=== PATIENT | female | born 1940 | race Caucasian/White ===

== ENCOUNTER 2020-09-06 07:12 | Outpatient (REF) | payer MEDICARE, SELFPAY ==
--- NOTE | ~2020-09-06 | XR_ITS ---
EXAMINATION: XR PELVIS CLINICAL INFORMATION: Hip pain. COMPARISON: None TECHNIQUE: AP view of the pelvis. FINDINGS: No acute fracture or dislocation. Severe bilateral hip joint space narrowing with mild bony remodeling, subchondral sclerosis, subchondral cystic change, and marginal osteophytes. Phleboliths within the pelvis. XR/XR pelvis 1-2V IMPRESSION: Severe right and left hip osteoarthritis.
== END 2020-09-06 07:13 | disposition home or self-care (01) ==
LOC: HO.HOSX 07:12
PROVIDERS: Visit Provider Orthopaedic Surgery
DX: M16.0 Bilateral primary osteoarthritis of hip (principal)
CPT/HCPCS: 72170; 99202

== ENCOUNTER → 2020-10-12 09:59 | Outpatient (BNVA) | payer MEDICARE, SELFPAY | PROVIDERS: PCP Nurse Practitioner Family; Visit Provider Orthopaedic Surgery ==

== ENCOUNTER → 2021-01-07 11:28 | Outpatient (BNVA) | payer MEDICARE, SELFPAY | PROVIDERS: Visit Provider Physician Assistant | DX: M16.11 Unilateral primary osteoarthritis, right hip (principal) | CPT/HCPCS: 99212 ==

== ENCOUNTER 2021-01-11 06:19 | Inpatient (IN) | payer MEDICARE, SELFPAY ==
[2021-01-04 11:51] VITALS: BP 169/77; PULSE 61; RESP 16; O2SAT 93; BMI 36.7
--- NOTE | 2021-01-04 12:37 | HO.ANESPROP2 ---
Documented by User: Holly Orellana NP 01/10/21 09:51 HPI - Anesthesia Eval Consult details Narrative: 71yo F for Right Hip Total Replacement on 01/11/21 Eliquis for afib Pacer in situ (interrogation from 11/2020 on chart) Per pest controller assistant, no absolute contraindiction to surgery PMFSH Active Problems Active Problems: All Active Problems (Updated 01/04/21 @ 12:34 by Homa Perez RN) Bilateral hip joint arthritis (Acute) Past Medical History Medical History (Updated 01/07/21 @ 12:07 by Ariana Allen PA-C) Atrial fibrillation Degenerative joint disease Hearing loss Hx of cardiac pacemaker Obesity (BMI 30-39.9) Obstructive sleep apnea Peripheral venous insufficiency Retinal artery occlusion TIA (transient ischemic attack) Transient cerebral ischemia Wears dentures Wears hearing aid in both ears Family History Family history of problems with anesthesia: No Surgical History Surgical History (Updated 01/04/21 @ 12:26 by Homa Perez RN) History of cataract surgery (~2016) History of esophagogastroduodenoscopy (EGD) Hx laparoscopic cholecystectomy Hx of colonoscopy Hx of tubal ligation Status post ORIF of fracture of ankle (~1984) History of Problems with Anesthesia: No Social History Social History (Updated 09/06/20 @ 08:38 by JOHAN Solares) Are you a primary career development director to a significant other at home: No Do you presently have visiting nurse or other home services: No Alcohol intake: never Patient Tobacco Use Status: Former Tobacco user Quit Date: 1999 Tobacco use type: Cigarette Use of substances other than those prescribed or required for medical reasons: No Have you been hit, kicked, punched, or otherwise hurt by someone within the past year? If so, by whom?: No Spiritual Healthcare Practices: none Yarsani Healthcare Practices: none Cultural Healthcare Practices: none Are you DNR?: No Advance Directives: No (will bring in) Advance Directives Information Provided: No Advance Directives on File: No Recently lost weight without trying: No Patient : No Current occupational status: retired Current occupation: right handed Narrative Narrative: No recent illness No CP/SOB with minimal activity Meds Allergies Allergy/AdvReac Type Severity Reaction Status Date / Time Seasonal Allergies Allergy Mild itching Verified 01/04/21 12:22 and sneezing Home Medications Medication Instructions Recorded Confirmed Last Taken Type duloxetine 30 mg capsule,delayed 30 mg PO Q OTHER DAY 09/03/20 01/04/21 Unknown History release metoprolol succinate 50 mg 50 mg PO DAILY 09/06/20 01/04/21 01/11/21 History tablet,extended release 24 hr apixaban 5 mg tablet (Eliquis) 5 mg PO BID 10/12/20 01/04/21 01/07/21 History acetaminophen 325 mg tablet 650 mg PO Q6H PRN 01/04/21 01/04/21 Unknown History (Tylenol) amiodarone 100 mg tablet 100 mg PO DAILY 01/04/21 01/04/21 Unknown History furosemide 20 mg tablet 20 mg PO DAILY 01/04/21 01/04/21 Unknown History losartan 50 mg tablet 50 mg PO DAILY 01/04/21 01/04/21 Unknown History Exam Exam Date and Time: January 04, 2021 1237 Height,Weight and Vital Signs: Height 5 ft 4 in Weight 97.069 kg Last Vital Signs Pulse 61 01/04/21 11:51 Resp 16 01/04/21 11:51 BP 169/77 H 01/04/21 11:51 Pulse Ox 93 01/04/21 11:51 Pertinent Lab Results Pertinent Lab Results: Laboratory Tests 01/06/21 10:43 WBC 7.2 Hgb 14.5 Hct 43.0 Plt Count 265 Laboratory Tests 01/04/21 13:16 Blood Type A Positive Antibody Screen NEGATIVE CMP, TSH, A1C 12/2020 WNL at PCP Narrative Narrative: EKG 12/16/20 paced rhythm versus SR with 1st degree AV block nonspecific ST-T wave abn ECHO 04/2019 Normal biV function. No significant valvular or pericardial pathology notes. Normal PA pressures. Pacer Interr 11/2020 Mode: AAIR<=>DDDR (mode switch 171) Lower rate: 60 PAINT LINE PRODUCTION SUPERVISOR <0.1% AP 99.4% Battery remainin.2yrs Airway Mallampati Class: II TM Dist: >3cm Neck ROM: Full Denture: Upper and Lower (Implants, removes at night) Heart: irreg Lungs: CTAB Assessment and Plan Assessment Anesthesia Assessment: Anesthesia Plan Discussed and PAT Visit Final Anesthetic Review Family History of Problems with Anesthesia: No History of Problems with Anesthesia: No Documented by User: Gigi Sorensen MD 01/11/21 08:19 [facility] Past Medical History Medical History (Updated 01/07/21 @ 12:07 by Ariana Allen PA-C) Atrial fibrillation Degenerative joint disease Hearing loss Hx of cardiac pacemaker Obesity (BMI 30-39.9) Obstructive sleep apnea Peripheral venous insufficiency Retinal artery occlusion TIA (transient ischemic attack) Transient cerebral ischemia Wears dentures Wears hearing aid in both ears Surgical History Surgical History (Updated 01/04/21 @ 12:26 by Homa Perez RN) History of cataract surgery (~2016) History of esophagogastroduodenoscopy (EGD) Hx laparoscopic cholecystectomy Hx of colonoscopy Hx of tubal ligation Status post ORIF of fracture of ankle (~1984) Social History Social History (Updated 09/06/20 @ 08:38 by JOHAN Solares) Are you a primary career development director to a significant other at home: No Do you presently have visiting nurse or other home services: No Alcohol intake: never Patient Tobacco Use Status: Former Tobacco user Quit Date: 1999 Tobacco use type: Cigarette Use of substances other than those prescribed or required for medical reasons: No Have you been hit, kicked, punched, or otherwise hurt by someone within the past year? If so, by whom?: No Spiritual Healthcare Practices: none Yarsani Healthcare Practices: none Cultural Healthcare Practices: none Are you DNR?: No Advance Directives: No (will bring in) Advance Directives Information Provided: No Advance Directives on File: No Recently lost weight without trying: No Patient : No Current occupational status: retired Current occupation: right handed Meds Allergies Allergy/AdvReac Type Severity Reaction Status Date / Time Seasonal Allergies Allergy Mild itching Verified 01/04/21 12:22 and sneezing Home Medications Medication Instructions Recorded Confirmed Last Taken Type duloxetine 30 mg capsule,delayed 30 mg PO Q OTHER DAY 09/03/20 01/04/21 Unknown History release metoprolol succinate 50 mg 50 mg PO DAILY 09/06/20 01/04/21 01/11/21 History tablet,extended release 24 hr apixaban 5 mg tablet (Eliquis) 5 mg PO BID 10/12/20 01/04/21 01/07/21 History acetaminophen 325 mg tablet 650 mg PO Q6H PRN 01/04/21 01/04/21 Unknown History (Tylenol) amiodarone 100 mg tablet 100 mg PO DAILY 01/04/21 01/04/21 Unknown History furosemide 20 mg tablet 20 mg PO DAILY 01/04/21 01/04/21 Unknown History losartan 50 mg tablet 50 mg PO DAILY 01/04/21 01/04/21 Unknown History Assessment and Plan Final Anesthetic Review ASA Class: III Final Preanesthetic Review: No Changes in Pt Med Stat, Meds/Allgs Chart Reviewed, Consent Obtained/Reviewed and Anes Risks/Benef Reviewed Patient Risk: High Procedure Risk: Intermediate Anesthetic Plan Anesthetic Plan: GA Disposition: Standard PACU
[2021-01-04 15:09] LABS: MRSA Nasal PCR NEGATIVE (Negative); SA Nasal PCR NEGATIVE (Negative)
[2021-01-06 10:44] LABS: MANUAL DIFF FLAG NO
[2021-01-06 11:03] LABS: Basophils Percent Auto 0.4 % (0-2); Eosinophils Absolute Auto 0.1 X10*3/uL (0.0-0.4); Hemoglobin 14.5 g/dl (12.0-16.0); Imm Gran Abs Auto 0.03 X10*3/uL (0.00-0.03); Imm Gran Pct Auto 0.4 % (0.0-0.4); Lymphocytes Absolute Auto 1.4 X10*3/uL (1.2-4.9); Lymphocytes Percent Auto 19.1 % (20-40); Mean Corpuscular HGB Conc 33.7 g/dl (31.0-35.0); Mean Corpuscular Hemoglobin 33.2 pg (27.0-33.0); Mean Corpuscular Volume 98.4 fL (80-98); Mean Platelet Volume 9.7 fL (9.4-12.3); Monocytes Absolute Auto 0.7 X10*3/uL (0.1-1.2); Monocytes Percent Auto 10.1 % (2-11); Neutrophils Absolute Auto 4.9 X10*3/uL (2.0-8.3); Platelet Count 265 X10*3/uL (160-400); Red Blood Count 4.37 X10*6/uL (4.20-5.50); Red Cell Distribution Width 12.9 % (11.0-16.0); White Blood Count 7.2 X10*3/uL (4.8-10.8)
[2021-01-11] VITALS (20 sets, daily range): BP systolic 127–214; BP diastolic 58–99; PULSE 60–71; RESP 14–22; TEMP 36.3–36.6; O2SAT 92–100
--- NOTE | ~2021-01-11 | XR_ITS ---
EXAMINATION: XR PELVIS CLINICAL INFORMATION: Right total hip replacement. COMPARISON: Pelvic radiograph dated from 09/06/2020. TECHNIQUE: AP view of the pelvis. FINDINGS: Status post total right-sided hip arthroplasty with expected postoperative edema and air. No evidence of periprosthetic fractures. The hardware is intact. Redemonstration of severe degenerative changes in the left hip with joint space narrowing, subchondral sclerosis, subchondral cystic changes, and marginal osteophytes. Mild to moderate degenerative changes in the pubic symphysis. Pelvic phleboliths. XR/XR pelvis 1-2V IMPRESSION: Postoperative changes following total right-sided hip arthroplasty without evidence of complications.
[2021-01-11 06:37] LABS: COVID-19 Test Negative (Negative)
[2021-01-11] MEDS: Lactated Ringers 1,000 ML 100 ML IVCONT (07:02)
--- NOTE | 2021-01-11 07:37 | MHC.SHP ---
Pre-Procedural Eval Section A Date of Service: 01/11/21 The patient is an INPATIENT: No Changes since office visit: Yes Patient answered all questions; No Cold of Flu in the past 2 weeks, No New Medical Problems and No Changes in Medication The History & Physical has been completed within 30 days and I have reviewed it.: Yes Section B Chief Complaint: osteoarthritis Allergies: Allergies Allergy/AdvReac Type Severity Reaction Status Date / Time Seasonal Allergies Allergy Mild itching Verified 01/04/21 12:22 and sneezing Plan I have reviewed the history and physical and performed a pertinent physical examination on my patient. No changes have occurred unless specified.
--- NOTE | 2021-01-11 07:38 | P.BOP_ITS ---
Brief Operative Note Date of Service: 01/11/21 Pre-op diagnosis: right hip OA Post-op diagnosis: same Procedure: Right THERON Implants: Juan Miguel accolade2 #4 127 deg/ Surgeon: Casa Lee MD Anesthesia: GETA and local Was an Human Services Program Specialist used for this Procedure?: No Human Services Program Specialist: Ariana Allen Estimated blood loss (mL): 200 IV fluids (mL): 1,000 Pathology: other Condition: stable Disposition: PACU
--- NOTE | 2021-01-11 07:38 | W.PM.OPN ---
Operative Note Operative Note Date of Service: 01/11/21 Narrative: Pre-op diagnosis: right hip OA Post-op diagnosis: same Procedure: Right THERON Implants: Juan Miguel accolade2 #4 127 deg/ Surgeon: Casa Lee MD Anesthesia: GETA and local Was an Trigonometry Tutor used for this Procedure?: No Trigonometry Tutor: Ariana Allen Estimated blood loss (mL): 200 IV fluids (mL): 1,000 Pathology: other Condition: stable Disposition: PACU Procedure in detail: Patient was brought into the operating room and placed in the left lateral decubitus position. All bony prominences were well padded and the limb was prepped and draped in standard sterile fashion. Time-out was called to identify proper site procedure proper surgeon IV antibiotics and 1 g of transaxemic acid were administered. I began by making a curvilinear incision over the posterolateral aspect of the greater trochanter. Dissection was taken down to the tensor fascia which was incised in line with the incision and a Charnley retractor was placed. Cautery was used to maintain hemostasis. A werewolf device was also used. The hip was internally rotated and the external rotators were identified. The vessels were cauterized and a full-thickness capsular/external rotator layer was developed starting just proximal to the piriformis. This layer was tagged and a dull Hohmann retractor was placed underneath the neck in the hip was dislocated. The head was deformed and eburnated. A neck cut was made 1 cm proximal to the lesser trochanter and the head and neck were removed and measured as a 45mm on the back table. I then placed my anterior-posterior acetabular retractors and performed a labrectomy. The cup was arthritic. I then started with a 42mm and sequentially reamed up to a size 50mm and impacted a 50 mm cep at approximately 45 degrees of inclination and 25 degrees of version. I then placed a neutral liner and turned my attention to the femur. I identified the piriformis insertion and used this as a starting point for my flores cutter. The medius tendon was protected with a Hibs retractor. I then used a Charnley awl to identify the canal and a curved curette to remove the lateral bone. I irrigated copiously. I then sequentially broached in the patient's natural version to a size 4 and placed my trial implants. Using a trail head I took the hip through range of motion. I was very satisfied with the stability and length. Therefore I removed all instrumentation and copiously irrigated. I placed my final femoral implants and again took the hip through range of motion and was satisfied with the stability and length. I then irrigated for 3 minutes with iodine and placed 1 g of local tranaxemic acid. I then performed a capsular closure with 2.0 fiberwire, Lurdes's fascia with 0 Vicryl, subcuticular with 2-0 Vicryl and the skin with charlie. Patient was placed into a sterile dressing. Local anesthetic was administered at the start and completion of the case. Radiographs were obtained at the completion of the case and I was satisfied with the component position. Patient was extubated brought to the recovery room in stable condition.
[2021-01-11] MEDS: ceFAZolin Sodium/Dextrose,Iso 2 GM/50 ML PIGGYBACK IV ×2 (08:00→14:17)
[2021-01-11] MEDS: oxyCODONE HCl Immed Release 5 MG TABLET PO ×3 (10:03→23:50)
[2021-01-11] MEDS: HYDROmorphone HCl 0.5 MG/0.5 ML SYRINGE 0.25 MG IVPUSH ×5 (10:04→20:59)
[2021-01-11] MEDS: Dextrose 5 % and 0.45 % NaCl 1,000 ML 80 ML IVCONT ×2 (11:42→23:56)
--- NOTE | 2021-01-11 14:52 | PM.IMCN ---
History of Present Illness Data of Consult Service Date: 01/11/21 Requesting physician: Casa Lee Primary Care Provider: Mert Yin MD [facility] Reason for consult: Medical management 80-year-old woman admitted by Orthopedic surgery and is status post right total hip arthroplasty. Vital signs are stable although blood pressure is elevated. She has good pain control at this time. She is currently on a bed in the chair. She has no acute medical complaints. Review of Systems Review of Systems: Denies any recent fever chills or decrease in appetite respiratory denies any shortness of breath coverage production cardiovascular denies chest pain gastrointestinal denies any dysphagia abdominal pain nausea vomiting or diarrhea genitourinary denies any dysuria frequency or hematuria musculoskeletal some pain to hip neuropsych denies any weakness or seizures all other systems reviewed are negative [facility] Medical History (Updated 01/11/21 @ 15:29 by Aydee Nicolas NP) Atrial fibrillation Degenerative joint disease Hearing loss Hx of cardiac pacemaker Obesity (BMI 30-39.9) Obstructive sleep apnea Peripheral venous insufficiency Retinal artery occlusion TIA (transient ischemic attack) Transient cerebral ischemia Wears dentures Wears hearing aid in both ears Pertinent family history: . Surgical History History of cataract surgery (~2016) History of esophagogastroduodenoscopy (EGD) Hx laparoscopic cholecystectomy Hx of colonoscopy Hx of tubal ligation Status post ORIF of fracture of ankle (~1984) Social History (Updated 09/06/20 @ 08:38 by JOHAN Solares) Are you a primary childcare teacher to a significant other at home: No Do you presently have visiting nurse or other home services: No Alcohol intake: never Patient Tobacco Use Status: Former Tobacco user Quit Date: 1999 Tobacco use type: Cigarette Use of substances other than those prescribed or required for medical reasons: No Currently Displaying Signs/Symptoms of Drug Intoxication Withdrawal: No Have you been hit, kicked, punched, or otherwise hurt by someone within the past year? If so, by whom?: No Spiritual Healthcare Practices: none Yazidism Healthcare Practices: none Cultural Healthcare Practices: none Are you DNR?: No Advance Directives: No (will bring in) Advance Directives Information Provided: No Advance Directives on File: No Do you have thoughts of harming others: None Do you have a plan to hurt others: No Plan Recently lost weight without trying: No Patient : No Current occupational status: retired Current occupation: right handed Meds Allergies Allergy/AdvReac Type Severity Reaction Status Date / Time Seasonal Allergies Allergy Mild itching Verified 01/04/21 12:22 and sneezing Active Medications: Current Medications Acetaminophen (Acetaminophen 325 Mg Tablet) 650 mg PO Q6H PRN PRN Reason: Pain, Mild (Pain Scale 1-3) Celecoxib (Celecoxib 200 Mg Capsule) 200 mg PO BID [facility] Docusate Sodium (Docusate Sodium 100 Mg Capsule) 100 mg PO BID [facility] Enoxaparin Sodium (Enoxaparin Sodium 40 Mg/0.4 Ml Syringe) 40 mg SUBCUT Q24H [place] Hydromorphone HCl (Hydromorphone Hcl 0.5 Mg/0.5 Ml Syringe) 0.25 mg IVPUSH Q4H PRN; Protocol PRN Reason: Pain, Severe (Pain Scale 7-10) Promethazine HCl 12.5 mg/ (Sodium Chloride) 50.5 mls @ 202 mls/hr IV ONCE PRN PRN Reason: Nausea and Vomiting Last Infusion: 01/11/21 10:23 Dose: Infused Documented by: Dextrose/Sodium Chloride (D51/2ns) 1,000 mls @ 80 mls/hr IVCONT .[id number] [facility] Last Admin: 01/11/21 11:42 Dose: 80 mls/hr Documented by: Cefazolin Sodium/Dextrose (Ancef) 2 gm in 50 mls @ 100 mls/hr IV POSTOP@1400 [facility] Last Admin: 01/11/21 14:17 Dose: 100 mls/hr Documented by: Ondansetron HCl (Ondansetron Hcl 4 Mg/2 Ml Vial) 4 mg IVPUSH ONCE PRN PRN Reason: Nausea and Vomiting Ondansetron HCl (Ondansetron Hcl 4 Mg/2 Ml Vial) 4 mg IVPUSH Q8H PRN PRN Reason: Nausea and Vomiting Oxycodone HCl (Oxycodone Hcl Immed Release 5 Mg Tablet) 5 mg PO Q4H PRN PRN Reason: Pain, Moderate (Pain Scale 4-6 Last Admin: 01/11/21 14:24 Dose: 5 mg Documented by: Sodium Chloride (0.9 % Sodium Chloride Flush 3 Ml Syringe) 3 ml IVFLUSH QSAKFT [facility] Home Medications Medication Instructions Recorded Confirmed Last Taken Type duloxetine 30 mg capsule,delayed 30 mg PO Q OTHER DAY 09/03/20 01/04/21 Unknown History release metoprolol succinate 50 mg 50 mg PO DAILY 09/06/20 01/04/21 01/11/21 History tablet,extended release 24 hr apixaban 5 mg tablet (Eliquis) 5 mg PO BID 10/12/20 01/04/21 01/07/21 History acetaminophen 325 mg tablet 650 mg PO Q6H PRN 01/04/21 01/04/21 Unknown History (Tylenol) amiodarone 100 mg tablet 100 mg PO DAILY 01/04/21 01/04/21 Unknown History furosemide 20 mg tablet 20 mg PO DAILY 01/04/21 01/04/21 Unknown History losartan 50 mg tablet 50 mg PO DAILY 01/04/21 01/04/21 Unknown History Physical Exam Vital Signs and Narrative: Vital Signs: Last Vital Signs Temp 97.6 F 01/11/21 12:38 Pulse 63 01/11/21 14:01 Resp 18 01/11/21 12:38 BP 188/89 H 01/11/21 12:38 Pulse Ox 98 01/11/21 14:01 Body Mass Index 36.7 Appearing in no acute distress head is normocephalic atraumatic eyes pupils are PERRLA sclera is anicteric mouth throat mucous membranes are intact and moist neck is supple no lymphadenopathy, no JVD noted lung sounds are clear to auscultation heart regular rate rhythm, clear S1, S2 positive bowel sounds, abdomen is soft, nontender neuro patient is alert x3, no focal deficits MSK surgical dressing intact, unable to visualize surgical incision as inital dressing is in place Results Labs CBC and Chem 7: 01/06/21 10:43 Labs: Laboratory Results - last 24 hr 01/11/21 06:10 COVID-19 (MICHELE) Negative COVID-19 Clin Com See Note Imaging Radiologist's Impressions: Impressions Pelvis X-Ray 01/11/21 08:29 IMPRESSION: Postoperative changes following total right-sided hip arthroplasty without evidence of complications. Assessment and Plan (1) Afib: Status: Acute (2) Hypertension: Status: Acute 80-year-old woman admitted by Orthopedic surgery and is status post right total hip arthroplasty Right total hip arthroplasty Management as per surgical team Pain management History of atrial fibrillation. Heart rate Continue amiodarone and metoprolol Apixaban on hold postoperatively Hypertension. Elevated blood pressure Continue losartan and Lasix DVT prophylaxis with mechanical compression boots Attending Dr. Go full code
[2021-01-11] MEDS: Celecoxib 200 MG CAPSULE PO (19:46)
[2021-01-11] MEDS: Docusate Sodium 100 MG CAPSULE PO (19:46)
[2021-01-11] MEDS: Acetaminophen 325 MG TABLET 650 MG PO (19:47)
[2021-01-12] VITALS (7 sets, daily range): BP systolic 116–164; BP diastolic 53–74; PULSE 62–72; RESP 16–18; TEMP 36.1–37; O2SAT 95–99
[2021-01-12] MEDS: HYDROmorphone HCl 0.5 MG/0.5 ML SYRINGE 0.25 MG IVPUSH ×3 (01:31→10:55)
[2021-01-12 05:09] LABS: MANUAL DIFF FLAG NO
[2021-01-12 05:12] LABS: Basophils Percent Auto 0.1 % (0-2); Hematocrit 32.2 % (37.0-47.0); Hemoglobin 10.2 g/dl (12.0-16.0); Imm Gran Abs Auto 0.05 X10*3/uL (0.00-0.03); Imm Gran Pct Auto 0.5 % (0.0-0.4); Lymphocytes Absolute Auto 0.7 X10*3/uL (1.2-4.9); Lymphocytes Percent Auto 6.6 % (20-40); Mean Corpuscular HGB Conc 31.7 g/dl (31.0-35.0); Mean Corpuscular Hemoglobin 33.4 pg (27.0-33.0); Mean Corpuscular Volume 105.6 fL (80.0-98.0); Monocytes Absolute Auto 0.9 X10*3/uL (0.1-1.2); Monocytes Percent Auto 8.1 % (2-11); Neutrophils Absolute Auto 8.88 x10*3/uL (2.0-8.3); Neutrophils Percent Auto 84.7 % (45-73); Platelet Count 195 X10*3/uL (160-400); Red Blood Count 3.05 X10*6/uL (4.20-5.50); White Blood Count 10.5 X10*3/uL (4.8-10.8)
[2021-01-12 07:33] LABS: Anion Gap 12 (12-20); Blood Urea Nitrogen 19 mg/dL (9-16); Carbon Dioxide 24 mmol/L (22-29); Chloride 103 mmol/L (96-108); Creatinine Clr Calc Pharmacy 74.7; Estimated Glomerular Filt Rate > 60; Glucose Fasting 151 mg/dL (60-99); Potassium 4.4 mmol/L (3.3-5.1); Sodium 135 mmol/L (135-145)
--- NOTE | 2021-01-12 08:06 | PM.PNORT ---
Subjective Subjective Date of Service: 01/12/21 Interval history: POD1 s/p RTHA with Dr. Lee. Patient is resting in bed in no acute distress. No overnight events. Physical Exam Vital Signs: Vital Signs: Last Vital Signs Temp 97.8 F 01/12/21 07:11 Pulse 63 01/12/21 07:11 Resp 17 01/12/21 07:11 BP 135/53 L 01/12/21 07:11 Pulse Ox 95 01/12/21 07:11 Body Mass Index 36.7 Const: General: cooperative, healthy appearing and no acute distress Resp: Effort & Inspection: normal respiratory effort and able to speak in complete sentences Cardio: Rate: regular rate Peripheral pulses: Peripheral pulses 2+ throughout GI: Palpation (GI): Soft to palpation Skin: Lesions: no lesions Rashes: no rashes Extrem: Other: Rt hip aquacel is clean. dry, and intact. NVI Procedures Date of Service Date of Service: 01/12/21 Progress Note: A&P Assessment and plan (1) S/P total hip arthroplasty: Status: Acute Assessment and Plan: Continue pain mgmnt Begin Lovenox for dvt ppx to resume Eliquis POD2 begin PT for RTHA Dispo planning-Pending PT eval, pain mgmnt Fall Risk Details Current Medications: Current Medications Acetaminophen (Acetaminophen 325 Mg Tablet) 650 mg PO Q6H PRN PRN Reason: Pain, Mild (Pain Scale 1-3) Last Admin: 01/11/21 19:47 Dose: 650 mg Documented by: Amiodarone HCl (Amiodarone Hcl 200 Mg Tablet) 100 mg PO DAILY [facility] Celecoxib (Celecoxib 200 Mg Capsule) 200 mg PO BID [facility] Last Admin: 01/11/21 19:46 Dose: 200 mg Documented by: Docusate Sodium (Docusate Sodium 100 Mg Capsule) 100 mg PO BID [facility] Last Admin: 01/11/21 19:46 Dose: 100 mg Documented by: Duloxetine HCl (Duloxetine Hcl 30 Mg Capsule.) 30 mg PO DAILY [facility] Enoxaparin Sodium (Enoxaparin Sodium 40 Mg/0.4 Ml Syringe) 40 mg SUBCUT Q24H [facility] Furosemide (Furosemide 20 Mg Tablet) 20 mg PO DAILY [facility]; Protocol Hydromorphone HCl (Hydromorphone Hcl 0.5 Mg/0.5 Ml Syringe) 0.25 mg IVPUSH Q4H PRN; Protocol PRN Reason: Pain, Severe (Pain Scale 7-10) Last Admin: 01/12/21 05:28 Dose: 0.25 mg Documented by: Promethazine HCl 12.5 mg/ (Sodium Chloride) 50.5 mls @ 202 mls/hr IV ONCE PRN PRN Reason: Nausea and Vomiting Last Infusion: 01/11/21 10:23 Dose: Infused Documented by: Dextrose/Sodium Chloride (D51/2ns) 1,000 mls @ 80 mls/hr IVCONT .[id number] [facility] Last Admin: 01/11/21 23:56 Dose: 80 mls/hr Documented by: Cefazolin Sodium/Dextrose (Ancef) 2 gm in 50 mls @ 100 mls/hr IV POSTOP@1400 [facility] Last Infusion: 01/11/21 14:53 Dose: Infused Documented by: Losartan Potassium (Losartan Potassium 50 Mg Tablet) 50 mg PO DAILY [facility]; Protocol Metoprolol Succinate (Metoprolol Succinate Er 50 Mg Tab.Er.24h) 50 mg PO DAILY [facility]; Protocol Ondansetron HCl (Ondansetron Hcl 4 Mg/2 Ml Vial) 4 mg IVPUSH ONCE PRN PRN Reason: Nausea and Vomiting Ondansetron HCl (Ondansetron Hcl 4 Mg/2 Ml Vial) 4 mg IVPUSH Q8H PRN PRN Reason: Nausea and Vomiting Oxycodone HCl (Oxycodone Hcl Immed Release 5 Mg Tablet) 5 mg PO Q4H PRN PRN Reason: Pain, Moderate (Pain Scale 4-6 Last Admin: 01/11/21 23:50 Dose: 5 mg Documented by: Sodium Chloride (0.9 % Sodium Chloride Flush 3 Ml Syringe) [facility] Last Admin: 01/12/21 01:15 Dose: Not Given Documented by: Time Spent With Patient Time: Total time spent is greater than 50% in coordination of care (as documented) at patient's floor/unit and/or counseling patient: Time with patient: less than 15 minutes Quality Stroke Does the patient have a stroke diagnosis?: No VTE Prior VTE?: No VTE Risk Level:: Medical - moderate - high VTE Device Contraindication: N/A - Device Ordered VTE Drug Contraindication: N/A - Med Ordered
[2021-01-12] MEDS: Metoprolol Succinate ER 50 MG TAB.ER.24H PO (08:41)
[2021-01-12] MEDS: Losartan Potassium 50 MG TABLET PO (08:41)
[2021-01-12] MEDS: oxyCODONE HCl Immed Release 5 MG TABLET PO ×3 (08:41→17:26)
[2021-01-12] MEDS: Enoxaparin Sodium 40 MG/0.4 ML SYRINGE SUBCUT (08:41)
[2021-01-12] MEDS: Amiodarone HCL 200 MG TABLET 100 MG PO (08:41)
[2021-01-12] MEDS: Furosemide 20 MG TABLET PO (08:41)
[2021-01-12] MEDS: Docusate Sodium 100 MG CAPSULE PO ×2 (08:41→20:50)
[2021-01-12] MEDS: Celecoxib 200 MG CAPSULE PO ×2 (08:41→20:50)
[2021-01-12] MEDS: DULoxetine HCl 30 MG CAPSULE.DR PO (08:41)
--- NOTE | 2021-01-12 09:36 | MHC.CM.PN ---
IMM 01/12/21, EMR REVIEWED, PT ADMITTED W/RIGHT THERON, PT REPORTS SHE LIVES W/, HAS A ROLLATER WALKER ON LOAN FROM [facility] AND HYDRAULIC LIFT FOR TUB HOWEVER HAS TO USES STEPS TO GET TO IT. PT HAS NO HOME SERVICES AND IS INSISTENT SHE WANTS TO GOT TO STR, PT'S PREFERENCE IS [facility] HOWEVER WILL GO [facility] IF MM IS UNABLE TO SECURE BED, PT VERIFIES PCP AND HCP, NO HCP ON FILE HOWEVER PT REPORTS SHE GAVE HER HCP TO ORTHO PA AND CM WILL CONTACT ORTHO FOR COPY, PT DOES REPORT HER HCP IS HER MARLEEN TAVARES [phone]. D/C PLAN: STR W/ACTION FOR BLS TRANSPORT
--- NOTE | 2021-01-12 10:04 | HO.PM.IMPN ---
Subjective Subjective Date of Service: 01/12/21 Interval History: f/u on hip post hip arthroplasty, doing well , afib is controlled, BP contoleed Review of Systems no chest pain no sob no fever so ache in the operated hip Physical Exam Vital Signs: Vital Signs: Last Vital Signs Temp 97.8 F 01/12/21 07:11 Pulse 63 01/12/21 09:25 Resp 17 01/12/21 07:11 BP 135/53 L 01/12/21 09:25 Pulse Ox 95 01/12/21 09:25 Body Mass Index 36.7 General: AO X 3, no acute distress Resp: CTA bilateral CVS: S1,S2,RRR GI: +BS, NT, no distention Skin: No rash, hip area dressing intact Neuro: motor grossly intact Psych: appropriate affect Objective Data Active Medications Acetaminophen (Acetaminophen 325 Mg Tablet) 650 mg PO Q6H PRN PRN Reason: Pain, Mild (Pain Scale 1-3) Last Admin: 01/11/21 19:47 Dose: 650 mg Documented by: RANDALL Amiodarone HCl (Amiodarone Hcl 200 Mg Tablet) 100 mg PO DAILY [facility] Last Admin: 01/12/21 08:41 Dose: 100 mg Documented by: MALDONADO Celecoxib (Celecoxib 200 Mg Capsule) 200 mg PO BID [facility] Last Admin: 01/12/21 08:41 Dose: 200 mg Documented by: MALDONADO Docusate Sodium (Docusate Sodium 100 Mg Capsule) 100 mg PO BID [facility] Last Admin: 01/12/21 08:41 Dose: 100 mg Documented by: MALDONADO Duloxetine HCl (Duloxetine Hcl 30 Mg Capsule.) 30 mg PO DAILY [facility] Last Admin: 01/12/21 08:41 Dose: 30 mg Documented by: MALDONADO Enoxaparin Sodium (Enoxaparin Sodium 40 Mg/0.4 Ml Syringe) 40 mg SUBCUT Q24H [facility] Last Admin: 01/12/21 08:41 Dose: 40 mg Documented by: MALDONADO Furosemide (Furosemide 20 Mg Tablet) 20 mg PO DAILY [facility]; Protocol Last Admin: 01/12/21 08:41 Dose: 20 mg Documented by: MALDONADO Hydromorphone HCl (Hydromorphone Hcl 0.5 Mg/0.5 Ml Syringe) 0.25 mg IVPUSH Q4H PRN; Protocol PRN Reason: Pain, Severe (Pain Scale 7-10) Last Admin: 01/12/21 05:28 Dose: 0.25 mg Documented by: DONTAE Promethazine HCl 12.5 mg/ (Sodium Chloride) 50.5 mls @ 202 mls/hr IV ONCE PRN PRN Reason: Nausea and Vomiting Last Infusion: 01/11/21 10:23 Dose: 0 mls/hr Documented by: ANDERSON Dextrose/Sodium Chloride (D51/2ns) 1,000 mls @ 80 mls/hr IVCONT .[id number] [facility] Last Admin: 01/11/21 23:56 Dose: 80 mls/hr Documented by: DONTAE Cefazolin Sodium/Dextrose (Ancef) 2 gm in 50 mls @ 100 mls/hr IV POSTOP@1400 [facility] Last Infusion: 01/11/21 14:53 Dose: 0 mls/hr Documented by: COTEMA Losartan Potassium (Losartan Potassium 50 Mg Tablet) 50 mg PO DAILY [facility]; Protocol Last Admin: 01/12/21 08:41 Dose: 50 mg Documented by: MALDONADO Metoprolol Succinate (Metoprolol Succinate Er 50 Mg Tab.Er.24h) 50 mg PO DAILY [facility]; Protocol Last Admin: 01/12/21 08:41 Dose: 50 mg Documented by: MALDONADO Ondansetron HCl (Ondansetron Hcl 4 Mg/2 Ml Vial) 4 mg IVPUSH ONCE PRN PRN Reason: Nausea and Vomiting Ondansetron HCl (Ondansetron Hcl 4 Mg/2 Ml Vial) 4 mg IVPUSH Q8H PRN PRN Reason: Nausea and Vomiting Oxycodone HCl (Oxycodone Hcl Immed Release 5 Mg Tablet) 5 mg PO Q4H PRN PRN Reason: Pain, Moderate (Pain Scale 4-6 Last Admin: 01/12/21 08:41 Dose: 5 mg Documented by: MALDONADO Sodium Chloride (0.9 % Sodium Chloride Flush 3 Ml Syringe) [facility] Last Admin: 01/12/21 08:44 Dose: Not Given Documented by: MALDONADO Non-Admin Reason: IV Running Labs CBC & Chem 7: 01/12/21 04:55 01/12/21 06:41 Labs: Laboratory Results - last 24 hr 01/12/21 01/12/21 04:55 06:41 MCV 105.6 H MCH 33.4 H MCHC 31.7 RDW 13.0 Plt Count 195 MPV 10.0 Immature Gran % (Auto) 0.5 H Neut % (Auto) 84.7 H Lymph % (Auto) 6.6 L Moore % (Auto) 8.1 Eos % (Auto) 0.0 Baso % (Auto) 0.1 Lymph # (Auto) 0.7 L Moore # (Auto) 0.9 Eos # (Auto) 0.0 Baso # (Auto) 0.0 Abs Immat Gran (auto) 0.05 H Absolute Neuts (auto) 8.88 H Absolute Nucleated RBC 0.000 Nucleated RBC % (auto) 0.0 Anion Gap 12 Estim Creat Clear Calc 74.7 Estimated GFR > 60 Fasting Glucose 151 H Calcium 8.0 L Assessment and Plan (1) Afib: Status: Acute (2) Hypertension: Status: Acute Assessment and Plan: 80/F with AFIB, HTN, s/p elective R TKT, doing well POD1 s/p Right total hip arthroplasty Management by Ortho Chronic atrial fibrillation.? rate and rythm controlled. Continue amiodarone and metoprolol Apixaban to be resume when deemed apropirated by ortho Hypertension.?Controlled, continue Losartand and Lasix. DVT prophylaxis with mechanical compression boots, and apixiban to re be restarted later Quality Stroke Does the patient have a stroke diagnosis?: No VTE Prior VTE?: No VTE Risk Level:: Medical - moderate - high VTE Device Contraindication: N/A - Device Ordered VTE Drug Contraindication: N/A - Med Ordered
--- NOTE | 2021-01-12 12:55 | HO.POSTANES ---
Post Anesthesia Evaluation Post Anesthesia Evaluation Vital Signs: Vital Signs Temp Pulse Resp BP Pulse Ox 01/12/21 12:00 97.6 F 67 18 140/56 H 95 01/12/21 09:25 63 135/53 L 95 01/12/21 07:11 97.8 F 63 17 135/53 L 95 01/12/21 03:44 97 F 62 16 164/74 H 99 Anesthesia: General Mental Status: Awake Pain Control: Satisfactory Nausea/Vomiting: None Hydration: Adequate Anesthesia-Related Issues: No Anes. Related Issues
[2021-01-12] MEDS: Acetaminophen 325 MG TABLET 650 MG PO (13:12)
[2021-01-12] MEDS: 0.9 % Sodium Chloride Flush 3 ML SYRINGE IVFLUSH ×2 (15:17→20:52)
[2021-01-13] VITALS: BP 147/80; RESP 16; TEMP 36.1; O2SAT 99
[2021-01-13] MEDS: oxyCODONE HCl Immed Release 5 MG TABLET PO ×3 (00:33→10:10)
[2021-01-13 04:00] VITALS: RESP 16
[2021-01-13 05:32] LABS: MANUAL DIFF FLAG NO
[2021-01-13 05:43] LABS: Basophils Percent Auto 0.1 % (0-2); Eosinophils Percent Auto 0.3 % (0-4); Hematocrit 33.4 % (37.0-47.0); Hemoglobin 11.2 g/dl (12.0-16.0); Imm Gran Abs Auto 0.06 X10*3/uL (0.00-0.03); Imm Gran Pct Auto 0.7 % (0.0-0.4); Lymphocytes Absolute Auto 1.6 X10*3/uL (1.2-4.9); Lymphocytes Percent Auto 18.8 % (20-40); Mean Corpuscular HGB Conc 33.5 g/dl (31.0-35.0); Mean Corpuscular Hemoglobin 33.3 pg (27.0-33.0); Mean Corpuscular Volume 99.4 fL (80.0-98.0); Mean Platelet Volume 10.1 fL (9.4-12.3); Monocytes Absolute Auto 1.1 X10*3/uL (0.1-1.2); Monocytes Percent Auto 13.1 % (2-11); Neutrophils Absolute Auto 5.81 x10*3/uL (2.0-8.3); Platelet Count 199 X10*3/uL (160-400); Red Blood Count 3.36 X10*6/uL (4.20-5.50); Red Cell Distribution Width 13.2 % (11.0-16.0); White Blood Count 8.7 X10*3/uL (4.8-10.8)
[2021-01-13 05:59] LABS: Anion Gap 8 (12-20); Blood Urea Nitrogen 24 mg/dL (9-16); Calcium 8.2 mg/dL (8.4-10.2); Carbon Dioxide 29 mmol/L (22-29); Chloride 106 mmol/L (96-108); Estimated Glomerular Filt Rate > 60; Glucose Fasting 116 mg/dL (60-99); Potassium 5.2 mmol/L (3.3-5.1); Sodium 138 mmol/L (135-145)
[2021-01-13 07:42] VITALS: BP 147/80; O2SAT 99
[2021-01-13 07:50] VITALS: BP 138/64; PULSE 86; RESP 18; TEMP 36.2; O2SAT 95
--- NOTE | 2021-01-13 09:26 | P.DS_ITS ---
DS: Providers Provider Date of Service: 01/13/21 Date of admission: 01/11/21 06:19 Primary care physician: Mert Yin MD Consults: 01/11/21 12:15 Consult to Hospitalist Routine Consulting Provider: Hospitalist Reason For Exam: medical managment DS: Diagnosis Discharge Diagnosis (1) S/P total hip arthroplasty: Status: Acute DS: Summary Hospital Course Hospital Course: The patient underwent a successful right total hip arthroplasty, was transferred to PACU and then to the floor to recover. During their stay, their vitals were stable, afebrile at 97.1. Labs were unremarkable, H/H 11.2/33.4. POD 1 she was started on lovenox for DVT ppx, they also received PT/OT services twice a day. Prior to discharge, their dressing was change, incision clean dry and intact, new Aquacel dressing applied and the plan was to be discharged to [facility]. She should resume her home dose of Eliquis 01/14/21 Time Spent with Patient Time attestation: Total time spent providing and/or coordinating discharge services: Discharge coordination time: Less than 30 minutes Quality: Stroke Does the patient have a stroke diagnosis?: No Physical Exam Vital Signs: Vital Signs: Last Vital Signs Temp 97.1 F 01/13/21 07:50 Pulse 86 01/13/21 07:50 Resp 18 01/13/21 07:50 BP 138/64 01/13/21 07:50 Pulse Ox 95 01/13/21 07:50 Body Mass Index 36.7 Extrem: Other: incision clean dry and intact. [place] intact. No erythema or effusion. Calf supple nontender. Neurovascularly intact. DS: Data Data Completed and Pending Pending studies at discharge: Pending at discharge 01/11/21 08:30 Surgical [PTH] Routine Labs on day of discharge: Laboratory Results - last 24 hr 01/13/21 01/13/21 05:15 05:15 WBC 8.7 RBC 3.36 L Hgb 11.2 L Hct 33.4 L MCV 99.4 H D MCH 33.3 H MCHC 33.5 RDW 13.2 Plt Count 199 MPV 10.1 Immature Gran % (Auto) 0.7 H Neut % (Auto) 67.0 Lymph % (Auto) 18.8 L [place] % (Auto) 13.1 H Eos % (Auto) 0.3 Baso % (Auto) 0.1 Lymph # (Auto) 1.6 [place] # (Auto) 1.1 Eos # (Auto) 0.0 Baso # (Auto) 0.0 Abs Immat Gran (auto) 0.06 H Absolute Neuts (auto) 5.81 Absolute Nucleated RBC 0.000 Nucleated RBC % (auto) 0.0 Sodium 138 Potassium 5.2 H Chloride 106 Carbon Dioxide 29 Anion Gap 8 L BUN 24 H Creatinine 0.77 Estim Creat Clear Calc 67.0 Estimated GFR > 60 Fasting Glucose 116 H Calcium 8.2 L Discharge Plan Discharge Patient Disposition: er [facility] Discharge Diagnosis: s/p RT THERON Referrals: Ariana Allen PA-C [Physician Forestry And Wildlife Manager] - 2 Weeks (01/27/21 11:30 [facility] Orthopedic Surgeons Ariana Allen PA-C) Discharge Medications: New docusate sodium 100 mg Capsule 100 mg PO BID 30 Days Qty: 60 RF: 0 oxycodone 5 mg Tablet 5 mg PO Q4H PRN (Reason: Pain, Moderate (Pain Scale 4-6) 7 Days Qty: 42 RF: 0 Continued losartan 50 mg Tablet 50 mg PO DAILY RF: 0 furosemide 20 mg Tablet 20 mg PO BID RF: 0 amiodarone 100 mg Tablet 100 mg PO DAILY RF: 0 acetaminophen [Tylenol] 325 mg Tablet 650 mg PO Q6H PRN (Reason: Pain) RF: 0 duloxetine 30 mg capsule,delayed release(DR/EC) 30 mg PO DAILY RF: 0 metoprolol succinate 50 mg tablet extended release 24 hr 50 mg PO DAILY RF: 0 Eliquis 5 mg tablet 5 mg PO BID RF: 0 Discharge Orders: Discharge Order (Routine); Ordered 01/13/21 Ordered By: Ariana Allen Diet: regular diet Activity on Discharge: Use cane or walker Stand Alone Forms: Patient Portal Discharge page Care Plan Goals: Restore function of joint Health Concerns: none Plan of Treatment: Physical Therapy Pain management DVT prophylaxis Assessment: * Physical Therapy for Total hip arthroplasty: posterior precautions, gait training, ROM, strength * Limit stair climbing * No showering, no tub bath-keep dressing clean, dry and intact * No driving x6 weeks * Resume Home dose Eliquis 01/14/21 * Follow up with [facility] Orthopedics in 2 weeks
[2021-01-13] MEDS: Losartan Potassium 50 MG TABLET PO (09:59)
[2021-01-13] MEDS: Celecoxib 200 MG CAPSULE PO (09:59)
[2021-01-13] MEDS: Furosemide 20 MG TABLET PO (09:59)
[2021-01-13] MEDS: 0.9 % Sodium Chloride Flush 3 ML SYRINGE IVFLUSH (09:59)
[2021-01-13] MEDS: Amiodarone HCL 200 MG TABLET 100 MG PO (09:59)
[2021-01-13] MEDS: DULoxetine HCl 30 MG CAPSULE.DR PO (09:59)
[2021-01-13] MEDS: Docusate Sodium 100 MG CAPSULE PO (09:59)
[2021-01-13] MEDS: Metoprolol Succinate ER 50 MG TAB.ER.24H PO (10:00)
[2021-01-13] MEDS: Enoxaparin Sodium 40 MG/0.4 ML SYRINGE SUBCUT (10:00)
--- NOTE | 2021-01-13 10:09 | HO.PM.IMPN ---
Subjective Subjective Date of Service: 01/13/21 Interval History: f/u on hip post hip arthroplasty, doing well , no new issues, ready to go to rehab Review of Systems no chest pain no sob no fever so ache in the operated hip Constitutional General: AO X 3, no acute distress Resp: CTA bilateral CVS: S1,S2,RRR GI: +BS, NT, no distention Skin: No rash, wound d/c/i Neuro: motor grossly intact Psych: appropriate affect Physical Exam Vital Signs: Vital Signs: Last Vital Signs Temp 97.1 F 01/13/21 07:50 Pulse 86 01/13/21 07:50 Resp 18 01/13/21 07:50 BP 138/64 01/13/21 07:50 Pulse Ox 95 01/13/21 07:50 Body Mass Index 36.7 Objective Data Active Medications Acetaminophen (Acetaminophen 325 Mg Tablet) 650 mg PO Q6H PRN PRN Reason: Pain, Mild (Pain Scale 1-3) Last Admin: 01/12/21 13:12 Dose: 650 mg Documented by: MALDONADO Amiodarone HCl (Amiodarone Hcl 200 Mg Tablet) 100 mg PO DAILY [facility] Last Admin: 01/13/21 09:59 Dose: 100 mg Documented by: LISA Celecoxib (Celecoxib 200 Mg Capsule) 200 mg PO BID [facility] Last Admin: 01/13/21 09:59 Dose: 200 mg Documented by: LISA Docusate Sodium (Docusate Sodium 100 Mg Capsule) 100 mg PO BID [facility] Last Admin: 01/13/21 09:59 Dose: 100 mg Documented by: LISA Duloxetine HCl (Duloxetine Hcl 30 Mg Capsule.Dr) 30 mg PO DAILY [facility] Last Admin: 01/13/21 09:59 Dose: 30 mg Documented by: LISA Enoxaparin Sodium (Enoxaparin Sodium 40 Mg/0.4 Ml Syringe) 40 mg SUBCUT Q24H [facility] Last Admin: 01/13/21 10:00 Dose: 40 mg Documented by: LISA Furosemide (Furosemide 20 Mg Tablet) 20 mg PO DAILY [facility]; Protocol Last Admin: 01/13/21 09:59 Dose: 20 mg Documented by: LISA Hydromorphone HCl (Hydromorphone Hcl 0.5 Mg/0.5 Ml Syringe) 0.25 mg IVPUSH Q4H PRN; Protocol PRN Reason: Pain, Severe (Pain Scale 7-10) Last Admin: 01/12/21 10:55 Dose: 0.25 mg Documented by: BAILEE Promethazine HCl 12.5 mg/ (Sodium Chloride) 50.5 mls @ 202 mls/hr IV ONCE PRN PRN Reason: Nausea and Vomiting Last Infusion: 01/11/21 10:23 Dose: 0 mls/hr Documented by: ANDERSON Cefazolin Sodium/Dextrose (Ancef) 2 gm in 50 mls @ 100 mls/hr IV POSTOP@1400 [facility] Last Admin: 01/12/21 13:52 Dose: Not Given Documented by: BAILEE Non-Admin Reason: given postop x1 yesterday Losartan Potassium (Losartan Potassium 50 Mg Tablet) 50 mg PO DAILY [facility]; Protocol Last Admin: 01/13/21 09:59 Dose: 50 mg Documented by: LISA Metoprolol Succinate (Metoprolol Succinate Er 50 Mg Tab.Er.24h) 50 mg PO DAILY [facility]; Protocol Last Admin: 01/13/21 10:00 Dose: 50 mg Documented by: LISA Ondansetron HCl (Ondansetron Hcl 4 Mg/2 Ml Vial) 4 mg IVPUSH ONCE PRN PRN Reason: Nausea and Vomiting Ondansetron HCl (Ondansetron Hcl 4 Mg/2 Ml Vial) 4 mg IVPUSH Q8H PRN PRN Reason: Nausea and Vomiting Oxycodone HCl (Oxycodone Hcl Immed Release 5 Mg Tablet) 5 mg PO Q4H PRN PRN Reason: Pain, Moderate (Pain Scale 4-6 Last Admin: 01/13/21 05:40 Dose: 5 mg Documented by: MURALI Sodium Chloride (0.9 % Sodium Chloride Flush 3 Ml Syringe) [facility] Last Admin: 01/13/21 09:59 Dose: 3 ml Documented by: LISA Labs CBC & Chem 7: 01/13/21 05:15 01/13/21 05:15 Labs: Laboratory Results - last 24 hr 01/13/21 01/13/21 05:15 05:15 MCV 99.4 H D MCH 33.3 H MCHC 33.5 RDW 13.2 Plt Count 199 MPV 10.1 Immature Gran % (Auto) 0.7 H Neut % (Auto) 67.0 Lymph % (Auto) 18.8 L [place] % (Auto) 13.1 H Eos % (Auto) 0.3 Baso % (Auto) 0.1 Lymph # (Auto) 1.6 [place] # (Auto) 1.1 Eos # (Auto) 0.0 Baso # (Auto) 0.0 Abs Immat Gran (auto) 0.06 H Absolute Neuts (auto) 5.81 Absolute Nucleated RBC 0.000 Nucleated RBC % (auto) 0.0 Anion Gap 8 L Estim Creat Clear Calc 67.0 Estimated GFR > 60 Fasting Glucose 116 H Calcium 8.2 L Assessment and Plan (1) S/P total hip arthroplasty: Status: Acute Assessment and Plan: 80/F with AFIB, HTN, s/p elective R TKT, doing well POD1 s/p Right total hip arthroplasty Management by Ortho Mild increase increase in K 5.2 , no specific treatment, Chronic atrial fibrillation.? rate and rythm controlled. Continue amiodarone and metoprolol Apixaban should be restarted Hypertension.?Controlled, continue Losartand and Lasix. medically ok, to discharge.. No change in home meds. signing off Quality Stroke Does the patient have a stroke diagnosis?: No VTE Prior VTE?: No VTE Risk Level:: Medical - moderate - high VTE Device Contraindication: N/A - Device Ordered VTE Drug Contraindication: N/A - Med Ordered
--- NOTE | 2021-01-13 10:14 | MHC.CM.PN ---
nurse care fozia cummings electronic medical record reviewed along with case discussed via tiger text with orthopedic surgical pc patient to be d/c today and she is aware of this . discharge plan str at [facility] transportation for 1 pm via action [facility] imm completed 01/11/21
== END 2021-01-13 13:19 | disposition skilled nursing facility (03) | DRG 470 ==
LOC: HO.SSSA 06:20 → HO.S3 10:38
PROVIDERS: Physician Assistant; Admitting Provider Orthopaedic Surgery; PCP Family Medicine; Visit Provider Orthopaedic Surgery
PROC: 0SR90JA Replacement of Right Hip Joint with Synthetic Substitute, Uncemented, Open Approach (ICD-10-PCS; CPT 27130; principal; 2021-01-11 07:30)
DX: M16.11 Unilateral primary osteoarthritis, right hip (principal); I48.20 Chronic atrial fibrillation, unspecified; Z20.822 Contact with and (suspected) exposure to COVID-19; H53.8 Other visual disturbances; I69.898 Other sequelae of other cerebrovascular disease; Z87.891 Personal history of nicotine dependence; Z79.01 Long term (current) use of anticoagulants; Z79.899 Other long term (current) drug therapy
CPT/HCPCS: 36415; 72170; 80048; 85025; 86850; 86900; 86901; 87635; 87640; 87641; 88304; 88311; 97110; 97116; 97162; 97166; 97535; C1713; C1776; J0131; J0690; J1100; J1170; J1650; J2250; J2370; J2405; J2550; J2765; J3010

== ENCOUNTER → 2021-01-27 11:31 | Outpatient (BNVA) | payer MEDICARE, SELFPAY | PROVIDERS: Visit Provider Physician Assistant | DX: Z47.1 Aftercare following joint replacement surgery (principal); Z96.649 Presence of unspecified artificial hip joint | CPT/HCPCS: 99212 ==

== ENCOUNTER → 2021-02-25 11:23 | Outpatient (BNVA) | payer MEDICARE, SELFPAY | PROVIDERS: Visit Provider Physician Assistant | DX: Z47.1 Aftercare following joint replacement surgery (principal); Z96.641 Presence of right artificial hip joint | CPT/HCPCS: 99212 ==

== ENCOUNTER 2021-04-11 08:39 | Outpatient (REF) | payer MEDICARE, SELFPAY ==
--- NOTE | ~2021-04-11 | XR_ITS ---
EXAMINATION: XR PELVIS CLINICAL INFORMATION: Pain in unspecified hip. COMPARISON: Radiographs of the pelvis done on 01/11/2021. TECHNIQUE: AP view of the pelvis. FINDINGS: Postsurgical changes are noted at right hip. The visualized part of the right hip prosthesis appears intact. The distalmost part of the prosthesis is not included within the [id number]. Mild diffuse osteopenia is noted. Mild osteoarthrosis is seen at the left hip. Coarse trabecular pattern is noted at the left proximal femur including the, shows interval progression. XR/XR pelvis 1-2V IMPRESSION: No radiographic evidence of any displaced pelvic fracture. If left hip fracture is clinically suspected, follow-up dedicated 2 views should be obtained for further clarification.
== END 2021-04-11 08:40 | disposition home or self-care (01) ==
LOC: HO.HOSX 08:39
PROVIDERS: Visit Provider Orthopaedic Surgery
DX: Z47.1 Aftercare following joint replacement surgery (principal); Z96.641 Presence of right artificial hip joint
CPT/HCPCS: 72170; 99212

== ENCOUNTER 2021-08-19 13:24 | Outpatient (REF) | payer MEDICARE, SELFPAY ==
--- NOTE | ~2021-08-19 | XR_ITS ---
EXAMINATION: XR LUMBOSACRAL SPINE CLINICAL INFORMATION: Low back pain COMPARISON: None TECHNIQUE: Three views of the lumbosacral spine. FINDINGS: There is curvature of the lumbar spine to the right. Bone alignment is otherwise normal. No fracture or dislocation is seen. There is degenerative disc disease and spondylosis at L2-L3. There is degenerative disc disease at L1-L2, L3-L4 and L5-S1. There is lower lumbar spine facet arthritis. There is evidence of atherosclerotic disease. There is a hip replacement. XR/XR lumbar spine 2-3V IMPRESSION: Scoliosis and degenerative changes.
== END 2021-08-19 13:25 | disposition home or self-care (01) ==
LOC: HO.XRAY 13:24
PROVIDERS: PCP Family Medicine; Referring Provider Family Medicine; Visit Provider Physician Assistant
DX: M54.50 Low back pain, unspecified (principal); G89.29 Other chronic pain
CPT/HCPCS: 72100

== ENCOUNTER → 2021-11-10 09:23 | Outpatient (BNVA) | payer MEDICARE, SELFPAY | PROVIDERS: PCP Family Medicine; Visit Provider Orthopaedic Surgery | DX: M75.41 Impingement syndrome of right shoulder (principal) | CPT/HCPCS: 20610; 99212; J1100 ==

== ENCOUNTER 2022-01-05 16:17 | Outpatient (REF) | payer MEDICARE, SELFPAY | END 2022-01-05 16:18 | disposition home or self-care (01) | LOC: HO.HOSX 16:17 | PROVIDERS: Visit Provider Orthopaedic Surgery | DX: Z13.89 Encounter for screening for other disorder (principal) ==

== ENCOUNTER 2022-01-06 | Outpatient (REF) | payer MEDICARE, SELFPAY ==
--- NOTE | ~2022-01-06 | XR_ITS ---
EXAMINATION: XR PELVIS CLINICAL INFORMATION: Hip pain COMPARISON: Pelvic radiographs 04/11/2021, 01/11/2021 TECHNIQUE: AP x2 views of the pelvis. FINDINGS: There is bipolar right hip replacement. Hardware intact. No destructive process or osteolysis. Prominent osteoarthritic changes are again seen left hip with axial narrowing, subchondral sclerosis, and osteophytes at base femoral head and acetabular rim. No erosive change or visible chondrocalcinosis. Mild benign buttressing medial femoral neck again noted. The bony pelvis is stable. The SI joints and pubis are similar to prior studies. There is mild osteitis pubis. Numerous calcified phleboliths again seen in the pelvis. Visualized bowel gas unremarkable. XR/XR pelvis 1-2V IMPRESSION: 1. Right hip replacement. Hardware intact. No destructive process or osteolysis. 2. Prominent osteoarthritis left hip. 3. Mild osteitis pubis.
== END 2022-01-06 00:01 | disposition home or self-care (01) ==
LOC: HO.HOSX
PROVIDERS: Visit Provider Orthopaedic Surgery
DX: M75.51 Bursitis of right shoulder (principal); Z96.641 Presence of right artificial hip joint
CPT/HCPCS: 72170; 99212

== ENCOUNTER 2022-01-17 11:00 | Outpatient (RCR) | payer MEDICARE, SELFPAY ==
[2021-12-09 10:11] VITALS: BP 146/68; PULSE 79; O2SAT 91
--- NOTE | 2021-12-09 11:51 | MHC.PT.EP ---
[facility] [place] Office [place] Office [place] Office [address] Jimi Morrow [address] [phone] F: [phone] F: [phone] F: [phone] F: [phone] Physical Therapy Plan of Care Date of Evaluation: Date of Surgery: Diagnosis: IMPINGEMENT SYNDROME Rt SHOULDER Assessment: 81 YO FEMALE REF TO PT W Rt SH IMPINGEMENT SYNDROME. Pt HAS (+) PACEMAKER AND (+) ATRIAL FIB- SHE TAKES ELIQUIS. SHE IS Rt HAND DOMINANT. OBJECTIVELY, Pt HAS DECR POSTURAL AWARENESS INFLUENCING GH MECHANICS, TIGHT ANT SH , WEAKNESS IN POST RC/ SCAP MM, (+) NEER'S Rt, AND PAIN W ACTIVE MVMT Rt SH. FUNCTIONAL LIMITATIONS INCLUDE INABILITY TO REACH OVERHEAD OR POSTERIORLY W Rt UE, SLEEPING, LIFTING/ CARRYING, AND EXERCISING W/O Rt SH PAIN. Pt WOULD BENEFIT FROM PT TO ADDRESS HER Rt SH IMPINGEMENT, PAIN MANAGEMENT, AND DEV A PROGRESSIVE HEP/ SELF-SX MGMT PROGRAM. 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 Manual therapy to restore motion and function. Therapeutic exercise to improve strength and flexibility. Neuromuscular re-education for posture and balance. Therapeutic activities to return to functional activities of daily living. Electronically signed by: Ambreen Gonzalez,PT Please sign and return to therapist. Thank you for your referral.
--- NOTE | 2022-01-17 12:54 | MHC.PT.DC ---
[facility] [place] Office [place] Office [place] Office [address] Jimi Morrow [address] [phone] F: [phone] F: [phone] F: [phone] F: [phone] Physical Therapy Discharge Report Diagnosis: IMPINGEMENT SYNDROME Rt SHOULDER Date of Surgery: Date of Evaluation: 12/09/21 Date of Discharge: 01/17/22 Treatments to Date: 7 Cancellations to Date: 1 No Shows to Date: Discharge Status: Achieved Goals Improved Function Independent with HEP Discharge Summary: Pt HAS MADE SIGNIF PROGRESS IN PT FOR HER RIGHT SHOULDER- SHE DEMON WFL AROM, IMPROVED STRENGTH, RESUMED REGULAR ADLs- HER SPADI SCORE IMPROVED FROM 122/130 AT EVAL ON 12/09/21 TO A SCORE OF 0/130 AT D/C, 01/17/22. Pt IS MOTIVATED AND COMPLIANT W HER HEP, JOSE M APPROP SELF-CORRECT OF POSTURE, AND IS D/C THIS DATE. Electronically signed by: ADAM FRANCISCO,PT Please sign and return to therapist. Thank you for your referral.
== END 2022-01-17 12:54 | disposition home or self-care (01) ==
LOC: HO.PT 11:00
PROVIDERS: Visit Provider Orthopaedic Surgery
DX: M75.41 Impingement syndrome of right shoulder (principal)
CPT/HCPCS: 97110; 97140; 97161; 97530

== ENCOUNTER → 2022-03-03 08:44 | Outpatient (BNVA) | payer MEDICARE, SELFPAY | PROVIDERS: PCP Family Medicine; Referring Provider Family Medicine; Visit Provider Internal Medicine Cardiovascular Disease | DX: Z45.018 Encounter for adjustment and management of other part of cardiac pacemaker (principal); I48.0 Paroxysmal atrial fibrillation; I50.30 Unspecified diastolic (congestive) heart failure | CPT/HCPCS: 93005; 93280; 99202 ==

== ENCOUNTER → 2022-03-22 09:48 | Outpatient (REF) | payer MEDICARE, SELFPAY ==
--- NOTE | ~2022-03-22 | NM_ITS ---
TC- PYP Cardiac Study INDICATION: Evaluation for Cardiac Amyloidosis CLINICAL HISTORY: 81 years old Female with diastolic heart failure and atrial fibrillation TECHNIQUE: 25 mCi of Tc-99m pyrophosphate was injected intravenously. Planar images of the chest were obtained in the anterior and left lateral views at 3 hours.. SPECT-CT images of the chest were also obtained. Total DLP 83 mGy-cm COMPARISON: None FINDINGS: 1. Image Quality: Adequate 2. Semi-quantitative visual scoring of the cardiac uptake is performed as follows: 0 = absent cardiac uptake and intense bone uptake 3. H-CL Ratio if Applicable: Not applicable 4. Ancillary Finds: Mild coronary calcification noted on CT images NM/NM TC PYP cardiac amyloidosis IMPRESSION: 1. No evidence of ATTR type of cardiac amyloidosis based on this study 2. Please note that the Tc 99m PYP is more sensitive in detecting transthyretin-related cardiac amyloidosis than that of light-chain cardiac amyloidosis.
== END ==
LOC: HO.NUCMED 09:48
PROVIDERS: Visit Provider Internal Medicine Cardiovascular Disease
DX: I50.30 Unspecified diastolic (congestive) heart failure (principal)
CPT/HCPCS: 78803; A9538

== ENCOUNTER 2022-06-05 11:08 | Outpatient (REF) | payer MEDICARE, SELFPAY ==
[2022-06-05 13:06] LABS: B Type Natriuretic Peptide 214 pg/mL (<100)
[2022-06-05 13:09] LABS: Anion Gap 13 (12-20); Blood Urea Nitrogen 18 mg/dL (9-16); Calcium 9.2 mg/dL (8.4-10.2); Carbon Dioxide 30 mmol/L (22-29); Chloride 100 mmol/L (96-108); Estimated Glomerular Filt Rate 55; Glucose Random 108 mg/dL (60-115); Potassium 5.3 mmol/L (3.3-5.1); Sodium 138 mmol/L (135-145)
[2022-06-05 13:27] LABS: TSH reflex Free T4 4.13 uIU/mL (0.32-4.0)
[2022-06-05 14:41] LABS: Free T4 (Free Thyroxine) 1.17 ng/dL (0.71-1.85)
== END 2022-06-05 11:09 | disposition home or self-care (01) ==
LOC: HO.LAB 11:08
PROVIDERS: PCP Family Medicine; Visit Provider Internal Medicine Cardiovascular Disease
DX: I48.19 Other persistent atrial fibrillation (principal); I50.30 Unspecified diastolic (congestive) heart failure; Z45.018 Encounter for adjustment and management of other part of cardiac pacemaker; Z79.899 Other long term (current) drug therapy
CPT/HCPCS: 36415; 80048; 83880; 84439; 84443; 93005; 93280; 99212

== ENCOUNTER → 2022-06-21 11:55 | Day surgery (SDC) | payer MEDICARE, SELFPAY ==
[2022-06-16 11:39] VITALS: BMI 38.0
[2022-06-16 12:20] VITALS: BMI 38.0
--- NOTE | 2022-06-20 08:12 | HO.ANESPROP2 ---
HPI - Anesthesia Eval Consult details Narrative: Cx DOS for recent fall 81yo F for Cardioversion Eliquis for afib Pacer in situ for SSS PMFSH Active Problems Active Problems: All Active Problems (Updated 06/05/22 @ 11:30 by Franco Chopra MD) Persistent atrial fibrillation (Acute) Cardiac pacemaker in situ (Acute) (HFpEF) heart failure with preserved ejection fraction (Acute) Paroxysmal atrial fibrillation (Acute) Bursitis of right shoulder (Acute) Impingement syndrome of right shoulder (Acute) S/P total hip arthroplasty (Acute) Osteoarthritis of right hip (Acute) Bilateral hip joint arthritis (Acute) Past Medical History Medical History (HFpEF) heart failure with preserved ejection fraction Afib Cardiac pacemaker in situ Degenerative joint disease Hearing loss Hx of cardiac pacemaker Hypertension Obesity (BMI 30-39.9) Obstructive sleep apnea Peripheral venous insufficiency Retinal artery occlusion Sick sinus syndrome TIA (transient ischemic attack) Transient cerebral ischemia Wears dentures Wears hearing aid in both ears Family History Family history of problems with anesthesia: No Surgical History Surgical History History of cataract surgery (~2016) History of esophagogastroduodenoscopy (EGD) History of right hip replacement Hx laparoscopic cholecystectomy Hx of colonoscopy Hx of tubal ligation Status post ORIF of fracture of ankle (~1984) History of Problems with Anesthesia: No Social History Social History Are you a primary rental boats caretaker to a significant other at home: No Do you presently have visiting nurse or other home services: No Alcohol intake: never Patient Tobacco Use Status: Former Tobacco user Quit Date: 1999 Tobacco use type: Cigarette Smoked in Last 30 Days: No Use of substances other than those prescribed or required for medical reasons: No Advance Directives: Yes Advance Directives on File: Yes Advance Directives Date on File: 09/15/14 service: No Current occupational status: retired Current occupation: right handed Meds Allergies Allergy/AdvReac Type Severity Reaction Status Date / Time Seasonal Allergies Allergy Mild itching Verified 06/05/22 11:13 and sneezing Home Medications Medication Instructions Recorded Confirmed Last Taken Type duloxetine 30 mg capsule,delayed 30 mg PO DAILY 09/03/20 06/21/22 06/21/22 History release metoprolol succinate 50 mg 50 mg PO BEDTIME 09/06/20 06/16/22 01/11/21 History tablet,extended release 24 hr apixaban 5 mg tablet (Eliquis) 5 mg PO BID 10/12/20 06/21/22 06/21/22 History acetaminophen 325 mg tablet 650 mg PO Q6H PRN Pain 01/04/21 06/16/22 Unknown History (Tylenol) losartan 100 mg tablet 100 mg PO DAILY 03/03/22 06/21/22 06/21/22 History torsemide 10 mg tablet 10 mg PO DAILY 03/03/22 06/16/22 Unknown History Exam Exam Date and Time: June 20, 2022 0812 Height,Weight and Vital Signs: Height 5 ft 4 in Weight 100.698 kg Pertinent Lab Results Pertinent Lab Results: Laboratory Tests 06/05/22 12:21 Sodium 138 Potassium 5.3 H Chloride 100 Carbon Dioxide 30 H BUN 18 H Creatinine 0.98 Narrative Narrative: Cardiac Device Check 05/2022 Details: Dual-chamber Med[employer] pacemaker in place programmed in MVP mode with rate response.? Noted persistent atrial fibrillation since 05/27/2022.? Ventricular pacing thresholds are adequate and reprogrammed to enhance battery life.? Pacing lead impedance is stable. EKG 05/2022 atrial fibrillation with occasional paced ventricular complex Assessment and Plan Assessment Anesthesia Assessment: Chart Reviewed Final Anesthetic Review Family History of Problems with Anesthesia: No History of Problems with Anesthesia: No
--- NOTE | 2022-06-21 11:57 | MHC.SHP ---
Pre-Procedural Eval Section A Date of Service: 06/21/22 The patient is an INPATIENT: No Changes since office visit: Yes Patient answered all questions; No Cold of Flu in the past 2 weeks, No New Medical Problems and No Changes in Medication The History & Physical has been completed within 30 days and I have reviewed it.: Yes Section B Chief Complaint: afib Allergies: Allergies Allergy/AdvReac Type Severity Reaction Status Date / Time Seasonal Allergies Allergy Mild itching Verified 06/05/22 11:13 and sneezing Plan I have reviewed the history and physical and performed a pertinent physical examination on my patient. No changes have occurred unless specified. Time Spent With Patient Time: Total time managing care of this patient today ____ minutes.
--- NOTE | 2022-06-21 12:29 | PC.NURSE ---
BROUGHT PATIENT INTO ROOM 3 PREOP AND STATED SHE HAD FALLEN ON SUNDAY. TRIPPED AND FELL FORWARD ON HER FACE. NO LOC BUT AND EMT CAME BUT SHE REFUSED TO BE TRANSFERRED AND EVALUATED AT [facility]. LEFT LOWER LEG IS SWOLLEN TWICE THE SIZE THAN HER RIGHT LEG PURPLE IN COLOR. LARGE GASH ON KNEE WITH DRY BLOOD. BILATERAL LLOWER LIDS ARE BRUISED AND BRIDGE OF NOSE ARE BRUISED AND HER CHIN IS BRUISED. BASELINE MENTATION ALERT AND ORIENTED. LEFT SIDED PACEMAKER. KEEP NPO. LUNGS CLEAR
--- NOTE | 2022-06-21 12:34 | PC.NURSE ---
MD MEJIA EVALUATED PATIENT AND DID A MD TO MD REPORT PATIENT TO BE TRANSFERRED TO THE ED.
[2022-06-21 12:46] VITALS: BP 152/87; PULSE 74; RESP 16; TEMP 35.9; O2SAT 96
--- NOTE | 2022-06-21 12:58 | PC.NURSE ---
OFF UNIT TO ED.
== END ==
PROVIDERS: PCP Family Medicine; Visit Provider Internal Medicine Cardiovascular Disease
DX: I48.91 Unspecified atrial fibrillation (principal); Z53.09 Procedure and treatment not carried out because of other contraindication; Z95.0 Presence of cardiac pacemaker

== ENCOUNTER 2022-06-21 13:12 | Emergency (ER) | payer MEDICARE, SELFPAY ==
--- NOTE | ~2022-06-21 | XR_ITS ---
EXAMINATION: Left knee and lower leg x-ray CLINICAL INFORMATION: Trauma COMPARISON: None. TECHNIQUE: 2 views of left knee and 2 views of the left lower leg FINDINGS: Left knee: Bone alignment is normal. No acute fracture or dislocation. Old healed fracture of the proximal fibular shaft. Normal joint spaces. No joint effusion. Soft tissue swelling over the anterior lower knee and upper cedillo. Left lower leg: Bone alignment is normal. No acute fracture or dislocation. Old healed fracture of the proximal tibial shaft. Increased bone formation at the distal interosseous membrane probably related to old trauma as well. Normal ankle mortise. XR/XR tibia fibula LT 2V IMPRESSION: No acute fracture or dislocation. Soft tissue swelling over the lower anterior knee and upper cedillo.
--- NOTE | ~2022-06-21 | CT_ITS ---
EXAMINATION: CT FACIAL BONES WITHOUT CONTRAST CLINICAL INFORMATION: Pain status post trauma COMPARISON: None available. TECHNIQUE: CT facial bones with coronal and sagittal reconstructions. This CT examination was performed using dose optimization techniques as appropriate, variously including the following: *Automated exposure control *Adjustment of mA and/or kV according to patient size (this includes techniques or standardized protocols for targeted exams where dose is matched to indication/reason for exam; i.e. extremities or head) *Use of iterative reconstruction technique DLP: 330 mGy-cm FINDINGS: No acute facial bone fractures identified. The visualized paranasal sinuses are well aerated without air-fluid levels. Pterygoid plates intact. Temporomandibular joints unremarkable. No intraconal abnormality in the orbits is seen. Ostiomeatal complexes are patent. There is mild deviation of a partially calcified nasal septum to the left. There is multilevel degenerative change within the visualized cervical spine. CT/CT facial bones wo IV con IMPRESSION: No acute facial bone fracture.
--- NOTE | ~2022-06-21 | XR_ITS ---
EXAMINATION: Left knee and lower leg x-ray CLINICAL INFORMATION: Trauma COMPARISON: None. TECHNIQUE: 2 views of left knee and 2 views of the left lower leg FINDINGS: Left knee: Bone alignment is normal. No acute fracture or dislocation. Old healed fracture of the proximal fibular shaft. Normal joint spaces. No joint effusion. Soft tissue swelling over the anterior lower knee and upper cedillo. Left lower leg: Bone alignment is normal. No acute fracture or dislocation. Old healed fracture of the proximal tibial shaft. Increased bone formation at the distal interosseous membrane probably related to old trauma as well. Normal ankle mortise. XR/XR knee LT 2V IMPRESSION: No acute fracture or dislocation. Soft tissue swelling over the lower anterior knee and upper cedillo.
--- NOTE | ~2022-06-21 | CT_ITS ---
EXAMINATION: CT HEAD WITHOUT CONTRAST CLINICAL INFORMATION: Pain status post trauma COMPARISON: May 09, 2019 TECHNIQUE: Contiguous axial imaging was performed from the skull base to vertex without intravenous administration of contrast. This CT examination was performed using dose optimization techniques as appropriate, variously including the following: *Automated exposure control *Adjustment of mA and/or kV according to patient size (this includes techniques or standardized protocols for targeted exams where dose is matched to indication/reason for exam; i.e. extremities or head) *Use of iterative reconstruction technique DLP: 521 mGy-cm FINDINGS: No intracranial hemorrhage is identified. No significant mass effect or midline structure shift is seen. No abnormal extra-axial fluid collection is seen. There is prominence of the ventricles, sulci, and cisterns which is stable compared to previous study of May 09, 2019. There is periventricular white matter low density again seen consistent with microangiopathy. The swanson-white matter interface is maintained. The calvarium appears intact. Visualized paranasal sinuses and mastoid air cells unremarkable. No significant temporomandibular joint abnormality is seen. CT/CT head/brain wo IV con IMPRESSION: No acute intracranial pathology. Changes consistent with microangiopathy.
[2022-06-21 13:14] VITALS: BP 159/80; PULSE 84; RESP 16; TEMP 36.6; O2SAT 97; BMI 40.1
--- NOTE | 2022-06-21 13:26 | ED.FALL ---
HPI - Fall General Chief Complaint: Fall Stated Complaint: From short stay Time Seen by Provider: 06/21/22 13:14 Source: patient Limitations: no limitations History of Present Illness HPI Narrative: Patient states she had a trip and fall on Sunday, 5 days ago. She was out side walking and tripped on a [place] even the sidewalk. Any pre fall symptoms. She in left knee and her face. No loss of consciousness. Today she went to the cardiology office for a follow-up for atrial fibrillation and a center to the emergency department for workup because she has a history of atrial fibrillation and is on Eliquis for this. Patient denies headaches or weakness. She does describe left knee and leg pain with significant amount of ecchymosis. Small chip left upper incisor tooth. No other dental injuries. She is able to eat and drink without difficulty. Some nasal swelling and ecchymosis and tenderness to palpation but no deformity. Related Data Home Medications Medication Instructions Recorded Confirmed duloxetine 30 mg capsule,delayed 30 mg PO DAILY 09/03/20 06/21/22 release metoprolol succinate 50 mg 50 mg PO BEDTIME 09/06/20 06/16/22 tablet,extended release 24 hr apixaban 5 mg tablet (Eliquis) 5 mg PO BID 10/12/20 06/21/22 acetaminophen 325 mg tablet 650 mg PO Q6H PRN Pain 01/04/21 06/16/22 (Tylenol) losartan 100 mg tablet 100 mg PO DAILY 03/03/22 06/21/22 torsemide 10 mg tablet 10 mg PO DAILY 03/03/22 06/16/22 Previous Rx's Medication Instructions Recorded amiodarone 400 mg tablet 400 mg PO BID #180 tabs 06/19/22 Allergies Allergy/AdvReac Type Severity Reaction Status Date / Time Seasonal Allergies Allergy Mild itching Verified 06/05/22 11:13 and sneezing Review of Systems Constitutional: Comments: No recent illness Eyes: Comments: No vision changes ENT: Comments: Nose and facial pain secondary to injury. Cardiovascular: Comments: No chest pain or palpitations. History of atrial fibrillation which is chronic. Patient denies being able to tell when she is in atrial fibrillation. Respiratory: Comments: No dyspnea or cough Gastrointestinal: Comments: No abdominal pain Musculoskeletal: Comments: Left knee and cedillo pain. No other musculoskeletal complaints Integumentary/Breasts: Comments: Ecchymosis to face into left leg Neurologic: Comments: No focal weakness [facility] Past Medical History Medical History (HFpEF) heart failure with preserved ejection fraction Afib Cardiac pacemaker in situ Degenerative joint disease Hearing loss Hx of cardiac pacemaker Hypertension Obesity (BMI 30-39.9) Obstructive sleep apnea Peripheral venous insufficiency Retinal artery occlusion Sick sinus syndrome TIA (transient ischemic attack) Transient cerebral ischemia Wears dentures Wears hearing aid in both ears Surgical History History of cataract surgery (~2016) History of esophagogastroduodenoscopy (EGD) History of right hip replacement Hx laparoscopic cholecystectomy Hx of colonoscopy Hx of tubal ligation Status post ORIF of fracture of ankle (~1984) Social History Social History Are you a primary physician locums urgent care to a significant other at home: No Do you presently have visiting nurse or other home services: No Alcohol intake: never Patient Tobacco Use Status: Former Tobacco user Quit Date: 1999 Tobacco use type: Cigarette Smoked in Last 30 Days: No Use of substances other than those prescribed or required for medical reasons: No Advance Directives: Yes Advance Directives on File: Yes Advance Directives Date on File: 09/15/14 service: No Current occupational status: retired Current occupation: right handed Physical Exam Vital Signs: Vital Signs: Last Vital Signs Temp 97.8 F 06/21/22 13:14 Pulse 84 06/21/22 13:14 Resp 16 06/21/22 13:14 BP 159/80 H 06/21/22 13:14 Pulse Ox 97 06/21/22 13:14 O2 Del Method Room Air 06/21/22 13:14 BMI result Body Mass Index 40.1 Const: Other: Awake and alert in no acute distress HEENT: Other: Patient with ecchymosis to the nose, upper lip, chin. No obvious bony deformities noted. No septal hematoma. Left upper incisor with small 1-2 mm chip. No pulp exposure. Other dentition is intact. Chest: Other: Not tender Resp: Other: Clear and equal bilaterally without respiratory distress Cardio: Other: Irregularly irregular with a rate in the 70s. No murmurs rubs or gallop GI: Other: Soft, nontender, nondistended Back/Spine/Pelvis: Other: Nontender CT L and S spine Skin: Other: Warm pink and dry. Ecchymosis as noted above on HEENT exam. There is also significant in diffuse ecchymosis to the left knee and left cedillo, circumferentially. No significantly increased warmth or erythema or evidence for dissection however. Neuro: Other: Nonfocal neuro exam Extrem: Other: Upper extremities are normal. Right lower extremity normal Left lower extremity with significant ecchymosis circumferentially from knee down to ankle. Distal circulation sensation motor is intact however. Foot without ecchymosis. Capillary refill normal. Patient is able to bear weight without difficulty despite these findings Medical Decision Making Medical Decision Making MDM Narrative: Facial contusions Small dental avulsion without pulp exposure Rule out intracranial hemorrhage with risk factor of anticoagulation on Eliquis. No evidence of spinal injury Left leg with significant ecchymosis. Rule out fracture although ecchymosis could certainly be accounted for by soft tissue injury on Eliquis. Await x-rays and CT scans 16:00 Scan of brain and face negative. X-rays of knee and tib-fib negative Lab work all reassuring. Results conveyed to patient. 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 I discussed possibility for rehab, but patient states she has been ambulating without difficulty and her states she has gone shopping without difficulty. Therefore she is stable for discharge home to continue current plan. The cardiology office will call her to reschedule her procedure Lab Data 06/21/22 14:24 06/21/22 14:24 Labs: Lab Results 06/21/22 06/21/22 Range/Units 14:24 14:24 WBC 6.2 (4.8-10.8) X10*3/uL RBC 4.09 L D (4.20-5.50) X10*6/uL Hgb 13.0 (12.0-16.0) g/dl Hct 38.7 (37.0-47.0) % MCV 94.6 (80.0-98.0) fL MCH 31.8 (27.0-33.0) pg MCHC 33.6 (31.0-35.0) g/dl RDW 13.5 (11.0-16.0) % Plt Count 221 (160-400) X10*3/uL MPV 9.7 (9.4-12.3) fL Immature Gran % (Auto) 0.5 H (0.0-0.4) % Neut % (Auto) 64.5 (45-73) % Lymph % (Auto) 22.0 (20-40) % [place] % (Auto) 10.6 (2-11) % Eos % (Auto) 1.9 (0-4) % Baso % (Auto) 0.5 (0-2) % Lymph # (Auto) 1.4 (1.2-4.9) X10*3/uL [place] # (Auto) 0.7 (0.1-1.2) X10*3/uL Eos # (Auto) 0.1 (0.0-0.4) X10*3/uL Baso # (Auto) 0.0 (0.0-0.2) X10*3/uL Abs Immat Gran (auto) 0.03 (0.00-0.03) X10*3/uL Absolute Neuts (auto) 4.0 (2.0-8.3) x10*3/uL Absolute Nucleated RBC 0.000 (0.0-0.012) X10*3/uL Nucleated RBC % (auto) 0.0 (0.0-0.2) /100WBC Sodium 139 (135-145) mmol/L Potassium 4.8 (3.3-5.1) mmol/L Chloride 104 (96-108) mmol/L Carbon Dioxide 25 (22-29) mmol/L Anion Gap 15 (12-20) BUN 13 (9-16) mg/dL Creatinine 0.81 (0.5-1.4) mg/dL Estim Creat Clear Calc 65.8 Estimated GFR > 60 Random Glucose 116 H (60-115) mg/dL Calcium 8.8 (8.4-10.2) mg/dL Total Bilirubin 1.2 H (0.0-1.0) mg/dL AST 23 (5-31) U/L ALT 17 (0-31) U/L Alkaline Phosphatase 112 (39-117) U/L Total Protein 5.9 L (6.5-8.0) g/dL Albumin 3.5 (3.5-5.0) g/dL Discharge Plan Discharge Clinical Impression: Contusion of face, Contusion of knee Patient Disposition: Home, Self-Care Instructions: Facial Contusion (ED), Contusion in Adults (ED) Additional Instructions: The cardiology office will call you to reschedule the procedure. In the meantime continue taking current medications including Eliquis. Return if worse in any way. Acetaminophen, Tylenol for pain as directed Prescriptions: No Action amiodarone 400 mg tablet 400 mg PO BID Qty: 180 2RF acetaminophen [Tylenol] 325 mg Tablet 650 mg PO Q6H PRN (Reason: Pain) duloxetine 30 mg capsule,delayed release(DR/EC) 30 mg PO DAILY metoprolol succinate 50 mg tablet extended release 24 hr 50 mg PO BEDTIME Eliquis 5 mg tablet 5 mg PO BID losartan 100 mg tablet 100 mg PO DAILY torsemide 10 mg tablet 10 mg PO DAILY
--- NOTE | 2022-06-21 13:33 | PC.NURSE ---
Patient brought down by OR staff for evaluation post fall. Patient tripped and fell on Sunday and refused to be seen at an ED at that time. Bruising noted to chin and nose with the nose being tender to touch; Bruising and swelling noted to left leg with a healing abrasion noted to left knee.
[2022-06-21 14:29] LABS: MANUAL DIFF FLAG NO
[2022-06-21 14:30] LABS: Basophils Percent Auto 0.5 % (0-2); Eosinophils Absolute Auto 0.1 X10*3/uL (0.0-0.4); Eosinophils Percent Auto 1.9 % (0-4); Hematocrit 38.7 % (37.0-47.0); Imm Gran Abs Auto 0.03 X10*3/uL (0.00-0.03); Imm Gran Pct Auto 0.5 % (0.0-0.4); Lymphocytes Absolute Auto 1.4 X10*3/uL (1.2-4.9); Mean Corpuscular HGB Conc 33.6 g/dl (31.0-35.0); Mean Corpuscular Hemoglobin 31.8 pg (27.0-33.0); Mean Corpuscular Volume 94.6 fL (80.0-98.0); Mean Platelet Volume 9.7 fL (9.4-12.3); Monocytes Absolute Auto 0.7 X10*3/uL (0.1-1.2); Monocytes Percent Auto 10.6 % (2-11); Neutrophils Percent Auto 64.5 % (45-73); Platelet Count 221 X10*3/uL (160-400); Red Blood Count 4.09 X10*6/uL (4.20-5.50); Red Cell Distribution Width 13.5 % (11.0-16.0); White Blood Count 6.2 X10*3/uL (4.8-10.8)
[2022-06-21 15:12] LABS: Anion Gap 15 (12-20)
[2022-06-21 15:19] LABS: Alanine Aminotransferase 17 U/L (0-31); Albumin Level 3.5 g/dL (3.5-5.0); Alkaline Phosphatase 112 U/L (39-117); Aspartate Amino Transferase 23 U/L (5-31); Bilirubin Total 1.2 mg/dL (0.0-1.0); Blood Urea Nitrogen 13 mg/dL (9-16); Calcium 8.8 mg/dL (8.4-10.2); Carbon Dioxide 25 mmol/L (22-29); Chloride 104 mmol/L (96-108); Creatinine Clr Calc Pharmacy 65.8; Estimated Glomerular Filt Rate > 60; Glucose Random 116 mg/dL (60-115); Potassium 4.8 mmol/L (3.3-5.1); Sodium 139 mmol/L (135-145); Total Protein 5.9 g/dL (6.5-8.0)
[2022-06-21 16:00] VITALS: BP 170/86; PULSE 90; RESP 16; TEMP 36.6; O2SAT 98
--- NOTE | 2022-06-21 16:04 | MHC.EDTECH ---
this pct assumed care of pt at 1500 ,pt vitals sign taken ,pt walk to bathroom and back to bed with her at her side .
[2022-06-21] MEDS: Acetaminophen 325 MG TABLET 650 MG PO (16:16)
== END 2022-06-21 16:21 | disposition home or self-care (01) ==
PROVIDERS: Emergency Provider Emergency Medicine
DX: S80.02XA Contusion of left knee, initial encounter (principal); S00.532A Contusion of oral cavity, initial encounter; W18.39XA Other fall on same level, initial encounter; Y93.01 Activity, walking, marching and hiking; Y92.9 Unspecified place or not applicable; Y99.9 Unspecified external cause status; I48.91 Unspecified atrial fibrillation; Z79.01 Long term (current) use of anticoagulants
CPT/HCPCS: 36415; 70450; 70486; 73560; 73590; 80053; 85025; 99284

== ENCOUNTER 2022-07-05 13:56 | Outpatient (REF) | payer MEDICARE, SELFPAY | END 2022-07-05 13:57 | disposition home or self-care (01) | LOC: HO.LNP 13:56 | PROVIDERS: PCP Family Medicine; Visit Provider Internal Medicine Cardiovascular Disease | DX: I48.19 Other persistent atrial fibrillation (principal); I50.30 Unspecified diastolic (congestive) heart failure; L02.91 Cutaneous abscess, unspecified; S81.802A Unspecified open wound, left lower leg, initial encounter; Z95.0 Presence of cardiac pacemaker; Z79.899 Other long term (current) drug therapy | CPT/HCPCS: 87070; 87077; 87186; 87205; 93005; 93280; 99212 ==

== ENCOUNTER → 2022-07-18 10:18 | Outpatient (BNVA) | payer MEDICARE, SELFPAY | PROVIDERS: PCP Family Medicine; Referring Provider Family Medicine; Visit Provider Physician Assistant Surgical | DX: S81.002D Unspecified open wound, left knee, subsequent encounter (principal) | CPT/HCPCS: 99202 ==

== ENCOUNTER → 2022-07-19 12:25 | Day surgery (SDC) | payer MEDICARE, SELFPAY ==
[2022-07-17 09:32] VITALS: BMI 39.0
--- NOTE | 2022-07-18 08:22 | HO.ANESPROP2 ---
HPI - Anesthesia Eval Consult details Narrative: 81yo F for Cardioversion Eliquis for afib Pacer in situ PMFSH Active Problems Active Problems: All Active Problems (Updated 07/05/22 @ 15:10 by Gonzalez Pate RN) Abscess (Acute) Persistent atrial fibrillation (Acute) Cardiac pacemaker in situ (Acute) (HFpEF) heart failure with preserved ejection fraction (Acute) Paroxysmal atrial fibrillation (Acute) Bursitis of right shoulder (Acute) Impingement syndrome of right shoulder (Acute) S/P total hip arthroplasty (Acute) Osteoarthritis of right hip (Acute) Bilateral hip joint arthritis (Acute) Past Medical History Medical History (HFpEF) heart failure with preserved ejection fraction Afib Cardiac pacemaker in situ Degenerative joint disease Hearing loss Hx of cardiac pacemaker Hypertension Obesity (BMI 30-39.9) Obstructive sleep apnea Peripheral venous insufficiency Retinal artery occlusion Sick sinus syndrome TIA (transient ischemic attack) Transient cerebral ischemia Wears dentures Wears hearing aid in both ears Family History Family history of problems with anesthesia: No Surgical History Surgical History History of cataract surgery (~2016) History of esophagogastroduodenoscopy (EGD) History of right hip replacement Hx laparoscopic cholecystectomy Hx of colonoscopy Hx of tubal ligation Status post ORIF of fracture of ankle (~1984) History of Problems with Anesthesia: No Social History Social History Are you a primary resident care spec to a significant other at home: No Do you presently have visiting nurse or other home services: No Alcohol intake: never Patient Tobacco Use Status: Former Tobacco user Quit Date: 1999 Tobacco use type: Cigarette Advance Directives Date on File: 09/15/14 service: No Current occupational status: retired Current occupation: right handed Meds Allergies Allergy/AdvReac Type Severity Reaction Status Date / Time Seasonal Allergies Allergy Mild itching Verified 07/05/22 14:26 and sneezing Home Medications Medication Instructions Recorded Confirmed Last Taken Type duloxetine 30 mg capsule,delayed 30 mg PO DAILY 09/03/20 07/17/22 06/21/22 History release metoprolol succinate 50 mg 50 mg PO BEDTIME 09/06/20 07/17/22 01/11/21 History tablet,extended release 24 hr apixaban 5 mg tablet (Eliquis) 5 mg PO BID 10/12/20 07/17/22 06/21/22 History acetaminophen 325 mg tablet 650 mg PO Q6H PRN Pain 01/04/21 07/17/22 Unknown History (Tylenol) losartan 100 mg tablet 100 mg PO DAILY 03/03/22 07/17/22 06/21/22 History torsemide 10 mg tablet 10 mg PO DAILY 03/03/22 07/17/22 Unknown History Exam Exam Date and Time: July 18, 202222 Height,Weight and Vital Signs: Height 5 ft 4 in Weight 102.965 kg Narrative Narrative: Cardiac Device Check 06/2022 Details: Dual-chamber Medtronic pacemaker in place.? Patient in persistent atrial flutter fibrillation.? Battery life is excellent.? Pacing lead impedance is stable.? Mortise still in MVP mode with rate response. EKG 06/2022 Details: EKG shows atrial flutter with intermittent ventricular pacing with variable conduction Assessment and Plan Assessment Anesthesia Assessment: Chart Reviewed Final Anesthetic Review Family History of Problems with Anesthesia: No History of Problems with Anesthesia: No
--- NOTE | 2022-07-19 11:17 | MHC.SHP ---
Pre-Procedural Eval Section A Date of Service: 07/19/22 The patient is an INPATIENT: No Changes since office visit: Yes Changes in Medication and Yes Patient answered all questions; No Cold of Flu in the past 2 weeks and No New Medical Problems The History & Physical has been completed within 30 days and I have reviewed it.: Yes Section B Chief Complaint: Other persistent atrial fibrillation Allergies: Allergies Allergy/AdvReac Type Severity Reaction Status Date / Time Seasonal Allergies Allergy Mild itching Verified 07/18/22 11:00 and sneezing Plan I have reviewed the history and physical and performed a pertinent physical examination on my patient. No changes have occurred unless specified. Time Spent With Patient Time: Total time managing care of this patient today ____ minutes.
[2022-07-19 13:16] VITALS: BP 146/73; PULSE 79; RESP 18; TEMP 36.1; O2SAT 95
--- NOTE | 2022-07-19 13:20 | HO.ANESPROP2 ---
HPI - Anesthesia Eval Consult details Narrative: for cardioversion PMFSH Active Problems Active Problems: All Active Problems (Updated 07/19/22 @ 12:52 by Angelica Mosquera, RN) Bilateral hip joint arthritis (Acute) Osteoarthritis of right hip (Acute) S/P total hip arthroplasty (Acute) Impingement syndrome of right shoulder (Acute) Bursitis of right shoulder (Acute) Paroxysmal atrial fibrillation (Acute) Persistent atrial fibrillation (Acute) Abscess (Acute) Wound of left leg (Acute) Cardiac pacemaker in situ (Acute) (HFpEF) heart failure with preserved ejection fraction (Acute) Past Medical History Medical History (HFpEF) heart failure with preserved ejection fraction Afib Arthritis Cardiac pacemaker in situ Degenerative joint disease Hearing loss Hx of cardiac pacemaker Hypertension Obesity (BMI 30-39.9) Obstructive sleep apnea Peripheral venous insufficiency Retinal artery occlusion Sick sinus syndrome TIA (transient ischemic attack) Transient cerebral ischemia Wears dentures Wears hearing aid in both ears Family History Family history of problems with anesthesia: No Surgical History Surgical History History of cataract surgery (~2016) History of esophagogastroduodenoscopy (EGD) History of right hip replacement Hx laparoscopic cholecystectomy Hx of colonoscopy Hx of tubal ligation Status post ORIF of fracture of ankle (~1984) History of Problems with Anesthesia: No Social History Social History Are you a primary care program resident to a significant other at home: No Do you presently have visiting nurse or other home services: No Alcohol intake: never Patient Tobacco Use Status: Former Tobacco user Quit Date: 25 yrs ago Tobacco use type: Cigarette Use of substances other than those prescribed or required for medical reasons: No Are you DNR?: No Advance Directives: Yes Advance Directives on File: Yes Advance Directives Date on File: 09/15/14 service: No Current occupational status: retired Current occupation: right handed Meds Allergies Allergy/AdvReac Type Severity Reaction Status Date / Time Seasonal Allergies Allergy Mild itching Verified 07/18/22 11:00 and sneezing Active Medications: Current Medications Lactated Ringer's (Lr) 1,000 mls @ 50 mls/hr IVCONT .Q20H [place] Sodium Chloride (0.9 % Sodium Chloride Flush 3 Ml Syringe) 3 ml IVFLUSH QSHIFT [facility] Home Medications Medication Instructions Recorded Confirmed Last Taken Type duloxetine 30 mg capsule,delayed 30 mg PO DAILY 09/03/20 07/19/22 07/19/22 07:00 History release metoprolol succinate 50 mg 50 mg PO BEDTIME 09/06/20 07/19/22 07/19/22 07:00 History tablet,extended release 24 hr apixaban 5 mg tablet (Eliquis) 5 mg PO BID 10/12/20 07/19/22 07/19/22 07:00 History acetaminophen 325 mg tablet 650 mg PO Q6H PRN Pain 01/04/21 07/19/22 Unknown History (Tylenol) losartan 100 mg tablet 100 mg PO DAILY 03/03/22 07/19/22 07/19/22 07:00 History torsemide 10 mg tablet 10 mg PO DAILY 03/03/22 07/19/22 07/19/22 07:00 History Exam Exam Date and Time: July 19, 2022 1320 Height,Weight and Vital Signs: Height 5 ft 4 in Weight 102.965 kg Airway Mallampati Class: II TM Dist: <=3cm Neck ROM: Full Denture: Lower Heart: ok. Afib. Lungs: ok Assessment and Plan Assessment Anesthesia Assessment: Anesthesia Plan Discussed and Chart Reviewed Final Anesthetic Review Family History of Problems with Anesthesia: No History of Problems with Anesthesia: No NPO: Yes ASA Class: IV Final Preanesthetic Review: No Changes in Pt Med Stat, Meds/Allgs Chart Reviewed, Consent Obtained/Reviewed and Anes Risks/Benef Reviewed Patient Risk: Intermediate Procedure Risk: Intermediate Anesthetic Plan Anesthetic Plan: MAC: and Agree w/ Assess. and Plan Disposition: Standard PACU
[2022-07-19] MEDS: Lactated Ringers 1,000 ML 50 ML IVCONT (13:46)
--- NOTE | 2022-07-19 14:42 | ECG_ITS ---
Test Reason : preop Blood Pressure : / mmHG Vent. Rate : 061 BPM Atrial Rate : 061 BPM P-R Int : 198 ms QRS Dur : 098 ms QT Int : 496 ms P-R-T Axes : 000 -19 038 degrees QTc Int : 499 ms Normal sinus rhythm Prolonged QT Abnormal ECG When compared with ECG of 09-MAY-2019 20:27, Sinus rhythm has replaced Electronic atrial pacemaker Referred By: Jose Neff Electronically Signed By:BRI HOFF
== END ==
PROVIDERS: PCP Family Medicine; Visit Provider Internal Medicine Cardiovascular Disease
DX: I48.19 Other persistent atrial fibrillation (principal); Z79.01 Long term (current) use of anticoagulants; Z53.8 Procedure and treatment not carried out for other reasons
CPT/HCPCS: 93005

== ENCOUNTER → 2022-07-24 09:13 | Outpatient (BNVA) | payer MEDICARE, SELFPAY | PROVIDERS: PCP Family Medicine; Referring Provider Family Medicine; Visit Provider Surgery | DX: Z48.00 Encounter for change or removal of nonsurgical wound dressing (principal) | CPT/HCPCS: 99211 ==

== ENCOUNTER 2022-07-26 08:56 | Outpatient (RCR) | payer MEDICARE, SELFPAY | END 2022-11-03 10:37 | disposition home or self-care (01) | LOC: HO.WCC 08:56 | PROVIDERS: PCP Family Medicine; Visit Provider Surgery | DX: S81.012A Laceration without foreign body, left knee, initial encounter (principal); I87.322 Chronic venous hypertension (idiopathic) with inflammation of left lower extremity; Z79.01 Long term (current) use of anticoagulants; Z79.84 Long term (current) use of oral hypoglycemic drugs; Z79.899 Other long term (current) drug therapy | CPT/HCPCS: 11042; 11043; 15271; 15275; 99212; Q4187 ==

== ENCOUNTER → 2022-08-03 09:40 | Outpatient (BNVA) | payer MEDICARE, SELFPAY | PROVIDERS: PCP Family Medicine; Referring Provider Family Medicine; Visit Provider Internal Medicine Cardiovascular Disease | DX: I48.91 Unspecified atrial fibrillation (principal) | CPT/HCPCS: 93005 ==

== ENCOUNTER 2022-08-16 10:59 | Outpatient (REF) | payer MEDICARE, SELFPAY ==
[2022-08-16 14:02] LABS: Anion Gap 13 (12-20); Blood Urea Nitrogen 16 mg/dL (9-16); Calcium 9.3 mg/dL (8.4-10.2); Carbon Dioxide 29 mmol/L (22-29); Chloride 104 mmol/L (96-108); Estimated Glomerular Filt Rate > 60; Glucose Random 91 mg/dL (60-115); Sodium 141 mmol/L (135-145)
[2022-08-16 14:04] LABS: B Type Natriuretic Peptide 441 pg/mL (<100)
== END 2022-08-16 11:00 | disposition home or self-care (01) ==
LOC: HO.LAB 10:59
PROVIDERS: PCP Family Medicine; Visit Provider Internal Medicine Cardiovascular Disease
DX: I50.30 Unspecified diastolic (congestive) heart failure (principal)
CPT/HCPCS: 36415; 80048; 83880; 93005; 93280; 99212

== ENCOUNTER → 2022-08-18 09:08 | Outpatient (BNVA) | payer MEDICARE, SELFPAY | PROVIDERS: PCP Family Medicine; Visit Provider Surgery | DX: S81.802D Unspecified open wound, left lower leg, subsequent encounter (principal) | CPT/HCPCS: 99212 ==

== ENCOUNTER → 2022-10-07 23:59 | Outpatient (BNV) | payer MEDICARE, SELFPAY ==
--- NOTE | 2022-10-11 14:46 | MHC.OFFVIS ---
Intake Intake Visit Reasons: Remote Device Check- Medtronic Allergies Seasonal Allergies Allergy (Mild, Verified 08/18/22 09:25) itching and sneezing PFS Medical History (Updated 09/05/22 @ 09:17 by Angelica Mosquera RN) (HFpEF) heart failure with preserved ejection fraction Arthritis Cardiac pacemaker in situ Degenerative joint disease Hearing loss History of cardioversion Hx of cardiac pacemaker Hypertension Obesity (BMI 30-39.9) Obstructive sleep apnea Peripheral venous insufficiency Persistent atrial fibrillation Retinal artery occlusion Sick sinus syndrome TIA (transient ischemic attack) Transient cerebral ischemia Wears dentures Wears hearing aid in both ears Surgical History History of cataract surgery (~2016) History of esophagogastroduodenoscopy (EGD) History of right hip replacement Hx laparoscopic cholecystectomy Hx of colonoscopy Hx of tubal ligation Status post ORIF of fracture of ankle (~1984) Social History Are you a primary live in caregiver to a significant other at home: No Do you presently have visiting nurse or other home services: No Alcohol intake: never Patient Tobacco Use Status: Former Tobacco user Quit Date: 25 yrs ago Tobacco use type: Cigarette Advance Directives Date on File: 09/15/14 service: No Current occupational status: retired Current occupation: right handed Office Procedures Cardiac Device Check Cardiac Device Check Details: Remote pacemaker report generated 10/07/2022. Pacemaker function is adequate. Overall burden of atrial fibrillation 54% [id number] Cardiac Device Interrogation, pacemaker Procedure code (CPT) selection complete Coding Level of Care Code Procedure Only Diagnoses CPT Codes Cardiac Device Check - Cardiac Device 12: [id number] Cardiac Device Interrogation, pacemaker ([id number])
== END ==
PROVIDERS: PCP Family Medicine; Visit Provider Internal Medicine Cardiovascular Disease
DX: I48.0 Paroxysmal atrial fibrillation (principal); Z95.0 Presence of cardiac pacemaker
CPT/HCPCS: 93294

== ENCOUNTER 2022-11-20 09:23 | Outpatient (AMB) | payer MEDICARE, SELFPAY ==
[2022-11-20 09:30] VITALS: BP 124/72; PULSE 77; BMI 37.5
--- NOTE | 2022-11-20 09:30 | MHC.OFFVIS ---
Intake Vital Signs 11/20/22 09:30 Height 5 ft 4 in Weight 218 lb 4.122 oz BMI 37.5 BP 124/72 Blood Pressure Location Lt radial Position Sitting Pulse 77 Intake Visit Reasons: 3 mth f/up Intake Note: 3 month follow-up with ekg and Medtroinc feeling good Resistance Brazer Required: No Allergies Seasonal Allergies Allergy (Mild, Verified 08/18/22 09:25) itching and sneezing Medication List - Last Reconciled 11/20/22 by Franco Chopra MD acetaminophen (Tylenol) 650 mg PO Q6H PRN amiodarone 200 mg PO DAILY apixaban (Eliquis) 5 mg PO BID duloxetine 30 mg PO DAILY empagliflozin (Jardiance) 10 mg PO DAILY losartan 100 mg PO DAILY metoprolol succinate ER 50 mg PO BEDTIME torsemide 10 mg PO DAILY HPI HPI Comments History of Present Illness Details Yina comes for follow-up. She has not noticed any significant change in her symptoms. Continues to have exertional shortness of breath NYHA class 2. Denies any orthopnea, PND, leg swelling. She complains of increased diaphoresis and sweatiness. Denies any palpitation irregular heartbeat. No lightheadedness, syncope. Takes all her medications. [facility]LY [facility] Medical History History of cardioversion Arthritis Persistent atrial fibrillation Sick sinus syndrome Cardiac pacemaker in situ (HFpEF) heart failure with preserved ejection fraction Hypertension TIA (transient ischemic attack) Wears dentures Wears hearing aid in both ears Hx of cardiac pacemaker Degenerative joint disease Peripheral venous insufficiency Transient cerebral ischemia Hearing loss Retinal artery occlusion Obstructive sleep apnea Obesity (BMI 30-39.9) Surgical History History of right hip replacement Hx of tubal ligation Hx laparoscopic cholecystectomy History of esophagogastroduodenoscopy (EGD) Hx of colonoscopy Status post ORIF of fracture of ankle (~1984) History of cataract surgery (~2016) Social History Are you a primary inpatient care manager rn to a significant other at home: No Do you presently have visiting nurse or other home services: No Alcohol intake: never Patient Tobacco Use Status: Former Tobacco user Quit Date: 25 yrs ago Tobacco use type: Cigarette Advance Directives Date on File: 09/15/14 service: No Current occupational status: retired Current occupation: right handed Review of Systems Const Denies chills, Denies fatigue, Denies fever(s), Denies frequent falls, Denies weakness, Denies weight gain and Denies weight loss ENT Denies dizziness Card Denies chest pain, Denies leg edema, Denies lightheadedness, Denies palpitations, Denies dyspnea, Denies dyspnea on exertion, Denies orthopnea and Denies other (loss of consciousness) Resp Denies cough, Denies dyspnea and Denies dyspnea on exertion GI Denies hematochezia and Denies change in stool character Musc Denies abnormal gait, Denies muscle weakness, Denies numbness, Denies radiating pain into limb and Denies tingling Neuro Denies Abnormal speech present, Denies abnormal gait, Denies dizziness, Denies frequent falls, Denies numbness, Denies tingling and Denies weakness Endo Denies fatigue and Denies palpitations Physical Exam Vital Signs: Last Vital Signs Pulse 77 11/20/22 09:30 BP 124/72 11/20/22 09:30 BMI result Body Mass Index 37.5 Const General: cooperative, comfortable, no acute distress, alert, awake, Physically active and well groomed Nutritional Appearance: obese Orientation/consciousness: patient oriented x3 Limitations: no limitations HEENT Head: Yes normocephalic and Yes atraumatic Neck Neck: Yes trachea midline, Yes supple and Yes no JVD Resp Effort & Inspection: normal respiratory effort Auscultation: clear to auscultation bilaterally Cardio Jugular venous distension: no JVD Palpation: normal PMI Rhythm: abnormal rhythm irregularly irregular Heart sounds: S1 normal heart sound present, S2 normal heart sound present, no click, no gallops, no murmurs and no rubs GI Auscultation: normal bowel sounds Skin General skin exam: no rashes or lesions noted Neuro General: patient oriented x3 and no focal motor deficits Speech: No Abnormal speech present Extrem Other: There is a large open wound on the anterior aspect of the upper part of the left leg with fall smelling discharge with pus oozing out with blood-tinged secretion with necrotic skin flap General: No clubbing, No cyanosis and Yes edema (Left lower extremity swelling below knee) Psych Appearance: grossly normal Office Procedures Cardiac Device Check Cardiac Device Check Details: Dual-chamber Medtronic pacemaker in place. About 53% time patient is in atrial fibrillation. Intermittently. Rest of the time patient is paced in the atrium at 43% of time. Minimal ventricular pacing noted. Battery life is adequate at 80 years. Atrial and ventricular pacing thresholds adequate. Pacing lead impedance is stable. [id number] Cardiac Device Check, pacemaker dual lead Procedure code (CPT) selection complete EKG Details: EKG shows atrially paced rhythm with ventricle sensed with incomplete right bundle-branch block and left axis deviation 54649-[id number], Complete Assessment & Plan Assessment & Plan (1) Paroxysmal atrial fibrillation: Code(s): I48.0 - Paroxysmal atrial fibrillation Plan: Paroxysmal atrial fibrillation although increasing burden of overall atrial fibrillation with total burden of 53%. There is no reduction total burden. At this point time she remains asymptomatic and no progressive heart failure syndrome with higher burden of atrial fibrillation. Therefore in 3 months if she continues to have similar burden of atrial fibrillation would probably discontinue amiodarone therapy and proceed with rate control approach to reduce long-term amiodarone toxicity. Will check TSH today given her systemic symptoms of increased sweatiness. Continue full oral anticoagulation, currently on Eliquis 5 mg b.i.d.. Will check renal function test today. (2) (HFpEF) heart failure with preserved ejection fraction: Code(s): I50.30 - Unspecified diastolic (congestive) heart failure Plan: Heart failure preserved ejection fraction, clinically euvolemic and well compensated current torsemide and Jardiance therapy. Continue aggressive blood pressure control. Importance of regular physical activity and weight loss program was discussed. Discussed about daily weight monitoring avoidance of salt loading and taking additional diuretics as need be. (3) Cardiac pacemaker in situ: Comment: Medtronic dual-chamber pacemaker Code(s): Z95.0 - Presence of cardiac pacemaker Plan: Cardiac pacemaker in-situ with patient when not in atrial fibrillation dependent atrial for pacing. Otherwise pacemaker is working well. Will follow-up in 3 months time. Follow up in the clinic in 3 months time, sooner p.r.n.. Thank you for allowing me to partake in his care Coding Level of Care Code Est Pt Level 4 (37743) Diagnoses Paroxysmal atrial fibrillation I48.0 (HFpEF) heart failure with preserved ejection fraction I50.30 Cardiac pacemaker in situ Z95.0 CPT Codes Cardiac Device Check - Cardiac Device 2: [id number] Cardiac Device Check, pacemaker dual lead ([id number]) EKG - CPT: 83273-[id number], Complete ([id number])
== END 2022-11-20 09:56 | disposition home or self-care (01) ==
PROVIDERS: PCP Family Medicine; Referring Provider Family Medicine; Visit Provider Internal Medicine Cardiovascular Disease
DX: I48.0 Paroxysmal atrial fibrillation (principal); I50.30 Unspecified diastolic (congestive) heart failure; Z95.0 Presence of cardiac pacemaker
CPT/HCPCS: 93280; 99214

== ENCOUNTER → 2022-11-20 09:23 | Outpatient (BNVA) | payer MEDICARE, SELFPAY | PROVIDERS: PCP Family Medicine; Referring Provider Family Medicine; Visit Provider Internal Medicine Cardiovascular Disease | DX: I48.0 Paroxysmal atrial fibrillation (principal); I50.30 Unspecified diastolic (congestive) heart failure; Z79.01 Long term (current) use of anticoagulants; Z45.018 Encounter for adjustment and management of other part of cardiac pacemaker | CPT/HCPCS: 93005; 93280; 99212 ==

== ENCOUNTER → 2023-01-06 23:59 | Outpatient (BNV) | payer MEDICARE, SELFPAY ==
--- NOTE | 2023-01-08 13:40 | A.OFFVIS_ITS ---
Intake Intake Visit Reasons: Remote Device Check- Medtronic Allergies Seasonal Allergies Allergy (Mild, Verified 08/18/22 09:25) itching and sneezing PFS Medical History History of cardioversion Arthritis Persistent atrial fibrillation Sick sinus syndrome Cardiac pacemaker in situ (HFpEF) heart failure with preserved ejection fraction Hypertension TIA (transient ischemic attack) Wears dentures Wears hearing aid in both ears Hx of cardiac pacemaker Degenerative joint disease Peripheral venous insufficiency Transient cerebral ischemia Hearing loss Retinal artery occlusion Obstructive sleep apnea Obesity (BMI 30-39.9) Surgical History History of right hip replacement Hx of tubal ligation Hx laparoscopic cholecystectomy History of esophagogastroduodenoscopy (EGD) Hx of colonoscopy Status post ORIF of fracture of ankle (~1984) History of cataract surgery (~2016) Social History Are you a primary career guidance technician to a significant other at home: No Do you presently have visiting nurse or other home services: No Alcohol intake: never Patient Tobacco Use Status: Former Tobacco user Quit Date: 25 yrs ago Tobacco use type: Cigarette Advance Directives Date on File: 09/15/14 service: No Current occupational status: retired Current occupation: right handed Office Procedures Cardiac Device Check Cardiac Device Check Details: remote pacemaker report generated 01/08/2023. Pacemaker function is adequate. Increased burden of atrial fibrillation with total burden of 52%. [id number] Cardiac Device Interrogation, pacemaker Procedure code (CPT) selection complete Coding Level of Care Code Procedure Only CPT Codes Cardiac Device Check - Cardiac Device 12: [id number] Cardiac Device Interrogation, pacemaker ([id number])
== END ==
PROVIDERS: PCP Family Medicine; Visit Provider Internal Medicine Cardiovascular Disease
DX: I48.19 Other persistent atrial fibrillation (principal); Z95.0 Presence of cardiac pacemaker
CPT/HCPCS: 93294

== ENCOUNTER 2023-02-22 09:51 | Outpatient (AMB) | payer MEDICARE, SELFPAY ==
[2023-02-22 09:54] VITALS: BP 125/70; PULSE 64; BMI 38.2
--- NOTE | 2023-02-22 09:54 | MHC.OFFVIS ---
Intake Vital Signs 02/22/23 09:54 Height 5 ft 4 in Weight 222 lb 10.67 oz BMI 38.2 BP 125/70 Pulse 64 Intake Visit Reasons: 3 mth fu w/ ekg/Medtronic Intake Note: 3 mnt f/up w/ ekg/ metronic/ PT its feeling fine some times with shortness of breath. Medical Health Researcher Required: No Accompanied by: Self / Same As Patient Allergies Seasonal Allergies Allergy (Mild, Verified 08/18/22 09:25) itching and sneezing Medication List - Last Reconciled 02/22/23 by Franco Chopra MD acetaminophen (Tylenol) 650 mg PO Q6H PRN apixaban (Eliquis) 5 mg PO BID duloxetine 30 mg PO DAILY empagliflozin (Jardiance) 10 mg PO DAILY losartan 100 mg PO DAILY metoprolol succinate ER 50 mg PO BEDTIME torsemide 10 mg PO DAILY HPI HPI Comments History of Present Illness Details Yina comes for follow-up. She denies any orthopnea, PND, has more unilateral swelling in the left lower extremity after the injury. Does have increasing symptoms of exertional shortness of breath although does not participate in regular physical activity. Denies any lightheadedness, syncope. No bleeding issues or neurologic events. No exertional chest pain. Comes for pacemaker evaluation. [facility] Medical History History of cardioversion Arthritis Persistent atrial fibrillation Sick sinus syndrome Cardiac pacemaker in situ (HFpEF) heart failure with preserved ejection fraction Hypertension TIA (transient ischemic attack) Wears dentures Wears hearing aid in both ears Hx of cardiac pacemaker Degenerative joint disease Peripheral venous insufficiency Transient cerebral ischemia Hearing loss Retinal artery occlusion Obstructive sleep apnea Obesity (BMI 30-39.9) Surgical History History of right hip replacement Hx of tubal ligation Hx laparoscopic cholecystectomy History of esophagogastroduodenoscopy (EGD) Hx of colonoscopy Status post ORIF of fracture of ankle (~1984) History of cataract surgery (~2016) Social History Are you a primary eye care professional to a significant other at home: No Do you presently have visiting nurse or other home services: No Alcohol intake: never Patient Tobacco Use Status: Former Tobacco user Quit Date: 25 yrs ago Tobacco use type: Cigarette Advance Directives Date on File: 09/15/14 service: No Current occupational status: retired Current occupation: right handed Review of Systems Const Reports chills, Reports fatigue, Reports fever(s), Reports frequent falls, Reports weakness, Reports weight gain and Reports weight loss ENT Reports dizziness Card Reports chest pain, Reports leg edema, Reports lightheadedness, Reports palpitations, Reports dyspnea and Reports dyspnea on exertion Resp Reports cough, Reports dyspnea and Reports dyspnea on exertion GI Reports hematochezia Musc Reports abnormal gait, Reports muscle weakness, Reports numbness, Reports radiating pain into limb and Reports tingling Neuro Denies Abnormal speech present, Reports abnormal gait, Reports dizziness, Reports frequent falls, Reports numbness, Reports tingling and Reports weakness Endo Reports fatigue and Reports palpitations Physical Exam Vital Signs: Last Vital Signs Pulse 64 02/22/23 09:54 BP 125/70 02/22/23 09:54 BMI result Body Mass Index 38.2 Const General: cooperative, comfortable, no acute distress, alert, awake, Physically active and well groomed Nutritional Appearance: obese Orientation/consciousness: patient oriented x3 Limitations: no limitations HEENT Head: Yes normocephalic and Yes atraumatic Neck Neck: Yes trachea midline, Yes supple and Yes no JVD Resp Effort & Inspection: normal respiratory effort Auscultation: clear to auscultation bilaterally Cardio Jugular venous distension: no JVD Palpation: normal PMI Rhythm: abnormal rhythm irregularly irregular Heart sounds: S1 normal heart sound present, S2 normal heart sound present, no click, no gallops, no murmurs and no rubs GI Auscultation: normal bowel sounds Skin General skin exam: no rashes or lesions noted Neuro General: patient oriented x3 and no focal motor deficits Speech: No Abnormal speech present Extrem Other: There is a large open wound on the anterior aspect of the upper part of the left leg with fall smelling discharge with pus oozing out with blood-tinged secretion with necrotic skin flap General: No clubbing, No cyanosis, Yes edema (Left lower extremity swelling below knee) and Yes venous stasis dermatitis Psych Appearance: grossly normal Office Procedures Cardiac Device Check Cardiac Device Check Details: Dual-chamber Medtronic pacemaker in place. Programmed in DDDR at 60 beats per minute. Long episodes of atrial fibrillation noted with total burden of atrial fibrillation about 59% with atrial pacing remainder of the time. Patient says she does not feel any symptoms of palpitation any altered symptoms. Atrial pacing thresholds adequate and reprogrammed to enhance battery life. Ventricular pacing thresholds adequate. Atrial ventricular sensing is adequate. Pacing lead impedance is stable. Battery life is excellent [id number] Cardiac Device Check, pacemaker dual lead Procedure code (CPT) selection complete EKG Details: EKG shows atrially paced, ventricularly sensed rhythm with left axis deviation with nonspecific ST changes [id number], Complete Assessment & Plan Assessment & Plan (1) (HFpEF) heart failure with preserved ejection fraction: Code(s): I50.30 - Unspecified diastolic (congestive) heart failure Plan: Heart failure preserved ejection fraction, with increasing symptoms exertional shortness of breath. This could be related to deconditioning and weight as well as advanced diastolic dysfunction. Will obtain echocardiogram to evaluate for LV systolic and diastolic function to evaluate for pulmonary hypertension. Patient is at high risk for heart failure progression as well as hospitalization. Continue current diuretic regimen. Importance of daily weight monitoring avoidance of salt loading was discussed. Continue current Jardiance therapy for heart failure as well. Additional diuretics as need be. Continue aggressive blood pressure control. (2) Paroxysmal atrial fibrillation: Code(s): I48.0 - Paroxysmal atrial fibrillation Plan: Paroxysmal atrial fibrillation, having increasing burden of atrial fibrillation. Although unclear if patient having symptoms during these times although she denies any typical symptoms of atrial fibrillation. High risk for progressing to persistent atrial fibrillation. In persistent atrial fibrillation if she has no significant symptoms will then pursue rate control approach. Continue full oral anticoagulation, currently on Eliquis 5 mg b.i.d.. Quarterly renal function test should be pursued. Will obtain lab work from your office. (3) Cardiac pacemaker in situ: Comment: Medtronic dual-chamber pacemaker Code(s): Z95.0 - Presence of cardiac pacemaker Plan: Cardiac pacemaker in-situ for sick sinus syndrome. When not in atrial fibrillation patient is pacer dependent in the atrium. Will continue monitor remotely every 3 months and follow up in the clinic in 6 months time. Will follow up in the clinic in 6 months time, sooner p.r.n.. Thank you for allowing me to partake in her care Orders: Orders CA echo transthoracic complete Today I50.30 - Unspecified diastolic (congestive) heart failure Coding Level of Care Code Est Pt Level 4 (76200) Diagnoses (HFpEF) heart failure with preserved ejection fraction I50.30 Paroxysmal atrial fibrillation I48.0 Cardiac pacemaker in situ Z95.0 CPT Codes Cardiac Device Check - Cardiac Device 2: [id number] Cardiac Device Check, pacemaker dual lead ([id number]) EKG - CPT: 37061-[id number], Complete ([id number])
== END 2023-02-22 10:24 | disposition home or self-care (01) ==
PROVIDERS: PCP Family Medicine; Visit Provider Internal Medicine Cardiovascular Disease
DX: I50.30 Unspecified diastolic (congestive) heart failure (principal); I48.0 Paroxysmal atrial fibrillation; Z95.0 Presence of cardiac pacemaker
CPT/HCPCS: 93280; 99214

== ENCOUNTER → 2023-02-22 09:51 | Outpatient (BNVA) | payer MEDICARE, SELFPAY | PROVIDERS: PCP Family Medicine; Visit Provider Internal Medicine Cardiovascular Disease | DX: Z45.018 Encounter for adjustment and management of other part of cardiac pacemaker (principal); I50.30 Unspecified diastolic (congestive) heart failure; I48.0 Paroxysmal atrial fibrillation | CPT/HCPCS: 93005; 93280; 99212 ==

== ENCOUNTER → 2023-03-16 10:42 | Outpatient (REF) | payer MEDICARE, SELFPAY | LOC: HO.CARD 10:42 | PROVIDERS: PCP Family Medicine; Visit Provider Internal Medicine Cardiovascular Disease | DX: I50.30 Unspecified diastolic (congestive) heart failure (principal) | CPT/HCPCS: 93306 ==

== ENCOUNTER → 2023-03-16 10:50 | Outpatient (BNV) | payer MEDICARE, SELFPAY | PROVIDERS: PCP Family Medicine; Visit Provider Internal Medicine Cardiovascular Disease | DX: I50.30 Unspecified diastolic (congestive) heart failure (principal) | CPT/HCPCS: 93306 ==

== ENCOUNTER → 2023-04-07 23:59 | Outpatient (BNV) | payer MEDICARE, SELFPAY ==
--- NOTE | 2023-04-09 17:49 | MHC.OFFVIS ---
Intake Intake Visit Reasons: Remote Device Check- Medtronic Allergies Seasonal Allergies Allergy (Mild, Verified 08/18/22 09:25) itching and sneezing PFSH Medical History History of cardioversion Arthritis Persistent atrial fibrillation Sick sinus syndrome Cardiac pacemaker in situ (HFpEF) heart failure with preserved ejection fraction Hypertension TIA (transient ischemic attack) Wears dentures Wears hearing aid in both ears Hx of cardiac pacemaker Degenerative joint disease Peripheral venous insufficiency Transient cerebral ischemia Hearing loss Retinal artery occlusion Obstructive sleep apnea Obesity (BMI 30-39.9) Surgical History History of right hip replacement Hx of tubal ligation Hx laparoscopic cholecystectomy History of esophagogastroduodenoscopy (EGD) Hx of colonoscopy Status post ORIF of fracture of ankle (~1984) History of cataract surgery (~2016) Social History Are you a primary career based intervention coordinator to a significant other at home: No Do you presently have visiting nurse or other home services: No Alcohol intake: never Patient Tobacco Use Status: Former Tobacco user Quit Date: 25 yrs ago Tobacco use type: Cigarette Advance Directives Date on File: 09/15/14 service: No Current occupational status: retired Current occupation: right handed Office Procedures Cardiac Device Check Cardiac Device Check Details: Remote pacemaker report generated 04/07/2023. Pacemaker function is adequate. [place] of atrial fibrillation about 65% [id number] Cardiac Device Interrogation, pacemaker Procedure code (CPT) selection complete Assessment & Plan Assessment & Plan (1) Cardiac pacemaker in situ: Comment: Medtronic dual-chamber pacemaker Code(s): Z95.0 - Presence of cardiac pacemaker Plan: See above Coding Level of Care Code Procedure Only Diagnoses Cardiac pacemaker in situ Z95.0 CPT Codes Cardiac Device Check - Cardiac Device 12: [id number] Cardiac Device Interrogation, pacemaker ([id number])
== END ==
PROVIDERS: PCP Family Medicine; Visit Provider Internal Medicine Cardiovascular Disease
DX: I48.19 Other persistent atrial fibrillation (principal); Z95.0 Presence of cardiac pacemaker
CPT/HCPCS: 93294

== ENCOUNTER → 2023-07-07 23:59 | Outpatient (BNV) | payer MEDICARE, SELFPAY ==
--- NOTE | 2023-07-11 13:08 | MHC.OFFVIS ---
Intake Visit Reasons: Remote device check- Medtronic Allergies Seasonal Allergies Allergy (Mild, Verified 08/18/22 09:25) itching and sneezing PFSH Medical History History of cardioversion Arthritis Persistent atrial fibrillation Sick sinus syndrome Cardiac pacemaker in situ (HFpEF) heart failure with preserved ejection fraction Hypertension TIA (transient ischemic attack) Wears dentures Wears hearing aid in both ears Hx of cardiac pacemaker Degenerative joint disease Peripheral venous insufficiency Transient cerebral ischemia Hearing loss Retinal artery occlusion Obstructive sleep apnea Obesity (BMI 30-39.9) Surgical History History of right hip replacement Hx of tubal ligation Hx laparoscopic cholecystectomy History of esophagogastroduodenoscopy (EGD) Hx of colonoscopy Status post ORIF of fracture of ankle (~1984) History of cataract surgery (~2016) Social History Are you a primary personal care service provider to a significant other at home: No Do you presently have visiting nurse or other home services: No Alcohol intake: never Patient Tobacco Use Status: Former Tobacco user Quit Date: 25 yrs ago Tobacco use type: Cigarette Advance Directives Date on File: 09/15/14 service: No Current occupational status: retired Current occupation: right handed Office Procedures Cardiac Device Check Cardiac Device Check Details: Remote pacemaker report generated 07/07/2023. Pacemaker function is adequate. Frequent episodes of atrial fibrillation noted [id number] Cardiac Device Interrogation, pacemaker Procedure code (CPT) selection complete Assessment & Plan Assessment & Plan (1) Cardiac pacemaker in situ: Comment: Medtronic dual-chamber pacemaker Code(s): Z95.0 - Presence of cardiac pacemaker Category: Medical Plan: See above Coding Level of Care Code Procedure Only Diagnoses Cardiac pacemaker in situ Z95.0 CPT Codes Cardiac Device Check - Cardiac Device 12: [id number] Cardiac Device Interrogation, pacemaker ([id number])
== END ==
PROVIDERS: PCP Family Medicine; Visit Provider Internal Medicine Cardiovascular Disease
DX: I48.91 Unspecified atrial fibrillation (principal); Z95.0 Presence of cardiac pacemaker
CPT/HCPCS: 93294

== ENCOUNTER 2023-08-29 09:01 | Outpatient (AMB) | payer MEDICARE, SELFPAY ==
[2023-08-29 09:42] VITALS: BP 120/76; PULSE 70; BMI 39.0
--- NOTE | 2023-08-29 09:42 | MHC.OFFVIS ---
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 She has no symptoms associated currently says her shortness of breath has gradually improved. Pacer shows increasing burden of atrial fibrillation to about 65%. The longest episode yesterday and she said she felt no different yesterday when she is today. She is in atrially paced rhythm today. She denies any palpitations, worsening shortness of breath, orthopnea, PND, leg edema. This has remained stable on current diuretic dose. Denies any clear orthopnea, PND. No lightheadedness, syncope. No bleeding issues or neurologic events PFSH Medical History History of cardioversion Arthritis Persistent atrial fibrillation Sick sinus syndrome Cardiac pacemaker in situ (HFpEF) heart failure with preserved ejection fraction Hypertension TIA (transient ischemic attack) Wears dentures Wears hearing aid in both ears Hx of cardiac pacemaker Degenerative joint disease Peripheral venous insufficiency Transient cerebral ischemia Hearing loss Retinal artery occlusion Obstructive sleep apnea Obesity (BMI 30-39.9) Surgical History History of right hip replacement Hx of tubal ligation Hx laparoscopic cholecystectomy History of esophagogastroduodenoscopy (EGD) Hx of colonoscopy Status post ORIF of fracture of ankle (~1984) History of cataract surgery (~2016) Social History Are you a primary patient care technician instructor to a significant other at home: No Do you presently have visiting nurse or other home services: No Alcohol intake: never Patient Tobacco Use Status: Former Tobacco user Tobacco use type: Cigarette Advance Directives Date on File: 09/15/14 service: No Current occupational status: retired Current occupation: right handed Review of Systems Const Denies chills, Denies fatigue, Denies fever(s), Denies frequent falls, Denies weakness, Denies weight gain and Denies weight loss ENT Denies dizziness Card Denies chest pain, Denies leg edema, Denies lightheadedness, Denies palpitations, Denies dyspnea, Denies dyspnea on exertion, Denies orthopnea and Denies other (loss of consciousness) Resp Denies cough, Denies dyspnea and Denies dyspnea on exertion GI Denies hematochezia and Denies change in stool character Musc Denies abnormal gait, Denies muscle weakness, Denies numbness, Denies radiating pain into limb and Denies tingling Neuro Denies Abnormal speech present, Denies abnormal gait, Denies dizziness, Denies frequent falls, Denies numbness, Denies tingling and Denies weakness Endo Denies fatigue and Denies palpitations Physical Exam Vital Signs: Last Vital Signs Pulse 70 08/29/23 09:42 BP 120/76 08/29/23 09:42 BMI result Body Mass Index 39.0 Const General: cooperative, comfortable, no acute distress, alert, awake, Physically active and well groomed Nutritional Appearance: obese Orientation/consciousness: patient oriented x3 Limitations: no limitations HEENT Head: Yes normocephalic and Yes atraumatic Neck Neck: Yes trachea midline, Yes supple and Yes no JVD Resp Effort & Inspection: normal respiratory effort Auscultation: clear to auscultation bilaterally Cardio Jugular venous distension: no JVD Palpation: normal PMI Rhythm: abnormal rhythm irregularly irregular Heart sounds: S1 normal heart sound present, S2 normal heart sound present, no click, no gallops, no murmurs and no rubs GI Auscultation: normal bowel sounds Skin General skin exam: no rashes or lesions noted Neuro General: patient oriented x3 and no focal motor deficits Speech: No Abnormal speech present Extrem Other: There is a large open wound on the anterior aspect of the upper part of the left leg with fall smelling discharge with pus oozing out with blood-tinged secretion with necrotic skin flap General: No clubbing, No cyanosis, Yes edema (Left lower extremity swelling below knee) and Yes venous stasis dermatitis Psych Appearance: grossly normal Office Procedures Cardiac Device Check Cardiac Device Check Details: Dual-chamber Medtronic pacemaker in place. Programmed in MVP mode with rate response. Atrial fibrillation burden at 65%, remainder of the time she is atrially paced. Atrial and ventricular sensing is okay today. Atrial ventricular pacing thresholds adequate and reprogrammed to provide adequate safety and enhance battery life. Pacing lead impedance is stable. Battery life is at about 8 years [id number] Cardiac Device Check, pacemaker dual lead Procedure code (CPT) selection complete Assessment & Plan Assessment & Plan (1) (HFpEF) heart failure with preserved ejection fraction: Code(s): I50.30 - Unspecified diastolic (congestive) heart failure Category: Medical Plan: Heart failure preserved ejection fraction, clinically euvolemic and well compensated current torsemide as well as Jardiance dose. Continue the same. Management of heart failure was discussed. Daily weight monitoring avoidance of salt loading was discussed. Additional diuretics as need be. Advised to call me if there sudden worsening in his symptoms. Continue participate in physical activity and weight loss program. Continue aggressive blood pressure control which is currently well optimized. (2) Paroxysmal atrial fibrillation: Code(s): I48.0 - Paroxysmal atrial fibrillation Category: Medical Plan: Patient still having intermittent episodes of atrial fibrillation with increasing burden at 65% now and has no symptoms associated with it. This point time we discussed about management of atrial fibrillation and if she continues to have no symptoms with persistent atrial fibrillation will pursue rate control approach. This was discussed with her. She would worsening heart failure syndrome will pursue rhythm control approach and may require amiodarone therapy. Continue full oral anticoagulation, currently on Eliquis 5 mg b.i.d.. Semi annual renal function test and annual CBC test should be pursued. (3) Cardiac pacemaker in situ: Comment: Medtronic dual-chamber pacemaker Code(s): Z95.0 - Presence of cardiac pacemaker Category: Medical Plan: Cardiac pacemaker in-situ, working well. Reprogrammed for adequate function. Will follow remotely and follow up in the clinic in 6 months time. Follow up in the clinic in 6 months time, sooner p.r.n.. Thank you for allowing me to partake in the care Coding Level of Care Code Est Pt Level 4 (13830) Diagnoses (HFpEF) heart failure with preserved ejection fraction I50.30 Paroxysmal atrial fibrillation I48.0 Cardiac pacemaker in situ Z95.0 CPT Codes Cardiac Device Check - Cardiac Device 2: [id number] Cardiac Device Check, pacemaker dual lead ([id number])
== END 2023-08-29 10:15 | disposition home or self-care (01) ==
PROVIDERS: PCP Family Medicine; Visit Provider Internal Medicine Cardiovascular Disease
DX: I50.30 Unspecified diastolic (congestive) heart failure (principal); I48.0 Paroxysmal atrial fibrillation; Z95.0 Presence of cardiac pacemaker
CPT/HCPCS: 93280; 99214

== ENCOUNTER → 2023-08-29 09:01 | Outpatient (BNVA) | payer MEDICARE, SELFPAY | PROVIDERS: PCP Family Medicine; Visit Provider Internal Medicine Cardiovascular Disease | DX: Z45.018 Encounter for adjustment and management of other part of cardiac pacemaker (principal); I50.30 Unspecified diastolic (congestive) heart failure; I48.0 Paroxysmal atrial fibrillation | CPT/HCPCS: 93280; 99212 ==

== ENCOUNTER → 2023-10-06 23:59 | Outpatient (BNV) | payer MEDICARE, SELFPAY ==
--- NOTE | 2023-10-10 09:57 | MHC.OFFVIS ---
Intake Visit Reasons: Remote device check- medtronic Allergies Seasonal Allergies Allergy (Mild, Verified 08/18/22 09:25) itching and sneezing PFSH Medical History History of cardioversion Arthritis Persistent atrial fibrillation Sick sinus syndrome Cardiac pacemaker in situ (HFpEF) heart failure with preserved ejection fraction Hypertension TIA (transient ischemic attack) Wears dentures Wears hearing aid in both ears Hx of cardiac pacemaker Degenerative joint disease Peripheral venous insufficiency Transient cerebral ischemia Hearing loss Retinal artery occlusion Obstructive sleep apnea Obesity (BMI 30-39.9) Surgical History History of right hip replacement Hx of tubal ligation Hx laparoscopic cholecystectomy History of esophagogastroduodenoscopy (EGD) Hx of colonoscopy Status post ORIF of fracture of ankle (~1984) History of cataract surgery (~2016) Social History Are you a primary healthcare receptionist to a significant other at home: No Do you presently have visiting nurse or other home services: No Alcohol intake: never Patient Tobacco Use Status: Former Tobacco user Tobacco use type: Cigarette Advance Directives Date on File: 09/15/14 service: No Current occupational status: retired Current occupation: right handed Office Procedures Cardiac Device Check Cardiac Device Check Details: Remote pacemaker report generated 10/06/2023. Pacemaker function is adequate. Increasing burden of atrial fibrillation noted [id number] Cardiac Device Interrogation, pacemaker Procedure code (CPT) selection complete Assessment & Plan Assessment & Plan (1) Cardiac pacemaker in situ: Comment: Medtronic dual-chamber pacemaker Code(s): Z95.0 - Presence of cardiac pacemaker Category: Medical Plan: See above Coding Level of Care Code Procedure Only Diagnoses Cardiac pacemaker in situ Z95.0 CPT Codes Cardiac Device Check - Cardiac Device 12: [id number] Cardiac Device Interrogation, pacemaker ([id number])
== END ==
PROVIDERS: PCP Family Medicine; Visit Provider Internal Medicine Cardiovascular Disease
DX: I48.91 Unspecified atrial fibrillation (principal); Z95.0 Presence of cardiac pacemaker
CPT/HCPCS: 93294

== ENCOUNTER → 2024-01-05 23:59 | Outpatient (BNV) | payer MEDICARE, SELFPAY ==
--- NOTE | 2024-01-14 16:57 | MHC.OFFVIS ---
Intake Visit Reasons: Remote device check- medtronic Allergies Seasonal Allergies Allergy (Mild, Verified 08/18/22 09:25) itching and sneezing PFSH Medical History History of cardioversion Arthritis Persistent atrial fibrillation Sick sinus syndrome Cardiac pacemaker in situ (HFpEF) heart failure with preserved ejection fraction Hypertension TIA (transient ischemic attack) Wears dentures Wears hearing aid in both ears Hx of cardiac pacemaker Degenerative joint disease Peripheral venous insufficiency Transient cerebral ischemia Hearing loss Retinal artery occlusion Obstructive sleep apnea Obesity (BMI 30-39.9) Surgical History History of right hip replacement Hx of tubal ligation Hx laparoscopic cholecystectomy History of esophagogastroduodenoscopy (EGD) Hx of colonoscopy Status post ORIF of fracture of ankle (~1984) History of cataract surgery (~2016) Social History Are you a primary youth care specialist to a significant other at home: No Do you presently have visiting nurse or other home services: No Alcohol intake: never Patient Tobacco Use Status: Former Tobacco user Tobacco use type: Cigarette Advance Directives Date on File: 09/15/14 service: No Current occupational status: retired Current occupation: right handed Office Procedures Cardiac Device Check Cardiac Device Check Details: Remote pacemaker report generated 01/07/2024. Pacemaker function is adequate. Persistent atrial fibrillation noted [id number] Cardiac Device Interrogation, pacemaker Procedure code (CPT) selection complete Assessment & Plan Assessment & Plan (1) Cardiac pacemaker in situ: Comment: Medtronic dual-chamber pacemaker Code(s): Z95.0 - Presence of cardiac pacemaker Category: Medical Plan: See above Coding Level of Care Code Procedure Only Diagnoses Cardiac pacemaker in situ Z95.0 CPT Codes Cardiac Device Check - Cardiac Device 12: [id number] Cardiac Device Interrogation, pacemaker ([id number])
== END ==
PROVIDERS: PCP Family Medicine; Visit Provider Internal Medicine Cardiovascular Disease
DX: Z45.018 Encounter for adjustment and management of other part of cardiac pacemaker (principal)
CPT/HCPCS: 93294

== ENCOUNTER 2024-04-10 12:35 | Outpatient (AMB) | payer MEDICARE, SELFPAY ==
[2024-04-10 12:36] VITALS: BP 120/82; PULSE 78; O2SAT 98; BMI 40.5
--- NOTE | 2024-04-10 12:36 | A.OFFVIS_ITS ---
Vital Signs 04/10/24 12:36 Height 5 ft 4 in Weight 235 lb 14.314 oz BMI 40.5 BP 120/82 Blood Pressure Location Lt brachial Position Sitting Pulse 78 Pulse Oximetry (%) 98 Intake Visit Reasons: r/s 02/27 6 mos f/u w/med pacer ck/ekg Intake Note: Follow-up with Medtronic check and ekg c/o sob with little excretion Formulation Technician Required: No Allergies Seasonal Allergies Allergy (Mild, Verified 08/18/22 09:25) itching and sneezing Medication List - Last Reconciled 04/10/24 by Franco Chopra MD acetaminophen (Tylenol) 650 mg PO Q6H PRN apixaban (Eliquis) 5 mg PO BID empagliflozin (Jardiance) 10 mg PO DAILY 90 days losartan 100 mg PO DAILY metoprolol succinate ER 50 mg PO BEDTIME 90 days torsemide 5 mg PO DAILY HPI Comments Details: Yina comes for office visit today and says over the last 2 months she has been getting progressively increasing shortness of breath. She was short of breath with minimal exertion including short of breath at nighttime. She was also gained weight and has had increased leg swelling. She says she also gets intermittent symptoms of atrial fibrillation with palpitations. She did not increase her torsemide as has been discussed in the past despite weight gain and worsening shortness of breath. Comes for a follow-up visit more of an urgent follow-up visit. She has been taking oral anticoagulation regularly. She has been taking torsemide which is at 5 mg and Jardiance 10 mg regularly. She denies any lightheadedness, syncope. [facility] Medical History (Updated 04/10/24 @ 13:04 by Franco Chopra MD) Persistent atrial fibrillation History of cardioversion Arthritis Sick sinus syndrome Cardiac pacemaker in situ (HFpEF) heart failure with preserved ejection fraction Hypertension TIA (transient ischemic attack) Wears dentures Wears hearing aid in both ears Hx of cardiac pacemaker Degenerative joint disease Peripheral venous insufficiency Transient cerebral ischemia Hearing loss Retinal artery occlusion Obstructive sleep apnea Obesity (BMI 30-39.9) Surgical History History of right hip replacement Hx of tubal ligation Hx laparoscopic cholecystectomy History of esophagogastroduodenoscopy (EGD) Hx of colonoscopy Status post ORIF of fracture of ankle (~1984) History of cataract surgery (~2016) Social History Are you a primary laboratory animal caretaker to a significant other at home: No Do you presently have visiting nurse or other home services: No Alcohol intake: never Patient Tobacco Use Status: Former Tobacco user Tobacco use type: Cigarette Advance Directives Date on File: 09/15/14 service: No Current occupational status: retired Current occupation: right handed Review of Systems Const Denies chills, Denies fatigue, Denies fever(s), Denies frequent falls, Denies weakness, Denies weight gain and Denies weight loss ENT Denies dizziness Card Denies chest pain, Reports leg edema, Denies lightheadedness, Denies palpitations, Reports dyspnea, Denies dyspnea on exertion, Denies orthopnea and Denies other (loss of consciousness) Resp Denies cough, Reports dyspnea and Denies dyspnea on exertion GI Denies hematochezia and Denies change in stool character Musc Denies abnormal gait, Denies muscle weakness, Denies numbness, Denies radiating pain into limb and Denies tingling Neuro Denies Abnormal speech present, Denies abnormal gait, Denies dizziness, Denies frequent falls, Denies numbness, Denies tingling and Denies weakness Endo Denies fatigue and Denies palpitations Physical Exam Vital Signs: Last Vital Signs Pulse 78 04/10/24 12:36 BP 120/82 04/10/24 12:36 Pulse Ox 98 04/10/24 12:36 BMI result Body Mass Index 40.5 Const General: cooperative, comfortable, alert, awake, Physically active, in distress mild and respiratory and well groomed Nutritional Appearance: obese Orientation/consciousness: patient oriented x3 Limitations: no limitations HEENT Head: Yes normocephalic and Yes atraumatic Neck Neck: Yes trachea midline, Yes supple and Yes JVD Resp Effort & Inspection: normal respiratory effort Auscultation: clear to auscultation bilaterally Cardio Jugular venous distension: JVD Palpation: normal PMI Rhythm: abnormal rhythm irregularly irregular Heart sounds: S1 normal heart sound present, S2 normal heart sound present, no click, no gallops, no murmurs and no rubs GI Auscultation: normal bowel sounds Skin General skin exam: no rashes or lesions noted Neuro General: patient oriented x3 and no focal motor deficits Speech: No Abnormal speech present Extrem Other: There is a large open wound on the anterior aspect of the upper part of the left leg with fall smelling discharge with pus oozing out with blood-tinged secretion with necrotic skin flap General: No clubbing, No cyanosis, Yes edema (Left lower extremity swelling below knee) and Yes venous stasis dermatitis Psych Appearance: grossly normal Office Procedures Cardiac Device Check Cardiac Device Check Details: Dual-chamber Medtronic pacemaker in place. Programmed in MVP mode with rate response. Noted persistent atrial fibrillation for the last 6 months. V entricular pacing thresholds are excellent and reprogrammed to enhance battery life. Ventricular sensing is excellent. Pacing lead impedance is stable. Battery life is adequate [id number] Cardiac Device Check, pacemaker dual lead Procedure code (CPT) selection complete EKG Details: EKG shows atrial fibrillation with intermittent ventricular paced rhythm with poor R-wave progression most likely lead placement with nonspecific ST T wave changes [id number], Complete Assessment & Plan Assessment & Plan (1) Decompensated heart failure: Code(s): I50.9 - Heart failure, unspecified Category: Medical Plan: Patient presents with signs and symptoms suggestive of decompensated congestive heart failure with evidence of fluid overload. No significant symptoms will refer to emergency room for further management with IV diuresis. Will need blood work including BNP and BNP as well as other blood work and make sure she was not significantly anemic. She will require IV diuresis and would start her on Lasix drip at 5 mg an hour. Strict intake and output chart needs to be pursued. Continue Jardiance as well as metoprolol and losartan therapy. Most likely reason for decompensation in his persistent atrial fibrillation and inadequate diuresis. Importance of heart failure management was discussed in de tails. Will need an echocardiogram to assess LV systolic and diastolic function as well as RV function biatrial chamber size to determine if she will benefit from rhythm control approach or can be pursued for rhythm control approach. Case was discussed with Dr. Gauthier who accepted the patient to be seen in the emergency room (2) Persistent atrial fibrillation: Code(s): I48.19 - Other persistent atrial fibrillation Category: Medical Plan: Persistent atrial fibrillation most likely cause for her decompensation. At this point time will follow up with echocardiogram to see biatrial chamber size. I think she would benefit from rhythm control approach and may require amiodarone loading with cardioversion. She has been taking her oral anticoagulation therapy religiously. Pacemaker was reprogrammed. Will follow up in the clinic after discharge from the hospitalization in 2-4 weeks. Coding Level of Care Code Est Pt Level 4 (88307) Complex EM visit Add On G2211 Diagnoses Decompensated heart failure I50.9 Persistent atrial fibrillation I48.19 CPT Codes Cardiac Device Check - Cardiac Device 2: [id number] Cardiac Device Check, pacemaker dual lead ([id number]) EKG - CPT: 62555-[id number], Complete ([id number])
--- OUTSIDE RECORDS SUMMARY | 2024-04-10 16:26 | XMS_ITS ---
Author Organization [facility] Address Unknown Allergies, Adverse Reactions, Alerts Substance Reaction Status Noted Date Resolved Date Valacyclovir active 07/13/2017 Microzide active 07/13/2017 Lisinopril active 07/13/2017 Amoxicillin active 07/13/2017 Amlodipine active 07/13/2017 Problems Problem Status Start Date End Date PERICARDIAL EFFUSION (NONINF LAMMATORY) (Primary) (I31.3 - ICD-10-CM) ACTIVE 07/13/2017 UNSPECIFIED ABNORMALITIES OF GAIT AND MOBILITY (R26.9 - ICD-10-CM) ACTIVE 07/13/2017 WEAKNESS (R53.1 - ICD-10-CM) ACTIVE 07/13/2017 UNSPECIFIED ATRIAL FIBRILLATION (I48.91 - ICD-10-CM) A CTIVE 07/13/2017 ACUTE AND SUBACUTE HEPATIC F AILURE WITHOUT COMA (K72.00 - ICD-10-CM) ACTIVE 07/13/2017 ACUTE KIDNEY FAILURE WITH TU BULAR NECROSIS (N17.0 - ICD-10-CM) ACTIVE 07/13/2017 HYPERKALEMIA (E87.5 - ICD-10-CM) ACTIVE 07/14/19 18 SOLITARY PULMONARY NODULE (R91.1 - ICD-10-CM) ACTIVE 07/13/2017 ESSENTIAL (PRIMARY) HYPERTENSION (I10 - ICD-10-CM) ACT ANGELES 07/13/2017 CONTUSION OF LEFT UPPER ARM, SUBSEQUENT ENCOUNTER (S40.022D - ICD-10-CM) ACTIVE 07/13/2017 NUTRITIONAL ANEMIA, UNSPECIFIED (D53.9 - ICD-10-CM) AC TIVE 07/13/2017 Encounters Encounter Performer Performer Role Encounter Diagnoses Location Date Discharge - Home - [facility] [place] 07/13/2017 05:30 pm EDT - 07/16/2017 12:35 pm EDT Immunizations Vaccine Date Influenza 12/11/2016 12:00 pm EDT Pneumovax Dose 1 12/11/2016 12:00 am EDT Social History
== END 2024-04-10 14:50 | disposition home or self-care (01) ==
PROVIDERS: PCP Family Medicine; Visit Provider Internal Medicine Cardiovascular Disease
DX: I50.9 Heart failure, unspecified (principal); I48.19 Other persistent atrial fibrillation
CPT/HCPCS: 93010; 93280; 99214; G2211

== ENCOUNTER → 2024-04-10 12:35 | Outpatient (BNVA) | payer MEDICARE, SELFPAY | PROVIDERS: PCP Family Medicine; Visit Provider Internal Medicine Cardiovascular Disease ==

== ENCOUNTER 2024-04-10 13:01 | Inpatient (IN) | payer MEDICARE, SELFPAY ==
[2024-04-10] VITALS (10 sets, daily range): BP systolic 157–187; BP diastolic 79–103; PULSE 79–106; RESP 15–20; TEMP 36.4–36.7; O2SAT 94–98; BMI 39.1
--- NOTE | ~2024-04-10 | XR_ITS ---
EXAMINATION: XR CHEST CLINICAL INFORMATION: shortness of breath COMPARISON: None available. TECHNIQUE: 2 views of the chest were obtained. FINDINGS: Dual lead pacer device in place with leads extending to the right atrium and right ventricle. Mild cardiac enlargement. Mildly prominent vasculature in the hilar regions. The style contours appear normal. Lungs are diffusely hyperaerated with flattened hemidiaphragms and mildly increased interstitial markings. Findings suggest COPD. Biapical pleural thickening. Subtle Richard lines in the lung bases could suggest a mild interstitial edema. There is no pneumothorax or pleural effusion. There is no focal osseous or soft tissue abnormality. XR/XR chest 2V IMPRESSION: 1. Dual-lead pacer with cardiac enlargement. 2. COPD without focal pneumonia seen. 3. Mild prominence of the interstitial markings with subtle Richard lines could suggest mild CHF. Electronically signed by: Sandro Alas MD 04/10/2024 02:13 PM [facility]
--- NOTE | 2024-04-10 13:03 | ECG_ITS ---
Test Reason : a fib Blood Pressure : */* mmHG Vent. Rate : 100 BPM Atrial Rate : * BPM P-R Int : * ms QRS Dur : 90 ms QT Int : 346 ms P-R-T Axes : * -31 -15 degrees QTcB Int : 446 ms Atrial fibrillation Left axis deviation Possible Anterior infarct , age undetermined Abnormal ECG When compared with ECG of 19-Jul-2022 14:41, rhythm change Referred By: Generic ED Physician Electronically Signed By: BRI HOFF
--- NOTE | 2024-04-10 13:21 | ED_ITS ---
HPI - General Adult General Chief complaint: Dyspnea Stated complaint: Afib?? Time Seen by Provider: 04/10/24 16:52 Source: patient Mode of arrival: wheelchair Limitations: no limitations History of Present Illness ED Provider: Dr. Angela Valencia HPI narrative: Patient comes to the emergency room from Cardiology office. Earlier today, patient was evaluated by her director child Dr. Chopra. Patient has been complaining of shortness of breath for couple of months but it is gradually getting worse. Patient also states that now she has lower extremity edema. Patient has noted that her tolerance to walking has significantly decreased. Patient states that she gets very short of breath with minimal exertion. Also, patient complaining of orthopnea. Patient denies any coughing or URI symptoms. Patient states that she is compliant with her medications, Eliquis. Denies chest pain. Related Data Home Medications ?Medication ?Instructions ?Recorded ?Confirmed apixaban 5 mg tablet (Eliquis) 5 mg PO BID 10/12/20 04/10/24 acetaminophen 325 mg tablet 650 mg PO Q6H PRN Pain 01/04/21 04/10/24 (Tylenol) losartan 100 mg tablet 100 mg PO DAILY 03/03/22 04/10/24 torsemide 10 mg tablet 5 mg PO DAILY 08/29/23 04/10/24 Previous Rx's ?Medication ?Instructions ?Recorded empagliflozin 10 mg tablet 10 mg PO DAILY 90 days #90 tabs 09/07/23 (Jardiance) metoprolol succinate 50 mg 50 mg PO BEDTIME 90 days #90 tabs 10/26/23 tablet,extended release 24 hr Allergies Allergy/AdvReac Type Severity Reaction Status Date / Time Seasonal Allergies Allergy Mild itching Verified 04/10/24 13:25 and sneezing Review of Systems 2 Review of Systems: Constitutional : No Weight loss, No Fever, No Chills, No Night Sweats, No Fatigue, No Malaise ENT/Mouth : No Hearing loss, No Ear Pain, No Nasal Congestion, No Sinus Pain, No Hoarseness, No sore throat, No Rhinorrhea, No Swallowing Difficulty Eyes: No Eye Pain, No Swelling, No Redness, No Foreign Body, No Discharge, No Vision Changes Cardiovascular : No Chest Pain, complaining of significant shortness of breath on exertion, complaining of orthopnea and worsening lower extremity edema Respiratory : No Cough, No Sputum, No Wheezing, No Smoke Exposure, No Dyspnea Gastrointestinal : No Nausea, No Vomiting, No Diarrhea, No Constipation, No abdominal Pain, No Hematochezia, No Melena Genitourinary : no irregular bleeding, No Dysuria, No Urinary Frequency, No Hematuria, No Urinary Incontinence, No Urgency, No Flank Pain, No Urinary Flow Changes, No Hesitancy Musculoskeletal : No joint pain, No Myalgias, No Joint Swelling Skin : No Skin Lesions, No rash Neuro : No Weakness, No Numbness, No Paresthesias, No Loss of Consciousness, No Dizziness, No Headache Psych : No Anxiety/Panic, No Depression, No SI/HI/AH/VH, No Social Issues, Heme/Lymph: No Bruising, No Bleeding,No Lymphadenopathy Endocrine : No Polyuria, No Polydipsia, No Temperature Intolerance [facility] Past Medical History Medical History Persistent atrial fibrillation History of cardioversion Arthritis Sick sinus syndrome Cardiac pacemaker in situ (HFpEF) heart failure with preserved ejection fraction Hypertension TIA (transient ischemic attack) Wears dentures Wears hearing aid in both ears Hx of cardiac pacemaker Degenerative joint disease Peripheral venous insufficiency Transient cerebral ischemia Hearing loss Retinal artery occlusion Obstructive sleep apnea Obesity (BMI 30-39.9) Surgical History History of right hip replacement Hx of tubal ligation Hx laparoscopic cholecystectomy History of esophagogastroduodenoscopy (EGD) Hx of colonoscopy Status post ORIF of fracture of ankle (~1984) History of cataract surgery (~2016) Social History Social History Are you a primary customer care associate to a significant other at home: No Do you presently have visiting nurse or other home services: No Alcohol intake: never Patient Tobacco Use Status: Former Tobacco user Tobacco use type: Cigarette Smoked in Last 30 Days: No Use of substances other than those prescribed or required for medical reasons: No Advance Directives: Yes Advance Directives on File: Yes Advance Directives Date on File: 01/14/21 service: No Current occupational status: retired Current occupation: right handed Physical Exam ED Vital Signs: Vital Signs - 24 hr 04/10/24 13:24 04/10/24 15:34 04/10/24 15:41 Temperature 97.6 F 98.0 F Pulse Rate 96 79 Respiratory Rate 20 15 Blood Pressure 157/98 H 166/81 H Pulse Oximetry 94 98 Oxygen Delivery Method Room Air Room Air Room Air Oxygen Flow Rate 04/10/24 17:53 04/10/24 17:55 Temperature Pulse Rate 85 Respiratory Rate 18 Blood Pressure 185/103 H Pulse Oximetry 98 Oxygen Delivery Method Nasal Cannula Oxygen Flow Rate 2 BMI result Body Mass Index 39.1 Const Other: Appearance: Alert. Oriented X3. No acute distress. Eyes: Pupils equal, round and reactive to light. ENT: Pharynx normal. Neck: Normal inspection. Neck supple. No lymph nodes noted. No crepitus CVS: Irregularly irregular, heart rate in the 80s to 90s, controlled, Pulses normal. Normal S1 and S2, positive JVD Respiratory: Bilateral crackles, no rales, no wheezing Abdomen: Soft and nontender. No rigidity. No distention. Skin: Skin warm and dry. Normal skin color. Normal skin turgor. Extremities: +2 pitting edema bilaterally, no signs of cellulitis. No Lacerations. No Rash Neuro: Oriented X 3. No motor deficit. No sensory deficit. Moving all extremities. No slurred speech. CN 2 through 12 grossly intact Psych: calm, cooperative, normal affect Course Course Course Narrative: RME, this is a rapid medical exam performed by Durga Moise please refer to primary provider for complete H&P- 83-year-old female presents for evaluation of shortness of breath. She was seen at Dr. Chopra office earlier today and was sent into the ED to be admitted for CHF exacerbation. Plan for labs, chest x- ray Medications Administered Discontinued Medications Generic Name Dose Route Start Last Admin Trade Name Freq PRN Reason Stop Dose Admin Furosemide 60 mg 04/10/24 17:08 04/10/24 17:55 Furosemide 100 Mg/10 Ml Vial IVPUSH 04/10/24 17:09 60 mg ONCE ONE Administration Protocol Medical Decision Making Medical Decision Making [facility] Narrative: My interpretation of EKG: Atrial fibrillation, heart rate 100, no ST segment depression or elevation, nonspecific T-wave inversion, QTC 446. My interpretation of labs: No significant abnormality in patient's hematology and chemistry, troponin negative, BNP 337, TSH and free T4 pending Chest x-ray shows mild pulmonary edema. Patient got up to go to the bathroom, within walking 15 steps, patient became significantly short of breath. Patient needs assistance to returned to her bed. Per patient's nurse, oxygen dropped to 85% on room air. Patient is not O2 dependent. Patient was put on 2 L nasal cannula to help her recuperate Patient was given IV Lasix I reviewed Dr. Chopra's notes, patient to be started on IV Lasix and continue metoprolol. I discussed the patient with Dr. Galvin from the Medicine team, patient being admitted Patient agrees with plan Differential Diagnosis Differential Diagnoses: The differential diagnosis associated with the presentation includes (CHF, pneumonia, URI) Admission/Observation Consideration of admission/observation: Escalation of care including admission/observation considered Consult Healthcare Provider Management of the patient was discussed with: Hospitalist Lab Data MDM Lab Attestation statement: I reviewed the patient's lab results. 04/10/24 14:15 04/10/24 14:15 Labs: Lab Results 04/10/24 Range/Units 14:15 WBC 5.9 (4.8-10.8) X10*3/uL RBC 4.93 D (4.20-5.50) X10*6/uL Hgb 16.0 D (12.0-16.0) g/dl Hct 47.4 H D (37.0-47.0) % MCV 96.1 (80.0-98.0) fL MCH 32.5 (27.0-33.0) pg MCHC 33.8 (31.0-35.0) g/dl RDW 13.2 (11.0-16.0) % Plt Count 197 (160-400) X10*3/uL MPV 10.0 (9.4-12.3) fL Immature Gran % (Auto) 0.3 (0.0-0.4) % Neut % (Auto) 59.2 (45-73) % Lymph % (Auto) 28.4 (20-40) % [place] % (Auto) 8.8 (2-11) % Eos % (Auto) 2.5 (0-4) % Baso % (Auto) 0.8 (0-2) % Lymph # (Auto) 1.7 (1.2-4.9) X10*3/uL [place] # (Auto) 0.5 (0.1-1.2) X10*3/uL Eos # (Auto) 0.2 (0.0-0.4) X10*3/uL Baso # (Auto) 0.1 (0.0-0.2) X10*3/uL Abs Immat Gran (auto) 0.02 (0.00-0.03) X10*3/uL Absolute Neuts (auto) 3.5 (2.0-8.3) x10*3/uL Absolute Nucleated RBC 0.000 (0.0-0.012) X10*3/uL Nucleated RBC % (auto) 0.0 (0.0-0.2) /100WBC PT 17.6 H (10.9-12.4) SEC INR 1.5 H (0.9-1.1) Sodium 139 (135-145) mmol/L Potassium 3.9 (3.3-5.1) mmol/L Chloride 109 H (96-108) mmol/L Carbon Dioxide 23 (22-29) mmol/L Anion Gap 11 L (12-20) BUN 12 (9-16) mg/dL Creatinine 0.93 (0.5-1.4) mg/dL Estim Creat Clear Calc 54.6 Estimated GFR 58 Random Glucose 94 (60-115) mg/dL Calcium 8.5 D (8.4-10.2) mg/dL Total Bilirubin 0.7 (0.0-1.0) mg/dL AST 27 (5-31) U/L ALT 19 (0-31) U/L Alkaline Phosphatase 97 (39-117) U/L Troponin I High Sens < 2.7 (<3.5-17.0) ng/L B-Natriuretic Peptide 337 H (<100) pg/mL Total Protein 7.2 (6.5-8.0) g/dL Albumin 3.7 (3.5-5.0) g/dL Lipase 24 (8-78) U/L Influenza Type A (PCR) NEGATIVE (Negative) Influenza Type B (PCR) NEGATIVE (Negative) RSV RNA Qual (PCR) NEGATIVE (Negative) SARS-CoV-2 RNA (RT-PCR) NEGATIVE (Negative) Independent Interpretation I performed an independent interpretation of an: Plain X-Ray Radiology Impression Discussion of test interpretation with radiology: I have reviewed the radiologist's reading. Radiologist Impression: 1. Dual-lead pacer with cardiac enlargement. 2. COPD without focal pneumonia seen. 3. Mild prominence of the interstitial markings with subtle Richard lines could suggest mild CHF. Critical Care Time Critical Care Time Critical Care Time: Yes Total Critical Care Time: 60 Attestation: I have personally provided critical care time. Time includes review of lab data, radiology results, discussion with consultants, and monitoring for potential decompensation. Intervention performed as documented. Discharge Plan Discharge Clinical Impression: Acute exacerbation of chronic heart failure Patient Disposition: Admitted As Inpatient Prescriptions: No Action Jardiance 10 mg tablet 10 mg PO DAILY 90 Days Qty: 90 3RF metoprolol succinate 50 mg tablet extended release 24 hr 50 mg PO BEDTIME 90 Days Qty: 90 3RF acetaminophen [Tylenol] 325 mg Tablet 650 mg PO Q6H PRN (Reason: Pain) Eliquis 5 mg tablet 5 mg PO BID losartan 100 mg tablet 100 mg PO DAILY torsemide 10 mg tablet 5 mg PO DAILY Print Language: Kazakh
[2024-04-10 14:24] LABS: MANUAL DIFF FLAG NO
[2024-04-10 14:27] LABS: Basophils Absolute Auto 0.1 X10*3/uL (0.0-0.2); Basophils Percent Auto 0.8 % (0-2); Eosinophils Absolute Auto 0.2 X10*3/uL (0.0-0.4); Eosinophils Percent Auto 2.5 % (0-4); Hematocrit 47.4 % (37.0-47.0); Imm Gran Abs Auto 0.02 X10*3/uL (0.00-0.03); Imm Gran Pct Auto 0.3 % (0.0-0.4); Lymphocytes Absolute Auto 1.7 X10*3/uL (1.2-4.9); Lymphocytes Percent Auto 28.4 % (20-40); Mean Corpuscular HGB Conc 33.8 g/dl (31.0-35.0); Mean Corpuscular Hemoglobin 32.5 pg (27.0-33.0); Mean Corpuscular Volume 96.1 fL (80.0-98.0); Monocytes Absolute Auto 0.5 X10*3/uL (0.1-1.2); Monocytes Percent Auto 8.8 % (2-11); Neutrophils Absolute Auto 3.5 x10*3/uL (2.0-8.3); Neutrophils Percent Auto 59.2 % (45-73); Platelet Count 197 X10*3/uL (160-400); Red Blood Count 4.93 X10*6/uL (4.20-5.50); Red Cell Distribution Width 13.2 % (11.0-16.0); White Blood Count 5.9 X10*3/uL (4.8-10.8)
[2024-04-10 14:35] LABS: INTERNATIONAL NORM RATIO 1.5 (0.9-1.1); Prothrombin Time 17.6 SEC (10.9-12.4)
[2024-04-10 14:41] LABS: Alanine Aminotransferase 19 U/L (0-31); Albumin Level 3.7 g/dL (3.5-5.0); Alkaline Phosphatase 97 U/L (39-117); Anion Gap 11 (12-20); Aspartate Amino Transferase 27 U/L (5-31); Bilirubin Total 0.7 mg/dL (0.0-1.0); Blood Urea Nitrogen 12 mg/dL (9-16); Calcium 8.5 mg/dL (8.4-10.2); Carbon Dioxide 23 mmol/L (22-29); Chloride 109 mmol/L (96-108); Creatinine Clr Calc Pharmacy 54.6; Estimated Glomerular Filt Rate 58; Glucose Random 94 mg/dL (60-115); Lipase 24 U/L (8-78); Potassium 3.9 mmol/L (3.3-5.1); Sodium 139 mmol/L (135-145); Total Protein 7.2 g/dL (6.5-8.0)
[2024-04-10 14:45] LABS: B Type Natriuretic Peptide 337 pg/mL (<100)
[2024-04-10 14:50] LABS: Troponin-I High Sensitivity < 2.7 ng/L (<3.5-17.0)
[2024-04-10 15:21] LABS: Influenza A PCR NEGATIVE (Negative); Influenza B PCR NEGATIVE (Negative); Resp Syncy Virus RNA Qual PCR NEGATIVE (Negative); SARS COV2 PCR INHOUSE NEGATIVE (Negative)
--- NOTE | 2024-04-10 17:51 | PC.NURSE ---
at approx 1600, pt ambulated steady to bathroom and spo2 was in the mid 80's with increased work of breathing, placed on o2 and quickly came back up to 97 with 2lmp nc
[2024-04-10] MEDS: Furosemide 100 MG/10 ML VIAL 60 MG IVPUSH (17:55)
[2024-04-10] MEDS: Furosemide 200 MG in 0.9 % Sodium Chloride 80 ML IVCONT (18:07)
[2024-04-10 18:18] LABS: Free T4 (Free Thyroxine) 1.17 ng/dL (0.71-1.85); Thyroid Stimulating Hormone 1.76 uIU/mL (0.32-4.0)
--- NOTE | 2024-04-10 18:24 | P.HPHOSP_ITS ---
History of Present Illness Date of Service: 04/10/24 Attending physician on admission: Kurt Galvin Chief Complaint: SOB, WEAVER Pt is an 83-year-old female with a PMH significant for?persistent AFib on Eliquis, sick sinus syndrome s/p pacemaker in place, HFpEF, and HTN who presents to the ED from Cardiology office for evaluation of SOB concerning for decompensated CHF exacerbation. Pt reports she has been getting progressively short of breath for the past 2 months and now has WEAVER with minimal activity. ?Also endorses weight gain, increased lower leg edema, occasional palpitations, and orthopnea where she now sleeps in a recliner. Per cardiology pt did not increase her home torsemide when noticed symptoms starting. Denies chest pain/pressure is. No cough. Denies fever, chills, nausea, vomiting, abdominal pain. In the ED pt with elevated BP of 96 and hypertensive to 185/103. Pt was ambulated to the bathroom and noted to be desatting into the 80s. Labs were significant for BNP 337, otherwise grossly unremarkable and around baseline for pt. No leukocytosis. Stable H&H. No significant electrolyte abnormalities. Renal and hepatic function WNL. Troponin negative. TSH and free T4 WNL. Tested negative for flu, COVID, RSV. CXR showed mild prominence of interstitial markings and subtle Richard B lines suggestion of mild CHF. EKG demonstrated AFib without evidence of significant ST elevations or depressions. Pt was treated in the ED with Lasix 60 mg IV and placed on a Lasix drip at 5 mg/hr. Pt will be admitted to the hospital for treatment and further evaluation of acute hypoxic respiratory failure in the setting of acute decompensated HFpEF exacerbation. Review of Systems 2 Review of Systems: Negative except for that which is stated in the HPI [facility] Medical History Persistent atrial fibrillation History of cardioversion Arthritis Sick sinus syndrome Cardiac pacemaker in situ (HFpEF) heart failure with preserved ejection fraction Hypertension TIA (transient ischemic attack) Wears dentures Wears hearing aid in both ears Hx of cardiac pacemaker Degenerative joint disease Peripheral venous insufficiency Transient cerebral ischemia Hearing loss Retinal artery occlusion Obstructive sleep apnea Obesity (BMI 30-39.9) Surgical History History of right hip replacement Hx of tubal ligation Hx laparoscopic cholecystectomy History of esophagogastroduodenoscopy (EGD) Hx of colonoscopy Status post ORIF of fracture of ankle (~1984) History of cataract surgery (~2016) Social History Are you a primary health care manager to a significant other at home: No Do you presently have visiting nurse or other home services: No Alcohol intake: never Patient Tobacco Use Status: Former Tobacco user Tobacco use type: Cigarette Smoked in Last 30 Days: No Use of substances other than those prescribed or required for medical reasons: No Advance Directives: Yes Advance Directives on File: Yes Advance Directives Date on File: 01/14/21 service: No Current occupational status: retired Current occupation: right handed Meds Allergies Allergy/AdvReac Type Severity Reaction Status Date / Time Seasonal Allergies Allergy Mild itching Verified 04/10/24 13:25 and sneezing Active Medications: Current Medications Furosemide 200 mg/ Sodium (Chloride) 100 mls @ 2.5 mls/hr IVCONT .Q24H TATIANA Last Admin: 04/10/24 18:07 Dose: 5 mg/hr, 2.5 mls/hr Home Medications ?Medication ?Instructions ?Recorded ?Confirmed ?Last Taken ?Type apixaban 5 mg tablet (Eliquis) 5 mg PO BID 10/12/20 04/10/24 04/10/24 History acetaminophen 325 mg tablet 650 mg PO Q6H PRN Pain 01/04/21 04/10/24 Unknown History (Tylenol) losartan 100 mg tablet 100 mg PO DAILY 03/03/22 04/10/24 04/10/24 History cholecalciferol (vitamin D3) 125 125 mcg PO DAILY 04/10/24 04/10/24 04/10/24 History mcg (5,000 unit) tablet (Vitamin D3) torsemide 5 mg tablet 2.5 mg PO DAILY 04/10/24 04/10/24 04/10/24 History vit C 250 mg-vit E 90 mg-zinc 40 1 tab PO BID 04/10/24 04/10/24 04/10/24 History mg-copper 1 [id number] capsule (PreserVision AREDS-2) Physical Exam 2 Vital Signs and Narrative: Vital Signs: Last Vital Signs Temp 98.0 F 04/10/24 15:41 Pulse 85 04/10/24 17:53 Resp 18 04/10/24 17:53 BP 185/103 H 04/10/24 18:07 Pulse Ox 98 04/10/24 17:53 O2 Del Method Nasal Cannula 04/10/24 17:53 O2 Flow Rate 2 04/10/24 17:53 BMI result Body Mass Index 39.1 General: AOx3, no acute distress Resp: CTA bilaterally CVS: Irregular irregular rhythm without murmurs, rubs, or gallops. GI: +BS, NT, no distention Skin: Warm, dry Neuro: Cranial nerves II-XII grossly intact bilaterally. Motor grossly intact bilaterally Extremities: 2+ bilateral pitting edema. Left leg with chronic venous stasis dermatitis. Psych: Appropriate affect Results Labs 04/10/24 14:15 04/10/24 14:15 Labs: Laboratory Results - last 24 hr 04/10/24 14:15 MCV 96.1 MCH 32.5 MCHC 33.8 RDW 13.2 Plt Count 197 MPV 10.0 Immature Gran % (Auto) 0.3 Neut % (Auto) 59.2 Lymph % (Auto) 28.4 [place] % (Auto) 8.8 Eos % (Auto) 2.5 Baso % (Auto) 0.8 Lymph # (Auto) 1.7 [place] # (Auto) 0.5 Eos # (Auto) 0.2 Baso # (Auto) 0.1 Abs Immat Gran (auto) 0.02 Absolute Neuts (auto) 3.5 Absolute Nucleated RBC 0.000 Nucleated RBC % (auto) 0.0 PT 17.6 H INR 1.5 H Anion Gap 11 L Estim Creat Clear Calc 54.6 Estimated GFR 58 Random Glucose 94 Calcium 8.5 D Total Bilirubin 0.7 AST 27 ALT 19 Alkaline Phosphatase 97 Troponin I High Sens < 2.7 B-Natriuretic Peptide 337 H Total Protein 7.2 Albumin 3.7 Lipase 24 TSH 1.76 Free T4 1.17 Influenza Type A (PCR) NEGATIVE Influenza Type B (PCR) NEGATIVE RSV RNA Qual (PCR) NEGATIVE SARS-CoV-2 RNA (RT-PCR) NEGATIVE Imaging Radiologist's Impressions: Impressions Chest X-Ray 04/10/24 13:24 IMPRESSION: 1. Dual-lead pacer with cardiac enlargement. 2. COPD without focal pneumonia seen. 3. Mild prominence of the interstitial markings with subtle Richard lines could suggest mild CHF. Electronically signed by: Sandro Alas MD 04/10/2024 02:13 [place] [facility] [place] (1) Acute exacerbation of chronic heart failure: Status: Acute (2) Hypoxia: Status: Acute Plan Pt is an 83-year-old female with a PMH significant for?persistent AFib on Eliquis, sick sinus syndrome s/p pacemaker in place, HFpEF, and HTN who presents to the ED from Cardiology office for evaluation of SOB concerning for decompensated CHF exacerbation. Pt will be admitted to the hospital for treatment and further evaluation of acute hypoxic respiratory failure in the setting of acute decompensated HFpEF exacerbation. Acute hypoxic respiratory failure in setting of acute decompensated HFpEF exacerbation Pt with increased SOB, WEAVER, LLE, elevated BNP, CXR showing pulmonary edema, desatting into the 80s with ambulation Likely secondary to persistent AFib and inadequate diuresis Continue Lasix drip at 5 mg/hr Echocardiogram Monitor I/O, daily weights, lytes/BNP Continue Jardiance Low-salt diet Cardiology consult Titrate supplemental O2 >92, wean as tolerated Monitor on telemetry Persistent AFib Continue metoprolol, Eliquis HTN Continue losartan Sick sinus syndrome Pacemaker in situ Full Code Attending:? DVT Prophylaxis: Lovenox Pt will require a hospitalization of at least two nights for treatment of?acute hypoxic respiratory failure in setting of acute decompensated HFpEF exacerbation requiring placement on a Lasix drip, as well as administration supplemental oxygen, additional workup with echocardiogram, and specialist consultation with Cardiology. . Quality Stroke Does the patient have a stroke diagnosis?: No VTE Prior VTE?: No VTE Risk Level:: Medical - moderate - high VTE Device Contraindication: Treatment Not Indicated VTE Drug Contraindication: N/A - Med Ordered
--- NOTE | 2024-04-10 18:43 | PHA.MEDREC ---
Addendum entered by Leonila Biggs RPh 04/10/24 18:56: reviewed by [facility] Original Note: Pharmacy Consult ? Medication Reconciliation Pharmacy has completed the medication reconciliation. Spoke to patient to confirm med list. Patient was able to tell me what medications she take. Patient states she is taking Torsemide 2.5 mg daily, however there are no claims. Patient last took her medications today in the morning.
--- OUTSIDE RECORDS SUMMARY | 2024-04-10 19:25 | XMS_ITS | Data Portability ---
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 Name Role Phone MERT MARTINEZ Primary Care Provide r [facility] [employer] Manufacturing Technician LUMA ROBLEDO Lead Cook [facility] Industrial Hygienist EVELYNE MIRELES Senior Linux Unix Engineer SLEEP MEDICINE SERVICES Sleep Medicine JOSE ARCEO Neurologist PRICILLA DURANT Factory Expert ELIZA CARLISLE Lead Cook JOSE GUZMAN General Surgeon [facility] Lead Cook Assessment Encounter Date Assessment Date Assessment LastModified by Organization Details LastModified Time 02/13/2023 02/13/2023 We completed your Medicare Wellness exam today. This was an opportunity to assess your overall well being including your ability to care for yourself, your mobility, memory, mental health, as well as your safety. With advancing age, it is important to assign someone in your life as your Health Care Proxy (HCP). This person should know what is important to you and what your wishes are for medical procedures if you cannot communicate your wishes yourself (severe illness, unconsciousness) . We discussed having a completed Health Care Proxy form today. In addition, today we started a conversation about your End of Life wishes. These conversations will continue over the years. Please consider reading the book, Being Mortal by Cliff Rodriguez to help frame future conversations. We discussed the purpose of a MOLST form (Medical Orders for Life Sustaining Treatment) and completed this form if appropriate per your wishes. Vision and Hearing are senses that are critically important as we age. When impaired, they can contribute to memory loss, falls, and make it harder to drive, talk to family and friends, and engage in the world. Please get your vision checked yearly and your hearing checked when you start to notice hearing loss. We discussed approaches to lowering your risk of heart disease and stroke . Your blood pressure . Your cholesterol . We discussed cancer screening you may need as well as vaccines to prevent infections. Colon Cancer : Your risk of colon cancer is . Due for colorectal screening:. If you are not planning to have a colonoscopy please screen with stool cards yearly. Breast Cancer : Breast Cancer Screening (mammography). Next mammogram due: . Cervical Cancer Screening (pap test). Next pap due: . Influenza Vaccine : Flu shot yearly. Tetanus Vaccine : Every 10 years. Due: . The following vaccines are available from your pharmacy: Pneumonia Vaccine : PCV20: once after age 65. Shingles Vaccine : 2 shots after age 50. Covid Vaccine : Make sure you have received the most up to date covid vaccine. Your personal health goal for the year is: [email or web address] Not available 02/13/2023 07:46:27 Plan of Treatment Reminders Order Date Submit Date Provider Last Modified By Organization Details Last Modified Time Details Appointments NO[facility] Phone Call 2024 10:00A M Ehcnoac Not available Not available Not available LAB Follow-Up 2024 10:00A M C Lab Not available Not available Not available Medical Managemen t 15 2024 09:15A M Mert Yin MD Not available Not available Not available Lab HbA1c (hemoglob in A1c), blood 2022 024 [facility], [address] [place] [address], [id number], 08/09/2023 16:15:20 HbA1c (hemoglob in A1c), blood 2022 024 [facility], [address] [place] [address], [id number], 03/19/2023 11:30:16 TSH, serum or plasma 2022 024 [facility], [address] [place] [address], [id number], 03/19/2023 15:59:46 TSH, serum or plasma 2023 024 [facility], [address] [place] [address], [id number], 02/12/2024 11:54:47 T4, free, serum 2023 024 [facility], [address] [place] [address], [id number], 02/11/2024 16:17:45 CBC 2023 024 [facility], [address] [place] [address], [id number], 11/16/2023 12:16:31 urinalysi s, dipstick [address] [facility], [address] [place] [address], [id number], 01/16/2024 16:44:36 HbA1c (hemoglob in A1c), blood 2023 024 [facility], [address] [place] [address], [id number], 02/15/2024 14:07:16 Referral dermatolo gist referral - lesion on left side of cheek, started out crusty and not healing now x 1 week, photo enclosed pls call pt for appt TY 2022 023 [email or web address] Pricilla Durant MD, [address], [place], [address], 02/15/2023 10:40:41 Procedures None recorded. Surgeries None recorded. Imaging None recorded. Medication Orders levothyro xine 25 mcg tablet 2022 023 [id number], [address], [place], [id number], 08/16/2023 09:35:53 Bactrim DS 800 mg-160 mg tablet 2023 024 [facility], [address] [place], [id number], 02/15/2024 09:40:52 Patient TargetsNo targets recorded. Patient Instructions Encounter Date Encounter Id Patient Instructions Last Modified By Organization Details Last Modified Time 01/26/2023 [id number] After a discussi on of treatment and medication options, which included consideration of the best practices in medicine, a medical plan was provided. The patient's opinions and concerns were included in this treatment plan and goal. New medication was discussed with patient including risks, benefits ,possible and expected side effects. Patient understands and is willing to begin medication as prescribed. 1. will send this note to Dr Carlisle 2. started on levothyroxine, TSH not in range, was checked yearly while on amiodarone. Will start with lowest dose levothyroxine, 25 mcg daily and recheck in 2 months. HTN - at goal of less than 130/80 per the AHA guidelines. Continue meds and f/u in 6 mos. Discussed labs, electrolytes normal. Fasting sugar slightly elevated, kidney function decreased but stable. CKD 3 - will recheck in 6 months, prediabetes - A1c in Mar at 6.0% A fib - tolerating Eliquis. Continue low salt diet of less than 1500 mg of sodium per day. The [place] [employer] (AHA) recommends 30 minutes of moderate physical activity 5 days a week. A Mediterranean type of diet and a plant based diet is recommended, review the website: [employer]org. For any changes in your medication regimen, please call in the interim if with any intolerance to the medication. [email or web address] Not available 01/28/2023 19:48:09 02/13/2023 [id number] advance directiv es: care instructions [email or web address] Not available 02/13/2023 09:21:11 preventing falls : care instructions [email or web address] Not available 02/13/2023 09:21:11 hearing loss: ca re instructions [email or web address] Not available 02/13/2023 09:21:11 well visit, over 65: care instructions hui Not available 02/13/2023 09:21:11 After a discussi on of treatment and medication options, which included consideration of the best practices in medicine, a medical plan was provided. The patient's opinions and concerns were included in this treatment plan and goal. * Maintain 1200 mg of calcium from food sources daily, * Take vitamin D 0262-1059 units daily to help absorption of calcium into your bones * Use sunblock consistently * Review the website: [employer] to get more information on the Mediterranean diet - a heart healthy eating plan * Immunizations up to date; COVID vaccine booster recommended. Please get your Shingrix at the pharmacy. * The current guidelines from the [place] [employer] is moderate aerobic physical activity about 30 minutes for 5 days of the week. Walking at a moderately fast pace, as tolerated. Try to build muscle mass. This will help maintain bone strength and support your joints. * Pap smear not indicated due to age. * Mammogram guidelines discussed, not indicated due to age. * Your bone density is osteopenia in 2020. Continue dance class every Sunday at [employer]. * Colonoscopy is not indicated due to age. * Health care proxy discussed and no changes. * MOLST form discussed. No changes. * Wellness Visit in 1 year * See your dentist at least twice a year. * Get your vision checked at least once every 2 years. 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 Tolerating levothyroxine well. HTN - at goal of less than 130/80 per the AHA guidelines. Continue meds and f/u in 6 mos. Discussed labs, electrolytes normal. prediabetes - A1c in Mar 2022 at 6% - will recheck in Mar with TSH. Advised to limit simple carbohydrates. Continue low salt diet of less than 1500 mg of sodium per day. The [place] [employer] (AHA) recommends 30 minutes of moderate physical activity 5 days a week. A Mediterranean type of diet and a plant based diet is recommended, review the website: [employer] Post. follows Dr Carlisle; placed pt on Jardiance for cardioprotection Atrial fib - tolerating DOAC osteoarthritis - on duloxetine for chronic pain pt declined PHQ-9 and alcohol screening [email or web address] Not available 02/14/2023 10:06:33 08/16/2023 [id number] [facility] serves as the focal point for all health care services the patient needs. [email or web address] Not available 08/16/2023 10:14:13 02/15/2024 [id number] Per Uptodate: frequent washing and vaginal douching are not helpful and can be harmful. Excessive soaping of the genital area can cause a chemical v? ? ?lviti? ? and douching (rinsing of the vagina with vinegar or an antiseptic with the aid of a douche bag) can increase the risk of vaginal and pelvic infection. TSH consistently normal; off amiodarone, no need to recheck yearly, unless with symptoms hui Not available 02/16/2024 09:54:25 Reason for Referral Factory Expert Referral for L esion of skin of face lesion on left side of cheek, started out crusty and not healing now x 1 week, photo enclosed pls call pt for appt TY Referring Physician: Mert Yin, Family Medicine, Encounter Date: 02/13/2023 Results Created Date Observation Date Name Description Value Unit Range Abnormal Flag Note LastModifiedBy Organization Detail LastModifiedTime 01/23/2001/22/2023 BASIC METAB OLIC PANEL glucose 118 mg/dL 70-100 high Not Available [address], [address], 01/22/2023 16:38:59 01/23/20 23 01/22/2023 BASIC METAB OLIC PANEL BUN 21 mg/dL 7-18 high Not Available [address], [address], 01/22/2023 16:38:59 01/23/20 23 01/22/2023 BASIC METAB OLIC PANEL creatinine 1.0 mg/dL 0.8-1. 3 Not Available [address], [address], 01/22/2023 16:38:59 01/23/20 23 01/22/2023 BASIC METAB OLIC PANEL B/C 21.0 ratio Not Available [address], [address], 01/22/2023 16:38:59 01/23/20 23 01/22/2023 BASIC METAB OLIC PANEL GFR 56.6 mL/mi n abnormal >=60m L/min - Crystal l or midly reduc ed <60mL /min- Decre ased kidne y funct ion <15mL /min - Kidne y failu re [facility] calcu lates estim ated Glome rular Filtr ation Rate (eGFR ) using the Chron ic Kidne y Disea se Epide miolo gy Colla borat ion (CKD- EPI) Equat ion (Dagoberto molina et. al 2020) as recom berkley d by the Natio nal Kidne y Found ation . eGFR is based on age, serum creat inine , and sex. CKD-E PI does not calcu late eGFR by race, does not apply to child nupur (age <18 years ), and shoul d not be used in pregn jan. Not Available [address], [address], 01/22/2023 16:38:59 01/23/20 23 01/22/2023 BASIC METAB OLIC PANEL sodium 142 mmol/ L 136-14 5 Not Available [address], [address], 01/22/2023 16:38:59 01/23/20 23 01/22/2023 BASIC METAB OLIC PANEL potassium 4.9 mmol/ L 3.5-5. 1 Not Available [address], [address], 01/22/2023 16:38:59 01/23/20 23 01/22/2023 BASIC METAB OLIC PANEL chloride 103 mmol/ L 96-107 Not Available [address], [address], 01/22/2023 16:38:59 01/23/20 23 01/22/2023 BASIC METAB OLIC PANEL anion gap 9.6 5.0-15 .0 Not Available [address], [address], 01/22/2023 16:38:59 01/23/20 23 01/22/2023 BASIC METAB OLIC PANEL CO2 29 mmol/ L 21-32 Not Available [address], [address], 01/22/2023 16:38:59 01/23/20 23 01/22/2023 BASIC METAB OLIC PANEL calcium 8.9 mg/dL 8.5-10 .3 Not Available [address], [address], 01/22/2023 16:38:59 01/23/20 23 01/26/2023 TSH TSH 7.92 uIU/m L 0.50-6 .00 high The Ameri can Colle ge of Endoc rinol ogy and Ameri can Thyro id Assoc iatio n recom mend goal TSH value s betwe en 0.4-4 .0 mIU/m L. Not Available [address], [address], 01/26/2023 08:42:04 03/19/19 24 03/19/2023 HGB A1C hemoglobin A1C 6.2 % 4.8-6. 0 high Goal: <7% in Patie nts with Diabe sunil An A1c betwe en 5.7-6 .4% is ident ified as pre-d iabet es and sugge sts risk for progr essio n to diabe sunil Two a1c value s of 6.5% or highe r is consi stent with a diagn osis of diabe sunil but may need furth er confi rmati on Not Available [address], [address], 03/19/2023 11:30:16 03/19/19 24 03/19/2023 HGB A1C estimated average glucose 131.2 mg/dL Not Available [address], [address], 03/19/2023 11:30:16 03/19/19 24 03/19/2023 COMP. METAB OLIC PANEL glucose 100 mg/dL 70-100 Not Available [address], [address], 03/19/2023 14:08:31 03/19/19 24 03/19/2023 COMP. METAB OLIC PANEL BUN 22 mg/dL 7-18 high Not Available [address], [address], 03/19/2023 14:08:31 03/19/19 24 03/19/2023 COMP. METAB OLIC PANEL creatinine 1.0 mg/dL 0.8-1. 3 Not Available [address], [address], 03/19/2023 14:08:31 03/19/19 24 03/19/2023 COMP. METAB OLIC PANEL B/C 22.0 ratio Not Available [address], [address], 03/19/2023 14:08:31 03/19/19 24 03/19/2023 COMP. METAB OLIC PANEL GFR 56.6 mL/mi n abnormal >=60m L/min - Crystal l or midly reduc ed <60mL /min- Decre ased kidne y funct ion <15mL /min - Kidne y failu re Rodriguez y [facility] al Group calcu lates estim ated Glome rular Filtr ation Rate (eGFR ) using the Chron ic Kidne y Disea se Epide miolo gy Colla borat ion (CKD- EPI) Equat ion (Dagoberto r et. al 2020) as recom berkley d by the Natio nal Kidne y Found ation . eGFR is based on age, serum creat inine , and sex. CKD-E PI does not calcu late eGFR by race, does not apply to child nupur (age <18 years ), and shoul d not be used in pregn jan. Not Available [address], [address], 03/19/2023 14:08:31 03/19/19 24 03/19/2023 COMP. METAB OLIC PANEL sodium 139 mmol/ L 136-14 5 Not Available [address], [address], 03/19/2023 14:08:31 03/19/19 24 03/19/2023 COMP. METAB OLIC PANEL potassium 4.8 mmol/ L 3.5-5. 1 Not Available [address], [address], 03/19/2023 14:08:31 03/19/19 24 03/19/2023 COMP. METAB OLIC PANEL chloride 101 mmol/ L 96-107 Not Available [address], [address], 03/19/2023 14:08:31 03/19/19 24 03/19/2023 COMP. METAB OLIC PANEL anion gap 10.7 5.0-15 .0 Not Available [address], [address], 03/19/2023 14:08:31 03/19/19 24 03/19/2023 COMP. METAB OLIC PANEL CO2 27 mmol/ L 21-32 Not Available [address], [address], 03/19/2023 14:08:31 03/19/19 24 03/19/2023 COMP. METAB OLIC PANEL calcium 8.5 mg/dL 8.5-10 .3 Not Available [address], [address], 03/19/2023 14:08:31 03/19/19 24 03/19/2023 COMP. METAB OLIC PANEL total protein 6.6 g/dL 6.4-8. 2 Not Available [address], [address], 03/19/2023 14:08:31 03/19/19 24 03/19/2023 COMP. METAB OLIC PANEL albumin 3.2 g/dL 3.4-5. 0 low Not Available [address], [address], 03/19/2023 14:08:31 03/19/19 24 03/19/2023 COMP. METAB OLIC PANEL globulin 3.4 g/dL Not Available [address], [address], 03/19/2023 14:08:31 03/19/19 24 03/19/2023 COMP. METAB OLIC PANEL A/G 0.9 ratio 0.8-2. 0 Not Available [address], [address], 03/19/2023 14:08:31 03/19/19 24 03/19/2023 COMP. METAB OLIC PANEL total bilirubin 0.50 mg/dL 0.00-1 .00 Not Available [address], [address], 03/19/2023 14:08:31 03/19/19 24 03/19/2023 COMP. METAB OLIC PANEL AST 25 U/L 0-37 Not Available [address], [address], 03/19/2023 14:08:31 03/19/19 24 03/19/2023 COMP. METAB OLIC PANEL ALT 29 U/L 6-63 Not Available [address], [address], 03/19/2023 14:08:31 03/19/19 24 03/19/2023 COMP. METAB OLIC PANEL alk. phos. 137 U/L 50-136 high Not Available [address], [address], 03/19/2023 14:08:31 03/19/19 24 03/19/2023 TSH TSH 6.67 uIU/m L 0.50-6 .00 high The Ameri can Colle ge of Endoc rinol ogy and Ameri can Thyro id Assoc iatio n recom mend goal TSH value s betwe en 0.4-4 .0 mIU/m L. Not Available [address], [address], 03/19/2023 15:59:46 08/09/19 24 08/09/2023 CBC WBC 5.41 K/? ? ?L 3.98-1 0.04 Not Available [address], [address], 08/09/2023 12:33:49 08/09/19 24 08/09/2023 CBC RBC 5.36 M/? ? ?L 3.93-5 .22 high Not Available [address], [address], 08/09/2023 12:33:49 08/09/19 24 08/09/2023 CBC HGB 17.0 g/dL 11.2-1 5.7 high Not Available [address], [address], 08/09/2023 12:33:49 08/09/19 24 08/09/2023 CBC HCT 51.6 % 34.1-4 4.9 high Not Available [address], [address], 08/09/2023 12:33:49 08/09/19 24 08/09/2023 CBC MCV 96.3 fL 79.4-9 4.8 high Not Available [address], [address], 08/09/2023 12:33:49 08/09/19 24 08/09/2023 CBC MCH 31.7 pg 25.6-3 2.2 Not Available [address], [address], 08/09/2023 12:33:49 08/09/19 24 08/09/2023 CBC MCHC 32.9 g/dL 32.2-3 5.5 Not Available [address], [address], 08/09/2023 12:33:49 08/09/19 24 08/09/2023 CBC plt 232 K/? ? ?L 182-36 9 Not Available [address], [address], 08/09/2023 12:33:49 08/09/19 24 08/09/2023 CBC MPV 10.6 fL 9.4-12 .3 Not Available [address], [address], 08/09/2023 12:33:49 08/09/19 24 08/09/2023 CBC neut% 61.0 % 34.0-7 1.1 Not Available [address], [address], 08/09/2023 12:33:49 08/09/19 24 08/09/2023 CBC neut# 3.30 1.56-6 .13 Not Available [address], [address], 08/09/2023 12:33:49 08/09/19 24 08/09/2023 CBC lymph % 27.2 % 19.3-5 1.7 Not Available [address], [address], 08/09/2023 12:33:49 08/09/19 24 08/09/2023 CBC lymph # 1.47 K/? ? ?L 1.18-3 .74 Not Available [address], [address], 08/09/2023 12:33:49 08/09/19 24 08/09/2023 CBC mono% 8.5 % 4.7-12 .5 Not Available [address], [address], 08/09/2023 12:33:49 08/09/19 24 08/09/2023 CBC mono# 0.46 0.24-0 .56 Not Available [address], [address], 08/09/2023 12:33:49 08/09/19 24 08/09/2023 CBC eo% 2.0 % 0.7-5. 8 Not Available [address], [address], 08/09/2023 12:33:49 08/09/19 24 08/09/2023 CBC eo# 0.11 0.04-0 .36 Not Available [address], [address], 08/09/2023 12:33:49 08/09/19 24 08/09/2023 CBC baso% 0.9 % 0.1-1. 2 Not Available [address], [address], 08/09/2023 12:33:49 08/09/19 24 08/09/2023 CBC baso# 0.05 0.00-0 .08 Not Available [address], [address], 08/09/2023 12:33:49 08/09/19 24 08/09/2023 CBC RDW-CV 13.6 % 11.7-1 4.4 Not Available [address], [address], 08/09/2023 12:33:49 08/09/19 24 08/09/2023 CBC Ig% 0.400 % 0.000- 1.500 Ig % >0.5 Indic ates possi ble Left Shift Not Available [address], [address], 08/09/2023 12:33:49 08/09/19 24 08/09/2023 CBC Ig# 0.020 0.000- 0.093 Not Available [address], [address], 08/09/2023 12:33:49 08/09/19 24 08/09/2023 CBC NRBC% 0.0 % 0.0-0. 2 Not Available [address], [address], 08/09/2023 12:33:49 08/09/19 24 08/09/2023 CBC NRBC# 0.000 0.000- 0.012 Not Available [address], [address], 08/09/2023 12:33:49 08/09/19 24 08/09/2023 COMP. METAB OLIC PANEL glucose 106 mg/dL 70-100 high Not Available [address], [address], 08/09/2023 14:47:55 08/09/19 24 08/09/2023 COMP. METAB OLIC PANEL BUN 20 mg/dL 7-18 high Not Available [address], [address], 08/09/2023 14:47:55 08/09/19 24 08/09/2023 COMP. METAB OLIC PANEL creatinine 0.9 mg/dL 0.8-1. 3 Not Available [address], [address], 08/09/2023 14:47:55 08/09/19 24 08/09/2023 COMP. METAB OLIC PANEL B/C 22.2 ratio Not Available [address], [address], 08/09/2023 14:47:55 08/09/19 24 08/09/2023 COMP. METAB OLIC PANEL GFR >=60ML /MIN mL/mi n normal >=60m L/min - Crystal l or midly reduc ed <60mL /min- Decre ased kidne y funct ion <15mL /min - Kidne y failu re [facility] al [facility] calcu lates estim ated Glome rular Filtr ation Rate (eGFR ) using the Chron ic Kidne y Disea se Epide miolo gy Colla borat ion (CKD- EPI) Equat ion (Dagoberto molina et. al 2020) as recom berkley d by the Natio nal Kidne y Found ation . eGFR is based on age, serum creat inine , and sex. CKD-E PI does not calcu late eGFR by race, does not apply to child nupur (age <18 years ), and shoul d not be used in pregn jan. Not Available [address], [address], 08/09/2023 14:47:55 08/09/19 24 08/09/2023 COMP. METAB OLIC PANEL sodium 141 mmol/ L 136-14 5 Not Available [address], [address], 08/09/2023 14:47:55 08/09/19 24 08/09/2023 COMP. METAB OLIC PANEL potassium 4.7 mmol/ L 3.5-5. 1 Not Available [address], [address], 08/09/2023 14:47:55 08/09/19 24 08/09/2023 COMP. METAB OLIC PANEL chloride 101 mmol/ L 96-107 Not Available [address], [address], 08/09/2023 14:47:55 08/09/19 24 08/09/2023 COMP. METAB OLIC PANEL anion gap 11.4 5.0-15 .0 Not Available [address], [address], 08/09/2023 14:47:55 08/09/19 24 08/09/2023 COMP. METAB OLIC PANEL CO2 29 mmol/ L 21-32 Not Available [address], [address], 08/09/2023 14:47:55 08/09/19 24 08/09/2023 COMP. METAB OLIC PANEL calcium 8.9 mg/dL 8.5-10 .3 Not Available [address], [address], 08/09/2023 14:47:55 08/09/19 24 08/09/2023 COMP. METAB OLIC PANEL total protein 6.7 g/dL 6.4-8. 2 Not Available [address], [address], 08/09/2023 14:47:55 08/09/19 24 08/09/2023 COMP. METAB OLIC PANEL albumin 3.2 g/dL 3.4-5. 0 low Not Available [address], [address], 08/09/2023 14:47:55 08/09/19 24 08/09/2023 COMP. METAB OLIC PANEL globulin 3.5 g/dL Not Available [address], [address], 08/09/2023 14:47:55 08/09/19 24 08/09/2023 COMP. METAB OLIC PANEL A/G 0.9 ratio 0.8-2. 0 Not Available [address], [address], 08/09/2023 14:47:55 08/09/19 24 08/09/2023 COMP. METAB OLIC PANEL total bilirubin 0.70 mg/dL 0.00-1 .00 Not Available [address], [address], 08/09/2023 14:47:55 08/09/19 24 08/09/2023 COMP. METAB OLIC PANEL AST 28 U/L 0-37 Not Available [address], [address], 08/09/2023 14:47:55 08/09/19 24 08/09/2023 COMP. METAB OLIC PANEL ALT 35 U/L 6-63 Not Available [address], [address], 08/09/2023 14:47:55 08/09/19 24 08/09/2023 COMP. METAB OLIC PANEL alk. phos. 107 U/L 50-136 Not Available [address], [address], 08/09/2023 14:47:55 08/09/19 24 08/09/2023 LIPID PANEL cholesterol 201 mg/dL <200 mg/dl Aries able 200-2 39 mg/dl Borde rline High >240 mg/dl High Not Available [address], [address], 08/09/2023 14:47:56 08/09/19 24 08/09/2023 LIPID PANEL triglyceride s 93 mg/dL <150 mg/dL Crystal l 150-1 99 mg/dL Borde rline High 200-4 99 mg/dL High >500 mg/dL Very High Not Available [address], [address], 08/09/2023 14:47:56 08/09/19 24 08/09/2023 LIPID PANEL direct HDL 59 mg/dL <40 mg/dl - Major Risk for CHD >60 mg/dl - Negat kavya Risk for CHD Not Available [address], [address], 08/09/2023 14:47:56 08/09/19 24 08/09/2023 DIREC T LDL direct LDL 119 mg/dL RISK CATEG ORY LDL GOAL _ CHD or CHD Risk Equiv alent s <100 mg/dl (10-y ear risk >20%) 2+ Risk Facto rs <130 mg/dl (10-y ear risk <= 20%) 0-1 Risk Facto r? <160 mg/dl ? Almos t all peopl e with 0-1 risk facto r have a 10 year risk <10%, thus 10 year risk asses ment in peopl e with 0-1 risk facto r is not baltazar grimaldo. Not Available [address], [address], 08/09/2023 14:47:57 08/09/19 24 08/09/2023 TSH TSH 3.91 uIU/m L 0.50-6 .00 The Ameri can Colle ge of Endoc rinol ogy and Ameri can Thyro id Assoc iatio n recom mend goal TSH value s betwe en 0.4-4 .0 mIU/m L. Not Available [address], [address], 08/09/2023 15:34:17 08/09/19 24 08/09/2023 HGB A1C hemoglobin A1C 6.1 % 4.8-6. 0 high Goal: <7% in Patie nts with Diabe sunil An A1c betwe en 5.7-6 .4% is ident ified as pre-d iabet es and sugge sts risk for progr essio n to diabe sunil Two a1c value s of 6.5% or highe r is consi stent with a diagn osis of diabe sunil but may need furth er confi rmati on Not Available [address], [address], 08/09/2023 16:15:20 08/09/19 24 08/09/2023 HGB A1C estimated average glucose 128.4 mg/dL Not Available [address], [address], 08/09/2023 16:15:20 11/16/19 24 11/16/2023 CBC WBC 6.01 K/? ? ?L 3.98-1 0.04 Not Available [address], [address], 11/16/2023 12:16:31 11/16/19 24 11/16/2023 CBC RBC 5.06 M/? ? ?L 3.93-5 .22 Not Available [address], [address], 11/16/2023 12:16:31 11/16/19 24 11/16/2023 CBC HGB 16.5 g/dL 11.2-1 5.7 high Not Available [address], [address], 11/16/2023 12:16:31 11/16/1911/16/2023 CBC HCT 49.2 % 34.1-4 4.9 high Not Available [address], [address], 11/16/2023 12:16:31 11/16/1911/16/2023 CBC MCV 97.2 fL 79.4-9 4.8 high Not Available [address], [address], 11/16/2023 12:16:31 11/16/19 24 11/16/2023 CBC MCH 32.6 pg 25.6-3 2.2 high Not Available [address], [address], 11/16/2023 12:16:31 11/16/19 24 11/16/2023 CBC MCHC 33.5 g/dL 32.2-3 5.5 Not Available [address], [address], 11/16/2023 12:16:31 11/16/1911/16/2023 CBC plt 210 K/? ? ?L 182-36 9 Not Available [address], [address], 11/16/2023 12:16:31 11/16/19 24 11/16/2023 CBC MPV 10.4 fL 9.4-12 .3 Not Available [address], [address], 11/16/2023 12:16:31 11/16/19 24 11/16/2023 CBC neut% 57.0 % 34.0-7 1.1 Not Available [address], [address], 11/16/2023 12:16:31 11/16/19 24 11/16/2023 CBC neut# 3.42 1.56-6 .13 Not Available [address], [address], 11/16/2023 12:16:31 11/16/19 24 11/16/2023 CBC lymph % 30.3 % 19.3-5 1.7 Not Available [address], [address], 11/16/2023 12:16:31 11/16/19 24 11/16/2023 CBC lymph # 1.82 K/? ? ?L 1.18-3 .74 Not Available [address], [address], 11/16/2023 12:16:31 11/16/19 24 11/16/2023 CBC mono% 9.8 % 4.7-12 .5 Not Available [address], [address], 11/16/2023 12:16:31 11/16/19 24 11/16/2023 CBC mono# 0.59 0.24-0 .56 high Not Available [address], [address], 11/16/2023 12:16:31 11/16/19 24 11/16/2023 CBC eo% 1.8 % 0.7-5. 8 Not Available [address], [address], 11/16/2023 12:16:31 11/16/19 24 11/16/2023 CBC eo# 0.11 0.04-0 .36 Not Available [address] [place], [address], 11/16/2023 12:16:31 11/16/19 24 11/16/2023 CBC baso% 0.8 % 0.1-1. 2 Not Available [address], [address], 11/16/2023 12:16:31 11/16/19 24 11/16/2023 CBC baso# 0.05 0.00-0 .08 Not Available [address], [address], 11/16/2023 12:16:11/16/1911/16/2023 CBC RDW-CV 13.5 % 11.7-1 4.4 Not Available [address], [address], 11/16/2023 12:16:11/16/1911/16/2023 CBC Ig% 0.300 % 0.000- 1.500 Ig % >0.5 Indic ates possi ble Left Shift Not Available [address], [address], 11/16/2023 12:16:31 11/16/1911/16/2023 CBC Ig# 0.020 0.000- 0.093 Not Available [address], [address], 11/16/2023 12:16:31 11/16/1911/16/2023 CBC NRBC% 0.0 % 0.0-0. 2 Not Available [address], [address], 11/16/2023 12:16:31 11/16/1911/16/2023 CBC NRBC# 0.000 0.000- 0.012 Not Available [address], [address], 11/16/2023 12:16:31 11/16/1911/19/2023 TSH TSH 2.54 uIU/m L 0.50-6 .00 The Ameri can Colle ge of Endoc rinol ogy and Concha can Thyro id Assoc iatio n recom mend goal TSH value s betwe en 0.4-4 .0 mIU/m L. Not Available [address], [address], 11/19/2023 10:41:45 01/16/20 24 01/16/2024 POC UA glu UA 2+ abnormal Not Available [facility] [address] [place] [address], [address], 01/16/2024 15:50:12 01/16/20 24 01/16/2024 POC UA clarity UA SLIGHT LY CLOUDY Not Available [facility] [address] [place] [address], [address], 01/16/2024 15:50:12 01/16/20 24 01/16/2024 POC UA uro UA 0.2000 Not Available [facility] [address] [place] [address], [address], 01/16/2024 15:50:12 01/16/20 24 01/16/2024 POC UA ket UA NEGATI VE Not Available [facility] [address] [place] [address], [address], 01/16/2024 15:50:12 01/16/20 24 01/16/2024 POC UA pro UA NEGATI VE Not Available [facility] [address] [place] [address], [address], 01/16/2024 15:50:12 01/16/20 24 01/16/2024 POC UA nit UA NEGATI VE Not Available [facility] [address] [place] [address], [address], 01/16/2024 15:50:12 01/16/20 24 01/16/2024 POC UA walter UA 1+ abnormal Not Available [facility] [address] [place] [address], [address], 01/16/2024 15:50:12 01/16/20 24 01/16/2024 POC UA pH UA 6.0000 Not Available [facility] [address] [place] [address], [address], 01/16/2024 15:50:12 01/16/20 24 01/16/2024 POC UA SG UA 1.0250 Not Available [facility] [address] [place] [address], [address], 01/16/2024 15:50:12 01/16/20 24 01/16/2024 POC UA color UA YELLOW Not Available [facility] [address] [place] [address], [address], 01/16/2024 15:50:12 01/16/20 24 01/16/2024 POC UA blo UA NEGATI VE Not Available [facility] [address] [place] [address], [address], 01/16/2024 15:50:12 01/16/20 24 01/16/2024 POC UA cassi UA NEGATI VE Not Available [facility] [address] [place] [address], [address], 01/16/2024 15:50:12 02/11/20 24 02/11/2024 FREE T4 free T4 1.32 NG/dL 0.75-1 .54 Not Available [address], [address], 02/11/2024 16:17:45 02/11/20 24 02/12/2024 TSH TSH 2.66 uIU/m L 0.50-6 .00 The Ameri can Colle ge of Endoc rinol ogy and Ameri can Thyro id Assoc iatio n recom mend goal TSH value s betwe en 0.4-4 .0 mIU/m L. Not Available [address], [address], 02/12/2024 11:54:47 02/11/20 24 02/12/2024 BASIC METAB OLIC PANEL glucose 149 mg/dL 70-100 high Not Available [address], [address], 02/12/2024 15:54:18 02/11/20 24 02/12/2024 BASIC METAB OLIC PANEL BUN 17 mg/dL 7-18 Not Available [address], [address], 02/12/2024 15:54:18 02/11/20 24 02/12/2024 BASIC METAB OLIC PANEL creatinine 1.0 mg/dL 0.8-1. 3 Not Available [address], [address], 02/12/2024 15:54:18 02/11/20 24 02/12/2024 BASIC METAB OLIC PANEL B/C 17.0 ratio Not Available [address], [address], 02/12/2024 15:54:18 02/11/20 24 02/12/2024 BASIC METAB OLIC PANEL GFR 56.2 mL/mi n abnormal >=60m L/min - Crystal l or midly reduc ed <60mL /min- Decre ased kidne y funct ion <15mL /min - Kidne y failu re [facility] calcu lates estim ated Glome rular Filtr ation Rate (eGFR ) using the Chron ic Kidne y Disea se Epide miolo gy Colla borat ion (CKD- EPI) Equat ion (Dagoberto r et. al 2020) as recom berkley d by the Natio nal Kidne y Found ation . eGFR is based on age, serum creat inine , and sex. CKD-E PI does not calcu late eGFR by race, does not apply to child nupur (age <18 years ), and shoul d not be used in pregn jan. Not Available [address], [address], 02/12/2024 15:54:18 02/11/20 24 02/12/2024 BASIC METAB OLIC PANEL sodium 141 mmol/ L 136-14 5 Not Available [address], [address], 02/12/2024 15:54:18 02/11/20 24 02/12/2024 BASIC METAB OLIC PANEL potassium 5.0 mmol/ L 3.5-5. 1 Not Available [address], [address], 02/12/2024 15:54:18 02/11/20 24 02/12/2024 BASIC METAB OLIC PANEL chloride 105 mmol/ L 96-107 Not Available [address], [address], 02/12/2024 15:54:18 02/11/20 24 02/12/2024 BASIC METAB OLIC PANEL anion gap 8.4 5.0-15 .0 Not Available [address], [address], 02/12/2024 15:54:18 02/11/20 24 02/12/2024 BASIC METAB OLIC PANEL CO2 28 mmol/ L 21-32 Not Available [address], [address], 02/12/2024 15:54:18 02/11/20 24 02/12/2024 BASIC METAB OLIC PANEL calcium 8.8 mg/dL 8.5-10 .3 Not Available [address], [address], 02/12/2024 15:54:18 02/11/20 24 02/12/2024 LIPID PANEL cholesterol 188 mg/dL <200 mg/dl Aries able 200-2 39 mg/dl Borde rline High >240 mg/dl High Not Available [address], [address], 02/12/2024 15:54:19 02/11/20 24 02/12/2024 LIPID PANEL triglyceride s 146 mg/dL <150 mg/dL Crystal l 150-1 99 mg/dL Borde rline High 200-4 99 mg/dL High >500 mg/dL Very High Not Available [address], [address], 02/12/2024 15:54:19 02/11/20 24 02/12/2024 LIPID PANEL direct HDL 52 mg/dL <40 mg/dl - Major Risk for CHD >60 mg/dl - Negat kavya Risk for CHD Not Available [address], [address], 02/12/2024 15:54:19 02/11/20 24 02/12/2024 DIREC T LDL direct LDL 107 mg/dL RISK CATEG ORY LDL GOAL _ CHD or CHD Risk Equiv alent s <100 mg/dl (10-y ear risk >20%) 2+ Risk Facto rs <130 mg/dl (10-y ear risk <= 20%) 0-1 Risk Facto r? <160 mg/dl ? Almos t all peopl e with 0-1 risk facto r have a 10 year risk <10%, thus 10 year risk asses ment in peopl e with 0-1 risk facto r is not neces dillan. Not Available [address], [address], 02/12/2024 15:54:20 02/15/20 24 02/15/2024 HGB A1C hemoglobin A1C 6.1 % 4.8-6. 0 high Goal: <7% in Patie nts with Diabe sunil An A1c betwe en 5.7-6 .4% is ident ified as pre-d iabet es and sugge sts risk for progr essio n to diabe sunil Two a1c value s of 6.5% or highe r is consi stent with a diagn osis of diabe sunil but may need fur er confi rmati on Not Available [address], [address], 02/15/2024 14:07:16 02/15/20 24 02/15/2024 HGB A1C estimated average glucose 128.4 mg/dL Not Available [address], [address], 02/15/2024 14:07:16 04/10/19 25 04/10/2024 XR, chest No observ ation record ed. [address], [address], 04/10/2024 14:22:30 Result Notes None recorded. Problems Name Problem SNOMED Code Status Onset Date Resolution Date Notes Provider Name and Address Organization Details Recorded Time Herpes labialis 1252917 Completed 03/14/2016 Removal Reason: in error, tx with antibiot ic ointment by Dr Durant and resolved in 1 week. Mert Yin MD [address] [place] [address], [phone] [facility] 7 11:41:35 Impaired fasting glycemia 779530432 Active 2015 Not Available [facility] 2 11:50:31 Peripher al venous insuffic iency 50302903 Active 2015 Not Available [facility] 2 11:50:31 Obesity 740303072 Completed 201512/08/2021 Removal Reason: Morbid obesity added to the problem list RENETTA Ray, [facility] 2 13:38:39 Retinal artery occlusio n 281810106 Active 2016 Not Available [facility] 2 11:50:31 Atrial fibrilla tion 05684678 Active 2017 Not Available [facility] 2 11:50:31 Sick sinus syndrome 55262846 Active 2017 due to amiodaro ne use q 6 mos TSH per [facility] Not Available [facility] 2 11:50:31 Obstruct kavya sleep apnea syndrome 15952205 Active 2017 Not Available [facility] 2 11:50:31 Morbid obesity 283839547 Completed 201804/21/2021 BMI > or = 35 with diagnosi s of hyperten ruddy Removal Reason: BMI 36.8 08/27/20. no other qualifyi ng comorbid ities. RENETTA Ray, [facility] 2 13:38:27 Chronic obstruct kavya pulmonar y disease 69276462 Completed 201812/27/2020 coded 10/07/18 CT chest Removal Reason: not a dx Mert Yin MD [address] [place] [address], [phone] , [facility] 1 08:33:53 Transien t cerebral ischemia 604888291 Active 2019 Not Available [facility] 2 11:50:31 Essentia l hyperten ruddy 14669151 Active 2021 Not Available [facility] 2 11:50:31 Morbid obesity 927348254 Active 2018 BMI > or = 35 with diagnosi s of hyperten ruddy Rupali Rod LPN null, [facility] 2 13:38:27 Chronic kidney disease stage 3 361044055 Active 2022 GFR = 57, CMP 04/18/22 RENETTA Campbell, [facility] 3 12:41:32 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 Mert Yin MD [address] [place] [address], [address] , [facility] 3 09:48:39 Hypercoa gulabili state 50522179 Active 2022 Mert Yin MD [address] [place] [address], [address] , [facility] 3 09:56:58 Heart failure with normal ejection fraction 439849227 Active 2023 Mert Yin MD [address] [place] [address], [address] , [facility] 4 13:15:07 Dermatop hytosis of the body Completed 200009/22/2011 Benny Fairchild MD [address] [place] [address], [address] , [facility] 6 08:54:16 Abnormal findings on diagnost ic imaging of breast 705964349 Completed 01/25/2016 Celine Álvarez PA-C [address] [place] [address], , [facility] 6 09:09:47 Gastroes ophageal reflux disease 233359972 Completed 200601/25/2016 Celine Álvarez PA-C [address] [place] [address], , [facility] 09:26:19 Precordi al pain 73678820 Completed 200609/22/2011 Benny Fairchild MD [address] [place] [address], , [facility] 6 08:54:16 Feces contents abnormal 077353354 Completed 09/22/2011 Benny Fairchild MD [address] [place] [address], , [facility] 6 08:54:16 Multiple joint pain 80941983 Completed 200409/22/2011 Benny Fairchild MD [address] [place] [address], , [facility] 6 08:54:16 Benign essentia l hyperten ruddy 4227485 Completed 11/25/2019 Removal Reason: revised Mert Yin MD [address] [place] [address], [address] , [facility] 0 09:21:38 Influenz a 3550964 Completed 09/22/2011 Benny Fairchild MD [address] [place] [address], , [facility] 6 08:54:16 Anxiety state 853271575 Completed 200609/22/2011 Benny Fairchild MD [address] [place] [address], [address] , [facility] 6 08:54:16 Glucose level outside referenc e range 098584280 Completed 200509/22/2011 Benny Fairchild MD [address] [place] [address], [address] , [facility] 6 08:54:16 Dizzines s 323980179 Completed 09/22/2011 Benny Fairchild MD [address] [place] [address], [address] , [facility] 6 08:54:16 Atopic dermatit is 88359432 Completed 200701/25/2016 Celine Álvarez PA-C [address] [place] [address], [address] , [facility] 09:09:51 Acute stress disorder 00382769 Completed 200509/22/2011 Benny Fairchild MD [address] [place] [address], [address] , [facility] 08:54:16 Joint pain 54831758 Completed 200409/22/2011 Benny Fairchild MD [address] [place] [address], [address] , [facility] 08:54:16 Anemia 589952516 Completed 200309/22/2011 Benny Fairchild MD [address] [place] [address], [address] , [facility] 6 08:54:16 Acute maxillar y sinusiti s 09178542 Completed 200109/22/2011 Benny Fairchild MD [address] [place] [address], [address] , [facility] 6 08:54:16 Elevated blood-pr essure reading without diagnosi s of hyperten ruddy 554545411 Completed 200109/22/2011 Benny Fairchild MD [address] [place] [address], [address] , [facility] 08:54:16 Degenera tive joint disease involvin g multiple joints 326467676 Active 2005 Not Available [facility] 2 11:50:31 Hyperlip idemia 26125370 Completed 200109/22/2011 Benny Fairchild MD [address] [place] [address], [address] , [facility] 08:54:16 Pain in wrist 80604055 Completed 200409/22/2011 Benny Fairchild MD [address] [place] [address], [address] , [facility] 08:54:16 Acute bronchit is 19378340 Completed 200109/22/2011 Benny Fairchild MD [address] [place] [address], [address] , [facility] 08:54:16 Malaise and fatigue 515341217 Completed 200509/22/2011 Benny Fairchild MD [address] [place] [address], [address] , [facility] 08:54:16 Headache 02726974 Completed 200609/22/2011 Benny Fairchild MD [address] [place] [address], [address] , [facility] 6 08:54:16 Rheumato id arthriti s 42118130 Completed 200401/25/2016 Celine Álvarez PA-C [address] [place] [address], [address] , [facility] 09:09:04 Shoulder pain 44630861 Completed 200709/22/2011 Benny Fairchild MD [address] [place] [address], [address] , [facility] 6 08:54:16 Impacted cerumen 16318617 Completed 200709/22/2011 Benny Fairchild MD [address] [place] [address], [address] , [facility] 6 08:54:16 Plantar fasciiti s 280586038 Completed 200701/25/2016 Celine Álvarez PA-C [address] [place] [address], [address] , [facility] 09:26:13 Insomnia 927169803 Active 2005 Not Available [facility] 2 11:50:31 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 778786343 Completed 200409/22/2011 Benny Fairchild MD [address] [place] [address], [address] , [facility] 6 08:54:16 Urticari a 778990767 Completed 200409/22/2011 Benny Fairchild MD [address] [place] [address], [address] , [facility] 6 08:54:16 Abdomina l pain 33136933 Completed 09/22/2011 Benny Fairchild MD [address] [place] [address], [address] , [facility] 6 08:54:16 Nonvenom ous insect bite of multiple sites 893913949 Completed 200109/22/2011 Benny Fairchild MD [address] [place] [address], [address] , [facility] 6 08:54:16 Common cold 30896941 Completed 200309/22/2011 Benny Fairchild MD [address] [place] [address], [address] , [facility] 6 08:54:16 Hand joint pain 205827602 Completed 200409/22/2011 Benny Fairchild MD [address] [place] [address], [address] , [facility] 6 08:54:16 On examinat ion - a rash Completed 200109/22/2011 Benny Fairchild MD [address] [place] [address], [address] , [facility] 6 08:54:16 Menopaus al symptom 49232669 Completed 200309/22/2011 Benny Fairchild MD [address] [place] [address], [address] , [facility] 6 08:54:16 Hearing loss 08481373 Active Not Available [facility] 11:50:31 Problem Notes None recorded. Procedures Surgical History Date Name Laterality Status Provider Name and Address Organization Details Recorded Time 08/16/19 24 G2211 completed Mert Yin MD [address] [place] [address], [phone], [facility] 08/16/2023 10:14:14 02/14/20 23 Medicare Wellness Visit completed Serenity Dawson MA [facility] 02/13/2023 07:46:28 03/16/19 23 Medicare Wellness Visit completed Serenity Dawson [facility] 03/14/2022 15:49:23 03/16/19 23 Alcohol use screening completed Serenity Dawson [facility] 03/14/2022 15:49:23 03/16/19 23 Cardiovascular disease risk reduction counseling completed Serenity Dawson [facility] 03/14/2022 15:49:23 06/24/19 22 Medicare Wellness Visit completed Serenity Dawson [facility] 06/23/2021 09:27:16 06/24/19 22 Alcohol use screening completed Serenity Dawson [facility] 06/23/2021 09:27:16 06/24/19 22 Cardiovascular disease risk reduction counseling completed Serenity Dawson [facility] 06/23/2021 09:27:16 06/24/19 22 Medicare Risk for Falls Screen completed Serenity Dawson [facility] 06/23/2021 09:35:53 01/12/20 21 Total hip arthroplasty completed Mert Yin MD [address] [place] [address], [address], [facility] 01/16/2021 11:17:18 06/22/19 21 Medicare Wellness Visit completed Lluvia Chowdhury [facility] 06/21/2020 08:50:08 06/22/19 21 prevention-cardiov ascular risk reduction counseling completed Lluvia Chowdhury [facility] 06/21/2020 08:50:08 06/22/19 21 prevention-annual alcohol misuse screening completed Lluvia Chowdhury [facility] 06/21/2020 08:50:08 05/02/19 20 Wound Care completed Nicole Brewer RN, BSN [facility] 05/02/2019 12:25:01 05/02/19 20 Medicare Risk for Falls Screen completed Brayden Gutierrez [facility] 05/02/2019 11:29:14 04/17/19 20 Wound Care completed Cyndi Mejía RN [facility] 04/17/2019 08:40:23 04/17/19 20 Suture/staple Removal completed Mert Yin MD [address] [place] [address], [address], [facility] 04/17/2019 08:56:57 04/10/19 20 Post hospital/SNF follow-up/Transiti onal Care completed Tanika Nettles [facility] 04/10/2019 11:49:25 04/10/19 20 Wound Care completed Mert Yin MD [address] [place] [address], [address], [facility] 04/11/2019 09:14:47 12/18/19 19 Medicare Wellness Visit completed Desmond Fields [facility] 12/17/2018 11:08:37 01/31/20 18 POC Coag Testing completed Mariana Og LPN [facility] 01/30/2018 10:40:11 11/06/19 18 POC Coag Testing completed Kavitha Mayers RN BSN [facility] 11/05/2017 14:08:54 10/31/19 18 POC Coag Testing completed Mariana Og LPN [facility] 10/30/2017 10:36:33 09/21/19 18 Medicare Wellness Visit completed Inez Garcia [facility] 09/20/2017 09:43:08 09/21/19 18 Advanced Care Planning completed Inez Garcia [facility] 09/20/2017 09:42:58 08/09/19 18 POC Coag Testing completed [facility] 08/08/2017 11:45:09 08/02/19 18 POC Coag Testing completed [facility] 08/01/2017 10:40:29 08/01/19 18 POC Coag Testing completed JEWEL Bray [facility] 08/01/2017 07:58:45 07/31/19 18 POC Coag Testing completed [facility] 07/30/2017 09:11:06 07/29/19 18 POC Coag Testing completed Nicole Brewer RN, [facility] [place] [place] 07/28/2017 12:06:09 07/28/19 18 POC Coag Testing completed [facility] 07/27/2017 13:32:24 07/26/19 18 POC Coag Testing completed [facility] 07/25/2017 11:41:39 07/25/19 18 POC Coag Testing completed [facility] 07/24/2017 11:20:44 07/24/19 18 POC Coag Testing completed Kavitha Mayers RN BSN [facility] 07/23/2017 11:18:23 07/20/19 18 POC Coag Testing completed Kavitha Mayers RN BSN [facility] 07/19/2017 11:15:29 07/18/19 18 Post hospital/SNF follow-up/Transiti onal Care completed Lacey Espinal, HEATHER [address] [place] [address], [address], [facility] 07/18/2017 10:37:02 09/20/19 17 Medicare Wellness Visit completed Inez Garcia [facility] 09/19/2016 09:57:06 09/20/19 17 Cerumen Removal - Irrigation/Lavage completed Ambreen Yi [facility] 09/19/2016 11:03:38 10/19/19 16 Medicare Risk for Falls Screen completed [facility] 10/19/2015 12:06:45 03/31/19 16 Medicare Wellness Visit completed Cindy Krueger RN [facility] 03/31/2015 08:35:10 03/30/19 15 Medicare Wellness Visit completed Benny Fairchild MD [address] [place], [address], [facility] 03/30/2014 09:10:32 02/29/20 13 Medicare Wellness Visit completed Rebecca West LPN [facility] 02/28/2013 09:59:20 03/25/19 13 Treatment and Advice completed Amanda Winn Ms, PT [address] [place], [address], [facility] 03/25/2012 17:59:02 03/18/19 13 Treatment and Advice completed Amanda Canadae Ms, PT [address] [place], [address], [facility] 03/18/2012 15:15:35 02/28/20 12 Treatment and Advice completed Amanda Winn Ms, PT [address] [place], [address], [facility] 02/28/2012 16:29:43 02/26/20 12 Treatment and Advice completed Amanda Winn Ms, PT [address] [place], [address], [facility] 02/26/2012 15:15:27 02/21/20 12 Treatment and Advice completed Amanda Winn Ms, PT [address] [place], [address], [facility] 02/21/2012 20:49:33 02/20/20 12 Treatment and Advice completed Amanda Winn Ms, PT [address] [place], [address], [facility] 02/20/2012 13:08:56 02/14/20 12 Treatment and Advice completed Amanda Winn Ms, PT [address] [place], [address], [facility] 02/14/2012 16:25:17 02/09/20 12 Medicare Wellness Visit completed Tien Scott LPN [facility] 02/09/2012 10:10:30 08/03/19 12 Cholecystectomy completed Benny Fairchild MD [address] [place], [address], [facility] 05/09/2012 12:22:14 02/02/20 11 Medicare Wellness Visit completed Benny Fairchild MD [address] [place] [address], [address], [facility] 02/01/2011 12:44:11 Cataract Surgery completed Mert Yin MD [address] [place] [address], [address], [facility] 09/19/2016 10:35:52 Imaging Results Imaging Date Name Status LastModified by Organizatio n Details LastModified Time 04/10/2024 XR, chest active [email or web address] [address], [address], 04/10/2024 14:22:30 Procedure Notes None recorded. Medical Equipment None Reported. Allergies Allergen ID Allergen Name Allergen Category Reaction Reaction Severity Criticality Documentation Date Start Date Code Code System Note Provider Name and Address Organization Details Recorded Time 150749 amlodipin e medicatio n other mild Not available 05/09/2012 96427 RxNorm edema Benny Fairchild [place] [facility], [phone], [facility] 12:25:30 [id number] hydrochlo rothiazid e medicatio n Not available Not available Not available 05/09/2012 [id number] RxNorm elect rolyt e abnor malit ies Inez Garcia, [facility] null, [facility] 8 09:36:02 [id number] valacyclo vir medicatio n other Not available Not available 03/27/2014 [id number] RxNorm mild ARF Benny Fairchild MD [address] [place] [address] [place], [address], [facility] 5 09:39:42 [id number] amoxicill in medicatio n Not available Not available Not available 06/15/2008 723 RxNorm Benny Fairchild MD [address] [place], [place] [address], [phone], [facility] 12:24:41 [id number] losartan medicatio n Not available Not available Not available 08/01/2011 [id number] RxNolenny Fairchild MD [address] [facility], [place], [address], [facility] 12:25:01 [id number] lisinopri l medicatio n cough Not available Not available 09/22/2011 [id number] RxNorm Benny Fairchild MD [address] [facility], [place], [address], [facility] 10:38:02 Medications Name Sig Start Date Stop Date Status Note LastModified by Organization Details LastModified Time losartan 50 mg tablet TAKE 1 TABLET BY MOUTH EVERY DAY 01/27 completed Not Available Not Available Not Available Dramamine 50 mg tablet Take 1 tablet as needed by oral route at bedtime for 7 days. 07/17 completed per cardiolo gy x 7 days for nausea, prn. OTC Not Available Not Available Not Available furosemid e 40 mg tablet Take 1 tablet twice a day by oral route for 30 days. 09/05 completed not taking 09/05/21 as Not Available Not Available Not Available Miralax 17 gram/dose oral powder Take 1 g as needed by oral route. 2020 active per 01/[address] [facility] med dc list.dis olve in 4-8oz of fluid--h old for loose stools Not Available Not Available Not Available Colace 100 mg capsule Take 1 capsule twice a day by oral route. 06/23 completed per 01/[address] [facility] med dc list Not Available Not Available Not Available doxycycli ne hyclate 100 mg capsule TAKE 1 CAPSULE BY MOUTH 2 TIMES A DAY FOR 10 DAYS 06/11 completed Not Available Not Available Not Available torsemide 20 mg tablet Take 1 tablet every day by oral route for 30 days. active Not Available Not Available No t Available Acetamino phen Extra Strength 500 mg tablet Take 2 tablets every 8 hours by oral route. 2020 active Do not exceed 3000mg per day. taken at 8/2/8p. per 01/[address] [facility] med dc list Not Available Not Available Not Available clindamyc in HCl 300 mg capsule 06/18 completed Not Available Not Available Not Available doxazosin 1 mg tablet Take 1 tablet every day by oral route. active Not Available Not Available No t Available diltiazem CD 180 mg capsule,e xtended release 24 hr Take 1 capsule every day by oral route. active Not Available Not Available No t Available amiodaron e 200 mg tablet TAKE 1 TABLET BY MOUTH DAILY 01/[address] Carlisle stopped Not Available Not Available Not Available hydrocort isone valerate 0.2 % topical cream Apply to the affected area(s) by topical route 2 times per day 2010 active Not Available Not Available Not Avai lable metoprolo l succinate ER 50 mg tablet,ex tended release 24 hr TAKE 1 TABLET BY MOUTH AT BEDTIME active Not Available Not Available No t Available valacyclo vir 1 gram tablet Take 2 tablets every 12 hours by oral route for 1 day. 2013 active Not Available Not Available Not Avai lable hydrocodo ne 5 mg-acetam inophen 325 mg tablet TAKE 1 TABLET BY MOUTH EVERY 6 HOURS FOR 7 DAYS NEEDED 12/27 completed Not Available Not Available Not Available senna 8.6 mg tablet Take 1 tablet every day by oral route. 02/08 completed per 01/[address] [facility] med dc list- OTC Not Available Not Available Not Available ondansetr on HCl 4 mg tablet take 1 tablet by mouth every 8 hours if needed 12/17 completed doesnt take 12/17/18 sj Not Available Not Available Not Available torsemide 10 mg tablet TAKE 1 TABLET BY MOUTH EVERY DAY active Pt states only taking 1/2 tab 08/16/23 Not Available Not Available Not Available Flonase 50 mcg/actua tion nasal spray,tyrone pension [place] 2 sprays every day by intranas al route. 2009 active Not Available Not Available Not Avai lable acetamino phen 300 mg-codein e 30 mg tablet TAKE 1 TABLET BY MOUTH THREE TIMES DAILY FOR 7 DAYS NEEDED 12/20 completed Not Available Not Available Not Available amlodipin e 5 mg tablet Take 2 tablets every day by oral route. active Not Available Not Available No t Available acyclovir 400 mg tablet Take 2 tablet(s ) po 2x/d x5d, then 1 tab 2x/d 2014 active Not Available Not Available Not Avai lable valacyclo vir 500 mg tablet Take 1 tablet every day by oral route. 2013 active Not Available Not Available Not Avai lable sulfameth oxazole 800 mg-trimet hoprim 160 mg tablet TAKE 1 TABLET BY MOUTH EVERY 12 HOURS FOR 3 DAYS 02/14 completed Not Available Not Available Not Available tramadol 50 mg tablet Take 1 tablet every 6 hours by oral route as needed for 7 days. 06/18 completed not taking 06/19/2019 jeffrey Not Available Not Available Not Available levothyro xine 25 mcg tablet TAKE 1 TABLET BY MOUTH EVERY DAY 08/15 completed Not taking 08/16/23 Not Available Not Available Not Available fluticaso ne propionat e 0.005 % topical ointment Apply by topical route to affected area 2x/d 2011 active Not Available Not Available Not Avai lable oxycodone -acetamin ophen 5 mg-325 mg tablet TK 1 T PO Q 8 H FOR 7 DAYS PRN 08/27 completed Pt not using 08/27/20 NMT Not Available Not Available Not Available lorazepam 0.5 mg tablet take 1 tablet by mouth BEFORE MRI PROCEDUR E 12/17 completed doesnt take 12/17/18 sj Not Available Not Available Not Available desonide 0.05 % topical ointment 06/01 completed Not Available Not Available Not Available amiodaron e 400 mg tablet TAKE 1 TABLET BY MOUTH TWICE DAILY 08/10 completed Not Available Not Available Not Available hydrocort isone valerate 0.2 % topical ointment APPLY TO THE AFFECTED AREA(S) BY TOPICAL ROUTE 2 TIMES PER DAY 2013 active Not Available Not Available Not Avai lable Soha 180 mg tablet Take 1 tablet every day by oral route. 2009 active Not Available Not Available Not Avai lable benzonata te 100 mg capsule TAKE 1 CAPSULE BY MOUTH 3 TIMES A DAY FOR 10 DAYS 06/11 completed Not Available Not Available Not Available torsemide 5 mg tablet TAKE 1 TABLET BY MOUTH EVERY DAY FOR 10 DAYS 09/05 completed Not Available Not Available Not Available erythromy sade 5 mg/gram (0.5 %) eye ointment 12/20 completed Not Available Not Available Not Available acyclovir 5 % topical ointment APPLY TO THE AFFECTED AREA(S) BY TOPICAL ROUTE 6 TIMES PER DAY x7 2014 active Not Available Not Available Not Avai lable oseltamiv ir 75 mg capsule Take 1 capsule twice a day by oral route for 5 days. 03/11 completed Not Available Not Available Not Available triamcino lone acetonide 0.1 % topical ointment APPLY A THIN LAYER TO THE AFFECTED AREA(S) BY TOPICAL ROUTE 2 TIMES PER DAY prn itch 2013 active Not Available Not Available Not Avai lable verapamil ER (PM) 200 mg capsule 24[address] pellet CT,ext.re lease Take 1 capsule every day by oral route. 06/24 completed Not Available Not Available Not Available clotrimaz ole-betam ethasone 1 %-0.05 % topical cream Apply by topical route to affected area 2x/d until rash improved active PRN Not Available Not Available No t Available lisinopri l 10 mg tablet Take 1 tablet every day by oral route at bedtime. active Not Available Not Available No t Available lidocaine 5 % topical patch apply 1 patch once daily MAY WEAR UP TO 12 HOURS 06/14 completed not covered by insuranc e Not Available Not Available Not Available warfarin 5 mg tablet take 1 tablet by mouth once daily 06/23 completed not taking anymore 06/19/2019 jeffrey Not Available Not Available Not Available metronida zole 0.75 % topical cream 09/19 completed Not Available Not Available Not Available losartan 25 mg tablet take 1 tablet by mouth once daily 06/11 completed Not Available Not Available Not Available diltiazem ER (XR/XT) 120 mg capsule,e xtended release 24 hr, controlle d Take 1 capsule every day by oral route. 2013 active Not Available Not Available Not Avai lable verapamil ER (PM) 300 mg capsule 24hr pellet CT,ext.re lease TAKE 1 CAPSULE BY MOUTH DAILY 09/28 completed Not Available Not Available Not Available codeine 10 mg-guaife nesin 100 mg/5 mL Syrup Take 10 mL every 4 hours by oral route as needed. 2008 active Not Available Not Available Not Avai lable triamcino lone acetonide 0.025 % topical ointment Apply by topical route up to 4x/d prn rash 2013 active Not Available Not Available Not Avai lable gabapenti n 300 mg capsule TAKE 1 CAPSULE BY MOUTH 3 TIMES DAILY 05/02 completed 02/04/20 19 not taking tv, Not taking 03/07/19 LZ Not Available Not Available Not Available diltiazem CD 120 mg capsule,e xtended release 24 hr Take 1 capsule every day by oral route. 02/14 completed Not Available Not Available Not Available verapamil ER (PM) 100 mg capsule 24hr pellet CT,ext.re lease Take 1 capsule every day by oral route at bedtime. 2013 active Not Available Not Available Not Avai lable bumetanid e 1 mg tablet Take 1 tablet every day by oral route for 30 days. 07/11 completed Pt not taking 07/11/21 as Not Available Not Available Not Available hydrocort isone 2.5 % topical cream APPLY THIN LAYER TOPICALL Y TO THE AFFECTED AREA TWICE DAILY 08/10 completed Not Available Not Available Not Available hydroxyzi ne HCl 25 mg tablet Take 1 tablet every 6 hours by oral route as needed. 2010 active Not Available Not Available Not Avai lable codeine 10 mg-guaife nesin 100 mg/5 mL oral liquid TAKE 10MLS BY MOUTH EVERY 6 HOURS NEEDED 06/11 completed Not Available Not Available Not Available lisinopri l 5 mg tablet 1 tab qd 12/17 completed doesnt take 12/17/18 sj Not Available Not Available Not Available hydrochlo rothiazid e 25 mg tablet Take 1 tablet every day by oral route. 02/05 completed 02/04/20 19 not taking tv Not Available Not Available Not Available mupirocin 2 % topical ointment 06/01 completed Not Available Not Available Not Available furosemid e 20 mg tablet take 1 tablet by mouth every morning FOR FIVE DAYS 08/15 completed Not Available Not Available Not Available metoprolo l succinate ER 25 mg tablet,ex tended release 24 hr take 1 tablet by mouth once daily 07/03 completed Not Available Not Available Not Available warfarin 1 mg tablet TAKE 2 TO 3 TABLETS BY MOUTH ONCE DAILY 06/23 completed not taking anymore 06/19/2019 jeffrey Not Available Not Available Not Available albuterol sulfate HFA 90 mcg/actua tion aerosol inhaler INHALE 2 PUFFS BY MOUTH EVERY 4 TO 6 HOURS NEEDED 12/20 completed Not Available Not Available Not Available fluocinon yariel 0.05 % topical cream APPLY TOPICALL Y TO THE AFFECTED AREA TWICE DAILY FOR 2 WEEKS 08/15 completed Not Available Not Available Not Available lidocaine HCl 5 % topical ointment 06/28 completed as needed Not Available Not Available Not Available losartan 100 mg tablet TAKE 1 TABLET BY MOUTH EVERY DAY 2024 active Not Available Not Available Not Avai lable amoxicill in 500 mg-potass ium clavulana te 125 mg tablet TAKE 1 TABLET BY MOUTH EVERY 12 HOURS FOR 14 DAYS 08/10 completed Not Available Not Available Not Available oxycodone 5 mg tablet TAKE 1 TABLET BY MOUTH EVERY 8 HOURS FOR 7 DAYS NEEDED FOR MODERATE PAIN 06/23 completed Not Available Not Available Not Available neomycin 3.5 mg/g-poly myxin B 10,000 unit/g-de xameth 0.1 % eye oint apply A THIN 1/4 INCH RIBBON into both eyes twice a day 12/20 completed PRN Not Available Not Available Not Available amiodaron e 100 mg tablet 05/02 completed Not Available Not Available Not Available duloxetin e 20 mg capsule,d elayed release TAKE 2 CAPSULES BY MOUTH DAILY 12/20 completed Pt using 30mg 08/27/20 NTM Not Available Not Available Not Available duloxetin e 30 mg capsule,d elayed release TAKE 1 CAPSULE BY MOUTH TWICE DAILY 08/15 completed Not Available Not Available Not Available oxycodone 5mg q6 hours prn 02/08 completed per 01/25 SNF med dc list. PRN for severe pain Not Available Not Available Not Available metoprolo l tartrate 50mg 2x day 07/31 completed per 07/16 SNF med dc list Not Available Not Available Not Available lidocaine 5% ointment . applicat ion topicall y prn 06/11 completed per 06/30 hosp med dc list. Stopped 02/28/18 DO Not Available Not Available Not Available metoprolo l succinate 50mg bid 02/08 completed per cardiolo gy. goal SBP <130 Not Available Not Available Not Available oxycodone 10 mg tablet TAKE 1 TABLET BY MOUTH EVERY 8 HOURS FOR 7 DAYS NEEDED 01/24 completed Not Available Not Available Not Available Pradaxa 150 mg capsule TAKE 1 CAPSULE BY MOUTH TWICE A DAY 07/31 completed per 06/30 med dc list. ordered by cardiolo gy, not currentl y taking 07/17/17 Not Available Not Available Not Available lidocaine 5 % topical ointment apply to leg wound daily as needed 08/27 completed No longer using 08/27/20 NMT Not Available Not Available Not Available Eliquis 5 mg tablet TAKE 1 TABLET BY MOUTH TWICE A DAY active Not Available Not Available No t Available Jardiance 10 mg tablet TAKE 1 TABLET BY MOUTH EVERY DAY active Not Available Not Available No t Available duloxetin e 40 mg capsule,d elayed release 06/23 completed not taking anymore 06/19/2019 jeffrey Not Available Not Available Not Available Shingrix (PF) 50 mcg/0.5 mL intramusc ular suspensio n, kit 05/02 completed not taking 08/15/18 sj Not Available Not Available Not Available metoprolo l succinate ER 50 mg capsule sprinkle, ext. release 24 hr Take 1 capsule every day by oral route. 07/12 completed per 07/02 [facility] med dc list - dose increase d by cardiolo gy Not Available Not Available Not Available Tylenol 325 mg capsule 1-2 tabs prn for mild pain or fever q 4 hrs prn for general discomfo rt 02/08 completed PRN Not Available Not Available Not Available Fluad 65yr up(PF)45 mcg(15 mcgx3)/0. 5 mL intramusc ular syringe inject 0.5 millilit er intramus cularly 12/20 completed Not Available Not Available Not Available Fluad 65yr up(PF)45 mcg(15 mcgx3)/0. 5 mL intramusc ular syringe inject 0.5 millilit ers intramus cularly 02/03 completed Not Available Not Available Not Available Fluzone High-Dose Quad (PF) 240 mcg/0.7 mL IM syringe ADM 0.7ML IM UTD 08/27 completed Not Available Not Available Not Available Vitals Date Recorded Body height Provider Name an d Address Organization Details Last Updated DateTime 01/26/2023 161.29 cm Serenity Dawson MA [facility] 01/26/2023 11:52:34 Date Recorded Body mass index (BMI) Body weight Provider Name and Address Organization Details Last Updated DateTime 01/26/2023 37.8 kg/m2 01129.54 g Serenity Dawson MA [facility] 01/26/2023 11:52:46 Date Recorded Heart rate Provider Name an d Address Organization Details Last Updated DateTime 01/26/2023 100 /min Serenity Dawson MA [facility] 01/26/2023 11:54:47 Date Recorded Body height Provider Name an d Address Organization Details Last Updated DateTime 02/13/2023 161.29 cm Serenity Dawson MA [facility] 02/13/2023 08:52:39 Date Recorded Body mass index (BMI) Body weight Provider Name and Address Organization Details Last Updated DateTime 02/13/2023 38.7 kg/m2 035474.21 g Serenity Dawson MA [facility] 02/13/2023 08:54:02 Date Recorded Heart rate Provider Name an d Address Organization Details Last Updated DateTime 02/13/2023 84 /min Serenity Dawson MA [facility] 02/13/2023 08:54:39 Date Recorded Body height Provider Name an d Address Organization Details Last Updated DateTime 08/16/2023 161.29 cm Serenity Dawson MA [facility] 08/16/2023 09:36:40 Date Recorded Body mass index (BMI) Body weight Provider Name and Address Organization Details Last Updated DateTime 08/16/2023 39.9 kg/m2 550102.65 g Serenity Dawson MA [facility] 08/16/2023 09:36:50 Date Recorded Heart rate Provider Name an d Address Organization Details Last Updated DateTime 08/16/2023 72 /min Serenity Dawson MA [facility] 08/16/2023 09:38:43 Date Recorded Body height Provider Name an d Address Organization Details Last Updated DateTime 01/16/2024 161.29 cm Taylor Walker MA [facility] 01/16/2024 15:18:02 Date Recorded Body mass index (BMI) Body weight Provider Name and Address Organization Details Last Updated DateTime 01/16/2024 39.9 kg/m2 728792.65 g Taylor Walker SAYDA [facility] 01/16/2024 15:33:55 Date Recorded Oxygen saturation Oxygen saturation in Arterial blood by Pulse oximetry Provider Name and Address Organization Details Last Updated DateTime 01/16/2024 96 % 96 % Taylor Walker MA [facility] 01/16/2024 15:34:43 Date Recorded Heart rate Provider Name an d Address Organization Details Last Updated DateTime 01/16/2024 95 /min Taylor Walker MA [facility] 01/16/2024 15:34:46 Date Recorded Body temperature Provider Name a nd Address Organization Details Last Updated DateTime 01/16/2024 97.7 [degF] Taylor Walker SAYDA [facility] 01/16/2024 15:35:21 Date Recorded Body height Provider Name an d Address Organization Details Last Updated DateTime 02/15/2024 161.29 cm Serenity Dawson MA [facility] 02/15/2024 09:42:58 Date Recorded Body mass index (BMI) Body weight Provider Name and Address Organization Details Last Updated DateTime 02/15/2024 39.8 kg/m2 358358.06 g Serenity Dawson MA [facility] 02/15/2024 09:43:49 Date Recorded Heart rate Provider Name an d Address Organization Details Last Updated DateTime 02/15/2024 80 /min Serenity Dawson MA [facility] 02/15/2024 09:44:58 Date Recorded Systolic blood pressure Diastolic blood pressure Provider Name and Address Organization Details Last Updated DateTime 01/26/2023 116 mm[Hg] 76 mm[Hg] Serenity Dawson MA [facility] 01/26/2023 11:54:18 Date Recorded Systolic blood pressure Diastolic blood pressure Provider Name and Address Organization Details Last Updated DateTime 02/13/2023 126 mm[Hg] 86 mm[Hg] Serenity Dawson MA [facility] 02/13/2023 08:54:09 Date Recorded Systolic blood pressure Diastolic blood pressure Provider Name and Address Organization Details Last Updated DateTime 02/13/2023 120 mm[Hg] 68 mm[Hg] Mert Yin MD [address] [place] [address], [phone], [facility] 02/13/2023 09:24:12 Date Recorded Systolic blood pressure Diastolic blood pressure Provider Name and Address Organization Details Last Updated DateTime 02/22/2023 125 mm[Hg] 70 mm[Hg] Kavitha Mayers RN BSN [facility] 02/22/2023 11:36:45 Date Recorded Systolic blood pressure Diastolic blood pressure Provider Name and Address Organization Details Last Updated DateTime 08/16/2023 132 mm[Hg] 82 mm[Hg] Serenity Dawson MA [facility] 08/16/2023 09:38:11 Date Recorded Systolic blood pressure Diastolic blood pressure Provider Name and Address Organization Details Last Updated DateTime 08/16/2023 126 mm[Hg] 78 mm[Hg] Mert Yin MD [address] [place] [address], [phone], [facility] 08/16/2023 10:20:14 Date Recorded Systolic blood pressure Diastolic blood pressure Provider Name and Address Organization Details Last Updated DateTime 01/16/2024 114 mm[Hg] 74 mm[Hg] Taylor Walker [facility] 01/16/2024 15:36:38 Date Recorded Systolic blood pressure Diastolic blood pressure Provider Name and Address Organization Details Last Updated DateTime 02/15/2024 128 mm[Hg] 70 mm[Hg] Serenity Dawson MA [facility] 02/15/2024 09:44:21 Social History Question Answer Notes LastModified by Organization Details LastModified Time Tobacco Smoking Status Former Smoker quit 2000 Not Available [facility] 08/04/2010 02:08:17 What Is Your Level Of Alcohol Consumption? Occasional Rare Information not available 02/28/2013 Do You Wear A Helmet When Biking? No Doesn't Ride Bike Information not available 06/24/2014 What Type Of Diet Are You Following? REGULAR Information not available 02/01/2011 Which Illicit Or Recreational Drugs Have You Used? None Information not available 01/26/2011 Do You Or Have You Ever Used E-cigarettes Or Vape? Never Used Electronic Cigarettes Information not available 03/07/2019 What Is Your Occupation? [employer] Information not available 01/26/2011 When Did You Quit Smoking? 16+yearssincel astcian Information not available 01/16/2024 How Many Days In The Past Year Have You Had A Heavy Drinking Consumption (4+ Female, 5+ Male)? 0 Information not available 03/31/2015 Are There Any Guns Present In Your Home? No Information not available 06/24/2014 Live Alone Or With Others? With Others [email or web address] Information not available 03/16/2022 Does The Patient Have Difficulty Speaking [place]? No Information not available 06/24/2014 Does The Patient Have Difficulty Reading [place] Island[place]? No Information not available 06/24/2014 Patient Has Health Care Proxy Signed And In Chart Yes Tae 39 Yrs M. 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 Unstable PT/INR. Med Changes 07/20 By Lead Cook. BLE Edema New Since 07/20- Started On HCTZ Goal: SBP <130 Information not available 07/17/2017 Case Management Plans/Interven tions #1 Health Teaching Pt Will Verbalize When To Seek Medical Advice, Reporting Sob, Weakness,dizzin ess, Or Fainting, Change In Pain Type. Cough With Dark-colored Phlegm; Fever, Edema. Call 911 With Wheezing, Trouble Breathing.; Moniter Wt For Edema (SNF Dc Wt. 193lb - BMI 33) Report 2-3lb Gain In 24/48 Hrs. Safety. - Encourage Q Day Weight - Dietary Consistence With Green Leafy Veg For Stabilization Of INR Value Information not available 07/17/2017 Care Plan Status Of Goals Initiated Information not available 07/17/2017 Care Plan Disposition Patient Connected With Healthcare Professional For Continued Care Information not available 07/17/2017 Case Management Needs Identified #2 Linkage To Community Resources: -admitted To Rehab 07/13-07/16. She Requeste D/c Home 07/16. Declined VNA Support. Safety Awareness Information not available 07/17/2017 Case Management Plans/interven tions #2 Coordination Of Services -agreeable To Outpatient Physical Therapy @ [facility]. -spouse/family Will Be Assisting Her -Ultra Sound Of Lt Arm 07/15( + DVT) -acceptance Of CD-[facility] 07/31 [facility] Information not available 07/17/2017 MOLST Form Signed And In Chart 09/25/2017 [email or web address] Information not available 11/21/2017 CCM Consent Discussion 06/23/2021 [email or web address] Information not available 06/24/2021 Marital Status Fritz Rutledge, 36 Yrs.m. ricki Information not available 03/16/2022 Mosquito Repellent Used Routinely Yes Information not available 03/16/2022 What Was The Date Of Your Most Recent Tobacco Screening? 02/15/2024 [email or web address] Information not available 02/15/2024 How Many Children Do You Have? 3 . 1 Son In MVA 2005. 6 Grandchildren, 2 Great-grandchil dren. ( 1 Grand-daughter Is A Nurse) Information not available 12/14/2009 What Is Your Current Pack Years? 30ormorepackye ars Started Age 17 To Year 1999. [email or web address] Information not available 01/16/2024 Seat Belts Used Routinely Yes Information not available 03/16/2022 Are You Sexually Active? No Information not available 01/26/2011 Smoke Alarm In Home Yes [email or web address] Information not available 03/16/2022 At What Age Did You Start Smoking Tobacco? 17 Information not available 01/16/2024 Do You Or Have You Ever Used Smokeless Tobacco? Never Used Smokeless Tobacco Information not available 03/07/2019 How Much Tobacco Do You Smoke? No Information not available 04/10/2019 Do You Use Sunscreen Routinely? Yes Information not available 06/24/2014 How Many Years Have You Smoked Tobacco? 42 Information not available 01/16/2024 Do You Or Have You Ever Used Any Other Forms Of Tobacco Or Nicotine? No Information not available 03/16/2022 Sex: Unknown Functional Status None recorded. Mental Status None recorded. Family History Relationship Description Onset Age of this Age Resolved Age Notes LastModified by Organization Details LastModified Time Brother Heart disease yperry Not available 2015 08:56:13 Brother Malignant tumor of pharynx 75 [email or web address] Not available 2022 08:52:50 Father Cerebrovascu lar accident 59 yperry Not available 08:56:14 Mother Congestive heart failure 79 [email or web address] Not available 2022 08:52:50 Medical History Condition Response Obesity Y Allergic Rhinitis Y INFECTIOUS DISEASE Y Hypertension Y METABOLIC Y Gynecological History Statement/Question Response History of Abnormal Pap N LMP Obstetrics History GPAL:G 0 P 0 0 0 0 Immunizations Vaccine Type Date Status Note Provider Nam e and Address Organization Details Recorded Time influenza, unspecified formulation 5 completed Not Available [facility] 01/25/2011 05:21:07 Td(adult) unspecified formulation 8 completed Not Available [facility] 01/25/2011 05:21:55 pneumococcal polysaccharide PPV23 8 completed Kiersten Trevizo [facility] 03/16/2022 08:52:54 Influenza, split virus, trivalent, preservative 2 completed Not Available [facility] 03/29/2019 02:25:37 Influenza, split virus, quadrivalent, PF 3 completed Not Available [facility] 03/29/2019 02:31:15 Influenza, split virus, quadrivalent, PF 4 completed Not Available [facility] 03/29/2019 02:20:14 zoster live 0 completed Not Available [facility] 03/29/2019 02:25:36 Influenza, high-dose, trivalent, PF 5 completed Not Available [facility] 03/29/2019 02:33:06 Pneumococcal conjugate PCV 13 6 completed Not Available [facility] 03/29/2019 02:37:10 Influenza, high-dose, trivalent, PF 6 completed Not Available [facility] 03/29/2019 02:35:34 Influenza, high-dose, trivalent, PF 7 completed Not Available [facility] 03/29/2019 02:34:53 zoster recombinant 8 [facility] 09:41:50 Influenza, high-dose, quadrivalent, PF 0 completed Kiersten Trevizo [facility] 03/16/2022 08:52:53 Influenza, split virus, trivalent, preservative 0 completed Not Available [facility] 03/29/2019 02:17:47 Tdap 0 completed Not Available [facility] 03/29/2019 02:15:22 COVID-19 vaccine, vector-nr, [id number], PF, 0.5 mL 1 completed Kiersten Trevizo [facility] 03/16/2022 08:52:54 Influenza, high-dose, quadrivalent, PF 3 [facility] 12[facility]15/2022 15:31:08 COVID-19, mRNA, LNP-S, PF, 30 mcg/0.3 mL dose 1 [facility]/15/2024 09:41:50 COVID-19, mRNA, LNP-S, PF, 30 mcg/0.3 mL dose 2 [facility] 12/20/2021 09:03:22 Influenza, adjuvanted, trivalent, PF 9 completed [facility] 02/15/2024 09:41:50 Influenza, adjuvanted, trivalent, PF 8 completed [facility] 02/15/2024 09:41:50 zoster recombinant 8 [facility] 02/15/2024 09:41:50 Influenza, high-dose, quadrivalent, PF 2 completed [facility] 02/15/2024 09:41:50 Influenza, adjuvanted, quadrivalent, PF 1 completed [facility] 02/15/2024 09:41:50 COVID-19, mRNA, LNP-S, PF, 30 mcg/0.3 mL dose, kareem-sucrose 2 completed [facility] 02/15/2024 09:41:50 COVID-19, mRNA, LNP-S, bivalent, PF, 30 mcg/0.3 mL dose 2 completed [facility] 02/15/2024 09:41:50 COVID-19, mRNA, LNP-S, PF, 50 mcg/0.5 mL 3 completed [facility]renity L[facility]SAYDA [facility] 02/15/2024 09:41:50 Tdap 3 completed Serenity Dawson S[facility] 02/15/2024 09:41:50 Influenza, high-dose, trivalent, PF 4 completed [facility] 02/15/2024 09:41:50 Td (adult), 2 Lf tetanus toxoid, preservative free, adsorbed 1 completed [facility]SA[facility] 02/15/2024 09:41:50 RSV, recombinant, protein subunit RSVpreF, adjuvant reconstituted, 0.5 mL, PF 4 completed Cindy Krueger RN [facility] 02/19/2024 14:46:58 Past Encounters Encounter ID Performer Location Encounter Start Date Encounter Closed Date Diagnosis/Indication Diagnosis SNOMED-CT Code Diagnosis ICD10 Code Diagnosis Note [id number] [facility], OFFICE [address] [facility] [place] [address] 07/05/2000 11:00:00 04/01/2008 02:02:29 [id number] [facility], OFFICE [address] [facility] [place] [address] 6 09/16/2001 15:01:04 04/01/2008 02:02:29 [id number] [facility], OFFICE [address] [facility] [place] [address] 6 09/26/2001 15:45:07 04/01/2008 02:02:29 [id number] [facility], OFFICE [address] [facility] [place] [address] 6 11/07/2001 08:58:15 04/01/2008 02:02:29 [id number] [facility] - [facility] [address] [place] [address] 6 11/15/2001 08:34:23 04/01/2008 02:02:29 [id number] LAB - [facility] [address] [facility] [place] [address] 11/25/2001 11:57:48 04/01/2008 02:02:29 [id number] [facility], OFFICE [address] [facility] [address] 02/21/2002 14:18:04 04/01/2008 02:02:29 [id number] [facility], OFFICE [address] [facility] [place] [place] [address] 03/10/2002 12:48:11 04/01/2008 02:02:29 [id number] [facility], OFFICE [address] [facility] [address] 03/16/2003 13:21:04 03/17/2003 08:55:05 [id number] LAB - [address] [place] [address] 03/20/2003 15:32:28 03/23/2003 09:39:13 [id number] LAB - [facility] [place] [address] 03/26/2003 08:05:58 03/26/2003 08:19:26 [id number] [facility] , [facility] [address] 03/30/2003 10:22:51 03/30/2003 16:42:49 [id number] Radiology , [facility] [address] [place] [address] 03/30/2003 00:00:00 04/01/2008 02:02:29 [id number] Radiology , [facility] [address] [place] [address] 6 03/30/2003 10:23:36 03/30/2003 16:39:52 [id number] Radiology , [facility] [address] [place] [address] 6 03/30/2003 00:00:00 04/01/2008 02:02:29 [id number] [facility], OFFICE [address] [place] [address] 6 02/25/2004 12:17:42 02/25/2004 15:53:43 [id number] [facility], OFFICE [address] [facility] [place] [address] 6 03/24/2004 14:25:02 03/25/2004 09:08:38 [id number] LAB - C [address] [place] [address] 04/04/2004 13:50:46 04/04/2004 13:51:03 [id number] [facility], OFFICE [address] [place] [address] 6 04/17/2004 10:32:00 04/18/2004 09:44:08 [id number] [facility], OFFICE [address] [place] [address] 6 07/07/2004 14:36:58 07/07/2004 17:50:05 [id number] LAB - [place] [address] 07/07/2004 14:54:58 07/07/2004 14:55:30 [id number] LAB - [facility] [address] [place] [address] 6 07/07/2004 00:00:00 04/01/2008 02:02:29 [id number] CHELY [facility], OFFICE [address] [place] [address] 6 07/12/2004 10:37:04 07/12/2004 15:08:21 [id number] [facility], OFFICE [address] [place] [address] 08/17/2004 08:23:07 08/18/2004 08:27:48 [id number] FP [facility], OFFICE [address] [facility] [place] [address] 6 09/05/2004 08:34:15 09/06/2004 10:33:08 [id number] FP, [facility], OFFICE [address] [facility] [place] [address] 6 10/18/2004 10:33:49 04/01/2008 02:02:29 [id number] FP, [facility], OFFICE [address] [facility] [place] [address] 6 12/13/2004 15:26:29 04/01/2008 02:02:29 [id number] , [facility], OFFICE [address] [facility] [place] [address] 6 04/19/2005 10:31:11 04/19/2005 15:20:58 [id number] LAB - C [address] [place] [address] 04/26/2005 12:32:05 04/26/2005 12:32:34 [id number] Radiology , [facility] [address] [place] [address] 06/19/2005 11:58:59 06/20/2005 08:58:35 [id number] Radiology , [facility] [address] [place] [address] 6 06/19/2005 00:00:00 04/01/2008 02:02:29 [id number] , [facility], OFFICE [address] [facility] [place] [address] 6 08/17/2005 11:02:59 04/01/2008 02:02:29 [id number] LAB - [facility] 70 [place] [address] 6 08/22/2005 07:21:10 08/22/2005 07:21:30 [id number] , [facility], OFFICE [address] [facility] [place] [place] [address] 6 01/05/2006 12:46:32 01/05/2006 16:26:22 [id number] , [facility], OFFICE [address] [facility] [place] [place] [address] 6 05/09/2006 10:46:23 05/09/2006 15:48:49 [id number] Radiology , [facility] [address] [place] [address] 05/09/2006 11:44:51 05/10/2006 09:14:36 [id number] Radiology , [facility] [address] [place] [address] 6 05/09/2006 00:00:00 04/01/2008 02:02:29 [id number] LAB - [facility] 70 [facility] [place] [address] 05/09/2006 11:43:42 05/09/2006 11:43:57 [id number] [facility], OFFICE [address] [facility] [place] [address] 6 08/01/2006 08:17:32 08/01/2006 13:52:07 [id number] [facility], OFFICE [address] [facility] [place] [place] [address] 6 08/08/2006 08:35:26 08/08/2006 16:10:09 [id number] Radiology , [facility] 70 [place] [address] 03/26/2007 14:36:03 03/27/2007 09:44:46 [id number] [facility], OFFICE 70 [facility] [place] [address] 03/26/2007 12:55:37 04/01/2008 02:02:29 [id number] Radiology , [facility] 70 [place] [address] 06/26/2007 14:37:15 06/27/2007 09:18:12 [id number] Radiology , [facility] [address] [place] [address] 6 06/26/2007 00:00:00 04/01/2008 02:02:29 [id number] [facility], OFFICE 70 [place] [address] 6 06/26/2007 15:17:10 04/01/2008 02:02:29 [id number] LAB - [facility] 70 [place] [address] 6 06/26/2007 15:57:41 06/26/2007 15:57:51 [id number] LAB - [address] [address] 07/08/2007 14:29:01 07/08/2007 14:29:14 [id number] [facility], OFFICE 70 [place] [address] 01/16/2008 11:10:50 04/01/2008 02:02:29 [id number] CHELY [facility], OFFICE [address] [place] [address] 6 02/20/2008 11:11:00 04/01/2008 02:02:29 [id number] [facility], OFFICE [address] [place] [address] 6 06/15/2008 09:24:07 06/17/2008 12:05:07 [id number] [facility], OFFICE [address] [place] [facility] [place] [address] 06/17/2008 09:22:53 06/19/2008 10:16:52 [id number] , [facility], OFFICE [address] [place] [facility] [place] [address] 6 11/26/2008 12:46:57 11/26/2008 14:18:45 [id number] , [facility], OFFICE [address] [facility] [place] [address] 6 12/08/2008 09:20:47 12/11/2008 13:45:28 [id number] LAB - C [address] [facility] [place] [address] 12/08/2008 10:21:01 12/08/2008 10:25:37 [id number] LAB - C [address] [place] [address] 12/10/2008 14:10:00 12/10/2008 14:10:33 [id number] LAB - C [address] [place] [address] 12/14/2008 14:58:34 12/14/2008 14:59:16 [id number] [facility], OFFICE [address] [place] [address] 03/06/2009 15:26:04 03/09/2009 15:09:22 [id number] [facility], OFFICE [address] [place] [address] 6 04/12/2009 09:32:30 04/15/2009 14:50:28 [id number] [facility], OFFICE [address] [facility] [place] [address] 6 06/02/2009 14:43:32 06/04/2009 14:56:08 [id number] [facility] , C [address] [place] [address] 6 06/02/2009 15:37:19 06/03/2009 11:53:32 [id number] Radiology , [facility] [address] [place] [address] 07/15/2009 10:14:09 07/16/2009 11:55:28 [id number] , [facility], OFFICE [address] [place] [address] 12/14/2009 09:51:42 12/17/2009 11:23:45 [id number] Radiology , [facility] [address] [place] [address] 01/13/2010 10:46:50 01/18/2010 11:38:29 [id number] FP, [facility], OFFICE [address] [place] [address] 07/23/2010 10:21:37 07/26/2010 10:47:42 [id number] FP, [facility], OFFICE [address] [facility] [place] [address] 02/01/2011 11:46:11 02/01/2011 13:04:58 [id number] , [facility], OFFICE [address] [place] [address] 6 06/16/2011 09:48:32 06/16/2011 11:45:31 [id number] FP, [facility], OFFICE [address] [place] [address] 06/22/2011 14:21:11 06/22/2011 15:17:05 [id number] Radiology , [facility] [address] [facility] [place] [address] 06/23/2011 12:24:57 06/26/2011 13:40:17 [id number] FP, [facility], OFFICE [address] [place] [address] 6 06/27/2011 10:40:00 06/28/2011 18:08:33 [id number] FP, [facility], OFFICE [address] [place] [address] 6 06/27/2011 11:22:45 06/27/2011 12:05:49 [id number] Radiology , [facility] [address] [place] [address] 6 07/24/2011 09:48:02 07/25/2011 10:20:44 [id number] FP, [facility], OFFICE [address] [facility] [place] [address] 07/25/2011 09:50:38 07/25/2011 10:25:29 [id number] Radiology , [facility] [address] [facility] [place] [address] 6 08/17/2011 09:46:52 08/18/2011 09:18:33 [id number] Radiology , [facility] [address] [facility] [place] [address] 6 08/17/2011 09:47:09 08/18/2011 09:18:50 [id number] , [facility], OFFICE [address] [facility] [place] [address] 08/25/2011 09:38:21 08/25/2011 10:20:23 [id number] , [facility], OFFICE [address] [facility] [place] [address] 09/22/2011 09:10:25 09/22/2011 09:58:09 [id number] , [facility], OFFICE [address] [facility] [place] [address] 10/06/2011 09:25:34 10/06/2011 10:19:07 [id number] , [facility], OFFICE [address] [facility] [place] [address] 11/22/2011 07:07:09 11/23/2011 09:14:33 [id number] Rebecca West LPN , [facility], OFFICE [address] [facility] [place] [address] 02/09/2012 09:47:49 02/09/2012 11:12:06 [id number] Amanda Tatum Ms, PT Physical Therapy, [facility] [address] [facility] [place] [address] 02/14/2012 15:30:52 02/15/2012 07:51:45 [id number] Amanda Winn Ms, PT Physical Therapy, [facility] [address] [facility] [place] [address] 02/20/2012 07:57:36 02/20/2012 13:30:53 [id number] Amanda Winn Ms, PT Physical Therapy, [facility] [address] [facility] [place] [address] 02/21/2012 17:20:10 02/22/2012 08:01:14 [id number] Luma Cardona MD Radiology , [facility] [address] [facility] [place] [address] 02/22/2012 11:24:00 02/23/2012 14:36:06 [id number] Amanda Winn Ms, PT Physical Therapy, [facility] [address] [facility] [place] [address] 02/26/2012 14:54:04 02/26/2012 16:31:02 [id number] Amanda Winn Ms, PT Physical Therapy, [facility] [address] [facility] [place] [address] 02/28/2012 14:30:45 02/28/2012 16:36:22 [id number] Benny Fairchild MD , [facility], OFFICE [address] [facility] [place] [address] 03/08/2012 09:19:00 03/08/2012 10:21:45 [id number] Amanda Winn Ms, PT Physical Therapy, [facility] [address] [facility] [place] [address] 03/18/2012 13:37:09 03/18/2012 15:30:16 [id number] Amanda Winn Ms, PT Physical Therapy, [facility] [address] [facility] [place] [address] 03/25/2012 15:03:34 03/26/2012 08:42:01 [id number] Rebecca West LPN , [facility], OFFICE [address] [facility] [place] [address] 05/09/2012 11:46:54 05/09/2012 12:35:00 [id number] Konrad Luciano , [facility], OFFICE [address] [facility] [place] [address] 6 05/31/2012 08:55:01 05/31/2012 09:26:52 [id number] , [facility], OFFICE [address] [facility] [place] [address] 10/18/2012 07:57:56 10/18/2012 08:24:03 [id number] Gonzalez Patino , [facility], OFFICE [address] [place] [address] 6 12/06/2012 07:31:50 12/06/2012 14:20:45 Influenza vaccine needed [id number] , [facility], OFFICE [address] [place] [address] 6 02/28/2013 09:54:15 02/28/2013 10:33:25 Adult health examination [id number] see Risk Assessment and Lifestyle Change Counseling section above Counseling [id number] Obesity 619891610 discus sed diet and exercise Glucose le ravi outside reference range 129412317 avoid simple sugars. Benign ess ential hypertension 4634096 Blood pressure at goal [id number] Sarita Garcia MA , [facility], OFFICE [address] [place] [address] 6 06/03/2013 10:53:00 06/03/2013 11:54:30 Benign essential hypertension 3180042 Blood pressure NOT at goal. increase med, f/u 1mo Atopic dermatitis 29078341 Screening for malignant neoplasm of breast 965501988 Gastroesop hageal reflux disease 669766590 classic sx last night, better after tums, EKG WNL, reassured [id number] Cassie Pino CMA(AANE) , [facility], OFFICE [address] [place] [address] 6 07/03/2013 10:11:50 07/03/2013 10:46:08 Benign essential hypertension 4111982 Blood pressure NOT at goal. add med, f/u 1mo had some edema w/ amlodipine , will try diltia, f/u 1mo, sooner prn side effects. [id number] Sherie Renner , [facility], OFFICE [address] [place] [address] 6 08/05/2013 09:22:45 08/05/2013 10:03:06 Benign essential hypertension 8899612 Blood pressure at goal. cont meds, f/u 3mo but pt agrees to call if side effects worsen or not improving over time [id number] Benny Fairchild MD , [facility], OFFICE [address] [place] [address] 6 11/14/2013 08:54:04 11/14/2013 09:28:15 Dermatitis 972621512 Benign ess ential hypertension 7857892 Blood pressure at goal Influenza vaccine needed [id number] 106 Progressiv e pigmentary dermatosis of [facility] [id number] reassured benign. advised to call if sx develop [id number] Cindy Krueger RN , [facility], OFFICE [address] [place] [address] 6 11/27/2013 11:22:52 11/27/2013 12:00:32 Benign essential hypertension 8365009 Blood pressure NOT at goal. inc dose, f/u 2mo, call sooner if BP not going to goal [id number] Cindy Krueger RN , [facility], OFFICE [address] [place] [address] 6 01/26/2014 14:16:50 01/26/2014 14:53:57 Herpes labialis 6069200 [id number] Cindy Krueger RN , [facility], OFFICE [address] [place] [address] 6 03/03/2014 10:39:51 03/03/2014 13:27:58 Herpes labialis 1890903 advised to take the acute rx treatment today, then start suppressiv e therapy. see below for more advice. call if not improving or if worsening [id number] Cindy Krueger RN , [facility], OFFICE [address] [place] [address] 6 03/25/2014 10:36:54 03/25/2014 16:08:04 Epigastric pain 89008088 LFTs and CBC WNL Herpes labialis 1771392 due to lowered GFR will have her hold on antiviral po meds and use topical instead for sx control Acute kidney injury 88123405 likely due to Valtrex, so advised to cont to hold med, cont good hydration, avoid NSAIDs. pt drinking and urinating well so recheck lab in AM f/u in office 2days but call immediatel y if malaise, n-v, dec'd urination or any other new or worsening sx [id number] , [facility], OFFICE [address] [place] [address] 6 03/27/2014 09:07:47 03/27/2014 09:45:26 Acute kidney injury 14979143 creatinine normalized yday after being off Valtrex for 3d. cont hydration. rehceck BMP 1week Benign ess ential hypertension 0218025 Blood pressure NOT at goal. but has been in pain, home BPs improving as pain improves, f/u 3d to ensure cont'd improvemen t Herpes labialis 2403183 rash now fully crusted so stop topical acyclovir. Start daily suppressiv e dosing, check BMP 1week, but call if fatigue, malaise, n-v [id number] Cindy Krueger RN FP, [facility], OFFICE [address] [place] [address] 6 03/30/2014 08:29:41 03/30/2014 09:05:47 Adult health examination 265535719 see Risk Assessment and Lifestyle Change Counseling section above Counseling [id number] MD CHELY Gary, [facility], OFFICE [address] [place] [address] 6 06/24/2014 08:55:42 06/24/2014 09:49:21 Benign essential hypertension 5189001 Blood pressure at goal but running borderline to high at home, so will inc med dose, f/u 3mo, sooner if side effects or BP not improving [id number] Cindy Krueger RN FP, [facility], OFFICE [address] [place] [address] 6 08/19/2014 13:09:29 08/19/2014 13:44:34 Benign essential hypertension 1705670 Blood pressure at goal. advised due for BMP next month Obesity 633683061 discus sed diet and exercise. note sent to wt loss SMA leader to contact pt [id number] HEATHER Estrada, C, OFFICE [address] [place] [address] 6 10/27/2014 15:30:19 10/29/2014 12:19:26 Obesity 655573141 [id number] CHELY [facility], OFFICE [address] [place] [phone] 6 11/03/2014 15:38:28 11/05/2014 08:57:42 Obesity 280747132 [id number] HEATHER Estrada, C, OFFICE [address] [place] [address] 6 11/10/2014 15:32:40 11/10/2014 16:52:29 Obesity 297584200 Influenza vaccine needed [id number] [id number] Rebecca Sanchez NP , [facility], OFFICE [address] [place] [address] 6 11/24/2014 15:36:17 11/24/2014 16:05:41 Obesity 868046370 [id number] Benny Fairchild MD , [facility], OFFICE [address] [place] [address] 6 03/31/2015 08:32:30 03/31/2015 09:25:38 Adult health examination 243341452 Z00.00 see Risk Assessment and Lifestyle Change Counseling section above Counseling 289983144 Z71 .9 Active or passive immunization 288594227 Z23 Low back pain 840215872 M54.5 no red flags, chronic off and on. Offered PT, she declines for now as she feels she manages well w/ her own exercises and stretches. Advised to call if worsening or not improving [id number] Nabeel Martin MD , [facility], OFFICE [address] [place] [phone] 6 09/06/2015 16:47:10 09/06/2015 17:46:21 Edema of lower extremity [id number] R60.0 [id number] Benny Fairchild MD , [facility], OFFICE [address] [place] [address] [phone] 09/29/2015 09:40:27 09/29/2015 11:06:53 Benign essential hypertension [id number] I10 see plan below Edema [id number] R60.9 resolved. see below Hyperkalemia [id number] E8 7.5 will cut back on K. will recheck K today at different lab to r/o lab error [id number] Lacey Espinal NP , [facility], OFFICE [address] [place] [address] 28130-236 6 10/19/2015 12:02:49 10/19/2015 12:50:54 Benign essential hypertension 8259092 I10 Blood pressure at goal on no meds. continue to monitor Edema of l ower extremity 791653836 R60.0 [id number] Lacey Espinal NP , [facility], OFFICE [address] [place] [address] 23001-436 6 11/02/2015 11:24:32 11/02/2015 11:55:04 Benign essential hypertension 8420221 I10 Blood pressure at goal Edema of l ower extremity 160007215 R60.0 Will try using the lasix daily. FU 3-4 weeks. [id number] Celine Ávlarez PA-C , [facility], OFFICE [address] [place] [address] 33001-175 6 01/25/2016 08:54:59 01/25/2016 09:26:31 Benign essential hypertension 2990606 I10 - Blood pressure at goal without medication s- Continue to monitor at home daily- If BP is higher than 140 or higher than 90, please call the office- Follow up in 3 months Active or passive immunization 146821282 Z23 Peripheral venous insufficiency 54914365 I87.2 - Wear compressio n stocking daily, especially in the morning and when being active- Elevate legs when at rest- Follow a low salt diet Obesity 460865248 E66.9 - Continue with exercise and weight loss Impaired f asting glycemia 268208224 R73.01 - Repeat labs before next appointmen t- Recommend exercise and weight loss [id number] Pricilla Rojas , [facility], OFFICE [address] [place] [address] 96997-811 6 03/14/2016 10:37:15 03/14/2016 11:49:50 Benign essential hypertension 0136956 I10 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 [id number] Mert Yin MD , [facility], OFFICE [address] [place] [address] 02190-535 6 06/01/2016 11:30:07 06/05/2016 08:25:43 Bilateral cataracts 46655780 H26.9 Pre-surger y evaluation 303031229 Z01.967 [id number] Mert Yin MD , [facility], OFFICE [address] [place] [address] 42075-132 6 09/19/2016 09:44:34 09/19/2016 11:20:11 Adult health examination 832788058 Z00.00 see Risk Assessment and Lifestyle Change Counseling section above Counseling 992491170 Z71 .9 Blood gluc ose outside reference range 190164581 R73.09 Impacted cerumen 4431212 6 H61.22 [id number] Deana Kirby LPN , [facility], OFFICE [address] [place] [address] 44359-596 6 12/11/2016 07:24:39 12/11/2016 10:47:22 Active or passive immunization 501848284 Z23 [id number] Mert Yin MD FP, [facility], OFFICE [address] [place] [address] 54262-809 6 04/26/2017 09:12:09 04/26/2017 10:15:57 Vertigo 441973909 R42 Cough 53747457 R05 Acute uppe r respiratory infection 30926373 J06.9 [id number] Mert Yin MD , [facility], OFFICE [address] [place] [address] 48606-191 6 05/04/2017 09:29:57 05/04/2017 10:38:04 Vertigo 674092419 R42 Ankle pain 627479339 M25 .444 [id number] Nicki Rios , [facility], OFFICE [address] [place] [address] 81017-803 6 06/14/2017 11:52:07 06/20/2017 08:38:34 Vertigo 976793045 R42 [id number] Crow Carty PA-C , [facility], OFFICE [address] [place] [address] 34213-012 6 06/28/2017 08:12:44 06/28/2017 12:13:52 Atrial fibrillation 05915232 I48.91 New-onset, currently tachycardi c, causing significan t dyspnea.I instructed Yina to go immediatel y to the ED for further management . She expresses understand ing and agreement and her will drive her directly there.Expe ct called to ED staff at [facility]. [id number] Lacey Espinal NP FP, [facility], OFFICE [address] [place] [address] 59947-898 6 07/17/2017 09:48:42 07/17/2017 11:40:23 Physical deconditioning 1580446382 9102 R68.89 Edema of t he upper extremity 626406188 R60.0 Acute deep venous thrombosis of axillary vein 5713639646 54999 I82.A19 Left - assoc with recent pacemaker and possible injury from blood pressure cuff while at hospital. Atrial fibrillation 4943 6004 I48.91 Pericardial effusion 373 789526 I31.3 bleed treated at [facility]. [id number] JEWEL Bray , [facility], OFFICE [address] [place] [address] 05955-423 6 07/19/2017 11:10:05 07/19/2017 14:17:40 Atrial fibrillation 71868933 I48.91 [id number] CHELY [facility], OFFICE [address] [place] [address] 88390-189 6 07/23/2017 11:15:03 07/23/2017 11:30:06 Atrial fibrillation 25445154 I48.91 [id number] Humera MO [facility], OFFICE [address] [place] [address] 43003-712 6 07/24/2017 11:19:45 07/24/2017 13:50:43 Atrial fibrillation 53712036 I48.91 [id number] Humera MO [facility], OFFICE [address] [place] [address] 18870-390 6 07/25/2017 11:34:20 07/25/2017 12:52:43 Atrial fibrillation 63063536 I48.91 [id number] Humera MO [facility], OFFICE [address] [place] [address] 48457-550 6 07/27/2017 13:31:30 07/27/2017 14:54:41 Atrial fibrillation 23314185 I48.91 [id number] Nicole Brewer RN, KALEB , [facility], OFFICE [address] [place] [address] 57326-232 6 07/28/2017 11:30:04 07/28/2017 12:24:11 Atrial fibrillation 03065947 I48.91 [id number] Humera MO [facility], OFFICE [address] [place] [address] 77693-755 6 07/30/2017 09:08:16 07/30/2017 14:02:50 Atrial fibrillation 12311942 I48.91 [id number] Kavitha Mayers RN BSN , [facility], OFFICE [address] [place] [address] 94219-141 6 07/31/2017 10:09:19 07/31/2017 10:57:06 Gagging 444136828 R19.8 Dyspnea on exertion 6084 5006 R06.09 Edema of l ower extremity 730055962 R60.0 Bilateral pleural effusion 762797189 J90 Atrial fibrillation 4943 6004 I48.91 [id number] Humera Lott , [facility], OFFICE [address] [place] [address] 65565-379 6 08/01/2017 10:39:31 08/01/2017 12:46:33 Atrial fibrillation 77667975 I48.91 [id number] Humera Lott [facility], OFFICE [address] [place] [address] 35635-356 6 08/08/2017 11:30:43 08/08/2017 14:37:00 Atrial fibrillation 31644454 I48.91 [id number] Mert Yin MD , [facility], OFFICE [address] [place] [address] 89648-464 6 08/13/2017 09:08:24 08/13/2017 11:03:03 Atrial fibrillation 98265665 I48.91 Sick sinus syndrome 3608 3008 I49.5 [id number] Mert Yin MD , [facility], OFFICE [address] [place] [address] 86951-936 6 09/20/2017 09:38:55 09/20/2017 10:58:04 Adult health examination 807167206 Z00.00 see Risk Assessment and Lifestyle Change Counseling section above Counseling 059761521 Z71 .9 Depression screening 171 148378 Z13.89 depression screening tool administer ed, entered into emr, scored and discussed, time greater than 7.5 minutes Active or passive immunization 605236937 Z23 Benign ess ential hypertension 6340468 I10 Degenerati ve joint disease involving multiple joints 980344599 M15.9 Peripheral venous insufficiency 78026353 I87.2 Sick sinus syndrome 3608 3008 I49.5 Atrial fibrillation 4943 6004 I48.91 [id number] Mariana Og LPN , [facility], OFFICE [address] [place] [address] 82080-821 6 10/30/2017 10:33:24 10/30/2017 11:59:18 Atrial fibrillation 91864274 I48.91 [id number] JEWEL Bray , [facility], OFFICE [address] [place] [address] 91436-570 6 11/05/2017 13:49:33 11/05/2017 15:17:03 Atrial fibrillation 83693500 I48.91 [id number] Mert Yin MD , [facility], OFFICE [address] [place] [address] 73272-326 6 12/20/2017 08:57:03 12/20/2017 09:43:58 Atrial fibrillation 95722175 I48.91 Obstructiv e sleep apnea syndrome 99864249 G47.33 Sick sinus syndrome 3608 3008 I49.5 Benign ess ential hypertension 0572830 I10 Eruption 012401795 R21 [id number] Mariana Og LPN , [facility], OFFICE [address] [place] [address] 07357-395 6 01/30/2018 10:38:59 01/30/2018 11:55:31 Atrial fibrillation 02624228 I48.91 [id number] MD CHELY Pinto, [facility], OFFICE [address] [place] [address] 24883-716 6 02/28/2018 11:37:50 02/28/2018 14:47:58 Acute maxillary sinusitis 17971739 J01.00 Acute uppe r respiratory infection 42951649 J06.9 [id number] Mert Yin MD , [facility], OFFICE [address] [place] [address] 58800-659 6 06/11/2018 10:10:05 06/11/2018 11:09:56 Obstructive sleep apnea syndrome 94311769 G47.33 Degenerati ve joint disease involving multiple joints 860967192 M15.9 Atrial fibrillation 4943 6004 I48.91 Impaired f asting glycemia 199857332 R73.01 Sick sinus syndrome 3608 3008 I49.5 [id number] Mert Yin MD , [facility], OFFICE [address] [place] [address] 34284-048 6 08/08/2018 15:22:26 08/08/2018 15:54:39 Sick sinus syndrome 11642857 I49.5 Peripheral venous insufficiency 34184042 I87.2 [id number] , [facility], OFFICE [address] [place] [address] 42627-707 6 08/15/2018 12:04:22 08/15/2018 14:24:44 Peripheral venous insufficiency 16394258 I87.2 [id number] Mert Yin MD , [facility], OFFICE [address] [place] [address] 07216-207 6 12/17/2018 10:55:12 12/18/2018 13:49:12 Adult health examination 448108794 Z00.00 see Risk Assessment and Lifestyle Change Counseling section above Counseling 828247645 Z71 .9 Depression screening 171 747120 Z13.89 depression screening tool administer ed, entered into emr, scored and discussed, time greater than 7.5 minutes Obstructiv e sleep apnea syndrome 91348729 G47.33 Benign ess ential hypertension 1536837 I10 Degenerati ve joint disease involving multiple joints 086404503 M15.9 Obesity 902840292 E66.9 Atrial fibrillation 4943 6004 I48.91 Peripheral venous insufficiency 65310460 I87.2 Sick sinus syndrome 3608 3008 I49.5 Mixed hyperlipidemia 267 969360 E78.2 [id number] Mert Yin MD , [facility], OFFICE [address] [place] [address] 52204-563 6 02/03/2019 12:00:04 02/03/2019 14:38:24 Morbid obesity 939594500 E66.01 Acquired p tosis of eyelid 780780011 H02.409 Pre-surger y evaluation 834894133 Z01.818 Benign ess ential hypertension 0605720 I10 Atrial fibrillation 4943 6004 I48.91 Obstructiv e sleep apnea syndrome 08435217 G47.33 Peripheral venous insufficiency 78410312 I87.2 Sick sinus syndrome 3608 3008 I49.5 [id number] Mert Yin MD , [facility], OFFICE [address] [place] [address] 65406-224 6 02/10/2019 09:06:59 02/11/2019 15:37:01 Atrial fibrillation 24006138 I48.91 Peripheral venous insufficiency 26144282 I87.2 Pre-surger y evaluation 747309952 Z01.170 [id number] Mert Yin MD , [facility], OFFICE [address] [place] [address] 91086-011 6 03/07/2019 14:23:39 03/07/2019 15:55:01 History of repair of eyelid 2518646317 9107 Z98.890 Diarrhea 20913816 R19.7 [id number] Mert Yin MD , [facility], OFFICE [address] [place] [address] 80926-915 6 04/10/2019 11:44:06 04/10/2019 13:15:16 Atrial fibrillation 19718959 I48.91 Laceration of lower leg 742135766 S81.812A [id number] Mert Yin MD , [facility], OFFICE [address] [place] [address] 87662-420 6 04/17/2019 07:30:05 04/17/2019 10:02:49 Removal of suture 10112839 Z48.02 Laceration of lower leg 233950357 S81.812D [id number] Rebecca Moore , [facility], OFFICE [address] [place] [address] 47190-837 6 05/02/2019 11:21:23 05/02/2019 13:58:20 Open wound of lower leg 358968199 S81.802D [id number] Mert Yin MD , [facility], OFFICE [address] [place] [address] 62516-845 6 05/15/2019 13:17:26 05/15/2019 15:39:34 Transient cerebral ischemia 559933052 G45.19 May 2019 Open wound of lower leg 142291536 S81.802D Atrial fibrillation 4943 6004 I48.91 Peripheral venous insufficiency 85258125 I87.2 [id number] Mert Yin MD , [facility], OFFICE [address] [place] [address] 89638-287 6 06/19/2019 08:26:45 06/20/2019 13:48:15 Atrial fibrillation 96710923 I48.91 Benign ess ential hypertension 7243055 I10 Peripheral venous insufficiency 39284484 I87.2 Abrasion o f skin of lower limb 502298894 S80.812D [id number] Mert Yin MD , [facility], OFFICE [address] [place] [address] 55426-723 6 08/11/2019 15:19:35 08/12/2019 14:23:26 Open wound of lower leg 359233036 S81.802D Edema of l ower extremity 800963361 R60.0 [id number] Mert Yin MD , [facility], OFFICE [address] [place] [address] 55715-617 6 08/14/2019 07:56:46 08/14/2019 09:27:28 Edema of lower extremity 929967551 R60.0 Open wound of lower leg 758596598 S81.802D [id number] Mert Yin MD , [facility], OFFICE [address] [place] [address] 80331-703 6 08/18/2019 15:23:21 08/18/2019 15:40:02 Edema of lower extremity 982003657 R60.0 [id number] Mert Yin MD , [facility], OFFICE [address] [place] [address] 36220-127 6 11/25/2019 08:57:16 11/27/2019 11:31:44 Atrial fibrillation 03029688 I48.91 Essential hypertension 37765540 I10 Peripheral venous insufficiency 18146102 I87.2 [id number] Mert Yin MD , [facility], OFFICE [address] [place] [address] 53940-633 6 06/21/2020 14:59:15 06/23/2020 17:26:13 Adult health examination 854271435 Z00.00 see Risk Assessment and Lifestyle Change Counseling section above Counseling 390108296 Z71 .9 including cardivascu lar risk reduction counseling Depression screening 171 755828 Z13.31 depression screening tool administer ed, entered into emr, scored and discussed, time greater than 7.5 minutes Screening for alcohol abuse 669902784 Z13.39 Atrial fibrillation 4943 6004 I48.91 Degenerati ve joint disease involving multiple joints 246230170 M15.9 Insomnia 764574626 G47.0 0 Obstructiv e sleep apnea syndrome 55739680 G47.33 Postmenopausal state 764 24141 Z78.0 Active or passive immunization 808042761 Z23 Closed fra cture of shaft of fibula 69551173 S82.402D [id number] Hope Fleming NP , [facility], OFFICE [address] [place] [address] 64255-790 6 08/27/2020 10:46:50 08/31/2020 10:48:01 Low back pain 510237860 M54.5 managed by [facility] Osteoarthritis of hip 23 3522651 M16.9 Right. saw [facility] for hip replacemen t consult. she would like a second opinion. referral sent. contact info given. tylenol #3 as needed. this can make you drowsy. not to take before driving. take extra care when walking. tylenol max 3000mg/day [id number] Mert Yin MD , [facility], OFFICE [address] [place] [address] 63987-741 6 12/20/2020 10:34:05 12/20/2020 11:41:59 Essential hypertension 51211208 I10 Peripheral venous insufficiency 58877014 I87.2 Atrial fibrillation 4943 6004 I48.91 Osteoarthritis of hip 23 4188366 M16.11 Obstructiv e sleep apnea syndrome 62063355 G47.33 Prediabetes 597173003 R7 3.03 [id number] Mert Yin MD , [facility], OFFICE [address] [place] [address] 01711-497 6 12/24/2020 10:25:18 12/28/2020 10:30:20 Morbid obesity 080594302 E66.01 Osteoarthr itis of right hip joint 5256366304 82970 M16.11 Atrial fibrillation 4943 6004 I48.91 Degenerati ve joint disease involving multiple joints 502878373 M15.9 Impaired f asting glycemia 526369780 R73.01 Obstructiv e sleep apnea syndrome 27989039 G47.33 Peripheral venous insufficiency 58792311 I87.2 Pre-surger y evaluation 439563234 Z01.628 [id number] MD CHELY Pinto, [facility], OFFICE [address] [place] [address] 67947-518 6 02/08/2021 10:46:30 02/17/2021 14:03:47 Essential hypertension 50751311 I10 History of total replacement of right hip joint 7807588509 97022 Z96.604 [id number] MD CHELY Pinto, [facility], OFFICE [address] [place] [address] 44001-951 6 06/23/2021 09:24:06 06/23/2021 10:30:50 Atrial fibrillation 29467057 I48.91 Adult heal th examination 611094315 Z00.00 see Risk Assessment and Lifestyle Change Counseling section above Counseling 021072683 Z71 .9 including cardiovasc ular risk reduction counseling Depression screening 171 914134 Z13.31 depression screening tool administer ed, entered into emr, scored and discussed, time greater than 7.5 minutes Screening for alcohol abuse 682867020 Z13.39 Essential hypertension 41046413 I10 dx: 2012 Obstructiv e sleep apnea syndrome 83091196 G47.33 Peripheral venous insufficiency 79591834 I87.2 Sick sinus syndrome 3608 3008 I49.5 Prediabetes 469724725 R7 3.03 Morbid obesity 939416760 E66.01 [id number] Mert Yin MD , [facility], OFFICE [address] [place] [address] 58772-774 6 07/11/2021 08:35:21 07/29/2021 10:09:51 Peripheral venous insufficiency 66679963 I87.2 Skin lesion 93791880 L98 .9 Chronic ki dney disease stage 3 309635191 N18.30 [id number] MD CHELY Pinto, [facility], OFFICE [address] [place] [address] 66870-984 6 08/09/2021 11:37:53 08/15/2021 09:29:04 Active or passive immunization 604919945 Z23 Advised on the Shingles vacc 08/09/21 as Impaired f asting glycemia 669816791 R73.01 Peripheral venous insufficiency 87060159 I87.2 Acute urticaria 12014201 9 L50.9 Obesity 371756331 E66.9 Initial integrated nutrition visit (after CCM phone call w/ pt 07/27). She's frustrated by inability to lose wt, w/ BMI at 37 and A1C at 6.2% , FBS 113 and IFG. Sent pt previously resources by mail on nutrition strategies for prediabete s and weight mgmt (states didn't receive). Today spoke with her more about limiting sodium intake to under 2000 mg in light of edema and BP/cardiac concerns. Receptive to coaching on regulating appetite and blood sugars with adjustment of food choices. See integrated case for more detail. Please schedule future PCP visits late AM on w/ Dr. Stewart for further f/u. Obesity code used. Prediabetes 695925041 R7 3.03 [id number] Mert Yin MD , [facility], OFFICE [address] [place] [address] 70010-846 6 09/05/2021 11:33:25 09/05/2021 12:09:13 Peripheral venous insufficiency 45644543 I87.2 Pain in lower limb 98566 006 M79.606 Chronic back pain 474717 002 G89.29 [id number] Mert Yin MD , [facility], OFFICE [address] [place] [address] 79033-808 6 12/20/2021 08:49:08 12/20/2021 09:34:32 Atrial fibrillation 64861188 I48.91 Essential hypertension 36290747 I10 dx: 2013 Active or passive immunization 537090781 Z23 Advised on the Shingles vacc 08/09/21 as Pt got Flu at [facility] 12/20/21 aS Peripheral venous insufficiency 44727513 I87.2 [id number] Kavitha Mayers RN BSN , [facility], OFFICE [address] [place] [address] 40330-910 6 12/26/2021 09:36:24 02/06/2022 14:31:16 [id number] Mert Yin MD FP, [facility], OFFICE [address] [place] [address] 54668-230 6 12/26/2021 15:09:46 12/27/2021 11:41:13 Pain of right shoulder joint 7908475589 0780510 M25.511 Chronic pain 28743819 G8 9.29 Essential hypertension 21008715 I10 dx: 2012 [id number] Mert Yin MD , [facility], OFFICE [address] [place] [address] 71273-003 6 03/16/2022 08:52:18 03/16/2022 09:39:30 Atrial fibrillation 89372076 I48.91 Essential hypertension 40442221 I10 dx: 2012 Morbid obesity 557670480 E66.01 HTN with BMI of 38 Peripheral venous insufficiency 46572266 I87.2 Prediabetes 607072142 R7 3.03 [id number] MD CHELY Pinto, [facility], OFFICE [address] [place] [address] 38766-418 6 08/10/2022 08:57:36 08/10/2022 13:56:08 Atrial fibrillation 51594504 I48.91 Essential hypertension 48168264 I10 dx: 2012 Peripheral venous insufficiency 01688377 I87.2 Degenerati ve joint disease involving multiple joints 183649234 M15.9 Open wound of lower leg 165412453 S81.802D [id number] SAYDA Najera, [facility], OFFICE [address] [place] [address] 65191-969 6 12/15/2022 15:29:14 12/15/2022 19:50:07 Active or passive immunization 815776909 Z23 [id number] Susan Barber RN FP, [facility], OFFICE [address] [place] [address] 74561-195 6 12/29/2022 10:37:29 01/01/2023 13:02:01 Essential hypertension 12236415 I10 dx: 2012 [id number] MD CHELY Pinto, [facility], OFFICE [address] [place] [address] 31205-340 6 01/26/2023 11:34:42 01/29/2023 07:49:14 Atrial fibrillation 88704612 I48.91 Essential hypertension 60091580 I10 dx: 2012 Peripheral venous insufficiency 79063713 I87.2 Hypothyroidism 46731366 E03.9 DX Jan 2023 Chronic ki dney disease stage 3 185670400 N18.30 Prediabetes 737546506 R7 3.03 [id number] Renetta Fernandes , [facility], OFFICE [address] [place] [address] 6 02/13/2023 08:22:57 02/13/2023 09:29:57 Adult health examination 764834595 Z00.00 see Risk Assessment and Lifestyle Change Counseling section above Depression screening 171 983437 Z13.31 depression screening tool administer ed Screening for alcohol abuse 152166296 Z13.39 Alcohol use screening tool administer ed Atrial fibrillation 4943 6004 I48.91 Chronic ki dney disease stage 3 303335019 N18.30 Hypothyroidism 90439827 E03.9 DX Jan 2023 -amiodaron e use Insomnia 148591784 G47.0 0 Lesion of skin of face 6762622433 06 L98.9 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 Prediabetes 790030414 R7 3.03 dx: Dec 2020 Degenerati ve joint disease involving multiple joints 305102387 M15.9 Essential hypertension 75999129 I10 dx: 2012 Morbid obesity 882836462 E66.01 HTN with BMI of 38 Obstructiv e sleep apnea syndrome 06252778 G47.33 Peripheral venous insufficiency 74868536 I87.2 Sick sinus syndrome 3608 3008 I49.5 Hypercoagu lability state 31912262 D68.69 atrial fib [id number] Mert Yin MD , [facility], OFF[facility] [address] [place] [address] 08/16/2023 09:17:06 08/16/2023 10:32:27 Atrial fibrillation 30883922 I48.91 tolerating Eliquis, no concerns Hypothyroidism 86164491 E03.9 DX Jan 2023 -amiodaron e useunable to tolerate levothyrox ine and stopped it a while back, normal TSHwill recheck in 6 mos. Prediabetes 447157707 R7 3.03 dx: Dectable , reminded of decreasing simple carbohydra sunil, continue exercise and repeat in 6 mos Essential hypertension 64458891 I10 dx: 2012HTN - at goal of less than 130/80 per the AHA guidelines . Continue meds and f/u in 6 mos. Discussed labs. Continue low salt diet of less than 1500 mg of sodium per day. The [employer] (AHA) recommends 30 minutes of moderate physical activity 5 days a week. A Mediterran wilber type of diet and a plant based diet is recommende d, review the website: [employer]. [employer]. The DASH diet is also recommende d. * Review this website: https://[employer]/al l-about-go od-and-jasbir ap for healthy inexpensiv e meals. Senile purpura 55924831 D69.2 stable Morbid obesity 530386228 E66.01 HTN with BMI of 38 Laboratory test result abnormal 637772499 R89.9 elevated Hgb and Hct, will recheck in 3 months Heart fail ure with normal ejection fraction 788543854 I50.[address] Carlisle, cardiology , followed regularlyo n Jardiance and diuretics and tolerating well [id number] JOSÉ MIGUEL CORMIER , [facility], OFFICE [address] [place] [address] 01/16/2024 14:47:12 01/16/2024 17:35:10 Dysuria 74357955 R30.0 Patient with urinary symptoms.H istory and exam and urinalysis consistent with UTI.No symptoms of pyelonephr itis.Discu ssed supportive and preventive measures.P atient instructed to follow up if not better or with new symptoms. Urinary tr act infectious disease 03208801 N39.0 Start Bactrim as aboveNorma l GFRRTO PRN symptoms persist or worsenCont inue hydrating, hygeine measures like wiping front to back [id number] Mert Yin MD , [facility], OFF[facility] [address] [place] [address] 02/15/2024 09:23:21 02/15/2024 10:30:08 Atrial fibrillation 96325997 I48.91 tolerating Eliquis, no concerns Prediabetes 467163007 R7 3.03 dx: Dectable , reminded of decreasing simple carbohydra sunil, continue exercisere check today Active or passive immunization 395160764 Z23 Shingles: Advised on the 08/09/21 as Advised 02/15/24 as Flu: [facility] 12/20/21 as Completed 02/15/24 a Dry eyes 441267725 H04.1 23 Reports of persistent tearing in one eye. Currently using artificial tear gel once daily.-Con tinue artificial tear gel once daily. Chronic ki dney disease stage 3 998761715 N18.30 consistent GFR at 55-59 - no change Essential hypertension 27140160 I10 dx: 2012HTN - at goal of less than 130/80 per the AHA guidelines . Continue meds and f/u in 6 mos. Discussed labs. Continue low salt diet of less than 1500 mg of sodium per day. The [employer] n (AHA) recommends 30 minutes of moderate physical activity 5 days a week. A Mediterran wilber type of diet and a plant based diet is recommende d, review the website: [employer]. [employer]. The DASH diet is also recommende d. * Review this website: https://[employer]/al l-about-go od-and-jasbir ap for healthy inexpensiv e meals. Hypercoagu lability state 97275938 D68.69 atrial fib Heart fail ure with normal ejection fraction 541889793 I50.[address] Carlisle, cardiology , followed regularlyE liquis, Jardiance, Losartan, Metoprolol , and Torsemide. Noted previous UTI with Jardiance use.-Tita nue current medication s. Monitor for recurrent UTIs. Health Concerns Section Related Observation LastModified by Organization Detai ls LastModified Time None Recorded Concern Status LastModified by Organization Details LastModified Time None Recorded Advance Directives Directive None Recorded Payers Encounter Date Sequence Insurance Name Policy Number Policy Hoang Covered Member ID Hoang Member ID Guarantor Name 01/26/2023 1 [place] [employer] Yina Rutledge [id number] Yina Rutledge 01/26/2023 2 [place] [id number] Yina Rutledge [id number] Yina M Pluta 02/13/2023 1 [place] [employer] Yina M Pluta [id number] Yina M Pluta 02/13/2023 2 [place] [id number] Yina M Pluta [id number] Yina M Pluta 08/16/2023 1 [place] [employer] Yina M Pluta [id number] Yina M Pluta 08/16/2023 2 [place] [id number] Yina M Pluta [id number] Yina M Pluta 01/16/2024 1 [place] [employer] Yina M Pluta [id number] Yina M Pluta 01/16/2024 2 [place] [id number] Yina M Pluta [id number] Yina M Pluta 02/15/2024 1 [place] [employer] Yina M Pluta [id number] Yina M Pluta 02/15/2024 2 [place] [id number] Yina M Pluta [id number] Yina M Pluta Notes Date Note Type Note Provider Name and Address Organization Details Recorded Time 3 text/html [facility] Atrial FibrillationReported bypatient.Durationchronic (July 2017) Control:usually well controlled; improved since last visit; Rate control with beta malik; Rhythm control with amiodorone; Anticoagulation for Stroke prevention Coumadin; taking medications as directed Associated Symptoms:no dizziness; No chest pain; No rapid heart rate; No shortness of breath; no lower extremity swelling Context:no congestive heart failure (28975); no hypertension; no strokeVMG HypertensionReported bypatient.Duration:Age / year diagnosed (chronic); ASCVD 10-year risk Context:No ischemic heart disease; No kidney disease; No history of CVA; No congestive heart failure; No history of transient ischemic attacks; No peripheral vascular disease; No history of diabetes Control:BP Goal less than (130/80); Treated with diet and exercise; Treated with medications; Patient understands medications are to lower blood pressure Compliance:Compliant with medications; Compliant with diet; Compliant with exercise; Compliant with follow-up visits Barriers to CareNo identified barriers to care Self Care:not doing home bp monitoring Associated Symptoms:No chest pain; No shortness of breath; No edema; No fatigue; No palpitations; No decline in exercise capacity; No snoring Ability to Manage Self CareOn how confident the patient feels in ability to self manage condition the patient selects 9 with 10 being very confident and [address] Carlisle took off amlodipine due to low BPJardiance started by Dr Ledesma BP 160/90 just 2 days in a row, normal todayused to be on amiodarone, and TSH checked yearly due to side effect Mert Yin MD [address] [place] [address], [phone], [facility] [place]/28/2023 19:48:19 3 text/html Physical Exam/FemaleReported bypatient.PHAPatient is here for a Wellness Visit. She describes her health status as good. Patient's health is the same as last year.Risk Assessment and Lifestyle Change Counseling 65+ (Medicare)Reported bypatient.Coronary Artery Disease Risk Assessment:Family History of Coronary Artery Disease; No personal history of diabetes; No history of peripheral vascular disease, AAA, or carotid disease; No personal history of coronary artery disease;Patient has higher than average risk of coronary artery disease Breast Cancer Risk Assessment:No family history of breast cancer; No history of breast cancer or dcis Colon Cancer Risk Assessment:No family history of pre cancerous colon polyps or cancer; Patient has low risk for colon cancer Lung Cancer Risk Assessment:Has used cigarettes(quit 1999);Former smoker quit more than 15 years ago; No symptoms of Lung Cancer Fracture Risk Assessment:No unexplained fracture; No use of corticosteroids; No anti-seizure medication;Abnormal bone density osteopenia; Has adequate calcium intake; Taking Vitamin D supplement; No chronic use of proton pump inhibitors; Patient has higher than average risk for osteoporotic bone fractures Cognitive/Behavioral Risk Assessment:No personal history of mental illness; Do you or anyone else have concerns about your memory? no; Alcohol use counseled less than 7.5 minutes; Reviewed depression screening less than 7.5 minutes Safety Risk Assessment:Has grab bars in bathroom; Has rails on steps;History of falls 1-3 in past 12 months; Do you feel safe in your current relationship?YES; Have you ever been a victim of physical/emotional/sexual abuse?NO Functional Status:Patient does not need help with preparing meals, transportation, shopping, taking medicine, managing finances, or other activities of daily living.; Patient does not have visual loss that interferes with daily activities; Does not live alone; Patient was not unsteady and did not take longer than 30 seconds during the timed get up and go test.;Patient reports 2 falls in the past 6 months.; Pt has hearing aids Diet:Counseled about appropriate portion size; Counseled about eating a diet low in trans and saturated fats and high in fiber, fruits and vegetables; Counseled about appropriate calcium intake and good dietary sources of calcium.; Counseled about the importance of maintaining a positive calcium balance and taking 1000 iu Vitamin D daily. Exercise counseling:Discussed the importance of daily physical activity; Discussed the importance of weight bearing exercise Safety:Counseled about avoiding excessive and unsafe alcohol intake; Counseled about fall risk from throw rugs and the need for hand rails on steps and in bathVMG HypertensionReported bypatient.Duration:Age / year diagnosed (chronic); ASCVD 10-year risk Context:No ischemic heart disease; No kidney disease; No history of CVA; No congestive heart failure; No history of transient ischemic attacks; No peripheral vascular disease; No history of diabetes Control:BP Goal less than (130/80); Treated with diet and exercise; Treated with medications; Patient understands medications are to lower blood pressure Compliance:Compliant with medications; Compliant with diet; Compliant with exercise; Compliant with follow-up visits Barriers to CareNo identified barriers to care Self Care:not doing home bp monitoring Associated Symptoms:No chest pain; No shortness of breath; No edema; No fatigue; No palpitations; No decline in exercise capacity; No snoring Ability to Manage Self CareOn how confident the patient feels in ability to self manage condition the patient selects 9 with 10 being very confident and 1 being very low confidence [facility] MD [address] [place] [address], [phone], [facility] 02/14/2023 10:06:38 4 text/html Patient presents for follow-up of their hypertension. Updates from last visit:stopped taking levothyroxine - unable to toleratehas not used it in a whilelevels may have returned to normal since stopping amiodaronestopped duloxetine also due to side effectshas not had any body aches Home blood pressures: no Taking medications daily as prescribed. Side Effects: None Low salt diet: {{yes* no}} Exercise: yes Caffeine intake: Alcohol consumption: Doesn't Smoke Daily stress level: minimal Denies any new shortness of breath, cough, dizziness, chest pain, nausea, vomiting, leg swelling or weakness. An independent historian contributed to the patient's information for this visit: {{yes no*}}. Patient is {{able* not able}} to manage his medications Mert Yin MD [address] [place] [address], [phone], [facility] 08/19/2023 13:23:49 4 text/html Urinary FrequencyReported bypatient.SymptomsSymptom s began 7 days ago;Urinary frequency;Burning;Urgency ; No fever; No chills; No back pain; No nausea; No vomiting; No frequent previous UTI No HX UTIs.No HX kidney stones, pyelonephritis.Recent diarrhea has since resolved. JOSÉ MIGUEL CORMIER [address] [place] [address], [phone], [facility] 01/16/2024 16:47:37 4 text/html Patient informed and consents to use of AI assisted recording to improve documentation of visit.Word substitution may have occurred and may have gone unnoticed and uncorrected. Patient presents for follow-up of their hypertension.Updates from last visit: The patient, with a history of heart disease and a pacemaker, presents for a routine follow-up. She expresses frustration with her pharmacy's medication management, but overall, she reports feeling well. She has been adhering to her prescribed medications, including Eliquis, Jardiance, losartan, metoprolol, and torsemide.The patient recently experienced a urinary tract infection (UTI), which she attributes to her use of Jardiance. She expresses concern about the risk of UTIs associated with this medication, but she understands its cardiovascular benefits. She reports maintaining good personal hygiene and is surprised by the UTI occurrence.The patient also reports a persistent issue with one eye being watery. She has been using a gel eye drop once daily, which seems to provide some relief. She expresses uncertainty about the cause of this symptom but is willing to continue with the current treatment.The patient is also under the care of a court security officer due to her heart condition and pacemaker. She reports a recent remote device check and has a follow-up appointment scheduled for April. She requests that her current medical information be sent to her court security officer.UTI last month, resolved. Home blood pressures: noTaking medications daily as prescribed.Side Effects: NoneLow salt diet: {{yes* no}}Exercise: yesCaffeine intake:Alcohol consumption:Doesn't SmokeDaily stress level: minimal Denies any new shortness of breath, cough, dizziness, chest pain, nausea, vomiting, leg swelling or weakness. An independent historian contributed to the patient's information for this visit: {{yes no*}}.Patient is {{able* not able}} to manage his medications Mert Yin MD [address] [place] [address], [phone], [facility] 02/16/2024 09:55:05 OBGyn Episode No OBEpisode recorded.
[2024-04-10] MEDS: Metoprolol Succinate ER 50 MG TAB.ER.24H PO (21:09)
[2024-04-10] MEDS: Apixaban 5 MG TABLET PO (21:09)
--- NOTE | 2024-04-10 21:24 | PC.NURSE ---
Addendum entered by Shaheen Henriquez 04/10/24 22:28: bedside transported with this rn bedside handover to rn to confirm lasix dosage Original Note: MD Palm made aware of BP, inagreement to give 2100 metoprolol dose. no further interventions at this time. [place] [facility] [place] [facility] [place], awaiting transport.
[2024-04-11 03:09] VITALS: BP 119/87; PULSE 100; RESP 20; TEMP 37.3; O2SAT 97
--- NOTE | 2024-04-11 07:00 | CA_ITS ---
Transthoracic Echocardiogram Patient (Last, First, Middle): Yina Rutledge, Gender: Female Date of : 1940 Age: 83 Procedure Date: 04/11/2024 Procedure Type: Transthoracic Echocardiogram [place] [facility] [place]: 162.56 cm Weight: 103.42 kg BSA: 2.07 m2 Heart Rate: bpm BP: 119 / 87 mmHg Wellness Specialist: CHERYLE Referring MD: Alvino VALDEZ Symptoms: CHF exacerbation Study Quality: Adequate w/Contrast ECG Rhythm: Atrial Fibrillation Conclusions: - The left ventricular systolic function is normal. The calculated ejection fraction is 55% by biplane method. - No obvious valvular pathology seen on this study. Findings Procedure Information Contrast agent, definity, is being given per protocol without apparent complications. Left Ventricle Normal left ventricular cavity size. There is normal left ventricular wall thickness. The left ventricular systolic function is normal. The calculated ejection fraction is 55% by biplane method. There is no evidence of regional wall motion abnormalities. Diastolic function is indeterminate on the basis of available data. Right Ventricle Normal right ventricular cavity size. There is mildly decreased right ventricular systolic function. Atria Both atria are normal in size. Aortic Valve There is a normal trileaflet aortic valve. There is no aortic valve stenosis. There is no aortic valve regurgitation. Mitral Valve The mitral valve appears normal. There is no mitral valve regurgitation. There is no mitral valve stenosis. Pulmonic Valve The pulmonic valve is likely normal. Tricuspid Valve There is trace tricuspid valve regurgitation. There is no evidence of pulmonary hypertension. Great Vessels The asc aorta is normal in size. Venous The inferior vena cava is normal in size and collapses greater than 50% with inspiration. Pericardium/Pleural There is no evidence of pericardial effusion. Prior Study Comparison No significant change compared to prior study dated: 03/16/2023. Recommendations, Care & Conclusions No obvious valvular pathology seen on this study. Measurements 2D Linear Measurements IVSd: 0.97 0.6-0.9/0.6-1.0 cm LVIDd: 3.78 3.9-5.3/4.2-5.9 cm LVIDd Index: 1.83 2.4-3.2/2.2-3.1 cm/m2 LVIDs: 2.54 2.0-3.6 cm LVPWd: 0.96 0.7-1.1 cm LA Diam: 3.60 2.7-3.8/3.0-4.0 cm LAIDs Index: 1.74 1.5-2.3 cm/m2 LV Mass: 137.34 67-162/88-224 g LV Mass Index: 66.35 43-95/49-115 g/m2 LVOT Diam: 2.00 3.0+(-)1.3 cm 2D Systolic Function EF 4C: 49.40 >55% EF 2C: 59.80 >55% EF BiP: 54.70 >55% Mitral Valve MV Pk E: 0.80 MV Decel Time: 199.00 E'Lateral: 9.75 E'Medial: 6.82 E/E' Med: 11.70 E/E' Lat: 8.20 PHT: 58.00 MVA PHT: 3.79 Decel [place]: 4.00 Aortic Valve AoV Pk Lamont: 0.95 AoV Mn Lamont: 0.70 AoV VTI: 0.18 AoV Pk Grad: 4.00 Aov Mn Grad: 2.00 IVET Cont.VTI: 2.06 LVOT LVOT Pk Lamont: 0.63 LVOT Mn Lamont: 0.45 LVOT VTI: 0.12 LVOT Pk Grad: 2.00 LVOT Mn Grad: 1.00 LVOT Diam: 2.00 LVOT Area: 3.14 Diastolic Function MV Pk E: 0.80 E'Medial: 6.82 E/E' Med: 11.70 E' Laterial: 9.75 E/E' Lat: 8.20 Right Ventricle TAPSE (mm): 12.00 TVS' Lamont: 7.03 Tricuspid Valve TR Pk Lamont: 1.56 TR Pk Grad: 10.00 RA Press: 3.00 RVSP: 13.00 Great Vessels Aorta Sinus of Valsalva: 3.20 2.0-3.5 cm Ao Asc: 2.90 2.1-3.4 cm Pulmonary Valve PV Pk Lamont: 0.56 Peak PV Grad: 1.00 Updated in Other Vendor System with Status of Final Per Rob MD electronically signed on 04/11/2024 12:06:42 PM with status of Final
[2024-04-11 07:15] LABS: B Type Natriuretic Peptide 236 pg/mL (<100)
[2024-04-11 07:19] LABS: Anion Gap 17 (12-20); Blood Urea Nitrogen 15 mg/dL (9-16); Calcium 9.3 mg/dL (8.4-10.2); Carbon Dioxide 27 mmol/L (22-29); Chloride 101 mmol/L (96-108); Creatinine Clr Calc Pharmacy 62.6; Estimated Glomerular Filt Rate > 60; Glucose Random 101 mg/dL (60-115); Magnesium 2.2 mg/dL (1.6-2.6); Potassium 3.9 mmol/L (3.3-5.1); Sodium 141 mmol/L (135-145)
[2024-04-11 08:00] VITALS: BP 135/77; PULSE 98; RESP 20; TEMP 36.8; O2SAT 96
[2024-04-11] MEDS: Cholecalciferol (Vitamin D3) 25 MCG TABLET 125 MCG PO (09:36)
[2024-04-11] MEDS: Empagliflozin 10 MG TABLET PO (09:36)
[2024-04-11] MEDS: Losartan Potassium 50 MG TABLET 100 MG PO (09:36)
[2024-04-11] MEDS: Apixaban 5 MG TABLET PO ×2 (09:36→20:18)
--- NOTE | 2024-04-11 10:08 | P.CONCA_ITS ---
History of Present Illness History of Present Illness Date of Service: 04/11/24 Chief complaint: CHF exacerbation Narrative: This is a cardiology consultation regarding shortness of breath. She has generally seen by Dr. Chopra. Last seen yesterday. According to his note as well as on discussing with the patient, it seems that she has been getting short of breath. She is short of breath even with mild exertion and that led to ER visit/hospitalization. Also, it seems that she has been detected to have atrial fibrillation for the last several weeks and it could have been a precipitating factor for the congestive heart failure. She has been given IV diuretics and she is currently on a drip. She states that she is feeling better. Review of Systems 2 Review of Systems: Yes all other systems are reviewed and are negative Constitutional: Constitutional: Reports as per HPI and Reports no additional constitutional complaints Eyes: Eyes: Reports as per HPI and Denies no additional eye complaints ENT: Denies system reviewed and no additional complaints, except as documented and Reports as per HPI Cardiovascular: Cardiovascular: Reports as per HPI, Reports no additional cardiovascular complaints, Denies acrocyanosis, Denies cool extremities, Denies chest pain, Reports leg edema, Denies lightheadedness, Denies palpitations and Reports dyspnea Respiratory: Respiratory: Reports as per HPI, Denies no additional respiratory complaints and Reports dyspnea Gastrointestinal: Gastrointestinal: Reports as per HPI and Denies no additional gastrointestinal complaints Genitourinary: Genitourinary: Reports as per HPI Musculoskeletal: Musculoskeletal: Reports no additional musculoskeletal complaints and Reports as per HPI Integumentary/Breasts: Skin/Breast: Reports system reviewed and no additional complaints, except as docu Neurologic: Reports system reviewed and no additional complaints, except as documented and Reports as per HPI Psychiatric: Psychiatric: Reports no additional psychiatric complaints and Reports as per HPI Endocrine: Endocrine: Reports no additional endocrine complaints, Reports as per HPI and Denies palpitations Hematologic/Lymphatic: Hematologic/Lymphatic: Reports no additional hematologic/lymphatic complaints and Reports as per HPI Allergic/Immunologic: Allergic/Immunologic: Reports no additional allergic/immunologic complaints and Reports as per HPI [facility] Past Medical History Medical History Persistent atrial fibrillation History of cardioversion Arthritis Sick sinus syndrome Cardiac pacemaker in situ (HFpEF) heart failure with preserved ejection fraction Hypertension TIA (transient ischemic attack) Wears dentures Wears hearing aid in both ears Hx of cardiac pacemaker Degenerative joint disease Peripheral venous insufficiency Transient cerebral ischemia Hearing loss Retinal artery occlusion Obstructive sleep apnea Obesity (BMI 30-39.9) Surgical History Surgical History History of right hip replacement Hx of tubal ligation Hx laparoscopic cholecystectomy History of esophagogastroduodenoscopy (EGD) Hx of colonoscopy Status post ORIF of fracture of ankle (~1984) History of cataract surgery (~2017) Social History Social History Household Members: Spouse Housing: House Are you a primary intensive care medicine specialist to a significant other at home: No Do you presently have visiting nurse or other home services: No Alcohol intake: never Patient Tobacco Use Status: Former Tobacco user Tobacco use type: Cigarette Smoked in Last 30 Days: No Use of substances other than those prescribed or required for medical reasons: No Currently Displaying Signs/Symptoms of Drug Intoxication Withdrawal: No Have you been hit, kicked, punched, or otherwise hurt by someone within the past year? If so, by whom?: No Do you feel safe in your current relationship?: Yes Is there a partner from a previous relationship who is making you feel unsafe now?: No Are you made to feel afraid or neglected: No Advance Directives: Yes Advance Directives on File: Yes Advance Directives Date on File: 01/14/21 Do you have a plan to hurt others: No Plan Recently lost weight without trying: Yes How much weight loss: 2-13 pounds Eating poorly because of decreased appetite: No Nutrition screen score: 3 Nutrition Risks: No Nutritional Risk Patient : No : No Poor oral hygiene: No service: No Current occupational status: retired Current occupation: right handed Meds Allergies Allergy/AdvReac Type Severity Reaction Status Date / Time Seasonal Allergies Allergy Mild itching Verified 04/10/24 13:25 and sneezing Active Medications: Current Medications Acetaminophen (Acetaminophen 325 Mg Tablet) 650 mg PO Q6H PRN PRN Reason: Pain, Mild 1-3,fever,headache Apixaban (Apixaban 5 Mg Tablet) 5 mg PO BID [facility] Last Admin: 04/11/24 09:36 Dose: 5 mg Calcium Carbonate (Calcium Carbonate 750 Mg Tab.Chew) 750 mg PO Q4H PRN PRN Reason: Heartburn Empagliflozin (Empagliflozin 10 Mg Tablet) 10 mg PO DAILY [facility] Last Admin: 04/11/24 09:36 Dose: 10 mg Furosemide 200 mg/ Sodium (Chloride) 100 mls @ 2.5 mls/hr IVCONT .Q24H [facility] Last Admin: 04/10/24 18:07 Dose: 5 mg/hr, 2.5 mls/hr Losartan Potassium (Losartan Potassium 50 Mg Tablet) 100 mg PO DAILY [facility]; Protocol Last Admin: 04/11/24 09:36 Dose: 100 mg Magnesium Hydroxide (Milk Of Magnesia 30 Ml Oral.Susp) 30 ml PO DAILY PRN PRN Reason: Constipation Melatonin (Melatonin 3 Mg Tablet) 6 mg PO BEDTIME PRN PRN Reason: Insomnia Metoprolol Succinate (Metoprolol Succinate Er 50 Mg Tab.Er.24h) 50 mg PO BEDTIME [facility]; Protocol Last Admin: 04/10/24 21:09 Dose: 50 mg Ondansetron HCl (Ondansetron Hcl 4 Mg/2 Ml Vial) 4 mg IVPUSH Q8H PRN PRN Reason: Nausea and Vomiting Sodium Chloride (0.9 % Sodium Chloride Flush 3 Ml Syringe) 3 ml IVFLUSH QSHIFT [facility] Last Admin: 04/11/24 08:00 Dose: Not Given Vitamin D (Cholecalciferol (Vitamin D3) 25 Mcg Tablet) 125 mcg PO DAILY [facility] Last Admin: 04/11/24 09:36 Dose: 125 mcg Home Medications ?Medication ?Instructions ?Recorded ?Confirmed ?Last Taken ?Type apixaban 5 mg tablet (Eliquis) 5 mg PO BID 10/12/20 04/10/24 04/10/24 History acetaminophen 325 mg tablet 650 mg PO Q6H PRN Pain 01/04/21 04/10/24 Unknown History (Tylenol) losartan 100 mg tablet 100 mg PO DAILY 03/03/22 04/10/24 04/10/24 History cholecalciferol (vitamin D3) 125 125 mcg PO DAILY 04/10/24 04/10/24 04/10/24 History mcg (5,000 unit) tablet (Vitamin D3) torsemide 5 mg tablet 2.5 mg PO DAILY 04/10/24 04/10/24 04/10/24 History vit C 250 mg-vit E 90 mg-zinc 40 1 tab PO BID 04/10/24 04/10/24 04/10/24 History mg-copper 1 [id number] capsule (PreserVision AREDS-2) Physical Exam 2 Vital Signs: Vital Signs: Last Vital Signs Temp 98.3 F 04/11/24 08:00 Pulse 98 04/11/24 08:00 Resp 20 04/11/24 08:00 BP 135/77 04/11/24 08:00 Pulse Ox 96 04/11/24 08:00 O2 Del Method Nasal Cannula 04/11/24 08:00 O2 Flow Rate 1 04/11/24 08:00 BMI result Body Mass Index 39.1 Const: General: comfortable and no acute distress O rientation/consciousness: patient oriented x3 HEENT: Other: Unremarkable Head: Yes normal to inspection Neck: Neck: Yes normal visual inspection Chest: Chest palpation & inspection: normal inspection of the chest Resp: Auscultation: clear to auscultation bilaterally Cardio: Palpation: normal PMI Heart sounds: S1 normal heart sound present, S2 normal heart sound present, no gallops, no murmurs and no rubs GI: Palpation (GI): Soft to palpation Back/Spine/Pelvis: Other: unremarkable Skin: General skin exam: no rashes or lesions noted Neuro: General: patient oriented x3 Extrem: Other: 1+ edema General: Yes normal to inspection Psych: Mental Status: mental status grossly normal Objective Labs and Meds 04/10/24 14:15 04/11/24 06:07 Lab results: Laboratory Results - last 24 hr 04/10/24 04/11/24 14:15 06:07 WBC 5.9 RBC 4.93 D Hgb 16.0 D Hct 47.4 H D MCV 96.1 MCH 32.5 MCHC 33.8 RDW 13.2 Plt Count 197 MPV 10.0 Immature Gran % (Auto) 0.3 Neut % (Auto) 59.2 Lymph % (Auto) 28.4 Ada % (Auto) 8.8 Eos % (Auto) 2.5 Baso % (Auto) 0.8 Lymph # (Auto) 1.7 Ada # (Auto) 0.5 Eos # (Auto) 0.2 Baso # (Auto) 0.1 Abs Immat Gran (auto) 0.02 Absolute Neuts (auto) 3.5 Absolute Nucleated RBC 0.000 Nucleated RBC % (auto) 0.0 PT 17.6 H INR 1.5 H Sodium 139 141 Potassium 3.9 3.9 Chloride 109 H 101 Carbon Dioxide 23 27 Anion Gap 11 L 17 BUN 12 15 Creatinine 0.93 0.81 Estim Creat Clear Calc 54.6 62.6 Estimated GFR 58 > 60 Random Glucose 94 101 Calcium 8.5 D 9.3 D Magnesium 2.2 Total Bilirubin 0.7 AST 27 ALT 19 Alkaline Phosphatase 97 Troponin I High Sens < 2.7 B-Natriuretic Peptide 337 H 236 H Total Protein 7.2 Albumin 3.7 Lipase 24 TSH 1.76 Free T4 1.17 Influenza Type A (PCR) NEGATIVE Influenza Type B (PCR) NEGATIVE RSV RNA Qual (PCR) NEGATIVE SARS-CoV-2 RNA (RT-PCR) NEGATIVE ECG Interpretation: EKGs suggestive of atrial flutter versus fibrillation-more so flutter appearing; rate of 100/Min. Imaging Radiologist's impression: Impressions Chest X-Ray 04/10/24 13:24 IMPRESSION: 1. Dual-lead pacer with cardiac enlargement. 2. COPD without focal pneumonia seen. 3. Mild prominence of the interstitial markings with subtle Richard lines could suggest mild CHF. Electronically signed by: Sandro Alas MD 04/10/2024 02:13 PM [facility] Assessment and Plan (1) Acute on chronic diastolic (congestive) heart failure: Status: Acute (2) Cardiac pacemaker in situ: Status: Acute (3) Persistent atrial fibrillation: Status: Acute Plan Per pacemaker interrogation yesterday, atrial fibrillation over the last 6 months or so. That might be the etiology for congestive heart failure. She is on Lasix drip but only at 5 mg an hour which will make it 120 mg for 24 hours. We can change that to Lasix 80 mg IV b.i.d. for another day. Already on Jardiance at home. Diuretic is torsemide 2.5 mg for home dose, but probably needs some changes before discharge. With regard to atrial fibrillation, we can start amiodarone loading. Cardioversion in 2-3 weeks after adequate load. Discussed with patient. Discussed with . Procedures Date of Service Date of Service: 04/11/24
--- NOTE | 2024-04-11 11:20 | MHC.CM.PN ---
IMM 04/11. Pt self-care, lives at home with her and sister, and uses a cane. Pts will transport her home at discharge. HCP on file and verified. PCP: Dr. Mert Miller
[2024-04-11 12:00] VITALS: BP 119/69; PULSE 83; RESP 20; TEMP 36.7; O2SAT 94
[2024-04-11] MEDS: Furosemide 100 MG/10 ML VIAL 80 MG IVPUSH ×2 (12:05→18:15)
[2024-04-11] MEDS: Amiodarone HCL 200 MG TABLET 400 MG PO ×2 (12:06→20:18)
--- NOTE | 2024-04-11 14:16 | P.PNIM_ITS ---
Subjective Subjective Date of Service: 04/11/24 Interval History: Feels better denies chest pain or shortness of breath, no palpitations complaining of bilateral leg pain left greater than right, history of trauma to left leg in the past, diuresed greater than 1.5 overnight currently on IV Lasix drip. Tele monitor showed atrial fibrillation heart rate less than 100. Review of Systems All other system reviewed and are negative Physical Exam 2 Vital Signs: Vital Signs: Last Vital Signs Temp 98.0 F 04/11/24 12:00 Pulse 83 04/11/24 12:00 Resp 20 04/11/24 12:00 BP 119/69 04/11/24 12:00 Pulse Ox 94 04/11/24 12:00 O2 Del Method Room Air 04/11/24 12:00 O2 Flow Rate 1 04/11/24 08:00 BMI result Body Mass Index 39.1 Const: Other: General awake alert x3, resting comfortably in no acute distress. Neck no JVD. CVS irregular rate rhythm, Respiratory lungs clear to auscultation, no respiratory distress, no wheeze, no rhonchi. Gastrointestinal abdomen soft, non tender, bowel sounds audible Extremities bilateral pitting edema/erythema and warmth dorsum of left lower leg Neuro non focal Skin erythema left lower leg Psych appropriate affect Objective Data Active Medications Acetaminophen (Acetaminophen 325 Mg Tablet) 650 mg PO Q6H PRN PRN Reason: Pain, Mild 1-3,fever,headache Amiodarone HCl (Amiodarone Hcl 200 Mg Tablet) 400 mg PO BID [facility] Last Admin: 04/11/24 12:06 Dose: 400 mg Documented By: JAS Apixaban (Apixaban 5 Mg Tablet) 5 mg PO BID [facility] Last Admin: 04/11/24 09:36 Dose: 5 mg Documented By: JAS Calcium Carbonate (Calcium Carbonate 750 Mg Tab.Chew) 750 mg PO Q4H PRN PRN Reason: Heartburn Empagliflozin (Empagliflozin 10 Mg Tablet) 10 mg PO DAILY [facility] Last Admin: 04/11/24 09:36 Dose: 10 mg Documented By: JAS Furosemide (Furosemide 100 Mg/10 Ml Vial) 80 mg IVPUSH BID@0900,1800 [facility]; Protocol Losartan Potassium (Losartan Potassium 50 Mg Tablet) 100 mg PO DAILY [facility]; Protocol Last Admin: 04/11/24 09:36 Dose: 100 mg Documented By: JAS Magnesium Hydroxide (Milk Of Magnesia 30 Ml Oral.Susp) 30 ml PO DAILY PRN PRN Reason: Constipation Melatonin (Melatonin 3 Mg Tablet) 6 mg PO BEDTIME PRN PRN Reason: Insomnia Metoprolol Succinate (Metoprolol Succinate Er 50 Mg Tab.Er.24h) 50 mg PO BEDTIME [facility]; Protocol Last Admin: 04/10/24 21:09 Dose: 50 mg Documented By: OMER Ondansetron HCl (Ondansetron Hcl 4 Mg/2 Ml Vial) 4 mg IVPUSH Q8H PRN PRN Reason: Nausea and Vomiting Sodium Chloride (0.9 % Sodium Chloride Flush 3 Ml Syringe) 3 ml IVFLUSH QSHIFT [facility] Last Admin: 04/11/24 08:00 Dose: Not Given Documented By: JAS Non-Admin Reason: IV Running Vitamin D (Cholecalciferol (Vitamin D3) 25 Mcg Tablet) 125 mcg PO DAILY [facility] Last Admin: 04/11/24 09:36 Dose: 125 mcg Documented By: JAS Labs 04/10/24 14:15 04/11/24 06:07 Labs: Laboratory Results - last 24 hr 04/10/24 04/11/24 14:15 06:07 MCV 96.1 MCH 32.5 MCHC 33.8 RDW 13.2 Plt Count 197 MPV 10.0 Immature Gran % (Auto) 0.3 Neut % (Auto) 59.2 Lymph % (Auto) 28.4 Holt % (Auto) 8.8 Eos % (Auto) 2.5 Baso % (Auto) 0.8 Lymph # (Auto) 1.7 Holt # (Auto) 0.5 Eos # (Auto) 0.2 Baso # (Auto) 0.1 Abs Immat Gran (auto) 0.02 Absolute Neuts (auto) 3.5 Absolute Nucleated RBC 0.000 Nucleated RBC % (auto) 0.0 PT 17.6 H INR 1.5 H Anion Gap 11 L 17 Estim Creat Clear Calc 54.6 62.6 Estimated GFR 58 > 60 Random Glucose 94 101 Calcium 8.5 D 9.3 D Magnesium 2.2 Total Bilirubin 0.7 AST 27 ALT 19 Alkaline Phosphatase 97 Troponin I High Sens < 2.7 B-Natriuretic Peptide 337 H 236 H Total Protein 7.2 Albumin 3.7 Lipase 24 TSH 1.76 Free T4 1.17 Influenza Type A (PCR) NEGATIVE Influenza Type B (PCR) NEGATIVE RSV RNA Qual (PCR) NEGATIVE SARS-CoV-2 RNA (RT-PCR) NEGATIVE Assessment and Plan (1) Acute on chronic diastolic (congestive) heart failure: Status: Acute (2) Acute exacerbation of chronic heart failure: Status: Acute (3) Persistent atrial fibrillation: Status: Acute (4) Cellulitis: Status: Acute Plan 83-year-old female with a PMH significant for?persistent AFib on Eliquis, sick sinus syndrome s/p pacemaker in place, HFpEF, and HTN who presents to the ED from Cardiology office for evaluation of SOB concerning for decompensated CHF exacerbation. Pt will be admitted to the hospital for treatment and further evaluation of acute hypoxic respiratory failure in the setting of acute decompensated HFpEF exacerbation. Acute hypoxic respiratory failure in setting of acute decompensated HFpEF exacerbation Feels better with less shortness of breath and decrease lower extremity edema On IV Lasix 5 milligram/hours BNP trending down, >2 liter neg Echo showed EF 55%, indeterminate diastolic function,no WMA Likely secondary to persistent AFib and inadequate diuresis Case discussed with Dr. Rob he recommend to change IV Lasix drip to IV Lasix 80 mg twice daily times 24 hours and reassess Continue Jardiance Low-salt diet, Titrate supplemental O2 >92, wean as tolerated, follow BMP,1/os Will adjust dose of diuretics upon discharge currently on torsemide 2.5 mg daily Left lower leg cellulitis No fevers, no chills, no leukocytosis noted to have erythema warmth and tenderness to palpation Keflex 500 q.8 hours follow clinical course Persistent AFib Stable ventricular rate, Continue metoprolol, Eliquis, persistent AFib likely causing CHF therefore as per Cardiology place on amiodarone loading dose 400 mg twice daily for 2 weeks followed by 200 mg daily and possible cardioversion in 2-3 weeks HTN Continue losartan Sick sinus syndrome Pacemaker in situ PT eval at am Full Code DVT Prophylaxis: Eliquis Pt will require continued inpatient hospitalization for treatment of acute decompensated heart failure likely due to persistent atrial fibrillation currently on IV diuretics treatment can not be provided in less acute setting. Quality Stroke Does the patient have a stroke diagnosis?: No VTE Prior VTE?: No VTE Risk Level:: Medical - moderate - high VTE Device Contraindication: Treatment Not Indicated VTE Drug Contraindication: N/A - Med Ordered
[2024-04-11] MEDS: 0.9 % Sodium Chloride Flush 3 ML SYRINGE IVFLUSH ×2 (15:12→20:19)
[2024-04-11 15:49] VITALS: BP 119/75; PULSE 106; RESP 17; TEMP 36.4; O2SAT 96
[2024-04-11] MEDS: cephALEXin 500 MG CAPSULE PO ×2 (16:19→23:34)
[2024-04-11 19:35] VITALS: BP 131/81; PULSE 85; RESP 20; TEMP 36; O2SAT 92
[2024-04-11] MEDS: Metoprolol Succinate ER 50 MG TAB.ER.24H PO (20:18)
[2024-04-11] MEDS: Acetaminophen 325 MG TABLET 650 MG PO (20:19)
[2024-04-11] MEDS: Melatonin 3 MG TABLET 6 MG PO (20:19)
[2024-04-11 23:45] VITALS: BP 110/59; PULSE 85; RESP 17; TEMP 36; O2SAT 96
[2024-04-12] VITALS (8 sets, daily range): BP systolic 89–117; BP diastolic 54–69; PULSE 70–99; RESP 14–18; TEMP 35.8–36.2; O2SAT 94–97
[2024-04-12 07:25] LABS: Anion Gap 16 (12-20); Blood Urea Nitrogen 28 mg/dL (9-16); Calcium 8.8 mg/dL (8.4-10.2); Carbon Dioxide 28 mmol/L (22-29); Chloride 95 mmol/L (96-108); Creatinine Clr Calc Pharmacy 40.9; Estimated Glomerular Filt Rate 41; Glucose Random 116 mg/dL (60-115); Magnesium 2.2 mg/dL (1.6-2.6); Potassium 3.5 mmol/L (3.3-5.1); Sodium 135 mmol/L (135-145)
[2024-04-12] MEDS: cephALEXin 500 MG CAPSULE PO ×2 (08:25→16:24)
[2024-04-12] MEDS: 0.9 % Sodium Chloride Flush 3 ML SYRINGE IVFLUSH ×3 (08:26→20:32)
[2024-04-12] MEDS: Apixaban 5 MG TABLET PO ×2 (08:26→20:34)
[2024-04-12] MEDS: Cholecalciferol (Vitamin D3) 25 MCG TABLET 125 MCG PO (08:26)
--- NOTE | 2024-04-12 09:44 | PM.PNCARD ---
Subjective Subjective Date of Service: 04/12/24 Interval history: She states she feels fine. No clear-cut cardiac complaints. Somewhat improved after hospitalization. Blood pressure is lowish today. No presyncope but possibly slight dizziness but patient is not very clearly stating that. Review of Systems Review of Systems Yes all other systems are reviewed and are negative Constitutional: Reports as per HPI and Reports no additional constitutional complaints Eyes: Reports as per HPI and Denies no additional eye complaints Denies system reviewed and no additional complaints, except as documented and Reports as per HPI Cardiovascular: Reports as per HPI, Reports no additional cardiovascular complaints, Denies acrocyanosis, Denies cool extremities, Denies chest pain, Denies leg edema, Denies lightheadedness, Denies palpitations and Denies dyspnea Respiratory: Reports as per HPI, Denies no additional respiratory complaints and Denies dyspnea Gastrointestinal: Reports as per HPI and Denies no additional gastrointestinal complaints Genitourinary: Reports as per HPI Musculoskeletal: Reports no additional musculoskeletal complaints and Reports as per HPI Skin/Breast: Reports system reviewed and no additional complaints, except as docu Reports system reviewed and no additional complaints, except as documented and Reports as per HPI Psychiatric: Reports no additional psychiatric complaints and Reports as per HPI Endocrine: Reports no additional endocrine complaints, Reports as per HPI and Denies palpitations Hematologic/Lymphatic: Reports no additional hematologic/lymphatic complaints and Reports as per HPI Allergic/Immunologic: Reports no additional allergic/immunologic complaints and Reports as per HPI Physical Exam Vital Signs: Last Vital Signs Temp 96.6 F L 04/12/24 07:52 Pulse 99 04/12/24 08:30 Resp 18 04/12/24 08:30 BP 89/54 L 04/12/24 08:30 Pulse Ox 96 04/12/24 07:52 O2 Del Method Nasal Cannula 04/12/24 07:52 O2 Flow Rate 2 04/12/24 07:52 BMI result Body Mass Index 39.1 Const General: comfortable and no acute distress Orientation/consciousness: patient oriented x3 HEENT Other: Unremarkable Head: Yes normal to inspection Neck Neck: Yes normal visual inspection Chest Chest palpation & inspection: normal inspection of the chest Resp Auscultation: clear to auscultation bilaterally Cardio Palpation: normal PMI Heart sounds: S1 normal heart sound present, S2 normal heart sound present, no gallops, no murmurs and no rubs GI Palpation (GI): Soft to palpation Back/Spine/Pelvis Other: unremarkable Skin General skin exam: no rashes or lesions noted Neuro General: patient oriented x3 Extrem Other: 1+ edema General: Yes normal to inspection Psych Mental Status: mental status grossly normal Objective Labs and Meds 04/10/24 14:15 04/12/24 06:52 Lab results: Laboratory Results - last 24 hr 04/12/24 06:52 Hold Purple Top SEE NOTE Sodium 135 Potassium 3.5 Chloride 95 L Carbon Dioxide 28 Anion Gap 16 BUN 28 H Creatinine 1.24 Estim Creat Clear Calc 40.9 Estimated GFR 41 Random Glucose 116 H Calcium 8.8 Magnesium 2.2 Progress Note: A&P Assessment and plan (1) Acute on chronic diastolic (congestive) heart failure: Status: Acute (2) Persistent atrial fibrillation: Status: Acute (3) Arterial hypotension: Status: Acute (4) Cardiac pacemaker in situ: Status: Acute Plan Per pacemaker interrogation, atrial fibrillation over the last 6 months or so. That might be the etiology for congestive heart failure. She has been adequately diuresed with Lasix.-4 L. total urine output about 5.2 L as listed. As the blood pressure is also quite low, can hold her diuretics and other meds for today. Hopefully, should, by itself. With regard to the atrial fibrillation, amiodarone loading followed by outpatient cardioversion in a few weeks. Continue with anticoagulation otherwise. Discussed with Aydee Nicolas. Time Spent With Patient Time: Total time managing care of this patient today ____ minutes. Progress Note: Quality Stroke Does the patient have a stroke diagnosis?: No Procedures Date of Service Date of Service: 04/12/24
--- NOTE | 2024-04-12 10:19 | P.PNIM_ITS ---
Subjective Subjective Date of Service: 04/12/24 Interval History: Follow up CHF Feeling better, no cp, sob hold meds due to low BP Review of Systems All other system reviewed and are negative Physical Exam 2 Vital Signs: Vital Signs: Last Vital Signs Temp 96.6 F L 04/12/24 07:52 Pulse 99 04/12/24 08:30 Resp 18 04/12/24 08:30 BP 89/54 L 04/12/24 08:30 Pulse Ox 96 04/12/24 07:52 O2 Del Method Nasal Cannula 04/12/24 07:52 O2 Flow Rate 2 04/12/24 07:52 BMI result Body Mass Index 39.1 Appearing in no acute distress lung sounds are clear to auscultation heart regular rate rhythm, clear S1, S2 positive bowel sounds, abdomen is soft, nontender neuro patient is alert x3, no focal deficits Objective Data Active Medications Acetaminophen (Acetaminophen 325 Mg Tablet) 650 mg PO Q6H PRN PRN Reason: Pain, Mild 1-3,fever,headache Last Admin: 04/11/24 20:19 Dose: 650 mg Documented By: REHANA Amiodarone HCl (Amiodarone Hcl 200 Mg Tablet) 400 mg PO BID [facility] Last Admin: 04/12/24 09:12 Dose: Not Given Documented By: JERRICA Non-Admin Reason: Physician Held Med Apixaban (Apixaban 5 Mg Tablet) 5 mg PO BID [facility] Last Admin: 04/12/24 08:26 Dose: 5 mg Documented By: JERRICA Calcium Carbonate (Calcium Carbonate 750 Mg Tab.Chew) 750 mg PO Q4H PRN PRN Reason: Heartburn Cephalexin HCl (Cephalexin 500 Mg Capsule) 500 mg PO Q8H [facility] Last Admin: 04/12/24 08:25 Dose: 500 mg Documented By: JERRICA Empagliflozin (Empagliflozin 10 Mg Tablet) 10 mg PO DAILY [facility] Last Admin: 04/12/24 09:12 Dose: Not Given Documented By: JERRICA Non-Admin Reason: Physician Held Med Furosemide (Furosemide 100 Mg/10 Ml Vial) 80 mg IVPUSH BID@0900,1800 [facility]; Protocol Last Admin: 04/12/24 09:12 Dose: Not Given Documented By: JERRICA Non-Admin Reason: Physician Held Med Losartan Potassium (Losartan Potassium 50 Mg Tablet) 100 mg PO DAILY [facility]; Protocol Last Admin: 04/12/24 09:12 Dose: Not Given Documented By: JERRICA Non-Admin Reason: Physician Held Med Magnesium Hydroxide (Milk Of Magnesia 30 Ml Oral.Susp) 30 ml PO DAILY PRN PRN Reason: Constipation Melatonin (Melatonin 3 Mg Tablet) 6 mg PO BEDTIME PRN PRN Reason: Insomnia Last Admin: 04/11/24 20:19 Dose: 6 mg Documented By: REHANA Metoprolol Succinate (Metoprolol Succinate Er 50 Mg Tab.Er.24h) 50 mg PO BEDTIME [facility]; Protocol Last Admin: 04/11/24 20:18 Dose: 50 mg Documented By: REHANA Ondansetron HCl (Ondansetron Hcl 4 Mg/2 Ml Vial) 4 mg IVPUSH Q8H PRN PRN Reason: Nausea and Vomiting Sodium Chloride (0.9 % Sodium Chloride Flush 3 Ml Syringe) 3 ml IVFLUSH QSHIFT [facility] Last Admin: 04/12/24 08:26 Dose: 3 ml Documented By: JERRICA Vitamin D (Cholecalciferol (Vitamin D3) 25 Mcg Tablet) 125 mcg PO DAILY [facility] Last Admin: 04/12/24 08:26 Dose: 125 mcg Documented By: JERRICA Labs 04/10/24 14:15 04/12/24 06:52 Labs: Laboratory Results - last 24 hr 04/12/24 06:52 Hold Purple Top SEE NOTE Anion Gap 16 Estim Creat Clear Calc 40.9 Estimated GFR 41 Random Glucose 116 H Calcium 8.8 Magnesium 2.2 Assessment and Plan (1) Acute on chronic diastolic (congestive) heart failure: Status: Acute (2) Acute exacerbation of chronic heart failure: Status: Acute (3) Persistent atrial fibrillation: Status: Acute (4) Cellulitis: Status: Acute Plan 83-year-old female with a PMH significant for?persistent AFib on Eliquis, sick sinus syndrome s/p pacemaker in place, HFpEF, and HTN who presents to the ED from Cardiology office for evaluation of SOB concerning for decompensated CHF exacerbation. Pt will be admitted to the hospital for treatment and further evaluation of acute hypoxic respiratory failure in the setting of acute decompensated HFpEF exacerbation. Hypotension hold all antihypertensive meds for now cardiology following Acute hypoxic respiratory failure in setting of acute decompensated HFpEF exacerbation Feels better with less shortness of breath and decrease lower extremity edema s/p IV lasix, no on IV lasix 80mg BID (hold for now) Echo showed EF 55%, indeterminate diastolic function,no WMA Likely secondary to persistent AFib and inadequate diuresis Continue Jardiance Low-salt diet, Titrate supplemental O2 >92, wean as tolerated, follow BMP,1/os Left lower leg cellulitis No fevers, no chills, no leukocytosis noted to have erythema warmth and tenderness to palpation Keflex 500 q.8 hours follow clinical course Persistent AFib Stable ventricular rate Continue metoprolol, Eliquis persistent AFib likely causing CHF therefore as per Cardiology place on amiodarone loading dose 400 mg twice daily for 2 weeks followed by 200 mg daily and possible cardioversion in 2-3 weeks (hold meds) HTN hold all meds due to hypotension Sick sinus syndrome Pacemaker in situ Full Code DVT Prophylaxis: Tiffaniequis Pt will require continued inpatient hospitalization for treatment of acute decompensated heart failure likely due to persistent atrial fibrillation currently on IV diuretics treatment can not be provided in less acute setting. Quality Stroke Does the patient have a stroke diagnosis?: No VTE Prior VTE?: No VTE Risk Level:: Medical - moderate - high VTE Device Contraindication: Treatment Not Indicated VTE Drug Contraindication: N/A - Med Ordered
[2024-04-12] MEDS: Acetaminophen 325 MG TABLET 650 MG PO (20:29)
[2024-04-12] MEDS: Melatonin 3 MG TABLET 6 MG PO (20:33)
[2024-04-13] VITALS (7 sets, daily range): BP systolic 96–132; BP diastolic 50–86; PULSE 67–97; RESP 12–20; TEMP 35.7–36; O2SAT 96–97; BMI 38.6
[2024-04-13] MEDS: cephALEXin 500 MG CAPSULE PO ×3 (01:09→16:07)
[2024-04-13 06:57] LABS: Anion Gap 14 (12-20); Blood Urea Nitrogen 25 mg/dL (9-16); Calcium 9.4 mg/dL (8.4-10.2); Carbon Dioxide 28 mmol/L (22-29); Chloride 93 mmol/L (96-108); Creatinine Clr Calc Pharmacy 61.2; Estimated Glomerular Filt Rate > 60; Glucose Random 116 mg/dL (60-115); Magnesium 2.2 mg/dL (1.6-2.6); Potassium 3.5 mmol/L (3.3-5.1); Sodium 131 mmol/L (135-145)
[2024-04-13] MEDS: Apixaban 5 MG TABLET PO ×2 (07:56→21:49)
[2024-04-13] MEDS: 0.9 % Sodium Chloride Flush 3 ML SYRINGE IVFLUSH ×3 (07:56→21:49)
[2024-04-13] MEDS: Empagliflozin 10 MG TABLET PO (07:56)
[2024-04-13] MEDS: Amiodarone HCL 200 MG TABLET 400 MG PO ×2 (07:56→21:49)
[2024-04-13] MEDS: Losartan Potassium 50 MG TABLET 100 MG PO (07:56)
[2024-04-13] MEDS: Cholecalciferol (Vitamin D3) 25 MCG TABLET 125 MCG PO (07:57)
--- NOTE | 2024-04-13 09:05 | P.PNIM_ITS ---
Subjective Subjective Date of Service: 04/13/24 Interval History: Follow up CHF Feeling better, no cp, sob blood pressure stabilized Review of Systems All other system reviewed and are negative Physical Exam 2 Vital Signs: Vital Signs: Last Vital Signs Temp 96.2 F L 04/13/24 07:36 Pulse 68 04/13/24 07:36 Resp 12 04/13/24 07:36 BP 132/73 04/13/24 07:36 Pulse Ox 96 04/13/24 07:36 O2 Del Method Nasal Cannula 04/13/24 07:36 O2 Flow Rate 2 04/13/24 07:36 BMI result Body Mass Index 39.1 Appearing in no acute distress lung sounds are clear to auscultation heart regular rate rhythm, clear S1, S2 positive bowel sounds, abdomen is soft, nontender neuro patient is alert x3, no focal deficits Objective Data Active Medications Acetaminophen (Acetaminophen 325 Mg Tablet) 650 mg PO Q6H PRN PRN Reason: Pain, Mild 1-3,fever,headache Last Admin: 04/12/24 20:29 Dose: 650 mg Documented By: REHANA Amiodarone HCl (Amiodarone Hcl 200 Mg Tablet) 400 mg PO BID [facility] Last Admin: 04/13/24 07:56 Dose: 400 mg Documented By: JERRICA Apixaban (Apixaban 5 Mg Tablet) 5 mg PO BID [facility] Last Admin: 04/13/24 07:56 Dose: 5 mg Documented By: JERRICA Calcium Carbonate (Calcium Carbonate 750 Mg Tab.Chew) 750 mg PO Q4H PRN PRN Reason: Heartburn Cephalexin HCl (Cephalexin 500 Mg Capsule) 500 mg PO Q8H [facility] Last Admin: 04/13/24 07:56 Dose: 500 mg Documented By: JERRICA Empagliflozin (Empagliflozin 10 Mg Tablet) 10 mg PO DAILY [facility] Last Admin: 04/13/24 07:56 Dose: 10 mg Documented By: JERRICA Furosemide (Furosemide 100 Mg/10 Ml Vial) 80 mg IVPUSH BID@0900,1800 [facility]; Protocol Last Admin: 04/12/24 09:12 Dose: Not Given Documented By: JERRICA Non-Admin Reason: Physician Held Med Losartan Potassium (Losartan Potassium 50 Mg Tablet) 100 mg PO DAILY [facility]; Protocol Last Admin: 04/13/24 07:56 Dose: 100 mg Documented By: JERRICA Magnesium Hydroxide (Milk Of Magnesia 30 Ml Oral.Susp) 30 ml PO DAILY PRN PRN Reason: Constipation Melatonin (Melatonin 3 Mg Tablet) 6 mg PO BEDTIME PRN PRN Reason: Insomnia Last Admin: 04/12/24 20:33 Dose: 6 mg Documented By: REHANA Metoprolol Succinate (Metoprolol Succinate Er 50 Mg Tab.Er.24h) 50 mg PO BEDTIME [facility]; Protocol Last Admin: 04/11/24 20:18 Dose: 50 mg Documented By: REHANA Ondansetron HCl (Ondansetron Hcl 4 Mg/2 Ml Vial) 4 mg IVPUSH Q8H PRN PRN Reason: Nausea and Vomiting Sodium Chloride (0.9 % Sodium Chloride Flush 3 Ml Syringe) 3 ml IVFLUSH QSHIFT [facility] Last Admin: 04/13/24 07:56 Dose: 3 ml Documented By: JERRICA Vitamin D (Cholecalciferol (Vitamin D3) 25 Mcg Tablet) 125 mcg PO DAILY [facility] Last Admin: 04/13/24 07:57 Dose: 125 mcg Documented By: JERRICA Labs 04/10/24 14:15 04/13/24 06:03 Labs: Laboratory Results - last 24 hr 04/13/24 06:03 Anion Gap 14 Estim Creat Clear Calc 61.2 Estimated GFR > 60 Random Glucose 116 H Calcium 9.4 D Magnesium 2.2 Assessment and Plan (1) Acute on chronic diastolic (congestive) heart failure: Status: Acute (2) Acute exacerbation of chronic heart failure: Status: Acute (3) Persistent atrial fibrillation: Status: Acute (4) Cellulitis: Status: Acute Plan 83-year-old female with a PMH significant for?persistent AFib on Eliquis, sick sinus syndrome s/p pacemaker in place, HFpEF, and HTN who presents to the ED from Cardiology office for evaluation of SOB concerning for decompensated CHF exacerbation. Pt will be admitted to the hospital for treatment and further evaluation of acute hypoxic respiratory failure in the setting of acute decompensated HFpEF exacerbation. Hypotension. Resolved antihypertensive med[facility]ld cardiology following losartan stopped, all other home medications continued Acute hypoxic respiratory failure in setting of acute decompensated HFpEF exacerbation Feels better with less shortness of breath and decrease lower extremity edema s/p IV lasix, no on IV lasix 80mg BID (hold for now) Echo showed EF 55%, indeterminate diastolic function,no WMA Likely secondary to persistent AFib and inadequate diuresis Continue Jardiance Low-salt diet, Titrate supplemental O2 >92, wean as tolerated, follow BMP,1/os Left lower leg cellulitis No fevers, no chills, no leukocytosis noted to have erythema warmth and tenderness to palpation Keflex 500 q.8 hours follow clinical course Persistent AFib Stable ventricular rate Continue metoprolol, Tiffaniequis persistent AFib likely causing CHF Cardiology rec amiodarone loading dose 400 mg twice daily for 2 weeks followed by 200 mg daily and possible cardioversion in 2-3 weeks HTN hold all meds due to hypotension Sick sinus syndrome Pacemaker in situ Full Code DVT Prophylaxis: Dirk attending Dr. Hernández DISPO PT consult, oob to chair Pt will require continued inpatient hospitalization for treatment of acute decompensated heart failure likely due to persistent atrial fibrillation currently on IV diuretics treatment can not be provided in less acute setting. Quality Stroke Does the patient have a stroke diagnosis?: No VTE Prior VTE?: No VTE Risk Level:: Medical - moderate - high VTE Device Contraindication: Treatment Not Indicated VTE Drug Contraindication: N/A - Med Ordered
--- NOTE | 2024-04-13 10:09 | PM.PNCARD ---
Subjective Subjective Date of Service: 04/13/24 Interval history: Patient states she feels fine. Yesterday, blood pressure was low but today it seems much better. Review of Systems Review of Systems Yes all other systems are reviewed and are negative Constitutional: Reports as per HPI and Reports no additional constitutional complaints Eyes: Reports as per HPI and Denies no additional eye complaints Denies system reviewed and no additional complaints, except as documented and Reports as per HPI Cardiovascular: Reports as per HPI, Reports no additional cardiovascular complaints, Denies acrocyanosis, Denies cool extremities, Denies chest pain, Denies leg edema, Denies lightheadedness, Denies palpitations and Denies dyspnea Respiratory: Reports as per HPI, Denies no additional respiratory complaints and Denies dyspnea Gastrointestinal: Reports as per HPI and Denies no additional gastrointestinal complaints Genitourinary: Reports as per HPI Musculoskeletal: Reports no additional musculoskeletal complaints and Reports as per HPI Skin/Breast: Reports system reviewed and no additional complaints, except as docu Reports system reviewed and no additional complaints, except as documented and Reports as per HPI Psychiatric: Reports no additional psychiatric complaints and Reports as per HPI Endocrine: Reports no additional endocrine complaints, Reports as per HPI and Denies palpitations Hematologic/Lymphatic: Reports no additional hematologic/lymphatic complaints and Reports as per HPI Allergic/Immunologic: Reports no additional allergic/immunologic complaints and Reports as per HPI Physical Exam Vital Signs: Last Vital Signs Temp 96.2 F L 04/13/24 07:36 Pulse 68 04/13/24 07:36 Resp 12 04/13/24 07:36 BP 132/73 04/13/24 07:36 Pulse Ox 96 04/13/24 07:36 O2 Del Method Nasal Cannula 04/13/24 07:36 O2 Flow Rate 2 04/13/24 07:36 BMI result Body Mass Index 39.1 Const General: comfortable and no acute distress Orientation/consciousness: patient oriented x3 HEENT Other: Unremarkable Head: Yes normal to inspection Neck Neck: Yes normal visual inspection Chest Chest palpation & inspection: normal inspection of the chest Resp Auscultation: clear to auscultation bilaterally Cardio Palpation: normal PMI Heart sounds: S1 normal heart sound present, S2 normal heart sound present, no gallops, no murmurs and no rubs GI Palpation (GI): Soft to palpation Back/Spine/Pelvis Other: unremarkable Skin General skin exam: no rashes or lesions noted Neuro General: patient oriented x3 Extrem Other: 1+ edema General: Yes normal to inspection Psych Mental Status: mental status grossly normal Objective Labs and Meds 04/10/24 14:15 04/13/24 06:03 Lab results: Laboratory Results - last 24 hr 04/13/24 06:03 Sodium 131 L Potassium 3.5 Chloride 93 L Carbon Dioxide 28 Anion Gap 14 BUN 25 H Creatinine 0.83 Estim Creat Clear Calc 61.2 Estimated GFR > 60 Random Glucose 116 H Calcium 9.4 D Magnesium 2.2 Progress Note: A&P Assessment and plan (1) Acute on chronic diastolic (congestive) heart failure: Status: Acute (2) Persistent atrial fibrillation: Status: Acute (3) Arterial hypotension: Status: Acute (4) Cardiac pacemaker in situ: Status: Acute Plan Per pacemaker interrogation, atrial fibrillation over the last 6 months or so. That might be the etiology for congestive heart failure. She has been adequately diuresed with Lasix -3.7 L. total urine output about 6.2 L as listed. Blood pressure was lowish yesterday but normalized today. We can switch her to oral diuretics with a slightly higher than usual dose. Slowly reintroduced other medications as well. Continue amiodarone. Likely outpatient cardioversion after few weeks. Continue anticoagulation. Discussed with Aydee Nicolas. Time Spent With Patient Time: Total time managing care of this patient today ____ minutes. Progress Note: Quality Stroke Does the patient have a stroke diagnosis?: No Procedures Date of Service Date of Service: 04/13/24
[2024-04-13] MEDS: Furosemide 20 MG TABLET 5 MG PO (12:23)
[2024-04-13] MEDS: Metoprolol Succinate ER 50 MG TAB.ER.24H PO (21:48)
[2024-04-13] MEDS: Melatonin 3 MG TABLET 6 MG PO (21:51)
[2024-04-14] VITALS: BP 100/54; PULSE 66; RESP 18; TEMP 36; O2SAT 97
[2024-04-14] MEDS: cephALEXin 500 MG CAPSULE PO ×2 (00:12→08:49)
[2024-04-14 03:29] VITALS: BP 110/71; PULSE 86; RESP 18; TEMP 36.5; O2SAT 96
[2024-04-14] MEDS: Acetaminophen 325 MG TABLET 650 MG PO (04:49)
[2024-04-14 07:40] VITALS: BP 106/55; PULSE 72; RESP 20; TEMP 36.3; O2SAT 97
[2024-04-14] MEDS: 0.9 % Sodium Chloride Flush 3 ML SYRINGE IVFLUSH (08:48)
[2024-04-14] MEDS: Torsemide 20 MG TABLET 10 MG PO (08:49)
[2024-04-14] MEDS: Amiodarone HCL 200 MG TABLET 400 MG PO (08:49)
[2024-04-14] MEDS: Cholecalciferol (Vitamin D3) 25 MCG TABLET 125 MCG PO (08:49)
[2024-04-14] MEDS: Empagliflozin 10 MG TABLET PO (08:49)
[2024-04-14] MEDS: Apixaban 5 MG TABLET PO (08:49)
[2024-04-14 10:01] LABS: Anion Gap 15 (12-20); Blood Urea Nitrogen 27 mg/dL (9-16); Calcium 9.3 mg/dL (8.4-10.2); Carbon Dioxide 28 mmol/L (22-29); Chloride 92 mmol/L (96-108); Creatinine Clr Calc Pharmacy 55.9; Estimated Glomerular Filt Rate 60; Glucose Random 180 mg/dL (60-115); Potassium 4.2 mmol/L (3.3-5.1); Sodium 131 mmol/L (135-145)
[2024-04-14 11:10] VITALS: BP 101/55; PULSE 70; RESP 20; TEMP 36.2; O2SAT 96
--- NOTE | 2024-04-14 11:45 | MHC.CM.PN ---
Second IMM given 2/3. Pt is medically cleared for discharge home with new [facility] services, pts will transport her home today.
--- NOTE | 2024-04-14 11:48 | P.F2F_ITS ---
Service Date Service Date: 04/14/24 Encounter Date of encounter: 04/14/24 Reasons for Services Signs and symptoms assessed: Acute hypoxic respiratory failure Acute decompensated heart failure with preserved ejection fraction Hypotension Left lower leg cellulitis Reason for penitentiary: CV/CP assess and/or care and other (Blood pressure and heart rate monitoring) Reason for physical therapy: home safety and mobility Homebound: Leaving the home is medically contraindicated at this time without the asist of a device and/or another person due th the listed conditions above and below. Reason homebound: weakness related to hospital stay Certification: Based on the above findings, I certify that this patient is confined to the home and needs intermittent penitentiary care, physical therapy and/or speech therapy, or continues to need occupational therapy. The patient is under my care, and I have initiated the establishment of the plan of care. The patient will be followed by a physician who will periodically review the plan of care. Time Spent With Patient Time: Total time managing care of this patient today ____ minutes.
--- NOTE | 2024-04-14 11:49 | P.DS_ITS ---
DS: Providers Provider Date of Service: 04/14/24 Date of admission: 04/10/24 19:14 Date of discharge: 04/14/24 Primary care physician: Mert Yin MD Consults: 04/10/24 19:14 Consult to Cardiology Routine Consulting Provider: [facility] Reason for consultation: CHF exacerbation, sent in from Dr. Chopra's office 04/12/24 12:14 Consult to Wound Care Routine Reason for consultation: LLE [place] area cellulitis Has provider been notified: Yes DS: Diagnosis Discharge Diagnosis (1) Acute on chronic diastolic (congestive) heart failure: Status: Acute (2) Persistent atrial fibrillation: Status: Acute (3) Arterial hypotension: Status: Acute (4) Cardiac pacemaker in situ: Status: Acute DS: Summary Hospital Course Hospital Course: History and physical as per admitting provider. Pt is an 83-year-old female with a PMH significant for?persistent AFib on Eliquis, sick sinus syndrome s/p pacemaker in place, HFpEF, and HTN who presents to the ED from Cardiology office for evaluation of SOB concerning for decompensated CHF exacerbation. Pt reports she has been getting progressively short of breath for the past 2 months and now has WEAVER with minimal activity. ?Also endorses weight gain, increased lower leg edema, occasional palpitations, and orthopnea where she now sleeps in a recliner. Per cardiology pt did not increase her home torsemide when noticed symptoms starting. Denies chest pain/pressure is. No cough. Denies fever, chills, nausea, vomiting, abdominal pain. In the ED pt with elevated BP of 96 and hypertensive to 185/103. Pt was ambulated to the bathroom and noted to be desatting into the 80s. Labs were significant for BNP 337, otherwise grossly unremarkable and around baseline for pt. No leukocytosis. Stable H&H. No significant electrolyte abnormalities. Renal and hepatic function WNL. Troponin negative. TSH and free T4 WNL. Tested negative for flu, COVID, RSV. CXR showed mild prominence of interstitial markings and subtle Richard B lines suggestion of mild CHF. EKG demonstrated AFib without evidence of significant ST elevations or depressions. Pt was treated in the ED with Lasix 60 mg IV and placed on a Lasix drip at 5 mg/hr. Pt will be admitted to the hospital for breana tment and further evaluation of acute hypoxic respiratory failure in the setting of acute decompensated HFpEF exacerbation Hypotension. all antihypertensive meds held for 1 day and BP rebounded. losartan stopped and BP still stable. Acute hypoxic respiratory failure in setting of acute decompensated HFpEF exacerbation, s/p IV lasix, then lasix 80mg BID but stopped due to hypotension Echo showed EF 55%, indeterminate diastolic function,no WMA, Likely secondary to persistent AFib and inadequate diuresis, Continue Jardiance Low-salt diet, titrated of oxygen. home with torsemide 10 mg daily Left lower leg cellulitis. No fevers, no chills, no leukocytosis noted to have erythema warmth and tenderness to palpation. Keflex 500 q.8 hours completed 5 days of abx. bilateral LE pain to touch and feet. ? peripheral neuropathy, unspecified. Gabapentin 100 daily for now, Follow up with PCP to titrate medications Persistent AFib. Stable ventricular rate Continue metoprolol, Eliquis. persistent AFib likely causing CHF, Cardiology rec amiodarone loading dose 400 mg twice daily for 2 weeks followed by 200 mg daily and possible cardioversion in 2-3 weeks Sick sinus syndrome. Pacemaker in situ Time Attestation Discharge Coordination Time (in mins): 40 Quality: Safe Use of Opioids Does Pt have an Active Cancer Diagnosis on the Problem List?: No Quality: Stroke Does the patient have a stroke diagnosis?: No Physical Exam Vital Signs: Vital Signs: Last Vital Signs Temp 97.2 F 04/14/24 11:10 Pulse 70 04/14/24 11:10 Resp 20 04/14/24 11:10 BP 101/55 L 04/14/24 11:10 Pulse Ox 96 04/14/24 11:10 O2 Del Method Nasal Cannula 04/14/24 11:10 O2 Flow Rate 2 04/14/24 11:10 BMI result Body Mass Index 38.6 Appearing in no acute distress head is normocephalic atraumatic eyes pupils are PERRLA sclera is anicteric mouth throat mucous membranes are intact and moist neck is supple no lymphadenopathy, no JVD noted lung sounds are clear to auscultation heart regular rate rhythm, clear S1, S2 positive bowel sounds, abdomen is soft, nontender neuro patient is alert x3, no focal deficits DS: Data Data Completed and Pending Completed studies during hospitalization [Text1]: Procedures Replacement of Right Hip Joint with Synthetic Substitute, Uncemented, Open Approach (01/11/21) Labs on day of discharge: Laboratory Results - last 24 hr 04/14/24 09:23 Sodium 131 L Potassium 4.2 Chloride 92 L Carbon Dioxide 28 Anion Gap 15 BUN 27 H Creatinine 0.90 Estim Creat Clear Calc 55.9 Estimated GFR 60 Random Glucose 180 H Calcium 9.3 Discharge Plan Discharge Anticipated Discharge Date/Time: 04/14/24 11:35 Patient Disposition: Home Health Service Discharge Diagnosis: Acute hypoxic respiratory failure Acute decompensated heart failure with preserved ejection fraction Left lower leg cellulitis Hypotension Referrals: Raisa YIN [Outside] - 1 Week Mert Fernández MD [Primary Care Provider] - 1 Week Per Rob MD [Physician] - 2 Weeks (Follow up for outpatient cardioversion) Discharge Medications: New torsemide 20 mg Tablet 10 mg PO DAILY Qty: 30 0RF Protocol: Hold for SBP< HOLD for SBP < : 90 amiodarone 200 mg Tablet 400 mg PO BID Qty: 64 0RF gabapentin 100 mg Capsule 100 mg PO DAILY Qty: 30 0RF Continued Jardiance 10 mg tablet 10 mg PO DAILY 90 Days Qty: 90 3RF metoprolol succinate 50 mg tablet extended release 24 hr 50 mg PO BEDTIME 90 Days Qty: 90 3RF acetaminophen [Tylenol] 325 mg Tablet 650 mg PO Q6H PRN (Reason: Pain) cholecalciferol (vitamin D3) [Vitamin D3] 125 mcg (5,000 unit) Tablet 125 mcg PO DAILY PreserVision AREDS-2 250-90-40-1 mg Capsule 1 tab PO BID Eliquis 5 mg tablet 5 mg PO BID Discontinued torsemide 5 mg Tablet 2.5 mg PO DAILY losartan 100 mg tablet 100 mg PO DAILY Discharge Orders: Discharge Order (Routine); Ordered 04/14/24 Ordered By: Aydee Nicolas Diet: Advance to usual diet Activity on Discharge: As tolerated Stand Alone Forms: Patient Portal Discharge page Print Language: Samoan Care Plan Goals: Your torsemide was changed to 10 mg daily Your losartan was stopped Continue amiodarone 400 mg twice daily for total of 14 days then 200 mg daily Gabapentin was started for peripheral neuropathy Health Concerns: Acute hypoxic respiratory failure Acute decompensated heart failure with preserved ejection fraction Left lower leg cellulitis Hypotension Plan of Treatment: Follow-up with primary care provider as needed Take all medications as prescribed Assessment: See discharge summary Discharge Date/Time: 04/14/24 14:27
--- NOTE | 2024-04-14 12:05 | HO.WOUND ---
Wound Consult: Initial 83yr old? female admitted to [facility] on 04/10/24 - See progress notes and H&P for detailed history.? Wound consult placed for LLE cellulitis.? Patient agreeable to assessment and photo documentation.? Patient reports she has had open wounds to the left leg previously and at the time followed with the outpt wound clinic. She reports she does not wear compression at this time but periodically will elevate her lower legs. She reports she applies lotion daily to her lower legs such as Aquaphor. There are no open wounds noted to her lower legs. No topical interventions needed at this time. The patient was encouraged to continue home regimen for her lower legs. Right Lower Leg Left Lower Leg Left Lower Leg - old injury resurfaced site.
[2024-04-14] MEDS: Gabapentin 100 MG CAPSULE PO (12:17)
--- NOTE | 2024-04-14 16:44 | P.CDIM_ITS ---
PROVIDER RESPONSE TEXT: To clarify, the appropriate diagnosis supported by the clinical indicators: Hyponatremia QUERY TEXT: PHYSICIAN'S DOCUMENTATION REQUEST Date of Query: 04/14/2024 10:21 AM EST Patient Name: Yina Rutledge Admit Date: 04/11/2024 Dear Aydee Nicolas [employer]LE[employer]ER, A review of the medical record indicates additional documentation may be needed. Please review below and update the documentation accordingly. Clinical Indicators: LABS: sodium 131 L Fluids Based on the above, is there a diagnosis that correlates with these lab findings: Hyponatremia Labs indicate a diagnosis of (please specify) Other (explain) Clinically unable to determine (explain) Thank you, Charlotte Costa, CCS, CDIS Use of terms such as suspected, likely, concern for, or probable (associated with a specific diagnosi s that is being evaluated, monitored, or treated as if it exists) are acceptable and can be coded in the inpatient se tting, when documented at the time of discharge. Please use your independent medical judgment in providing your response. THIS QUERY IS PART OF THE PERMANENT MEDICAL RECORD
== END 2024-04-14 14:27 | disposition home health service (06) | DRG 291 ==
LOC: HO.ED 18:15 → HO.EDOVER 19:31 → HO.IMC 20:28
PROVIDERS: Physician Assistant; Admitting Provider Student in an Organized Health Care Education/Training Program; Emergency Provider Emergency Medicine; PCP Family Medicine; Visit Provider Nurse Practitioner Acute Care
DX: I11.0 Hypertensive heart disease with heart failure (principal); I50.33 Acute on chronic diastolic (congestive) heart failure; J96.01 Acute respiratory failure with hypoxia; E87.1 Hypo-osmolality and hyponatremia; I48.19 Other persistent atrial fibrillation; L03.116 Cellulitis of left lower limb; I49.5 Sick sinus syndrome; Z20.822 Contact with and (suspected) exposure to COVID-19; Z45.018 Encounter for adjustment and management of other part of cardiac pacemaker; Z79.01 Long term (current) use of anticoagulants; Z79.899 Other long term (current) drug therapy
CPT/HCPCS: 0241U; 36415; 71046; 80048; 80053; 83690; 83735; 83880; 84439; 84443; 84484; 85025; 85610; 93005; 93280; 93306; 97161; 99212; 99285; J1940; Q9957

== ENCOUNTER → 2024-04-10 13:24 | Outpatient (BNV) | payer MEDICARE, SELFPAY | PROVIDERS: PCP Family Medicine; Visit Provider Radiology Diagnostic Radiology | DX: I51.7 Cardiomegaly (principal); Z95.0 Presence of cardiac pacemaker; J44.9 Chronic obstructive pulmonary disease, unspecified | CPT/HCPCS: 71046 ==

== ENCOUNTER 2024-04-10 19:14 | Outpatient (BNV) | payer MEDICARE, SELFPAY | END 2024-04-11 07:00 | PROVIDERS: Admitting Provider Student in an Organized Health Care Education/Training Program; Emergency Provider Emergency Medicine; PCP Family Medicine; Visit Provider Internal Medicine | DX: I48.91 Unspecified atrial fibrillation (principal) | CPT/HCPCS: 93306 ==

== ENCOUNTER → 2024-04-10 19:14 | Outpatient (BNV) | payer MEDICARE, SELFPAY | PROVIDERS: Admitting Provider Student in an Organized Health Care Education/Training Program; Emergency Provider Emergency Medicine; PCP Family Medicine; Visit Provider Student in an Organized Health Care Education/Training Program | DX: I50.33 Acute on chronic diastolic (congestive) heart failure (principal); I48.19 Other persistent atrial fibrillation; I95.9 Hypotension, unspecified; Z95.0 Presence of cardiac pacemaker | CPT/HCPCS: G0180 ==

== ENCOUNTER → 2024-04-10 19:14 | Outpatient (BNV) | payer MEDICARE, SELFPAY | PROVIDERS: Admitting Provider Student in an Organized Health Care Education/Training Program; Emergency Provider Emergency Medicine; PCP Family Medicine; Visit Provider Internal Medicine | DX: I50.33 Acute on chronic diastolic (congestive) heart failure (principal); Z95.0 Presence of cardiac pacemaker; I48.19 Other persistent atrial fibrillation | CPT/HCPCS: 99223 ==

== ENCOUNTER 2024-05-08 13:30 | Outpatient (AMB) | payer MEDICARE, SELFPAY ==
--- NOTE | 2024-05-08 13:41 | A.OFFVIS_ITS ---
Vital Signs 05/08/24 13:42 Height 5 ft 4 in Weight 224 lb BMI 38.4 BP 120/60 Blood Pressure Location Lt radial Position Sitting Pulse 88 Pulse Source Monitor Intake Visit Reasons[place] [facility] [place] Allergies Seasonal Allergies Allergy (Mild, Verified 04/10/24 13:25) itching and sneezing Medication List - Last Reconciled 05/08/24 by Murali Alonzo NP amiodarone 200 mg PO DAILY apixaban (Eliquis) 5 mg PO BID cholecalciferol (vitamin D3) (Vitamin D3) 125 mcg PO DAILY empagliflozin (Jardiance) 10 mg PO DAILY 90 days gabapentin 200 mg PO DAILY metoprolol succinate ER 50 mg PO BEDTIME 90 days torsemide 10 mg See Protocol PO DAILY vit C,D-Qp-whdpp-lutein-zeaxan 250-90-40-1 mg (PreserVision AREDS-2) 1 tab PO BID HPI Comments Details: This is an 83-year-old female presenting for a hospital discharge follow-up. Patient has a medical history of persistent AFib on Eliquis, sick sinus syndrome status post pacemaker placement, heart failure with preserved ejection fraction, and hypertension. The patient was recently seen in the office and subsequently was sent to the emergency room for evaluation of worsening shortness of breath, increased lower leg edema, and weight gain raising concerns for possible decompensated CHF exacerbation. Upon admission, the patient was found to be hypertensive and was treated with Lasix drip which was transitioned to IV Lasix. During that hospitalization she was also diagnosed with left lower leg cellulitis for which she was treated with antibiotics. She was discharged on amiodarone loading dose with plans for possible cardioversion in 2-3 weeks. Today, the patient reports feeling generally well. She denies any exertional chest pain, shortness of breath, palpitations, dizziness, fatigue, orthopnea, PND, lower leg edema, presyncope, or syncope. The patient states that she has been compliant with her medications as prescribed. Patient's primary complaint today is urinary frequency and urgency, for which she has been attempting to reach her primary care provider to discuss antibiotics but has been unsuccessful in doing so. And she is expressing frustration due to this. [facility] Medical History (Updated 05/12/24 @ 14:33 by Murali Alonzo NP) Cardiac pacemaker in situ Acute on chronic diastolic (congestive) heart failure Persistent atrial fibrillation History of cardioversion Arthritis Sick sinus syndrome (HFpEF) heart failure with preserved ejection fraction Hypertension TIA (transient ischemic attack) Wears dentures Wears hearing aid in both ears Hx of cardiac pacemaker Degenerative joint disease Peripheral venous insufficiency Transient cerebral ischemia Hearing loss Retinal artery occlusion Obstructive sleep apnea Obesity (BMI 30-39.9) Surgical History History of right hip replacement Hx of tubal ligation Hx laparoscopic cholecystectomy History of esophagogastroduodenoscopy (EGD) Hx of colonoscopy Status post ORIF of fracture of ankle (~1984) History of cataract surgery (~2017) Social History Household Members: Spouse Housing: House Are you a primary team primary care physician to a significant other at home: No Do you presently have visiting nurse or other home services: No Alcohol intake: never Patient Tobacco Use Status: Former Tobacco user Tobacco use type: Cigarette Advance Directives Date on File: 01/14/21 service: No Current occupational status: retired Current occupation: right handed Review of Systems Const Denies weakness ENT Denies dizziness Card Denies chest pain, Denies chest pain with activity, Denies syncope, Denies rapid heart rate, Denies pedal edema, Denies edema, Denies leg edema, Denies li ghtheadedness, Denies palpitations, Denies dyspnea, Denies dyspnea on exertion and Denies orthopnea Resp Denies cough, Denies dyspnea and Denies dyspnea on exertion GI Denies hematochezia and Denies change in stool character Musc Denies abnormal gait, Denies muscle cramps, Denies muscle weakness, Denies numbness, Denies radiating pain into limb and Denies tingling Neuro Denies abnormal gait, Denies dizziness, Denies syncope, Denies numbness, Denies tingling and Denies weakness Endo Denies palpitations Physical Exam Vital Signs: Last Vital Signs Pulse 88 05/08/24 13:42 BP 120/60 05/08/24 13:42 BMI result Body Mass Index 38.4 Const General: cooperative, healthy appearing, comfortable and no acute distress Orientation/consciousness: patient oriented x3 HEENT Head: Yes normal to inspection Neck Neck: Yes normal visual inspection, Yes trachea midline and Yes supple Chest Chest palpation & inspection: normal inspection of the chest Resp Effort & Inspection: normal respiratory effort Auscultation: clear to auscultation bilaterally, no crackles, no rales, no rhonchi and no wheezes Cardio Jugular venous distension: no JVD Palpation: normal PMI Rate: regular rate Rhythm: regular rhythm Heart sounds: S1 normal heart sound present, S2 normal heart sound present, no click, no gallops, no murmurs and no rubs Peripheral pulses: Peripheral pulses 2+ throughout GI Inspection: Yes normal to inspection Palpation (GI): Soft to palpation Auscultation: normal bowel sounds Skin General skin exam: no rashes or lesions noted Neuro General: patient oriented x3 Extrem General: Yes normal to inspection, No no pedal edema and No calf tenderness Psych Appearance: grossly normal Mental Status: mental status grossly normal Speech and movement: Normal speech and movement present Office Procedures EKG Details: EKG today showed ventricular paced rhythm, rate 88 beats per minute, nonspecific ST T [place], [place]. [id number], Complete Assessment & Plan Assessment & Plan (1) Paroxysmal atrial fibrillation: Code(s): I48.0 - Paroxysmal atrial fibrillation Category: Medical Plan: Continue with Eliquis twice daily for full anticoagulation therapy. Patient is on amiodarone and metoprolol therapy for rhythm and rate control approach. Patient's EKG today showed V paced rhythm. Patient denies any signs of bleeding. Tolerating the amiodarone well. We will check labs periodically. (2) (HFpEF) heart failure with preserved ejection fraction: Code(s): I50.30 - Unspecified diastolic (congestive) heart failure Category: Medical Plan: 04/11/2024-echo study showed LVEF at 55% with no wall motion or valvular abnormalities. Continue Jardiance, metoprolol, and torsemide. Clinically euvolemic today. Advised the patient to take an extra torsemide tablet in case of increasing lower leg edema. Management of heart failure discussed thoroughly. Advised daily weight monitoring, low-salt diet, heart healthy diet, regular exercise, and weight loss. (3) Hypertension: Code(s): I10 - Essential (primary) hypertension Category: Medical Plan: Blood pressure today is well-controlled. Continue current regimen. Ideally blood pressure less than 130/84. (4) Cardiac pacemaker in situ: Comment: [employer] Operation and Maintenance dual-chamber pacemaker Code(s): Z95.0 - Presence of cardiac pacemaker Category: Medical Plan: We will continue to monitor this remotely. (5) Hospital discharge follow-up: Code(s): Z09 - Encounter for follow-up examination after completed treatment for conditions other than malignant neoplasm Plan: As above. Patient will follow-up in 3 months in office with device check to see Dr. Chopra. In the interim, patient will call us with any concerns or change in symptoms. This note was generated using voice recognition software. While every effort has been made to ensure accuracy and proper admissions assistant, there may be occasional errors that could affect the content or meaning of the described symptoms. Orders: Orders AMB EKG-In Office 05/08/24 Murali Alonzo NP I48.0 - Paroxysmal atrial fibrillation Medications: New nitrofurantoin macrocrystal must administer with a meal/food 100 mg PO BID 10 caps 0RF Murali Alonzo NP Changed From gabapentin 100 mg PO DAILY 30 caps 0RF To gabapentin 200 mg PO DAILY Aydee Nicolas NP From torsemide 10 mg See Protocol PO DAILY 30 tabs 0RF To torsemide 10 mg See Protocol PO DAILY Aydee Nicolas NP Coding Level of Care Code Est Pt Level 4 (55841) Diagnoses Paroxysmal atrial fibrillation I48.0 (HFpEF) heart failure with preserved ejection fraction I50.30 Hypertension I10 Cardiac pacemaker in situ Z95.0 Hospital discharge follow-up Z09 CPT Codes EKG - CPT: 30050-[id number], Complete ([id number]) Time Spent (min) 35 Comment Time spent in reviewing the chart, test results, assessment, counseling and documentation.
[2024-05-08 13:42] VITALS: BP 120/60; PULSE 88; BMI 38.4
--- OUTSIDE RECORDS SUMMARY | 2024-05-08 16:10 | XMS_ITS | Data Portability ---
Author Organization [facility], [facility] Address [address] [place] [address] Care Team Providers Care Alterations Sewer Name Role Phone MERT MARTINEZ Primary Care Provide r [facility] Drafter Geological LUMA ROBLEDO Wind Tunnel Technician [phone] [facility] Process Engineering Technician EVELYNE MIRELES Dry Plasterer [facility]EP [facility]IC[facility] Sleep Medicine JOSE ARCEO Neurologist PRICILLA DURANT Raisin Separator Operator ELIZA CARLISLE Wind Tunnel Technician JOSE GUZMAN General Surgeon [facility] OTHER [facility] Wind Tunnel Technician Assessment Encounter Date Assessment Date Assessment LastModified [...] Organization Details Last Modified Time Details Appointments Follow Up, 15 2024 09:00A M Mert Yin MD Not available Not available Not available NOAC Phone Call 2024 10:00A M Ehcnoac Not available Not available Not available LAB Follow -Up 2024 10:00A M [facility] Lab Not available Not available Not available Medica l Manage ment 2024 09:15A M Mert Yin MD Not available Not available Not available Lab BMP, serum or plasma 2024 025 [facility], [address] [place] [address], [place], [id number], 04/25/2024 12:53:40 HbA1c (hemog lobin A1c), blood 2023 024 [facility], [address] [place] [address], [id number], 02/15/2024 14:07:16 urinal ysis, dipsti ck [email or web address] [facility], [address] [place] [address], [id number], 01/16/2024 16:44:36 TSH, serum or plasma 2023 024 [facility], [address] [place] [address], [id number], 02/12/2024 11:54:47 T4, free, serum 2023 024 [facility], [address] [place] [address], [id number], 02/11/2024 16:17:45 CBC 2023 024 [facility], [address] [place] [address], [id number], 11/16/2023 12:16:31 HbA1c (hemog lobin A1c), blood 2022 024 [facility], [address] [place] [address], [id number], 03/19/2023 11:30:16 TSH, serum or plasma 2022 024 [facility], [address] [place] [address], [id number], 03/19/2023 15:59:46 Referral dermat ologis t referr al - lesion on left side of cheek, starte d out crusty and not healin g now x 1 week, photo enclos ed pls call pt for appt TY 2022 023 [email or web address] Pricilla Durant MD, [address], [place], [address], 02/15/2023 10:40:41 Procedures None record ed. Surgeries None record ed. Imaging None record ed. Medication Orders amioda jose 200 mg tablet 2024 025 [facility] [address] [place], [address], 04/25/2024 08:27:33 torsem yariel 20 mg tablet 2024 025 [facility] [address] [place], [address], 04/25/2024 08:29:50 gabape ntin 300 mg capsul e 2024 025 [facility] [address], [address] [facility], [place], [place], [id number], 04/25/2024 08:23:21 Bactri m DS 800 mg-[address] [facility] [address] [place], [address], 02/15/2024 09:40:52 Patient TargetsNo targets recorded. Patient Instructions Encounter Date Encounter Id Patient Instructions Last Modified By Organization Details Last Modified Time 02/13/2023 [id number] advance directiv es: care instructions [email or web address] Not available 02/13/2023 09:21:11 preventing falls : care instructions [email or web address] Not available 02/13/2023 09:21:11 hearing loss: ca re instructions [email or web address] Not available 02/13/2023 09:21:11 well visit, over 65: care instructions [email or web address] Not available 02/13/2023 09:21:11 After a discussi on of treatment and medication options, which included consideration of the best practices in medicine, a medical plan was provided. The patient's opinions and concerns were included in this treatment plan and goal. * Maintain 1200 mg of calcium from food sources daily, * Take vitamin D 1100-9575 units daily to help absorption of calcium into your bones * Use sunblock consistently * Review the website: OldCortexpt.org to get more information on the Mediterranean diet - a heart healthy eating plan * Immunizations up to date; COVID vaccine booster recommended. Please get your Shingrix at the pharmacy. * The current guidelines from the [place] [employer] is moderate aerobic physical activity [...] 2020. Continue dance class every Sunday at [facility]. * Colonoscopy is not indicated due to [...] 1500 mg of sodium per day. The [place] [employer] (AHA) recommends 30 minutes of moderate physical activity 5 days a week. A Mediterranean type of diet and a plant based diet is recommended, review the website: Foody. follows Dr Carlisle; placed pt on Jardiance for cardioprotection Atrial fib - tolerating DOAC osteoarthritis - on duloxetine for chronic pain pt declined PHQ-9 and alcohol screening hui Not available 02/14/2023 10:06:33 08/16/2023 [id number] [facility] serves as the focal point for all health care services the patient needs. hui Not available 08/16/2023 10:14:13 02/15/2024 [id number] Per Uptodate: frequent washing and vaginal douching are not helpful and can be harmful. Excessive soaping of the genital area can cause a chemical v??lviti? and douching (rinsing of the vagina with vinegar or an antiseptic with the aid of a douche bag) can increase the risk of vaginal and pelvic infection. TSH consistently normal; off amiodarone, no need to recheck yearly, unless with symptoms hui Not available 02/16/2024 09:54:25 04/25/2024 [id number] Confusion regard ing dosages of amiodarone, torsemide, and losartan. Cost concerns noted. - Ensure understanding of current medication regimen, including cutting torsemide tablets. - discharge summary reviewed and clarified medications with pt. hui Not available 04/26/2024 09:48:21 I am aware of [facility] discharge medications, the medication list above has been reconciled with those medications and reflects my understanding of an up to date medication list for this patient. hui Not available 04/26/2024 09:48:25 Reason for Referral Raisin Separator Operator Referral for L esion of skin of [...] glucose 118 mg/dL 70-100 high Not Available [address], [address], 01/22/2023 16:38:59 01/23/20 23 01/22/2023 BASIC METAB OLIC PANEL BUN 21 mg/dL 7-18 high Not Available [address], [address], 01/22/2023 16:38:59 01/23/20 23 01/22/2023 BASIC METAB OLIC PANEL creatinine 1.0 mg/dL 0.8-1. 3 Not Available [address], [address], 01/22/2023 16:38:59 01/23/20 23 01/22/2023 BASIC METAB OLIC PANEL B/C 21.0 ratio Not Available [address], [address], 01/22/2023 16:38:59 01/23/20 23 01/22/2023 BASIC METAB [...] be used in pregn jan. Not Available [address], [address], 01/22/2023 16:38:59 01/23/20 23 01/22/2023 BASIC METAB OLIC PANEL sodium 142 mmol/ L 136-14 5 Not Available [address], [address], 01/22/2023 16:38:59 01/23/20 23 01/22/2023 BASIC METAB OLIC PANEL potassium 4.9 mmol/ L 3.5-5. 1 Not Available [address], [address], 01/22/2023 16:38:59 01/23/20 23 01/22/2023 BASIC METAB OLIC PANEL chloride 103 mmol/ L 96-107 Not Available [address], [address], 01/22/2023 16:38:59 01/23/20 23 01/22/2023 BASIC METAB OLIC PANEL anion gap 9.6 5.0-15 .0 Not Available [address], [address], 01/22/2023 16:38:59 01/23/20 23 01/22/2023 BASIC METAB OLIC PANEL CO2 29 mmol/ L 21-32 Not Available [address], [address], 01/22/2023 16:38:59 01/23/20 23 01/22/2023 BASIC METAB OLIC PANEL calcium 8.9 mg/dL 8.5-10 .3 Not Available [address], [address], 01/22/2023 16:38:59 01/23/20 23 01/26/2023 TSH TSH 7.92 uIU/m L 0.50-6 .00 high The Ameri can Colle ge of Endoc rinol ogy and Ameri can Thyro id Assoc iatio n recom mend goal TSH value s betwe en 0.4-4 .0 mIU/m L. Not Available [address], [address], 01/26/2023 08:42:04 03/19/19 24 03/19/2023 HGB A1C [...] furth er confi rmati on Not Available [address], [address], 03/19/2023 11:30:16 03/19/19 24 03/19/2023 HGB A1C estimated average glucose 131.2 mg/dL Not Available [address], [address], 03/19/2023 11:30:16 03/19/19 24 03/19/2023 COMP. METAB OLIC PANEL glucose 100 mg/dL 70-100 Not Available [address], [address], 03/19/2023 14:08:31 03/19/19 24 03/19/2023 COMP. METAB OLIC PANEL BUN 22 mg/dL 7-18 high Not Available [address], [address], 03/19/2023 14:08:31 03/19/19 24 03/19/2023 COMP. METAB OLIC PANEL creatinine 1.0 mg/dL 0.8-1. 3 Not Available [address], [address], 03/19/2023 14:08:31 03/19/19 24 03/19/2023 COMP. METAB OLIC PANEL B/C 22.0 ratio Not Available [address], [address], 03/19/2023 14:08:31 03/19/19 24 03/19/2023 COMP. METAB [...] be used in pregn jan. Not Available [address], [address], 03/19/2023 14:08:31 03/19/19 24 03/19/2023 COMP. METAB OLIC PANEL sodium 139 mmol/ L 136-14 5 Not Available [address], [address], 03/19/2023 14:08:31 03/19/19 24 03/19/2023 COMP. METAB OLIC PANEL potassium 4.8 mmol/ L 3.5-5. 1 Not Available [address], [address], 03/19/2023 14:08:31 03/19/19 24 03/19/2023 COMP. METAB OLIC PANEL chloride 101 mmol/ L 96-107 Not Available [address], [address], 03/19/2023 14:08:31 03/19/19 24 03/19/2023 COMP. METAB OLIC PANEL anion gap 10.7 5.0-15 .0 Not Available [address], [address], 03/19/2023 14:08:31 03/19/19 24 03/19/2023 COMP. METAB OLIC PANEL CO2 27 mmol/ L 21-32 Not Available [address], [address], 03/19/2023 14:08:31 03/19/19 24 03/19/2023 COMP. METAB OLIC PANEL calcium 8.5 mg/dL 8.5-10 .3 Not Available [address], [address], 03/19/2023 14:08:31 03/19/19 24 03/19/2023 COMP. METAB OLIC PANEL total protein 6.6 g/dL 6.4-8. 2 Not Available [address], [address], 03/19/2023 14:08:31 03/19/19 24 03/19/2023 COMP. METAB OLIC PANEL albumin 3.2 g/dL 3.4-5. 0 low Not Available [address], [address], 03/19/2023 14:08:31 03/19/19 24 03/19/2023 COMP. METAB OLIC PANEL globulin 3.4 g/dL Not Available [address], [address], 03/19/2023 14:08:31 03/19/19 24 03/19/2023 COMP. METAB OLIC PANEL A/G 0.9 ratio 0.8-2. 0 Not Available [address], [address], 03/19/2023 14:08:31 03/19/19 24 03/19/2023 COMP. METAB OLIC PANEL total bilirubin 0.50 mg/dL 0.00-1 .00 Not Available [address], [address], 03/19/2023 14:08:31 03/19/19 24 03/19/2023 COMP. METAB OLIC PANEL AST 25 U/L 0-37 Not Available [address], [address], 03/19/2023 14:08:31 03/19/19 24 03/19/2023 COMP. METAB OLIC PANEL ALT 29 U/L 6-63 Not Available [address], [address], 03/19/2023 14:08:31 03/19/19 24 03/19/2023 COMP. METAB OLIC PANEL alk. phos. 137 U/L 50-136 high Not Available [address], [address], 03/19/2023 14:08:31 03/19/19 24 03/19/2023 TSH TSH 6.67 uIU/m L 0.50-6 .00 high The Ameri can Colle ge of Endoc rinol ogy and Concha can Thyro id Assoc iatio n recom mend goal TSH value s betwe en 0.4-4 .0 mIU/m L. Not Available [address], [address], 03/19/2023 15:59:46 08/09/19 24 08/09/2023 CBC WBC 5.41 K/??L 3.98-1 0.04 Not Available [address], [address], 08/09/2023 12:33:49 08/09/19 24 08/09/2023 CBC RBC 5.36 M/??L 3.93-5 .22 high Not Available [address], [address], 08/09/2023 12:33:49 08/09/19 24 08/09/2023 CBC HGB 17.0 g/dL 11.2-1 5.7 high Not Available [address], [address], 08/09/2023 12:33:49 08/09/19 24 08/09/2023 CBC HCT 51.6 % 34.1-4 4.9 high Not Available [address], [address], 08/09/2023 12:33:49 08/09/19 24 08/09/2023 CBC MCV 96.3 fL 79.4-9 4.8 high Not Available [address], [address], 08/09/2023 12:33:49 08/09/19 24 08/09/2023 CBC MCH 31.7 pg 25.6-3 2.2 Not Available [address], [address], 08/09/2023 12:33:49 08/09/19 24 08/09/2023 CBC MCHC 32.9 g/dL 32.2-3 5.5 Not Available [address], [address], 08/09/2023 12:33:49 08/09/19 24 08/09/2023 CBC plt 232 K/??L 182-36 9 Not Available [address], [address], 08/09/2023 12:33:49 08/09/19 24 08/09/2023 CBC MPV 10.6 fL 9.4-12 .3 Not Available [address], [address], 08/09/2023 12:33:49 08/09/19 24 08/09/2023 CBC neut% 61.0 % 34.0-7 1.1 Not Available [address], [address], 08/09/2023 12:33:49 08/09/19 24 08/09/2023 CBC neut# 3.30 1.56-6 .13 Not Available [address], [address], 08/09/2023 12:33:49 08/09/19 24 08/09/2023 CBC lymph % 27.2 % 19.3-5 1.7 Not Available [address], [address], 08/09/2023 12:33:49 08/09/19 24 08/09/2023 CBC lymph # 1.47 K/??L 1.18-3 .74 Not Available [address], [address], 08/09/2023 12:33:49 08/09/19 24 08/09/2023 CBC mono% 8.5 % 4.7-12 .5 Not Available [address], [address], 08/09/2023 12:33:49 08/09/19 24 08/09/2023 CBC mono# 0.46 0.24-0 .56 Not Available [address], [address], 08/09/2023 12:33:49 08/09/19 24 08/09/2023 CBC eo% 2.0 % 0.7-5. 8 Not Available [address], [address], 08/09/2023 12:33:49 08/09/19 24 08/09/2023 CBC eo# 0.11 0.04-0 .36 Not Available [address], [address], 08/09/2023 12:33:49 08/09/19 24 08/09/2023 CBC baso% 0.9 % 0.1-1. 2 Not Available [address], [address], 08/09/2023 12:33:49 08/09/19 24 08/09/2023 CBC baso# 0.05 0.00-0 .08 Not Available [address], [address], 08/09/2023 12:33:49 08/09/19 24 08/09/2023 CBC RDW-CV 13.6 % 11.7-1 4.4 Not Available [address], [address], 08/09/2023 12:33:49 08/09/19 24 08/09/2023 CBC Ig% 0.400 % 0.000- 1.500 Ig % >0.5 Indic ates possi ble Left Shift Not Available [address], [address], 08/09/2023 12:33:49 08/09/19 24 08/09/2023 CBC Ig# 0.020 0.000- 0.093 Not Available [address], [address], 08/09/2023 12:33:49 08/09/19 24 08/09/2023 CBC NRBC% 0.0 % 0.0-0. 2 Not Available [address], [address], 08/09/2023 12:33:49 08/09/19 24 08/09/2023 CBC NRBC# 0.000 0.000- 0.012 Not Available [address], [address], 08/09/2023 12:33:49 08/09/19 24 08/09/2023 COMP. METAB OLIC PANEL glucose 106 mg/dL 70-100 high Not Available [address], [address], 08/09/2023 14:47:55 08/09/19 24 08/09/2023 COMP. METAB OLIC PANEL BUN 20 mg/dL 7-18 high Not Available [address], [address], 08/09/2023 14:47:55 08/09/19 24 08/09/2023 COMP. METAB OLIC PANEL creatinine 0.9 mg/dL 0.8-1. 3 Not Available [address], [address], 08/09/2023 14:47:55 08/09/19 24 08/09/2023 COMP. METAB OLIC PANEL B/C 22.2 ratio Not Available [address], [address], 08/09/2023 14:47:55 08/09/19 24 08/09/2023 COMP. METAB [...] be used in pregn jan. Not Available [address], [address], 08/09/2023 14:47:55 08/09/19 24 08/09/2023 COMP. METAB OLIC PANEL sodium 141 mmol/ L 136-14 5 Not Available [address], [address], 08/09/2023 14:47:55 08/09/19 24 08/09/2023 COMP. METAB OLIC PANEL potassium 4.7 mmol/ L 3.5-5. 1 Not Available [address], [address], 08/09/2023 14:47:55 08/09/19 24 08/09/2023 COMP. METAB OLIC PANEL chloride 101 mmol/ L 96-107 Not Available [address], [address], 08/09/2023 14:47:55 08/09/19 24 08/09/2023 COMP. METAB OLIC PANEL anion gap 11.4 5.0-15 .0 Not Available [address], [address], 08/09/2023 14:47:55 08/09/19 24 08/09/2023 COMP. METAB OLIC PANEL CO2 29 mmol/ L 21-32 Not Available [address], [address], 08/09/2023 14:47:55 08/09/19 24 08/09/2023 COMP. METAB OLIC PANEL calcium 8.9 mg/dL 8.5-10 .3 Not Available [address], [address], 08/09/2023 14:47:55 08/09/19 24 08/09/2023 COMP. METAB OLIC PANEL total protein 6.7 g/dL 6.4-8. 2 Not Available [address], [address], 08/09/2023 14:47:55 08/09/19 24 08/09/2023 COMP. METAB OLIC PANEL albumin 3.2 g/dL 3.4-5. 0 low Not Available [address], [address], 08/09/2023 14:47:55 08/09/19 24 08/09/2023 COMP. METAB OLIC PANEL globulin 3.5 g/dL Not Available [address], [address], 08/09/2023 14:47:55 08/09/19 24 08/09/2023 COMP. METAB OLIC PANEL A/G 0.9 ratio 0.8-2. 0 Not Available [address], [address], 08/09/2023 14:47:55 08/09/19 24 08/09/2023 COMP. METAB OLIC PANEL total bilirubin 0.70 mg/dL 0.00-1 .00 Not Available [address], [address], 08/09/2023 14:47:55 08/09/19 24 08/09/2023 COMP. METAB OLIC PANEL AST 28 U/L 0-37 Not Available [address], [address], 08/09/2023 14:47:55 08/09/19 24 08/09/2023 COMP. METAB OLIC PANEL ALT 35 U/L 6-63 Not Available [address], [address], 08/09/2023 14:47:55 08/09/19 24 08/09/2023 COMP. METAB OLIC PANEL alk. phos. 107 U/L 50-136 Not Available [address], [address], 08/09/2023 14:47:55 08/09/19 24 08/09/2023 LIPID PANEL cholesterol 201 mg/dL <200 mg/dl Aries able 200-2 39 mg/dl Borde rline High >240 mg/dl High Not Available [address], [address], 08/09/2023 14:47:56 08/09/19 24 08/09/2023 LIPID PANEL triglyceride s 93 mg/dL <150 mg/dL Crystal l 150-1 99 mg/dL Borde rline High 200-4 99 mg/dL High >500 mg/dL Very High Not Available [address], [address], 08/09/2023 14:47:56 08/09/19 24 08/09/2023 LIPID PANEL direct HDL 59 mg/dL <40 mg/dl - Major Risk for CHD >60 mg/dl - Negat kavya Risk for CHD Not Available [address], [address], 08/09/2023 14:47:56 08/09/19 24 08/09/2023 DIREC T LDL direct LDL 119 mg/dL RISK CATEG ORY LDL GOAL _ CHD or CHD Risk Equiv alent s <100 mg/dl (10-y ear risk >20%) 2+ Risk Facto rs <130 mg/dl (10-y ear risk <= 20%) 0-1 Risk Facto r??? <160 mg/dl ??? Almos t all peopl e with 0-1 risk facto r have a 10 year risk <10%, thus 10 year risk asses ment in peopl e with 0-1 risk facto r is not baltazar grimaldo. Not Available [address], [address], 08/09/2023 14:47:57 08/09/19 24 08/09/2023 TSH TSH 3.91 uIU/m L 0.50-6 .00 The Ameri can Colle ge of Endoc rinol ogy and Ameri can Thyro id Assoc iatio n recom mend goal TSH value s betwe en 0.4-4 .0 mIU/m L. Not Available [address], [address], 08/09/2023 15:34:17 08/09/19 24 08/09/2023 HGB A1C [...] furth er confi rmati on Not Available [address], [address], 08/09/2023 16:15:20 08/09/19 24 08/09/2023 HGB A1C estimated average glucose 128.4 mg/dL Not Available [address], [address], 08/09/2023 16:15:20 11/16/19 24 11/16/2023 CBC WBC 6.01 K/??L 3.98-1 0.04 Not Available [address], [address], 11/16/2023 12:16:31 11/16/19 24 11/16/2023 CBC RBC 5.06 M/??L 3.93-5 .22 Not Available [address], [address], 11/16/2023 12:16:31 11/16/19 24 11/16/2023 CBC HGB 16.5 g/dL 11.2-1 5.7 high Not Available [address], [address], 11/16/2023 12:16:31 11/16/19 24 11/16/2023 CBC HCT 49.2 % 34.1-4 4.9 high Not Available [address], [address], 11/16/2023 12:16:31 11/16/1911/16/2023 CBC MCV 97.2 fL 79.4-9 4.8 high Not Available [address], [address], 11/16/2023 12:16:31 11/16/19 24 11/16/2023 CBC MCH 32.6 pg 25.6-3 2.2 high Not Available [address], [address], 11/16/2023 12:16:31 11/16/19 24 11/16/2023 CBC MCHC 33.5 g/dL 32.2-3 5.5 Not Available [address], [address], 11/16/2023 12:16:31 11/16/1911/16/2023 CBC plt 210 K/??L 182-36 9 Not Available [address], [address], 11/16/2023 12:16:31 11/16/1911/16/2023 CBC MPV 10.4 fL 9.4-12 .3 Not Available [address], [address], 11/16/2023 12:16:31 11/16/19 24 11/16/2023 CBC neut% 57.0 % 34.0-7 1.1 Not Available [address], [address], 11/16/2023 12:16:31 11/16/19 24 11/16/2023 CBC neut# 3.42 1.56-6 .13 Not Available [address], [address], 11/16/2023 12:16:31 11/16/19 24 11/16/2023 CBC lymph % 30.3 % 19.3-5 1.7 Not Available [address], [address], 11/16/2023 12:16:31 11/16/1911/16/2023 CBC lymph # 1.82 K/??L 1.18-3 .74 Not Available [address], [address], 11/16/2023 12:16:31 11/16/19 24 11/16/2023 CBC mono% 9.8 % 4.7-12 .5 Not Available [address], [address], 11/16/2023 12:16:31 11/16/19 24 11/16/2023 CBC mono# 0.59 0.24-0 .56 high Not Available [address], [address], 11/16/2023 12:16:31 11/16/19 24 11/16/2023 CBC eo% 1.8 % 0.7-5. 8 Not Available [address], [address], 11/16/2023 12:16:31 11/16/19 24 11/16/2023 CBC eo# 0.11 0.04-0 .36 Not Available [address], [address], 11/16/2023 12:16:31 11/16/19 24 11/16/2023 CBC baso% 0.8 % 0.1-1. 2 Not Available [address], [address], 11/16/2023 12:16:31 11/16/19 24 11/16/2023 CBC baso# 0.05 0.00-0 .08 Not Available [address], [address], 11/16/2023 12:16:31 11/16/19 24 11/16/2023 CBC RDW-CV 13.5 % 11.7-1 4.4 Not Available [address], [address], 11/16/2023 12:16:11/16/19 24 11/16/2023 CBC Ig% 0.300 % 0.000- 1.500 Ig % >0.5 Indic ates possi ble Left Shift Not Available [address], [address], 11/16/2023 12:16:31 11/16/1911/16/2023 CBC Ig# 0.020 0.000- 0.093 Not Available [address], [address], 11/16/2023 12:16:31 11/16/19 24 11/16/2023 CBC NRBC% 0.0 % 0.0-0. 2 Not Available [address], [address], 11/16/2023 12:16:31 11/16/19 24 11/16/2023 CBC NRBC# 0.000 0.000- 0.012 Not Available [address], [address], 11/16/2023 12:16:31 11/16/19 24 11/19/2023 TSH TSH 2.54 uIU/m L 0.50-6 .00 The Ameri can Colle ge of Endoc rinol ogy and Ameri can Thyro id Assoc iatio n recom mend goal TSH value s betwe en 0.4-4 .0 mIU/m L. Not Available [address], [address], 11/19/2023 10:41:45 01/16/20 24 01/16/2024 POC UA glu UA 2+ abnormal Not Available [facility] [address] [place] [address], [address], 01/16/2024 15:50:12 01/16/20 24 01/16/2024 POC UA clarity UA SLIGHT LY CLOUDY Not Available [facility] [address] [place] [address], [address], 01/16/2024 15:50:12 01/16/20 24 01/16/2024 POC UA uro UA 0.2000 Not Available [facility] [address] [place] [address], [address], 01/16/2024 15:50:12 01/16/20 24 01/16/2024 POC UA ket UA NEGATI VE Not Available [facility] [address] [place] [address], [address], 01/16/2024 15:50:12 01/16/20 24 01/16/2024 POC UA pro UA NEGATI VE Not Available [facility] [address] [place] [address], [address], 01/16/2024 15:50:12 01/16/20 24 01/16/2024 POC UA nit UA NEGATI VE Not Available [facility] [address] [place] [address], [address], 01/16/2024 15:50:12 01/16/20 24 01/16/2024 POC UA walter UA 1+ abnormal Not Available [facility] [address] [place] [address], [address], 01/16/2024 15:50:12 01/16/20 24 01/16/2024 POC UA pH UA 6.0000 Not Available [facility] [address] [place] [address], [address], 01/16/2024 15:50:12 01/16/20 24 01/16/2024 POC UA SG UA 1.0250 Not Available [facility] [address] [place] [address], [address], 01/16/2024 15:50:12 01/16/20 24 01/16/2024 POC UA color UA YELLOW Not Available [facility] [address] [place] [address], [address], 01/16/2024 15:50:12 01/16/20 24 01/16/2024 POC UA blo UA NEGATI VE Not Available [facility] [address] [place] [address], [address], 01/16/2024 15:50:12 01/16/20 24 01/16/2024 POC UA cassi UA NEGATI VE Not Available [facility] [address] [place] [address], [address], 01/16/2024 15:50:12 02/11/20 24 02/11/2024 FREE T4 free T4 1.32 NG/dL 0.75-1 .54 Not Available [address], [address], 02/11/2024 16:17:45 02/11/20 24 02/12/2024 TSH TSH 2.66 uIU/m L 0.50-6 .00 [facility] [employer] [facility] n recom mend goal TSH value s betwe en 0.4-4 .0 mIU/m L. Not Available [address], [address], 02/12/2024 11:54:47 02/11/20 24 02/12/2024 BASIC METAB OLIC PANEL glucose 149 mg/dL 70-100 high Not Available [address], [address], 02/12/2024 15:54:18 02/11/20 24 02/12/2024 BASIC METAB OLIC PANEL BUN 17 mg/dL 7-18 Not Available [address], [address], 02/12/2024 15:54:18 02/11/20 24 02/12/2024 BASIC METAB OLIC PANEL creatinine 1.0 mg/dL 0.8-1. 3 Not Available [address], [address], 02/12/2024 15:54:18 02/11/20 24 02/12/2024 BASIC METAB OLIC PANEL B/C 17.0 ratio Not Available [address], [address], 02/12/2024 15:54:18 02/11/20 24 02/12/2024 BASIC METAB [...] be used in pregn jan. Not Available [address], [address], 02/12/2024 15:54:18 02/11/20 24 02/12/2024 BASIC METAB OLIC PANEL sodium 141 mmol/ L 136-14 5 Not Available [address] [place], [address], 02/12/2024 15:54:18 02/11/20 24 02/12/2024 BASIC METAB OLIC PANEL potassium 5.0 mmol/ L 3.5-5. 1 Not Available [address], [address], 02/12/2024 15:54:18 02/11/20 24 02/12/2024 BASIC METAB OLIC PANEL chloride 105 mmol/ L 96-107 Not Available [address], [address], 02/12/2024 15:54:18 02/11/20 24 02/12/2024 BASIC METAB OLIC PANEL anion gap 8.4 5.0-15 .0 Not Available [address], [address], 02/12/2024 15:54:18 02/11/20 24 02/12/2024 BASIC METAB OLIC PANEL CO2 28 mmol/ L 21-32 Not Available [address], [address], 02/12/2024 15:54:18 02/11/20 24 02/12/2024 BASIC METAB OLIC PANEL calcium 8.8 mg/dL 8.5-10 .3 Not Available [address], [address], 02/12/2024 15:54:18 02/11/20 24 02/12/2024 LIPID PANEL cholesterol 188 mg/dL <200 mg/dl Aries able 200-2 39 mg/dl Borde rline High >240 mg/dl High Not Available [address], [address], 02/12/2024 15:54:19 02/11/20 24 02/12/2024 LIPID PANEL triglyceride s 146 mg/dL <150 mg/dL Crystal l 150-1 99 mg/dL Borde rline High 200-4 99 mg/dL High >500 mg/dL Very High Not Available [address], [address], 02/12/2024 15:54:19 02/11/20 24 02/12/2024 LIPID PANEL direct HDL 52 mg/dL <40 mg/dl - Major Risk for CHD >60 mg/dl - Negat kavya Risk for CHD Not Available [address], [address], 02/12/2024 15:54:19 02/11/20 24 02/12/2024 DIREC T LDL direct LDL 107 mg/dL RISK CATEG ORY LDL GOAL _ CHD or CHD Risk Equiv alent s <100 mg/dl (10-y ear risk >20%) 2+ Risk Facto rs <130 mg/dl (10-y ear risk <= 20%) 0-1 Risk Facto r??? <160 mg/dl ??? Almos t all peopl e with 0-1 risk facto r have a 10 year risk <10%, thus 10 year risk asses ment in peopl e with 0-1 risk facto r is not neces dillan. Not Available [address], [address], 02/12/2024 15:54:20 02/15/20 24 02/15/2024 HGB A1C [...] furth er confi rmati on Not Available [address], [address], 02/15/2024 14:07:16 02/15/20 24 02/15/2024 HGB A1C estimated average glucose 128.4 mg/dL Not Available [address], [address], 02/15/2024 14:07:16 04/25/19 25 04/25/2024 BASIC METAB OLIC PANEL glucose 91 mg/dL 70-100 Not Available [address], [address], 04/25/2024 12:53:40 04/25/19 25 04/25/2024 BASIC METAB OLIC PANEL BUN 25 mg/dL 7-18 high Not Available [address], [address], 04/25/2024 12:53:40 04/25/19 25 04/25/2024 BASIC METAB OLIC PANEL creatinine 1.1 mg/dL 0.8-1. 3 Not Available [address], [address], 04/25/2024 12:53:40 04/25/19 25 04/25/2024 BASIC METAB OLIC PANEL B/C 22.7 ratio Not Available [address], [address], 04/25/2024 12:53:40 04/25/1904/25/2024 BASIC METAB OLIC PANEL GFR 50.2 mL/mi n abnormal >=60m L/min - Crystal [...] be used in pregn jan. Not Available [address], [address], 04/25/2024 12:53:40 04/25/19 25 04/25/2024 BASIC METAB OLIC PANEL sodium 140 mmol/ L 136-14 5 Not Available [address], [address], 04/25/2024 12:53:40 04/25/19 25 04/25/2024 BASIC METAB OLIC PANEL potassium 4.3 mmol/ L 3.5-5. 1 Not Available [address], [address], 04/25/2024 12:53:40 04/25/19 25 04/25/2024 BASIC METAB OLIC PANEL chloride 102 mmol/ L 96-107 Not Available [address], [address], 04/25/2024 12:53:40 04/25/19 25 04/25/2024 BASIC METAB OLIC PANEL anion gap 7.2 5.0-15 .0 Not Available [address], [address], 04/25/2024 12:53:40 04/25/19 25 04/25/2024 BASIC METAB OLIC PANEL CO2 31 mmol/ L 21-32 Not Available [address], [address], 04/25/2024 12:53:40 04/25/19 25 04/25/2024 BASIC METAB OLIC PANEL calcium 8.9 mg/dL 8.5-10 .3 Not Available [address], [address], 04/25/2024 12:53:40 04/10/19 25 04/10/2024 XR, chest No observ ation record ed. yo [facility] [address] [place], [address], 04/11/2024 07:32:46 Result Notes None recorded. Problems Name Problem SNOMED Code Status Onset Date Resolution Date Notes Provider Name and Address Organization Details Recorded Time Herpes labialis 0022372 Completed 03/14/2016 Removal Reason: in error, tx with antibiot ic ointment by Dr Durant and resolved in 1 week. Mert Yin MD [address] [place] [address], [address] , [facility] 7 11:41:35 Impaired fasting glycemia 771634127 Active 2015 Not Available [facility] 2 11:50:31 Peripher al venous insuffic iency 21635351 Active 2015 Not Available [facility] 2 11:50:31 Obesity 827613804 Completed 201512/08/2021 Removal Reason: Morbid obesity added to the problem list RENETTA Ray, [facility] 2 13:38:39 Retinal artery occlusio n 221275782 Active 2016 Not Available [facility] 2 11:50:31 Atrial fibrilla tion 44359907 Active 2017 Not Available [facility] 2 11:50:31 Sick sinus syndrome 09830040 Active 2017 due to amiodaro ne use q 6 mos TSH per [facility] Not Available [facility] 2 11:50:31 Obstruct kavya sleep apnea syndrome 06188555 Active 2017 Not Available [facility] 2 11:50:31 Morbid obesity 480151900 Completed 201804/21/2021 BMI > or = 35 with diagnosi s of hyperten ruddy Removal Reason: BMI 36.8 08/27/20. no other qualifyi ng comorbid ities. RENETTA Ray [facility] 2 13:38:27 Chronic obstruct kavya pulmonar y disease 70142757 Completed 201812/27/2020 coded 10/07/18 CT chest Removal Reason: not a dx Mert Yin MD [address] [place] [address], [address] , [facility] 1 08:33:53 Transien t cerebral ischemia 016995931 Active 2019 Not Available [facility] 2 11:50:31 Nico l hyperten ruddy 35561266 Active 2021 Not Available [facility] 2 11:50:31 Morbid obesity 132287403 Active 2018 BMI > or = 35 with diagnosi s of hyperten ruddy Rupali Rod LPN null, [facility] 2 13:38:27 Chronic kidney disease stage 3 558517792 Active 2022 GFR = 57, CMP 04/18/22 Norma Hunt LPN null, [facility] 3 12:41:32 Prediabe sunil 483367086 Active 2022 Mert Yin MD [address] [place] [address], [address] , [facility] 3 09:48:39 Hypercoa gulabili ty state 82890017 Active 2022 Mert Yin MD [address] [place] [address], [address] , [facility] 3 09:56:58 Heart failure with normal ejection fraction 311061180 Active 2023 exacerba tion 04/10/24 Komal Scott RN null, [facility] 5 13:34:18 Stasis dermatit is 92359554 Active 2024 Mert Yin MD [address] [place] [address], [address] , [facility] 5 09:45:26 Dermatop hytosis of the body Completed 200009/22/2011 Benny Fairchild MD [address] [place] [address], [address] , [facility] 6 08:54:16 Abnormal findings on diagnost ic imaging of breast 275111932 Completed 01/25/2016 Celine Álvarez PA-C [address] [place] [address], [address] , [facility] 6 09:09:47 Gastroes ophageal reflux disease 458758936 Completed 200601/25/2016 Celine Álvarez PA-C [address] [place] [address], , [facility] 6 09:26:19 Precordi al pain 05516611 Completed 200609/22/2011 Benny Fairchild MD [address] [place] [address], , [facility] 6 08:54:16 Feces contents abnormal 010114771 Completed 09/22/2011 Benny Fairchild MD [address] [place] [address], , [facility] 6 08:54:16 Multiple joint pain 19462077 Completed 200409/22/2011 Benny Fairchild MD [address] [place] [address], , [facility] 6 08:54:16 Benign essentia l hyperten ruddy 7495703 Completed 11/25/2019 Removal Reason: revised Mert Yin MD [address] [place] [address], , [facility] 0 09:21:38 Influenz a 1754534 Completed 09/22/2011 Benny Fairchild MD [address] [place] [address], , [facility] 6 08:54:16 Anxiety state 175333712 Completed 200609/22/2011 Benny Fairchild MD [address] [place] [address], , [facility] 6 08:54:16 Glucose level outside referenc e range 759270382 Completed 200509/22/2011 Benny Fairchild MD [address] [place] [address], , [facility] 6 08:54:16 Dizzines s 953576043 Completed 09/22/2011 Benny Fairchild MD [address] [place] [address], [address] , [facility] 6 08:54:16 Atopic dermatit is 31001207 Completed 200701/25/2016 Celine Álvarez PA-C [address] [place] [address], [address] , [facility] 6 09:09:51 Acute stress disorder 58393003 Completed 200509/22/2011 Benny Fairchild MD [address] [place] [address], [address] , [facility] 6 08:54:16 Joint pain 81405625 Completed 200409/22/2011 Benny Fairchild MD [address] [place] [address], [address] , [facility] 6 08:54:16 Anemia 434345387 Completed 200309/22/2011 Benny Fairchild MD [address] [place] [address], [address] , [facility] 6 08:54:16 Acute maxillar y sinusiti s 49137983 Completed 200109/22/2011 Benny Fairchild MD [address] [place] [address], [address] , [facility] 6 08:54:16 Elevated blood-pr essure reading without diagnosi s of hyperten ruddy 135936538 Completed 200109/22/2011 Benny Fairchild MD [address] [place] [address], [address] , [facility] 6 08:54:16 Degenera tive joint disease involvin g multiple joints 113356090 Active 2005 Not Available [facility] 2 11:50:31 Hyperlip idemia 78198245 Completed 200109/22/2011 Benny Fairchild MD [address] [place] [address], [address] , [facility] 6 08:54:16 Pain in wrist 57182064 Completed 200409/22/2011 Benny Fairchild MD [address] [place] [address], [address] , [facility] 6 08:54:16 Acute bronchit is 41300063 Completed 200109/22/2011 Benny Fairchild MD [address] [place] [address], [address] , [facility] 6 08:54:16 Malaise and fatigue 810594109 Completed 200509/22/2011 Benny Fairchild MD [address] [place] [address], [address] , [facility] 6 08:54:16 Headache 15646580 Completed 200609/22/2011 Benny Fairchild MD [address] [place] [address], [address] , [facility] 6 08:54:16 Rheumato id arthriti s 41295391 Completed 200401/25/2016 Celine Álvarez PA-C [address] [place] [address], [address] , [facility] 6 09:09:04 Shoulder pain 16986451 Completed 200709/22/2011 Benny Fairchild MD [address] [place] [address], [address] , [facility] 6 08:54:16 Impacted cerumen 82172785 Completed 200709/22/2011 Benny Fairchild MD [address] [place] [address], [address] , [facility] 6 08:54:16 Plantar fasciiti s 677754434 Completed 200701/25/2016 Celine Álvarez PA-C [address] [place] [address], [address] , [facility] 6 09:26:13 Insomnia 662578682 Active 2005 Not Available [facility] 2 11:50:31 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 293875637 Completed 200409/22/2011 Benny Fairchild MD [address] [place] [address], [address] , [facility] 6 08:54:16 Urticari a 518615729 Completed 200409/22/2011 Benny Fiarchild MD [address] [place] [address], [address] , [facility] 6 08:54:16 Abdomina l pain 23758923 Completed 09/22/2011 Benny Fairchild MD [address] [place] [address], [address] , [facility] 6 08:54:16 Nonvenom ous insect bite of multiple sites 154039962 Completed 200109/22/2011 Benny Fairchild MD [address] [place] [address], [address] , [facility] 6 08:54:16 Common cold 34453756 Completed 200309/22/2011 Benny Fairchild MD [address] [place] [address], [address] , [facility] 6 08:54:16 Hand joint pain 473242212 Completed 200409/22/2011 Benny Fairchild MD [address] [place] [address], [address] , [facility] 6 08:54:16 On examinat ion - a rash Completed 200109/22/2011 Benny Fairchild MD [address] [place] [address], [address] , [facility] 6 08:54:16 Menopaus al symptom 18473144 Completed 200309/22/2011 Benny Fairchild MD [address] [place] [address], [address] , [facility] 6 08:54:16 Hearing loss 78412455 Active Not Available [facility] 2 11:50:31 Problem Notes None recorded. Procedures Surgical History Date Name Laterality Status Provider Name and Address Organization Details Recorded Time 04/25/19 25 Post hospital/SNF follow-up/Transiti onal Care completed Samantha Rose [facility] 04/25/2024 07:50:44 08/16/19 24 G2211 completed Mert Yin MD [address] [place] [address], [address], [facility] 08/16/2023 10:14:14 02/14/20 23 Medicare Wellness Visit completed Serenity Dawson MA [facility] 02/13/2023 07:46:28 03/16/19 23 Medicare Wellness Visit completed Serenity Dawson [facility] 03/14/2022 15:49:23 03/16/19 23 Alcohol use screening completed Serenity Dawson [facility] 03/14/2022 15:49:23 03/16/19 23 Cardiovascular disease risk reduction counseling completed Serenity Dawson [facility] 03/14/2022 15:49:23 06/24/19 22 Medicare Wellness Visit completed Serenity Dawson [facility] 06/23/2021 09:27:16 06/24/19 22 Alcohol use screening completed Serenity Dawson [facility] 06/23/2021 09:27:16 06/24/19 22 Cardiovascular disease risk reduction counseling completed Serenity Dawson [facility] 06/23/2021 09:27:16 06/24/19 22 Medicare Risk for Falls Screen completed Serenity Dawson [facility] 06/23/2021 09:35:53 01/12/20 21 Total hip arthroplasty completed Mert Yin MD [address] [place] [address], [address], [facility] 01/16/2021 11:17:18 06/22/19 21 Medicare Wellness Visit completed Lluvia Chowdhury [facility] 06/21/2020 08:50:08 06/22/19 21 prevention-cardiov ascular risk reduction counseling completed Lluvia Chowdhury [facility] 06/21/2020 08:50:08 06/22/19 21 prevention-annual alcohol misuse screening completed Lluvia Chowdhury [facility] 06/21/2020 08:50:08 05/02/19 20 Wound Care completed Nicole Brewer RN, BSN [facility] 05/02/2019 12:25:01 05/02/19 20 Medicare Risk for Falls Screen completed Jimgabriel Gutierrez [facility] 05/02/2019 11:29:14 04/17/19 20 Wound Care completed JEWEL Gonzalez [facility] 04/17/2019 08:40:23 04/17/19 20 Suture/staple Removal completed Mert Yin MD [address] [place] [address], [address], [facility] 04/17/2019 08:56:57 04/10/19 20 Post hospital/SNF follow-up/Transiti onal Care completed Tanika Nettles [facility] 04/10/2019 11:49:25 04/10/19 20 Wound Care completed Mert Yin MD [address] [place] [address], [address], [facility] 04/11/2019 09:14:47 12/18/19 19 Medicare Wellness Visit completed Desmond Fielsd [facility] 12/17/2018 11:08:37 01/31/20 18 POC Coag Testing completed Mariana Og [employer] [facility] 01/30/2018 10:40:11 11/06/19 18 POC Coag Testing completed JEWEL Bray [facility] 11/05/2017 14:08:54 10/31/19 18 POC Coag Testing completed Mariana Og LPN [facility] 10/30/2017 10:36:33 09/21/19 18 Medicare Wellness Visit completed Inez Garcia [facility] 09/20/2017 09:43:08 09/21/19 18 Advanced Care Planning completed Inez Garcia [facility] 09/20/2017 09:42:58 08/09/19 18 POC Coag Testing completed Humera Lott [facility] 08/08/2017 11:45:09 08/02/19 18 POC Coag Testing completed Hum[facility] 08/01/2017 10:40:29 08/01/19 18 POC Coag Testing completed JEWEL Bray [facility] 08/01/2017 07:58:45 07/31/19 18 POC Coag Testing completed Humera [facility] 07/30/2017 09:11:06 07/29/19 18 POC Coag Testing completed Nicole Brewer RN, BSN [facility] 07/28/2017 12:06:09 07/28/19 18 POC Coag Testing completed [facility] 07/27/2017 13:32:24 07/26/19 18 POC Coag Testing completed [facility] 07/25/2017 11:41:39 07/25/19 18 POC Coag Testing completed [facility] 07/24/2017 11:20:44 07/24/19 18 POC Coag Testing completed Kavitha Mayers RN [facility] 07/23/2017 11:18:23 07/20/19 18 POC Coag Testing completed Kavitha Mayers RN [facility] 07/19/2017 11:15:29 07/18/19 18 Post hospital/SNF follow-up/Transiti onal Care completed Lacey Espinal NP [address] [place] [address], [address], [facility] 07/18/2017 10:37:02 09/20/19 17 Medicare Wellness Visit completed Inez Garcia [facility] 09/19/2016 09:57:06 09/20/19 17 Cerumen Removal - Irrigation/Lavage completed Ambreen Yi [facility] 09/19/2016 11:03:38 10/19/19 16 Medicare Risk for Falls Screen completed Mercy Savage [facility] 10/19/2015 12:06:45 03/31/19 16 Medicare Wellness Visit completed Cindy Krueger RN [facility] 03/31/2015 08:35:10 03/30/19 15 Medicare Wellness Visit completed Benny Fairchild MD [address] [place], [address], [facility] 03/30/2014 09:10:32 02/29/20 13 Medicare Wellness Visit completed Rebecca West LPN [facility] 02/28/2013 09:59:20 03/25/19 13 Treatment and Advice completed Amanda Winn Ms, PT [address] [place], [address], [facility] 03/25/2012 17:59:02 03/18/19 13 Treatment and Advice completed Amanda Winn Ms, PT [address] [place], [address], [facility] 03/18/2012 15:15:35 02/28/20 12 Treatment and Advice completed Amanda Winn Ms, PT [address] [place], [address], [facility] 02/28/2012 16:29:43 02/26/20 12 Treatment and Advice completed Amanda Winn Ms, PT [address] [place], [address], [facility] 02/26/2012 15:15:27 02/21/20 12 Treatment and Advice completed Amanda Winn Ms, PT [address] [place], [address], [facility] 02/21/2012 20:49:33 02/20/20 12 Treatment and Advice completed Amanda Winn Ms, PT [address] [place], [address], [facility] 02/20/2012 13:08:56 02/14/20 12 Treatment and Advice completed Amanda Winn Ms, PT [address] [place], [address], [facility] 02/14/2012 16:25:17 02/09/20 12 Medicare Wellness Visit completed Tien Scott LPN [facility] 02/09/2012 10:10:30 08/03/19 12 Cholecystectomy completed Benny Fairchild MD [address] [place], [address], [facility] 05/09/2012 12:22:14 02/02/20 11 Medicare Wellness Visit completed Benny Fairchild MD [address] [place] [address], [address], [facility] 02/01/2011 12:44:11 Cataract Surgery completed Mert Yin MD [address] [place] [address], [address], [facility] 09/19/2016 10:35:52 Imaging Results Imaging Date Name Status LastModified by Organiz ation Details LastModified Time 04/10/2024 XR, chest completed [address], [place], [address], 04/11/2024 07:32:46 Procedure Notes None recorded. Medical Equipment None Reported. Allergies Allergen ID Allergen Name Allergen Category Reaction Reaction Severity Criticality Documentation Date Start Date Code Code System Note Provider Name and Address Organization Details Recorded Time 375145 amlodipin e medicatio n other mild Not available 05/09/2012 99640 RxNorm edema Benny Fairchild MD [address] [place] [address] [place], [address], [facility] 3 12:25:30 953525 hydrochlo rothiazid e medicatio n Not available Not available Not available 05/09/2012 5487 RxNorm elect rolyt e abnor malit ies Inez Garcia [facility] null, [facility] 8 09:36:02 883186 valacyclo vir medicatio n other Not available Not available 03/27/2014 05149 RxNorm mild ARF Benny Fairchild MD [address] [place] [address] [place], [address], [facility] 5 09:39:42 7815 amoxicill in medicatio n Not available Not available Not available 06/15/2008 723 RxNorm Benny Fairchild MD [address] [place], [place] [address]C[place], [address], [facility] 3 12:24:41 [address]54[address] losartan medicatio n Not available Not available Not available 08/01/2011 68294 RxNorm Benny Fairchild MD [address] [place] [address] [place], [address], [facility] 3 12:25:01 [address]3666 lisinopri l medicatio n cough Not available Not available 09/22/2011 35791 RxNorm Benny Fairchild MD [address] [place] [address], [place], [address], [facility] 2 10:38:02 Medications Name Sig Start Date [...] by oral route. 2020 active per 01/24 [facility] med dc list.dis olve in 4-8oz of fluid--h old for loose stools Not Available Not Available Not Available Colace 100 mg capsule Take 1 capsule twice a day by oral route. 06/23 completed per 01/24 [facility] med dc list Not Available Not Available Not Available acetamino phen 325 mg tablet Take 2 tablets every 6 hours by oral route as needed. active per 04/14/24 [facility] [place] . Not Available Not Available Not Available doxycycli ne hyclate 100 mg capsule TAKE 1 CAPSULE BY MOUTH 2 TIMES A DAY FOR 10 DAYS 06/11 completed Not Available Not Available Not Available torsemide 20 mg tablet Take 0.5 tablets every day by oral route for 30 days, for CHF. 2024 active Not Available Not Available Not Avai lable Acetamino phen Extra Strength 500 mg tablet Take 2 tablets every 8 hours by oral route. 04/14 completed Do not exceed 3000mg per day. taken at 8/2/8p. per 01/24 [facility] med dc list Not Available Not Available [...] t Available amiodaron e 200 mg tablet Take 2 tablets twice a day by oral route for 30 days, for CHF. active Not Available Not Available No t Available hydrocort isone valerate 0.2 % topical [...] by oral route. 02/08 completed per 01/24 [facility] med dc list- OTC Not Available Not Available Not Available ondansetr on HCl 4 mg tablet take 1 tablet by mouth every 8 hours if needed 12/17 completed doesnt take 12/17/18 sj Not Available Not Available Not Available torsemide 10 mg tablet TAKE 1 TABLET BY MOUTH EVERY DAY 04/14 completed Not Available Not Available Not Available Flonase 50 mcg/actua tion nasal spray,tyrone pension [place] 2 sprays every day by intranas al [...] Avai lable gabapenti n 300 mg capsule Take 1 capsule twice a day by oral route for 30 days, for neuropat hy. active Not Available Not Available No t Available diltiazem CD 120 mg capsule,e xtended [...] completed Not Available Not Available Not Available gabapenti n 100 mg capsule Take 1 capsule every day by oral route. 04/25 completed new per 04/14/24 [facility] [place] med dc list Not Available Not Available Not Available metoprolo [...] TAKE 1 TABLET BY MOUTH EVERY DAY 04/14 completed Not Available Not Available Not Available amoxicill in 500 mg-potass ium clavulana te [...] completed Not Available Not Available Not Available cholecalc iferol (vitamin D3) 125 mcg (5,000 unit) tablet Take 1 tablet every day by oral route. active Per [place] [facility] list 04/16/24 cc Not Available Not Available Not Available Pradaxa [...] by oral route. 07/12 completed per 07/02 [facility] med dc list - dose increase d [...] Not Available Not Available Not Available Fluad 2018- 65yr up(PF)45 mcg(15 mcgx3)/0. 5 mL intramusc ular syringe inject 0.5 millilit ers intramus cularly 02/03 completed Not Available Not Available Not Available Fluzone High-Dose Quad (PF) 240 mcg/0.7 mL IM syringe ADM 0.7ML IM UTD 08/27 completed Not Available Not Available Not Available PreserVis ion AREDS-2 250 mg-90 mg-40 mg-1 mg chewable tablet Take 1 tablet twice a day by oral route. active Per [facility] list 04/16/24 cc Not Available Not Available Not Available Vitals Date Recorded Body height Body mass index (BMI) Body weight Heart rate Systolic blood pressure Diastolic blood pressure Provider Name and Address Organization Details Last Updated DateTime 3 161.29 cm 38.7 kg/m2 378200. 21 g 84 /min 126 mm[Hg] 86 mm[Hg] Serenity Dawson MA [facility] 3 08:54:09 Date Recorded Systolic blood pressure Diastolic blood pressure Provider Name and Address Organization Details Last Updated DateTime 02/13/2023 120 mm[Hg] 68 mm[Hg] Mert Yin MD [address] [place] [address], [id number] 02/13/2023 09:24:12 Date Recorded Body height Body mass index (BMI) Body weight Heart rate Systolic blood pressure Diastolic blood pressure Provider Name and Address Organization Details Last Updated DateTime 4 161.29 cm 39.9 kg/m2 331908. 65 g 72 /min 132 mm[Hg] 82 mm[Hg] Serenity Dawson MA [facility] 4 09:38:11 Date Recorded Systolic blood pressure Diastolic blood pressure Provider Name and Address Organization Details Last Updated DateTime 08/16/2023 126 mm[Hg] 78 mm[Hg] Mert Yin MD [address] [place] [address], [id number], [facility] 08/16/2023 10:20:14 Date Recorded Body height Body mass index (BMI) Body weight Oxygen saturation Oxygen saturation in Arterial blood by Pulse oximetry Heart rate Body temperature Systolic blood pressure Diastolic blood pressure Provider Name and Address Organization Details Last Updated DateTime 4 161.29 cm 39.9 kg/m2 273376. 65 g 96 % 96 % 95 /min 97.7 [degF] 114 mm[Hg] 74 mm[Hg] Taylor Walker [facility] 4 15:36:38 Date Recorded Body height Body mass index (BMI) Body weight Heart rate Systolic blood pressure Diastolic blood pressure Provider Name and Address Organization Details Last Updated DateTime 4 161.29 cm 39.8 kg/m2 549531. 06 g 80 /min 128 mm[Hg] 70 mm[Hg] Serenity Dawson [facility] 4 09:44:21 Date Recorded Body height Body mass index (BMI) Body weight Heart rate Systolic blood pressure Diastolic blood pressure Provider Name and Address Organization Details Last Updated DateTime 5 161.29 cm 39.6 kg/m2 336518. 57 g 76 /min 118 mm[Hg] 70 mm[Hg] [facility] 07:59[facility]27 Date Recorded Systolic blood pressure Diastolic blood pressure Provider Name and Address Organization Details Last Updated DateTime 02/22/2023 125 mm[Hg] 70 mm[Hg] Kavitha Mayers RN BSN [facility] 02/22/2023 11:36:45 Social History Question Answer Notes LastModified by Organization Details LastModified Time Tobacco Smoking Status Former Smoker quit 2000 Not Available [facility] 08/04/2010 02:08:17 What Is Your Level Of [...] not available 03/07/2019 What Is Your Occupation? [employer] Information not available 01/26/2011 When Did You Quit Smoking? 16+yearssincel xenia Information not available 01/16/2024 How Many Days In The Past Year Have You Had A Heavy Drinking Consumption (4+ Female, 5+ Male)? 0 Information not available 03/31/2015 Are There Any Guns Present In Your Home? No Information not available 06/24/2014 Live Alone Or With Others? With Others Information not available 03/16/2022 Patient Has Health Care Proxy Signed And In Chart Yes Tae 39 Yrs M. Information not available 02/28/2013 Case Referred By Healthcare Provider Mert Stewart Information not available 07/17/2017 Reason For Case [...] U/S). Unstable PT/INR. Med Changes 07/20 By Wind Tunnel Technician. BLE Edema New Since 07/20- Started On [...] Services -agreeable To Outpatient Physical Therapy @ [facility]. -spouse/family Will Be Assisting Her -Ultra Sound Of Lt Arm /6( + DVT) -acceptance Of CD-[facility]NA Mcc 07/31 Referral -HVES HMK In Place Information not available 07/17/2017 MOLST Form Signed And In Chart 09/25/2017 [email or web address] Information not available 11/21/2017 CCM Consent Discussion 06/23/2021 [email or web address] Information not available 06/24/2021 Marital Status Fritz Rutledge, 36 Yrs.m. Information not available 03/16/2022 Mosquito Repellent Used [...] ars Started Age 17 To Year 1999. Information not available 01/16/2024 Seat Belts Used Routinely Yes Information not available 03/16/2022 Are You Sexually Active? No Information not available 01/26/2011 Smoke Alarm In Home Yes Information not available 03/16/2022 At What Age [...] available 2022 08:52:50 Medical History Condition Response INFECTIOUS DISEASE Y Obesity Y Allergic Rhinitis Y METABOLIC Y Hypertension Y Gynecological History Statement/Question Response History of Abnormal Pap N LMP Obstetrics History GPAL:G 0 P 0 0 0 0 Immunizations Vaccine Type Date Status Note Provider Nam e and Address Organization Details Recorded Time influenza, unspecified formulation 5 completed Not Available [facility] 01/25/2011 05:21:07 Td(adult) unspecified formulation 8 completed Not Available [facility] 01/25/2011 05:21:55 pneumococcal polysaccharide PPV23 8 completed Kiersten Trevizo [facility] 03/16/2022 08:52:54 Influenza, split virus, trivalent, preservative 2 completed Not Available [facility] 03/29/2019 02:25:37 Influenza, split virus, quadrivalent, PF 3 completed Not Available [facility] 03/29/2019 02:31:15 Influenza, split virus, quadrivalent, PF 4 completed Not Available [facility] 03/29/2019 02:20:14 zoster live 0 completed Not Available [facility] 03/29/2019 02:25:36 Influenza, high-dose, trivalent, PF 5 completed Not Available [facility] 03/29/2019 02:33:06 Pneumococcal conjugate PCV 13 6 completed Not Available [facility] 03/29/2019 02:37:10 Influenza, high-dose, trivalent, PF 6 completed Not Available [facility] 03/29/2019 02:35:34 Influenza, high-dose, trivalent, PF 7 completed Not Available [facility] 03/29/2019 02:34:53 zoster recombinant 8 completed [facility] 02/15/2024 09:41:50 Influenza, high-dose, quadrivalent, PF 0 completed Kiersten dk [facility] 03/16/2022 08:52:53 Influenza, split virus, trivalent, preservative 0 completed Not Available [facility] 03/29/2019 02:17:47 Tdap 0 completed Not Available [facility] 03/29/2019 02:15:22 COVID-19 vaccine, vector-nr, [id number], PF, 0.5 mL 1 completed Kiersten Trevizo [facility] 03/16/2022 08:52:54 Influenza, high-dose, quadrivalent, PF 3 completed Natalie Beasley MA [facility] 12/15/2022 15:31:08 COVID-19, mRNA, LNP-S, PF, 30 mcg/0.3 mL dose 1 completed Serenity Dawson SAYDA [facility] 02/15/2024 09:41:50 COVID-19, mRNA, LNP-S, PF, 30 mcg/0.3 mL dose 2 completed [facility] 12/20/2021 09:03:22 Influenza, adjuvanted, trivalent, PF 9 completed [facility]ity Dawson [facility] 02/15/2024 09:41:50 Influenza, adjuvanted, trivalent, PF 8 completed [facility] 02/15/2024 09:41:50 zoster recombinant 8 completed [facility] 02/15/2024 09:41:50 Influenza, high-dose, quadrivalent, PF 2 completed [facility] 02/15/2024 09:41:50 Influenza, adjuvanted, quadrivalent, PF 1 completed Serenity OcasioyakelinSAYDA [facility] 02/15/2024 09:41:50 COVID-19, mRNA, LNP-S, PF, 30 mcg/0.3 mL dose, kareem-sucrose 2 completed [facility] Dawson [facility] 02/15/2024 09:41:50 COVID-19, mRNA, LNP-S, bivalent, PF, 30 mcg/0.3 mL dose 2 completed [facility] 02/15/2024 09:41:50 COVID-19, mRNA, LNP-S, PF, 50 mcg/0.5 mL 3 completed [facility] Dawson [facility] 02/15/2024 09:41:50 Tdap 3 completed [facility] 02/15/2024 09:41:50 Influenza, high-dose, trivalent, PF 4 completed [facility] 02/15/2024 09:41:50 Td (adult), 2 Lf tetanus toxoid, preservative free, adsorbed 1 completed Serenity Dawson SAYDA [facility] 02/15/2024 09:41:50 RSV, recombinant, protein subunit RSVpreF, adjuvant reconstituted, 0.5 mL, PF 4 completed Cindy Krueger RN [facility] 02/19/2024 14:46:58 Past Encounters Encounter ID Performer Location Encounter Start Date Encounter Closed Date Diagnosis/Indication Diagnosis SNOMED-CT Code Diagnosis ICD10 Code Diagnosis Note [id number] [facility], OFFICE [address] [place] [address] 07/05/2000 11:00:00 04/01/2008 02:02:29 [id number] [facility], OFFICE [address] [place] [address] 09/16/2001 15:01:04 04/01/2008 02:02:29 [id number] [facility], OFFICE [address] [place] [address] 09/26/2001 15:45:07 04/01/2008 02:02:29 [id number] [facility], OFFICE [address] [place] [address] 11/07/2001 08:58:15 04/01/2008 02:02:29 [id number] LAB - [facility] [address] [place] [address] 11/15/2001 08:34:23 04/01/2008 02:02:29 [id number] LAB - [facility] [address] [place] [address] 11/25/2001 11:57:48 04/01/2008 02:02:29 [id number] [facility], OFFICE [address] [place] [address] 02/21/2002 14:18:04 04/01/2008 02:02:29 [id number] [facility], OFFICE [address] [place] [address] 03/10/2002 12:48:11 04/01/2008 02:02:29 [id number] [facility], OFFICE [address] [place] [address] 03/16/2003 13:21:04 03/17/2003 08:55:05 [id number] LAB - [facility] [address] [place] [address] 03/20/2003 15:32:28 03/23/2003 09:39:13 [id number] LAB - [facility] [address] [place] [address] 03/26/2003 08:05:58 03/26/2003 08:19:26 [id number] Radiology , [facility] [address] [place] [address] 03/30/2003 10:22:51 03/30/2003 16:42:49 [id number] Radiology , [facility] [place] [address] 03/30/2003 00:00:00 04/01/2008 02:02:29 [id number] Radiology , [facility] [address] [place] [address] 03/30/2003 10:23:36 03/30/2003 16:39:52 [id number] Radiology , [facility] [address] [place] [address] 03/30/2003 00:00:00 04/01/2008 02:02:29 [id number] [facility], OFFICE [address] [place] [address] 02/25/2004 12:17:42 02/25/2004 15:53:43 [id number] [facility], OFFICE [address] [place] [address] 03/24/2004 14:25:02 03/25/2004 09:08:38 [id number] LAB - C [address] [place] [address] [place] [address] 04/04/2004 13:50:46 04/04/2004 13:51:03 [id number] [facility], OFFICE [address] [place] [address] 04/17/2004 10:32:00 04/18/2004 09:44:08 [id number] [facility], OFFICE [address] [place] [address] 07/07/2004 14:36:58 07/07/2004 17:50:05 [id number] LAB - [facility] [address] [place] [address] 07/07/2004 14:54:58 07/07/2004 14:55:30 [id number] LAB - [facility] [address] [place] [address] 07/07/2004 00:00:00 04/01/2008 02:02:29 [id number] [facility], OFFICE [address] [place] [address] 07/12/2004 10:37:04 07/12/2004 15:08:21 [id number] [facility], OFFICE [address] [place] [address] 08/17/2004 08:23:07 08/18/2004 08:27:48 [id number] [facility], OFFICE [address] [place] [address] 09/05/2004 08:34:15 09/06/2004 10:33:08 [id number] [facility], OFFICE [address] [place] [address] 10/18/2004 10:33:49 04/01/2008 02:02:29 [id number] [facility], OFFICE [address] [place] [address] 12/13/2004 15:26:29 04/01/2008 02:02:29 [id number] FP, [facility], OFFICE [address] [facility] [place] [address] 04/19/2005 10:31:11 04/19/2005 15:20:58 [id number] LAB - [facility] [address] [facility] [place] [address] 04/26/2005 12:32:05 04/26/2005 12:32:34 [id number] Radiology , [facility] 70 [facility] [place] [address] 06/19/2005 11:58:59 06/20/2005 08:58:35 [id number] Radiology , [facility] [address] [facility] [place] [address] 06/19/2005 00:00:00 04/01/2008 02:02:29 [id number] , [facility], OFFICE [address] [facility] [place] [address] 08/17/2005 11:02:59 04/01/2008 02:02:29 [id number] LAB - [facility] 70 [facility] [place] [address] 08/22/2005 07:21:10 08/22/2005 07:21:30 [id number] , [facility], OFFICE [address] [facility] [place] [address] 01/05/2006 12:46:32 01/05/2006 16:26:22 [id number] , [facility], OFFICE [address] [facility] [place] [address] 05/09/2006 10:46:23 05/09/2006 15:48:49 [id number] Radiology , [facility] 70 [facility] [place] [address] 05/09/2006 11:44:51 05/10/2006 09:14:36 [id number] Radiology , [facility] [place] [address] 05/09/2006 00:00:00 04/01/2008 02:02:29 [id number] LAB - [facility] 70 [facility] [place] [address] 05/09/2006 11:43:42 05/09/2006 11:43:57 [id number] FP, [facility], OFFICE [address] [facility] [place] [address] 08/01/2006 08:17:32 08/01/2006 13:52:07 [id number] FP, [facility], OFFICE [address] [place] [address] 08/08/2006 08:35:26 08/08/2006 16:10:09 [id number] Radiology , [facility] [address] [place] [address] 03/26/2007 14:36:03 03/27/2007 09:44:46 [id number] [facility], OFFICE [address] [place] [address] 03/26/2007 12:55:37 04/01/2008 02:02:29 [id number] Radiology , [facility] [address] [place] [address] 06/26/2007 14:37:15 06/27/2007 09:18:12 [id number] Radiology , [facility] [address] [place] [address] 06/26/2007 00:00:00 04/01/2008 02:02:29 [id number] [facility], OFFICE [address] [place] [address] 06/26/2007 15:17:10 04/01/2008 02:02:29 [id number] LAB - [facility] [address] [place] [address] 6 06/26/2007 15:57:41 06/26/2007 15:57:51 [id number] LAB - [address] [address] 07/08/2007 14:29:01 07/08/2007 14:29:14 [id number] [facility], OFFICE [address] [place] [address] 01/16/2008 11:10:50 04/01/2008 02:02:29 [id number] , [facility], OFFICE [address] [place] [address] 02/20/2008 11:11:00 04/01/2008 02:02:29 [id number] [facility], OFFICE [address] [place] [address] 06/15/2008 09:24:07 06/17/2008 12:05:07 [id number] [facility], OFFICE [address] [place] [address] 06/17/2008 09:22:53 06/19/2008 10:16:52 [id number] [facility], OFFICE [address] [facility] [place] [address] 11/26/2008 12:46:57 11/26/2008 14:18:45 [id number] [facility], OFFICE [address] [facility] [place] [address] 12/08/2008 09:20:47 12/11/2008 13:45:28 [id number] LAB - C [address] [address] 12/08/2008 10:21:01 12/08/2008 10:25:37 [id number] LAB - C [address] [place] [address] 12/10/2008 14:10:00 12/10/2008 14:10:33 [id number] LAB - [facility] [address] [place] [address] 12/14/2008 14:58:34 12/14/2008 14:59:16 [id number] [facility], OFFICE [address] [place] [address] 03/06/2009 15:26:04 03/09/2009 15:09:22 [id number] [facility], OFFICE [address] [facility] [place] [address] 04/12/2009 09:32:30 04/15/2009 14:50:28 [id number] [facility], OFFICE [address] [facility] [place] [address] 06/02/2009 14:43:32 06/04/2009 14:56:08 [id number] Radiology [facility] [address] [facility] [address] 06/02/2009 15:37:19 06/03/2009 11:53:32 [id number] Radiology , [facility] [address] [place] [address] 07/15/2009 10:14:09 07/16/2009 11:55:28 [id number] [facility], OFFICE [address] [facility] [address] 12/14/2009 09:51:42 12/17/2009 11:23:45 [id number] Radiology , [address] [address] 01/13/2010 10:46:50 01/18/2010 11:38:29 [id number] , [facility], OFFICE [address] [place] [address] 07/23/2010 10:21:37 07/26/2010 10:47:42 [id number] , [facility], OFFICE [address] [facility] [address] 02/01/2011 11:46:11 02/01/2011 13:04:58 [id number] , [facility], OFFICE [address] [facility] [address] 06/16/2011 09:48:32 06/16/2011 11:45:31 [id number] , [facility], OFFICE [address] [facility] [address] [facility] [address] 06/22/2011 14:21:11 06/22/2011 15:17:05 [id number] Radiology , [facility] [address] [facility] [address] [facility] [address] 06/23/2011 12:24:57 06/26/2011 13:40:17 [id number] , [facility], OFFICE [address] [facility] [address] 06/27/2011 10:40:00 06/28/2011 18:08:33 [id number] , [facility], OFFICE [address] [facility] [address] 06/27/2011 11:22:45 06/27/2011 12:05:49 [id number] Radiology , [facility] [address] [facility] [address] [facility] [address] 07/24/2011 09:48:02 07/25/2011 10:20:44 [id number] , [facility], OFFICE [address] [facility] [address] 07/25/2011 09:50:38 07/25/2011 10:25:29 [id number] Radiology , [facility] [address] [facility] [address] 08/17/2011 09:46:52 08/18/2011 09:18:33 [id number] Radiology , [facility] [address] [facility] [place] [address] 08/17/2011 09:47:09 08/18/2011 09:18:50 [id number] , [facility], OFFICE [address] [facility] [address] 08/25/2011 09:38:21 08/25/2011 10:20:23 [id number] , [facility], OFFICE [address] [facility] [place] [place] [address] 09/22/2011 09:10:25 09/22/2011 09:58:09 [id number] , [facility], OFFICE [address] [facility] [place] [address] 10/06/2011 09:25:34 10/06/2011 10:19:07 [id number] , [facility], OFFICE [address] [facility] [address] [facility] [address] 11/22/2011 07:07:09 11/23/2011 09:14:33 [id number] Rebecca West LPN , [facility], OFFICE [address] [facility] [address] 02/09/2012 09:47:49 02/09/2012 11:12:06 [id number] Amanda Winn Ms, PT Physical Therapy, [facility] [address] [facility] [address] 02/14/2012 15:30:52 02/15/2012 07:51:45 [id number] Amanda Winn Ms, PT Physical Therapy, [facility] [address] [facility] [address] [facility] [address] 02/20/2012 07:57:36 02/20/2012 13:30:53 [id number] Amanda Winn Ms, PT Physical Therapy, [facility] [address] [facility] [address] 02/21/2012 17:20:10 02/22/2012 08:01:14 [id number] Luma Cardona MD Radiology , [facility] [address] [facility] [address] 02/22/2012 11:24:00 02/23/2012 14:36:06 [id number] Amanda Winn Ms, PT Physical Therapy, [facility] [address] [facility] [address] 02/26/2012 14:54:04 02/26/2012 16:31:02 [id number] Amanda Winn Ms, PT Physical Therapy, [facility] [address] [facility] [address] 02/28/2012 14:30:45 02/28/2012 16:36:22 [id number] Benny Fairchild MD , [facility], OFFICE [address] [place] [address] on [facility] [place] [address] 03/08/2012 09:19:00 03/08/2012 10:21:45 [id number] Amanda Winn Ms, PT Physical Therapy, [address] [place] [facility] [address] 03/18/2012 13:37:09 03/18/2012 15:30:16 [id number] Amanda Winn Ms, PT Physical Therapy, [address] [place] [facility] [address] 03/25/2012 15:03:34 03/26/2012 08:42:01 [id number] Rebecca West LPN , [facility], OFFICE [address] [place] [address] [place] [facility] [address] 05/09/2012 11:46:54 05/09/2012 12:35:00 [id number] Konrad Luciano , [facility], OFFICE [address] [place] [address] [place] [facility] [address] 05/31/2012 08:55:01 05/31/2012 09:26:52 [id number] [facility], OFFICE [address] [place] [address] on [facility] [address] 10/18/2012 07:57:56 10/18/2012 08:24:03 [id number] Gonzalez Patino , [facility], OFFICE [address] [place] [address] on [facility] [place] [address] 12/06/2012 07:31:50 12/06/2012 14:20:45 Influenza vaccine needed [id number] , [facility], OFFICE [address] [place] [address] on [facility] [place] [address] 02/28/2013 09:54:15 02/28/2013 10:33:25 Adult health examination [id number] see Risk Assessment and Lifestyle Change Counseling section above Counseling [id number] Obesity [id number] discus sed diet and exercise Glucose le ravi outside reference range [id number] avoid simple sugars. Benign ess ential hypertension 6269870 Blood pressure at goal [id number] Sarita Garcia MA , [facility], OFFICE [address] [place] [address] 06/03/2013 10:53:00 06/03/2013 11:54:30 Benign essential hypertension 7844890 Blood pressure NOT at goal. increase med, f/u 1mo Atopic dermatitis [id number] Screening for malignant neoplasm of breast [id number] Gastroesop hageal reflux disease 156449196 classic sx last night, better after tums, EKG WNL, reassured [id number] Cassie Pino CMA(AAWY) , [facility], OFFICE [address] [place] [address] 07/03/2013 10:11:50 07/03/2013 10:46:08 Benign essential hypertension 4345438 Blood pressure NOT at goal. add med, f/u 1mo had some edema w/ amlodipine , will try diltia, f/u 1mo, sooner prn side effects. [id number] Sherie Renner , [facility], OFFICE [address] [place] [address] 08/05/2013 09:22:45 08/05/2013 10:03:06 Benign essential hypertension 7824163 Blood pressure at goal. cont meds, f/u 3mo but pt agrees to call if side effects worsen or not improving over time [id number] Benny Fairchild MD , [facility], OFFICE [address] [place] [address] 11/14/2013 08:54:04 11/14/2013 09:28:15 Dermatitis [id number] Benign ess ential hypertension 0771321 Blood pressure at goal Influenza vaccine needed [id number] 106 [facility] [id number] reassured benign. advised to call if sx develop [id number] Cindy Krueger RN , [facility], OFFICE [address] [place] [address] 11/27/2013 11:22:52 11/27/2013 12:00:32 Benign essential hypertension 4823364 Blood pressure NOT at goal. inc dose, f/u 2mo, call sooner if BP not going to goal [id number] Cindy Krueger RN , [facility], OFFICE [address] [place] [address] 01/26/2014 14:16:50 01/26/2014 14:53:57 Herpes labialis [id number] Cindy Krueger RN , [facility], OFFICE [address] [place] [id number] 03/03/2014 10:39:51 03/03/2014 13:27:58 Herpes labialis 5000826 advised to take the acute rx treatment today, then start suppressiv e therapy. see below for more advice. call if not improving or if worsening [id number] Cindy Krueger RN , [facility], OFFICE [address] [place] [address] 03/25/2014 10:36:54 03/25/2014 16:08:04 Epigastric pain 61353338 LFTs and CBC WNL Herpes labialis 3651842 due to lowered GFR will have her hold on antiviral po meds and use topical instead for sx control Acute kidney injury 44875304 likely due to Valtrex, so advised to cont to hold med, cont good hydration, avoid NSAIDs. pt drinking and urinating well so recheck lab in AM f/u in office 2days but call immediatel y if malaise, n-v, dec'd urination or any other new or worsening sx [id number] , [facility], OFFICE [address] [place] [address] [phone] 6 03/27/2014 09:07:47 03/27/2014 09:45:26 Acute kidney injury 66530084 creatinine normalized yday after being off Valtrex for 3d. cont hydration. rehceck BMP 1week Benign ess ential hypertension 9916078 Blood pressure NOT at goal. but has been in pain, home BPs improving as pain improves, f/u 3d to ensure cont'd improvemen t Herpes labialis 1795140 rash now fully crusted so stop topical acyclovir. Start daily suppressiv e dosing, check BMP 1week, but call if fatigue, malaise, n-v [id number] Cindy Krueger RN FP, [facility], OFFICE [address] [place] [address] [phone] 6 03/30/2014 08:29:41 03/30/2014 09:05:47 Adult health examination 538294464 see Risk Assessment and Lifestyle Change Counseling section above Counseling [id number] Benny Fairchild MD FP, [facility], OFFICE [address] [place] [address] [phone] 6 06/24/2014 08:55:42 06/24/2014 09:49:21 Benign essential hypertension 1725151 Blood pressure at goal but running borderline to high at home, so will inc med dose, f/u 3mo, sooner if side effects or BP not improving [id number] Cindy Krueger RN FP, [facility], OFFICE [address] [place] [address] [phone] 6 08/19/2014 13:09:29 08/19/2014 13:44:34 Benign essential hypertension 0322443 Blood pressure at goal. advised due for BMP next month Obesity 464169443 discus sed diet and exercise. note sent to wt loss SMA leader to contact pt [id number] HEATHER Estrada, [facility], OFFICE [address] [place] [address] [phone] 6 10/27/2014 15:30:19 10/29/2014 12:19:26 Obesity 557338076 [id number] CHELY [facility], OFFICE [address] [place] [address] 80618-790 6 11/03/2014 15:38:28 11/05/2014 08:57:42 Obesity 053738141 [id number] HEATHER Estrada, [facility], OFFICE [address] [place] [address] 02484-238 6 11/10/2014 15:32:40 11/10/2014 16:52:29 Obesity 364619216 Influenza vaccine needed 4442988979 [id number] HEATHER Estrada, [facility], OFFICE [address] [place] [address] 64605-811 6 11/24/2014 15:36:17 11/24/2014 16:05:41 Obesity 429622682 [id number] MD CHELY Gary, [facility], OFFICE [address] [place] [address] 02688-989 6 03/31/2015 08:32:30 03/31/2015 09:25:38 Adult health examination 145184826 Z00.00 see Risk Assessment and Lifestyle Change Counseling section above Counseling 608249183 Z71 .9 Active or passive immunization 673919370 Z23 Low back pain 030238834 M54.5 no red flags, chronic off and on. Offered PT, she declines for now as she feels she manages well w/ her own exercises and stretches. Advised to call if worsening or not improving [id number] Nabeel Martin MD FP, [facility], OFFICE [address] [place] [address] [phone] 6 09/06/2015 16:47:10 09/06/2015 17:46:21 Edema of lower extremity 998184276 R60.0 [id number] MD CHELY Gary, [facility], OFFICE [address] [place] [address] 84325-728 6 09/29/2015 09:40:27 09/29/2015 11:06:53 Benign essential hypertension 5646096 I10 see plan below Edema 075945386 R60.9 resolved. see below Hyperkalemia 87019202 E8 7.5 will cut back on K. will recheck K today at different lab to r/o lab error [id number] Lacey Espnial NP FP, [facility], OFFICE [address] [place] [address] [phone] 6 10/19/2015 12:02:49 10/19/2015 12:50:54 Benign essential hypertension 5564800 I10 Blood pressure at goal on no meds. continue to monitor Edema of l ower extremity 509391342 R60.0 [id number] HEATHER Hidalgo, [facility], OFFICE [address] [place] [address] [phone] 6 11/02/2015 11:24:32 11/02/2015 11:55:04 Benign essential hypertension 9003584 I10 Blood pressure at goal Edema of l ower extremity 784200051 R60.0 Will try using the lasix daily. FU 3-4 weeks. 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 - Wear compressio n stocking daily, especially in the morning and when being active- Elevate legs when at rest- Follow a low salt diet Obesity 719378345 E66.9 - Continue with exercise and weight loss Impaired f asting glycemia 065810607 R73.01 - Repeat labs before next appointmen t- Recommend exercise and weight loss [id number] Pricilla Rojas , [facility], OFFICE [address] [place] [address] [phone] 6 03/14/2016 10:37:15 03/14/2016 11:49:50 Benign essential hypertension 6529325 I10 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 [id number] Mert Yin MD , [facility], OFFICE [address] [place] [address] [phone] 6 06/01/2016 11:30:07 06/05/2016 08:25:43 Bilateral cataracts 53685207 H26.9 Pre-surger y evaluation 943567247 Z01.920 [id number] Mert Yin MD , [facility], OFFICE [address] [place] [address] [phone] 6 09/19/2016 09:44:34 09/19/2016 11:20:11 Adult health examination 709782832 Z00.00 see Risk Assessment and Lifestyle Change Counseling section above Counseling 543635765 Z71 .9 Blood gluc ose outside reference range 886799753 R73.09 Impacted cerumen 5819274 6 H61.22 [id number] Deana Kirby LPN , [facility], OFFICE [address] [place] [address] 94011-042 6 12/11/2016 07:24:39 12/11/2016 10:47:22 Active or passive immunization 295887937 Z23 [id number] Mert Yin MD , [facility], OFFICE [address] [place] [address] [phone] 6 04/26/2017 09:12:09 04/26/2017 10:15:57 Vertigo 062769853 R42 Cough 10322712 R05 Acute uppe r respiratory infection 64621654 J06.9 [id number] Mert Yin MD , [facility], OFFICE [address] [place] [address] 72161-434 6 05/04/2017 09:29:57 05/04/2017 10:38:04 Vertigo 941378175 R42 Ankle pain 630458271 M25 .576 [id number] Nicki Rios , [facility], OFFICE [address] [place] [address] 24837-019 6 06/14/2017 11:52:07 06/20/2017 08:38:34 Vertigo 677830206 R42 [id number] Crow Carty PA-C , [facility], OFFICE [address] [place] [address] 54501-776 6 06/28/2017 08:12:44 06/28/2017 12:13:52 Atrial fibrillation 96952829 I48.91 New-onset, currently tachycardi c, causing significan t dyspnea.I instructed Yina to go immediatel y to the ED for further management . She expresses understand ing and agreement and her will drive her directly there.Expe ct called to ED staff at [facility]. [id number] Lacey Espinal NP , [facility], OFFICE [address] [place] [address] 04430-080 6 07/17/2017 09:48:42 07/17/2017 11:40:23 Physical deconditioning 1840490110 9102 R68.89 Edema of t he upper extremity 913844347 R60.0 Acute deep venous thrombosis of axillary vein 7003448139 84319 I82.A19 Left - assoc with recent pacemaker and possible injury from blood pressure cuff while at hospital. Atrial fibrillation 4943 6004 I48.91 Pericardial effusion 373 969660 I31.3 bleed treated at [facility]. [id number] Kavitha Mayers RN BSN [facility], OFFICE [address] [place] [address] 71027-432 6 07/19/2017 11:10:05 07/19/2017 14:17:40 Atrial fibrillation 47246865 I48.91 [id number] [facility] [address] [place] [address] 44703-770 6 07/23/2017 11:15:03 07/23/2017 11:30:06 Atrial fibrillation 51927921 I48.91 [id number] Humera Lott [facility], OFFICE [address] [place] [address] 16409-555 6 07/24/2017 11:19:45 07/24/2017 13:50:43 Atrial fibrillation 22521282 I48.91 [id number] Humera MO [facility], OFFICE [address] [place] [address] [phone] 6 07/25/2017 11:34:20 07/25/2017 12:52:43 Atrial fibrillation 51382072 I48.91 [id number] Humera Lott [facility], OFFICE [address] [place] [address] 73671-460 6 07/27/2017 13:31:30 07/27/2017 14:54:41 Atrial fibrillation 42286880 I48.91 [id number] Nicole Brewer RN, BSN , [facility], OFFICE [address] [place] [address] 12478-220 6 07/28/2017 11:30:04 07/28/2017 12:24:11 Atrial fibrillation 40195853 I48.91 [id number] Humera Lott [facility], OFFICE [address] [place] [address] 52401-791 6 07/30/2017 09:08:16 07/30/2017 14:02:50 Atrial fibrillation 02189959 I48.91 [id number] JEWEL Bray , [facility], OFFICE [address] [place] [address] 56068-732 6 07/31/2017 10:09:19 07/31/2017 10:57:06 Gagging 134994064 R19.8 Dyspnea on exertion 6084 5006 R06.09 Edema of l ower extremity 648000990 R60.0 Bilateral pleural effusion 127658512 J90 Atrial fibrillation 4943 6004 I48.91 [id number] Humera MO, [facility], OFFICE [address] [place] [address] 85838-568 6 08/01/2017 10:39:31 08/01/2017 12:46:33 Atrial fibrillation 63152958 I48.91 [id number] Humera MO [facility], OFFICE [address] [place] [address] 73889-284 6 08/08/2017 11:30:43 08/08/2017 14:37:00 Atrial fibrillation 78358871 I48.91 [id number] MD CHELY Pinto, [facility], OFFICE [address] [place] [address] 46018-198 6 08/13/2017 09:08:24 08/13/2017 11:03:03 Atrial fibrillation 90391678 I48.91 Sick sinus syndrome 3608 3008 I49.5 [id number] MD CHELY Pinto, [facility], OFFICE [address] [place] [address] 64660-586 6 09/20/2017 09:38:55 09/20/2017 10:58:04 Adult health examination 526782537 Z00.00 see Risk Assessment and Lifestyle Change Counseling section above Counseling 406512340 Z71 .9 Depression screening 171 300868 Z13.89 depression screening tool administer ed, entered into emr, scored and discussed, time greater than 7.5 minutes Active or passive immunization 171848514 Z23 Benign ess ential hypertension 5124964 I10 Degenerati ve joint disease involving multiple joints 217352357 M15.9 Peripheral venous insufficiency 05649289 I87.2 Sick sinus syndrome 3608 3008 I49.5 Atrial fibrillation 4943 6004 I48.91 [id number] RENETTA Callaway, [facility], OFFICE [address] [place] [address] 34543-882 6 10/30/2017 10:33:24 10/30/2017 11:59:18 Atrial fibrillation 54960554 I48.91 [id number] JEWEL Bray , [facility], OFFICE [address] [place] [address] 25776-727 6 11/05/2017 13:49:33 11/05/2017 15:17:03 Atrial fibrillation 63314557 I48.91 [id number] Mert Yin MD , [facility], OFFICE [address] [place] [address] 94633-332 6 12/20/2017 08:57:03 12/20/2017 09:43:58 Atrial fibrillation 99601807 I48.91 Obstructiv e sleep apnea syndrome 82375868 G47.33 Sick sinus syndrome 3608 3008 I49.5 Benign ess ential hypertension 0493867 I10 Eruption 274986272 R21 [id number] Mariana Og LPN , [facility], OFFICE [address] [place] [address] [id number] 6 01/30/2018 10:38:59 01/30/2018 11:55:31 Atrial fibrillation 28718819 I48.91 [id number] Mert Yin MD , [facility], OFFICE [address] [place] [address] 45978-997 6 02/28/2018 11:37:50 02/28/2018 14:47:58 Acute maxillary sinusitis 15031971 J01.00 Acute uppe r respiratory infection 09758088 J06.9 [id number] Mert Yin MD , [facility], OFFICE [address] [place] [address] 17646-322 6 06/11/2018 10:10:05 06/11/2018 11:09:56 Obstructive sleep apnea syndrome 85044398 G47.33 Degenerati ve joint disease involving multiple joints 028719706 M15.9 Atrial fibrillation 4943 6004 I48.91 Impaired f asting glycemia 893654579 R73.01 Sick sinus syndrome 3608 3008 I49.5 [id number] MD CHELY Pinto, [facility], OFFICE [address] [place] [address] 77102-783 6 08/08/2018 15:22:26 08/08/2018 15:54:39 Sick sinus syndrome 26854047 I49.5 Peripheral venous insufficiency 03395254 I87.2 [id number] , [facility], OFFICE [address] [place] [address] 53224-873 6 08/15/2018 12:04:22 08/15/2018 14:24:44 Peripheral venous insufficiency 30053855 I87.2 [id number] Mert Yin MD , [facility], OFFICE [address] [place] [address] 65819-339 6 12/17/2018 10:55:12 12/18/2018 13:49:12 Adult health examination 016560892 Z00.00 see Risk Assessment and Lifestyle Change Counseling section above Counseling 462191627 Z71 .9 Depression screening 171 068360 Z13.89 depression screening tool administer ed, entered into emr, scored and discussed, time greater than 7.5 minutes Obstructiv e sleep apnea syndrome 51539030 G47.33 Benign ess ential hypertension 6120498 I10 Degenerati ve joint disease involving multiple joints 863068249 M15.9 Obesity 285306288 E66.9 Atrial fibrillation 4943 6004 I48.91 Peripheral venous insufficiency 47193415 I87.2 Sick sinus syndrome 3608 3008 I49.5 Mixed hyperlipidemia 267 339314 E78.2 [id number] Mert Yin MD , [facility], OFFICE [address] [place] [address] 35735-355 6 02/03/2019 12:00:04 02/03/2019 14:38:24 Morbid obesity 575135814 E66.01 Acquired p tosis of eyelid 957568326 H02.409 Pre-surger y evaluation 355779890 Z01.818 Benign ess ential hypertension 4059704 I10 Atrial fibrillation 4943 6004 I48.91 Obstructiv e sleep apnea syndrome 46350581 G47.33 Peripheral venous insufficiency 09126607 I87.2 Sick sinus syndrome 3608 3008 I49.5 [id number] Mert Yin MD , [facility], OFFICE [address] [place] [address] 45861-269 6 02/10/2019 09:06:59 02/11/2019 15:37:01 Atrial fibrillation 82674462 I48.91 Peripheral venous insufficiency 08398192 I87.2 Pre-surger y evaluation 709399070 Z01.359 [id number] Mert Yin MD , [facility], OFFICE [address] [place] [address] 31191-069 6 03/07/2019 14:23:39 03/07/2019 15:55:01 History of repair of eyelid 6789900965 9107 Z98.890 Diarrhea 20068092 R19.7 [id number] Mert Yin MD , [facility], OFFICE [address] [place] [address] 71720-746 6 04/10/2019 11:44:06 04/10/2019 13:15:16 Atrial fibrillation 92402938 I48.91 Laceration of lower leg 564836220 S81.812A [id number] Mert Yin MD , [facility], OFFICE [address] [place] [address] 71418-455 6 04/17/2019 07:30:05 04/17/2019 10:02:49 Removal of suture 89731892 Z48.02 Laceration of lower leg 365736308 S81.812D [id number] Rebecca Moore , [facility], OFFICE [address] [place] [address] 66475-111 6 05/02/2019 11:21:23 05/02/2019 13:58:20 Open wound of lower leg 225194275 S81.802D [id number] Mert Yin MD , [facility], OFFICE [address] [place] [address] 18176-446 6 05/15/2019 13:17:26 05/15/2019 15:39:34 Transient cerebral ischemia 340039379 G45.19 May 2019 Open wound of lower leg 191916044 S81.802D Atrial fibrillation 4943 6004 I48.91 Peripheral venous insufficiency 22725297 I87.2 [id number] Mert Yin MD , [facility], OFFICE [address] [place] [address] 36546-741 6 06/19/2019 08:26:45 06/20/2019 13:48:15 Atrial fibrillation 27738080 I48.91 Benign ess ential hypertension 7969771 I10 Peripheral venous insufficiency 25367553 I87.2 Abrasion o f skin of lower limb 380844274 S80.812D [id number] Mert Yin MD , [facility], OFFICE [address] [place] [address] 24012-897 6 08/11/2019 15:19:35 08/12/2019 14:23:26 Open wound of lower leg 117444909 S81.802D Edema of l ower extremity 771928717 R60.0 [id number] Mert Yin MD , [facility], OFFICE [address] [place] [address] 03618-663 6 08/14/2019 07:56:46 08/14/2019 09:27:28 Edema of lower extremity 825530289 R60.0 Open wound of lower leg 589021253 S81.802D [id number] Mert Yin MD , [facility], OFFICE [address] [place] [address] 54002-501 6 08/18/2019 15:23:21 08/18/2019 15:40:02 Edema of lower extremity 663551199 R60.0 [id number] Mert Yin MD , [facility], OFFICE [address] [place] [address] 67583-178 6 11/25/2019 08:57:16 11/27/2019 11:31:44 Atrial fibrillation 22100798 I48.91 Essential hypertension 76086953 I10 Peripheral venous insufficiency 19120409 I87.2 [id number] Mert Yin MD , [facility], OFFICE [address] [place] [address] 63161-409 6 06/21/2020 14:59:15 06/23/2020 17:26:13 Adult health examination 143063678 Z00.00 see Risk Assessment and Lifestyle Change Counseling section above Counseling 784875418 Z71 .9 including cardivascu lar risk reduction counseling Depression screening 171 256779 Z13.31 depression screening tool administer ed, entered into emr, scored and discussed, time greater than 7.5 minutes Screening for alcohol abuse 067863694 Z13.39 Atrial fibrillation 4943 6004 I48.91 Degenerati ve joint disease involving multiple joints 509701926 M15.9 Insomnia 742454087 G47.0 0 Obstructiv e sleep apnea syndrome 77356281 G47.33 Postmenopausal state 764 30886 Z78.0 Active or passive immunization 901203997 Z23 Closed fra cture of shaft of fibula 64744359 S82.402D [id number] Hope Fleming NP , [facility], OFFICE [address] [place] [address] 49091-897 6 08/27/2020 10:46:50 08/31/2020 10:48:01 Low back pain 477283107 M54.5 managed by [facility] Osteoarthritis of hip 23 2856776 M16.9 Right. [facility] for hip replacemen t consult. she would like a second opinion. referral sent. contact info given. tylenol #3 as needed. this can make you drowsy. not to take before driving. take extra care when walking. tylenol max 3000mg/day [id number] Mert Yin MD , [facility], OFFICE [address] [place] [address] 25019-321 6 12/20/2020 10:34:05 12/20/2020 11:41:59 Essential hypertension 17072367 I10 Peripheral venous insufficiency 99153022 I87.2 Atrial fibrillation 4943 6004 I48.91 Osteoarthritis of hip 23 9062375 M16.11 Obstructiv e sleep apnea syndrome 76957010 G47.33 Prediabetes 362059814 R7 3.03 [id number] Mert Yin MD , [facility], OFFICE [address] [place] [address] 99072-191 6 12/24/2020 10:25:18 12/28/2020 10:30:20 Morbid obesity 420997858 E66.01 Osteoarthr itis of right hip joint 0990697272 35012 M16.11 Atrial fibrillation 4943 6004 I48.91 Degenerati ve joint disease involving multiple joints 764375323 M15.9 Impaired f asting glycemia 080439489 R73.01 Obstructiv e sleep apnea syndrome 41083565 G47.33 Peripheral venous insufficiency 85166431 I87.2 Pre-surger y evaluation 146461254 Z01.197 [id number] Mert Yin MD , [facility], OFFICE [address] [place] [address] 38245-193 6 02/08/2021 10:46:30 02/17/2021 14:03:47 Essential hypertension 78845990 I10 History of total replacement of right hip joint 8327472893 46760 Z96.653 [id number] Mert Yin MD , [facility], OFFICE [address] [place] [address] 65205-636 6 06/23/2021 09:24:06 06/23/2021 10:30:50 Atrial fibrillation 74794654 I48.91 Adult heal th examination 651984537 Z00.00 see Risk Assessment and Lifestyle Change Counseling section above Counseling 994452384 Z71 .9 including cardiovasc ular risk reduction counseling Depression screening 171 202038 Z13.31 depression screening tool administer ed, entered into emr, scored and discussed, time greater than 7.5 minutes Screening for alcohol abuse 651804760 Z13.39 Essential hypertension 07748236 I10 dx: 2013 Obstructiv e sleep apnea syndrome 15978481 G47.33 Peripheral venous insufficiency 44160376 I87.2 Sick sinus syndrome 3608 3008 I49.5 Prediabetes 009290888 R7 3.03 Morbid obesity 575906322 E66.01 [id number] Mert Yin MD , [facility], OFFICE [address] [place] [address] 31528-249 6 07/11/2021 08:35:21 07/29/2021 10:09:51 Peripheral venous insufficiency 25540235 I87.2 Skin lesion 71319608 L98 .9 Chronic ki dney disease stage 3 159771789 N18.30 [id number] Mert Yin MD , [facility], OFFICE [address] [place] [address] 48865-660 6 08/09/2021 11:37:53 08/15/2021 09:29:04 Active or passive immunization 927072627 Z23 Advised on the Shingles vacc 08/09/21 as Impaired f asting glycemia 860247285 R73.01 Peripheral venous insufficiency 91274298 I87.2 Acute urticaria 76141670 9 L50.9 Obesity 498939273 E66.9 Initial integrated nutrition visit (after [facility] phone call w/ pt 07/27). She's frustrated [...] for further f/u. Obesity code used. Prediabetes 912307552 R7 3.03 [id number] Mert Yin MD FP, [facility], OFFICE [address] [place] [address] 68696-468 6 09/05/2021 11:33:25 09/05/2021 12:09:13 Peripheral venous insufficiency 95182559 I87.2 Pain in lower limb 22244 006 M79.606 Chronic back pain 429149 002 G89.29 [id number] MD CHELY Pinto, [facility], OFFICE [address] [place] [address] 01866-436 6 12/20/2021 08:49:08 12/20/2021 09:34:32 Atrial fibrillation 66234306 I48.91 Essential hypertension 15769609 I10 dx: 2012 Active or passive immunization 969548704 Z23 Advised on the Shingles vacc 08/09/21 as Pt got Flu at [facility] 12/20/21 aS Peripheral venous insufficiency 30040733 I87.2 [id number] Kavitha Mayers RN BSN , [facility], OFFICE [address] [place] [address] 67611-921 6 12/26/2021 09:36:24 02/06/2022 14:31:16 [id number] MD CHELY Pinto, [facility], OFFICE [address] [place] [address] 48712-758 6 12/26/2021 15:09:46 12/27/2021 11:41:13 Pain of right shoulder joint 2247624584 3163162 M25.511 Chronic pain 43305565 G8 9.29 Essential hypertension 38433522 I10 dx: 2012 [id number] Mert Yin MD FP, [facility], OFFICE [address] [place] [address] [place] [address]-428 6 03/16/2022 08:52:18 03/16/2022 09:39:30 Atrial fibrillation 57878128 I48.91 Essential hypertension 39343711 I10 dx: 2012 Morbid obesity 497344645 E66.01 HTN with BMI of 38 Peripheral venous insufficiency 60658915 I87.2 Prediabetes 937386234 R7 3.03 [id number] Mert Yin MD FP, [facility], OFFICE [address] [place] [address] 22189-983 6 08/10/2022 08:57:36 08/10/2022 13:56:08 Atrial fibrillation 89193989 I48.91 Essential hypertension 17733503 I10 dx: 2012 Peripheral venous insufficiency 23351237 I87.2 Degenerati ve joint disease involving multiple joints 931010956 M15.9 Open wound of lower leg 308814253 S81.802D [id number] SAYDA Najera, [facility], OFFICE [address] [place] [address] 46774-061 6 12/15/2022 15:29:14 12/15/2022 19:50:07 Active or passive immunization 663695045 Z23 [id number] Susan Barber RN FP, [facility], OFFICE [address] [place] [address] 94909-358 6 12/29/2022 10:37:29 01/01/2023 13:02:01 Essential hypertension 74358952 I10 dx: 2012 [id number] Mert Yin MD FP, [facility], OFFICE [address] [place] [address] 61313-541 6 01/26/2023 11:34:42 01/29/2023 07:49:14 Atrial fibrillation 17329555 I48.91 Essential hypertension 07420646 I10 dx: 2012 Peripheral venous insufficiency 91527303 I87.2 Hypothyroidism 73607949 E03.9 DX Jan 2023 Chronic ki dney disease stage 3 878592821 N18.30 Prediabetes 191594824 R7 3.03 [id number] Renetta MO, [facility], OFFICE [address] [place] [address] 57670-625 6 02/13/2023 08:22:57 02/13/2023 09:29:57 Adult health examination 716166196 Z00.00 see Risk Assessment and Lifestyle Change Counseling section above Depression screening 171 084928 Z13.31 depression screening tool administer ed Screening for alcohol abuse 279701710 Z13.39 Alcohol use screening tool administer ed Atrial fibrillation 4943 6004 I48.91 Chronic ki dney disease stage 3 731882208 N18.30 Hypothyroidism 77133427 E03.9 DX Jan 2023 -amiodaron e use Insomnia 853229565 G47.0 0 Lesion of skin of face 7101291869 06 L98.9 Senile purpura 59305711 D69.2 Prediabetes 828245212 R7 3.03 dx: Dec 2020 Degenerati ve joint disease involving multiple joints 682161142 M15.9 Essential hypertension 43416401 I10 dx: 2012 Morbid obesity 258748605 E66.01 HTN with BMI of 38 Obstructiv e sleep apnea syndrome 03797506 G47.33 Peripheral venous insufficiency 69171236 I87.2 Sick sinus syndrome 3608 3008 I49.5 Hypercoagu lability state 67582918 D68.69 atrial fib [id number] Mert Yin MD , [facility], OFFICE [address] [place] [address] 6 08/16/2023 09:17:06 08/16/2023 10:32:27 Atrial fibrillation 74959732 I48.91 tolerating Eliquis, no concerns Hypothyroidism 46253968 E03.9 DX Jan 2023 -amiodaron e useunable to tolerate levothyrox ine and stopped it a while back, normal TSHwill recheck in 6 mos. Prediabetes 791036706 R7 3.03 dx: Dectable , reminded of decreasing simple carbohydra sunil, continue exercise and repeat in 6 mos Essential hypertension [id number] I10 dx: 2012HTN - at goal of less than 130/80 per the AHA guidelines . Continue meds and f/u in 6 mos. Discussed labs. Continue low salt diet of less than 1500 mg of sodium per day. The [place] [employer] n (AHA) recommends 30 minutes of moderate physical activity 5 days a week. A Mediterran wibler type of diet and a plant based diet is recommende d, review the website: Oldways[employer]. org. The DASH diet is also recommende d. * Review this website: [email or web address]/al l-about-go od-and-jasbir ap for healthy inexpensiv e meals. Senile purpura [id number] D69.2 stable Morbid obesity 204336596 E66.01 HTN with BMI of 38 Laboratory test result abnormal [id number] R89.9 elevated Hgb and Hct, will recheck in 3 months Heart fail ure with normal ejection fraction [id number] I50.[address] Carlisle, cardiology , followed regularlyo n Jardiance and diuretics and tolerating well [id number] JOSÉ MIGUEL CORMIER , [facility], OFFICE [address] [place] [phone] 01/16/2024 14:47:12 01/16/2024 17:35:10 Dysuria 98401008 R30.0 Patient with urinary symptoms.H istory and exam and urinalysis consistent with UTI.No symptoms of pyelonephr itis.Discu ssed supportive and preventive measures.P atient instructed to follow up if not better or with new symptoms. Urinary tr act infectious disease [id number] N39.0 Start Bactrim as aboveNorma l GFRRTO PRN symptoms persist or worsenCont inue hydrating, hygeine measures like wiping front to back [id number] eMrt Yin MD , [facility], OFFICE [address] [place] [address] 02/15/2024 09:23:21 02/15/2024 10:30:08 Atrial fibrillation 03989943 I48.91 tolerating Eliquis, no concerns Prediabetes 641029340 R7 3.03 dx: Dectable , reminded of decreasing simple carbohydra sunil, continue exercisere check today Active or passive immunization [id number] Z23 Shingles: Advised on the 08/09/21 as Advised 02/15/24 as Flu: [facility] 12/20/21 as Completed 02/15/24 a Dry eyes [id number] H04.1 23 Reports of persistent tearing in one eye. Currently using artificial tear gel once daily.-Con tinue artificial tear gel once daily. Chronic ki dney disease stage 3 501512003 N18.30 consistent GFR at 55-59 - no change Essential hypertension 96538246 I10 dx: 2013HTN - at goal of less than 130/80 per the AHA guidelines . Continue meds and f/u in 6 mos. Discussed labs. Continue low salt diet of less than 1500 mg of sodium per day. The [place] [employer] n (AHA) recommends 30 minutes of moderate physical activity 5 days a week. A Mediterran wilber type of diet and a plant based diet is recommende d, review the website: [employer]. The DASH diet is also recommende d. * Review this website: [email or web address]/al l-about-go od-and-jasbir ap for healthy inexpensiv e meals. Hypercoagu lability state 14042696 D68.69 atrial fib Heart fail ure with normal ejection fraction 953840710 I50.[address] Carlisle, cardiology , followed regularlyE liquis, Jardiance, Losartan, Metoprolol , and Torsemide. Noted previous UTI with Jardiance use.-Tita nue current medication s. Monitor for recurrent UTIs. [id number] Mert Yin MD , [facility], OFFICE [address] [place] [phone] 04/25/2024 07:41:06 04/25/2024 08:46:58 Lymphedema of lower extremity 655531968 I89.0 Chronic fluid retention in legs with upper body involvemen t. Compressio n stockings insufficie nt.- Contact visiting nurse or Sagar from [place] visiting [facility] to confirm pneumatic sequential lymphedema pump type. (message sent to nurse triage to confirm)- Consider ordering pump from [employer], ensure proper measuremen t for fit. Heart fail ure with normal ejection fraction [id number] I50.30 - Ensure attendance at follow-up appointmen t with Dr. Carlisle on May 08.reche ck BMP today because of torsemide use. Atrial fibrillation 2023 6004 I48.91 tolerating Eliquis, no concerns Neuropathy 169859501 G62 .9 Chronic nerve pain, gabapentin 100 mg once daily ineffectiv e.- Increase gabapentin to 300 mg at night for two nights, then 300 mg twice daily if effective, follow up in 1 month.call or send a message on the portal if with any medication concerns. Peripheral venous insufficiency 44831402 I87.2 Stasis dermatitis 617172 05 I87.2 cellulitis resolved, skin changes due to chronic venous insufficie ncy Goals Section Goal Description Progress Status Start Date LastModified by Organization Details LastModified Time Fluid Balance Management Exhibits no signs or symptoms related to fluid imbalance None active 2024 Komal Scott RN Information not available 04/15/2024 22:03:42 Medication Regimen Follows medication regimen as per care team recommendati on(s) None active 2024 Komal Scott RN Information not available 04/15/2024 22:03:42 Chronic Condition Action Plan Follows action plan for any worsening of chronic condition(s) as per care team recommendati on(s) None active 2024 Komal Scott RN Information not available 04/15/2024 22:03:42 Blood Pressure Maintains blood pressure goal as defined by care team None active 2024 Komal Scott RN Information not available 04/15/2024 22:03:43 Diet Adherence Follows prescribed or recommended diet None active 2024 Komal Scott RN Information not available 04/15/2024 22:03:43 Health Concerns Section Related Observation LastModified by Organization Detai ls LastModified Time None Recorded Concern Status LastModified by Organization Details LastModified Time acute heart failure Active Komal Scott RN Not Av ailable 04/15/2024 21:54:21 Atrial fibrillation Active Komal Scott RN Not Av ailable 04/15/2024 21:55:15 Advance Directives Directive None Recorded Payers Encounter Date Sequence Insurance Name Policy Number Policy Hoang Covered Member ID Hoang Member ID Guarantor Name 02/13/2023 1 [place] [employer] Yina M Pluta [id number] Yina M Pluta 02/13/2023 2 [place] [id number] Yina M Pluta [id number] Yina M Pluta 08/16/2023 1 [place] Yina M Pluta [id number] Yina M Pluta 08/16/2023 2 [place] [id number] Yina M Pluta [id number] Yina M Pluta 01/16/2024 1 [place] Yina M Pluta [id number] Yina M Pluta 01/16/2024 2 [place] [id number] Yina M Pluta [id number] Yina M Pluta 02/15/2024 1 [place] Yina M Pluta [id number] Yina M Pluta 02/15/2024 2 [place] [id number] Yina M Pluta [id number] Yina M Pluta 04/25/2024 1 [place] Yina M Pluta [id number] 4 Yina M Pluta 04/25/2024 2 [place] [id number] Yina M Pluta [id number] Yina M Pluta Notes Date Note Type Note Provider Name and Address Organization Details Recorded Time 3 text/html Physical Exam/FemaleReported bypatient.PHAPatient is here [...] confident and 1 being very low confidence [facility] Yin MD [address] [place] [address], [phone], [facility] 02/14/2023 10:06:38 4 text/html Patient presents for [...] to manage his medications Mert Yin MD [address] [place] [address], [phone], [facility] 08/19/2023 13:23:49 4 text/html Urinary FrequencyReported bypatient.SymptomsSymptom s began 7 days ago;Urinary frequency;Burning;Urgency ; No fever; No chills; No back pain; No nausea; No vomiting; No frequent previous UTI No HX UTIs.No HX kidney stones, pyelonephritis.Recent diarrhea has since resolved. JOSÉ MIGUEL CORMIER [address] [place] [address], [phone], [facility] 01/16/2024 16:47:37 4 text/html Patient informed and [...] is also under the care of a hot plate plywood press operator due to her heart condition and pacemaker. She reports a recent remote device check and has a follow-up appointment scheduled for April. She requests that her current medical information be sent to her hot plate plywood press operator.UTI last month, resolved. Home blood pressures: noTaking [...] to manage his medications Mert Yin MD [address] [place] [address], [phone], [facility] 02/16/2024 09:55:05 5 text/html Patient informed and consents to use of AI assisted recording to improve documentation of visit.Word substitution may have occurred and may have gone unnoticed and uncorrected. CM f/u tc after [facility] [place] hosp stay 04/10-04/14/24 Sent to ER from Dr. Carlisle's office (hot plate plywood press operator). dx: CHF PMHX: persistent AFib on Eliquis, SSS s/p pacemaker in place. ECHO 55%.. home on torsemide 10mg qd . Issue with persistent Afib- started Amiodarone . Cardiology to see on 05/08 for discussion on possible cardioversion. Also Left leg cellulitis completed 5 day course of Keflex. c/o bilt LE pain to touch & feet. ? peripheral neuropathy- started on Gabapentin 100 mg qd. PCP to titrate. S/w pt feels weak . s/w with JEWEL Keith from [facility] admitting pt today. Pt in no acute distress. Med reconciliation done. VNA assisting with wt, bp monitoring & med management. Has PCP f/u 04/25. Pt agreeable to [facility]. POC established for CHF. copy mail to patient. pt here for post discharge/hospital follow up. DX with CHF exacerbation and persistent Atrial fib, as well as left leg cellulitis, completed antibiotic treatment.She experiences significant fluid retention, particularly in her legs, which feel heavy and painful. She uses compression stockings to manage the fluid retention but finds them painful to put on due to swelling. She mentions a need for a lymphatic pump to aid in fluid management, as suggested by her visiting nurse, but is unsure of the specific type needed and seeks assistance in obtaining it.She has a history of cellulitis in her left leg, which she describes as severe. Pt states it is still red but not warm or swollen anymore.She was recently hospitalized due to fluid overload and difficulty breathing. Her appointments with her hot plate plywood press operator were repeatedly canceled, delaying her care. She was admitted after contacting her hot plate plywood press operator directly due to her inability to breathe.She is currently taking gabapentin 100 mg once daily for nerve pain, which she reports as ineffective. She also takes amiodarone, torsemide, Tylenol, vitamin D, Eliquis, Jardiance, and metoprolol. She notes confusion regarding her torsemide dosage, as she is instructed to take 10 mg despite having 20 mg tablets.- Visiting nurse visits twice a week Mert Yin MD [address] [place] [address], [phone], [facility] 04/26/2024 09:49:06 OBGyn Episode No OBEpisode recorded.
== END 2024-05-08 14:29 | disposition home or self-care (01) ==
PROVIDERS: PCP Family Medicine
DX: I48.0 Paroxysmal atrial fibrillation (principal); I50.30 Unspecified diastolic (congestive) heart failure; I10 Essential (primary) hypertension; Z95.0 Presence of cardiac pacemaker; Z09 Encounter for follow-up examination after completed treatment for conditions other than malignant neoplasm
CPT/HCPCS: 99214

== ENCOUNTER → 2024-05-08 13:30 | Outpatient (BNVA) | payer MEDICARE, SELFPAY | PROVIDERS: PCP Family Medicine | DX: Z09 Encounter for follow-up examination after completed treatment for conditions other than malignant neoplasm (principal); I11.0 Hypertensive heart disease with heart failure; I50.30 Unspecified diastolic (congestive) heart failure; I48.0 Paroxysmal atrial fibrillation; Z95.0 Presence of cardiac pacemaker | CPT/HCPCS: 93005; 99212 ==

== ENCOUNTER → 2024-07-05 23:59 | Outpatient (BNV) | payer MEDICARE, SELFPAY ==
--- NOTE | 2024-07-08 14:42 | MHC.OFFVIS ---
Intake Visit Reasons: Remote device check- Medtronic Allergies Seasonal Allergies Allergy (Mild, Verified 04/10/24 13:25) itching and sneezing [facility] Medical History (Updated 05/12/24 @ 14:33 by Murali Alonzo NP) Cardiac pacemaker in situ Acute on chronic diastolic (congestive) heart failure Persistent atrial fibrillation History of cardioversion Arthritis Sick sinus syndrome (HFpEF) heart failure with preserved ejection fraction Hypertension TIA (transient ischemic attack) Wears dentures Wears hearing aid in both ears Hx of cardiac pacemaker Degenerative joint disease Peripheral venous insufficiency Transient cerebral ischemia Hearing loss Retinal artery occlusion Obstructive sleep apnea Obesity (BMI 30-39.9) Surgical History History of right hip replacement Hx of tubal ligation Hx laparoscopic cholecystectomy History of esophagogastroduodenoscopy (EGD) Hx of colonoscopy Status post ORIF of fracture of ankle (~1984) History of cataract surgery (~2016) Social History Household Members: Spouse Housing: House Are you a primary health care sanitary technician to a significant other at home: No Do you presently have visiting nurse or other home services: No Alcohol intake: never Patient Tobacco Use Status: Former Tobacco user Tobacco use type: Cigarette Advance Directives Date on File: 01/14/21 service: No Current occupational status: retired Current occupation: right handed Office Procedures Cardiac Device Check Cardiac Device Check Details: Remote pacemaker report generated 07/05/2024. Pacemaker function is adequate [id number] Cardiac Device Interrogation, pacemaker Procedure code (CPT) selection complete Assessment & Plan Assessment & Plan (1) Cardiac pacemaker in situ: Comment: Medtronic dual-chamber pacemaker Code(s): Z95.0 - Presence of cardiac pacemaker Category: Medical Plan: See above Coding Level of Care Code Procedure Only Diagnoses Cardiac pacemaker in situ Z95.0 CPT Codes Cardiac Device Check - Cardiac Device 12: [id number]-Mnomrz Cardiac Device Interrogation, pacemaker ([id number])
== END ==
PROVIDERS: PCP Family Medicine; Visit Provider Internal Medicine Cardiovascular Disease
DX: Z45.018 Encounter for adjustment and management of other part of cardiac pacemaker (principal)
CPT/HCPCS: 93294

== ENCOUNTER 2024-07-10 08:39 | Outpatient (AMB) | payer MEDICARE, SELFPAY ==
[2024-07-10 08:38] VITALS: BP 140/80; PULSE 86; BMI 38.6
--- NOTE | 2024-07-10 08:38 | A.OFFVIS_ITS ---
Vital Signs 07/10/24 08:38 Height 5 ft 4 in Weight 224 lb 13.944 oz BMI 38.6 BP 140/80 H Blood Pressure Location Lt brachial Position Sitting Pulse 86 Intake Visit Reasons: r/s 02/27-2 6 mos f/u w/med pacer check/ekg Intake Note: Follow-up with ekg and Medtronic check feeling good Pill Coater Required: No Allergies Seasonal Allergies Allergy (Mild, Verified 04/10/24 13:25) itching and sneezing Medication List - Last Reconciled 07/10/24 by Franco Chopra MD amiodarone 200 mg PO DAILY apixaban (Eliquis) 5 mg PO BID cholecalciferol (vitamin D3) (Vitamin D3) 125 mcg PO DAILY empagliflozin (Jardiance) 10 mg PO DAILY 90 days gabapentin 200 mg PO DAILY metoprolol succinate ER 50 mg PO BEDTIME 90 days nitrofurantoin macrocrystal 100 mg PO BID torsemide 5 mg See Protocol PO DAILY vit C,E-Cp-usqxl-lutein-zeaxan 250-90-40-1 mg (PreserVision AREDS-2) 1 tab PO BID HPI Comments Details: Yina comes for follow-up. She has been noticing increasing leg swelling as well as some increasing shortness of breath. Noted to be in persistent atrial flutter on remote monitoring. Comes for follow-up today. Patient was been taking amiodarone once a day as well as metoprolol as should be. She was also taking oral anticoagulation regularly. Her torsemide was reduced from 10 mg to 5 mg as she has notice some weight gain up to 3 lb and some leg edema. She denies any palpitations. No lightheadedness, syncope. No exertional chest pain. [facility] Medical History Cardiac pacemaker in situ Acute on chronic diastolic (congestive) heart failure Persistent atrial fibrillation History of cardioversion Arthritis Sick sinus syndrome (HFpEF) heart failure with preserved ejection fraction Hypertension TIA (transient ischemic attack) Wears dentures Wears hearing aid in both ears Hx of cardiac pacemaker Degenerative joint disease Peripheral venous insufficiency Transient cerebral ischemia Hearing loss Retinal artery occlusion Obstructive sleep apnea Obesity (BMI 30-39.9) Surgical History History of right hip replacement Hx of tubal ligation Hx laparoscopic cholecystectomy History of esophagogastroduodenoscopy (EGD) Hx of colonoscopy Status post ORIF of fracture of ankle (~1984) History of cataract surgery (~2016) Social History Household Members: Spouse Housing: House Are you a primary childcare director to a significant other at home: No Do you presently have visiting nurse or other home services: No Alcohol intake: never Patient Tobacco Use Status: Former Tobacco user Tobacco use type: Cigarette Advance Directives Date on File: 01/14/21 service: No Current occupational status: retired Current occupation: right handed Review of Systems Const Denies chills, Denies fatigue, Denies fever(s), Denies frequent falls, Denies weakness, Denies weight gain and Denies weight loss ENT Denies dizziness Card Denies chest pain, Denies leg edema, Denies lightheadedness, Denies palpitations, Denies dyspnea, Denies dyspnea on exertion, Denies orthopnea and Denies other (loss of consciousness) Resp Denies cough, Denies dyspnea and Denies dyspnea on exertion GI Denies hematochezia and Denies change in stool character Musc Denies abnormal gait, Denies muscle weakness, Denies numbness, Denies radiating pain into limb and Denies tingling Neuro Denies Abnormal speech present, Denies abnormal gait, Denies dizziness, Denies frequent falls, Denies numbness, Denies tingling and Denies weakness Endo Denies fatigue and Denies palpitations Physical Exam Vital Signs: Last Vital Signs Pulse 86 07/10/24 08:38 BP 140/80 H 07/10/24 08:38 BMI result Body Mass Index 38.6 Const General: cooperative, comfortable, alert, awake, Physically active, in distress mild and respiratory and well groomed Nutritional Appearance: obese Orientation/consciousness: patient oriented x3 Limitations: no limitations HEENT Head: Yes normocephalic and Yes atraumatic Neck Neck: Yes trachea midline, Yes supple and Yes JVD Resp Effort & Inspection: normal respiratory effort Auscultation: clear to auscultation bilaterally Cardio Jugular venous distension: JVD Palpation: normal PMI Rhythm: abnormal rhythm irregularly irregular Heart sounds: S1 normal heart sound present, S2 normal heart sound present, no click, no gallops, no murmurs and no rubs GI Auscultation: normal bowel sounds Skin General skin exam: no rashes or lesions noted Neuro General: patient oriented x3 and no focal motor deficits Speech: No Abnormal speech present Extrem Other: There is a large open wound on the anterior aspect of the upper part of the left leg with fall smelling discharge with pus oozing out with blood-tinged secretion with necrotic skin flap General: No clubbing, No cyanosis, Yes edema (Left lower extremity swelling below knee) and Yes venous stasis dermatitis Psych Appearance: grossly normal Office Procedures Cardiac Device Check Cardiac Device Check Details: Dual-chamber Medtronic pacemaker in place. Programmed in MVP mode was reprogrammed to DDIR mode. Atrial flutter noted present for at least 6 months. Ventricular pacing thresholds adequate and reprogrammed to enhance battery life. Pacing lead impedance is stable. Battery life is at about 6 years 23034-DB Cardiac Device Check, pacemaker dual lead Procedure code (CPT) selection complete EKG Details: EKG shows atrial flutter with variable block with incomplete right bundle-branch block and nonspecific ST changes 18114-Bknjfyzlggxclowyq, Complete Assessment & Plan Assessment & Plan (1) Atrial flutter: Code(s): I48.92 - Unspecified atrial flutter Category: Medical Plan: Persistent atrial flutter with increasing symptoms. At this point time discussed about management of rhythm control which has helped her significantly in the past with a heart failure syndrome. At this point time will pursue synchronized cardioversion. Discussed risks, benefits, alternatives to the procedure. If this fails then probably pursue rate control approach and discontinue amiodarone therapy. If this is successful also will refer her to electrophysiology for pursuing ablation. She is considering it. Provided her with the information. Will refer her to [facility] electrophysiology for the same. Patient understands agrees. Continue for now amiodarone and metoprolol therapy. Continue full oral anticoagulation, currently on Eliquis 5 mg b.i.d.. (2) (HFpEF) heart failure with preserved ejection fraction: Code(s): I50.30 - Unspecified diastolic (congestive) heart failure Category: Medical Plan: Heart failure preserved ejection fraction with mild decompensation with increase fluid overload today probably due to persistent atrial flutter as well as reduction torsemide dose. At this point time advised her to increase her torsemide to 10 mg daily. Continue Jardiance therapy. Continue to pursue rhythm control approach as about dry. Avoidance of salt loading was discussed advised daily weight monitoring avoidance salt loading. Will check BMP and BNP today. (3) Cardiac pacemaker in situ: Comment: Medtronic dual-chamber pacemaker Code(s): Z95.0 - Presence of cardiac pacemaker Category: Medical Plan: Cardiac pacemaker in-situ, working well. Reprogrammed for persistent atrial flutter. Will reprogrammed following cardioversion. Will follow up in the clinic in 6 weeks time, sooner p.r.n.. Thank you for allowing me to partake in her care Orders: Orders Cardioversion 2 Weeks I48.92 - Unspecified atrial flutter Basic Metabolic Panel Today I50.30 - Unspecified diastolic (congestive) heart failure B Type Natriuretic Peptide Today I50.30 - Unspecified diastolic (congestive) heart failure Coding Level of Care Code Est Pt Level 4 (76194) Complex EM visit Add On G2211 Diagnoses Atrial flutter I48.92 (HFpEF) heart failure with preserved ejection fraction I50.30 Cardiac pacemaker in situ Z95.0 CPT Codes Cardiac Device Check - Cardiac Device 2: 49966-NA Cardiac Device Check, pacemaker dual lead ([id number]) EKG - CPT: 97148-Qohzvzphfsgivlrwm, Complete ([id number])
--- OUTSIDE RECORDS SUMMARY | 2024-07-10 08:58 | XMS_ITS ---
Author Organization [facility] Support Name Relationship Address Phone Tae Rutledge Emergency Contact same as pt Yina Rutledge Guarantor same as above Unavailable Yina Rutledge Personal Relationship same as ab ove Unavailable Kita Maldonado Emergency Contact [address] [place] [phone] Allergies and adverse reactions Code CodeSystem Substance Reaction Severity StartDate Concern Status 11914 RXNORM Valacyclovir Unknown 07/13/2017 active Microzide Unknown 07/13/2017 active 03950 RXNORM Lisinopril Unknown 07/13/2017 active 723 RXNORM Amoxicillin Unknown 07/13/2017 active 19151 RXNORM Amlodipine Unknown 07/13/2017 active Immunizations Immunization Status Vaccine Details Vaccine Code CodeSystem Date Notes Influenza completed Influenza, split virus, trivalent, injectable, contains preservative Given intramuscularly 141 CVX created date: 8 administe red date: 7 Flu vaccine administered by PCP Pneumovax Dose 1 completed created date: 8 administe red date: 7 Resident received both flu and pneumovac at PCP office Mental Status Section Date Assessment Total Score Description 07/16/2017 BIMS 12 moderate cognit kavya impairment CAM 0 No delirium ind icated PHQ-9 02 minimal depress ion Problems Problem # Description Date of onset Resolved Date Code CodeSystem Concern Status 1 ACUTE AND SUBACUTE HEPATIC FAILURE WITHOUT COMA [address] active 2 ACUTE KIDNEY FAILURE WITH TUBULAR NECROSIS [address] active 3 CONTUSION OF LEFT UPPER ARM, SUBSEQUENT ENCOUNTER [address] active 4 ESSENTIAL (PRIMARY) HYPERTENSION [address] active 5 [address] active 6 NUTRITIONAL ANEMIA, UNSPECIFIED [address] active 7 PERICARDIAL EFFUSION (NONINFLAMMATORY) [address] active 8 SOLITARY PULMONARY NODULE [address] active 9 UNSPECIFIED ABNORMALITIES OF GAIT AND MOBILITY [address] active 10 UNSPECIFIED ATRIAL FIBRILLATION [address] active 11 WEAKNESS [address] active Reason for Referral No Reasons for Referral Entered Social History Social History Observation Description Start Date End Date Code Code System Current Smoking Status Tobacco smoking consumption unknown 053187900 SNOMED CT Sex Assigned At Female 1940 96962-0 [facility] Vital Signs Code Code System Vitals Name Values and Units Timing Information 56602-8 [facility] Pain Level Value=0.0 07/16/2017 9279-1 [facility] Respiratory Rate Value=18.0 Units=/m in 07/16/2017 8462-4 [facility] Blood Pressure-Diastolic Value=82 Un its=mmHg 07/16/2017 8480-6 [facility] Blood Pressure-Systolic Ecakp=232 Un its=mmHg 07/16/2017 8310-5 [facility] Body Temperature Value=98.0 Units=?? F 07/16/2017 8867-4 [facility] Heart rate Value=66.0 Units=/min 09/2017 39526-8 [facility] O2 % BldC Oximetry Value=95.0 Units= % 07/16/2017 46088-9 [facility] Weight Iijzb=004.0 Units=Lbs 08/2017 8302-2 [facility] Height Value=64.0 Units=Inches 07/13/2017
== END 2024-07-10 09:28 | disposition home or self-care (01) ==
LOC: HO.HCS 08:40
PROVIDERS: PCP Family Medicine; Visit Provider Internal Medicine Cardiovascular Disease
DX: I48.92 Unspecified atrial flutter (principal); I50.30 Unspecified diastolic (congestive) heart failure; Z95.0 Presence of cardiac pacemaker
CPT/HCPCS: 93010; 93280; 99214; G2211

== ENCOUNTER 2024-07-10 08:39 | Outpatient (REF) | payer MEDICARE, SELFPAY ==
--- OUTSIDE RECORDS SUMMARY | 2024-07-10 10:50 | XMS_ITS ---
Author Organization [facility] Support Name Relationship Address Phone Tae Rutledge Emergency Contact same as pt Yina Rutledge Guarantor same as above Unavailable Yina Rutledge Personal Relationship same as ab ove Unavailable Kita Maldonado Emergency Contact [address] [place] [phone] Allergies and adverse reactions Code CodeSystem Substance Reaction Severity StartDate Concern Status 92300 RXNORM Valacyclovir Unknown 07/13/2017 active Microzide Unknown 07/13/2017 active 94604 RXNORM Lisinopril Unknown 07/13/2017 active 723 RXNORM Amoxicillin Unknown 07/13/2017 active 67452 RXNORM Amlodipine Unknown 07/13/2017 active Immunizations Immunization [...] AND SUBACUTE HEPATIC FAILURE WITHOUT COMA [address] active 2 ACUTE KIDNEY FAILURE WITH TUBULAR NECROSIS [address] active 3 CONTUSION OF LEFT UPPER ARM, SUBSEQUENT ENCOUNTER [address] active 4 ESSENTIAL (PRIMARY) HYPERTENSION [address] active 5 HYPERKALEMIA [address] active 6 NUTRITIONAL ANEMIA, UNSPECIFIED [address] active 7 PERICARDIAL EFFUSION (NONINFLAMMATORY) [address] active 8 SOLITARY PULMONARY NODULE [address] active 9 UNSPECIFIED ABNORMALITIES OF GAIT AND MOBILITY [address] active 10 UNSPECIFIED ATRIAL FIBRILLATION [address] active 11 WEAKNESS [address] active Reason for Referral No Reasons for Referral Entered Social History Social History Observation Description Start Date End Date Code Code System Current Smoking Status Tobacco smoking consumption unknown 270318067 SNOMED CT Sex Assigned At Female 1940 97628-9 [facility] Vital Signs Code Code System Vitals Name Values and Units Timing Information 55195-4 [facility] Pain Level Value=0.0 07/16/2017 9279-1 [facility] Respiratory Rate Value=18.0 Units=/m in 07/16/2017 8462-4 [facility] Blood Pressure-Diastolic Value=82 Un its=mmHg 07/16/2017 8480-6 [facility] Blood Pressure-Systolic Knfcx=993 Un its=mmHg 07/16/2017 8310-5 [facility] Body Temperature Value=98.0 Units=?? F 07/16/2017 8867-4 [facility] Heart rate Value=66.0 Units=/min 09/2017 93894-4 [facility] O2 % BldC Oximetry Value=95.0 Units= % 07/16/2017 56964-3 [facility] Weight Ostqg=189.0 Units=Lbs 08/2017 8302-2 [facility] Height Value=64.0 Units=Inches 07/13/2017
[2024-07-10 10:57] LABS: Anion Gap 11 (12-20); Blood Urea Nitrogen 28 mg/dL (9-16); Calcium 9.5 mg/dL (8.4-10.2); Carbon Dioxide 32 mmol/L (22-29); Chloride 103 mmol/L (96-108); Estimated Glomerular Filt Rate 57; Glucose Random 101 mg/dL (60-115); Potassium 5.2 mmol/L (3.3-5.1); Sodium 141 mmol/L (135-145)
[2024-07-10 11:05] LABS: B Type Natriuretic Peptide 308 pg/mL (<100)
== END 2024-07-10 08:40 | disposition home or self-care (01) ==
LOC: HO.LAB 08:39
PROVIDERS: PCP Family Medicine; Visit Provider Internal Medicine Cardiovascular Disease
DX: I48.92 Unspecified atrial flutter (principal); I50.30 Unspecified diastolic (congestive) heart failure; Z95.0 Presence of cardiac pacemaker
CPT/HCPCS: 36415; 80048; 83880; 93005; 93280; 99212

== ENCOUNTER 2024-07-21 09:20 | Day surgery (SDC) | payer MEDICARE, SELFPAY ==
--- OUTSIDE RECORDS SUMMARY | 2024-07-10 10:20 | XMS_ITS ---
Author Organization [facility] Support Name Relationship Address Phone Tae Rutledge Emergency Contact same as pt Yina Rutledge Guarantor same as above Unavailable Yina Rutledge Personal Relationship same as ab ove Unavailable Kita Maldonado Emergency Contact [address] [place] [phone] Allergies and adverse reactions Code CodeSystem Substance Reaction Severity StartDate Concern Status 62364 RXNORM Valacyclovir Unknown 07/13/2017 active Microzide Unknown 07/13/2017 active 29881 RXNORM Lisinopril Unknown 07/13/2017 active 723 RXNORM Amoxicillin Unknown 07/13/2017 active 92463 RXNORM Amlodipine Unknown 07/13/2017 active Immunizations Immunization [...] AND SUBACUTE HEPATIC FAILURE WITHOUT COMA [address] active 2 ACUTE KIDNEY FAILURE WITH TUBULAR NECROSIS [address] active 3 CONTUSION OF LEFT UPPER ARM, SUBSEQUENT ENCOUNTER [address] active 4 ESSENTIAL (PRIMARY) HYPERTENSION [address] active 5 HYPERKALEMIA [address] active 6 NUTRITIONAL ANEMIA, UNSPECIFIED [address] active 7 PERICARDIAL EFFUSION (NONINFLAMMATORY) [address] active 8 SOLITARY PULMONARY NODULE [address] active 9 UNSPECIFIED ABNORMALITIES OF GAIT AND MOBILITY [address] active 10 UNSPECIFIED ATRIAL FIBRILLATION [address] active 11 WEAKNESS [address] active Reason for Referral No Reasons for Referral Entered Social History Social History Observation Description Start Date End Date Code Code System Current Smoking Status Tobacco smoking consumption unknown 510019166 SNOMED CT Sex Assigned At Female 1940 43453-2 [facility] Vital Signs Code Code System Vitals Name Values and Units Timing Information 01948-1 [facility] Pain Level Value=0.0 07/16/2017 9279-1 [facility] Respiratory Rate Value=18.0 Units=/m in 07/16/2017 8462-4 [facility] Blood Pressure-Diastolic Value=82 Un its=mmHg 07/16/2017 8480-6 [facility] Blood Pressure-Systolic Xhdrh=609 Un its=mmHg 07/16/2017 8310-5 [facility] Body Temperature Value=98.0 Units=?? F 07/16/2017 8867-4 [facility] Heart rate Value=66.0 Units=/min 09/2017 78245-4 [facility] O2 % BldC Oximetry Value=95.0 Units= % 07/16/2017 52145-6 [facility] Weight Lorhs=141.0 Units=Lbs 08/2017 8302-2 [facility] Height Value=64.0 Units=Inches 07/13/2017
[2024-07-17 11:15] VITALS: BMI 38.6
--- NOTE | 2024-07-17 11:54 | HO.ANESPROP2 ---
Documented by User: Holly Orellana NP 07/17/24 11:57 HPI - Anesthesia Eval Consult details Narrative: 83yo F for Cardioversion Pacer in situ Eliquis for afib Anesthesia Pre-Procedure Meds Is the patient on any of the following meds?: SGLT2 Inhib PMFSH Active Problems Active Problems: All Active Problems Atrial flutter (Acute) Cardiac pacemaker in situ (Acute) Hypertension (Acute) Decompensated heart failure (Acute) Wound of left leg (Acute) Abscess (Acute) Paroxysmal atrial fibrillation (Acute) Bursitis of right shoulder (Acute) Impingement syndrome of right shoulder (Acute) S/P total hip arthroplasty (Acute) Osteoarthritis of right hip (Acute) Bilateral hip joint arthritis (Acute) (HFpEF) heart failure with preserved ejection fraction (Acute) Past Medical History Medical History Acute on chronic diastolic (congestive) heart failure History of cardioversion Arthritis Persistent atrial fibrillation Sick sinus syndrome Cardiac pacemaker in situ (HFpEF) heart failure with preserved ejection fraction Hypertension TIA (transient ischemic attack) Wears dentures Wears hearing aid in both ears Hx of cardiac pacemaker Degenerative joint disease Peripheral venous insufficiency Transient cerebral ischemia Hearing loss Retinal artery occlusion Obstructive sleep apnea Obesity (BMI 30-39.9) Family History Family history of problems with anesthesia: No Surgical History Surgical History H/O heart surgery History of right hip replacement Hx of tubal ligation Hx laparoscopic cholecystectomy History of esophagogastroduodenoscopy (EGD) Hx of colonoscopy Status post ORIF of fracture of ankle (~1984) History of cataract surgery (~2016) History of Problems with Anesthesia: No Social History Social History Household Members: Spouse Housing: House Are you a primary women's health care nurse practitioner to a significant other at home: No Do you presently have visiting nurse or other home services: No Alcohol intake: never Patient Tobacco Use Status: Former Tobacco user Tobacco use type: Cigarette Years Smoked: 20 Smoked in Last 30 Days: No Use of substances other than those prescribed or required for medical reasons: No Have you been hit, kicked, punched, or otherwise hurt by someone within the past year? If so, by whom?: No Are you DNR?: No Advance Directives: Yes Advance Directives Information Provided: Yes Advance Directives on File: Yes Advance Directives Date on File: 09/20/17 Patient : No : No Poor oral hygiene: No service: No Current occupational status: retired Current occupation: right handed Meds Allergies Allergy/AdvReac Type Severity Reaction Status Date / Time Seasonal Allergies Allergy Mild itching Verified 07/21/24 10:05 and sneezing Home Medications ?Medication ?Instructions ?Recorded ?Confirmed ?Last Taken ?Type apixaban 5 mg tablet (Eliquis) 5 mg PO BID 10/12/20 07/21/24 07/21/24 History cholecalciferol (vitamin D3) 125 125 mcg PO DAILY 04/10/24 07/21/24 07/21/24 History mcg (5,000 unit) tablet (Vitamin D3) vit C 250 mg-vit E 90 mg-zinc 40 1 tab PO BID 04/10/24 07/21/24 07/21/24 History mg-copper 1 [id number] capsule (PreserVision AREDS-2) gabapentin 100 mg capsule 200 mg PO DAILY 05/08/24 07/21/24 07/21/24 History torsemide 20 mg tablet 10 mg PO DAILY 07/10/24 07/21/24 07/21/24 History albuterol sulfate 90 mcg/actuation 2 puff inhalation DAILY PRN sob 07/21/24 07/21/24 Unknown History aerosol inhaler Exam Height,Weight and Vital Signs: Height 5 ft 4 in Weight 102.058 kg Pertinent Lab Results Pertinent Lab Results: Laboratory Tests 04/10/24 07/10/24 14:15 10:04 WBC 5.9 Hgb 16.0 D Hct 47.4 H D Plt Count 197 Sodium 141 Potassium 5.2 H D Chloride 103 Carbon Dioxide 32 H BUN 28 H Creatinine 0.94 B-Natriuretic Peptide 308 H Narrative Narrative: 07/2024 Cardiac Device Check Details: Dual-chamber [employer] pacemaker in place. Programmed in MVP mode was reprogrammed to DDIR mode. Atrial flutter noted present for at least 6 months. Ventricular pacing thresholds adequate and reprogrammed to enhance battery life. Pacing lead impedance is stable. Battery life is at about 6 years 35464-XH Cardiac Device Check, pacemaker dual lead Procedure code (CPT) selection complete EKG Details: EKG shows atrial flutter with variable block with incomplete right bundle-branch block and nonspecific ST changes 63443-[id number], Complete Assessment and Plan Assessment Anesthesia Assessment: Chart Reviewed Final Anesthetic Review Family History of Problems with Anesthesia: No History of Problems with Anesthesia: No Documented by User: Mackenzie Patrick MD 07/21/24 10:48 [facility] Past Medical History Medical History Acute on chronic diastolic (congestive) heart failure History of cardioversion Arthritis Persistent atrial fibrillation Sick sinus syndrome Cardiac pacemaker in situ (HFpEF) heart failure with preserved ejection fraction Hypertension TIA (transient ischemic attack) Wears dentures Wears hearing aid in both ears Hx of cardiac pacemaker Degenerative joint disease Peripheral venous insufficiency Transient cerebral ischemia Hearing loss Retinal artery occlusion Obstructive sleep apnea Obesity (BMI 30-39.9) Surgical History Surgical History H/O heart surgery History of right hip replacement Hx of tubal ligation Hx laparoscopic cholecystectomy History of esophagogastroduodenoscopy (EGD) Hx of colonoscopy Status post ORIF of fracture of ankle (~1984) History of cataract surgery (~2016) Social History Social History Household Members: Spouse Housing: House Are you a primary women's health care nurse practitioner to a significant other at home: No Do you presently have visiting nurse or other home services: No Alcohol intake: never Patient Tobacco Use Status: Former Tobacco user Tobacco use type: Cigarette Years Smoked: 20 Smoked in Last 30 Days: No Use of substances other than those prescribed or required for medical reasons: No Have you been hit, kicked, punched, or otherwise hurt by someone within the past year? If so, by whom?: No Are you DNR?: No Advance Directives: Yes Advance Directives Information Provided: Yes Advance Directives on File: Yes Advance Directives Date on File: 09/20/17 Patient : No : No Poor oral hygiene: No service: No Current occupational status: retired Current occupation: right handed Meds Allergies Allergy/AdvReac Type Severity Reaction Status Date / Time Seasonal Allergies Allergy Mild itching Verified 07/21/24 10:05 and sneezing Home Medications ?Medication ?Instructions ?Recorded ?Confirmed ?Last Taken ?Type apixaban 5 mg tablet (Eliquis) 5 mg PO BID 10/12/20 07/21/24 07/21/24 History cholecalciferol (vitamin D3) 125 125 mcg PO DAILY 04/10/24 07/21/24 07/21/24 History mcg (5,000 unit) tablet (Vitamin D3) vit C 250 mg-vit E 90 mg-zinc 40 1 tab PO BID 04/10/24 07/21/24 07/21/24 History mg-copper 1 [id number] capsule (PreserVision AREDS-2) gabapentin 100 mg capsule 200 mg PO DAILY 05/08/24 07/21/24 07/21/24 History torsemide 20 mg tablet 10 mg PO DAILY 07/10/24 07/21/24 07/21/24 History albuterol sulfate 90 mcg/actuation 2 puff inhalation DAILY PRN sob 07/21/24 07/21/24 Unknown History aerosol inhaler Exam Airway Mallampati Class: II (edentuolus) TM Dist: >3cm Neck ROM: Full Denture: Upper and Lower Loose/Missing/Broken Teeth: Yes, Upper and Lower Heart: irregularly irregular Lungs: CTA Assessment and Plan Final Anesthetic Review ASA Class: III Final Preanesthetic Review: Meds/Allgs Chart Reviewed, Consent Obtained/Reviewed and Anes Risks/Benef Reviewed Patient Risk: Intermediate Procedure Risk: Intermediate Anesthetic Plan Anesthetic Plan: GA Disposition: Standard PACU
[2024-07-21 10:09] VITALS: BMI 38.3
[2024-07-21] MEDS: Lactated Ringers 500 ML 20 ML IVCONT (10:32)
[2024-07-21 11:10] VITALS: BP 136/72; PULSE 99; RESP 16; TEMP 36.3; O2SAT 96
--- NOTE | 2024-07-21 11:22 | MHC.SHP ---
Pre-Procedural Eval Section A - 24 Hr Update-Section A only Date of Service: 07/21/24 The patient is an INPATIENT: No Changes since office visit: Yes Changes in Medication and Yes Patient answered all questions; No Cold of Flu in the past 2 weeks and No New Medical Problems The patient has been examined within 24 hours of the surgical procedure. The History & Physical has been completed within 30 days and I have reviewed it.: Yes Section B - Complete if H&P > 30 days Chief Complaint: Paroxysmal atrial fibrillation Allergies: Allergies Allergy/AdvReac Type Severity Reaction Status Date / Time Seasonal Allergies Allergy Mild itching Verified 07/21/24 10:05 and sneezing Plan I have reviewed the history and physical and performed a pertinent physical examination on my patient. No changes have occurred unless specified. Time Spent With Patient Time: Total time managing care of this patient today ____ minutes.
--- NOTE | 2024-07-21 11:38 | ECG_ITS ---
Test Reason : POST CADIOVERSION Blood Pressure : */* mmHG Vent. Rate : 61 BPM Atrial Rate : 61 BPM P-R Int : * ms QRS Dur : 156 ms QT Int : 554 ms P-R-T Axes : * -79 22 degrees QTcB Int : 557 ms AV dual-paced rhythm Abnormal ECG When compared with ECG of 10-Apr-2024 13:12, AV dual-paced rhythm has replaced Atrial fibrillation Vent. rate has decreased by 39 bpm Referred By: Franco Chopra Electronically Signed By: FRANCO CHOPRA MD
[2024-07-21 11:42] VITALS: BP 104/50; PULSE 61; RESP 18; TEMP 36.3; O2SAT 94
[2024-07-21 11:47] VITALS: BP 107/52; PULSE 61; RESP 14; O2SAT 94
[2024-07-21 11:52] VITALS: BP 102/55; PULSE 61; RESP 17; O2SAT 96
[2024-07-21 11:57] VITALS: BP 111/55; PULSE 60; RESP 13; O2SAT 97
--- NOTE | 2024-07-21 11:59 | HO.CARDIVERS ---
Cardioversion Procedure Note Cardioversion Date of Procedure: 07/21/2024 Ordering Provider: Ortiz Chopra Performing Provider: Ortzi Chopra Indication for Procedure: Symptomatic persistent atrial flutter/fibrillation Pre-Op Diagnosis: Same Post-Op Diagnosis: Atrial paced rhythm Performed with Transesophageal Echo: No History: See my note Consent: Verbal and Written consent was obtained from the patient before starting and confirming oral anticoagulation use. The patient was made aware of the risk of synchronized cardioversion including benefits and alternatives. Procedure: After consent obtained, cardioversion pads were attached anteroposterior configuration and the patient was sedated by the anesthesia team. Once adequate sedation achieved, patient was delivered 200 joules of biphasic synchronized energy in anteroposterior configuration. After performing cardioversion, pacemaker was reprogrammed from DDIR to DDDR. Atrial ventricular pacing thresholds excellent. Atrial ventricular pacing lead impedance was stable. Battery life was at 6 years Complications: None Impression: Successful conversion to atrial paced rhythm and reestablishing AV synchrony Recommendations: 1. Continue amiodarone and full oral anticoagulation 2. Follow up in the clinic in 4 weeks time
[2024-07-21 12:12] VITALS: BP 120/51; PULSE 59; RESP 16; TEMP 36.4; O2SAT 97
== END 2024-07-21 12:46 | disposition home or self-care (01) ==
PROVIDERS: PCP Family Medicine; Visit Provider Internal Medicine Cardiovascular Disease
PROC: 5A2204Z Restoration of Cardiac Rhythm, Single (ICD-10-PCS; principal; 2024-07-21 11:00)
DX: I48.19 Other persistent atrial fibrillation (principal); I48.0 Paroxysmal atrial fibrillation; Z79.01 Long term (current) use of anticoagulants; Z95.0 Presence of cardiac pacemaker
CPT/HCPCS: 92960; 93005; J2003; J2704

== ENCOUNTER → 2024-07-21 09:20 | Outpatient (BNV) | payer MEDICARE, SELFPAY | PROVIDERS: PCP Family Medicine; Visit Provider Internal Medicine Cardiovascular Disease | DX: I48.0 Paroxysmal atrial fibrillation (principal); R94.31 Abnormal electrocardiogram [ECG] [EKG] | CPT/HCPCS: 92960; 93010 ==

== ENCOUNTER 2024-07-31 08:20 | Outpatient (REF) | payer MEDICARE, SELFPAY ==
--- NOTE | ~2024-07-31 | XR_ITS ---
EXAMINATION: XR PELVIS 1-2 VIEWS HISTORY: M25.559 - Pain in unspecified hip COMPARISON: Comparison is made with the prior examination dated 12/29/2021. FINDINGS: A single AP view of the pelvis is submitted. The patient is status post right total hip arthroplasty. The orthopedic elements are in anatomic alignment. There is no radiographic evidence of loosening. There is no fracture or dislocation. There is moderate to severe osteoarthritis of the left hip, with joint space narrowing and osteophyte formation. XR/XR pelvis 1-2V IMPRESSION: Status post right total hip arthroplasty. Moderate to severe osteoarthritis of the left hip. Electronically signed by: Rubén Cardenas MD 07/31/2024 01:36 PM EDT
== END 2024-07-31 08:21 | disposition home or self-care (01) ==
LOC: HO.HOSX 08:20
PROVIDERS: Visit Provider Orthopaedic Surgery
DX: M25.559 Pain in unspecified hip (principal); S81.802A Unspecified open wound, left lower leg, initial encounter; Z96.649 Presence of unspecified artificial hip joint; M16.12 Unilateral primary osteoarthritis, left hip; I50.33 Acute on chronic diastolic (congestive) heart failure
CPT/HCPCS: 72170; 99212

== ENCOUNTER 2024-07-31 10:19 | Outpatient (AMB) | payer MEDICARE, SELFPAY ==
--- NOTE | 2024-07-31 10:30 | A.OFFVIS_ITS ---
Vital Signs 07/31/24 10:31 Height 5 ft 4 in Weight 222 lb BMI 38.1 Intake Visit Reasons: OV - New prob LT hip pain Intake Note: Yina is an 83 year old female who presents today for a new problem visit with complaints of left hip pain. Hx of RT THERON 01/11/2021 NE. Patient reports that the left hip has been painful for about 6 months. She reports that the left hip has been giving out on her and she is concerned that she will be taking a fall. Allergies Seasonal Allergies Allergy (Mild, Verified 07/31/24 10:34) itching and sneezing HPI HPI OV - New prob LT hip pain: Details: Yina is a 83-year-old woman who underwent a right 3-1/2 years ago. She did very well and comes in today with continued left hip pain. She has known severe left hip osteoarthritis. Now she describes giving way and a fear of falling and limited ambulatory capacity with left-sided groin pain. She takes amiodarone and Eliquis and recently underwent a cardioversion for a history of atrial fibrillation/sick sinus syndrome with a diagnosis of heart failure with preserved ejection fraction. She states this was set present when she underwent her right hip replacement. She also fell 2 years ago and sustained an injury to her lower left leg. She did not initially seek medical attention and this progressed to a nonhealing wound ever require debridement and wound care. This has since resolved but it has left a area of diminished vascularity over the an terior distal cedillo and has not helped her edema. In addition she was admitted to the hospital for a CHF exacerbation approximately 3 months ago. [facility] [place] Medical History (Updated 08/02/24 @ 09:45 by Casa Lee MD) Acute on chronic diastolic (congestive) heart failure History of cardioversion Arthritis Persistent atrial fibrillation Sick sinus syndrome Cardiac pacemaker in situ (HFpEF) heart failure with preserved ejection fraction Hypertension TIA (transient ischemic attack) Wears dentures Wears hearing aid in both ears Hx of cardiac pacemaker Degenerative joint disease Peripheral venous insufficiency Transient cerebral ischemia Hearing loss Retinal artery occlusion Obstructive sleep apnea Obesity (BMI 30-39.9) Surgical History H/O heart surgery History of right hip replacement Hx of tubal ligation Hx laparoscopic cholecystectomy History of esophagogastroduodenoscopy (EGD) Hx of colonoscopy Status post ORIF of fracture of ankle (~1984) History of cataract surgery (~2017) Social History Household Members: Spouse Housing: House Are you a primary lawn care technician to a significant other at home: No Do you presently have visiting nurse or other home services: No Alcohol intake: never Patient Tobacco Use Status: Former Tobacco user Tobacco use type: Cigarette Years Smoked: 20 Advance Directives Date on File: 09/20/17 service: No Current occupational status: retired Current occupation: right handed Physical Exam Vital Signs: BMI result Body Mass Index 38.1 Extrem Other: On examination of her left hip she has marked pain with flexion and internal rotation of the left hip consistent with a positive impingement test. She walks with an assistive device and has a left-sided Trendelenburg limp. She does have a healed wound over the anterior aspect of the distal 3rd of the left tibia. There is adjacent hyperemia and atypical vascularity although no evidence of infection or active process. She has a 2+ dorsalis pedis pulse bilaterally. She does have 1+ edema bilaterally. Results Reviewed Results Reviewed: I personally reviewed relevant radiographs. Right THERON in expected post operative position with no hardware complications or evidence of loosening Left hip with severe osteoarthritis that has progressed steadily over the past few years. Assessment & Plan Assessment & Plan (1) Wound of left leg: Code(s): S81.802A - Unspecified open wound, left lower leg, initial encounter Category: Medical Plan: 9-year-old woman with a healed wound over left lower extremity. This has resulted in some chronic skin changes and with her underlying edema this would be something to keep an eye on in the setting of ipsilateral hip replacement. No acute intervention warranted however. (2) S/P total hip arthroplasty: Comment: Right: 01/11/21 Code(s): Z96.649 - Presence of unspecified artificial hip joint Category: Surgical Plan: Right hip is doing well with no complications. She is happy with her progress and her pain. (3) Primary osteoarthritis of left hip: Code(s): M16.12 - Unilateral primary osteoarthritis, left hip Category: Medical Plan: 83-year-old woman with severe osteoarthritis of the left hip. She is status post successful right hip replacement approximately 3-1/2 years ago. She does feel that she is unable to ambulate comfortably and worried about falling because of her left hip pain. She states her recent cardioversion has been successful and she feels like she wants to walk but can not. She would like to have a left hip replacement. I think this is theoretically reasonable but she does have some risk factors. Those risks factors mostly related to her heart and to her lower extremity edema. I introduced her to our nurse navigator and we can begin the preoperative clearance process. Do not operate on patients that are high risk but if she is [id number] risk we can continue the conversation otherwise I would refer her to a tertiary care center. (4) Acute on chronic diastolic (congestive) heart failure: Code(s): I50.33 - Acute on chronic diastolic (congestive) heart failure Category: Medical Plan: Yina was recently admitted to the hospital or CHF exacerbation. In her medical chart it appears that her ejection fraction is maintained and she recently underwent a cardioversion which she states has been helpful. Orders: Orders XR pelvis 1-2V 07/31/24 M25.559 - Pain in unspecified hip Coding Level of Care Code Est Pt Level 4 (59278) Complex EM visit Add On G2211 Diagnoses Wound of left leg S81.802A S/P total hip arthroplasty Z96.649 Primary osteoarthritis of left hip M16.12 Acute on chronic diastolic (congestive) heart failure I50.33
[2024-07-31 10:31] VITALS: BMI 38.1
== END 2024-07-31 11:06 | disposition home or self-care (01) ==
LOC: HO.HOS 10:19
PROVIDERS: PCP Family Medicine; Visit Provider Orthopaedic Surgery
DX: S81.802A Unspecified open wound, left lower leg, initial encounter (principal); Z96.649 Presence of unspecified artificial hip joint; M16.12 Unilateral primary osteoarthritis, left hip; I50.33 Acute on chronic diastolic (congestive) heart failure
CPT/HCPCS: 99214; G2211

== ENCOUNTER → 2024-07-31 10:21 | Outpatient (BNV) | payer MEDICARE, SELFPAY | PROVIDERS: Visit Provider Radiology Diagnostic Radiology | DX: M16.12 Unilateral primary osteoarthritis, left hip (principal) | CPT/HCPCS: 72170 ==

== ENCOUNTER 2024-08-18 12:15 | Outpatient (AMB) | payer MEDICARE, SELFPAY ==
[2024-08-18 12:46] VITALS: BP 120/72; PULSE 109; BMI 37.8
--- NOTE | 2024-08-18 12:46 | MHC.OFFVIS ---
Vital Signs 08/18/24 12:46 Height 5 ft 4 in Weight 220 lb 7.396 oz BMI 37.8 BP 120/72 Blood Pressure Location Lt brachial Position Sitting Pulse 109 H Intake Visit Reasons: fu CV- pacer chck with rep Intake Note: Follow-up with ekg and medtronic check feeling good Fiscal Clerk Required: No Allergies Seasonal Allergies Allergy (Mild, Verified 07/31/24 10:34) itching and sneezing Medication List - Last Reconciled 08/18/24 by Franco Chopra MD albuterol sulfate 90 mcg/actuation 2 puffs inhalation DAILY PRN amiodarone 200 mg PO DAILY apixaban (Eliquis) 5 mg PO BID cholecalciferol (vitamin D3) (Vitamin D3) 125 mcg PO DAILY empagliflozin (Jardiance) 10 mg PO DAILY 90 days gabapentin 200 mg PO DAILY metoprolol succinate ER 50 mg PO BEDTIME 90 days torsemide 10 mg See Protocol PO DAILY vit C,Q-Kv-ntyjf-lutein-zeaxan 250-90-40-1 mg (PreserVision AREDS-2) 1 tab PO BID HPI Comments Details: Yina comes for follow-up after her cardioversion. She says she is feeling a lot better in terms of shortness of breath and able to walk a mi without issues with much improved shortness of breath. However she comes in his noted to be in atrial flutter with rapid ventricular response with 2 is to 1 conduction despite amiodarone therapy and recent cardioversion. Her atrial flutter is persistent only since yesterday. Prior to that she had on and off atrial flutter. She has no bleeding issues or neurologic events. Denies any palpitations. No orthopnea, PND, leg edema. She says she might be scheduled for undergoing hip surgery in the left in November. [facility] Medical History Acute on chronic diastolic (congestive) heart failure History of cardioversion Arthritis Persistent atrial fibrillation Sick sinus syndrome Cardiac pacemaker in situ (HFpEF) heart failure with preserved ejection fraction Hypertension TIA (transient ischemic attack) Wears dentures Wears hearing aid in both ears Hx of cardiac pacemaker Degenerative joint disease Peripheral venous insufficiency Transient cerebral ischemia Hearing loss Retinal artery occlusion Obstructive sleep apnea Obesity (BMI 30-39.9) Surgical History H/O heart surgery History of right hip replacement Hx of tubal ligation Hx laparoscopic cholecystectomy History of esophagogastroduodenoscopy (EGD) Hx of colonoscopy Status post ORIF of fracture of ankle (~1984) History of cataract surgery (~2016) Social History Household Members: Spouse Housing: House Are you a primary day care center director to a significant other at home: No Do you presently have visiting nurse or other home services: No Alcohol intake: never Patient Tobacco Use Status: Former Tobacco user Tobacco use type: Cigarette Years Smoked: 20 Advance Directives Date on File: 09/20/17 service: No Current occupational status: retired Current occupation: right handed Review of Systems Const Denies chills, Denies fatigue, Denies fever(s), Denies frequent falls, Denies weakness, Denies weight gain and Denies weight loss ENT Denies dizziness Card Denies chest pain, Denies leg edema, Denies lightheadedness, Denies palpitations, Denies dyspnea, Denies dyspnea on exertion, Denies orthopnea and Denies other (loss of consciousness) Resp Denies cough, Denies dyspnea and Denies dyspnea on exertion GI Denies hematochezia and Denies change in stool character Musc Denies abnormal gait, Denies muscle weakness, Denies numbness, Denies radiating pain into limb and Denies tingling Neuro Denies Abnormal speech present, Denies abnormal gait, Denies dizziness, Denies frequent falls, Denies numbness, Denies tingling and Denies weakness Endo Denies fatigue and Denies palpitations Physical Exam Vital Signs: Last Vital Signs Pulse 109 H 08/18/24 12:46 BP 120/72 08/18/24 12:46 BMI result Body Mass Index 37.8 Const General: cooperative, comfortable, alert, awake, Physically active, in distress mild and respiratory and well groomed Nutritional Appearance: obese Orientation/consciousness: patient oriented x3 Limitations: no limitations HEENT Head: Yes normocephalic and Yes atraumatic Neck Neck: Yes trachea midline, Yes supple and Yes JVD Resp Effort & Inspection: normal respiratory effort Auscultation: clear to auscultation bilaterally Cardio Jugular venous distension: JVD Palpation: normal PMI Rate: tachycardic Heart sounds: S1 normal heart sound present, S2 normal heart sound present, no click, no gallops, no murmurs and no rubs GI Auscultation: normal bowel sounds Skin General skin exam: no rashes or lesions noted Neuro General: patient oriented x3 and no focal motor deficits Speech: No Abnormal speech present Extrem Other: There is a large open wound on the anterior aspect of the upper part of the left leg with fall smelling discharge with pus oozing out with blood-tinged secretion with necrotic skin flap General: No clubbing, No cyanosis, Yes edema (Left lower extremity swelling below knee) and Yes venous stasis dermatitis Psych Appearance: grossly normal Office Procedures Cardiac Device Check Cardiac Device Check Details: Dual-chamber Medtronic pacemaker in place. Programmed in DDDR at 60 beats per minute. Battery life is 4.7 years. Right atrial thresholds could not be checked due to persistent atrial flutter. Sensing was excellent. Pacing lead impedance stable. RV pacing thresholds excellent. Ventricular pacing 84% of the time. 69719-KR Cardiac Device Check, pacemaker dual lead Procedure code (CPT) selection complete EKG Details: EKG shows atrial flutter, appears to be typical with right-sided atrial flutter with 2 is to 1 conduction with incomplete right bundle-branch block and left anterior fascicular block 67537-[id number], Complete Assessment & Plan Assessment & Plan (1) Atrial flutter: Code(s): I48.92 - Unspecified atrial flutter Category: Medical Plan: Recurrent atrial flutter with rapid ventricular response without any symptoms currently although her symptoms have all be present when she has been in persistent atrial flutter fibrillation due to loss of AV synchrony. She says since cardioversion she has felt significantly better with her exercise capacity. At this point time we discussed about further treatment options. Treatment options would include ablation for atrial flutter as well as possible for atrial fibrillation. The risks, benefits, alternatives were discussed. She wants to think about it. For now will continue amiodarone and increase metoprolol to 50 mg b.i.d. for better rate control. Continue full oral anticoagulation, currently on Eliquis 5 mg b.i.d.. If she decides not to pursue rhythm control approach, will then discontinue amiodarone therapy. (2) Cardiac pacemaker in situ: Comment: Medtronic dual-chamber pacemaker Code(s): Z95.0 - Presence of cardiac pacemaker Category: Medical Plan: Cardiac pacemaker in-situ, working well. Will continue follow remotely and follow up in the clinic in 3 months time. (3) (HFpEF) heart failure with preserved ejection fraction: Code(s): I50.30 - Unspecified diastolic (congestive) heart failure Category: Medical Plan: Heart failure preserved ejection fraction with much improved symptoms after cardioversion although he is having recurrent atrial flutter and I think she might have recurrent symptoms related to that in the near future when she has persistent. For now clinically appears to be euvolemic well compensated. Continue Jardiance 10 mg daily. Continue torsemide 10 mg daily. Signs and symptoms of heart failure were discussed and management discussed. Daily weight monitoring avoidance salt loading was discussed. She understands and agrees. Additional diuretics as need be. (4) Preoperative cardiovascular examination: Code(s): Z01.810 - Encounter for preprocedural cardiovascular examination Category: Medical Plan: Preoperative cardiovascular risk stratification for left hip replacement surgery. She would need a vasodilating myocardial perfusion imaging to evaluate for myocardial ischemia as a risk stratification tool. However with the procedure may need to be postponed if she elects to pursue ablation therapy so that there was no interruption in overall anticoagulation therapy. Continue rate control approach for now. Continue current diuretic in his management. If myocardial perfusion imaging is within normal limits she is optimized to undergo hip surgery with intermediate risk for perioperative cardiovascular morbidity mortality. Will follow up in the clinic in 3 months time, sooner p.r.n.. Thank you for allowing me to partake in her care Orders: Orders CA lexiscan stress w kim Today Z01.810 - Encounter for preprocedural cardiovascular examination Medications: Changed From metoprolol succinate ER 50 mg PO BEDTIME 90 days 90 tabs 3RF Z01.810 - Encounter for preprocedural cardiovascular examination To metoprolol succinate ER 50 mg PO BID 180 tabs 3RF 90 days Z01.810 - Encounter for preprocedural cardiovascular examination Coding Level of Care Code Est Pt Level 4 (49587) Complex EM visit Add On G2211 Diagnoses Atrial flutter I48.92 Cardiac pacemaker in situ Z95.0 (HFpEF) heart failure with preserved ejection fraction I50.30 Preoperative cardiovascular examination Z01.810 CPT Codes Cardiac Device Check - Cardiac Device 2: [id number]-YM Cardiac Device Check, pacemaker dual lead ([id number]) EKG - CPT: 98721-[id number], Complete ([id number])
== END 2024-08-18 13:12 | disposition home or self-care (01) ==
LOC: HO.HCS 12:15
PROVIDERS: Visit Provider Internal Medicine Cardiovascular Disease
DX: I48.92 Unspecified atrial flutter (principal); Z95.0 Presence of cardiac pacemaker; I50.30 Unspecified diastolic (congestive) heart failure; Z01.810 Encounter for preprocedural cardiovascular examination
CPT/HCPCS: 93010; 93280; 99214; G2211

== ENCOUNTER → 2024-08-18 12:15 | Outpatient (BNVA) | payer MEDICARE, SELFPAY | PROVIDERS: Visit Provider Internal Medicine Cardiovascular Disease | DX: Z01.810 Encounter for preprocedural cardiovascular examination (principal); I50.30 Unspecified diastolic (congestive) heart failure; I48.92 Unspecified atrial flutter; Z95.0 Presence of cardiac pacemaker; I45.2 Bifascicular block; R94.31 Abnormal electrocardiogram [ECG] [EKG] | CPT/HCPCS: 93005; 93280; 99212 ==

== ENCOUNTER → 2024-09-02 10:02 | Outpatient (REF) | payer MEDICARE, SELFPAY ==
--- NOTE | ~2024-09-02 | NM_ITS ---
Lexiscan Myocardial perfusion study Indication: Preoperative cardiac evaluation Technique: The patient was brought in for a Lexiscan perfusion study on 09/02/2024 and was injected 0.4 mg of Lexiscan intravenously. Within a minute of this injection 35 mCi of sestamibi was given intravenously. Images were obtained using the SPECT gamma camera interlaced with the gating device. Images were obtained in supine position. Resting perfusion study was performed on 09/03/2024. Patient was administered 35 mCi of sestamibi intravenously at rest. Images were then obtained in supine position. Total DLP 75 mGy-cm. Images were processed with the software and compared side to side in short axis, horizontal long axis and vertical long axis views. Findings: Raw aquisition reviewed. The stress perfusion study showed no significant perfusion abnormality. Both uncorrected as well as CT attenuation corrected images were reviewed. The gated study shows normal LV systolic function with calculated LVEF of 35%, but visually appears to be much higher. LV cavity is normal in size. The gated study shows normal wall thickening and contraction of segments. Resting study shows no significant perfusion modality. Gating at rest reveals normal wall motion with ejection fraction at 48%, but visually appears higher. The findings are consistent with no clear reversible or fixed perfusion defects. NM/NM kim perf SPECT rest & str Impression: 1. Myocardial perfusion imaging study shows normal myocardial perfusion. 2. Gated LVEF is 35% during stress and 48% during rest, but visually appears higher. Correlate with echocardiogram. 3. Transient ischemic dilatation not present. EKG component of the test reported separately. Electronically signed by: Per Rob MD 09/03/2024 03:40 PM EDT
--- NOTE | 2024-09-02 10:05 | CA_ITS ---
Acquisition Time: 2024-09-02 10:25:35 Total Exercise Time: 00:02:00 Test Indications: PREOP Medications: ALBUTEROL AMIODARONE Protocol: LEXISCAN Max HR: 91 BPM 65% of Pred: 138 BPM Max BP: 128/74 mmHG Max Work Load: 1.0 METS Pharmacologicla stress test with Lexiscan while pt marches her legs in chair, with reports of sOB, with frequent PVCs, with normotensive response to injection. Nondiagnostic EKG for ischemia. In recovery, pt treated with IVP Aminophylline 75 mg to reverse Lexiscan after which pt feeling back to baseline. Nuclear images pending. Test reviewed with dr. Rob. Referred By: Franco Chopra Electronically Signed By: Murali Alonzo
== END ==
LOC: HO.CARD 10:02
PROVIDERS: Visit Provider Internal Medicine Cardiovascular Disease
DX: Z01.810 Encounter for preprocedural cardiovascular examination (principal)
CPT/HCPCS: 78452; 93017; A9500; J0280; J2785

== ENCOUNTER → 2024-09-02 10:05 | Outpatient (BNV) | payer MEDICARE, SELFPAY | DX: Z01.810 Encounter for preprocedural cardiovascular examination (principal) | CPT/HCPCS: 78452; 93016; 93018 ==

== ENCOUNTER → 2024-10-04 23:59 | Outpatient (BNV) | payer MEDICARE, SELFPAY ==
--- NOTE | 2024-10-08 17:14 | MHC.OFFVIS ---
Intake Visit Reasons: Remote device check- Medtronic Allergies Seasonal Allergies Allergy (Mild, Verified 10/07/24 14:17) itching and sneezing PFSH Medical History Acute on chronic diastolic (congestive) heart failure History of cardioversion Arthritis Persistent atrial fibrillation Sick sinus syndrome Cardiac pacemaker in situ (HFpEF) heart failure with preserved ejection fraction Hypertension TIA (transient ischemic attack) Wears dentures Wears hearing aid in both ears Hx of cardiac pacemaker Degenerative joint disease Peripheral venous insufficiency Transient cerebral ischemia Hearing loss Retinal artery occlusion Obstructive sleep apnea Obesity (BMI 30-39.9) Surgical History H/O heart surgery History of right hip replacement Hx of tubal ligation Hx laparoscopic cholecystectomy History of esophagogastroduodenoscopy (EGD) Hx of colonoscopy Status post ORIF of fracture of ankle (~1984) History of cataract surgery (~2016) Social History Household Members: Spouse Housing: House Are you a primary palliative care nurse to a significant other at home: No Do you presently have visiting nurse or other home services: No Alcohol intake: never Patient Tobacco Use Status: Former Tobacco user Tobacco use type: Cigarette Years Smoked: 20 Smoked in Last 30 Days: No Use of substances other than those prescribed or required for medical reasons: No Advance Directives: Yes Advance Directives on File: Yes Advance Directives Date on File: 09/20/17 Do you have a plan to hurt others: No Plan service: No Current occupational status: retired Current occupation: right handed Office Procedures Cardiac Device Check Cardiac Device Check Details: Remote pacemaker report generated 10/04/2024. Pacemaker function is adequate. Persistent atrial fibrillation noted [id number] Cardiac Device Interrogation, pacemaker Procedure code (CPT) selection complete Assessment & Plan Assessment & Plan (1) Cardiac pacemaker in situ: Comment: Medtronic dual-chamber pacemaker Code(s): Z95.0 - Presence of cardiac pacemaker Category: Medical Plan: See above Coding Level of Care Code Procedure Only Diagnoses Cardiac pacemaker in situ Z95.0 CPT Codes Cardiac Device Check - Cardiac Device 12: [id number] Cardiac Device Interrogation, pacemaker ([id number])
== END ==
PROVIDERS: PCP Family Medicine; Visit Provider Internal Medicine Cardiovascular Disease
DX: I48.19 Other persistent atrial fibrillation (principal); Z95.0 Presence of cardiac pacemaker
CPT/HCPCS: 93294

== ENCOUNTER 2024-10-07 13:55 | Emergency (ER) | payer MEDICARE, SELFPAY ==
--- NOTE | ~2024-10-07 | CT_ITS ---
EXAMINATION: CT HEAD WITHOUT CONTRAST CLINICAL INFORMATION: Fall, anticoagulated COMPARISON: June 21, 2022 TECHNIQUE: Contiguous axial imaging was performed from the skull base to vertex without intravenous administration of contrast. This CT examination was performed using dose optimization techniques as appropriate, variously including the following: *Automated exposure control *Adjustment of mA and/or kV according to patient size (this includes techniques or standardized protocols for targeted exams where dose is matched to indication/reason for exam; i.e. extremities or head) *Use of iterative reconstruction technique DLP: 559 mGY*cm FINDINGS: There is no acute ischemic change. Periventricular white matter hypodensities are again noted. There is no intracranial hemorrhage. There is no mass-effect or midline shift. Basal cisterns and ventricles are within normal limits for age/cerebral volume. Orbits are symmetrical and unremarkable. Paranasal sinuses and mastoid air cells are pneumatized. There are no bony abnormalities. CT/CT head/brain wo IV con IMPRESSION: No acute intracranial abnormality. Chronic small vessel ischemic changes. Electronically signed by: Ildefonso Shay MD 10/07/2024 04:02 PM EDT
--- NOTE | ~2024-10-07 | XR_ITS ---
EXAMINATION: XR ANKLE, left CLINICAL INFORMATION: fall, land on L ankle COMPARISON: None available. TECHNIQUE: AP, lateral, and mortise views lower extremity joint, ankle. FINDINGS: Ankle mortise is congruent. There is no widening of the syndesmosis. However, there is bony bridging across the syndesmosis likely from a remote trauma. Talar dome is intact. There are small calcaneal enthesiophytes. There is a small curved cortical fragment at the inferior margin of the fibula. There is medial and lateral soft tissue swelling. XR/XR ankle LT min 3V IMPRESSION: Probable chronic changes. There is bony bridging across the syndesmosis likely from remote trauma. There is a small cortical fragment at the inferior tip of fibula could represent acute minimal avulsion fracture, though chronic change is not entirely excluded. Soft tissue swelling. Electronically signed by: Ildefonso Shay MD 10/07/2024 04:35 PM EDT
--- NOTE | ~2024-10-07 | XR_ITS ---
EXAMINATION: XR HIP, LEFT CLINICAL INFORMATION: fall land on L hip COMPARISON: July 31, 2024 TECHNIQUE: AP pelvis and AP and frog-leg lateral views of the left hip. FINDINGS: Numerous calcific lesions the pelvis likely are related to phleboliths. Total hip arthroplasty on the right is not completely imaged. There is severe axial joint space narrowing of the left hip joint. There are degenerative cystic changes and moderate osteophytes involving acetabulum and femoral head. There is appositional thickening of the upper medial femoral neck. The lateral view is severely limited by overlying soft tissues. 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 Electronically signed by: Ildefonso Shay MD 10/07/2024 04:40 PM EDT
--- NOTE | ~2024-10-07 | XR_ITS ---
EXAMINATION: XR KNEE, LEFT CLINICAL INFORMATION: fall, land on knee COMPARISON: None available. TECHNIQUE: Four views of the left knee. FINDINGS: No acute fracture, dislocation, or suspicious bone lesion. Normal alignment. Healed fracture of the proximal fibular metadiaphysis. There is very mild lateral compartment joint space narrowing. Medial and patellofemoral compartments appear preserved. Minimal spurring of the tibial spines. There is mild patella jonas. There is a moderate sized suprapatellar joint effusion. Normal soft tissues. XR/XR knee LT 2V IMPRESSION: 1. No definitive acute fracture or dislocation. 2. Moderate sized suprapatellar joint effusion. Electronically signed by: Sandro Alas MD 10/07/2024 04:30 PM EDT
--- NOTE | ~2024-10-07 | XR_ITS ---
EXAMINATION: XR CHEST CLINICAL INFORMATION: SOB COMPARISON: April 10, 2024 TECHNIQUE: Frontal view of the chest was obtained. FINDINGS: 2-lead pacemaker is unchanged. Cardiomegaly is unchanged. There is cephalization of pulmonary vasculature. Lungs are clear otherwise. XR/XR chest 1V IMPRESSION: Pulmonary vascular congestion and cardiomegaly with a 2-lead pacemaker. Electronically signed by: Ildefonso Shay MD 10/07/2024 04:36 PM EDT
[2024-10-07 14:08] VITALS: BP 129/49; BP 130/80; PULSE 100; PULSE 87; RESP 17; TEMP 36.5; O2SAT 95; O2SAT 96; BMI 40.2
--- NOTE | 2024-10-07 14:08 | ED.FALL ---
HPI - Fall General Chief Complaint: Extremity Injury, Lower Stated Complaint: FALL,SEVER ANKLE PAIN PER EMS Time Seen by Provider: 10/07/24 21:35 Source: patient Mode of arrival: EMS Limitations: no limitations History of Present Illness ED Provider: Celio Lindsey PA-C HPI Narrative: 83-year-old female with medical history of diastolic heart failure, AFib on Eliquis, pacemaker, HTN, TIA, obesity, KRANTHI, presents to the ED by ambulance after having a fall at home. Patient states she was standing in her kitchen when she took a step, and left hip ?gave out ?. Patient states she has frequent issues with left hip weakness due to osteoarthritis, has planned hip replacement with Dr. Lee in November. Patient states when she fell today she landed on her left knee, with her left ankle under her body weight. Patient states she did not have a head strike, no LOC, was not dizzy or lightheaded before the fall occurred. Denies chest pain, shortness of breath, nausea, vomiting, abdominal pain, headache, visual changes, lightheadedness, dizziness, black/tarry stool Related Data Home Medications ?Medication ?Instructions ?Recorded ?Confirmed apixaban 5 mg tablet (Eliquis) 5 mg PO BID 10/12/20 10/08/24 cholecalciferol (vitamin D3) 125 125 mcg PO DAILY 04/10/24 10/08/24 mcg (5,000 unit) tablet (Vitamin D3) vit C 250 mg-vit E 90 mg-zinc 40 1 tab PO BID 04/10/24 10/08/24 mg-copper 1 [id number] capsule (PreserVision AREDS-2) albuterol sulfate 90 mcg/actuation 2 puff inhalation DAILY PRN sob 07/21/24 10/08/24 aerosol inhaler empagliflozin 10 mg tablet 10 mg PO DAILY 10/08/24 10/08/24 (Jardiance) estradiol 0.01% (0.1 mg/gram) 1 appl vaginal MOSA 10/08/24 10/08/24 vaginal cream gabapentin 300 mg capsule 300 mg PO BID 10/08/24 10/08/24 Previous Rx's ?Medication ?Instructions ?Recorded metoprolol succinate 50 mg 50 mg PO BID 90 days #180 tabs 08/18/24 tablet,extended release 24 hr torsemide 10 mg tablet 10 mg PO DAILY #90 tabs 08/25/24 amiodarone 200 mg tablet 200 mg PO DAILY #90 tabs 09/15/24 Folding Front Wheeled walker #1 ea 09/19/24 Allergies Allergy/AdvReac Type Severity Reaction Status Date / Time Seasonal Allergies Allergy Mild itching Verified 10/07/24 14:17 and sneezing Review of Systems Review of Systems: CONST: Negative for fever, body aches and chills. HENT: Negative for neck pain/stiffness, headache, congestion, sore throat, swelling. EYES: Negative for discharge/pain or vision changes. RESP: Negative for cough/hemoptysis and shortness of breath. CV: Negative chest pain, difficulty breathing, palpitations. ABD: Negative pain, nausea, vomiting. : Negative increase frequency, dysuria, blood in urine or stool. MUSC: Negative for muscle aches, edema. POS L hip pain, L knee pain, L ankle pain SKIN: Negative rash, lesions/sores. NEURO: Negative headache, dizziness, weakness. Yes all other systems are reviewed and are negative PMFSH Past Medical History Attestation statement: The following information was validated with the patient. Source: old records reviewed and nursing notes reviewed Medical History Acute on chronic diastolic (congestive) heart failure History of cardioversion Arthritis Persistent atrial fibrillation Sick sinus syndrome Cardiac pacemaker in situ (HFpEF) heart failure with preserved ejection fraction Hypertension TIA (transient ischemic attack) Wears dentures Wears hearing aid in both ears Hx of cardiac pacemaker Degenerative joint disease Peripheral venous insufficiency Transient cerebral ischemia Hearing loss Retinal artery occlusion Obstructive sleep apnea Obesity (BMI 30-39.9) Surgical History H/O heart surgery History of right hip replacement Hx of tubal ligation Hx laparoscopic cholecystectomy History of esophagogastroduodenoscopy (EGD) Hx of colonoscopy Status post ORIF of fracture of ankle (~1984) History of cataract surgery (~2016) Social History Social History Household Members: Spouse Housing: House Are you a primary physician locums urgent care to a significant other at home: No Do you presently have visiting nurse or other home services: No Alcohol intake: never Patient Tobacco Use Status: Former Tobacco user Tobacco use type: Cigarette Years Smoked: 20 Smoked in Last 30 Days: No Use of substances other than those prescribed or required for medical reasons: No Advance Directives: Yes Advance Directives on File: Yes Advance Directives Date on File: 09/20/17 Do you have a plan to hurt others: No Plan service: No Current occupational status: retired Current occupation: right handed Physical Exam Vital Signs: Vital Signs: Last Vital Signs Temp 97.3 F 10/08/24 16:59 Pulse 96 10/08/24 16:59 Resp 18 10/08/24 16:59 BP 166/100 H 10/08/24 16:59 Pulse Ox 94 10/08/24 16:59 O2 Del Method Room Air 10/08/24 16:59 BMI result Body Mass Index 40.2 GENERAL APPEARANCE: ?AxOx4, no acute distress. HEENT: ?NC, AT. MMM. EOMI, clear conjunctiva, oropharynx clear. NECK: ?Supple without lymphadenopathy.? No stiffness or restricted ROM. HEART:? Irregular rate and rhythm, normal S1/S2, no m/r/g LUNGS:? CTAB, moving air well. No crackles or wheezes are heard. ABDOMEN: ?Soft, nontender, nondistended with good bowel sounds heard. BACK: No CVAT, no obvious deformity. EXTREMITIES: ?Without cyanosis, clubbing or edema. TTP of L hip, L patella, L ankle lateral malleolus TTP, with medial and lateral edema, without ecchymosis or bony abnormalities, Pedal pulses 2+ bilaterally, no calf tenderness. NEUROLOGICAL: ?Grossly nonfocal. Alert and oriented, moving all 4 extremities. Observed to ambulate with normal gait. Skin: ?Warm and dry without any rash. Medications Administered Discontinued Medications Generic Name Dose Route Start Last Admin Trade Name Freq PRN Reason Stop Dose Admin Acetaminophen 650 mg 10/08/24 12:08 10/08/24 12:21 Acetaminophen 325 Mg Tablet PO 10/08/24 12:09 650 mg ONCE ONE Administration Amiodarone HCl 200 mg 10/08/24 12:45 10/08/24 13:06 Amiodarone Hcl 200 Mg Tablet PO 200 mg DAILY TATIANA Administration Apixaban 5 mg 10/08/24 12:45 10/08/24 13:06 Apixaban 5 Mg Tablet PO 5 mg BID TATIANA Administration Empagliflozin 10 mg 10/08/24 12:45 10/08/24 13:06 Empagliflozin 10 Mg Tablet PO 10 mg DAILY TATIANA Administration Acetaminophen 1,000 mg in 100 mls @ 400 mls/hr 10/07/24 16:29 10/07/24 17:17 Ofirmev IV 10/07/24 16:43 Infused ONCE ONE Infusion Metoprolol Succinate 50 mg 10/08/24 12:45 10/08/24 13:06 Metoprolol Succinate Er 50 Mg Tab.Er.24h PO 50 mg BID TATIANA Administration Protocol Oxycodone HCl 5 mg 10/07/24 21:26 10/08/24 14:10 Oxycodone Hcl Immed Release 5 Mg Tablet PO 5 mg Q6H PRN Administration Pain, Severe (Pain Scale 7-10) Torsemide 10 mg 10/08/24 12:45 10/08/24 13:06 Torsemide 20 Mg Tablet PO 10 mg DAILY TATIANA Administration Protocol Medical Decision Making Medical Decision Making MDM Narrative: 3-year-old female with medical history of diastolic heart failure, AFib on Eliquis, pacemaker, HTN, TIA, obesity, KRANTHI, presents to the ED by ambulance after having a fall at home. Patient states she was standing in her kitchen when she took a step, and left hip ?gave out ?. Patient states she has frequent issues with left hip weakness due to osteoarthritis, has planned hip replacement with Dr. Lee in November. Patient states when she fell today she landed on her left knee, with her left ankle under her body weight. Patient states she did not have a head strike, no LOC, was not dizzy or lightheaded before the fall occurred. VSS, normotensive 129/49, pulse rate 87 beats per minute, respiratory rate 17, afebrile, O2 saturation 96% on room air. Physical exam reveals TTP of L hip, L patella, L ankle without ecchymosis or bony abnormalities, Pedal pulses 2+ bilaterally, no calf tenderness. Plan for labs, UA, CT head/brain, XR of chest, left hip, knee, ankle EKG reveals AFib, with left axis deviation, no ST elevation/depression, T-wave abnormalities 1st troponin 7.4, patient denied 2nd troponin to evaluate for positive delta. Patient medicated with 1 g IV Tylenol Course 21:00- labs reveal elevated BNP of 520, otherwise unremarkable. 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 Patient on Xarelto, not a good candidate for high dose NSAIDs for treatment of possible CPPD. XR L knee without acute fracture, dislocation does reveal moderate-sized joint effusion XR left ankle reveals medial and lateral soft tissue swelling, small cortical fragment at the inferior tip of fibula may represent avulsion fracture. Patient with pain to the lateral malleolus, unable to weightbear. Place patient in tall walking boot, trialed ambulation and department with walker, patient having extremely difficult time weight-bearing on left leg. Awaiting PT evaluation in the morning. Patient awaiting PT eval in a.m. 21:29- Patient states pain is returning, rates pain at as an 8/10. Patient states pain is radiating from hip to groin. Medicating with 5 mg oral oxycodone. Signing out patient to my colleague Dr. Doss to resume care of the patient, patient aware of this change. Patient in physician observation for case management needs. No acute events reported overnight.? No current issues or complaints. VS stable. Patient is pending placement at facility/pending PT/CM eval. Will continue to monitor. 21:40 10/07/2024 (Dr. Sonya Doss, D.O.) Assumed care from previous provider after a detailed discussion regarding patient's case.? [id number] evaluation has taken place with no new change in management.? Patient is awaiting PT/CM evaluation and final disposition. Time: 3:00PM Date: 10/08/24 Provider: JOSÉ MIGUEL Ly Discussed xrays with Veronica Gamboa PA-C, recommending f/u outpatient in 2 weeks. Advised to call office for appt. Physician observation ended at 3:00 PM. Pt will be d/c to [facility]. Differential Diagnosis Differential Diagnoses: The differential diagnosis associated with the presentation includes Left hip fracture Left knee fracture Left ankle fracture Left knee strain Left ankle strain Left ankle sprain Electrolyte abnormality Dysrhythmia Admission/Observation Consideration of admission/observation: Escalation of care including admission/observation considered Lab Data MDM Lab Attestation statement: I reviewed the patient's lab results. 10/07/24 15:02 10/07/24 15:02 Labs: Lab Results 10/07/24 10/07/24 10/08/24 Range/Units 15:02 22:02 09:45 WBC 5.8 (4.8-10.8) X10*3/uL RBC 4.79 (4.20-5.50) X10*6/uL Hgb 15.6 (12.0-16.0) g/dl Hct 46.5 (37.0-47.0) % MCV 97.1 (80.0-98.0) fL MCH 32.6 (27.0-33.0) pg MCHC 33.5 (31.0-35.0) g/dl RDW 13.4 (11.0-16.0) % Plt Count 163 (160-400) X10*3/uL MPV 10.1 (9.4-12.3) fL Immature Gran % (Auto) 0.2 (0.0-0.4) % Neut % (Auto) 64.1 (45-73) % Lymph % (Auto) 22.7 (20-40) % [place] % (Auto) 10.4 (2-11) % Eos % (Auto) 2.1 (0-4) % Baso % (Auto) 0.5 (0-2) % Lymph # (Auto) 1.3 (1.2-4.9) X10*3/uL [place] # (Auto) 0.6 (0.1-1.2) X10*3/uL Eos # (Auto) 0.1 (0.0-0.4) X10*3/uL Baso # (Auto) 0.0 (0.0-0.2) X10*3/uL Abs Immat Gran (auto) 0.01 (0.00-0.03) X10*3/uL Absolute Neuts (auto) 3.7 (2.0-8.3) x10*3/uL Absolute Nucleated RBC 0.000 (0.0-0.012) X10*3/uL Nucleated RBC % (auto) 0.0 (0.0-0.2) /100WBC PT 18.2 H (10.9-12.4) SEC INR 1.6 H (0.9-1.1) Sodium 142 (135-145) mmol/L Potassium 4.8 (3.3-5.1) mmol/L Chloride 104 (96-108) mmol/L Carbon Dioxide 29 (22-29) mmol/L Anion Gap 14 (12-20) BUN 35 H (9-16) mg/dL Creatinine 1.14 (0.5-1.4) mg/dL Estim Creat Clear Calc 45.2 Estimated GFR 46 Random Glucose 120 H (60-115) mg/dL Calcium 8.8 D (8.4-10.2) mg/dL Magnesium 2.4 (1.6-2.6) mg/dL Total Bilirubin 0.7 (0.0-1.0) mg/dL AST 30 (5-31) U/L ALT 21 (0-31) U/L Alkaline Phosphatase 97 (39-117) U/L Troponin I High Sens 7.4 D 12.4 D (<3.5-17.0) ng/L B-Natriuretic Peptide 520 H (<100) pg/mL Total Protein 6.9 (6.5-8.0) g/dL Albumin 3.7 (3.5-5.0) g/dL Urine Color Urine Appearance Urine pH (5.0-9.0) Ur Specific [place] (1.005-1.025) Urine Protein (Neg-Trace) mg/dL Urine Glucose (UA) (Negative) mg/dL Urine Ketones (Negative) mg/dL Urine Blood (Negative) Urine Nitrite (Negative) Ur Leukocyte Esterase (Negative) Urine RBC (0-2) /HPF Urine WBC (0-5) /HPF Ur Squamous Epith Cells (0-2) /HPF Urine Bacteria (None Seen) Hyaline Casts (0-2) /LPF Influenza Type A (PCR) NEGATIVE (Negative) Influenza Type B (PCR) NEGATIVE (Negative) RSV RNA Qual (PCR) NEGATIVE (Negative) SARS-CoV-2 RNA (RT-PCR) NEGATIVE (Negative) 10/08/24 Range/Units 12:28 WBC (4.8-10.8) X10*3/uL RBC (4.20-5.50) X10*6/uL Hgb (12.0-16.0) g/dl Hct (37.0-47.0) % MCV (80.0-98.0) fL MCH (27.0-33.0) pg MCHC (31.0-35.0) g/dl RDW (11.0-16.0) % Plt Count (160-400) X10*3/uL MPV (9.4-12.3) fL Immature Gran % (Auto) (0.0-0.4) % Neut % (Auto) (45-73) % Lymph % (Auto) (20-40) % [place] % (Auto) (2-11) % Eos % (Auto) (0-4) % Baso % (Auto) (0-2) % Lymph # (Auto) (1.2-4.9) X10*3/uL [place] # (Auto) (0.1-1.2) X10*3/uL Eos # (Auto) (0.0-0.4) X10*3/uL Baso # (Auto) (0.0-0.2) X10*3/uL Abs Immat Gran (auto) (0.00-0.03) X10*3/uL Absolute Neuts (auto) (2.0-8.3) x10*3/uL Absolute Nucleated RBC (0.0-0.012) X10*3/uL Nucleated RBC % (auto) (0.0-0.2) /100WBC PT (10.9-12.4) SEC INR (0.9-1.1) Sodium (135-145) mmol/L Potassium (3.3-5.1) mmol/L Chloride (96-108) mmol/L Carbon Dioxide (22-29) mmol/L Anion Gap (12-20) BUN (9-16) mg/dL Creatinine (0.5-1.4) mg/dL Estim Creat Clear Calc Estimated GFR Random Glucose (60-115) mg/dL Calcium (8.4-10.2) mg/dL Magnesium (1.6-2.6) mg/dL Total Bilirubin (0.0-1.0) mg/dL AST (5-31) U/L ALT (0-31) U/L Alkaline Phosphatase (39-117) U/L Troponin I High Sens (<3.5-17.0) ng/L B-Natriuretic Peptide (<100) pg/mL Total Protein (6.5-8.0) g/dL Albumin (3.5-5.0) g/dL Urine Color Yellow Urine Appearance Clear Urine pH 7.5 (5.0-9.0) Ur Specific [place] 1.020 (1.005-1.025) Urine Protein Negative (Neg-Trace) mg/dL Urine Glucose (UA) >=1000 H (Negative) mg/dL Urine Ketones Negative (Negative) mg/dL Urine Blood Negative (Negative) Urine Nitrite Negative (Negative) Ur Leukocyte Esterase Negative (Negative) Urine RBC 0-2 (0-2) /HPF Urine WBC 0-5 (0-5) /HPF Ur Squamous Epith Cells 0-2 (0-2) /HPF Urine Bacteria None Seen (None Seen) Hyaline Casts 0-2 (0-2) /LPF Influenza Type A (PCR) (Negative) Influenza Type B (PCR) (Negative) RSV RNA Qual (PCR) (Negative) SARS-CoV-2 RNA (RT-PCR) (Negative) Independent Interpretation I performed an independent interpretation of an: EKG and Plain X-Ray Interpretation: I personally interpreted the EKG which reveals AFib without RVR Vent. Rate : 89 BPM Atrial Rate : * BPM P-R Int : * ms QRS Dur : 98 ms QT Int : 424 ms P-R-T Axes : * -39 85 degrees QTcB Int : 515 ms Atrial fibrillation with ventricular escape complexes Left axis deviation Incomplete right bundle branch block Cannot rule out Anterior infarct , age undetermined Abnormal ECG When compared with ECG of 21-Jul-2024 11:47, Atrial fibrillation has replaced Electronic ventricular pacemaker I personally interpreted the CT head brain, which did not reveal any acute intracranial abnormalities, I agree with the radiologist's impression. I personally interpreted the CXR, which reveals cardiomegaly, dual lead pacemaker, does not reveal pulmonary effusion, infiltrates, I agree with the radiologist's impression I personally interpreted the L knee x-ray which does not reveal acute fracture or dislocation I agree with the radiologist's impression I personally interpreted the L hip x-ray which does not reveal acute fracture or dislocation, I agree with the radiologist's impression I personally interpreted the left ankle x-ray which reveals abnormality of the distal fibula. Radiology Impression Discussion of test interpretation with radiology: I have reviewed the radiologist's reading. Radiologist Impression: CXR FINDINGS: 2-lead pacemaker is unchanged. Cardiomegaly is unchanged. There is cephalization of pulmonary vasculature. Lungs are clear otherwise. XR/XR chest 1V IMPRESSION: Pulmonary vascular congestion and cardiomegaly with a 2-lead pacemaker. Electronically signed by: Ildefonso Shay MD 10/07/2024 04:36 PM EDT RP Dictated By: Ildefonso Shay MD Signed By: <Electronically signed by Ildefonso Shay MD in OV> 10/07/[address] head/brain FINDINGS: There is no acute ischemic change. Periventricular white matter hypodensities are again noted. There is no intracranial hemorrhage. There is no mass-effect or midline shift. Basal cisterns and ventricles are within normal limits for age/cerebral volume. Orbits are symmetrical and unremarkable. Paranasal sinuses and mastoid air cells are pneumatized. There are no bony abnormalities. CT/CT head/brain wo IV con IMPRESSION: No acute intracranial abnormality. Chronic small vessel ischemic changes. Electronically signed by: Ildefonso Shay MD 10/07/2024 04:02 PM EDT RP Dictated By: Ildefonso Shay MD Signed By: <Electronically signed by Ildefonso Shay MD in OV> 10/07/24 1602 XR L hip FINDINGS: Numerous calcific lesions the pelvis likely are related to phleboliths. Total hip arthroplasty on the right is not completely imaged. There is severe axial joint space narrowing of the left hip joint. There are degenerative cystic changes and moderate osteophytes involving acetabulum and femoral head. There is appositional thickening of the upper medial femoral neck. The lateral view is severely limited by overlying soft tissues. 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 Electronically signed by: Ildefonso Shay MD 10/07/2024 04:40 PM EDT RP Dictated By: Ildefonso Shay MD Signed By: <Electronically signed by Ildefonso Shay MD in [place]> 10/07/24 1640 XR L knee FINDINGS: No acute fracture, dislocation, or suspicious bone lesion. Normal alignment. Healed fracture of the proximal fibular metadiaphysis. There is very mild lateral compartment joint space narrowing. Medial and patellofemoral compartments appear preserved. Minimal spurring of the tibial spines. There is mild patella jonas. There is a moderate sized suprapatellar joint effusion. Normal soft tissues. XR/XR knee LT 2V IMPRESSION: 1. No definitive acute fracture or dislocation. 2. Moderate sized suprapatellar joint effusion. Electronically signed by: Sandro Alas MD 10/07/2024 04:30 PM EDT RP Dictated By: Sandro Alas MD Signed By: <Electronically signed by Sandro Alas MD in [place]> 10/07/24 1630 XR L ankle FINDINGS: Ankle mortise is congruent. There is no widening of the syndesmosis. However, there is bony bridging across the syndesmosis likely from a remote trauma. Talar dome is intact. There are small calcaneal enthesiophytes. There is a small curved cortical fragment at the inferior margin of the fibula. There is medial and lateral soft tissue swelling. XR/XR ankle LT min 3V IMPRESSION: Probable chronic changes. There is bony bridging across the syndesmosis likely from remote trauma. There is a small cortical fragment at the inferior tip of fibula could represent acute minimal avulsion fracture, though chronic change is not entirely excluded. Soft tissue swelling. Electronically signed by: Ildefonso Shay MD 10/07/2024 04:35 PM EDT RP Dictated By: Ildefonso Shay MD Signed By: <Electronically signed by Ildefonso Shay MD in [place]> 10/07/24 1635 Independent Historian Clinical information obtained from an independent historian. History obtained from or confirmed by: Spouse ( at bedside corroborating history) External Record Review External record reviewed: Inpatient record, Office record and Outpatient record Prescription Management I considered prescription management with: Other (NSAIDs) I contemplated high-dose NSAIDs for CPPD arthropathy, patient is not a candidate for NSAIDs as she is on Xarelto. Chronic Conditions Patient?s care impacted by: Hypertension and Other (AFib on Eliquis, osteoarthritis,) Discharge Plan Discharge Clinical Impression: Avulsion fracture of ankle Patient Disposition: Xfer Inpatient Rehab Fac Transfer Details: [facility] Additional Instructions: You were seen in the emergency department and you were found to have an ankle fracture. Please keep your foot in the walking boot when ambulatory. Rest, ice, and elevate. Please call the orthopedic office to follow-up. They would like for you to follow-up in the next 2 weeks. Call to make an appointment. Take Tylenol as needed for pain and symptoms. If any new or worsening symptoms occur including but not limited to worsening pain, severe chest pain or shortness of breath, please seek emergent care. Prescriptions: No Action torsemide 10 mg tablet 10 mg PO DAILY Qty: 90 3RF Protocol: Hold for SBP< HOLD for SBP < : 90 amiodarone 200 mg tablet 200 mg PO DAILY Qty: 90 2RF (DME) Folding Front Wheeled walker See Rx Instructions .ROUTE .MEDSUPPLY Qty: 1 0RF Rx Instructions: Duration: 99 days albuterol sulfate 90 mcg/actuation HFA aerosol inhaler 2 puff inhalation DAILY PRN (Reason: sob) gabapentin 300 mg capsule 300 mg PO BID Jardiance 10 mg tablet 10 mg PO DAILY estradiol 0.01 % (0.1 mg/gram) cream 1 appl vaginal MOSA cholecalciferol (vitamin D3) [Vitamin D3] 125 mcg (5,000 unit) Tablet 125 mcg PO DAILY PreserVision AREDS-2 250-90-40-1 mg Capsule 1 tab PO BID Eliquis 5 mg tablet 5 mg PO BID metoprolol succinate 50 mg tablet extended release 24 hr 50 mg PO BID 90 Days Qty: 180 3RF Referrals: [facility] [Other] [facility] [Provider Group] Casa Lee MD [Physician, Orthopedics] Mert Fernández MD [Primary Care Provider, Family Practice] Interventions: ED Discharge Assessment Last Done: 10/08/24 16:59 Discharge Date/Time: 10/08/24 17:00 Print Language: Danish
--- NOTE | 2024-10-07 14:11 | ECG_ITS ---
Test Reason : WEAKNESS Blood Pressure : */* mmHG Vent. Rate : 89 BPM Atrial Rate : * BPM P-R Int : * ms QRS Dur : 98 ms QT Int : 424 ms P-R-T Axes : * -39 85 degrees QTcB Int : 515 ms Atrial fibrillation with ventricular escape complexes Left axis deviation Incomplete right bundle branch block Cannot rule out Anterior infarct , age undetermined Abnormal ECG When compared with ECG of 21-Jul-2024 11:47, Atrial fibrillation has replaced Electronic ventricular pacemaker Referred By: César Pickens Electronically Signed By: ELIZA CARLISLE MD
[2024-10-07 14:18] VITALS: BP 129/49; PULSE 87; RESP 17; TEMP 36.5; O2SAT 96
[2024-10-07 15:06] LABS: MANUAL DIFF FLAG NO
[2024-10-07 15:07] LABS: Hematocrit 46.5 % (37.0-47.0); Hemoglobin 15.6 g/dl (12.0-16.0); Imm Gran Abs Auto 0.01 X10*3/uL (0.00-0.03); Imm Gran Pct Auto 0.2 % (0.0-0.4); Lymphocytes Absolute Auto 1.3 X10*3/uL (1.2-4.9); Mean Corpuscular HGB Conc 33.5 g/dl (31.0-35.0); Mean Corpuscular Hemoglobin 32.6 pg (27.0-33.0); Mean Corpuscular Volume 97.1 fL (80.0-98.0); NRBC Abs Auto 0.000 X10*3/uL (0.0-0.012); NRBC Pct Auto 0.0 /100WBC (0.0-0.2); Platelet Count 163 X10*3/uL (160-400); Red Blood Count 4.79 X10*6/uL (4.20-5.50); White Blood Count 5.8 X10*3/uL (4.8-10.8)
[2024-10-07 15:16] LABS: INTERNATIONAL NORM RATIO 1.6 (0.9-1.1); Prothrombin Time 18.2 SEC (10.9-12.4)
[2024-10-07 15:21] LABS: Alanine Aminotransferase 21 U/L (0-31); Albumin Level 3.7 g/dL (3.5-5.0); Alkaline Phosphatase 97 U/L (39-117); Anion Gap 14 (12-20); Aspartate Amino Transferase 30 U/L (5-31); Blood Urea Nitrogen 35 mg/dL (9-16); Calcium 8.8 mg/dL (8.4-10.2); Carbon Dioxide 29 mmol/L (22-29); Chloride 104 mmol/L (96-108); Creatinine Clr Calc Pharmacy 45.2; Estimated Glomerular Filt Rate 46; Magnesium 2.4 mg/dL (1.6-2.6); Potassium 4.8 mmol/L (3.3-5.1); Sodium 142 mmol/L (135-145); Total Protein 6.9 g/dL (6.5-8.0)
[2024-10-07 15:27] LABS: B Type Natriuretic Peptide 520 pg/mL (<100)
[2024-10-07 15:28] LABS: Troponin-I High Sensitivity 7.4 ng/L (<3.5-17.0)
--- OUTSIDE RECORDS SUMMARY | 2024-10-07 15:30 | XMS_ITS | Encounter Summary ---
Author Organization [facility] Address [address] [place] [id number] Phone Care Team Providers Care Senior Quality Manager Name Role Phone Benny Fairchild MD Unavailable [phone] Ambreen Little MD Unavailable Mert Dumont MD Primary Care Prov ider Reason for Referral * Physical Therapy (Routine) - Closed Specialty Diagnoses / Procedures Referred By Conttea t Referred To Contact Physical Therapy Diagnoses Dizziness and giddiness Mert Dumont MD Phone: tel: fax: mailto:yo [email or web address] [address] [address] Phone: tel: Referral ID Status Reason Start Date Expiration Date Visits Re quested Visits Authorized [id number] Closed 05/15/2017 03/11/2018 99 [phone] Encounter Details Date Type Department Care Team (Late st Contact Info) Description 05/15/2017 Transcribe Orders [facility] [address] [place] [phone] Mert Dumont MD [address] [place] [address] [phone] [email or web address] Dizziness and giddiness (Primary Dx) Social History Tobacco Use Types Packs/Day Years Used Date Smoking Tobacco: Never Assessed Comments Unknown Sex and Gender Information Value Date Recorded Sex Assigned at Female 06/28/2017 3:51 PM EDT Legal Sex Female 10:11 PM EDT Gender Identity Female 06/28/2017 3:51 PM EDT Sexual Orientation Straight 06/28/2017 3: 51 PM EDT documented as of this encounter Plan of Treatment Scheduled Referrals Name Type Priority Associated Diagnoses Order Schedule Ambulatory referral to [facility] Physical Therapy Outpatient Referral Routine Dizziness and giddiness Ordered: 05/15/2017 documented as of this encounter Visit Diagnoses Diagnosis Dizziness and giddiness- Primary documented in this encounter Care Teams Senior Quality Manager Relationship Specialty Start Date End Date Mert Dumont MD [facility] [place] [address] [email or web address] PCP - General Family Medicine 05/15/17 Benny Fairchild MD [address] [place] [id number] Historical LMR Provider 12/27/16 2 Ambreen Little MD [address] [place] [address] Historical LMR Provider 12/27/16 2 documented as of this encounter Additional Source Comments The information contained in this document represents components of the legal health record. It is not the complete legal health record.[facility]
--- NOTE | 2024-10-07 20:14 | MHC.CM.ED ---
Addendum entered by Silvia Chambers 10/07/24 20:23: HCP and MOLST are on file. HCP/ Tae Rutledge ([phone]). MOLST-patient is a full code. Original Note: CM met with patient and her with regards to discharge planning. Staff attempted to ambulate patient with boot on L foot for fx ankle and using a walker. Pt is weight bearing as tolerated. Pt was slow and slightly unsteady. Pt had 1 assist. Pt needed some assistance getting up from bed to stand. Pt initially wanted to discharge home, however, patient has 3 stairs into home. Pt is now agreeable to PT evaluation in the morning. She is asking for pain medication. She does not have a qualifying stay. Will place acute referrals. Pt is unsure about home PT and cannot private pay for STR. Pt lives with her , uses a rollator and has a cane.PCP, address and insurance are verified. Pt tells CM that she is having a planned L hip replacement by Dr. Lee in November. CM will follow for discharge planning
[2024-10-07] MEDS: oxyCODONE HCl Immed Release 5 MG TABLET PO (21:41)
[2024-10-07 22:36] LABS: Troponin-I High Sensitivity 12.4 ng/L (<3.5-17.0)
[2024-10-08] VITALS (7 sets, daily range): BP systolic 120–166; BP diastolic 56–100; PULSE 61–96; RESP 14–18; TEMP 36.3–36.4; O2SAT 93–96
--- NOTE | 2024-10-08 00:39 | MHC.EDTECH ---
Purewick placed on patient, dulce care was provided prior to placement.
[2024-10-08] MEDS: oxyCODONE HCl Immed Release 5 MG TABLET PO ×2 (06:46→14:10)
[2024-10-08 10:28] LABS: Resp Syncy Virus RNA Qual PCR NEGATIVE (Negative); SARS COV2 PCR INHOUSE NEGATIVE (Negative)
--- NOTE | 2024-10-08 10:44 | MHC.CM.ED ---
Patient remains in ER. Physical therapy eval completed. Acute rehab is recommended. [facility] not able to offer a bed. Clinical updates sent to Mark. Continue to monitor for d/c needs.
[2024-10-08 12:34] LABS: Appearance Urine Clear; Glucose Urine UA >=1000 mg/dL (Negative); PH 7.5 (5.0-9.0); Specific Gravity - Urine 1.020 (1.005-1.025); UMIC TRIGGER UACC YES
[2024-10-08] MEDS: Metoprolol Succinate ER 50 MG TAB.ER.24H PO (13:06)
--- NOTE | 2024-10-08 13:41 | PHA.MEDREC ---
Addendum entered by Abel Gibbs RPh 10/08/24 13:45: MED REC REVIEWED BY [facility] Original Note: Pharmacy Consult ? Medication Reconciliation Pharmacy has reviewed the medication reconciliation done by nursing. Spoke to patient and she confirmed all her medications. Patient confirmed Estradiol vag crean Sunday and Sunday Patient last had her medications yesterday morning.
--- NOTE | 2024-10-08 14:05 | MHC.CM.ED ---
Received notification from [facility] VALDEZ, that ortho recommends outpatient follow up after 2 weeks. Bairon and Yao made aware. Will upload updated ER provider notes as soon as they're available. Continue to monitor for d/c needs.
--- NOTE | 2024-10-08 15:25 | MHC.CM.ED ---
[facility] is able to offer a bed. Patient is agreeable. Fidelina BARNEY booked for 430pm. Med nec with chart. Patient, Fabiana HOLLOWAY and Pric[facility] VALDEZ aware. Continue to monitor for d/c needs.
== END 2024-10-08 17:00 ==
PROVIDERS: Physician Assistant Medical; Emergency Provider Emergency Medicine; PCP Family Medicine
DX: S82.892A Other fracture of left lower leg, initial encounter for closed fracture (principal); W01.0XXA Fall on same level from slipping, tripping and stumbling without subsequent striking against object, initial encounter; M25.571 Pain in right ankle and joints of right foot; M16.12 Unilateral primary osteoarthritis, left hip; M25.562 Pain in left knee; M25.462 Effusion, left knee; Z03.818 Encounter for observation for suspected exposure to other biological agents ruled out; I10 Essential (primary) hypertension; I48.91 Unspecified atrial fibrillation; Z95.0 Presence of cardiac pacemaker; Z87.891 Personal history of nicotine dependence; Z79.01 Long term (current) use of anticoagulants; Z79.899 Other long term (current) drug therapy; Y93.89 Activity, other specified; Y92.019 Unspecified place in single-family (private) house as the place of occurrence of the external cause; Y99.9 Unspecified external cause status
CPT/HCPCS: 36415; 70450; 71045; 73502; 73560; 73610; 80053; 81001; 83735; 83880; 84484; 85025; 85610; 87637; 93005; 96365; 97162; 99285; J0131

== ENCOUNTER → 2024-10-07 14:08 | Outpatient (BNV) | payer MEDICARE, SELFPAY | PROVIDERS: Emergency Provider Emergency Medicine; PCP Family Medicine; Visit Provider Radiology Diagnostic Radiology | DX: M25.462 Effusion, left knee (principal) | CPT/HCPCS: 73560 ==

== ENCOUNTER → 2024-10-07 14:11 | Outpatient (BNV) | payer MEDICARE, SELFPAY | PROVIDERS: Emergency Provider Emergency Medicine; PCP Family Medicine; Visit Provider Internal Medicine Cardiovascular Disease | DX: I48.91 Unspecified atrial fibrillation (principal); I45.10 Unspecified right bundle-branch block | CPT/HCPCS: 93010 ==

== ENCOUNTER 2024-10-20 | Outpatient (REF) | payer MEDICARE, SELFPAY ==
--- OUTSIDE RECORDS SUMMARY | 2020-05-30 09:50 | XMS_ITS | Encounter Summary ---
Author Organization [facility] Address [address] [employer] [facility] [address] [place] [address] Phone Care Team Providers Care Riding Double Name Role Phone Benny Fairchild MD Unavailable [phone] Ambreen Little MD Unavailable Mert Dumont MD Primary Care Prov ider Encounter Details Date Type Department Care Team (Late st Contact Info) Description 05/30/2020 9:50 AM EDT Hospital Encounter [facility] [address] [place] [address] [phone] Josie Otero, DROP BOARD MAN [address] [place] [address] [email or web address] Social History Tobacco Use Types Packs/Day Years Used Date Smoking Tobacco: Former Cigarettes 1 40 1 128 - 1998 Smokeless Tobacco: Never Alcohol Use Standard Drinks/Week Comments Yes 0 (1 standard drink = 0.6 oz pur e alcohol) socially Education Answer Date Recorded Are you interested in more education? Not on savannah e 07/07/2022 Are you concerned about learning? Not on file 07/07/2022 No 07/07/2022 No 07/07/2022 Digital Access Answer Date Recorded No 08/07/2022 No 08/07/2022 Reliable internet access at home? Not on file 08/07/2022 Device with a working camera? 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 Not on file Not on savannah e documented as of this encounter Plan of Treatment Not on file documented as of this encounter Procedures Procedure Name Priority Date/Time Associated Diagnosis Comments XR TIBIA FIBULA 2 VIEWS (RIGHT) Urgent/patient waiting 05/30/2020 10:10 AM EDT Pain of right lower extremity documented in this encounter Results * XR Tibia Fibula 2 Views (Right) (05/30/2020 10:10 AM EDT) Anatomical Region Laterality Modality Leg Right Computed Radiogr aphy 05/30/2020 10:1 3 AM EDT Impressions 05/30/2020 10:15 AM EDT There is a minimally displaced fracture of the proximal fibula (fibular neck). No other acute fracture is dislocation of the left foot. Visualized left knee appears grossly intact. Ankle mortise is maintained. Degenerative changes of the distal tibiofibular joint. Laterally projecting bony outgrowth arising from the distal tibia along syndesmosis likely degenerative. Narrative 05/30/2020 10:15 AM EDT TECHNIQUE: XR TIBIA FIBULA 2 VIEWS (RIGHT) COMPARISON: None Procedure Note Ovi Bennett MD - 05/30/2020 TECHNIQUE: XR TIBIA FIBULA 2 VIEWS (RIGHT) COMPARISON: None IMPRESSION: There is a minimally displaced fracture of the proximal fibula (fibularneck). No other acute fracture is dislocation of the left foot. Visualizedleft knee appears grossly intact. Ankle mortise is maintained.Degenerative changes of the distal tibiofibular joint. Laterallyprojecting bony outgrowth arising from the distal tibia along syndesmosislikely degenerative. Josie Pendletonuld DROP BOARD MAN IMG XR LOWER EXTREMITY Final Result documented in this encounter Visit Diagnoses Not on filedocumented in this encounter Care Teams Riding Double Relationship Specialty Start Date End Date Mert Dumont MD [address] [place] [address] PCP - General Family Medicine 05/15/17 Benny Fairchild MD [address] [place] [address] Historical LMR Provider 12/27/16 2 Ambreen Little MD [facility]3 [place] [address] Historical LMR Provider 12/27/16 2 documented as of this encounter Additional Source Comments The information contained in this document represents components of the legal health record. It is not the complete legal health record.[facility]
--- OUTSIDE RECORDS SUMMARY | 2020-05-30 09:55 | XMS_ITS | Encounter Summary ---
Author Organization [facility] Address [address] [employer] [facility] [address] [place] [phone] Phone Care Team Providers Care Card Hand Name Role Phone Benny Fairchild MD Unavailable [phone] Ambreen Little MD Unavailable Mert Dumont MD Primary Care Prov ider Encounter Details Date Type Department Care Team (Late st Contact Info) Description 05/30/2020 9:55 AM EDT Hospital Encounter 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 Josie Otero TRAVEL MANAGER IMG XR LOWER EXTREMITY Final Result documented in this encounter Visit Diagnoses Not on filedocumented in this encounter Care Teams Card Hand Relationship Specialty Start Date End Date Mert Dumont MD [address] [place] [address] [email or web address] PCP - General Family Medicine 05/15/17 Benny Fairchild MD [address] [place] [address] Historical LMR Provider 12/27/16 2 Ambreen Little MD [address] [place] [address] Historical LMR Provider 12/27/16 2 documented as of this encounter Additional Source Comments The information contained in this document represents components of the legal health record. It is not the complete legal health record.[facility]
[2024-10-20 12:18] VITALS: BP 132/62; PULSE 66; RESP 17; O2SAT 96; BMI 39.3
--- NOTE | 2024-10-20 12:37 | HO.ANESPROP2 ---
HPI - Anesthesia Eval Consult details Narrative: *postponed due to needing ablation prior to surgery 84 yr old female for left total hip, seen in PAT. No recent illness. No CP, +SOB with walking. Denies pulmonary hx, but has albuterol inhaler for prn use, up to once per week. Walks around grocery store, uses cane, walker, occasionally uses scooter. Seen at [facility] end of September for fall, sustained left ankle fracture, in walking boot, broken toes right foot, ?left heel wounds; has appt with ortho 10/20/24. Persistent atrial fibrillation: currently asymptomatic, cardioversions unsuccessful, will have ablation post hip surgery per work load note from Dr. Chopra, given okay to wait on ablation. Dual-chamber pacemaker: check done 08/2024 CHF: on diuretic, echo done 03/2024 (*see below). KRANTHI: not using CPAP. Anesthesia Pre-Procedure Meds Is the patient on any of the following meds?: SGLT2 Inhib PMFSH Active Problems Active Problems: All Active Problems Preoperative cardiovascular examination (Acute) Primary osteoarthritis of left hip (Acute) Atrial flutter (Acute) Decompensated heart failure (Acute) Wound of left leg (Acute) Abscess (Acute) Paroxysmal atrial fibrillation (Acute) Bursitis of right shoulder (Acute) Impingement syndrome of right shoulder (Acute) S/P total hip arthroplasty (Acute) Osteoarthritis of right hip (Acute) Bilateral hip joint arthritis (Acute) Acute on chronic diastolic (congestive) heart failure (Acute) History of cardioversion (Acute) Cardiac pacemaker in situ (Acute) Hypertension (Acute) (HFpEF) heart failure with preserved ejection fraction (Acute) Past Medical History Medical History (Updated 10/20/24 @ 13:45 by Ariana Allen PA-C) Spinal stenosis SOB (shortness of breath) Atrial fibrillation Foot fracture, left (~10/07/24) Acute on chronic diastolic (congestive) heart failure History of cardioversion Arthritis Persistent atrial fibrillation Sick sinus syndrome Cardiac pacemaker in situ (HFpEF) heart failure with preserved ejection fraction Hypertension TIA (transient ischemic attack) Wears dentures Wears hearing aid in both ears Hx of cardiac pacemaker Degenerative joint disease Peripheral venous insufficiency Transient cerebral ischemia Hearing loss Retinal artery occlusion Obstructive sleep apnea Obesity (BMI 30-39.9) Family History Family history of problems with anesthesia: No Surgical History Surgical History H/O heart surgery History of right hip replacement Hx of tubal ligation Hx laparoscopic cholecystectomy History of esophagogastroduodenoscopy (EGD) Hx of colonoscopy Status post ORIF of fracture of ankle (~1984) History of cataract surgery (~2016) History of Problems with Anesthesia: No Social History Social History Household Members: Spouse Housing: House Are you a primary daycare assistant to a significant other at home: No Do you presently have visiting nurse or other home services: No Alcohol intake: never Patient Tobacco Use Status: Former Tobacco user Tobacco use type: Cigarette Years Smoked: 20 Use of substances other than those prescribed or required for medical reasons: No Have you been hit, kicked, punched, or otherwise hurt by someone within the past year? If so, by whom?: No Are you DNR?: No Advance Directives: Yes Advance Directives Information Provided: No Advance Directives on File: Yes Advance Directives Date on File: 09/20/17 Patient : No : No service: No Current occupational status: retired Current occupation: right handed Meds Allergies Allergy/AdvReac Type Severity Reaction Status Date / Time Seasonal Allergies Allergy Mild itching Verified 11/13/24 11:30 and sneezing Home Medications ?Medication ?Instructions ?Recorded ?Confirmed ?Last Taken ?Type apixaban 5 mg tablet (Eliquis) 5 mg PO BID 10/12/20 11/13/24 07/21/24 History cholecalciferol (vitamin D3) 125 125 mcg PO DAILY 04/10/24 11/13/24 07/21/24 History mcg (5,000 unit) tablet (Vitamin D3) vit C 250 mg-vit E 90 mg-zinc 40 1 tab PO BID 04/10/24 11/13/24 10/07/24 History mg-copper 1 [id number] capsule (PreserVision AREDS-2) empagliflozin 10 mg tablet 10 mg PO DAILY 10/08/24 11/13/24 Unknown History (Jardiance) gabapentin 300 mg capsule 300 mg PO BID 10/08/24 11/13/24 Unknown History acetaminophen 650 mg 1,300 mg PO Q8-10H PRN Pain 10/20/24 11/13/24 Unknown History tablet,extended release albuterol sulfate 90 mcg/actuation 1 inh inhalation Q6-8H PRN 10/20/24 11/13/24 Unknown History aerosol inhaler Shortness Of Breath Or Wheezing metoprolol succinate 50 mg 50 mg PO BEDTIME 10/20/24 11/13/24 Unknown History tablet,extended release 24 hr Exam Height,Weight and Vital Signs: Height 5 ft 4 in Weight 103.873 kg Last Vital Signs Pulse 66 10/20/24 12:18 Resp 17 10/20/24 12:18 BP 132/62 10/20/24 12:18 Pulse Ox 96 10/20/24 12:18 O2 Del Method Room Air 10/20/24 12:18 Pertinent Lab Results Pertinent Lab Results: Laboratory Tests 10/07/24 15:02 WBC 5.8 RBC 4.79 Hgb 15.6 Hct 46.5 Plt Count 163 Sodium 142 Potassium 4.8 BUN 35 H Creatinine 1.14 Narrative Narrative: ECHO 03/2024 Left ventricular systolic function is normal. EF is 55%. No obvious valvular pathology seen on this study. Nuclear stress test 08/2024 Myocardial perfusion imaging study shows normal myocardial perfusion. Gated LVEF 35% during stress and 48% during rest, but visually appears higher. Transient ischemic dilatation not present. EKG 09/2024 Atrial fibrillation with ventricular escape complexes, incomplete right bundle branch block. Rate 89 Airway Mallampati Class: II TM Dist: >3cm Neck ROM: Limited Denture: Upper and Lower Heart: RRR Lungs: CTAB Assessment and Plan Final Anesthetic Review Family History of Problems with Anesthesia: No History of Problems with Anesthesia: No
[2024-10-20 14:58] LABS: MRSA Nasal PCR NEGATIVE (Negative); SA Nasal PCR POSITIVE (Negative)
[2024-11-13 12:39] LABS: MANUAL DIFF FLAG NO
[2024-11-13 13:31] LABS: Hematocrit 48.3 % (37.0-47.0); Hemoglobin 16.4 g/dl (12.0-16.0); Imm Gran Abs Auto 0.03 X10*3/uL (0.00-0.03); Imm Gran Pct Auto 0.5 % (0.0-0.4); Lymphocytes Absolute Auto 1.8 X10*3/uL (1.2-4.9); Mean Corpuscular HGB Conc 34.0 g/dl (31.0-35.0); Mean Corpuscular Hemoglobin 32.3 pg (27.0-33.0); Mean Corpuscular Volume 95.3 fL (80.0-98.0); NRBC Abs Auto 0.000 X10*3/uL (0.0-0.012); NRBC Pct Auto 0.0 /100WBC (0.0-0.2); Platelet Count 199 X10*3/uL (160-400); Red Blood Count 5.07 X10*6/uL (4.20-5.50); White Blood Count 6.3 X10*3/uL (4.8-10.8)
[2024-11-13 13:43] LABS: Hemoglobin A1C 177.6322 umol/L; Total Hemoglobin (HGBA1C) 4235.6809 umol/L
[2024-11-13 13:48] LABS: Anion Gap 13 (12-20); Blood Urea Nitrogen 42 mg/dL (9-16); Calcium 9.0 mg/dL (8.4-10.2); Carbon Dioxide 28 mmol/L (22-29); Chloride 105 mmol/L (96-108); Creatinine Clr Calc Pharmacy 42.3; Estimated Glomerular Filt Rate 44; Potassium 4.4 mmol/L (3.3-5.1); Sodium 142 mmol/L (135-145)
--- OUTSIDE RECORDS SUMMARY | 2024-12-22 08:56 | XMS_ITS | Encounter Summary ---
Author Organization [facility] Address [address] 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 Not on savannah e documented as of this encounter Plan of Treatment Not on file documented as of this encounter Visit Diagnoses Not on filedocumented in this encounter Care Teams Manager Gallery Relationship Specialty Start Date End Date Mert Dumont MD [address] [place], [place] [id number] [email or web address] PCP - General Family Medicine 05/15/17 Benny Fairchild MD [address] [place] [address] Historical LMR Provider 12/27/16 2 Ambreen Gonzalez MD [address] [place] [address] Historical LMR Provider 12/27/16 2 documented as of this encounter Additional Source Comments The information contained in this document represents components of the legal health record. It is not the complete legal health record.[facility]
--- OUTSIDE RECORDS SUMMARY | 2024-12-22 08:56 | XMS_ITS | Encounter Summary ---
Author Organization [facility] Address [address] [place] [address] [place] [address] Phone Care Team Providers Care Finisher Machine Name Role Phone Benny Fairchild MD Unavailable Ambreen Little MD Unavailable Mert Dumont MD Primary Care Prov ider Encounter Details Date Type Department Care Team (Late st Contact Info) Description 10/29/2018 Ancillary Orders Non-Invasive Cardiology [address] [place] [address] Jose Longo MD [address] [place] [address] [email or web address] Sick sinus syndrome Social History Tobacco Use Types Packs/Day Years Used Date Smoking Tobacco: Former Cigarettes 1 40 1 958 - 8354 Smokeless Tobacco: Never Alcohol Use Standard Drinks/Week [...] 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 No device related complaints. Indication for device: SSS. Examination: Device type: Pacemaker Fret Saw Operator: Medtronic Mode: AAIR-DDDR LRL/UPL: 60/130 bpm [...] dysfunction documented in this encounter Care Teams Finisher Machine Relationship Specialty Start Date End Date Mert Dumont MD [address] [place] [address] PCP - General Family Medicine 05/15/17 Benny Fairchild MD [address] [place] [address] Historical LMR Provider 12/27/16 2 Ambreen Little MD [address] [place] [address] Historical LMR Provider 12/27/16 2 documented as of this encounter Additional Source Comments The information contained in this document represents components of the legal health record. It is not the complete legal health record.[facility]
--- OUTSIDE RECORDS SUMMARY | 2024-12-22 08:56 | XMS_ITS | Encounter Summary ---
Author Organization [facility] Address [address] [employer] [facility] [address] [place] [address] Phone Care Team Providers Care Box Truck Owner Operator Name Role Phone Benny Fairchild MD Unavailable [phone] Ambreen Little MD Unavailable Mert Dumont MD Primary Care Prov ider Encounter Details Date Type Department Care Team (Late st Contact Info) Description 09/01/2020 Procedure Pass Non-Invasive Cardiology [address] [place] [address] Social History Tobacco Use Types [...] on filedocumented in this encounter Care Teams Box Truck Owner Operator Relationship Specialty Start Date End Date Mert Dumont MD [address] [place], [place] [id number] [email or web address] PCP - General Family Medicine 05/15/17 Benny Fairchild MD [address] [place] [address] Historical LMR Provider 12/27/16 2 Ambreen Gonzalez MD [address] [place] [address] Historical LMR Provider 12/27/16 2 documented as of this encounter Additional Source Comments The information contained in this document represents components of the legal health record. It is not the complete legal health record.[facility]
--- OUTSIDE RECORDS SUMMARY | 2024-12-22 08:56 | XMS_ITS | Encounter Summary ---
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 It is not the complete legal health record.[facility]
--- OUTSIDE RECORDS SUMMARY | 2024-12-22 08:56 | XMS_ITS | Encounter Summary ---
Author Organization [facility] Address [address] [place] [address] Phone Care Team Providers Care Software Engineering Manager Name Role Phone Benny Fairchild MD Unavailable [phone] Ambreen Little MD Unavailable Mert Dumont MD Primary Care Prov ider Reason for Referral * MRI/CAT Scan - Closed Specialty Diagnoses / Procedures Referred By Julio C guy Referred To Contact Radiology Diagnoses Solitary pulmonary nodule Procedures CT Chest Mert Dumont MD Phone: tel: fax: [email or web address] Referral ID Status Reason Start Date Expiration Date Visits Re quested Visits Authorized [id number] Closed 09/30/2018 09/30/2019 1 1 Encounter Details Date Type Department Care Team (Late st Contact Info) Description 09/30/2018 Transcribe Orders Virtual Department [address] [place] [address] Mert Dumont MD [address] [place] [phone] [email or web address] Solitary pulmonary nodule (Primary Dx) Social History [...] 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 It is not the complete legal health record.[facility]
--- OUTSIDE RECORDS SUMMARY | 2024-12-22 08:56 | XMS_ITS | Encounter Summary ---
Author Organization [facility] Address [address] [place] [address] Phone Care Team Providers Care Sternman Name Role Phone Mert Dumont MD Primary Care Prov ider Encounter Details Date Type Department Care Team (Late st Contact Info) Description 01/27/2022 Procedure Pass Non-Invasive Cardiology [address] [place] [address] Social History Tobacco Use Types Packs/Day Years [...] on filedocumented in this encounter Care Teams Sternman Relationship Specialty Start Date End Date Mert Dumont MD PCP - General Family Medicine 05/15/17 documented as of this encounter Additional Source Comments The information contained in this document represents components of the legal health record. It is not the complete legal health record.[facility]
--- OUTSIDE RECORDS SUMMARY | 2024-12-22 08:56 | XMS_ITS | Encounter Summary ---
Author Organization [facility] Address [address] [place] [address] [place] [address] Phone Care Team Providers Care Testing Shaking Shipping Name Role Phone Benny Fairchild MD Unavailable [phone] Ambreen Little MD Unavailable Mert Dumont MD Primary Care Prov ider Encounter Details Date Type Department Care Team (Late st Contact Info) Description 07/04/2017 Ancillary Orders Non-Invasive Cardiology [address] [place] [address] Jose Longo MD [address] [facility] [place] [address] [email or web address] Sick sinus syndrome Social History Tobacco Use Types Packs/Day Years Used Date Smoking Tobacco: Former Cigarettes 1 40 1 958 - 1070 Smokeless Tobacco: Never Alcohol Use Standard Drinks/Week [...] * DEVICE CHECK: PPM REMOTE INTERROGATION WITH SOLAR LAB TECHNICIAN REVIEW (05/06/2018 1:45 PM EST) Narrative Jose Longo MD - 05/08/2018 4:26 PM EST Reason for appointment: Remote pacemaker interrogation HPI: Routine 3 month remote pacemaker interrogation. No device related complaints. Indication for device: SSS. Examination: Device type: Pacemaker Foundation Director: [employer] Mode: AAIR-DDDR LRL/UPL: 60/130 bpm Mode [...] dysfunction documented in this encounter Care Teams Testing Shaking Shipping Relationship Specialty Start Date End Date Mert Dumont MD [address] [place] [address] PCP - General Family Medicine 05/15/17 Benny Fairchild MD [address] [place] [address] Historical LMR Provider 12/27/16 2 Ambreen Little MD [address] [place] [address] Historical LMR Provider 12/27/16 2 documented as of this encounter Additional Source Comments The information contained in this document represents components of the legal health record. It is not the complete legal health record.[facility]
--- OUTSIDE RECORDS SUMMARY | 2024-12-22 08:56 | XMS_ITS | Encounter Summary ---
Author Organization [facility] Address [address] [place] [address] [place] [address] Phone Care Team Providers Care Retread Operator Name Role Phone Benny Fairchild MD Unavailable [phone] Ambreen Little MD Unavailable Mert Dumont MD Primary Care Prov ider Encounter Details Date Type Department Care Team (Late st Contact Info) Description 07/04/2017 Ancillary Orders [facility] [address] [place] [address] Jose Longo MD [address] [place] [address] [place] [address] Social History Tobacco Use Types Packs/Day Years Used Date Smoking Tobacco: Former Cigarettes 1 40 1 958 - 8334 Smokeless Tobacco: Never Alcohol Use Standard Drinks/Week [...] on filedocumented in this encounter Care Teams Retread Operator Relationship Specialty Start Date End Date Mert Dumont MD [facility] [place] [address] [email or web address] PCP - General Family Medicine 05/15/17 Benny Fairchild MD [address] [place] [address] Historical LMR Provider 12/27/16 2 Ambreen Little MD [facility] [place] [address] Historical LMR Provider 12/27/16 2 documented as of this encounter Additional Source Comments The information contained in this document represents components of the legal health record. It is not the complete legal health record.[facility]
--- OUTSIDE RECORDS SUMMARY | 2024-12-22 08:56 | XMS_ITS | Encounter Summary ---
Author Organization [facility] Address [address] [place] [address] Phone Care Team Providers Care Collection Supervisor Name Role Phone Mert Dumont MD Primary Care Prov ider Encounter Details Date Type Department Care Team (Late st Contact Info) Description 05/23/2021 Procedure Pass [facility] [address] [place] [address] Social History Tobacco Use Types Packs/Day Years [...] on filedocumented in this encounter Care Teams Collection Supervisor Relationship Specialty Start Date End Date Mert Dumont MD PCP - General Family Medicine 05/15/17 documented as of this encounter Additional Source Comments The information contained in this document represents components of the legal health record. It is not the complete legal health record.[facility]
--- OUTSIDE RECORDS SUMMARY | 2024-12-22 08:56 | XMS_ITS | Encounter Summary ---
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 It is not the complete legal health record.[facility]
--- OUTSIDE RECORDS SUMMARY | 2024-12-22 08:56 | XMS_ITS | Encounter Summary ---
Author Organization [facility] Address [address] [place] [address] Phone Care Team Providers Care Registered Public Surveyor Name Role Phone Benny Fairchild MD Unavailable [phone] Ambreen Little MD Unavailable Mert Dumont MD Primary Care Prov ider Reason for Referral * Physical Therapy (Routine) - Closed Specialty Diagnoses / Procedures Referred By Conttea t Referred To Contact Physical Therapy Diagnoses Dizziness and giddiness Mert Dumont MD Phone: tel: fax: [email or web address] [address] [address] Phone: tel: Referral ID Status Reason Start Date Expiration Date Visits Re quested Visits Authorized [id number] Closed 05/15/2017 03/11/2018 99 99 Encounter Details Date Type Department Care Team (Late st Contact Info) Description 05/15/2017 Transcribe Orders [facility] [address] [place] [address] Mert Dumont MD [address] [place] [address] [phone] [email or web address] Dizziness and giddiness (Primary Dx) [...] Associated Diagnoses Order Schedule Ambulatory referral to [facility] Physical Therapy Outpatient Referral Routine Dizziness and giddiness Ordered: 05/15/2017 documented as of this encounter Visit Diagnoses Diagnosis Dizziness and giddiness- Primary documented in this encounter Care Teams Registered Public Surveyor Relationship Specialty Start Date End Date Mert Dumont MD [facility] [place] [address] [email or web address] PCP - General Family Medicine 05/15/17 Benny Fairchild MD [address] [place] [address] Historical LMR Provider 12/27/16 2 Ambreen Little MD [address] [place] [address] Historical LMR Provider 12/27/16 2 documented as of this encounter Additional Source Comments The information contained in this document represents components of the legal health record. It is not the complete legal health record.[facility]
--- OUTSIDE RECORDS SUMMARY | 2024-12-22 08:56 | XMS_ITS | Encounter Summary ---
Author Organization [facility] Address [address] [place] [address] [place] [address] Phone Care Team Providers Care Emc Storage Architect Name Role Phone Benny Fairchild MD Unavailable [phone] Ambreen Little MD Unavailable Mert Dumont MD Primary Care Prov ider Encounter Details Date Type Department Care Team (Late st Contact Info) Description 10/29/2018 Ancillary Orders [facility] [address] [place] [address] Jose Longo MD [address] [place] [address] [place] [address] [email or web address] Social History Tobacco Use Types Packs/Day Years Used Date Smoking Tobacco: Former Cigarettes 1 40 1 958 - 8753 Smokeless Tobacco: Never Alcohol Use Standard Drinks/Week [...] 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 Not 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 Not on savannah e documented as of this encounter Plan of Treatment Not on file documented as of this encounter Visit Diagnoses Not on filedocumented in this encounter Care Teams Emc Storage Architect Relationship Specialty Start Date End Date Mert Dumont MD [facility] [place] [address] [email or web address] PCP - General Family Medicine 05/15/17 Benny Fairchild MD [address] [place] [address] Historical LMR Provider 12/27/16 2 Ambreen Little MD [facility] [place] [address] Historical LMR Provider 12/27/16 2 documented as of this encounter Additional Source Comments The information contained in this document represents components of the legal health record. It is not the complete legal health record.[facility]
--- OUTSIDE RECORDS SUMMARY | 2024-12-22 08:57 | XMS_ITS | Encounter Summary ---
Author Organization [facility] Address [address] [place] [address] [place] [address] Phone Care Team Providers Care Ice Cream Machine Operator Name Role Phone Benny Fairchild MD Unavailable [phone] Ambreen Little MD Unavailable Mert Dumont MD Primary Care Prov ider Encounter Details Date Type Department Care Team (Late st Contact Info) Description 06/15/2017 Procedure Pass [facility], [address] [place] [address] Social History Tobacco Use Types Packs/Day Years [...] on filedocumented in this encounter Care Teams Ice Cream Machine Operator Relationship Specialty Start Date End Date Mert Dumont MD [address] [place] [address] PCP - General Family Medicine 05/15/17 Benny Fairchild MD [address] [place] [address] Historical LMR Provider 12/27/16 2 Ambreen Little MD [address] [place] [address] Historical LMR Provider 12/27/16 2 documented as of this encounter Additional Source Comments The information contained in this document represents components of the legal health record. It is not the complete legal health record.[facility]
--- OUTSIDE RECORDS SUMMARY | 2024-12-22 08:57 | XMS_ITS | Encounter Summary ---
Author Organization [facility] Address [address] [place] [address] [place] [address] Phone Care Team Providers Care Locomotive Switch Operator Name Role Phone Benny Fairchild MD Unavailable [phone] Ambreen Little MD Unavailable Mert Dumont MD Primary Care Prov ider Encounter Details Date Type Department Care Team (Late st Contact Info) Description 06/29/2017 Procedure Pass [facility] [address] [place] [address] Social History Tobacco Use Types Packs/Day Years [...] on filedocumented in this encounter Care Teams Locomotive Switch Operator Relationship Specialty Start Date End Date Mert Dumont MD [address] [place] [address] [email or web address] PCP - General Family Medicine 05/15/17 Benny Fairchild MD [address] [place] [address] Historical LMR Provider 12/27/16 2 Ambreen Gonzalez MD [address] [place] [address] Historical LMR Provider 12/27/16 2 documented as of this encounter Additional Source Comments The information contained in this document represents components of the legal health record. It is not the complete legal health record.[facility]
--- OUTSIDE RECORDS SUMMARY | 2024-12-22 08:57 | XMS_ITS | Encounter Summary ---
Author Organization [facility] Address [facility]ly [facility] [address] [address] Phone Care Team Providers Care Activities Assistant Name Role Phone Benny Fairchild MD Unavailable [phone] Ambreen Little MD Unavailable Mert Dumont MD Primary Care Prov ider Reason for Referral * Physical Therapy (Routine) - Closed Specialty Diagnoses / Procedures Referred By Conttea t Referred To Contact Physical Therapy Diagnoses Encounter for rehabilitation System, Provider Not In, PhD [address] [address] Phone: tel: Referral ID Status Reason Start Date Expiration Date Visits Re quested Visits Authorized [id number] Closed 08/23/2017 03/11/2018 99 99 Encounter Details Date Type Department Care Team (Late st Contact Info) Description 08/23/2017 Transcribe Orders [facility] [address] [place] [address] Mert Dumont MD [address] [place] [address] [phone] [email or web address] Encounter for rehabilitation (Primary Dx) Social History [...] Date/Time Associated Diagnosis Comments AMB REFERRAL TO [facility] PHYSICAL THERAPY Routine 10/03/2017 11:56 AM EDT Encounter for rehabilitation documented in this encounter Results * Ambulatory referral to [facility] Physical Therapy (10/03/2017 11:56 AM EDT) us Provider Not In System PhD AMB [facility] REFERRALS Fin al Result documented in this encounter Visit Diagnoses Diagnosis Encounter for rehabilitation- Primary documented in this encounter Care Teams Activities Assistant Relationship Specialty Start Date End Date Mert Dumont MD [address] [place] [address] PCP - General Family Medicine 05/15/17 Benny Fairchild MD [address] [place] [address] Historical LMR Provider 12/27/16 2 Ambreen Little MD [facility]3 [place] [address] Historical LMR Provider 12/27/16 2 documented as of this encounter Additional Source Comments The information contained in this document represents components of the legal health record. It is not the complete legal health record.[facility]
--- OUTSIDE RECORDS SUMMARY | 2024-12-22 08:57 | XMS_ITS | Encounter Summary ---
Author Organization [facility] Address [address] [employer] [facility] [address] [place] [address] Phone Care Team Providers Care Medical Record Transcriber Name Role Phone Benny Fairchild MD Unavailable [phone] Ambreen Little MD Unavailable Mert Dumont MD Primary Care Prov ider Encounter Details Date Type Department Care Team (Late st Contact Info) Description 09/28/2017 Procedure Pass [facility], Ct Scan - [address] [phone] Social History Tobacco Use Types Packs/Day Years Used Date Smoking Tobacco: Former Cigarettes 1 40 1 478 - 1902 Smokeless Tobacco: Never Alcohol Use Standard Drinks/Week [...] on filedocumented in this encounter Care Teams Medical Record Transcriber Relationship Specialty Start Date End Date Mert Dumont MD [address] [place], [place] [phone] [email or web address] PCP - General Family Medicine 05/15/17 Benny Fairchild MD [address] [place] [address] Historical LMR Provider 12/27/16 2 Ambreen Little MD [address] [place] [address] Historical LMR Provider 12/27/16 2 documented as of this encounter Additional Source Comments The information contained in this document represents components of the legal health record. It is not the complete legal health record.[facility]
--- OUTSIDE RECORDS SUMMARY | 2024-12-22 08:57 | XMS_ITS | Encounter Summary ---
Author Organization [facility] Address [address] [facility] [address] [place] [address] Phone Care Team Providers Care Nuclear Physician Name Role Phone Benny Fairchild MD Unavailable [phone] Ambreen Little MD Unavailable Mert Dumont MD Primary Care Prov ider Encounter Details Date Type Department Care Team (Late st Contact Info) Description 02/25/2020 Procedure Pass Non-Invasive Cardiology [address] [place] [address] Social History Tobacco Use Types [...] on filedocumented in this encounter Care Teams Nuclear Physician Relationship Specialty Start Date End Date Mert Dumont MD [address] [place] [address] [email or web address] PCP - General Family Medicine 05/15/17 Benny Fairchild MD [address] [place] [address] Historical LMR Provider 12/27/16 2 Ambreen Little MD [address] [place] [address] Historical LMR Provider 12/27/16 2 documented as of this encounter Additional Source Comments The information contained in this document represents components of the legal health record. It is not the complete legal health record.[facility]
--- OUTSIDE RECORDS SUMMARY | 2024-12-22 08:57 | XMS_ITS | Encounter Summary ---
Author Organization [facility] Address [address] [place] [address] [place] [address] Phone Care Team Providers Care Body Builder Name Role Phone Benny Fairchild MD Unavailable [phone] Ambreen Little MD Unavailable Mert Dumont MD Primary Care Prov ider Encounter Details Date Type Department Care Team (Late st Contact Info) Description 07/20/2017 Ancillary Orders [facility] [address] [place] [address] Jose Longo MD [address] [place] [address] [place] [address] [email or web address] Social History Tobacco Use Types Packs/Day Years Used Date Smoking Tobacco: Former Cigarettes 1 40 1 958 - 1779 Smokeless Tobacco: Never Alcohol Use Standard Drinks/Week [...] on filedocumented in this encounter Care Teams Body Builder Relationship Specialty Start Date End Date Mert Dumont MD [facility]3 [place] [address] [email or web address] PCP - General Family Medicine 05/15/17 Benny Fairchild MD [address] [place] [address] Historical LMR Provider 12/27/16 2 Ambreen Little MD [facility]3 [place] [address] Historical LMR Provider 12/27/16 2 documented as of this encounter Additional Source Comments The information contained in this document represents components of the legal health record. It is not the complete legal health record.[facility]
--- OUTSIDE RECORDS SUMMARY | 2024-12-22 08:57 | XMS_ITS | Encounter Summary ---
Author Organization [facility] Address [address] [facility] [address] [place] [address] Phone Care Team Providers Care Portainer Operator Name Role Phone Benny Fairchild MD Unavailable [phone] Ambreen Little MD Unavailable Mert Dumont MD Primary Care Prov ider Reason for Referral * Physical Therapy (Routine) - Closed Specialty Diagnoses / Procedures Referred By Contac t Referred To Contact Physical Therapy Diagnoses Encounter for rehabilitation System, Provider Not In, PhD [address] [address] Phone: tel: Referral ID Status Reason Start Date Expiration Date Visits Re quested Visits Authorized [id number] Closed 07/23/2017 07/23/2018 1 1 Encounter Details Date Type Department Care Team (Late st Contact Info) Description 07/23/2017 Transcribe Orders [facility] [address] [place] [address] [phone] Lacey Espinal NP [address] [place] [address] [phone] Encounter for rehabilitation (Primary Dx) Social History [...] 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 Not on file Not on savannah e documented as of this encounter Plan of Treatment Scheduled Referrals Name Type Priority Associated Diagnoses Orde r Schedule Ambulatory referral to [facility] Physical Therapy Outpatient Referral Routine Encounter for rehabilitation Ordered: 07/23/2017 documented as of this encounter Visit Diagnoses Diagnosis Encounter for rehabilitation- Primary documented in this encounter Care Teams Portainer Operator Relationship Specialty Start Date End Date Mert Dumont MD [address] [place] [address] PCP - General Family Medicine 05/15/17 Benny Fairchild MD [address] [place] [address] Historical LMR Provider 12/27/16 2 Ambreen Little MD [facility]3 [place] [address] Historical LMR Provider 12/27/16 2 documented as of this encounter Additional Source Comments The information contained in this document represents components of the legal health record. It is not the complete legal health record.[facility]
--- OUTSIDE RECORDS SUMMARY | 2024-12-22 08:57 | XMS_ITS | Encounter Summary ---
Author Organization [facility] Address [address] [place] [address] [place] [address] Phone Care Team Providers Care Options Trader Name Role Phone Benny Fairchild MD Unavailable [phone] Ambreen Little MD Unavailable Mert Dumont MD Primary Care Prov ider Encounter Details Date Type Department Care Team (Late st Contact Info) Description 07/20/2017 Ancillary Orders Non-Invasive Cardiology [address] [place] [address] Jose Longo MD [address] [place] [address] [email or web address] SSS (sick sinus syndrome) Social History Tobacco [...] dysfunction documented in this encounter Care Teams Options Trader Relationship Specialty Start Date End Date Mert Dumont MD [address] [place] [address] [email or web address] PCP - General Family Medicine 05/15/17 Benny Fairchild MD [address] [place] [address] Historical LMR Provider 12/27/16 2 Ambreen Little MD [facility] [place] [address] Historical LMR Provider 12/27/16 2 documented as of this encounter Additional Source Comments The information contained in this document represents components of the legal health record. It is not the complete legal health record.[facility]
--- OUTSIDE RECORDS SUMMARY | 2024-12-22 08:57 | XMS_ITS | Encounter Summary ---
Author Organization [facility] Address [address] [facility] [address] [place] [address] Phone Care Team Providers Care Line Department Supervisor Name Role Phone Benny Fairchild MD Unavailable [phone] Ambreen Little MD Unavailable eMrt Dumont MD Primary Care Prov ider Reason for Referral * MRI/CAT Scan - Closed Specialty Diagnoses / Procedures Referred By Contac t Referred To Contact Radiology Diagnoses Essential hypertension Dyspnea on exertion Procedures NC Myocardial Perfusion Stress Single NC Myocardial Perfusion Pharmacologic Stress Multiple Jose Longo MD Phone: tel: fax: mailto:[email or web address] Referral ID Status Reason Start Date Expiration Date Visits Re quested Visits Authorized [id number] Closed 01/16/2018 01/16/2019 1 1 Encounter Details Date Type Department Care Team (Latest Contact Info) Description 02/19/2018 Ancillary Orders [facility] [address] Floor, [address] [place] [address] Jose Longo MD [address] [place] [address] [email or web address] Essential hypertension; Dyspnea on exertion [...] 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 Not on file [...] abnormality documented in this encounter Care Teams Line Department Supervisor Relationship Specialty Start Date End Date Mert Dumont MD [facility] [place] [address] [email or web address] PCP - General Family Medicine 05/15/17 Benny Fairchild MD [address] [place] [address] Historical LMR Provider 12/27/16 2 Ambreen Little MD [facility] [place] [address] Historical LMR Provider 12/27/16 2 documented as of this encounter Additional Source Comments The information contained in this document represents components of the legal health record. It is not the complete legal health record.[facility]
--- OUTSIDE RECORDS SUMMARY | 2024-12-22 08:57 | XMS_ITS | Encounter Summary ---
Author Organization [facility] Address [address] [place] [facility] [address] [place] [address] Phone Care Team Providers Care Beauty School Instructor Name Role Phone Benny Fairchild MD Unavailable [phone] Ambreen Little MD Unavailable Mert Dumont MD Primary Care Prov ider Encounter Details Date Type Department Care Team (Late st Contact Info) Description 06/28/2017 Procedure Pass [facility], Ct Scan - [address] [id number] Social History Tobacco Use Types Packs/Day Years Used Date Smoking Tobacco: Former Cigarettes 1 40 1 048 - 5447 Smokeless Tobacco: Never Alcohol Use Standard Drinks/Week [...] 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 Not on file Not on savannah e documented as of this encounter Plan of Treatment Not on file documented as of this encounter Visit Diagnoses Not on filedocumented in this encounter Care Teams Beauty School Instructor Relationship Specialty Start Date End Date Mert Dumont MD [address] [place], [place] [phone] [email or web address] PCP - General Family Medicine 05/15/17 Benny Fairchild MD [address] [place] [address] Historical LMR Provider 12/27/16 2 Ambreen Little MD [address] [place] [address] Historical LMR Provider 12/27/16 2 documented as of this encounter Additional Source Comments The information contained in this document represents components of the legal health record. It is not the complete legal health record.[facility]
--- OUTSIDE RECORDS SUMMARY | 2024-12-22 08:57 | XMS_ITS | Clinical Summary ---
Author Organization [facility] Address [address] [address] Phone Care Team Providers Care Industrial Gas Servicer Name Role Phone Mert Dumont MD Primary [...] of chronic back pain, previously treated at [facility] with excellent results I will obtain UTD xrays of lumbar spine Consider referral to PT and /or PSSP again Preop examination 12/16/2020 Assessment & Plan (12/16/2020 2:51 PM EDT): Patient seen in the office today prior to upcoming right total hip replacement on 01/11/[address] [place] [address] Lee. She is denying any symptoms concerning for angina, heart failure or arrhythmias at this time. According to the revised cardiac risk index for preoperative risk, patient has a 6.0% chance of , [place] or cardiac arrest within 30 days of [...] injection activity was discussed with the patient. [facility] # 0319-2766-57 [facility] # 2451-0841-91 Lot # [id number] Exp. 04/02 Continue Cymbalta [...] injection activity was discussed with the patient. [facility] # 2290-1525-91 Lot # [id number] Exp. 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 Not on file [...] this topic Medical Devices Implanted Type Area Beekeeper Device Identifier Shelf Expiration Date Model / Serial / Lot Lead Pacemaker Capsure Fix Novus Is-1 Bi Atr/Vntr Betty 52 Cm - [id number] Implanted:Qty : 1 on 06/29/2017 by Jose Longo MD at [facility] Lead [employer] [id number] 03/01/2019 5076-45 / [id number] / Lead Pacemaker Capsure Fix Novus Is-1 Bi Atr/Vntr Betty 45 Cm - [id number] Implanted:Qty : 1 on 06/29/2017 by oJse Longo MD at [facility] Lead Heart [employer] 03/01/2019 5076-45 / / Device Pacemaker New Point Xt Dr Erum - [id number] Implanted:Qty : 1 on 06/29/2017 by Jose Longo MD at [facility] Pacemaker [employer] [id number] 11/06/2018 [id number] / [id number] / Procedures Procedure Name Priority Date/Time Associated [...] EDT) SODIUM 135 133 - 146 mmol/L [facility] POTASSIUM 4.5 3.3 - 5.1 mmol/L [facility] CHLORIDE 97 96 - 108 mmol/L [facility] CO2 29 21 - 35 mmol/L [facility] BUN 10 6 - 19 mg/dL [facility] CREATININE 0.70 0.5 - 1.5 mg/dL [facility] GLUCOSE 101(H) 70 - 99 mg/dL [facility] ALBUMIN 3.7(L) 3.9 - 4.8 g/dL [facility] TOTAL PROTEIN 6.6 6.5 - 8.0 g/dL [facility] CALCIUM 8.8 8.4 - 10.3 mg/dL [facility] ALKALINE PHOSPHATASE 108 39 - 117 U/L [facility] TOTAL BILIRUBIN 0.4 0.0 - 1.2 mg/dL [facility] AST 33 0 - 37 U/L [facility] ALT 16 0 - 40 U/L [facility] GLOBULIN 2.9 1 - 4.8 g/dL [facility] EGFR 83 >59 mL/min/1.7 3m2 [facility] Comment:Estimated glomerular filtration rate calculated using the CKD-EPI equation. ANION GAP 14 10 - 20 mmol/L [facility] Blood 06/15/2020 2:08 PM EDT 06/15/2020 2:12 PM EDT Demetri VALDEZ LAB BLOOD ORDERABLES Fi nal Result [address] [address] * TSH with reflex (06/29/2017 5:19 AM EDT) TSH 2.36 0.27 - 4.20 uIU/mL [facility] Blood 06/29/2017 5:19 AM EDT 06/29/2017 6:33 AM EDT Vesna Vera PA-C LAB BLOOD ORDERABLES Final Result [address] [address] from Last 3 Months or Most Recently Relevant to Health Maintenance Insurance MEDICARE PART A & B [employer] MEDEX SUPPLEMENT MEDICARE PART A & B [employer] MEDEX SUPPLEMENT MEDICARE PART A & B [facility] MEDEX SUPPLEMENT MEDICARE PART A & B Member Subscriber Plan / Payer ( fective 2006-Present) Name:Yina Rutledge Member ID:[id number] Relation to Subscriber:Self Name:Yina Rutledge Subscriber ID:[id number] Payer ID:[id number] Group ID:Not on file Type:Medicare Address: [employer] [address] [place] [phone] [employer] MEDEX SUPPLEMENT MEDICARE PART A & B [employer] MEDEX SUPPLEMENT MEDICARE PART A & B [employer] MEDEX SUPPLEMENT MEDICARE PART A & B [employer] MEDEX SUPPLEMENT MEDICARE PART A & B [employer] MEDEX SUPPLEMENT MEDICARE PART A & B [employer] MEDEX SUPPLEMENT Advance Directives For more information, please contact: [phone] (9AM - 5PM Luz/[facility], Sunday-Sunday) Documents on File Type Date Recorded Patient Sociology Faculty Member Expl anation Healthcare Proxy 07/06/2017 3:24 PM * Full Code (Confirmed) (Latest Code Status on File) Date Activated Date Inactivated Comments 06/28/2017 3:34 PM 06/30/2017 2:37 PM Care Teams Industrial Gas Servicer Relationship Specialty Start Date End Date Mert Dumont MD [email or web address] PCP - General Family Medicine 05/15/17 Additional Source Comments The information contained in this document represents components of the legal health record. It is not the complete legal health record.[facility]
--- OUTSIDE RECORDS SUMMARY | 2024-12-22 08:57 | XMS_ITS | Encounter Summary ---
Author Organization [facility] Address [address] [employer] [facility] [address] [place] [address] Phone Care Team Providers Care Hand Touch Up Painter Name Role Phone Benny Fairchild MD Unavailable Ambreen Little MD Unavailable Mert Dumont MD Primary Care Prov ider Encounter Details Date Type Department Care Team (Late st Contact Info) Description 01/24/2020 Procedure Pass Non-Invasive [facility]iology [address] [place] [address] Social History Tobacco Use Types [...] on filedocumented in this encounter Care Teams Hand Touch Up Painter Relationship Specialty Start Date End Date Mert Dumont MD [address] [place] [address] [email or web address] PCP - General Family Medicine 05/15/17 Benny Fairchild MD [address] [place] [address] Historical LMR Provider 12/27/16 2 Ambreen Little MD [address] [place] [address] Historical LMR Provider 12/27/16 2 documented as of this encounter Additional Source Comments The information contained in this document represents components of the legal health record. It is not the complete legal health record.[facility]
--- OUTSIDE RECORDS SUMMARY | 2024-12-22 08:57 | XMS_ITS | Encounter Summary ---
Author Organization [facility] Address [address] [place] [address] Phone Care Team Providers Care Svp Chief Marketing Officer Name Role Phone Mert Dumont MD Primary Care Prov ider Encounter Details Date Type Department Care Team (Late st Contact Info) Description 01/31/2022 Procedure Pass Non-Invasive Cardiology [address] [place] [address] Social History Tobacco Use Types Packs/Day Years [...] on filedocumented in this encounter Care Teams Svp Chief Marketing Officer Relationship Specialty Start Date End Date Mert Dumont MD PCP - General Family Medicine 05/15/17 documented as of this encounter Additional Source Comments The information contained in this document represents components of the legal health record. It is not the complete legal health record.[facility]
--- OUTSIDE RECORDS SUMMARY | 2024-12-22 08:57 | XMS_ITS | Encounter Summary ---
Author Organization 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 Not on file Not on savannah e documented as of this encounter Plan of Treatment Not on file documented as of this encounter Visit Diagnoses Not on filedocumented in this encounter Care Teams Curtain Cutter Hand Relationship Specialty Start Date End Date Mert Dumont MD [address] [place], [place] [phone] [email or web address] PCP - General Family Medicine 05/15/17 Benny Fairchild MD [address] [place] [address] Historical LMR Provider 12/27/16 2 Ambreen Gonzalez MD [address] [place] [address] Historical LMR Provider 12/27/16 2 documented as of this encounter Additional Source Comments The information contained in this document represents components of the legal health record. It is not the complete legal health record.[facility]
--- OUTSIDE RECORDS SUMMARY | 2024-12-22 08:57 | XMS_ITS | Encounter Summary ---
Author Organization [facility] Address [address] [place] [address] Phone Care Team Providers Care Pressure Test Operator Name Role Phone Benny Fairchild MD Unavailable [phone] Ambreen Little MD Unavailable Mert Dumont MD Primary Care Prov ider Reason for Referral * MRI/CAT Scan - Closed Specialty Diagnoses / Procedures Referred By Contac t Referred To Contact Radiology Diagnoses Vertigo Dizziness and giddiness Procedures MRI Brain Mert Dumont MD Phone: tel: fax: [email or web address] Referral ID Status Reason Start Date Expiration Date Visits Re quested Visits Authorized [id number] Closed 06/15/2017 06/15/2018 1 1 Encounter Details Date Type Department Care Team (Late st Contact Info) Description 06/15/2017 Ancillary Orders Virtual Department [address] [place] [address] Mert Dumont MD [address] [place] [address] [phone] [email or web address] Vertigo; Dizziness and giddiness Social History Tobacco [...] in the right parietal lobe. POS - [id number] Narrative 06/26/2017 11:10 AM EDT HISTORY: Dizziness. [...] anomalyin the right parietal lobe. POS - [id number] Mert Miller MD IMG MR HEAD/NECK F inal Result documented in this encounter Visit Diagnoses Diagnosis Vertigo Dizziness and giddiness Dizziness and giddiness Vertigo Dizziness and giddiness Dizziness and giddiness documented in this encounter Care Teams Pressure Test Operator Relationship Specialty Start Date End Date Mert Dumont MD [address] [place] [address] [email or web address] PCP - General Family Medicine 05/15/17 Benny Fairchild MD [address] [place] [address] Historical LMR Provider 12/27/16 2 Ambreen Little MD [address] [place] [address] Historical LMR Provider 12/27/16 2 documented as of this encounter Additional Source Comments The information contained in this document represents components of the legal health record. It is not the complete legal health record.[facility]
--- OUTSIDE RECORDS SUMMARY | 2024-12-22 08:57 | XMS_ITS | Encounter Summary ---
Author Organization [facility] Address [address] [place] [address] [place] [address] Phone Care Team Providers Care Director Of Event Management Name Role Phone Benny Fairchild MD Unavailable [phone] Ambreen Little MD Unavailable Mert Dumont MD Primary Care Prov ider Encounter Details Date Type Department Care Team (Late st Contact Info) Description 03/24/2019 Ancillary Orders Non-Invasive Cardiology [address] [place] [address] Jose Longo MD [address] [place] [address] [email or web address] SSS (sick sinus syndrome) Social History Tobacco [...] 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 No device related complaints. Indication for device: SSS. Examination: Device type: Pacemaker Accounting Office Manager: [employer] Mode: AAIR-DDDR LRL/UPL: 60/130 bpm [...] dysfunction documented in this encounter Care Teams Director Of Event Management Relationship Specialty Start Date End Date Mert Dumont MD [address] [place] [address] PCP - General Family Medicine 05/15/17 Benny Fairchild MD [address] [place] [address] Historical LMR Provider 12/27/16 2 Ambreen Little MD [address] [place] [address] Historical LMR Provider 12/27/16 2 documented as of this encounter Additional Source Comments The information contained in this document represents components of the legal health record. It is not the complete legal health record.[facility]
== END 2024-10-20 00:01 | disposition home or self-care (01) ==
LOC: HO.PAT
PROVIDERS: Physician Assistant; PCP Family Medicine; Visit Provider Orthopaedic Surgery
DX: Z01.812 Encounter for preprocedural laboratory examination (principal); M16.12 Unilateral primary osteoarthritis, left hip; Z13.1 Encounter for screening for diabetes mellitus; Z01.84 Encounter for antibody response examination
CPT/HCPCS: 36415; 80048; 83036; 85025; 86850; 86900; 86901; 87640; 87641

== ENCOUNTER → 2024-10-20 08:53 | Outpatient (BNVA) | payer MEDICARE, SELFPAY | DX: S93.402A Sprain of unspecified ligament of left ankle, initial encounter (principal) | CPT/HCPCS: 99212 ==

== ENCOUNTER 2024-10-20 13:10 | Outpatient (AMB) | payer MEDICARE, SELFPAY ==
--- NOTE | 2024-10-20 13:21 | A.OFFVIS_ITS ---
Intake Visit Reasons: EP, Left ankle injury DOI 10/10/24 Intake Note: Yina is an 84 year old female who presents today for an evaluation of left ankle injury, DOI 10/10/24. Patient reports that he hip gave away causing her to fall and injur her ankle. She was seen at [facility] where x-rays were taken and placed in a walking boot. Patient reports pain shooting up her leg from her ankle. Allergies Seasonal Allergies Allergy (Mild, Verified 10/20/24 09:09) itching and sneezing HPI HPI EP, Left ankle injury DOI 10/10/24: Details: 84-year-old female presents to the office today for an injury she sustained to her left ankle on 10/07/2024. She states her hip gave out when she was in the kitchen and she fell injuring her ankle. She was seen in the emergency department where x-rays were obtained and she was placed in a tall boot and treated for an avulsion fracture of the ankle. She was also discharged to a short-term rehab and was just recently discharged back home. She is weight-b earing as tolerated with a walker. She is tentatively booked for a left hip arthroplasty on 11/13/[address] [facility] Medical History (Updated 10/20/24 @ 13:45 by Ariana Allen PA-C) Spinal stenosis SOB (shortness of breath) Atrial fibrillation Foot fracture, left (~10/07/24) Acute on chronic diastolic (congestive) heart failure History of cardioversion Arthritis Persistent atrial fibrillation Sick sinus syndrome Cardiac pacemaker in situ (HFpEF) heart failure with preserved ejection fraction Hypertension TIA (transient ischemic attack) Wears dentures Wears hearing aid in both ears Hx of cardiac pacemaker Degenerative joint disease Peripheral venous insufficiency Transient cerebral ischemia Hearing loss Retinal artery occlusion Obstructive sleep apnea Obesity (BMI 30-39.9) Surgical History H/O heart surgery History of right hip replacement Hx of tubal ligation Hx laparoscopic cholecystectomy History of esophagogastroduodenoscopy (EGD) Hx of colonoscopy Status post ORIF of fracture of ankle (~1984) History of cataract surgery (~2016) Social History Household Members: Spouse Housing: House Are you a primary child care worker to a significant other at home: No Do you presently have visiting nurse or other home services: No Alcohol intake: never Patient Tobacco Use Status: Former Tobacco user Tobacco use type: Cigarette Years Smoked: 20 Advance Directives Date on File: 09/20/17 service: No Current occupational status: retired Current occupation: right handed Review of Systems Const All systems reviewed & are unremarkable except as noted in HPI and below Physical Exam Extrem Other: Left ankle is normal to inspection without any open wounds or abrasions. She does have a scar over the anterior cedillo which is well healed. This is from a previous injury where she fell and had a laceration. She has some surrounding erythema which she states is chronic. Mild tenderness over the distal fibula. Syndesmosis without pain. Neurovascularly intact. Results Reviewed Results Reviewed: X-rays of the left ankle obtained in the emergency department on 10/07/2024 are negative for any acute fractures or dislocations. There is evidence of an old healed fracture at the distal fibula. Assessment & Plan Assessment & Plan (1) Left ankle sprain: Code(s): S93.402A - Sprain of unspecified ligament of left ankle, initial encounter Category: Medical Plan: Patient was fit for a short boot weightbearing as tolerated. She will use the boot at all times when ambulating. She can remove for rest and hygiene. I encouraged she ice the area as well. She was given a prescription for tramadol to use at nighttime only. She will see me back in 2 weeks for re-evaluation, sooner if needed. Coding Level of Care Code Est Pt Level 3 (74956) Complex EM visit Add On G2211 Diagnoses Left ankle sprain S93.402A
== END 2024-10-20 14:12 | disposition home or self-care (01) ==
LOC: HO.HOS 13:10
PROVIDERS: PCP Family Medicine; Visit Provider Physician Assistant
DX: S93.402A Sprain of unspecified ligament of left ankle, initial encounter (principal)
CPT/HCPCS: 99213; G2211

== ENCOUNTER 2024-11-05 13:09 | Outpatient (AMB) | payer MEDICARE, SELFPAY ==
--- OUTSIDE RECORDS SUMMARY | 2020-05-30 09:55 | XMS_ITS | Encounter Summary ---
Author Organization [facility] Address [address] [employer] [facility] [address] [place] [address] Phone Care Team Providers Care Insurance Solicitor Name Role Phone Benny Fairchild MD Unavailable [phone] Ambreen Little MD Unavailable Mert Dumont MD Primary Care Prov ider Encounter Details Date Type Department Care Team (Late st Contact Info) Description 05/30/2020 9:55 AM EDT Hospital Encounter [facility] [address] [place] [address] [phone] Josie Otero, AIRLINE TICKET AGENT [address] [place] [address] [email or web address] Social History Tobacco Use Types Packs/Day Years [...] 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 Josie Otero AIRLINE TICKET AGENT IMG XR LOWER EXTREMITY Final Result documented in this encounter Visit Diagnoses Not on filedocumented in this encounter Care Teams Insurance Solicitor Relationship Specialty Start Date End Date Mert Dumont MD [address] [place] [address] [email or web address] PCP - General Family Medicine 05/15/17 Benny Fairchild MD [address] [place] [address] Historical LMR Provider 12/27/16 2 Ambreen Little MD [address] [place] [address] Historical LMR Provider 12/27/16 2 documented as of this encounter Additional Source Comments The information contained in this document represents components of the legal health record. It is not the complete legal health record.[facility]
--- NOTE | 2024-11-05 13:16 | A.OFFVIS_ITS ---
Vital Signs 11/05/24 13:21 Height 5 ft 4 in Weight 225 lb BMI 38.6 Intake Visit Reasons: OV- Left ankle sprain DOI 10/10/24 Intake Note: Yina is an 84 year old female who presents today for a follow up of left ankle injury, DOI 10/10/24. At her last visit patient was placed in a short walking boot, weight bear as tolerated, instructed to follow up in 2 weeks for re-evalu ation. Patient reports radiating pain that starts in her back travels to her groin down her leg. States her pain is about the same since her last visit. Allergies Seasonal Allergies Allergy (Mild, Verified 10/20/24 09:09) itching and sneezing HPI HPI OV- Left ankle sprain DOI 10/10/24: Details: 84-year-old female returns to the office today for a follow-up left ankle sprain. She has been using a boot but feels as though the boot is causing more discomfort over the skin. She has been weight-bearing as tolerated with her walker. She is scheduled for left total hip arthroplasty in November with Dr. Lee. [facility] Medical History (Updated 10/20/24 @ 13:45 by Ariana Allen PA-C) Spinal stenosis SOB (shortness of breath) Atrial fibrillation Foot fracture, left (~10/07/24) Acute on chronic diastolic (congestive) heart failure History of cardioversion Arthritis Persistent atrial fibrillation Sick sinus syndrome Cardiac pacemaker in situ (HFpEF) heart failure with preserved ejection fraction Hypertension TIA (transient ischemic attack) Wears dentures Wears hearing aid in both ears Hx of cardiac pacemaker Degenerative joint disease Peripheral venous insufficiency Transient cerebral ischemia Hearing loss Retinal artery occlusion Obstructive sleep apnea Obesity (BMI 30-39.9) Surgical History H/O heart surgery History of right hip replacement Hx of tubal ligation Hx laparoscopic cholecystectomy History of esophagogastroduodenoscopy (EGD) Hx of colonoscopy Status post ORIF of fracture of ankle (~1984) History of cataract surgery (~2016) Social History Household Members: Spouse Housing: House Are you a primary critical care nurse practitioner to a significant other at home: No Do you presently have visiting nurse or other home services: No Alcohol intake: never Patient Tobacco Use Status: Former Tobacco user Tobacco use type: Cigarette Years Smoked: 20 Advance Directives Date on File: 09/20/17 service: No Current occupational status: retired Current occupation: right handed Review of Systems Const All systems reviewed & are unremarkable except as noted in HPI and below Physical Exam Vital Signs: BMI result Body Mass Index 38.6 Extrem Other: Left ankle is normal to inspection without any open wounds or abrasions. She does have a scar over the anterior cedillo which is well healed. This is from a previous injury where she fell and had a laceration. She has some surrounding erythema which she states is chronic. Very mild tenderness over the distal fibula. Syndesmosis without pain. Neurovascularly intact. Assessment & Plan Assessment & Plan (1) Left ankle sprain: Code(s): S93.402A - Sprain of unspecified ligament of left ankle, initial encounter Category: Medical Plan: We trialed a lace-up ankle brace which the patient did not feel comfortable in. She did ambulate for me in the office with just a regular street shoe and felt comfortable without instability or increased pain. Therefore she can transition to a regular street shoe, weaned from the boot and weightbear as tolerated. I did advise her to use caution with activities to reduce risk of increased pain or swelling. And she will follow up as needed for her ankle. Coding Level of Care Code Est Pt Level 3 (74017) Complex EM visit Add On G2211 Diagnoses Left ankle sprain S93.402A
[2024-11-05 13:21] VITALS: BMI 38.6
--- OUTSIDE RECORDS SUMMARY | 2024-11-05 13:47 | XMS_ITS | Encounter Summary ---
Author Organization [facility] Address [address] [place] [address] Phone Care Team Providers Care Wire Lather Name Role Phone Mert Dumont MD Primary Care Prov ider Encounter Details Date Type Department Care Team (Late st Contact Info) Description 05/23/2021 Procedure Pass Non-Invasive Cardiology [address] [place] [address] Social History Tobacco Use Types Packs/Day Years Used Date Smoking Tobacco: Former Cigarettes 1 40 1 958 - 1998 Smokeless Tobacco: Never Alcohol Use Standard Drinks/Week Comments Yes 0 (1 standard drink = 0.6 oz pur e alcohol) socially Comments Unknown Sex and Gender Information Value Date Recorded Sex Assigned at Female 06/28/2017 3:51 PM EDT Legal Sex Female 10:11 PM EDT Gender Identity Female 06/28/2017 3:51 PM EDT Sexual Orientation Straight 06/28/2017 3: 51 PM EDT 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 It is not the complete legal health record.[facility]
--- OUTSIDE RECORDS SUMMARY | 2024-11-05 13:47 | XMS_ITS | Encounter Summary ---
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 Not on file Not on savannah e documented as of this encounter Plan of Treatment Not on file documented as of this encounter Visit Diagnoses Not on filedocumented in this encounter Care Teams Fish Cutting Machine Operator Relationship Specialty Start Date End Date Mert Dumont MD [address] [place], [place] [id number] [email or web address] PCP - General Family Medicine 05/15/17 Benny Fairchild MD [address] [place] [address] Historical LMR Provider 12/27/16 2 Ambreen Gonzalez MD [address] [place] [address] Historical LMR Provider 12/27/16 2 documented as of this encounter Additional Source Comments The information contained in this document represents components of the legal health record. It is not the complete legal health record.[facility]
--- OUTSIDE RECORDS SUMMARY | 2024-11-05 13:47 | XMS_ITS | Encounter Summary ---
Author Organization [facility] Address [address] [place] [address] Phone Care Team Providers Care Explosive Technician Name Role Phone Benny Fairchild MD Unavailable [phone] Ambreen Little MD Unavailable Mert Dumont MD Primary Care Prov ider Reason for Referral * MRI/CAT Scan - Closed Specialty Diagnoses / Procedures Referred By Julio C guy Referred To Contact Radiology Diagnoses Solitary pulmonary nodule Procedures CT Chest Mert Dumont MD Phone: tel: fax: [email or web address] Referral ID Status Reason Start Date Expiration Date Visits Re quested Visits Authorized [id number] Closed 09/30/2018 09/30/2019 1 1 Encounter Details Date Type Department Care Team (Late st Contact Info) Description 09/30/2018 Transcribe Orders Virtual Department [address] [place] [address] Mert Dumont MD [address] [place] [address] [phone] [email or web address] Solitary pulmonary nodule (Primary Dx) Social History Tobacco Use Types [...] 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 Diffuse centrilobular emphysema. 2. No acute pulmonary consolidation. 3. Scattered sub-5 mm calcified and noncalcified pulmonary nodules, without significant interval change compared with 10/01/2017 CT. TOTAL CTDIvol: 5.40 mGy POS - [id number] Edited by: Yari Rosas on 10/07/2018 4:17 PM Narrative 10/07/2018 4:36 PM EDT EXAM: CT CHEST WITHOUT CONTRAST HISTORY: Shortness of breath. TECHNIQUE: CT imaging of the chest without IV contrast. Helical axial images obtained with coronal and sagittal images reconstructed. Radiation dose control: Exam performed with automated exposure control or iterative reconstruction to minimize radiation exposure. COMPARISON: 10/01/[address] FINDINGS: LUNGS/AIRWAYS: The trachea and main bronchi are normal. The lungs are again hyperinflated with moderate diffuse centrilobular emphysema. There is mild bilateral apical pleural-parenchymal scarring. There are no new suspicious pulmonary masses or nodules. There are numerous scattered small calcified and noncalcified pulmonary nodules (all sub-5 mm), which are without significant change when compared with 10/01/2017 CT. There is no new pulmonary consolidation. There is no significant bronchiectasis. No evidence for mucous plugging. PLEURA: Normal. No pleural effusions. CARDIOVASCULAR: Stable mild enlargement of the heart. There is no pericardial effusion. Stable RIGHT atrial and RIGHT ventricular cardiac leads entering from the LEFT. Stable mild thoracic atherosclerotic calcification. Stable coronary artery calcifications. MEDIASTINUM/BRENDON: There is no suspicious lymphadenopathy. There is a very small hiatal hernia. CHEST WALL/THORACIC INLET/LOWER NECK: Stable appearance of the LEFT thyroid gland with a coarse calcification and a subcentimeter hypodense nodule. No significant chest wall abnormality. There is no axillary adenopathy. BONES: Bones are osteopenic. Stable mild scoliotic curvature. No suspicious bone lesions. UPPER ABDOMEN: There are no acute findings in the included upper abdomen. There are surgical clips in the gallbladder fossa. There is a proximal duodenal diverticulum. Upper abdominal aortic atherosclerotic calcifications noted. Procedure Note Lakesha Vidal MD - 10/07/2018 EXAM: CT CHEST WITHOUT CONTRAST HISTORY: Shortness of breath. TECHNIQUE: CT imaging of the chest without IV contrast. Helical axialimages obtained with coronal and sagittal images reconstructed. Radiation dose control: Exam performed with automated exposure control oriterative reconstruction to minimize radiation exposure. COMPARISON: 10/01/[address] FINDINGS: LUNGS/AIRWAYS: The trachea and main bronchi are normal. The lungs areagain hyperinflated with moderate diffuse centrilobular emphysema. Thereis mild bilateral apical pleural-parenchymal scarring. There are no newsuspicious pulmonary masses or nodules. There are numerous scattered smallcalcified and noncalcified pulmonary nodules (all sub-5 mm), which arewithout significant change when compared with 10/01/2017 CT. There is nonew pulmonary consolidation. There is no significant bronchiectasis. Noevidence for mucous plugging. PLEURA: Normal. No pleural effusions. CARDIOVASCULAR: Stable mild enlargement of the heart. There is nopericardial effusion. Stable RIGHT atrial and RIGHT ventricular cardiacleads entering from the LEFT. Stable mild thoracic atheroscleroticcalcification. Stable coronary artery calcifications. MEDIASTINUM/BRENDON: There is no suspicious lymphadenopathy. There is a verysmall hiatal hernia. CHEST WALL/THORACIC INLET/LOWER NECK: Stable appearance of the LEFTthyroid gland with a coarse calcification and a subcentimeter hypodensenodule. No significant chest wall abnormality. There is no axillaryadenopathy. BONES: Bones are osteopenic. Stable mild scoliotic curvature. Nosuspicious bone lesions. UPPER ABDOMEN: There are no acute findings in the included upper abdomen.There are surgical clips in the gallbladder fossa. There is a proximalduodenal diverticulum. Upper abdominal aortic atheroscleroticcalcifications noted. IMPRESSION: 1. Diffuse centrilobular emphysema. 2. No acute pulmonary consolidation. 3. Scattered sub-5 mm calcified and noncalcified pulmonary nodules,without significant interval change compared with 10/01/2017 CT. TOTAL CTDIvol: 5.40 mGy POS - [id number] Edited by: Yari Rosas on 10/07/2018 4:17 PM Mert Miller MD IMG CT CHEST Fi nal Result documented in this encounter Visit Diagnoses Diagnosis Solitary pulmonary nodule- Primary Solitary pulmonary nodule documented in this encounter Care Teams Explosive Technician Relationship Specialty Start Date End Date Mert Dumont MD [facility] [place] [address] PCP - General Family Medicine 05/15/17 Benny Fairchild MD [address] [place] [address] Historical LMR Provider 12/27/16 2 Ambreen Little MD [facility] [place] [address] Historical LMR Provider 12/27/16 2 documented as of this encounter Additional Source Comments The information contained in this document represents components of the legal health record. It is not the complete legal health record.[facility]
--- OUTSIDE RECORDS SUMMARY | 2024-11-05 13:47 | XMS_ITS | Encounter Summary ---
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 Not on file Not on savannah e documented as of this encounter Plan of Treatment Not on file documented as of this encounter Visit Diagnoses Not on filedocumented in this encounter Care Teams Fern Picker Relationship Specialty Start Date End Date Mert Dumont MD [address] [place], [place] [id number] [email or web address] PCP - General Family Medicine 05/15/17 Benny Fairchild MD [address] [place] [address] Historical LMR Provider 12/27/16 2 Ambreen Gonzalez MD [address] [place] [address] Historical LMR Provider 12/27/16 2 documented as of this encounter Additional Source Comments The information contained in this document represents components of the legal health record. It is not the complete legal health record.[facility]
--- OUTSIDE RECORDS SUMMARY | 2024-11-05 13:47 | XMS_ITS | Encounter Summary ---
Author Organization [facility] Address [address] [place] [address] [place] [address] Phone Care Team Providers Care Content Architect Name Role Phone Benny Fairchild MD Unavailable [phone] Ambreen Little MD Unavailable Mert Dumont MD Primary Care Prov ider Encounter Details Date Type Department Care Team (Late st Contact Info) Description 10/29/2018 Ancillary Orders [facility] [address] [place] [address] Jose Longo MD [address] [place] [address] [place] [address] [email or web address] Social History Tobacco Use Types Packs/Day Years Used Date Smoking Tobacco: Former Cigarettes 1 40 1 958 - 4363 Smokeless Tobacco: Never Alcohol Use Standard Drinks/Week [...] on filedocumented in this encounter Care Teams Content Architect Relationship Specialty Start Date End Date Mert Dumont MD [facility] [place] [address] [email or web address] PCP - General Family Medicine 05/15/17 Benny Fairchild MD [address] [place] [address] Historical LMR Provider 12/27/[address] [facility] [place] [address] Historical LMR Provider 12/27/16 2 documented as of this encounter Additional Source Comments The information contained in this document represents components of the legal health record. It is not the complete legal health record.[facility]
--- OUTSIDE RECORDS SUMMARY | 2024-11-05 13:47 | XMS_ITS | Encounter Summary ---
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 It is not the complete legal health record.[facility]
--- OUTSIDE RECORDS SUMMARY | 2024-11-05 13:47 | XMS_ITS | Encounter Summary ---
Author Organization [facility] Address [address] [place] [address] Phone Care Team Providers Care Programmable Logic Controller Assembler Name Role Phone Mert Dumont MD Primary Care Prov ider Encounter Details Date Type Department Care Team (Late st Contact Info) Description 01/27/2022 Procedure Pass Non-Invasive Cardiology [address] [place] [address] Social History Tobacco Use Types Packs/Day Years [...] on filedocumented in this encounter Care Teams Programmable Logic Controller Assembler Relationship Specialty Start Date End Date Mert Dumont MD PCP - General Family Medicine 05/15/17 documented as of this encounter Additional Source Comments The information contained in this document represents components of the legal health record. It is not the complete legal health record.[facility]
--- OUTSIDE RECORDS SUMMARY | 2024-11-05 13:47 | XMS_ITS | Encounter Summary ---
Author Organization [facility] Address [address] [place] [address] Phone Care Team Providers Care Visiting Teacher Name Role Phone Benny Fairchild MD Unavailable [phone] Ambreen Little MD Unavailable Mert Dumont MD Primary Care Prov ider Reason for Referral * Physical Therapy (Routine) - Closed Specialty Diagnoses / Procedures Referred By Conttea t Referred To Contact Physical Therapy Diagnoses Dizziness and giddiness Mert Dumont MD Phone: tel: fax: [email or web address] [address] [address] Phone: tel: Referral ID Status Reason Start Date Expiration Date Visits Re quested Visits Authorized [id number] Closed 05/15/2017 03/11/2018 99 99 Encounter Details Date Type Department Care Team (Late st Contact Info) Description 05/15/2017 Transcribe Orders [facility] [address] [place] [address] Mert Dumont MD [address] [place] [address] [phone] [email or web address] Dizziness and giddiness (Primary Dx) [...] Associated Diagnoses Order Schedule Ambulatory referral to [facility] Physical Therapy Outpatient Referral Routine Dizziness and giddiness Ordered: 05/15/2017 documented as of this encounter Visit Diagnoses Diagnosis Dizziness and giddiness- Primary documented in this encounter Care Teams Visiting Teacher Relationship Specialty Start Date End Date Mert Dumont MD [facility] [place] [address] [email or web address] PCP - General Family Medicine 05/15/17 Benny Fairchild MD [address] [place] [address] Historical LMR Provider 12/27/16 2 Ambreen Little MD [address] [place] [address] Historical LMR Provider 12/27/16 2 documented as of this encounter Additional Source Comments The information contained in this document represents components of the legal health record. It is not the complete legal health record.[facility]
--- OUTSIDE RECORDS SUMMARY | 2024-11-05 13:47 | XMS_ITS | Encounter Summary ---
Author Organization [facility] Address [address] [place] [address] [place] [address] Phone Care Team Providers Care Hall Monitor Name Role Phone Benny Fairchild MD Unavailable [phone] Ambreen Little MD Unavailable Mert Dumont MD Primary Care Prov ider Encounter Details Date Type Department Care Team (Late st Contact Info) Description 10/29/2018 Ancillary Orders Non-Invasive Cardiology [address] [place] [address] Jose Longo MD [address] [facility] 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 No device related complaints. Indication for device: SSS. Examination: Device type: Pacemaker Bundle Cutter: Medtronic Mode: AAIR-DDDR LRL/UPL: 60/130 bpm Mode switches: 14 episodes, AF burden <0.1% High V rates: 1 Thresholds, impedances, and sensing stable. AF/AT: Patient is currently taking Coumadin daily. Atrial pacin% Ventricular pacin% Battery: 12.4 yrs Additional comments: Device functioning appropriately. Normal device function. Patient to follow-up for continued monitoring every 3 months. Report prepared by Garett Payton RN Jose Longo MD [facility] ORDER RICARDO Final Result documented in this encounter Visit Diagnoses Diagnosis Sick sinus syndrome Sinoatrial node dysfunction Sick sinus syndrome Sinoatrial node dysfunction documented in this encounter Care Teams Hall Monitor Relationship Specialty Start Date End Date Mert Dumont MD [address] [place] [address] PCP - General Family Medicine 05/15/17 Benny Fairchild MD [address] [place] [address] Historical LMR Provider 12/27/16 2 Ambreen Little MD [address] [place] [address] Historical LMR Provider 12/27/16 2 documented as of this encounter Additional Source Comments The information contained in this document represents components of the legal health record. It is not the complete legal health record.[facility]
--- OUTSIDE RECORDS SUMMARY | 2024-11-05 13:47 | XMS_ITS | Encounter Summary ---
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 It is not the complete legal health record.[facility]
--- OUTSIDE RECORDS SUMMARY | 2024-11-05 13:48 | XMS_ITS | Encounter Summary ---
Author Organization [facility] Address [address] [place] [address] [place] [phone] Phone Care Team Providers Care Specialist Field Engineer Name Role Phone Benny Fairchild MD Unavailable [phone] Ambreen Little MD Unavailable Mert Dumont MD Primary Care Prov ider Encounter Details Date Type Department Care Team (Late st Contact Info) Description 07/04/2017 Ancillary Orders [facility] [address] [place] [address] Jose Longo MD [address] [place] [address] [place] [address] [email or web address] Social History Tobacco Use Types Packs/Day Years Used Date Smoking Tobacco: Former Cigarettes 1 40 1 958 - 7131 Smokeless Tobacco: Never Alcohol Use Standard Drinks/Week [...] 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 Not on file Not on file Not on savannah e documented as of this encounter Plan of Treatment Not on file documented as of this encounter Visit Diagnoses Not on filedocumented in this encounter Care Teams Specialist Field Engineer Relationship Specialty Start Date End Date Mert Dumont MD [facility] [place] [address] [email or web address] PCP - General Family Medicine 05/15/17 Benny Fairchild MD [address] [place] [address] Historical LMR Provider 12/27/16 2 Ambreen Little MD [facility] [place] [address] Historical LMR Provider 12/27/16 2 documented as of this encounter Additional Source Comments The information contained in this document represents components of the legal health record. It is not the complete legal health record.[facility]
--- OUTSIDE RECORDS SUMMARY | 2024-11-05 13:48 | XMS_ITS | Encounter Summary ---
Author Organization [facility] Address [address] [employer] [facility] [address] [place] [phone] Phone Care Team Providers Care Engraver Signature Name Role Phone Benny Fairchild MD Unavailable [phone] Ambreen Little MD Unavailable Mert Dumont MD Primary Care Prov ider Reason for Referral * Physical Therapy (Routine) - Closed Specialty Diagnoses / Procedures Referred By Contac t Referred To Contact Physical Therapy Diagnoses Encounter for rehabilitation System, Provider Not In, PhD [address] [address] Phone: tel: Referral ID Status Reason Start Date Expiration Date Visits Re quested Visits Authorized [id number] Closed 07/23/2017 07/23/2018 1 1 Encounter Details Date Type Department Care Team (Late st Contact Info) Description 07/23/2017 Transcribe Orders [facility] [address] [place] [address] [phone] Lacey Espinal NP [address] [place] [address] [phone] Encounter for rehabilitation (Primary Dx) Social History Tobacco Use Types [...] Scheduled Referrals Name Type Priority Associated Diagnoses Orde r Schedule Ambulatory referral to [facility] Physical Therapy Outpatient Referral Routine Encounter for rehabilitation Ordered: 07/23/2017 documented as of this encounter Visit Diagnoses Diagnosis Encounter for rehabilitation- Primary documented in this encounter Care Teams Engraver Signature Relationship Specialty Start Date End Date Mert Dumont MD [address] [place] [address] PCP - General Family Medicine 05/15/17 Benny Fairchild MD [address] [place] [address] Historical LMR Provider 12/27/16 2 Ambreen Little MD [facility] [place] [address] Historical LMR Provider 12/27/16 2 documented as of this encounter Additional Source Comments The information contained in this document represents components of the legal health record. It is not the complete legal health record.[facility]
--- OUTSIDE RECORDS SUMMARY | 2024-11-05 13:48 | XMS_ITS | Encounter Summary ---
Author Organization [facility] Address [address] [place] [address] Phone Care Team Providers Care Minute Clerk Name Role Phone Benny Fairchild MD Unavailable [phone] Ambreen Little MD Unavailable Mert Dumont MD Primary Care Prov ider Encounter Details Date Type Department Care Team (Late st Contact Info) Description 07/20/2017 Ancillary Orders Non-Invasive Cardiology [address] [place] [address] Jose Longo MD [address] [place] [address] [email or web address] SSS (sick sinus syndrome) Social History Tobacco Use Types Packs/Day Years [...] Date Job End 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 Not on file Not on file Not on savannah e documented as of this encounter Plan of Treatment Not on file documented as of this encounter Visit Diagnoses Diagnosis SSS (sick sinus syndrome) Sinoatrial node dysfunction documented in this encounter Care Teams Minute Clerk Relationship Specialty Start Date End Date Mert Dumont MD [address] [place] [address] [email or web address] PCP - General Family Medicine 05/15/17 Benny Fairchild MD [address] [place] [address] Historical LMR Provider 12/27/16 2 Ambreen Little MD [facility] [place] [address] Historical LMR Provider 12/27/16 2 documented as of this encounter Additional Source Comments The information contained in this document represents components of the legal health record. It is not the complete legal health record.[facility]
--- OUTSIDE RECORDS SUMMARY | 2024-11-05 13:48 | XMS_ITS | Encounter Summary ---
Author Organization [facility] Address [address] [place] [address] Phone Care Team Providers Care Nurse Informaticist Name Role Phone Benny Fairchild MD Unavailable [phone] Ambreen Little MD Unavailable Mert Dumont MD Primary Care Prov ider Reason for Referral * MRI/CAT Scan - Closed Specialty Diagnoses / Procedures Referred By Contac t Referred To Contact Radiology Diagnoses Vertigo Dizziness and giddiness Procedures MRI Brain Mert Dumont MD Phone: tel: fax: [email or web address] Referral ID Status Reason Start Date Expiration Date Visits Re quested Visits Authorized [id number] Closed 06/15/2017 06/15/2018 1 1 Encounter Details Date Type Department Care Team (Late st Contact Info) Description 06/15/2017 Ancillary Orders Virtual Department [address] [place] [phone] Mert Dumont MD [address] [place] [address] [phone] [email or web address] Vertigo; Dizziness and giddiness Social History Tobacco Use Types Packs/Day Years [...] documented as of this encounter Results * MRI BRAIN (INTERNAL AUDITORY CANAL) WITH AND WITHOUT CONTRAST (06/26/2017 9:52 AM EDT) Anatomical Region Laterality Modality Head Magnetic Resonan ce 06/26/2017 10:3 6 AM EDT Impressions 06/26/2017 11:10 AM EDT 1. No explanation for dizziness. 2. Findings consistent with mild chronic small vessel ischemia of the white matter. 3. Probable small, clinically insignificant developmental venous anomaly in the right parietal lobe. POS - [id number] Narrative 06/26/2017 11:10 AM EDT HISTORY: Dizziness. COMPARISON: None. TECHNIQUE: Exam performed on a 1.5 [place] high-field MRI scanner. Axial T2, T2*, T2 FLAIR, diffusion-weighted imaging with ADC map, and sagittal T1 of the whole brain, thin section axial T1, and 3-D axial high resolution bright fluid through the region of the IACs, followed by post-gadolinium axial T1 of the whole brain and post-gadolinium thin section axial and coronal T1 through the region of the IACs. FINDINGS: No findings suspicious for intracranial hemorrhage or hematomas. No suspicious intracranial masses. No evidence of acute infarction. Mild patchy T2/T2 FLAIR hyperintense change in the deep and periventricular white matter bilaterally. No areas enhance. Small focus of T2/T2 FLAIR hyperintensity within the right parietal lobe posterior lateral to the body of the right lateral ventricle. There is associated susceptibility artifact. Intra-articular canals and cerebellopontine angles appear normal. Ventricles are normal in size and configuration. Basal cisterns are patent. Normal flow-voids at the base of the skull. Trace of fluid within bilateral mastoid air cells. Paranasal sinuses appear essentially clear.. Procedure Note Ismael Yeboah MD - 06/26/2017 HISTORY: Dizziness. COMPARISON: None. TECHNIQUE: Exam performed on a 1.5 [place] high-field MRI scanner. AxialT2, T2*, T2 FLAIR, diffusion-weighted imaging with ADC map, and sagittalT1 of the whole brain, thin section axial T1, and 3-D axial highresolution bright fluid through the region of the IACs, followed bypost-gadolinium axial T1 of the whole brain and post-gadolinium thinsection axial and coronal T1 through the region of the IACs. FINDINGS: No findings suspicious for intracranial hemorrhage or hematomas. Nosuspicious intracranial masses. No evidence of acute infarction. Mild patchy T2/T2 FLAIR hyperintense change in the deep andperiventricular white matter bilaterally. No areas enhance. Small focusof T2/T2 FLAIR hyperintensity within the right parietal lobe posteriorlateral to the body of the right lateral ventricle. There is associatedsusceptibility artifact. Intra-articular canals and cerebellopontine angles appear normal. Ventricles are normal in size and configuration. Basal cisterns arepatent. Normal flow-voids at the base of the skull. Trace of fluid within bilateral mastoid air cells. Paranasal sinusesappear essentially clear.. IMPRESSION: 1. No explanation for dizziness. 2. Findings consistent with mild chronic small vessel ischemia of thewhite matter. 3. Probable small, clinically insignificant developmental venous anomalyin the right parietal lobe. POS - [id number] Mert Miller MD IMG MR HEAD/NECK F inal Result documented in this encounter Visit Diagnoses Diagnosis Vertigo Dizziness and giddiness Dizziness and giddiness Vertigo Dizziness and giddiness Dizziness and giddiness documented in this encounter Care Teams Nurse Informaticist Relationship Specialty Start Date End Date Mert Dumont MD [address] [place] [address] PCP - General Family Medicine 05/15/17 Benny Fairchild MD [address] [place] [address] Historical LMR Provider 12/27/16 2 Ambreen Little MD [address] [place] [address] Historical LMR Provider 12/27/16 2 documented as of this encounter Additional Source Comments The information contained in this document represents components of the legal health record. It is not the complete legal health record.[facility]
--- OUTSIDE RECORDS SUMMARY | 2024-11-05 13:48 | XMS_ITS | Clinical Summary ---
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 04/10/2019 Active apixaban (ELIQUIS) 5 mg tablet Take 5 mg by mouth 2 (two) times a day. Active losartan (COZAAR) 50 MG tabletIndication s:Hypertensive disorder TAKE 1 TABLET BY MOUTH EVERY DAY 90 tablet 3 08/01/2021 Active torsemide (DEMADEX) 5 MG tablet 08/09/2021 Active cholecalciferol (VITAMIN D3) 5,000 unit tablet Take 1,000 Units by mouth daily. Active metoprolol succinate (TOPROL-XL) 50 MG 24 hr tabletIndication s:Medication refill TAKE 1 TABLET(50 MG) BY MOUTH DAILY 90 tablet 3 11/02/2022 Active Active Problems Problem Noted Date Diagnosed Date Chronic midline low back pain 08/21/2021 Overview (08/21/2021): 80 yo female with hx of chronic back pain, previously treated at [facility] with excellent results I will obtain UTD xrays of lumbar spine Consider referral to PT and /or [facility] again Assessment & Plan (08/21/2021 7:58 PM EDT): 80 yo female with hx of chronic back pain, previously treated at [facility] with excellent results I will obtain UTD xrays of lumbar spine Consider referral to PT and /or [facility] again Preop examination 12/16/2020 Assessment & Plan (12/16/2020 2:51 PM EDT): Patient seen in the office today prior to upcoming right total hip replacement on 01/11/[address] [place] [address] Lee. She is denying any symptoms concerning for angina, heart failure or arrhythmias at this time. According to the revised cardiac risk index for preoperative risk, patient has a 6.0% chance of , [place] or cardiac arrest within 30 days of scheduled procedure consistent with a class II risk. Difficult to assess functional capacity due to limitation from orthopedic issue. She does not have an ischemic history and is asymptomatic. I do not believe there to be an absolute contraindication from a cardiac standpoint to proceeding with upcoming surgery. Closed fracture of proximal end of left fibula with routine healing 06/15/2020 Assessment & Plan (06/15/2020 10:45 AM EDT): Patient will continue to wear Stabilizer brace for therapy for left Fibular fracture. She will continue to follow with Orthopedic surgeon for monitoring, therapy. Osteoarthritis of right hip 03/23/2020 Assessment & Plan (08/21/2021 7:59 PM EDT): S/p R THR in 01/30 with excellent results Assessment & Plan (09/15/2020 10:39 AM EDT): Joint injection Joint injection site was identified. Injection site was swabbed with alcohol. Local anesthesia was obtained with ethyl chloride spray. Right lateral hip trochanter was injected with 40 mg Depo medrol and 1 ml of 1% Lidocaine. Hemostasis was obtained with pressure. A bandage was applied. Post injection care was discussed with the patient. Post injection activity was discussed with the patient. [facility] # [id number] [facility] # [id number] Lot # [id number] Exp. 04/02 Continue Cymbalta 30 mg once daily. Continue Tylenol Arthritis 650 mg As needed every 8 hours for additional joint pain relief. Assessment & Plan (06/15/2020 10:44 AM EDT): Will increase Cymbalta to 30 mg PO BID for OA hip pain relief. Tylenol Arthritis for additional hip pain relief as needed. Patient has seen Orthopedic surgeon who recommends hip replacement. Assessment & Plan (03/23/2020 11:16 AM EST): Joint injection Joint injection site was identified. Injection site was swabbed with alcohol. Local anesthesia was obtained with ethyl chloride spray. Lateral right hip trochanter was injected with 40 mg Depo medrol and 1 ml of 1% Lidocaine. Hemostasis was obtained with pressure. A bandage was applied. Post injection care was discussed with the patient. Post injection activity was discussed with the patient. [facility] # [id number] Lot # [id number] Exp. 04/02 Trochanteric bursitis 03/28/2019 Primary osteoarthritis of both hands 09/26/2018 Assessment & Plan (09/15/2020 10:39 AM EDT): Stable. Continue Cymbalta 30 mg once daily. Continue Tylenol Arthritis 650 mg As needed every 8 hours for additional joint pain relief. Positive YURIDIA (antinuclear antibody) 06/28/2018 Assessment & Plan (09/15/2020 10:36 AM EDT): Patient will monitor for any new autoimmune changes, symptoms. Assessment & Plan (06/15/2020 10:42 AM EDT): Patient will monitor for any new autoimmune symptoms, changes. No new changes on visit today. Hx of osteoarthritis 05/28/2018 Assessment & Plan (08/21/2021 7:59 PM EDT): Pt taking Cymbalta which she finds helpful and denies any AE Will continue Check labs CBC CMP Pain in both hands 05/28/2018 Assessment & Plan (09/15/2020 10:40 AM EDT): Stable. Continue Cymbalta 30 mg once daily. Continue Tylenol Arthritis 650 mg As needed every 8 hours for additional joint pain relief. Assessment & Plan (06/15/2020 10:46 AM EDT): Stable. Continue Cymbalta, and Tylenol Arthritis as needed. Assessment & Plan (03/23/2020 11:17 AM EST): Continue Cymbalta PO daily. Tylenol Arthritis as needed every 8 hours for additional hand pain relief. Pain of right hip joint 05/28/2018 Chest pain 09/28/2017 Overview (09/28/2017): DDX: pericardial effusion, abscess, pericarditis, musculoskeletal pain, pneumonia Hemodynamically stable at this time, no JVD, muffled heart sounds, or hypotension to suggest cardiac tamponade. Would like to know if this fluid collection is hemorrhagic, serous, or infectious. No subjective fevers, nausea, vomiting, good UOP. Denies other s/s of bleeding. Check CBC as well. F/u in [address] Longo. Also recommend repeat limited echo for reassessment of her pericardial effusion pending CT results. Pacemaker 07/20/2017 Assessment & Plan (09/28/2017 1:02 PM EDT): Normal functioning device on in office device check set to MVP, sensing impedances and thresholds are normal, 17% mode switches, paced in the atrium 45%, paced in the ventricle 1.5%. She feels like the leads are pulling and has new fluid collection so will check chest CT for placement as well. Assessment & Plan (07/20/2017 11:16 AM EDT): Device interrogated in office today, please see encounter for formal report. Pericardial effusion 07/20/2017 Assessment & Plan (09/28/2017 12:45 PM EDT): Mild progression to small-moderate effusion. Hemodynamically stable without evidence of tamponade. H/H slowly trending down. Checking chest CT and CBC. F/u 2 weeks. Advised if chest pain or SOB worsens she should go to the ER. Assessment & Plan (08/10/2017 1:07 PM EDT): Repeat limited echo shows return of small nonhemodynamically significant pericardial effusion. She denies chest pain or worsening shortness of breath. No JVD or pericardial friction rub on exam. Will repeat limited echo in 1 month for stability. Advised that she should call the office for chest pain, worsening SOB, lightheadedness, dizziness, fainting. Assessment & Plan (07/20/2017 11:44 AM EDT): EKG shows NSR with low voltage QRS, anteroseptal TWI, compared to 07/07/17 EKG QRS voltage lower in precordial leads. No friction rub, no muffled heart sounds, no JVD, VSS actually hypertensive SBP 180 on recheck. Pericardial effusion unlikely. Will repeat limited echo to check for stability. Prolonged QT interval 07/20/2017 Assessment & Plan (07/20/2017 5:31 PM EDT): QT improved compared to 06/29/17 EKG but still prolonged. Should continue to avoid QT prolonging agents especially while on amiodarone. Acute and subacute hepatic failure without coma 07/13/2017 Acute kidney failure with tubular necrosis 07/13 Nutritional anemia, unspecified 07/13/2017 Solitary pulmonary nodule 07/13/2017 Unspecified abnormalities of gait and mobility 0 07/13/2017 Weakness 07/13/2017 Nausea 07/03/2017 Assessment & Plan (07/03/2017 3:53 PM EDT): Likely due to acute GI illness. Admits to subjective fevers and chills, nasal congestion and rhinorrhea. Will avoid QT prolonging medications including serotonin and dopamine antagonists while on amiodarone. Will try Dramamine for her nausea. Recommended stacy rosi and a bland diet and that she stay adequately hydrated. If no improvement in her symptoms in the next 3 days to 1 week recommend she follow-up with her PCP. Sick sinus syndrome 06/29/2017 Assessment & Plan (12/16/2020 2:26 PM EDT): Status post Medtronic pacemaker which was interrogated in the office on 11/26/2020 with Beatriz and shown to be functioning normally. Continue remote interrogation in 3 months and in office in 6 months. Patient has no device related complaints at this time. Assessment & Plan (08/10/2017 1:03 PM EDT): Denies any device related complaints. Scheduled for a remote check in October. PAF (paroxysmal atrial fibrillation) 06/28/2017 Assessment & Plan (05/23/2021 11:55 AM EDT): Pacemaker interrogation today shows she has a 0.2% atrial fibrillation burden. She does a paced 100% of the time. She is on amiodarone 100 mg daily, metoprolol 50 mg daily, apixaban 5 mg twice daily she remain on these medications without change. Assessment & Plan (12/16/2020 2:26 PM EDT): Patient is rhythm controlled with amiodarone 100 mg daily. She is adequately anticoagulated with Eliquis 5 mg twice a day without any bleeding complaint which we will continue. Continue metoprolol 50 mg daily. She is not endorsing any symptoms from her arrhythmia at this time. Assessment & Plan (05/17/2018 1:53 PM EST): She is on amiodarone for rhythm control. Her dose was recently reduced to 100 mg daily. Continue with Coumadin. Assessment & Plan (09/28/2017 12:43 PM EDT): Continues on Amio 200 mg daily. She wants to reduce this due to SOB. Will discuss with Dr. Longo before making changes. Continue coumadin, goal INR 2-3. She wants to go back to DOAC but I advised given her current situation it is safer to keep current plan in case she needs acute reversal and we can keep a close eye on her INR. Can consider switching this in the future. Assessment & Plan (08/10/2017 1:06 PM EDT): Asymptomatic with infrequent episodes of atrial fibrillation. Now continues on amiodarone 200 mg once daily for maintenance. Continue metoprolol 50 mg twice daily. Continues on Coumadin for anticoagulation and reports that INRs have been supratherapeutic but now within range most recently 2.9. Denies any signs or symptoms of bleeding. Will continue to monitor. Recommend yearly thyroid function and chest x-ray while on Amio. Assessment & Plan (07/20/2017 5:29 PM EDT): She is asymptomatic with infrequent episodes of atrial fibrillation. Reduce amiodarone to 400 mg once daily and keep at this dose until follow-up in 4 weeks. Will continue metoprolol at current dose, usually in sinus rhythm. Anticoagulation was resumed by outside provider she is now on Coumadin and followed by the Coumadin clinic, goal INR 2-3. Assessment & Plan (07/03/2017 3:54 PM EDT): Continues on metoprolol 50 mg daily, and amiodarone 400 mg once daily. Amiodarone reduced from twice daily but this has not relieved her nausea. Rates not well controlled but not surprising given acute illness. She is anticoagulated on Pradaxa. She should keep her scheduled follow-up in July for reassessment of her rate control once her illnesses past. Assessment & Plan (06/29/2017 9:45 AM EDT): New diagnosis of atrial fibrillation documented with EKG in the ED. No rate control medications currently on board. Bradycardia observed in the ED after one dose of IV diltiazem. - Admitted to telemetry. Multiple 4 second conversion pauses at midnight and 6 AM after 25 mg metoprolol given last night. Sinus rhythm not sustained with quick conversion back to AF. - Cardiology consult appreciated. No now for planned pacemaker implantation later today - Echocardiogram requested - TSH today within normal limits 2.36. No evidence of anemia or electrolyte abnormalities on lab work. - Will need initiation of anticoagulation after pacemaker implantation for CVA risk reduction. CHADsVASc 4. Pradaxa 150 mg PO BID recommended, discussed with the patient by Dr. Morel. Reversible NOAC desired, patient does not want Coumadin Hypertensive disorder 06/28/2017 Assessment & Plan (05/23/2021 11:54 AM EDT): Blood pressure is 130/76 here in the office today. Her medications include losartan 50 mg daily, Toprol 50 mg daily, furosemide 40 mg daily. She follows a heart healthy diet and does not add sodium to her diet. She does not exercise very much. She is encouraged to follow heart healthy diet including low-sodium and to start exercising. Assessment & Plan (12/16/2020 2:28 PM EDT): Blood pressure in the office 128/82 and patient reported blood pressures at home 127/72 regularly. Continue current meds and doses including metoprolol 50 mg daily and losartan 50 mg daily. Assessment & Plan (05/17/2018 1:55 PM EST): Her blood pressure today is very high. Sounds like she was taken off of her metoprolol. I have changed her HCTZ to 20 mg of furosemide daily. Hopefully this will help with her blood pressure. Also, I have asked her to increase her losartan to 50 mg daily. She has a previously arranged appointment with Dr. Longo in July. She will have labs done next week. Assessment & Plan (09/28/2017 12:40 PM EDT): 160/66 on recheck, usually well controlled on HCTZ. Could be elevated 2/2 pain. Continue to monitor. Assessment & Plan (08/10/2017 1:02 PM EDT): Better controlled today 144/64 on recheck. Encouraged continued salt reduction for goal SBP less than 130. Can consider increasing HCTZ to 50 mg she states she recently finished a course of Lasix. Follow-up in 1 month. Assessment & Plan (07/20/2017 5:30 PM EDT): SBP 180 on recheck. Start HCTZ 25 mg daily this should help with her shortness of breath and lower extremity swelling as well. Will continue to monitor for goal SBP less than 130. Assessment & Plan (07/03/2017 3:54 PM EDT): Well-controlled on current medications. Assessment & Plan (06/29/2017 9:43 AM EDT): Mild hypertension noted with systolic blood pressure in the 150s. Patient not on any antihypertensive medications due to multiple medication intolerances. Lisinopril, amlodipine and hydrochlorothiazide are all on her allergy list. Rate control for paroxysmal A. fib will likely address blood pressure as well, after pacer. Held currently due to prolonged pauses. Await further cardiology recommendations. Shortness of breath 06/28/2017 Assessment & Plan (05/23/2021 11:55 AM EDT): She reports has been ongoing for some time but the shortness of breath has gotten worse. She has not had an echocardiogram or stress test since 2018. We will obtain both of those and see her in follow-up after that. She reports an increase in shortness of breath with exertion. She states that she gets so short of breath that she becomes very diaphoretic. The diaphoresis Assessment & Plan (08/10/2017 1:03 PM EDT): Stable. Improving with the addition of HCTZ, short trial Lasix, and inhalers. We'll continue to monitor. Assessment & Plan (07/20/2017 5:33 PM EDT): VSS. EKG in the office today shows sinus rhythm heart rate 60 bpm, low voltage QRS and precordial leads, narrow QRS, prolonged QTC 498 ms, no acute ST-T wave changes, compared to 06/29/17 EKG there is lower voltage QRS in V3 through V5 possibly due to lead placement, QTC is shorter and PACs no longer present. Check CBC for anemia on a/c with h/o pericardial effusion, BMP for recent ARF, and pro-BNP for DCHF. Likely acute on chronic DCHF, she reports compliance with salt reduction, did have rapid AF a couple days ago. Start HCTZ 25 mg daily. Recheck BMP in 1 week. Consider sleep study in the future. Assessment & Plan (06/29/2017 9:44 AM EDT): Secondary to episodic atrial fibrillation with RVR - d-dimer was elevated with bilateral leg pain. CTPA completed to r/o PE. Bilateral leg pain 06/28/2017 Assessment & Plan (05/17/2018 1:56 PM EST): She has lot of lower extremity swelling which is not so bad in the morning but worse as the day goes on. She is describing some venous claudication. On exam, she has a lot of venous stasis skin discoloration. I have asked her to have an ultrasound of her lower extremities with reflux. I will be in touch with her about those results. In the meantime, we have addressed the importance of a low-sodium diet. She should retry her compression stockings and elevate her legs several times a day. Assessment & Plan (06/29/2017 9:45 AM EDT): Bilateral leg tenderness to palpation which has been present for some time. Previously discussed with PCP. Patient very active with frequent exercise. CTA negative for PE. Will hold off on further imaging for now. Resolved Problems Problem Noted Date Diagnosed Date Resolved Date Acute right ankle pain 06/28/201808/21 Assessment & Plan (09/15/2020 10:40 AM EDT): Stable. Continue Cymbalta 30 mg once daily. Continue Tylenol Arthritis 650 mg As needed every 8 hours for additional joint pain relief. Assessment & Plan (06/15/2020 10:46 AM EDT): Stable. Continue Cymbalta, and Tylenol Arthritis as needed. Foot pain, right 05/28/2018 08/21/2021 Bilateral edema of lower extremity 07/20/2017 08/21/2021 Assessment & Plan (05/17/2018 1:59 PM EST): She has lower extremity edema which I believe is due to venous insufficiency. We are checking an ultrasound. She is otherwise euvolemic on exam. Lungs are clear and no JVD. I have asked her to stop the HCTZ and start furosemide 20 milligrams daily. She will get labs next week. Assessment & Plan (07/20/2017 11:40 AM EDT): Was resolved at time of discharge. Now 2+ bilaterally. Will start HCTZ 25 mg daily. Cont salt reduction, leg elevation, and compression stockings. Immunizations Immunization Administration Dates Next Due COVID-19 (Pre-01/01) Jef Vaccine, rS-Ad26, PF 05/22/2020 INFLUENZA, SPLIT VIRUS, TRIV ALENT W/ PRESERVATIVE IM 11/22/2011,12/14/2009 Influenza High-Dose Quadriva lent Preservative Free IM 12/09/2019 Influenza High-Dose Trivalen t Preservative Free IM 12/11/2016,01/25/2016,11/10/2014 Influenza Quadrivalent Preservative Free IM 07/2013,12/06/2012 Influenza Trivalent Adjuvant ed Preservative free IM 11/30/2018,12/12/2017 Influenza, Unspecified Formulation 03/24/2004 Pneumococcal conjugate PCV13 03/31/2015 Pneumococcal polysaccharide PPSV23 02/20/2008 Pneumococcal, Unspecified Formulation 12/11/2016 Td (adult),2 Lf Tetanus Toxo id, PF, Adsorbed 06/21/2020 Td, unspecified formulation 03/26/2007 Tdap 12/14/2009 Zoster live 04/12/2009 Zoster recombinant 02/07/2018,11/14/2017 Family History Medical History Relation Comments Coronary artery disease Brother History CABG Stroke Father Hypertension Mother Relation Status Comments Brother Alive Father age 59 Mother Sister unknown history, not in contact Social History Tobacco Use Types Packs/Day Years Used Date Smoking Tobacco: Former Cigarettes 1 40 1 958 - 1998 Smokeless Tobacco: Never Tobacco Cessation:Counseling Given: Not Answered Alcohol Use Standard Drinks/Week Comments Yes 0 [...] 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 Not on file Not on file Not on [place] e Last Filed Vital Signs Vital Sign Reading Time Taken Comments Blood Pressure 122/68 01/31/2022 10:26 AM EST Pulse 85 01/31/2022 10:03 AM EST Temperature 37 C (98.6 F) 08/10/2020 1:03 PM EDT Respiratory Rate 16 08/19/2021 11:5 3 AM EDT Oxygen Saturation 99% 01/31/2022 10: 03 AM EST Inhaled Oxygen Concentration - - Weight 100.3 kg (221 lb 3.2 oz) 022 10:03 AM EST Height 162.6 cm (5' 4.02 ) 01/31/2022 1 0:03 AM EST Body Mass Index 37.95 01/31/2022 10:03 AM EST Plan of Treatment Health Maintenance Due Date Last Done Comments DEPRESSION SCREENING 1952 HEPATITIS A VACCINES (1 of 2 - Risk 2-dose series) 1960 OSTEOPOROSIS SCREENING INITIAL (ONE-TIME) 2006 RSV VACCINE (1 - 1-dose 75+ series) 2016 TSH LEVEL 06/29/2018 06/29/2017 ALT LEVEL (ALANINE AMINOTRANSFERASE) 06/15/2021 06/15/2020, 12/24/2019, 12/27/2018, Additional history exists CREATININE LEVEL 06/15/2021 06/15/2020, , 12/27/2018, Additional history exists POTASSIUM LEVEL 06/15/2021 06/15/2020, 12/10, 12/27/2018, Additional history exists BLOOD PRESSURE 07/31/2022 01/31/2022 COVID-19 VACCINE ( season) 2023 07/02/2021, 07/02/2021, 01/20/2021, Additional history exists Adult Td,Tdap Booster 06/21/2030 06/21/2020 , 04/07/2019, 12/14/2009, Additional history exists PNEUMOCOCCAL VACCINES (50+ years) Completed 03/31/2015, 02/20/2008 ZOSTER VACCINES Completed 02/07/2018, 07/2017, 04/12/2009 HIB VACCINES Aged Out No longer eligi ble based on patient's age to complete this topic MENINGOCOCCAL VACCINES (ACWY) Aged Out No longer eligible based on patient's age to complete this topic MENINGOCOCCAL VACCINES (B) Aged Out N o longer eligible based on patient's age to complete this topic Medical Devices Implanted Type 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 Device Identifier Shelf Expiration Date Model / Serial / Lot Lead Pacemaker Capsure Fix Novus Is-1 Bi Atr/Vntr Betty 52 Cm - [id number] Implanted:Qty : 1 on 06/29/2017 by Jose Longo MD at [facility] Lead [employer] [id number] 03/01/2019 [id number] / [id number] / Lead Pacemaker Capsure Fix Novus Is-1 Bi Atr/Vntr Betty 45 Cm - [id number] Implanted:Qty : 1 on 06/29/2017 by Jose Longo MD at [facility] Lead Heart [employer] 03/01/2019 [id number] / / Device Pacemaker [place] Xt Mri - [id number] Implanted:Qty : 1 on 06/29/2017 by Jose Longo MD at [facility] Pacemaker [employer] [id number] 11/06/2018 [id number] / [id number] / Procedures Procedure Name Priority Date/Time Associated Diagnosis Comments COMPREHENSIVE METABOLIC PANEL Routine 06/15/2020 2:08 PM EDT Positive YURIDIA (antinuclear antibody) Primary osteoarthritis of both hands Trochanteric bursitis of right hip Bilateral leg pain TSH WITH REFLEX Routine 06/29/2017 5:19 AM EDT from Last 3 Months or Most Recently Relevant to Health Maintenance Results * (ABNORMAL) Comprehensive metabolic panel (06/15/2020 2:08 PM EDT) SODIUM 135 133 - 146 mmol/L [facility] POTASSIUM 4.5 3.3 - 5.1 mmol/L [facility] CHLORIDE 97 96 - 108 mmol/L [facility] CO2 29 21 - 35 mmol/L [facility] BUN 10 6 - 19 mg/dL [facility] CREATININE 0.70 0.5 - 1.5 mg/dL [facility] GLUCOSE 101(H) 70 - 99 mg/dL [facility] ALBUMIN 3.7(L) 3.9 - 4.8 g/dL [facility] TOTAL PROTEIN 6.6 6.5 - 8.0 g/dL [facility] CALCIUM 8.8 8.4 - 10.3 mg/dL [facility] ALKALINE PHOSPHATASE 108 39 - 117 U/L [facility] TOTAL BILIRUBIN 0.4 0.0 - 1.2 mg/dL [facility] AST 33 0 - 37 U/L [facility] ALT 16 0 - 40 U/L [facility] GLOBULIN 2.9 1 - 4.8 g/dL [facility] EGFR 83 >59 mL/min/1.7 3m2 [facility] Comment:Estimated glomerular filtration rate calculated using the CKD-EPI equation. ANION GAP 14 10 - 20 mmol/L [facility] Blood 06/15/2020 2:08 PM EDT 06/15/2020 2:12 PM EDT Demetri VALDEZ LAB BLOOD ORDERABLES Fi nal Result [address] [id number] * TSH with reflex (06/29/2017 5:19 AM EDT) TSH 2.36 0.27 - 4.20 uIU/mL [facility] Blood 06/29/2017 5:19 AM EDT 06/29/2017 6:33 AM EDT Vesna Vera PA-C LAB BLOOD ORDERABLES Final Result Performing Organization Address City/[facility]/ZIP Co de Phone Number [address] [address] from Last 3 Months or Most Recently Relevant to Health Maintenance Insurance MEDICARE PART A & B [employer] MEDEX SUPPLEMENT MEDICARE PART A & B [employer] MEDEX SUPPLEMENT MEDICARE PART A & B [facility] MEDEX SUPPLEMENT MEDICARE PART A & B [employer] MEDEX SUPPLEMENT MEDICARE PART A & B [employer] MEDEX SUPPLEMENT MEDICARE PART A & B Member Subscriber Plan / Payer (Ef fective 2006-Present) Name:Yina Rutledge Member ID:[id number] Relation to Subscriber:Self Name:Yina Rutledge Subscriber ID:[id number] Payer ID:[id number] Group ID:Not on file Type:Medicare Address: [employer] [address] [place] [id number] [employer] MEDEX SUPPLEMENT MEDICARE PART A & B [employer] MEDEX SUPPLEMENT MEDICARE PART A & B [employer] MEDEX SUPPLEMENT MEDICARE PART A & B [employer] MEDEX SUPPLEMENT Advance Directives For more information, please contact: [phone] (9AM - 5PM 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 It is not the complete legal health record.[facility]
--- OUTSIDE RECORDS SUMMARY | 2024-11-05 13:48 | XMS_ITS | Encounter Summary ---
Author Organization [facility] Address [address] [place] [address] [place] [address] Phone Care Team Providers Care Curator Zoological Museum Name Role Phone Benny Fairchild MD Unavailable [phone] Ambreen Little MD Unavailable Mert Dumont MD Primary Care Prov ider Encounter Details Date Type Department Care Team (Late st Contact Info) Description 06/15/2017 Procedure Pass [facility], [address] [place] [address] Social History Tobacco Use Types Packs/Day Years [...] on filedocumented in this encounter Care Teams Curator Zoological Museum Relationship Specialty Start Date End Date Mert Dumont MD [address] [place] [address] PCP - General Family Medicine 05/15/17 Benny Fairchild MD [address] [place] [address] Historical LMR Provider 12/27/16 2 Ambreen Little MD [address] [place] [address] Historical LMR Provider 12/27/16 2 documented as of this encounter Additional Source Comments The information contained in this document represents components of the legal health record. It is not the complete legal health record.[facility]
--- OUTSIDE RECORDS SUMMARY | 2024-11-05 13:48 | XMS_ITS | Encounter Summary ---
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 Not on file Not on savannah e documented as of this encounter Plan of Treatment Not on file documented as of this encounter Visit Diagnoses Not on filedocumented in this encounter Care Teams Demurrage Clerk Relationship Specialty Start Date End Date Mert Dumont MD [address] [place], [place] [phone] [email or web address] PCP - General Family Medicine 05/15/17 Benny Fairchild MD [address] [place] [address] Historical LMR Provider 12/27/16 2 Ambreen Gonzalez MD [address] [place] [address] Historical LMR Provider 12/27/16 2 documented as of this encounter Additional Source Comments The information contained in this document represents components of the legal health record. It is not the complete legal health record.[facility]
--- OUTSIDE RECORDS SUMMARY | 2024-11-05 13:48 | XMS_ITS | Encounter Summary ---
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 Not on file Not on savannah e documented as of this encounter Plan of Treatment Not on file documented as of this encounter Visit Diagnoses Not on filedocumented in this encounter Care Teams Run Lead Relationship Specialty Start Date End Date Mert Dumont MD [address] [place] [address] [email or web address] PCP - General Family Medicine 05/15/17 Benny Fairchild MD [address] [place] [address] Historical LMR Provider 12/27/16 2 Ambreen Gonzalez MD [address] [place] [address] Historical LMR Provider 12/27/16 2 documented as of this encounter Additional Source Comments The information contained in this document represents components of the legal health record. It is not the complete legal health record.[facility]
--- OUTSIDE RECORDS SUMMARY | 2024-11-05 13:48 | XMS_ITS | Encounter Summary ---
Author Organization [facility] Address [facility] [employer] [address] [address] Phone Care Team Providers Care Performing Arts Road Manager Name Role Phone Benny Fairchild MD Unavailable [phone] Ambreen Little MD Unavailable Mert Dumont MD Primary Care Prov ider Reason for Referral * Physical Therapy (Routine) - Closed Specialty Diagnoses / Procedures Referred By Conttea t Referred To Contact Physical Therapy Diagnoses Encounter for rehabilitation System, Provider Not In, PhD [address] [address] Phone: tel: Referral ID Status Reason Start Date Expiration Date Visits Re quested Visits Authorized [id number] Closed 08/23/2017 03/11/2018 99 [phone] Encounter Details Date Type Department Care Team (Late st Contact Info) Description 08/23/2017 Transcribe Orders [facility] [address] [place] [address] Mert Dumont MD [address] [place] [address] [phone] [email or web address] Encounter for rehabilitation (Primary Dx) Social History [...] 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 Not on file Not on savannah e documented as of this encounter Plan of Treatment Not on file documented as of this encounter Procedures Procedure Name Priority Date/Time Associated Diagnosis Comments AMB REFERRAL TO [facility] PHYSICAL THERAPY Routine 10/03/2017 11:56 AM EDT Encounter for rehabilitation documented in this encounter Results * Ambulatory referral to [facility] Physical Therapy (10/03/2017 11:56 AM EDT) us Provider Not In System PhD AMB [facility] REFERRALS Fin al Result documented in this encounter Visit Diagnoses Diagnosis Encounter for rehabilitation- Primary documented in this encounter Care Teams Performing Arts Road Manager Relationship Specialty Start Date End Date Mert Dumont MD [address] [place] [address] PCP - General Family Medicine 05/15/17 Benny Fairchild MD [address] [place] [address] Historical LMR Provider 12/27/16 2 Ambreen Little MD [facility] [place] [address] Historical LMR Provider 12/27/16 2 documented as of this encounter Additional Source Comments The information contained in this document represents components of the legal health record. It is not the complete legal health record.[facility]
--- OUTSIDE RECORDS SUMMARY | 2024-11-05 13:48 | XMS_ITS | Encounter Summary ---
Author Organization [facility] Address [address] [facility] [address] [place] [address] Phone Care Team Providers Care Claims Adjuster Name Role Phone Benny Fairchild MD Unavailable [phone] Ambreen Little MD Unavailable Mert Dumont MD Primary Care Prov ider Encounter Details Date Type Department Care Team (Late st Contact Info) Description 09/28/2017 Procedure Pass [facility], Ct Scan - [address] [id number] Social History Tobacco Use Types Packs/Day Years Used Date Smoking Tobacco: Former Cigarettes 1 40 1 818 - 2351 Smokeless Tobacco: Never Alcohol Use Standard Drinks/Week [...] 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 Not 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 Not on savannah e documented as of this encounter Plan of Treatment Not on file documented as of this encounter Visit Diagnoses Not on filedocumented in this encounter Care Teams Claims Adjuster Relationship Specialty Start Date End Date Mert Dumont MD [address] [place], [place] [phone] [email or web address] PCP - General Family Medicine 05/15/17 Benny Fairchild MD [address] [place] [address] Historical LMR Provider 12/27/16 2 Ambreen Little MD [address] [place] [address] Historical LMR Provider 12/27/16 2 documented as of this encounter Additional Source Comments The information contained in this document represents components of the legal health record. It is not the complete legal health record.[facility]
--- OUTSIDE RECORDS SUMMARY | 2024-11-05 13:48 | XMS_ITS | Encounter Summary ---
Author Organization [facility] Address [address] [place] [address] [place] [address] Phone Care Team Providers Care Customer Care Assistant Name Role Phone Benny Fairchild MD Unavailable [phone] Ambreen Little MD Unavailable Mert Dumont MD Primary Care Prov ider Encounter Details Date Type Department Care Team (Late st Contact Info) Description 07/04/2017 Ancillary Orders Non-Invasive Cardiology [address] [place] [address] Jose Longo MD [address] [facility] [place] [address] [email or web address] Sick sinus syndrome Social History Tobacco Use Types Packs/Day Years Used Date Smoking Tobacco: Former Cigarettes 1 40 1 958 - 0371 Smokeless Tobacco: Never Alcohol Use Standard Drinks/Week [...] Date 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 No device related complaints. Indication for device: SSS. Examination: Device type: Pacemaker Blaster Helper: Medtronic Mode: AAIR-DDDR LRL/UPL: 60/130 bpm Mode switches: 0 High V rates: 0 Thresholds, impedances, and sensing stable. AF/AT: Patient is currently taking warfarin daily. Atrial pacin% Ventricular pacin% Battery: 13 yrs Additional comments: Device functioning appropriately. Normal device function. Patient to follow-up for continued monitoring every 3 months. Report prepared by Garett Payton RN us Jose Longo MD CV CARDIAC SERVICES ORDER RICARDO Final Result documented in this encounter Visit Diagnoses Diagnosis Sick sinus syndrome Sinoatrial node dysfunction Sick sinus syndrome Sinoatrial node dysfunction documented in this encounter Care Teams Customer Care Assistant Relationship Specialty Start Date End Date Mert Dumont MD [address] [place] [address] PCP - General Family Medicine 05/15/17 Benny Fairchild MD [address] [place] [address] Historical LMR Provider 12/27/16 2 Ambreen Little MD [address] [place] [address] Historical LMR Provider 12/27/16 2 documented as of this encounter Additional Source Comments The information contained in this document represents components of the legal health record. It is not the complete legal health record.[facility]
--- OUTSIDE RECORDS SUMMARY | 2024-11-05 13:48 | XMS_ITS | Encounter Summary ---
Author Organization [facility] Address [address] [facility] [address] [place] [address] Phone Care Team Providers Care Professional Skateboarder Name Role Phone Benny Fairchild MD Unavailable [phone] Ambreen Little MD Unavailable Mert Dumont MD Primary Care Prov ider Encounter Details Date Type Department Care Team (Late st Contact Info) Description 06/28/2017 Procedure Pass [facility], Ct Scan - [address] [phone] Social History Tobacco Use Types Packs/Day Years Used Date Smoking Tobacco: Former Cigarettes 1 40 1 648 - 1368 Smokeless Tobacco: Never Alcohol Use Standard Drinks/Week [...] 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 Not 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 Not on savannah e documented as of this encounter Plan of Treatment Not on file documented as of this encounter Visit Diagnoses Not on filedocumented in this encounter Care Teams Professional Skateboarder Relationship Specialty Start Date End Date Mert Dumont MD [address] [place], [place] [phone] [email or web address] PCP - General Family Medicine 05/15/17 Benny Fairchild MD [address] [place] [address] Historical LMR Provider 12/27/16 2 Ambreen Little MD [address] [place] [address] Historical LMR Provider 12/27/16 2 documented as of this encounter Additional Source Comments The information contained in this document represents components of the legal health record. It is not the complete legal health record.[facility]
--- OUTSIDE RECORDS SUMMARY | 2024-11-05 13:48 | XMS_ITS | Encounter Summary ---
Author Organization [facility] Address [address] [place] [address] [place] [address] Phone Care Team Providers Care Shipper Name Role Phone Benny Fairchild MD Unavailable [phone] Ambreen Little MD Unavailable Mert Dumont MD Primary Care Prov ider Encounter Details Date Type Department Care Team (Late st Contact Info) Description 07/20/2017 Ancillary Orders [facility] [address] [place] [address] Jose Longo MD [address] [place] [address] [place] [address] [email or web address] Social History Tobacco Use Types Packs/Day Years Used Date Smoking Tobacco: Former Cigarettes 1 40 1 958 - 7838 Smokeless Tobacco: Never Alcohol Use Standard Drinks/Week [...] on filedocumented in this encounter Care Teams Shipper Relationship Specialty Start Date End Date Mert Dumont MD [facility] [place] [address] [email or web address] PCP - General Family Medicine 05/15/17 Benny Fairchild MD [address] [place] [address] Historical LMR Provider 12/27/[address] [facility] [place] [address] Historical LMR Provider 12/27/16 2 documented as of this encounter Additional Source Comments The information contained in this document represents components of the legal health record. It is not the complete legal health record.[facility]
--- OUTSIDE RECORDS SUMMARY | 2024-11-05 13:48 | XMS_ITS | Encounter Summary ---
Author Organization 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 It is not the complete legal health record.[facility]
--- OUTSIDE RECORDS SUMMARY | 2024-11-05 13:48 | XMS_ITS | Encounter Summary ---
Author Organization [facility] Address [address] [place] [address] [place] [address] Phone Care Team Providers Care Sampling Expert Name Role Phone Benny Fairchild MD Unavailable [phone] Ambreen Little MD Unavailable Mert Dumont MD Primary Care Prov ider Encounter Details Date Type Department Care Team (Late st Contact Info) Description 03/24/2019 Ancillary Orders Non-Invasive Cardiology [address] [place] [address] Jose Longo MD [address] [place] [address] [email or web address] SSS (sick sinus syndrome) Social History [...] * DEVICE CHECK: PPM REMOTE INTERROGATION WITH INSPECTOR CANNED FOOD RECONDITIONING REVIEW (05/05/2019 1:18 PM EST) Narrative Jose Longo MD - 05/09/2019 5:52 PM EST Reason for appointment: Remote pacemaker interrogation HPI: Routine 3 month remote pacemaker interrogation. No device related complaints. Indication for device: SSS. Examination: Device type: Pacemaker Physical Science Professor: Medtronic Mode: AAIR-DDDR LRL/UPL: 60/130 bpm Mode switches: 1 brief High V rates: 0 Thresholds, impedances, and sensing stable. AF/AT: Patient is currently taking Coumadin daily. Atrial pacin% Ventricular pacin.1% Battery: 11 yrs Additional comments: Device functioning appropriately. Normal device function. Patient to follow-up for continued monitoring every 3 months. Report prepared by Garett Payton RN Jose Longo MD CV CARDIAC SERVICES ORDER RICARDO Final Result documented in this encounter Visit Diagnoses Diagnosis SSS (sick sinus syndrome) Sinoatrial node dysfunction SSS (sick sinus syndrome) Sinoatrial node dysfunction documented in this encounter Care Teams Sampling Expert Relationship Specialty Start Date End Date Mert Dumont MD [address] [place] [address] PCP - General Family Medicine 05/15/17 Benny Fairchild MD [address] [place] [address] Historical LMR Provider 12/27/16 2 Ambreen Little MD [address] [place] [address] Historical LMR Provider 12/27/16 2 documented as of this encounter Additional Source Comments The information contained in this document represents components of the legal health record. It is not the complete legal health record.[facility]
--- OUTSIDE RECORDS SUMMARY | 2024-11-05 13:49 | XMS_ITS | Encounter Summary ---
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 Not on file Not on savannah e documented as of this encounter Plan of Treatment Not on file documented as of this encounter Visit Diagnoses Not on filedocumented in this encounter Care Teams Cloth Tearer Relationship Specialty Start Date End Date Mert Dumont MD [address] [place] [address] [email or web address] PCP - General Family Medicine 05/15/17 Benny Fairchild MD [address] [place] [address] Historical LMR Provider 12/27/16 2 Ambreen Little MD [address] [place] [address] Historical LMR Provider 12/27/16 2 documented as of this encounter Additional Source Comments The information contained in this document represents components of the legal health record. It is not the complete legal health record.[facility]
--- OUTSIDE RECORDS SUMMARY | 2024-11-05 13:49 | XMS_ITS | Encounter Summary ---
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 Not on file Not on savannah e documented as of this encounter Plan of Treatment Not on file documented as of this encounter Visit Diagnoses Not on filedocumented in this encounter Care Teams Crane Follower Relationship Specialty Start Date End Date Mert Dumont MD [address] [place] [address] [email or web address] PCP - General Family Medicine 05/15/17 Benny Fairchild MD [address] [place] [address] Historical LMR Provider 12/27/16 2 Ambreen Little MD [address] [place] [address] Historical LMR Provider 12/27/16 2 documented as of this encounter Additional Source Comments The information contained in this document represents components of the legal health record. It is not the complete legal health record.[facility]
--- OUTSIDE RECORDS SUMMARY | 2024-11-05 13:49 | XMS_ITS | Encounter Summary ---
Author Organization [facility] Address [address] [facility] [address] [place] [address] Phone Care Team Providers Care Wood Caulker Name Role Phone Benny Fairchild MD Unavailable [phone] Ambreen Little MD Unavailable Mert Dumont MD Primary Care Prov ider Reason for Referral * MRI/CAT Scan - Closed Specialty Diagnoses / Procedures Referred By Contac t Referred To Contact Radiology Diagnoses Essential hypertension Dyspnea on exertion Procedures NC Myocardial Perfusion Stress Single NC Myocardial Perfusion Pharmacologic Stress Multiple Jose Longo MD Phone: tel: fax: mailto:[email or web address] Referral ID Status Reason Start Date Expiration Date Visits Re quested Visits Authorized [id number] Closed 01/16/2018 01/16/2019 1 1 Encounter Details Date Type Department Care Team (Latest Contact Info) Description 02/19/2018 Ancillary Orders [facility] [address], [address] [place] [address] Jose Longo MD [address] [place] [address] [email or web address] Essential hypertension; Dyspnea on exertion Social History Tobacco Use Types Packs/Day Years [...] documented as of this encounter Results * NC Myocardial Perfusion Stress Single (02/18/2018 10:54 AM EST) Nuc Stress EF 57 % LV Systolic Volume Index 35 mL/m2 LV Diastolic Volume Index 82 mL/m2 Anatomical Region Laterality Modality Heart Ultrasound Narrative 02/22/2018 8:22 AM EST Normal study. There is no evidence of myocardial infarction or ischemia. Normal LV size and function with no regional wall motion abnormalities. Very low likelihood of hemodynamically significant coronary artery disease. Low risk study for myocardial events or cardiac in the next two years. Nuclear Study Quality Overall image quality is good. The test performed was a Stress Only Pharmacologic exercise stress test. The stress images were obtained 45 minutes following the radiopharmaceutical injection.. There are no artifacts present. Study was successfully gated. Response to Stress BMI:33.23 0.4 mg of Lexiscan given IV push as per protocol. Test done as a pharmacologic due to poor functional capacity secondary to shortness of breath as well as pacemaker in place. 1. Baseline EKG showed normal sinus rhythm. No ischemic EKG changes following the injection of Lexiscan. 2. No chest pain. The patient had flushing and lightheadedness following the injection which resolved after about 2 minutes. 3. Normal hemodynamic response to injection. 4. No ectopy. Conclusion: No ischemic EKG changes with pharmacologic testing. Nuclear images pending and will be reported separately. Donya Davis NP . Stress Function Comments Post-stress ejection fraction was 57%. Stress end diastolic index: 82 mL/m2. Stress end systolic index: 35 mL/m2. Nuclear Prior Study There is no prior study available for comparison. Perfusion Scoring Stress Summed Score: 0 Percent Normal: 0.00% The left ventricular perfusion is normal. Procedure Note Ilya Patel MD - 02/22/2018 Normal study. There is no evidence of myocardial infarction or ischemia. Normal LV size and function with no regional wall motion abnormalities. Very low likelihood of hemodynamically significant coronary arterydisease. Low risk study for myocardial events or cardiac in the next twoyears. us Jose Longo MD CV NM CARDIAC Final Res ult documented in this encounter Visit Diagnoses Diagnosis Dyspnea on exertion- Primary Other dyspnea and respiratory abnormality Essential hypertension Unspecified essential hypertension Essential hypertension Unspecified essential hypertension Dyspnea on exertion Other dyspnea and respiratory abnormality documented in this encounter Care Teams Wood Caulker Relationship Specialty Start Date End Date Mert Dumont MD [facility] [place] [address] [email or web address] PCP - General Family Medicine 05/15/17 Benny Fairchild MD [address] [place] [address] Historical LMR Provider 12/27/16 2 Ambreen Little MD [facility] [place] [address] Historical LMR Provider 12/27/16 2 documented as of this encounter Additional Source Comments The information contained in this document represents components of the legal health record. It is not the complete legal health record.[facility]
== END 2024-11-05 14:33 | disposition home or self-care (01) ==
LOC: HO.HOS 13:09
PROVIDERS: PCP Family Medicine; Visit Provider Physician Assistant
DX: S93.402A Sprain of unspecified ligament of left ankle, initial encounter (principal)
CPT/HCPCS: 99213; G2211

== ENCOUNTER → 2024-11-05 13:09 | Outpatient (BNVA) | payer MEDICARE, SELFPAY | PROVIDERS: PCP Family Medicine; Visit Provider Physician Assistant | DX: S93.402D Sprain of unspecified ligament of left ankle, subsequent encounter (principal) | CPT/HCPCS: 99212 ==

== ENCOUNTER 2024-11-13 09:38 | Outpatient (REF) | payer MEDICARE, SELFPAY ==
--- OUTSIDE RECORDS SUMMARY | 2020-05-30 09:50 | XMS_ITS | Encounter Summary ---
Author Organization [facility] Address [address] [employer] [facility] [address] [place] [address] Phone Care Team Providers Care Division Human Resources Manager Name Role Phone Benny Fairchild MD Unavailable [phone] Ambreen Little MD Unavailable Mert Dumont MD Primary Care Prov ider Encounter Details Date Type Department Care Team (Late st Contact Info) Description 05/30/2020 9:50 AM EDT Hospital Encounter [facility] [address] [place] [address] [phone] Josie Otero, PLATEMAN [address] [place] [address] [email or web address] Social History Tobacco Use Types Packs/Day Years Used Date Smoking Tobacco: Former Cigarettes 1 40 1 958 - 1998 Smokeless Tobacco: Never Alcohol Use [...] 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 Josie Pendletonuld PLATEMAN IMG XR LOWER EXTREMITY Final Result documented in this encounter Visit Diagnoses Not on filedocumented in this encounter Care Teams Division Human Resources Manager Relationship Specialty Start Date End Date Mert Dumont MD [address] [place] [address] PCP - General Family Medicine 05/15/17 Benny Fairchild MD [address] [place] [address] Historical LMR Provider 12/27/16 2 Ambreen Little MD [facility]3 [place] [address] Historical LMR Provider 12/27/16 2 documented as of this encounter Additional Source Comments The information contained in this document represents components of the legal health record. It is not the complete legal health record.[facility]
--- OUTSIDE RECORDS SUMMARY | 2020-05-30 09:55 | XMS_ITS | Encounter Summary ---
Author Organization [facility] Address [address] [employer] [facility] [address] [place] [address] Phone Care Team Providers Care Finance Business Partner Name Role Phone Benny Fairchild MD Unavailable [phone] Ambreen Little MD Unavailable Mert Dumont MD Primary Care Prov ider Encounter Details Date Type Department Care Team (Late st Contact Info) Description 05/30/2020 9:55 AM EDT Hospital Encounter [facility] [address] [place] [address] [phone] Josie Otero, COURT MONITOR [address] [place] [address] [email or web address] Social History Tobacco Use Types Packs/Day Years [...] 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 The tarsometatarsal joints appear intact. Mild diffuse osteopenia. Small plantar and posterior calcaneal spurs. Soft tissue swelling, particularly along dorsal aspect of the foot. Narrative 05/30/2020 10:13 AM EDT TECHNIQUE: XR FOOT 3 OR MORE VIEWS (RIGHT) COMPARISON: None Procedure Note Ovi Bennett MD - 05/30/2020 TECHNIQUE: XR FOOT 3 OR MORE VIEWS (RIGHT) COMPARISON: None IMPRESSION: There is no displaced fracture or dislocation. The tarsometatarsal jointsappear intact. Mild diffuse osteopenia. Small plantar and posteriorcalcaneal spurs. Soft tissue swelling, particularly along dorsal aspect ofthe foot. Josie Otero COURT MONITOR IMG XR LOWER EXTREMITY Final Result documented in this encounter Visit Diagnoses Not on filedocumented in this encounter Care Teams Finance Business Partner Relationship Specialty Start Date End Date Mert Dumont MD [address] [place] [address] [email or web address] PCP - General Family Medicine 05/15/17 Benny Fairchild MD [address] [place] [address] Historical LMR Provider 12/27/16 2 Ambreen Little MD [address] [place] [address] Historical LMR Provider 12/27/16 2 documented as of this encounter Additional Source Comments The information contained in this document represents components of the legal health record. It is not the complete legal health record.[facility]
--- NOTE | ~2024-11-13 | XR_ITS ---
EXAMINATION: XR HIP, LEFT CLINICAL INFORMATION: M25.552 - Pain in left hip COMPARISON: October 07, 2024. TECHNIQUE: AP view pelvis. AP and oblique views of the left hip. FINDINGS: Sclerosis along the articular surface of the acetabulum and femoral head with asymmetric joint space narrowing and subchondral cyst formation. There is minimal volume loss of the left femoral head. No acute cortical disruption or gross malalignment. No lytic or blastic lesions. The bony pelvis is grossly intact. Degenerative changes in the sacroiliac joints and symphysis joints. Metallic right hip prosthesis not fully included in the [id number]. XR/XR hip LT min 2V IMPRESSION: Moderate osteoarthrosis/osteoarthritis, left hip. No gross change. Electronically signed by: Lon Maloney MD 11/13/2024 11:33 AM EDT
--- OUTSIDE RECORDS SUMMARY | 2024-11-13 10:27 | XMS_ITS | Encounter Summary ---
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 It is not the complete legal health record.[facility]
--- OUTSIDE RECORDS SUMMARY | 2024-11-13 10:27 | XMS_ITS | Encounter Summary ---
Author Organization [facility] Address [address] [place] [address] Phone Care Team Providers Care Long Chain Dyeing Machine Operator Name Role Phone Mert Dumont MD Primary Care Prov ider Encounter Details Date Type Department Care Team (Late st Contact Info) Description 05/23/2021 Procedure Pass Non-Invasive Cardiology [address] [place] [address] Social History Tobacco Use Types Packs/Day Years [...] on filedocumented in this encounter Care Teams Long Chain Dyeing Machine Operator Relationship Specialty Start Date End Date Mert Dumont MD PCP - General Family Medicine 05/15/17 documented as of this encounter Additional Source Comments The information contained in this document represents components of the legal health record. It is not the complete legal health record.[facility]
--- OUTSIDE RECORDS SUMMARY | 2024-11-13 10:27 | XMS_ITS | Encounter Summary ---
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 Not on file Not on savannah e documented as of this encounter Plan of Treatment Not on file documented as of this encounter Visit Diagnoses Not on filedocumented in this encounter Care Teams House Worker Relationship Specialty Start Date End Date Mert Dumont MD [address] [place], [place] [id number] [email or web address] PCP - General Family Medicine 05/15/17 Benny Fairchild MD [address] [place] [address] Historical LMR Provider 12/27/16 2 Ambreen Gonzalez MD [address] [place] [address] Historical LMR Provider 12/27/16 2 documented as of this encounter Additional Source Comments The information contained in this document represents components of the legal health record. It is not the complete legal health record.[facility]
--- OUTSIDE RECORDS SUMMARY | 2024-11-13 10:27 | XMS_ITS | Encounter Summary ---
Author Organization [facility] Address [address] [place] [address] [place] [address] Phone Care Team Providers Care Blue Print Control Clerk Name Role Phone Benny Fairchild MD Unavailable [phone] Ambreen Little MD Unavailable Mert Dumont MD Primary Care Prov ider Encounter Details Date Type Department Care Team (Late st Contact Info) Description 10/29/2018 Ancillary Orders Non-Invasive Cardiology [address] [place] [address] Jose Longo MD [address] 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 No device related complaints. Indication for device: SSS. Examination: Device type: Pacemaker Fiberglass Machine Operator: [employer]tronic Mode: AAIR-DDDR LRL/UPL: 60/130 bpm Mode [...] dysfunction documented in this encounter Care Teams Blue Print Control Clerk Relationship Specialty Start Date End Date Mert Dumont MD [address] [place] [address] PCP - General Family Medicine 05/15/17 Benny Fairchild MD [address] [place] [address] Historical LMR Provider 12/27/16 2 Ambreen Little MD [address] [place] [address] Historical LMR Provider 12/27/16 2 documented as of this encounter Additional Source Comments The information contained in this document represents components of the legal health record. It is not the complete legal health record.[facility]
--- OUTSIDE RECORDS SUMMARY | 2024-11-13 10:27 | XMS_ITS | Encounter Summary ---
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 It is not the complete legal health record.[facility]
--- OUTSIDE RECORDS SUMMARY | 2024-11-13 10:27 | XMS_ITS | Encounter Summary ---
Author Organization [facility] Address [address] [place] [address] Phone Care Team Providers Care Crimping Press Operator Name Role Phone Benny Fairchild MD Unavailable [phone] Ambreen Little MD Unavailable Mert Dumont MD Primary Care Prov ider Reason for Referral * MRI/CAT Scan - Closed Specialty Diagnoses / Procedures Referred By Julio C guy Referred To Contact Radiology Diagnoses Solitary pulmonary nodule Procedures CT Chest Mert Dumont MD Phone: tel: fax: [email or web address] Referral ID Status Reason Start Date Expiration Date Visits Re quested Visits Authorized [id number] Closed 09/30/2018 09/30/2019 1 1 Encounter Details Date Type Department Care Team (Late st Contact Info) Description 09/30/2018 Transcribe Orders Virtual Department [address] [place] [address] Mert Dumont MD [address] [place] [address] [phone] [email or web address] Solitary pulmonary nodule (Primary Dx) Social History [...] 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 It is not the complete legal health record.[facility]
--- OUTSIDE RECORDS SUMMARY | 2024-11-13 10:27 | XMS_ITS | Encounter Summary ---
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 It is not the complete legal health record.[facility]
--- OUTSIDE RECORDS SUMMARY | 2024-11-13 10:27 | XMS_ITS | Encounter Summary ---
Author Organization [facility] Address [address] [place] [address] Phone Care Team Providers Care Safety Advisor Name Role Phone Benny Fairchild MD Unavailable [phone] Ambreen Little MD Unavailable Mert Dumont MD Primary Care Prov ider Reason for Referral * Physical Therapy (Routine) - Closed Specialty Diagnoses / Procedures Referred By Conttea t Referred To Contact Physical Therapy Diagnoses Dizziness and giddiness Mert Dumont MD Phone: tel: fax: mailto:[email or web address] [address] [address] Phone: tel: Referral ID Status Reason Start Date Expiration Date Visits Re quested Visits Authorized [id number] Closed 05/15/2017 03/11/2018 99 [phone] Encounter Details Date Type Department Care Team (Late st Contact Info) Description 05/15/2017 Transcribe Orders [facility] [address] [place] [address] Mert Dumont MD [address] [place] [address] [phone] [email or web address] Dizziness and giddiness (Primary Dx) [...] Associated Diagnoses Order Schedule Ambulatory referral to [facility] Physical Therapy Outpatient Referral Routine Dizziness and giddiness Ordered: 05/15/2017 documented as of this encounter Visit Diagnoses Diagnosis Dizziness and giddiness- Primary documented in this encounter Care Teams Safety Advisor Relationship Specialty Start Date End Date Mert Dumont MD [facility] [place] [address] [email or web address] PCP - General Family Medicine 05/15/17 Benny Fairchild MD [address] [place] [address] Historical LMR Provider 12/27/16 2 Ambreen Little MD [address] [place] [address] Historical LMR Provider 12/27/16 2 documented as of this encounter Additional Source Comments The information contained in this document represents components of the legal health record. It is not the complete legal health record.[facility]
--- OUTSIDE RECORDS SUMMARY | 2024-11-13 10:27 | XMS_ITS | Encounter Summary ---
Author Organization [facility] Address [address] [place] [address] [place] [address] Phone Care Team Providers Care Customs Officer Name Role Phone Benny Fairchild MD Unavailable [phone] Ambreen Little MD Unavailable Mert Dumont MD Primary Care Prov ider Encounter Details Date Type Department Care Team (Late st Contact Info) Description 10/29/2018 Ancillary Orders [facility] [address] [place] [address] Jose Longo MD [address] [place] [address] [place] [address] [email or web address] Social History Tobacco Use Types Packs/Day Years Used Date Smoking Tobacco: Former Cigarettes 1 40 1 958 - 2981 Smokeless Tobacco: Never Alcohol Use Standard Drinks/Week [...] 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 Not on file Not on savannah e documented as of this encounter Plan of Treatment Not on file documented as of this encounter Visit Diagnoses Not on filedocumented in this encounter Care Teams Customs Officer Relationship Specialty Start Date End Date Mert Dumont MD [facility] [place] [address] [email or web address] PCP - General Family Medicine 05/15/17 Benny Fairchild MD [address] [place] [address] Historical LMR Provider 12/27/16 2 Ambreen Little MD [facility] [place] [address] Historical LMR Provider 12/27/16 2 documented as of this encounter Additional Source Comments The information contained in this document represents components of the legal health record. It is not the complete legal health record.[facility]
--- OUTSIDE RECORDS SUMMARY | 2024-11-13 10:27 | XMS_ITS | Encounter Summary ---
Author Organization 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 Not on file Not on savannah e documented as of this encounter Plan of Treatment Not on file documented as of this encounter Visit Diagnoses Not on filedocumented in this encounter Care Teams Recycler Relationship Specialty Start Date End Date Mert Dumont MD [address] [place], [place] [phone] [email or web address] PCP - General Family Medicine 05/15/17 Benny Fairchild MD [address] [place] [address] Historical LMR Provider 12/27/16 2 Ambreen Gonzalez MD [address] [place] [address] Historical LMR Provider 12/27/16 2 documented as of this encounter Additional Source Comments The information contained in this document represents components of the legal health record. It is not the complete legal health record.[facility]
--- OUTSIDE RECORDS SUMMARY | 2024-11-13 10:28 | XMS_ITS | Encounter Summary ---
Author Organization [facility] Address [address] [place] [address] [place] [address] Phone Care Team Providers Care Enrollment Nurse Name Role Phone Benny Fairchild MD Unavailable [phone] Ambreen Little MD Unavailable Mert Dumont MD Primary Care Prov ider Encounter Details Date Type Department Care Team (Late st Contact Info) Description 06/29/2017 Procedure Pass [facility] [address] [place] [address] Social History Tobacco Use Types Packs/Day Years [...] on filedocumented in this encounter Care Teams Enrollment Nurse Relationship Specialty Start Date End Date Mert Dumont MD [address] [place] [address] [email or web address] PCP - General Family Medicine 05/15/17 Benny Fairchild MD [address] [place] [address] 248[address] Historical LMR Provider 12/27/16 2 Ambreen Gonzalez MD [address] [place] [address] Historical LMR Provider 12/27/16 2 documented as of this encounter Additional Source Comments The information contained in this document represents components of the legal health record. It is not the complete legal health record.[facility]
--- OUTSIDE RECORDS SUMMARY | 2024-11-13 10:28 | XMS_ITS | Encounter Summary ---
Author Organization [facility] Address [address] [facility] [address] [place] [address] Phone Care Team Providers Care Inspector Casing Name Role Phone Benny Fairchild MD Unavailable [phone] Ambreen Little MD Unavailable Mert Dumont MD Primary Care Prov ider Encounter Details Date Type Department Care Team (Late st Contact Info) Description 09/28/2017 Procedure Pass [facility], Ct Scan - [address] [id number] Social History Tobacco Use Types Packs/Day Years Used Date Smoking Tobacco: Former Cigarettes 1 40 1 478 - 7076 Smokeless Tobacco: Never Alcohol Use Standard Drinks/Week [...] 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 PCP - General Family Medicine 05/15/17 Benny Fairchild MD [address] [place] [address] Historical LMR Provider 12/27/16 2 Ambreen Little MD [address] [place] [address] 24[address] Historical LMR Provider 12/27/16 2 documented as of this encounter Additional Source Comments The information contained in this document represents components of the legal health record. It is not the complete legal health record.[facility]
--- OUTSIDE RECORDS SUMMARY | 2024-11-13 10:28 | XMS_ITS | Encounter Summary ---
Author Organization [facility] Address [address] [employer] [facility] [address] [place] [address] Phone Care Team Providers Care Applier Name Role Phone Benny Fairchild MD Unavailable [phone] Ambreen Little MD Unavailable Mert Dumont MD Primary Care Prov ider Encounter Details Date Type Department Care Team (Late st Contact Info) Description 02/25/2020 Procedure Pass Non-Invasive Cardiology [address] [place] [address] Social History Tobacco Use Types [...] on filedocumented in this encounter Care Teams Applier Relationship Specialty Start Date End Date Mert Dumont MD [address] [place] [address] [email or web address] PCP - General Family Medicine 05/15/17 Benny Fairchild MD [address] [place] [address] Historical LMR Provider 12/27/16 2 Ambreen Little MD [address] [place] [address] Historical LMR Provider 12/27/16 2 documented as of this encounter Additional Source Comments The information contained in this document represents components of the legal health record. It is not the complete legal health record.[facility]
--- OUTSIDE RECORDS SUMMARY | 2024-11-13 10:28 | XMS_ITS | Encounter Summary ---
Author Organization [facility] Address [address] [place] [address] [place] [address] Phone Care Team Providers Care Monotype Setter Name Role Phone Benny Fairchild MD Unavailable [phone] Ambreen Little MD Unavailable Mert Dumont MD Primary Care Prov ider Encounter Details Date Type Department Care Team (Late st Contact Info) Description 07/04/2017 Ancillary Orders [facility] [address] [place] [address] Jose Longo MD [address] [place] [address] [place] [address] Social History Tobacco Use Types Packs/Day Years Used Date Smoking Tobacco: Former Cigarettes 1 40 1 958 - 9124 Smokeless Tobacco: Never Alcohol Use Standard Drinks/Week [...] 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 PCP - General Family Medicine 05/15/17 Benny Fairchild MD [address] [place] [address] Historical LMR Provider 12/27/16 2 Ambreen Little MD [facility] [place] [address] Historical LMR Provider 12/27/16 2 documented as of this encounter Additional Source Comments The information contained in this document represents components of the legal health record. It is not the complete legal health record.[facility]
--- OUTSIDE RECORDS SUMMARY | 2024-11-13 10:28 | XMS_ITS | Encounter Summary ---
Author Organization [facility] Address [facility] [employer] [address] [address] Phone Care Team Providers Care Machinist Supervisor Name Role Phone Benny Fairchild MD Unavailable [phone] Ambreen Little MD Unavailable Mert Dumont MD Primary Care Prov ider Reason for Referral * Physical Therapy (Routine) - Closed Specialty Diagnoses / Procedures Referred By Conttea t Referred To Contact Physical Therapy Diagnoses Encounter for rehabilitation System, Provider Not In, PhD [address] [address] Phone: tel: Referral ID Status Reason Start Date Expiration Date Visits Re quested Visits Authorized [id number] Closed 08/23/2017 03/11/2018 99 99 Encounter Details Date Type Department Care Team (Late st Contact Info) Description 08/23/2017 Transcribe Orders [facility] [address] [place] [address] Mert Dumont MD [address] [place] [address] [phone] [email or web address] Encounter for rehabilitation (Primary Dx) Social History [...] 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 Not on file Not on savannah e documented as of this encounter Plan of Treatment Not on file documented as of this encounter Procedures Procedure Name Priority Date/Time Associated Diagnosis Comments AMB REFERRAL TO [facility] PHYSICAL THERAPY Routine 10/03/2017 11:56 AM EDT Encounter for rehabilitation documented in this encounter Results * Ambulatory referral to [facility] Physical Therapy (10/03/2017 11:56 AM EDT) us Provider Not In System PhD AMB [facility] REFERRALS Fin al Result documented in this encounter Visit Diagnoses Diagnosis Encounter for rehabilitation- Primary documented in this encounter Care Teams Machinist Supervisor Relationship Specialty Start Date End Date Mert Dumont MD [address] [place] [address] PCP - General Family Medicine 05/15/17 Benny Fairchild MD [address] [place] [address] Historical LMR Provider 12/27/16 2 Ambreen Little MD [facility] [place] [address] Historical LMR Provider 12/27/16 2 documented as of this encounter Additional Source Comments The information contained in this document represents components of the legal health record. It is not the complete legal health record.[facility]
--- OUTSIDE RECORDS SUMMARY | 2024-11-13 10:28 | XMS_ITS | Encounter Summary ---
Author Organization [facility] Address [address] [employer] [facility] [address] [place] [address] Phone Care Team Providers Care Tugboat Dispatcher Name Role Phone Benny Fairchild MD Unavailable [phone] Ambreen Little MD Unavailable Mert Dumont MD Primary Care Prov ider Encounter Details Date Type Department Care Team (Late st Contact Info) Description 02/28/2021 Procedure Pass Non-Invasive Cardiology [address] [place] [address] Social History Tobacco Use Types [...] on filedocumented in this encounter Care Teams Tugboat Dispatcher Relationship Specialty Start Date End Date Mert Dumont MD [address] [place], [place] [phone] [email or web address] PCP - General Family Medicine 05/15/17 Benny Fairchild MD [address] [place] [address] Historical LMR Provider 12/27/16 2 Ambreen Gonzalez MD [address] [place] [address] Historical LMR Provider 12/27/16 2 documented as of this encounter Additional Source Comments The information contained in this document represents components of the legal health record. It is not the complete legal health record.[facility]
--- OUTSIDE RECORDS SUMMARY | 2024-11-13 10:28 | XMS_ITS | Encounter Summary ---
Author Organization [facility] Address [address] [employer] [facility] [address] [place] [address] Phone Care Team Providers Care Overcaster Name Role Phone Benny Fairchild MD Unavailable [phone] Ambreen Little MD Unavailable Mert Dumont MD Primary Care Prov ider Encounter Details Date Type Department Care Team (Late st Contact Info) Description 06/28/2017 Procedure Pass [facility], Ct Scan - [address] [phone] Social History Tobacco Use Types Packs/Day Years Used Date Smoking Tobacco: Former Cigarettes 1 40 1 838 - 2375 Smokeless Tobacco: Never Alcohol Use Standard Drinks/Week [...] 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 Not on file Not on savannah e documented as of this encounter Plan of Treatment Not on file documented as of this encounter Visit Diagnoses Not on filedocumented in this encounter Care Teams Overcaster Relationship Specialty Start Date End Date Mert Dumont MD [address] [place], [place] [phone] [email or web address] PCP - General Family Medicine 05/15/17 Benny Fairchild MD [address] [place] [address] Historical LMR Provider 12/27/16 2 Ambreen Little MD [address] [place] [address] Historical LMR Provider 12/27/16 2 documented as of this encounter Additional Source Comments The information contained in this document represents components of the legal health record. It is not the complete legal health record.[facility]
--- OUTSIDE RECORDS SUMMARY | 2024-11-13 10:28 | XMS_ITS | Encounter Summary ---
Author Organization [facility] Address [address] [place] [address] [place] [address] Phone Care Team Providers Care Division Operations Manager Name Role Phone Benny Fairchild MD Unavailable [phone] Ambreen Little MD Unavailable Mert Dumont MD Primary Care Prov ider Encounter Details Date Type Department Care Team (Late st Contact Info) Description 07/04/2017 Ancillary Orders Non-Invasive Cardiology [address] [place] [address] Jose Longo MD [address] [facility] [place] [address] [email or web address] Social History Tobacco Use Types Packs/Day Years Used Date Smoking Tobacco: Former Cigarettes 1 40 1 958 - 3090 Smokeless Tobacco: Never Alcohol Use Standard Drinks/Week [...] * DEVICE CHECK: PPM REMOTE INTERROGATION WITH PERSONNEL ASSISTANT REVIEW (05/06/2018 1:45 PM EST) Narrative Jose Longo MD - 05/08/2018 4:26 PM EST Reason for appointment: Remote pacemaker interrogation HPI: Routine 3 month remote pacemaker interrogation. No device related complaints. Indication for device: SSS. Examination: Device type: Pacemaker Emergency Department Manager: [employer] Mode: AAIR-DDDR LRL/UPL: 60/130 bpm Mode [...] dysfunction documented in this encounter Care Teams Division Operations Manager Relationship Specialty Start Date End Date Mert Dumont MD [address] [place] [address] PCP - General Family Medicine 05/15/17 Benny Fairchild MD [address] [place] [address] Historical LMR Provider 12/27/16 2 Ambreen Little MD [address] [place] [address] Historical LMR Provider 12/27/16 2 documented as of this encounter Additional Source Comments The information contained in this document represents components of the legal health record. It is not the complete legal health record.[facility]
--- OUTSIDE RECORDS SUMMARY | 2024-11-13 10:28 | XMS_ITS | Encounter Summary ---
Author Organization [facility] Address [address] [place] [address] Phone Care Team Providers Care Periodicals Library Assistant Name Role Phone Benny Fairchild MD Unavailable Ambreen Little MD Unavailable Mert Dumont MD Primary Care Prov ider Reason for Referral * MRI/CAT Scan - Closed Specialty Diagnoses / Procedures Referred By Contac t Referred To Contact Radiology Diagnoses Vertigo Dizziness and giddiness Procedures MRI Brain Mert Dumont MD Phone: tel: fax: [email or web address] Referral ID Status Reason Start Date Expiration Date Visits Re quested Visits Authorized [id number] Closed 06/15/2017 06/15/2018 1 1 Encounter Details Date Type Department Care Team (Late st Contact Info) Description 06/15/2017 Ancillary Orders Virtual Department [address] [place] [address] Mert Dumont MD [address] [place] [address] [phone] [email or web address] Vertigo; Dizziness and giddiness Social History Tobacco [...] in the right parietal lobe. POS - [id number] Narrative 06/26/2017 11:10 AM EDT HISTORY: Dizziness. [...] anomalyin the right parietal lobe. POS - [id number] Mert Miller MD IMG MR HEAD/NECK F inal Result documented in this encounter Visit Diagnoses Diagnosis Vertigo Dizziness and giddiness Dizziness and giddiness Vertigo Dizziness and giddiness Dizziness and giddiness documented in this encounter Care Teams Periodicals Library Assistant Relationship Specialty Start Date End Date Mert Dumont MD [address] [place] [address] PCP - General Family Medicine 05/15/17 Benny Fairchild MD [address] [place] [address] Historical LMR Provider 12/27/16 2 Ambreen Little MD [address] [place] [address] Historical LMR Provider 12/27/16 2 documented as of this encounter Additional Source Comments The information contained in this document represents components of the legal health record. It is not the complete legal health record.[facility]
--- OUTSIDE RECORDS SUMMARY | 2024-11-13 10:28 | XMS_ITS | Encounter Summary ---
Author Organization [facility] Address [address] [place] [address] [place] [address] Phone Care Team Providers Care Wildlife Photographer Name Role Phone Benny Fairchild MD Unavailable [phone] Ambreen Little MD Unavailable Mert Dumont MD Primary Care Prov ider Encounter Details Date Type Department Care Team (Late st Contact Info) Description 03/24/2019 Ancillary Orders Non-Invasive Cardiology [address] [place] [address] Jose Longo MD [address] [place] [address] [email or web address] SSS (sick sinus syndrome) Social History Tobacco [...] 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 No device related complaints. Indication for device: SSS. Examination: Device type: Pacemaker Logistics Manager: [employer] Mode: AAIR-DDDR LRL/UPL: 60/130 bpm [...] dysfunction documented in this encounter Care Teams Wildlife Photographer Relationship Specialty Start Date End Date Mert Dumont MD [address] [place] [address] PCP - General Family Medicine 05/15/17 Benny Fairchild MD [address] [place] [address] Historical LMR Provider 12/27/16 2 Ambreen Little MD [address] [place] [address] Historical LMR Provider 12/27/16 2 documented as of this encounter Additional Source Comments The information contained in this document represents components of the legal health record. It is not the complete legal health record.[facility]
--- OUTSIDE RECORDS SUMMARY | 2024-11-13 10:28 | XMS_ITS | Encounter Summary ---
Author Organization [facility] Address [address] [employer] [facility] [address] [place] [address] Phone Care Team Providers Care Global Vp Creative + Content Marketing Name Role Phone Benny Fairchild MD Unavailable [phone] Ambreen Little MD Unavailable Mert Dumont MD Primary Care Prov ider Reason for Referral * Physical Therapy (Routine) - Closed Specialty Diagnoses / Procedures Referred By Contac t Referred To Contact Physical Therapy Diagnoses Encounter for rehabilitation System, Provider Not In, PhD [address] [address] Phone: tel: Referral ID Status Reason Start Date Expiration Date Visits Re quested Visits Authorized [id number] Closed 07/23/2017 07/23/2018 1 1 Encounter Details Date Type Department Care Team (Late st Contact Info) Description 07/23/2017 Transcribe Orders [facility] [address] [place] [address] [phone] Lacey Espinal NP [address] [place] [address] [phone] Encounter for rehabilitation (Primary Dx) Social History [...] Diagnoses Orde r Schedule Ambulatory referral to [facility] Physical Therapy Outpatient Referral Routine Encounter for rehabilitation Ordered: 07/23/2017 documented as of this encounter Visit Diagnoses Diagnosis Encounter for rehabilitation- Primary documented in this encounter Care Teams Global Vp Creative + Content Marketing Relationship Specialty Start Date End Date Mert Dumont MD [address] [place] [address] PCP - General Family Medicine 05/15/17 Benny Fairchild MD [address] [place] [address] Historical LMR Provider 12/27/16 2 Ambreen Little MD [facility] [place] [address] Historical LMR Provider 12/27/16 2 documented as of this encounter Additional Source Comments The information contained in this document represents components of the legal health record. It is not the complete legal health record.[facility]
--- OUTSIDE RECORDS SUMMARY | 2024-11-13 10:28 | XMS_ITS | Clinical Summary ---
Author Organization [facility] Address [address] [address] Phone Care Team Providers Care Paint Maker Name Role Phone Mert Dumont MD Primary [...] of chronic back pain, previously treated at [facility] with excellent results I will obtain UTD xrays of lumbar spine Consider referral to PT and /or PSSP again Preop examination 12/16/2020 Assessment & Plan (12/16/2020 2:51 PM EDT): Patient seen in the office today prior to upcoming right total hip replacement on 01/11/[address] [place] [address] Lee. She is denying any symptoms concerning for angina, heart failure or arrhythmias at this time. According to the revised cardiac risk index for preoperative risk, patient has a 6.0% chance of , [place] or cardiac arrest within 30 days of [...] injection activity was discussed with the patient. [facility] # 6111-5462-95 [facility] # [id number] Lot # [id number] Exp. 04/02 Continue Cymbalta [...] injection activity was discussed with the patient. [facility] # [id number] Lot # [id number] Exp. 04/02 Trochanteric bursitis [...] you interested in more education? Not on saavnnah e 07/07/2022 Are you concerned about learning? 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 Not on file Not [...] Additional history exists BLOOD PRESSURE 07/31/2022 01/31/2022 INFLUENZA VACCINE (#1) 2024 , 11/28/2020, 11/28/2020, Additional history exists COVID-19 VACCINE ( season) 2024 07/02/2021, 07/02/2021, 01/20/2021, Additional history exists Adult [...] this topic Medical Devices Implanted Type Area Electrician Helper Powerhouse Device Identifier Shelf Expiration Date Model / Serial / Lot Lead Pacemaker Capsure Fix Novus Is-1 Bi Atr/Vntr Betty 52 Cm - [id number] Implanted:Qty : 1 on 06/29/2017 by Jose Longo MD at [facility] Lead [employer] [id number] 03/01/2019 5076-45 / [id number] / Lead Pacemaker Capsure Fix Novus Is-1 Bi Atr/Vntr Betty 45 Cm - [id number] Implanted:Qty : 1 on 06/29/2017 by Jose Longo MD at [facility] Lead Heart [employer] 03/01/2019 5076-45 / / Device Pacemaker [place] Xt [address] Erum - [id number] Implanted:Qty : 1 on 06/29/2017 by Jose Longo MD at [facility] Pacemaker [employer] [id number] 11/06/2018 [id number] / [id number] / Procedures Procedure Name Priority Date/Time Associated [...] EDT) SODIUM 135 133 - 146 mmol/L [facility] POTASSIUM 4.5 3.3 - 5.1 mmol/L [facility] CHLORIDE 97 96 - 108 mmol/L [facility] CO2 29 21 - 35 mmol/L [facility] BUN 10 6 - 19 mg/dL [facility] CREATININE 0.70 0.5 - 1.5 mg/dL [facility] GLUCOSE 101(H) 70 - 99 mg/dL [facility] ALBUMIN 3.7(L) 3.9 - 4.8 g/dL [facility] TOTAL PROTEIN 6.6 6.5 - 8.0 g/dL [facility] CALCIUM 8.8 8.4 - 10.3 mg/dL [facility] ALKALINE PHOSPHATASE 108 39 - 117 U/L [facility] TOTAL BILIRUBIN 0.4 0.0 - 1.2 mg/dL [facility] AST 33 0 - 37 U/L [facility] ALT 16 0 - 40 U/L [facility] GLOBULIN 2.9 1 - 4.8 g/dL [facility] EGFR 83 >59 mL/min/1.7 3m2 [facility] Comment:Estimated glomerular filtration rate calculated using the CKD-EPI equation. ANION GAP 14 10 - 20 mmol/L [facility] Blood 06/15/2020 2:08 PM EDT 06/15/2020 2:12 PM EDT Demetri VALDEZ LAB BLOOD ORDERABLES Fi nal Result [address] [address] * TSH with reflex (06/29/2017 5:19 AM EDT) TSH 2.36 0.27 - 4.20 uIU/mL [facility] Blood 06/29/2017 5:19 AM EDT 06/29/2017 6:33 AM EDT Vesna Vera PA-C LAB BLOOD ORDERABLES Final Result [address] [address] from Last 3 Months or Most Recently Relevant to Health Maintenance Insurance MEDICARE PART A & B [employer] MEDEX SUPPLEMENT MEDICARE PART A & B [employer] MEDEX SUPPLEMENT MEDICARE PART A & B [facility] MEDEX SUPPLEMENT MEDICARE PART A & B Member Subscriber Plan / Payer ( fective 2006-Present) Name:Yina Rutledge Member ID:[id number] Relation to Subscriber:Self Name:Yina Rutledge Subscriber ID:[id number] Payer ID:[id number] Group ID:Not on file Type:Medicare Address: [employer] [address] [place] [id number] [employer] MEDEX SUPPLEMENT MEDICARE PART A & B [employer] MED[employer] SUPPLEMENT MEDICARE PART A & B [employer] MEDEX SUPPLEMENT MEDICARE PART A & B [employer] MEDEX SUPPLEMENT MEDICARE PART A & B [employer] MEDEX SUPPLEMENT MEDICARE PART A & B [employer] MEDEX SUPPLEMENT Advance Directives For more information, please contact: [phone] (9AM - 5PM [facility], Sunday-Sunday) Documents on File Type Date Recorded Patient Plate Worker Helper Expl anation Healthcare Proxy 07/06/2017 3:24 PM * Full Code (Confirmed) (Latest Code Status on File) Date Activated Date Inactivated Comments 06/28/2017 3:34 PM 06/30/2017 2:37 PM Care Teams Paint Maker Relationship Specialty Start Date End Date Mert Dumont MD [email or web address] PCP - General Family Medicine 05/15/17 Additional Source Comments The information contained in this document represents components of the legal health record. It is not the complete legal health record.[facility]
--- OUTSIDE RECORDS SUMMARY | 2024-11-13 10:28 | XMS_ITS | Encounter Summary ---
Author Organization [facility] Address [address] [facility] [address] [place] [address] Phone Care Team Providers Care Corporate Travel Counselor Name Role Phone Benny Fairchild MD Unavailable [phone] Ambreen Little MD Unavailable Mert Dumont MD Primary Care Prov ider Reason for Referral * MRI/CAT Scan - Closed Specialty Diagnoses / Procedures Referred By Contac t Referred To Contact Radiology Diagnoses Essential hypertension Dyspnea on exertion Procedures NC Myocardial Perfusion Stress Single NC Myocardial Perfusion Pharmacologic Stress Multiple Jose Longo MD Phone: tel: fax: mailto:[email or web address] Referral ID Status Reason Start Date Expiration Date Visits Re quested Visits Authorized [id number] Closed 01/16/2018 01/16/2019 1 1 Encounter Details Date Type Department Care Team (Latest Contact Info) Description 02/19/2018 Ancillary Orders [facility] [address], [address] [place] [address] Jose Longo MD [address] [place] [address] [email or web address] Essential hypertension; Dyspnea on exertion [...] 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 Not on file [...] abnormality documented in this encounter Care Teams Corporate Travel Counselor Relationship Specialty Start Date End Date Mert Dumont MD [facility] [place] [address] [email or web address] PCP - General Family Medicine 05/15/17 Benny Fairchild MD [address] [place] [address] Historical LMR Provider 12/27/16 2 Ambreen Little MD [facility] [place] [address] Historical LMR Provider 12/27/16 2 documented as of this encounter Additional Source Comments The information contained in this document represents components of the legal health record. It is not the complete legal health record.[facility]
--- OUTSIDE RECORDS SUMMARY | 2024-11-13 10:28 | XMS_ITS | Encounter Summary ---
Author Organization [facility] Address [address] [facility] [address] [place] [address] Phone Care Team Providers Care Vacation Sales Advisor Name Role Phone Benny Fairchild MD Unavailable [phone] Ambreen Little MD Unavailable Mert Dumont MD Primary Care Prov ider Encounter Details Date Type Department Care Team (Late st Contact Info) Description 01/24/2020 Procedure Pass Non-Invasive Cardiology [address] [place] [address] Social History Tobacco Use Types [...] on filedocumented in this encounter Care Teams Vacation Sales Advisor Relationship Specialty Start Date End Date Mert Dumont MD [address] [place] [address] [email or web address] PCP - General Family Medicine 05/15/17 Benny Fairchild MD [address] [place] [address] Historical LMR Provider 12/27/16 2 Ambreen Little MD [address] [place] [address] Historical LMR Provider 12/27/16 2 documented as of this encounter Additional Source Comments The information contained in this document represents components of the legal health record. It is not the complete legal health record.[facility]
--- OUTSIDE RECORDS SUMMARY | 2024-11-13 10:28 | XMS_ITS | Encounter Summary ---
Author Organization [facility] Address [address] [place] [address] [place] [address] Phone Care Team Providers Care Dry Mill Worker Name Role Phone Benny Fairchild MD Unavailable [phone] Ambreen Little MD Unavailable Mert Dumont MD Primary Care Prov ider Encounter Details Date Type Department Care Team (Late st Contact Info) Description 07/20/2017 Ancillary Orders [facility] [address] [place] [address] Jose Longo MD [address] [place] [address] [place] [address] [email or web address] Social History Tobacco Use Types Packs/Day Years Used Date Smoking Tobacco: Former Cigarettes 1 40 1 958 - 1016 Smokeless Tobacco: Never Alcohol Use Standard Drinks/Week [...] 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 Not on file Not on savannah e documented as of this encounter Plan of Treatment Not on file documented as of this encounter Visit Diagnoses Not on filedocumented in this encounter Care Teams Dry Mill Worker Relationship Specialty Start Date End Date Mert Dumont MD [facility] [place] [address] [email or web address] PCP - General Family Medicine 05/15/17 Benny Fairchild MD [address] [place] [address] Historical LMR Provider 12/27/16 2 Ambreen Little MD [facility] [place] [address] Historical LMR Provider 12/27/16 2 documented as of this encounter Additional Source Comments The information contained in this document represents components of the legal health record. It is not the complete legal health record.[facility]
--- OUTSIDE RECORDS SUMMARY | 2024-11-13 10:28 | XMS_ITS | Encounter Summary ---
Author Organization [facility] Address [address] [place] [address] [place] [address] Phone Care Team Providers Care Wire Coiner Name Role Phone Benny Fairchild MD Unavailable [phone] Ambreen Little MD Unavailable Mert Dumont MD Primary Care Prov ider Encounter Details Date Type Department Care Team (Late st Contact Info) Description 07/20/2017 Ancillary Orders Non-Invasive Cardiology [address] [place] [address] Jose Longo MD [address] [place] [address] [email or web address] SSS (sick sinus syndrome) Social [...] dysfunction documented in this encounter Care Teams Wire Coiner Relationship Specialty Start Date End Date Mert Dumont MD [address] [place] [address] [email or web address] PCP - General Family Medicine 05/15/17 Benny Fairchild MD [address] [place] [address] Historical LMR Provider 12/27/16 2 Ambreen Little MD [facility] [place] [address] Historical LMR Provider 12/27/16 2 documented as of this encounter Additional Source Comments The information contained in this document represents components of the legal health record. It is not the complete legal health record.[facility]
--- OUTSIDE RECORDS SUMMARY | 2024-11-13 10:28 | XMS_ITS | Encounter Summary ---
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 It is not the complete legal health record.[facility]
--- OUTSIDE RECORDS SUMMARY | 2024-11-13 10:28 | XMS_ITS | Encounter Summary ---
Author Organization [facility] Address [address] [place] [address] [place] [address] Phone Care Team Providers Care Church Administrator Name Role Phone Benny Fairchild MD Unavailable [phone] Ambreen Little MD Unavailable Mert Dumont MD Primary Care Prov ider Encounter Details Date Type Department Care Team (Late st Contact Info) Description 06/15/2017 Procedure Pass [facility], [address] [place] [address] Social History Tobacco Use Types Packs/Day Years [...] on filedocumented in this encounter Care Teams Church Administrator Relationship Specialty Start Date End Date Mert Dumont MD [address] [place] [address] PCP - General Family Medicine 05/15/17 Benny Fairchild MD [address] [place] [address] Historical LMR Provider 12/27/16 2 Ambreen Little MD [address] [place] [address] Historical LMR Provider 12/27/16 2 documented as of this encounter Additional Source Comments The information contained in this document represents components of the legal health record. It is not the complete legal health record.[facility]
== END 2024-11-13 09:39 | disposition home or self-care (01) ==
LOC: HO.HOSX 09:38
PROVIDERS: Visit Provider Physician Assistant
DX: Z01.818 Encounter for other preprocedural examination (principal); M16.12 Unilateral primary osteoarthritis, left hip; E11.9 Type 2 diabetes mellitus without complications; Z96.641 Presence of right artificial hip joint; Z79.01 Long term (current) use of anticoagulants; Z79.899 Other long term (current) drug therapy
CPT/HCPCS: 73502; 99212

== ENCOUNTER 2024-11-13 11:07 | Outpatient (AMB) | payer MEDICARE, SELFPAY ==
--- NOTE | 2024-11-12 22:37 | MHC.OFFVIS ---
Vital Signs 11/13/24 11:30 Height 5 ft 4 in Weight 225 lb BMI 38.6 Intake Visit Reasons: Pre-Op: L THERON w/NE 11/18/24 Intake Note: Yina is an 84 year old female who presents today for a pre-operative visit to discuss her scheduled left THERON scheduled with Dr Casa Lee on 11/18/24. Pain Management form have been completed and signed today. Allergies Seasonal Allergies Allergy (Mild, Verified 11/13/24 11:30) itching and sneezing Medication List - Last Reconciled 11/13/24 by Ariana Allen PA-C acetaminophen ER 1,300 mg PO Q8-10H PRN albuterol sulfate 90 mcg/actuation 1 inh inhalation Q6-8H PRN amiodarone 200 mg PO DAILY apixaban (Eliquis) 5 mg PO BID cholecalciferol (vitamin D3) (Vitamin D3) 125 mcg PO DAILY empagliflozin (Jardiance) 10 mg PO DAILY [Folding Front Wheeled walker Duration: 99 days] gabapentin 300 mg PO BID metoprolol succinate ER 50 mg PO BEDTIME torsemide 10 mg See Protocol PO DAILY vit C,L-Jc-wxxlo-lutein-zeaxan 250-90-40-1 mg (PreserVision AREDS-2) 1 tab PO BID HPI Comments Details: Ms Monroy presents to the office today for Orthopedic Pre op clearance. She is scheduled for a Left total hip arthroplasty on 11/19/[address] Lee. She has been experiecing left hip pain for serveral year and states the pain radiates into the groin and affects her ability to ambulate safely. She has a PMH significant for CHF /afib. She takes amiodarone and Eliquis and recently underwent a cardioversion on 07/21/24 for a history of atrial fibrillation. She also has h/o sick sinus syndrome s/p pacemaker and a diagnosis of heart failure with preserved ejection fraction. In addition she was admitted to the hospital for a CHF exacerbation 04/2024. She also fell 2 years ago and sustained an injury to her lower left leg. She did not initially seek medical attention and this progressed to a nonhealing wound that required debridement and wound care. This has since resolved but it has left a area of diminished vascularity over the anterior distal cedillo and has not helped her edema. afib active, cardioversion unsuccessful-pending ablation , continued SOB Her primary care physician did clear her as an intermediate risk for surgery. [facility] Medical History (Updated 10/20/24 @ 13:45 by Ariana Allen PA-C) Spinal stenosis SOB (shortness of breath) Atrial fibrillation Foot fracture, left (~10/07/24) Acute on chronic diastolic (congestive) heart failure History of cardioversion Arthritis Persistent atrial fibrillation Sick sinus syndrome Cardiac pacemaker in situ (HFpEF) heart failure with preserved ejection fraction Hypertension TIA (transient ischemic attack) Wears dentures Wears hearing aid in both ears Hx of cardiac pacemaker Degenerative joint disease Peripheral venous insufficiency Transient cerebral ischemia Hearing loss Retinal artery occlusion Obstructive sleep apnea Obesity (BMI 30-39.9) Surgical History H/O heart surgery History of right hip replacement Hx of tubal ligation Hx laparoscopic cholecystectomy History of esophagogastroduodenoscopy (EGD) Hx of colonoscopy Status post ORIF of fracture of ankle (~1984) History of cataract surgery (~2016) Social History Household Members: Spouse Housing: House Are you a primary adult care provider to a significant other at home: No Do you presently have visiting nurse or other home services: No Alcohol intake: never Patient Tobacco Use Status: Former Tobacco user Tobacco use type: Cigarette Years Smoked: 20 Advance Directives Date on File: 09/20/17 service: No Current occupational status: retired Current occupation: right handed Physical Exam Vital Signs: BMI result Body Mass Index 38.6 Assessment & Plan Assessment & Plan (1) Primary osteoarthritis of left hip: Code(s): M16.12 - Unilateral primary osteoarthritis, left hip Category: Medical Plan: Dr Lee was avaiable to see the patient with me today. We had a lengthy discussion about the risks associated with her surgery as far as her arrhythmic disorder along with Congestive heart failure. Dr. Lee was able to have a conversation with Dr. Chopra her care process manager to discuss the need for ablation before surgery. At this time we feel collectively it would be best for the patient to have the ablation prior to proceeding with a hip replacement. Our goal is to optimize her as much as we can before surgery so she has more successful outcome. The patient does express understanding and we will postpone her surgery at this time and she will continue to follow up with Cardiology for further treatment. Orders: Orders Basic Metabolic Panel Today Z01.818 - Encounter for other preprocedural examination Complete Blood Count Auto Diff Today Z01.818 - Encounter for other preprocedural examination XR hip LT min 2V Today M25.552 - Pain in left hip Hemoglobin A1c Today E11.9 - Type 2 diabetes mellitus without complications Type and Screen Today Z01.818 - Encounter for other preprocedural examination Coding Level of Care Code Est Pt Level 3 (76028) Complex EM visit Add On G2211 Diagnoses Primary osteoarthritis of left hip M16.12
[2024-11-13 11:30] VITALS: BMI 38.6
== END 2024-11-13 13:03 | disposition home or self-care (01) ==
LOC: HO.HOS 11:08
PROVIDERS: Visit Provider Physician Assistant
DX: M16.12 Unilateral primary osteoarthritis, left hip (principal)
CPT/HCPCS: 99214; G2211

== ENCOUNTER → 2024-11-13 11:12 | Outpatient (BNV) | payer MEDICARE, SELFPAY | PROVIDERS: Visit Provider Radiology Diagnostic Radiology | DX: M16.12 Unilateral primary osteoarthritis, left hip (principal) | CPT/HCPCS: 73502 ==

== ENCOUNTER 2025-01-01 13:51 | Outpatient (AMB) | payer MEDICARE, SELFPAY ==
--- OUTSIDE RECORDS SUMMARY | 2020-05-30 09:50 | XMS_ITS | Encounter Summary ---
Author Organization [facility] Address [address] [employer] [facility] [address] [place] [address] Phone Care Team Providers Care Salad Bar Clerk Name Role Phone Benny Fairchild MD Unavailable [phone] Ambreen Little MD Unavailable Mert Dumont MD Primary Care Prov ider Encounter Details Date Type Department Care Team (Late st Contact Info) Description 05/30/2020 9:50 AM EDT Hospital Encounter [facility] [address] [place] [address] [phone] Josie Otero, DIRECTOR ENGINEERING [address] [place] [address] [email or web address] Social History Tobacco Use Types Packs/Day Years Used Date Smoking Tobacco: Former Cigarettes 1 40 1 818 - 1998 Smokeless Tobacco: Never Alcohol Use [...] 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 Josie Pendletonuld DIRECTOR ENGINEERING IMG XR LOWER EXTREMITY Final Result documented in this encounter Visit Diagnoses Not on filedocumented in this encounter Care Teams Salad Bar Clerk Relationship Specialty Start Date End Date Mert Dumont MD [address] [place] [address] PCP - General Family Medicine 05/15/17 Benny Fairchild MD [address] [place] [address] Historical LMR Provider 12/27/16 2 Ambreen Little MD [facility]3 [place] [address] Historical LMR Provider 12/27/16 2 documented as of this encounter Additional Source Comments The information contained in this document represents components of the legal health record. It is not the complete legal health record.[facility]
--- OUTSIDE RECORDS SUMMARY | 2020-05-30 09:55 | XMS_ITS | Encounter Summary ---
Author Organization [facility] Address [address] [employer] [place] [address] [place] [address] Phone Care Team Providers Care Health Care Coordinator Name Role Phone Benny Fairchild MD Unavailable [phone] Ambreen Little MD Unavailable Mert Dumont MD Primary Care Prov ider Encounter Details Date Type Department Care Team (Late st Contact Info) Description 05/30/2020 9:55 AM EDT Hospital Encounter [facility] [address] [place] [address] [phone] Josie Otero, CHAINSTITCH FELLED SEAM OPERATOR [address] [place] [address] [email or web address] Social History Tobacco Use Types Packs/Day Years [...] 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 Josie Otero CHAINSTITCH FELLED SEAM OPERATOR IMG XR LOWER EXTREMITY Final Result documented in this encounter Visit Diagnoses Not on filedocumented in this encounter Care Teams Health Care Coordinator Relationship Specialty Start Date End Date Mert Dumont MD [address] [place] [address] [email or web address] PCP - General Family Medicine 05/15/17 Benny Fairchild MD [address] [place] [address] Historical LMR Provider 12/27/16 2 Ambreen Little MD [address] [place] [address] Historical LMR Provider 12/27/16 2 documented as of this encounter Additional Source Comments The information contained in this document represents components of the legal health record. It is not the complete legal health record.[facility]
[2025-01-01 14:04] VITALS: BP 130/72; PULSE 62; BMI 39.4
--- NOTE | 2025-01-01 14:04 | A.OFFVIS_ITS ---
Vital Signs 01/01/25 14:04 Height 5 ft 4 in Weight 229 lb 4.492 oz BMI 39.4 BP 130/72 Blood Pressure Location Lt brachial Position Sitting Pulse 62 Intake Visit Reasons: f/up jerry and surgery Intake Note: Follow-up after jerry mibi cleared for surgery feeling good Retail Maintenance Technician Required: No Digital Account Executive: Digital Account Executive Present Accompanied by: Spouse Allergies Seasonal Allergies Allergy (Mild, Verified 11/13/24 11:30) itching and sneezing Medication List - Last Reconciled 01/01/25 by Franco Chopra MD acetaminophen ER 1,300 mg PO Q8-10H PRN albuterol sulfate 90 mcg/actuation 1 inh inhalation Q6-8H PRN amiodarone 200 mg PO DAILY apixaban (Eliquis) 5 mg PO BID cholecalciferol (vitamin D3) (Vitamin D3) 125 mcg PO DAILY empagliflozin (Jardiance) 10 mg PO DAILY [Folding Front Wheeled walker Duration: 99 days] gabapentin 300 mg PO BID metoprolol succinate ER 50 mg PO BEDTIME torsemide 10 mg See Protocol PO DAILY vit C,Z-Ix-retex-lutein-zeaxan 250-90-40-1 mg (PreserVision AREDS-2) 1 tab PO BID HPI Comments Details: Yina comes for follow-up. She is very frustrated because her hip surgery ris ks cancel and she has very limited about the same. She says most frustrated because she has not informed and she showed up for surgery on that day. Patient comes for follow up of atrial flutter. Scheduled to see electrophysiology in early January for consideration of ablation. She comes in today and noted to be in atrial paced rhythm with converted to sinus rhythm. She continues to have exertional shortness of breath. She has not had any worsening orthopnea, PND, leg edema although it has been difficult to say age. She takes her usual torsemide dose. No weight monitoring. She says she might be getting more short of breath as she is not as active because of her hip issues. [facility] Medical History (Updated 01/05/25 @ 09:04 by Franco Chopra MD) History of cardioversion Acute on chronic diastolic (congestive) heart failure Spinal stenosis SOB (shortness of breath) Atrial fibrillation Foot fracture, left (~10/07/24) Arthritis Persistent atrial fibrillation Sick sinus syndrome Cardiac pacemaker in situ (HFpEF) heart failure with preserved ejection fraction Hypertension TIA (transient ischemic attack) Wears dentures Wears hearing aid in both ears Hx of cardiac pacemaker Degenerative joint disease Peripheral venous insufficiency Transient cerebral ischemia Hearing loss Retinal artery occlusion Obstructive sleep apnea Obesity (BMI 30-39.9) Surgical History H/O heart surgery History of right hip replacement Hx of tubal ligation Hx laparoscopic cholecystectomy History of esophagogastroduodenoscopy (EGD) Hx of colonoscopy Status post ORIF of fracture of ankle (~1984) History of cataract surgery (~2016) Social History Household Members: Spouse Housing: House Are you a primary resident caregiver to a significant other at home: No Do you presently have visiting nurse or other home services: No Alcohol intake: never Patient Tobacco Use Status: Former Tobacco user Tobacco use type: Cigarette Years Smoked: 20 Advance Directives Date on File: 09/20/17 service: No Current occupational status: retired Current occupation: right handed Review of Systems Const Denies chills, Denies fatigue, Denies fever(s), Denies frequent falls, Denies weakness, Denies weight gain and Denies weight loss ENT Denies dizziness Card Denies chest pain, Denies leg edema, Denies lightheadedness, Denies palpitations, Denies dyspnea, Denies dyspnea on exertion, Denies orthopnea and Denies other (loss of consciousness) Resp Denies cough, Denies dyspnea and Denies dyspnea on exertion GI Denies hematochezia and Denies change in stool character Musc Denies abnormal gait, Denies muscle weakness, Denies numbness, Denies radiating pain into limb and Denies tingling Neuro Denies Abnormal speech present, Denies abnormal gait, Denies dizziness, Denies frequent falls, Denies numbness, Denies tingling and Denies weakness Endo Denies fatigue and Denies palpitations Physical Exam Vital Signs: Last Vital Signs Pulse 62 01/01/25 14:04 BP 130/72 01/01/25 14:04 BMI result Body Mass Index 39.4 Const General: cooperative, comfortable, alert, awake, Physically active, in distress mild and respiratory and well groomed Nutritional Appearance: obese Orientation/consciousness: patient oriented x3 Limitations: no limitations HEENT Head: Yes normocephalic and Yes atraumatic Neck Neck: Yes trachea midline, Yes supple and Yes JVD Resp Effort & Inspection: normal respiratory effort Auscultation: clear to auscultation bilaterally Cardio Jugular venous distension: JVD Palpation: normal PMI Rate: tachycardic Heart sounds: S1 normal heart sound present, S2 normal heart sound present, no click, no gallops, no murmurs and no rubs GI Auscultation: normal bowel sounds Skin General skin exam: no rashes or lesions noted Neuro General: patient oriented x3 and no focal motor deficits Speech: No Abnormal speech present Extrem Other: There is a large open wound on the anterior aspect of the upper part of the left leg with fall smelling discharge with pus oozing out with blood-tinged secretion with necrotic skin flap General: No clubbing, No cyanosis, Yes edema (Left lower extremity swelling below knee) and Yes venous stasis dermatitis Psych Appearance: grossly normal Office Procedures Cardiac Device Check Cardiac Device Check Details: Dual-chamber Medtronic pacemaker programmed in DDDR at 60 beats per minute. Has been in atrially paced rhythm for few weeks. Atrial and ventricular pacing thresholds adequate. Atrial ventricular lead impedance is stable. Battery life is adequate [id number] Cardiac Device Check, pacemaker dual lead Procedure code (CPT) selection complete EKG Details: EKG shows AV dual paced rhythm. [id number], Complete Assessment & Plan Assessment & Plan (1) Paroxysmal atrial fibrillation: Code(s): I48.0 - Paroxysmal atrial fibrillation Category: Medical Plan: Paroxysmal atrial fibrillation with recurrent atrial fibrillation/flutter despite amiodarone therapy with worsening symptoms. I think she would benefit from ablation on top of her current antiarrhythmic drug therapy to maintain rhythm which has helped her to prevent hospitalization in his heart failure s yndrome. This was discussed with her. She is scheduled to see electrophysiology in near future. I have requested electrophysiology to try to schedule her ablation sooner rather than later. Continue amiodarone therapy he is currently she is maintaining her rhythm. Avoidance of stimulants discussed. Continue concomitant metoprolol therapy. Continue full oral anticoagulation, currently on Eliquis 5 mg b.i.d. which she has taken uninterrupted. She is currently waiting hip surgery which is her main issue that prevents her from walking in his most likely contributing to her exertional shortness of breath. She will have to wait at least 6 weeks post ablation to pursue hip surgery as she will need to withhold her anticoagulation. Anticipate in mid March. She was upset about it but understands. (2) Cardiac pacemaker in situ: Comment: Medtronic dual-chamber pacemaker Code(s): Z95.0 - Presence of cardiac pacemaker Category: Medical Plan: Cardiac pacemaker in-situ for sick sinus syndrome. Pacemaker is working well. Reprogrammed for adequate function. Will continue follow remotely. (3) (HFpEF) heart failure with preserved ejection fraction: Code(s): I50.30 - Unspecified diastolic (congestive) heart failure Category: Medical Plan: Heart failure preserved ejection fraction with worsening shortness of breath. Clinically appears to be euvolemic on current diuretic dose along with Jardiance therapy. Continue the same. Daily weight monitoring avoidance salt loading was discussed. Additional diuretics as need be. Continue rhythm control approach as above. Continue aggressive blood pressure control which is currently well optimized. She has limited activity level with her hip issues, probably contributing to her worsening shortness of breath. Will follow up in the clinic in 3 months time, sooner PRN. Thank you for allowing me to partake in her care Coding Level of Care Code Est Pt Level 4 (09689) Complex EM visit Add On G2211 Diagnoses Paroxysmal atrial fibrillation I48.0 Cardiac pacemaker in situ Z95.0 (HFpEF) heart failure with preserved ejection fraction I50.30 CPT Codes Cardiac Device Check - Cardiac Device 2: [id number] Cardiac Device Check, pacemaker dual lead ([id number]) EKG - CPT: 78449-[id number], Complete ([id number])
--- OUTSIDE RECORDS SUMMARY | 2025-01-01 17:45 | XMS_ITS | Encounter Summary ---
Author Organization [facility] Address [address] [place] [address] Phone Care Team Providers Care Welfare Manager Name Role Phone Benny Fairchild MD Unavailable [phone] Ambreen Little MD Unavailable Mert Dumont MD Primary Care Prov ider Reason for Referral * MRI/CAT Scan - Closed Specialty Diagnoses / Procedures Referred By Julio C guy Referred To Contact Radiology Diagnoses Solitary pulmonary nodule Procedures CT Chest Mert Dumont MD Phone: tel: fax: [email or web address] Referral ID Status Reason Start Date Expiration Date Visits Re quested Visits Authorized [id number] Closed 09/30/2018 09/30/2019 1 1 Encounter Details Date Type Department Care Team (Late st Contact Info) Description 09/30/2018 Transcribe Orders Virtual Department [address] [place] [address] Mert Dumont MD [address] [place] [address] [phone] [email or web address] Solitary pulmonary nodule (Primary Dx) Social History [...] nodule documented in this encounter Care Teams Welfare Manager Relationship Specialty Start Date End Date Mert Dumont MD [facility] [place] [address] PCP - General Family Medicine 05/15/17 Benny Fairchild MD [address] [place] [address] Historical LMR Provider 12/27/16 2 Ambreen Little MD [facility]3 [place] [address] Historical LMR Provider 12/27/16 2 documented as of this encounter Additional Source Comments The information contained in this document represents components of the legal health record. It is not the complete legal health record.[facility]
--- OUTSIDE RECORDS SUMMARY | 2025-01-01 17:45 | XMS_ITS | Encounter Summary ---
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 Not on file Not on savannah e documented as of this encounter Plan of Treatment Not on file documented as of this encounter Visit Diagnoses Not on filedocumented in this encounter Care Teams Field Aide Relationship Specialty Start Date End Date Mert Dumont MD [address] [place], [place] [id number] [email or web address] PCP - General Family Medicine 05/15/17 Benny Fairchild MD [address] [place] [address] Historical LMR Provider 12/27/16 2 Ambreen Gonzalez MD [address] [place] [address] Historical LMR Provider 12/27/16 2 documented as of this encounter Additional Source Comments The information contained in this document represents components of the legal health record. It is not the complete legal health record.[facility]
--- OUTSIDE RECORDS SUMMARY | 2025-01-01 17:45 | XMS_ITS | Encounter Summary ---
Author Organization [facility] Address [address] [place] [address] Phone Care Team Providers Care Management Psychologist Name Role Phone Mert Dumont MD Primary Care Prov ider Encounter Details Date Type Department Care Team (Late st Contact Info) Description 04/26/2021 Procedure Pass Non-Invasive Cardiology [address] [place] [address] Social History Tobacco Use Types Packs/Day Years [...] on filedocumented in this encounter Care Teams Management Psychologist Relationship Specialty Start Date End Date Mert Dumont MD PCP - General Family Medicine 05/15/17 documented as of this encounter Additional Source Comments The information contained in this document represents components of the legal health record. It is not the complete legal health record.[facility]
--- OUTSIDE RECORDS SUMMARY | 2025-01-01 17:45 | XMS_ITS | Encounter Summary ---
Author Organization [facility] Address [address] [place] [address] [place] [address] Phone Care Team Providers Care Overnight Houseperson Name Role Phone Benny Fairchild MD Unavailable [phone] Ambreen Little MD Unavailable Mert Dumont MD Primary Care Prov ider Encounter Details Date Type Department Care Team (Late st Contact Info) Description 07/04/2017 Ancillary Orders Non-Invasive Cardiology [address] [place] [address] Jose Longo MD [address] [place] [address] [email or web address] Sick sinus syndrome Social History Tobacco Use Types Packs/Day Years Used Date Smoking Tobacco: Former Cigarettes 1 40 1 958 - 5547 Smokeless Tobacco: Never Alcohol Use Standard Drinks/Week [...] 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 No device related complaints. Indication for device: SSS. Examination: Device type: Pacemaker Cook Jelly: Medtronic Mode: AAIR-DDDR LRL/UPL: 60/130 bpm Mode [...] dysfunction documented in this encounter Care Teams Overnight Houseperson Relationship Specialty Start Date End Date Mert Dumont MD [address] [place] [address] PCP - General Family Medicine 05/15/17 Benny Fairchild MD [address] [place] [address] Historical LMR Provider 12/27/16 2 Ambreen Little MD [address] [place] [address] Historical LMR Provider 12/27/16 2 documented as of this encounter Additional Source Comments The information contained in this document represents components of the legal health record. It is not the complete legal health record.[facility]
--- OUTSIDE RECORDS SUMMARY | 2025-01-01 17:45 | XMS_ITS | Encounter Summary ---
Author Organization [facility] Address [address] [facility] [address] [place] [address] Phone Care Team Providers Care Arts Administrator Name Role Phone Benny Fairchild MD Unavailable [phone] Ambreen Little MD Unavailable Mert Dumont MD Primary Care Prov ider Encounter Details Date Type Department Care Team (Late st Contact Info) Description 11/26/2020 Procedure Pass Non-Invasive Cardiology [address] [place] [address] Social History Tobacco Use Types [...] on filedocumented in this encounter Care Teams Arts Administrator Relationship Specialty Start Date End Date Mert Dumont MD [address] [place], [place] [id number] [email or web address] PCP - General Family Medicine 05/15/17 Benny Fairchild MD [address] [place] [address] Historical LMR Provider 12/27/16 2 Ambreen Gonzalez MD [address] [place] [address] Historical LMR Provider 12/27/16 2 documented as of this encounter Additional Source Comments The information contained in this document represents components of the legal health record. It is not the complete legal health record.[facility]
--- OUTSIDE RECORDS SUMMARY | 2025-01-01 17:45 | XMS_ITS | Encounter Summary ---
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 It is not the complete legal health record.[facility]
--- OUTSIDE RECORDS SUMMARY | 2025-01-01 17:45 | XMS_ITS | Encounter Summary ---
Author Organization [facility] Address [address] [place] [address] [place] [address] Phone Care Team Providers Care Award Machine Operator Name Role Phone Benny Fairchild MD Unavailable [phone] Ambreen Little MD Unavailable Mert Dumont MD Primary Care Prov ider Encounter Details Date Type Department Care Team (Late st Contact Info) Description 10/29/2018 Ancillary Orders [facility] [address] [place] [address] Jose Longo MD [address] [place] [address] [place] [address] [email or web address] Social History Tobacco Use Types Packs/Day Years Used Date Smoking Tobacco: Former Cigarettes 1 40 1 958 - 9999 Smokeless Tobacco: Never Alcohol Use Standard Drinks/Week [...] 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 Not on file Not on savannah e documented as of this encounter Plan of Treatment Not on file documented as of this encounter Visit Diagnoses Not on filedocumented in this encounter Care Teams Award Machine Operator Relationship Specialty Start Date End Date Mert Dumont MD [facility] [place] [address] [email or web address] PCP - General Family Medicine 05/15/17 Benny Fairchild MD [address] [place] [address] Historical LMR Provider 12/27/16 2 Ambreen Little MD [facility] [place] [address] Historical LMR Provider 12/27/16 2 documented as of this encounter Additional Source Comments The information contained in this document represents components of the legal health record. It is not the complete legal health record.[facility]
--- OUTSIDE RECORDS SUMMARY | 2025-01-01 17:45 | XMS_ITS | Encounter Summary ---
Author Organization [facility] Address [address] [place] [address] Phone Care Team Providers Care Art Glass Designer Name Role Phone Mert Dumont MD Primary Care Prov ider Encounter Details Date Type Department Care Team (Late st Contact Info) Description 01/27/2022 Procedure Pass Non-Invasive Cardiology [address] [place] [address] Social History Tobacco Use Types Packs/Day Years [...] on filedocumented in this encounter Care Teams Art Glass Designer Relationship Specialty Start Date End Date Mert Dumont MD PCP - General Family Medicine 05/15/17 documented as of this encounter Additional Source Comments The information contained in this document represents components of the legal health record. It is not the complete legal health record.[facility]
--- OUTSIDE RECORDS SUMMARY | 2025-01-01 17:45 | XMS_ITS | Encounter Summary ---
Author Organization [facility] Address [address] [place] [address] [place] [address] Phone Care Team Providers Care Consulting Practice Manager Name Role Phone Benny Fairchild MD Unavailable [phone] Ambreen Little MD Unavailable Mert Dumont MD Primary Care Prov ider Encounter Details Date Type Department Care Team (Late st Contact Info) Description 07/04/2017 Ancillary Orders [facility] [address] [place] [address] Jose Longo MD [address] [place] [address] [place] [address] Social History Tobacco Use Types Packs/Day Years Used Date Smoking Tobacco: Former Cigarettes 1 40 1 958 - 8669 Smokeless Tobacco: Never Alcohol Use Standard Drinks/Week [...] on filedocumented in this encounter Care Teams Consulting Practice Manager Relationship Specialty Start Date End Date Mert Dumont MD [facility]3 [place] [address] [email or web address] PCP - General Family Medicine 05/15/17 Benny Fairchild MD [address] [place] [address] Historical LMR Provider 12/27/16 2 Ambreen Little MD [facility] [place] [address] Historical LMR Provider 12/27/16 2 documented as of this encounter Additional Source Comments The information contained in this document represents components of the legal health record. It is not the complete legal health record.[facility]
--- OUTSIDE RECORDS SUMMARY | 2025-01-01 17:45 | XMS_ITS | Encounter Summary ---
Author Organization [facility] Address [address] [place] [address] [place] [address] Phone Care Team Providers Care Information Assoc Name Role Phone Benny Fairchild MD Unavailable [phone] Ambreen Little MD Unavailable Mert Dumont MD Primary Care Prov ider Encounter Details Date Type Department Care Team (Late st Contact Info) Description 07/20/2017 Ancillary Orders [facility] [address] [place] [address] Jose Longo MD [address] [place] [address] [place] [address] Social History Tobacco Use Types Packs/Day Years Used Date Smoking Tobacco: Former Cigarettes 1 40 1 958 - 2696 Smokeless Tobacco: Never Alcohol Use Standard Drinks/Week [...] 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 Not on file Not on savannah e documented as of this encounter Plan of Treatment Not on file documented as of this encounter Visit Diagnoses Not on filedocumented in this encounter Care Teams Information Assoc Relationship Specialty Start Date End Date Mert Dumont MD [facility] [place] [address] [email or web address] PCP - General Family Medicine 05/15/17 Benny Fairchild MD [address] [place] [address] Historical LMR Provider 12/27/16 2 Ambreen Little MD [facility] [place] [address] Historical LMR Provider 12/27/16 2 documented as of this encounter Additional Source Comments The information contained in this document represents components of the legal health record. It is not the complete legal health record.[facility]
--- OUTSIDE RECORDS SUMMARY | 2025-01-01 17:45 | XMS_ITS | Encounter Summary ---
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 It is not the complete legal health record.[facility]
--- OUTSIDE RECORDS SUMMARY | 2025-01-01 17:45 | XMS_ITS | Encounter Summary ---
Author Organization [facility] Address [address] [place] [address] [place] [address] Phone Care Team Providers Care Boot Lace Cutter Machine Name Role Phone Benny Fairchild MD Unavailable [phone] Ambreen Little MD Unavailable Mert Dumont MD Primary Care Prov ider Encounter Details Date Type Department Care Team (Late st Contact Info) Description 10/29/2018 Ancillary Orders Non-Invasive Cardiology [address] [place] [address] Jose Longo MD [address] [facility] [place] [address] [email or web address] Sick sinus syndrome Social History Tobacco Use Types Packs/Day Years Used Date Smoking Tobacco: Former Cigarettes 1 40 1 958 - 1037 Smokeless Tobacco: Never Alcohol Use Standard Drinks/Week [...] 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 No device related complaints. Indication for device: SSS. Examination: Device type: Pacemaker Bead Picker: Medtronic Mode: AAIR-DDDR LRL/UPL: 60/130 bpm Mode [...] dysfunction documented in this encounter Care Teams Boot Lace Cutter Machine Relationship Specialty Start Date End Date Mert Dumont MD [address] [place] [address] PCP - General Family Medicine 05/15/17 Benny Fairchild MD [address] [place] [address] Historical LMR Provider 12/27/16 2 Ambreen Little MD [address] [place] [address] Historical LMR Provider 12/27/16 2 documented as of this encounter Additional Source Comments The information contained in this document represents components of the legal health record. It is not the complete legal health record.[facility]
--- OUTSIDE RECORDS SUMMARY | 2025-01-01 17:45 | XMS_ITS | Encounter Summary ---
Author Organization [facility] Address [address] [place] [address] Phone Care Team Providers Care Hat Lining Blocker Name Role Phone Benny Fairchild MD Unavailable [phone] Ambreen Little MD Unavailable Mert Dumont MD Primary Care Prov ider Reason for Referral * Physical Therapy (Routine) - Closed Specialty Diagnoses / Procedures Referred By Conttea t Referred To Contact Physical Therapy Diagnoses Dizziness and giddiness Mert Dumont MD Phone: tel: fax: mailto:[email or web address] [address] [address] Phone: tel: Referral ID Status Reason Start Date Expiration Date Visits Re quested Visits Authorized [id number] Closed 05/15/2017 03/11/2018 99 99 Encounter Details Date Type Department Care Team (Late st Contact Info) Description 05/15/2017 Transcribe Orders [facility] [address] [place] [address] Mert Dumont MD [address] [place] [address] [phone] [email or web address] Dizziness and giddiness (Primary Dx) [...] Associated Diagnoses Order Schedule Ambulatory referral to [facility] Physical Therapy Outpatient Referral Routine Dizziness and giddiness Ordered: 05/15/2017 documented as of this encounter Visit Diagnoses Diagnosis Dizziness and giddiness- Primary documented in this encounter Care Teams Hat Lining Blocker Relationship Specialty Start Date End Date Mert Dumont MD [facility] [place] [address] [email or web address] PCP - General Family Medicine 05/15/17 Benny Fairchild MD [address] [place] [address] Historical LMR Provider 12/27/16 2 Ambreen Little MD [address] [place] [address] Historical LMR Provider 12/27/16 2 documented as of this encounter Additional Source Comments The information contained in this document represents components of the legal health record. It is not the complete legal health record.[facility]
--- OUTSIDE RECORDS SUMMARY | 2025-01-01 17:46 | XMS_ITS | Encounter Summary ---
Author Organization [facility] Address [address] [place] [address] Phone Care Team Providers Care Chicken Handler Name Role Phone Benny Fairchild MD Unavailable [phone] Ambreen Little MD Unavailable Mert Dumont MD Primary Care Prov ider Reason for Referral * MRI/CAT Scan - Closed Specialty Diagnoses / Procedures Referred By Contac t Referred To Contact Radiology Diagnoses Vertigo Dizziness and giddiness Procedures MRI Brain Mert Dumont MD Phone: tel: fax: mailto: Referral ID Status Reason Start Date Expiration Date Visits Re quested Visits Authorized [id number] Closed 06/15/2017 06/15/2018 1 1 Encounter Details Date Type Department Care Team (Late st Contact Info) Description 06/15/2017 Ancillary Orders Virtual Department [address] [place] [address] Mert Dumont MD [address] [place] [address] [phone] [email or web address] Vertigo; Dizziness and giddiness Social History Tobacco [...] in the right parietal lobe. POS - [id number] Narrative 06/26/2017 11:10 AM EDT HISTORY: Dizziness. [...] anomalyin the right parietal lobe. POS - [id number] Mert Miller MD IMG MR HEAD/NECK F inal Result documented in this encounter Visit Diagnoses Diagnosis Vertigo Dizziness and giddiness Dizziness and giddiness Vertigo Dizziness and giddiness Dizziness and giddiness documented in this encounter Care Teams Chicken Handler Relationship Specialty Start Date End Date Mert Dumont MD [address] [place] [address] PCP - General Family Medicine 05/15/17 Benny Fairchild MD [address] [place] [address] Historical LMR Provider 12/27/16 2 Ambreen Little MD [address] [place] [address] Historical LMR Provider 12/27/16 2 documented as of this encounter Additional Source Comments The information contained in this document represents components of the legal health record. It is not the complete legal health record.[facility]
--- OUTSIDE RECORDS SUMMARY | 2025-01-01 17:46 | XMS_ITS | Encounter Summary ---
Author Organization [facility] Address [address] [employer] [facility] [address] [place] [address] Phone Care Team Providers Care Beamer Operator Name Role Phone Benny Fairchild MD Unavailable Ambreen Little MD Unavailable Mert Dumont MD Primary Care Prov ider Encounter Details Date Type Department Care Team (Late st Contact Info) Description 02/25/2020 Procedure Pass Non-Invasive Cardiology [address] [place] [address] Social History Tobacco Use Types [...] on filedocumented in this encounter Care Teams Beamer Operator Relationship Specialty Start Date End Date Mert Dumont MD [address] [place] [address] [email or web address] PCP - General Family Medicine 05/15/17 Benny Fairchild MD [address] [place] [address] Historical LMR Provider 12/27/16 2 Ambreen Little MD [address] [place] [address] Historical LMR Provider 12/27/16 2 documented as of this encounter Additional Source Comments The information contained in this document represents components of the legal health record. It is not the complete legal health record.[facility]
--- OUTSIDE RECORDS SUMMARY | 2025-01-01 17:46 | XMS_ITS | Encounter Summary ---
Author Organization [facility] Address [address] [employer] [facility] [address] [place] [address] Phone Care Team Providers Care Manual Training Teacher Name Role Phone Benny Fairchild MD Unavailable [phone] Ambreen Little MD Unavailable Mert Dumont MD Primary Care Prov ider Encounter Details Date Type Department Care Team (Late st Contact Info) Description 02/28/2021 Procedure Pass Non-Invasive Cardiology [address] [place] [address] Social History Tobacco Use Types [...] on filedocumented in this encounter Care Teams Manual Training Teacher Relationship Specialty Start Date End Date Mert Dumont MD [address] [place], [place] [id number] [email or web address] PCP - General Family Medicine 05/15/17 Benny Fairchild MD [address] [place] [address] Historical LMR Provider 12/27/16 2 Ambreen Gonzalez MD [address] [place] [address] Historical LMR Provider 12/27/16 2 documented as of this encounter Additional Source Comments The information contained in this document represents components of the legal health record. It is not the complete legal health record.[facility]
--- OUTSIDE RECORDS SUMMARY | 2025-01-01 17:46 | XMS_ITS | Encounter Summary ---
Author Organization [facility] Address [address] [employer] [facility] [address] [place] [address] Phone Care Team Providers Care Industrial Photographer Name Role Phone Benny Fairchild MD Unavailable [phone] Ambreen Little MD Unavailable Mert Dumont MD Primary Care Prov ider Reason for Referral * MRI/CAT Scan - Closed Specialty Diagnoses / Procedures Referred By Contac t Referred To Contact Radiology Diagnoses Essential hypertension Dyspnea on exertion Procedures NC Myocardial Perfusion Stress Single NC Myocardial Perfusion Pharmacologic Stress Multiple Jose Longo MD Phone: tel: fax: mailto:[email or web address] Referral ID Status Reason Start Date Expiration Date Visits Re quested Visits Authorized [id number] Closed 01/16/2018 01/16/2019 1 1 Encounter Details Date Type Department Care Team (Latest Contact Info) Description 02/19/2018 Ancillary Orders [facility] [address], [address] [place] [address] Jose Longo MD [address] [place] [address] [email or web address] Essential hypertension; Dyspnea on exertion [...] abnormality documented in this encounter Care Teams Industrial Photographer Relationship Specialty Start Date End Date Mert Dumont MD [facility] [place] [address] [email or web address] PCP - General Family Medicine 05/15/17 Benny Fairchild MD [address] [place] [address] Historical LMR Provider 12/27/16 2 Ambreen Little MD [facility] [place] [address] Historical LMR Provider 12/27/16 2 documented as of this encounter Additional Source Comments The information contained in this document represents components of the legal health record. It is not the complete legal health record.[facility]
--- OUTSIDE RECORDS SUMMARY | 2025-01-01 17:46 | XMS_ITS | Encounter Summary ---
Author Organization [facility] Address [address] [place] [address] [place] [address] Phone Care Team Providers Care Shell Molder Name Role Phone Benny Fairchild MD Unavailable [phone] Ambreen Little MD Unavailable Mert Dumont MD Primary Care Prov ider Encounter Details Date Type Department Care Team (Late st Contact Info) Description 03/24/2019 Ancillary Orders Non-Invasive Cardiology [address] [place] [address] Jose Longo MD [address] [place] [address] [email or web address] SSS (sick sinus syndrome) Social [...] 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 No device related complaints. Indication for device: SSS. Examination: Device type: Pacemaker Die Tripper: Medtronic Mode: AAIR-DDDR LRL/UPL: 60/130 bpm Mode [...] dysfunction documented in this encounter Care Teams Shell Molder Relationship Specialty Start Date End Date Mert Dumont MD [address] [place] [address] PCP - General Family Medicine 05/15/17 Benny Fairchild MD [address] [place] [address] Historical LMR Provider 12/27/16 2 Ambreen Little MD [address] [place] [address] Historical LMR Provider 12/27/16 2 documented as of this encounter Additional Source Comments The information contained in this document represents components of the legal health record. It is not the complete legal health record.[facility]
--- OUTSIDE RECORDS SUMMARY | 2025-01-01 17:46 | XMS_ITS | Encounter Summary ---
Author Organization [facility] Address [address] [place] [address] Phone Care Team Providers Care Balance And Hairspring Assembler Name Role Phone Benny Fairchild MD Unavailable [phone] Ambreen Little MD Unavailable Mert Dumont MD Primary Care Prov ider Encounter Details Date Type Department Care Team (Late st Contact Info) Description 07/20/2017 Ancillary Orders Non-Invasive Cardiology [address] [place] [address] Jose Longo MD [address] [place] [address] [email or web address] SSS (sick sinus syndrome) Social History Tobacco [...] dysfunction documented in this encounter Care Teams Balance And Hairspring Assembler Relationship Specialty Start Date End Date Mert Dumont MD [address] [place] [address] [email or web address] PCP - General Family Medicine 05/15/17 Benny Fairchild MD [address] [place] [address] Historical LMR Provider 12/27/[address] [facility] [place] [address] Historical LMR Provider 12/27/16 2 documented as of this encounter Additional Source Comments The information contained in this document represents components of the legal health record. It is not the complete legal health record.[facility]
--- OUTSIDE RECORDS SUMMARY | 2025-01-01 17:46 | XMS_ITS | Encounter Summary ---
Author Organization [facility] Address [address] [facility] [address] [place] [address] Phone Care Team Providers Care Premium Service Representative Name Role Phone Benny Fairchild MD Unavailable [phone] Ambreen Little MD Unavailable Mert Dumont MD Primary Care Prov ider Encounter Details Date Type Department Care Team (Late st Contact Info) Description 01/24/2020 Procedure Pass Non-Invasive Cardiology [address] [place] [address] Social History Tobacco Use Types [...] on filedocumented in this encounter Care Teams Premium Service Representative Relationship Specialty Start Date End Date Mert Dumont MD [address] [place] [address] [email or web address] PCP - General Family Medicine 05/15/17 Benny Fairchild MD [address] [place] [address] Historical LMR Provider 12/27/16 2 Ambreen Little MD [address] [place] [address] Historical LMR Provider 12/27/16 2 documented as of this encounter Additional Source Comments The information contained in this document represents components of the legal health record. It is not the complete legal health record.[facility]
--- OUTSIDE RECORDS SUMMARY | 2025-01-01 17:46 | XMS_ITS | Clinical Summary ---
Author Organization [facility] Address [address] [address] Phone Care Team Providers Care Arts Education Teacher Name Role Phone Mert Dumont MD Primary [...] of chronic back pain, previously treated at [facility] with excellent results I will obtain UTD xrays of lumbar spine Consider referral to PT and /or PSSP again Preop examination 12/16/2020 Assessment & Plan (12/16/2020 2:51 PM EDT): Patient seen in the office today prior to upcoming right total hip replacement on 01/11/[address] [place] [address] Lee. She is denying any symptoms concerning for angina, heart failure or arrhythmias at this time. According to the revised cardiac risk index for preoperative risk, patient has a 6.0% chance of , [place] or cardiac arrest within 30 days of [...] activity was discussed with the patient. [facility] # 3604-3991-66 [facility] # [id number] Lot # [id number] Exp. 04/02 Continue Cymbalta [...] activity was discussed with the patient. [facility] # [id number] Lot # [id number] Exp. 04/02 Trochanteric bursitis [...] this topic Medical Devices Implanted Type Area Social Welfare Research Worker Device Identifier Shelf Expiration Date Model / Serial / Lot Lead Pacemaker Capsure Fix Novus Is-1 Bi Atr/Vntr Betty 52 Cm - [id number] Implanted:Qty : 1 on 06/29/2017 by Jose Longo MD at [facility] Lead [employer] [id number] 03/01/2019 5076-45 / [id number] / Lead Pacemaker Capsure Fix Novus Is-1 Bi Atr/Vntr Betty 45 Cm - [id number] Implanted:Qty : 1 on 06/29/2017 by Jose Longo MD at [facility] Lead Heart [employer] 03/01/2019 5076-45 / / Device Pacemaker Cogswell Xt Dr Erum - [id number] Implanted:Qty : 1 on 06/29/2017 by Jose Longo MD at [facility] Pacemaker [employer] [id number] 11/06/2018 [id number] / [id number] / Procedures Procedure Name Priority Date/Time Associated [...] EDT) SODIUM 135 133 - 146 mmol/L [facility] POTASSIUM 4.5 3.3 - 5.1 mmol/L [facility] CHLORIDE 97 96 - 108 mmol/L [facility] CO2 29 21 - 35 mmol/L [facility] BUN 10 6 - 19 mg/dL [facility] CREATININE 0.70 0.5 - 1.5 mg/dL [facility] GLUCOSE 101(H) 70 - 99 mg/dL [facility] ALBUMIN 3.7(L) 3.9 - 4.8 g/dL [facility] TOTAL PROTEIN 6.6 6.5 - 8.0 g/dL [facility] CALCIUM 8.8 8.4 - 10.3 mg/dL [facility] ALKALINE PHOSPHATASE 108 39 - 117 U/L [facility] TOTAL BILIRUBIN 0.4 0.0 - 1.2 mg/dL [facility] AST 33 0 - 37 U/L [facility] ALT 16 0 - 40 U/L [facility] GLOBULIN 2.9 1 - 4.8 g/dL [facility] EGFR 83 >59 mL/min/1.7 3m2 [facility] Comment:Estimated glomerular filtration rate calculated using the CKD-EPI equation. ANION GAP 14 10 - 20 mmol/L [facility] Blood 06/15/2020 2:08 PM EDT 06/15/2020 2:12 PM EDT Demetri VALDEZ LAB BLOOD ORDERABLES Fi nal Result [address] [address] * TSH with reflex (06/29/2017 5:19 AM EDT) TSH 2.36 0.27 - 4.20 uIU/mL [facility] Blood 06/29/2017 5:19 AM EDT 06/29/2017 6:33 AM EDT Vesna Vera PA-C LAB BLOOD ORDERABLES Final Result [address] [address] from Last 3 Months or Most Recently Relevant to Health Maintenance Insurance MEDICARE PART A & B [employer] SUPPLEMENT MEDICARE PART A & B [employer] MED[employer] SUPPLEMENT MEDICARE PART A & B [facility] MEDEX SUPPLEMENT MEDICARE PART A & B Member Subscriber Plan / Payer ( fective 2006-Present) Name:Yina Rutledge Member ID:[id number] Relation to Subscriber:Self Name:Yina Rutledge Subscriber ID:[id number] Payer ID:[id number] Group ID:Not on file Type:Medicare Address: [employer] [address] [place] [id number] [employer] MEDEX SUPPLEMENT MEDICARE PART A & B [employer] SUPPLEMENT MEDICARE PART A & B [employer] SUPPLEMENT MEDICARE PART A & B [employer] MEDEX SUPPLEMENT MEDICARE PART A & B [employer] MED[employer] SUPPLEMENT MEDICARE PART A & B [employer] MEDEX SUPPLEMENT Advance Directives For more information, please contact: [phone] (9AM - 5PM Luz/[facility], Sunday-Sunday) Documents on File Type Date Recorded Patient Restaurant Assistant Expl anation Healthcare Proxy 07/06/2017 3:24 PM * Full Code (Confirmed) (Latest Code Status on File) Date Activated Date Inactivated Comments 06/28/2017 3:34 PM 06/30/2017 2:37 PM Care Teams Arts Education Teacher Relationship Specialty Start Date End Date Mert Dumont MD [email or web address] PCP - General Family Medicine 05/15/17 Additional Source Comments The information contained in this document represents components of the legal health record. It is not the complete legal health record.[facility]
--- OUTSIDE RECORDS SUMMARY | 2025-01-01 17:46 | XMS_ITS | Encounter Summary ---
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 It is not the complete legal health record.[facility]
--- OUTSIDE RECORDS SUMMARY | 2025-01-01 17:46 | XMS_ITS | Encounter Summary ---
Author Organization [facility] Address [address] [place] [address] [place] [address] Phone Care Team Providers Care Quality Assurance Advisor Name Role Phone Benny Fairchild MD Unavailable [phone] Ambreen Little MD Unavailable Mert Dumont MD Primary Care Prov ider Encounter Details Date Type Department Care Team (Late st Contact Info) Description 06/29/2017 Procedure Pass [facility] [address] [place] [address] Social History Tobacco Use Types Packs/Day Years [...] on filedocumented in this encounter Care Teams Quality Assurance Advisor Relationship Specialty Start Date End Date Mert Dumont MD [address] [place] [address] [email or web address] PCP - General Family Medicine 05/15/17 Benny Fairchild MD [address] [place] [address] Historical LMR Provider 12/27/16 2 Ambreen Gonzalez MD [address] [place] [address] Historical LMR Provider 12/27/16 2 documented as of this encounter Additional Source Comments The information contained in this document represents components of the legal health record. It is not the complete legal health record.[facility]
--- OUTSIDE RECORDS SUMMARY | 2025-01-01 17:46 | XMS_ITS | Encounter Summary ---
Author Organization [facility] Address Formerly [facility] [place] [address] [address] Phone Care Team Providers Care Template Worker Name Role Phone Benny Fairchild MD Unavailable [phone] Ambreen Little MD Unavailable Mert Dumont MD Primary Care Prov ider Reason for Referral * Physical Therapy (Routine) - Closed Specialty Diagnoses / Procedures Referred By Conttea t Referred To Contact Physical Therapy Diagnoses Encounter for rehabilitation System, Provider Not In, PhD [address] [address] Phone: tel: Referral ID Status Reason Start Date Expiration Date Visits Re quested Visits Authorized [id number] Closed 08/23/2017 03/11/2018 99 99 Encounter Details Date Type Department Care Team (Late st Contact Info) Description 08/23/2017 Transcribe Orders [facility] [address] [place] [address] Mert Dumont MD [address] [place] [address] [phone] [email or web address] Encounter for rehabilitation (Primary Dx) Social History [...] 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 Not on file Not on savannah e documented as of this encounter Plan of Treatment Not on file documented as of this encounter Procedures Procedure Name Priority Date/Time Associated Diagnosis Comments AMB REFERRAL TO [facility] PHYSICAL THERAPY Routine 10/03/2017 11:56 AM EDT Encounter for rehabilitation documented in this encounter Results * Ambulatory referral to [facility] Physical Therapy (10/03/2017 11:56 AM EDT) us Provider Not In System PhD AMB [facility] REFERRALS Fin al Result documented in this encounter Visit Diagnoses Diagnosis Encounter for rehabilitation- Primary documented in this encounter Care Teams Template Worker Relationship Specialty Start Date End Date Mert Dumont MD [address] [place] [address] PCP - General Family Medicine 05/15/17 Benny Fairchild MD [address] [place] [address] Historical LMR Provider 12/27/16 2 Ambreen Little MD [facility] [place] [address] Historical LMR Provider 12/27/16 2 documented as of this encounter Additional Source Comments The information contained in this document represents components of the legal health record. It is not the complete legal health record.[facility]
--- OUTSIDE RECORDS SUMMARY | 2025-01-01 17:46 | XMS_ITS | Encounter Summary ---
Author Organization [facility] Address [address] [employer] [address] [facility] [address] [place] [address] Phone Care Team Providers Care Australian Rules Footballer Name Role Phone Benny Fairchild MD Unavailable [phone] Ambreen Little MD Unavailable Mert Dumont MD Primary Care Prov ider Encounter Details Date Type Department Care Team (Late st Contact Info) Description 09/28/2017 Procedure Pass [facility] [place], Ct Scan - [address] [id number] Social History Tobacco Use Types Packs/Day Years Used Date Smoking Tobacco: Former Cigarettes 1 40 1 118 - 5746 Smokeless Tobacco: Never Alcohol Use Standard Drinks/Week [...] 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 PCP - General Family Medicine 05/15/17 Benny Fairchild MD [address] [place] [address] Historical LMR Provider 12/27/16 2 Ambreen Little MD [address] [place] [address] Historical LMR Provider 12/27/16 2 documented as of this encounter Additional Source Comments The information contained in this document represents components of the legal health record. It is not the complete legal health record.[facility]
--- OUTSIDE RECORDS SUMMARY | 2025-01-01 17:46 | XMS_ITS | Encounter Summary ---
Author Organization [facility] Address [address] [place] [address] [place] [address] Phone Care Team Providers Care Pier Hand Name Role Phone Benny Fairchild MD Unavailable [phone] Ambreen Little MD Unavailable Mert Dumont MD Primary Care Prov ider Encounter Details Date Type Department Care Team (Late st Contact Info) Description 06/15/2017 Procedure Pass [facility] [place], [address] [place] [address] Social History Tobacco Use Types Packs/Day Years [...] on filedocumented in this encounter Care Teams Pier Hand Relationship Specialty Start Date End Date Mert Dumont MD [address] [place] [address] PCP - General Family Medicine 05/15/17 Benny Fairchild MD [address] [place] [address] Historical LMR Provider 12/27/16 2 Ambreen Little MD [address] [place] [address] Historical LMR Provider 12/27/16 2 documented as of this encounter Additional Source Comments The information contained in this document represents components of the legal health record. It is not the complete legal health record.[facility]
--- OUTSIDE RECORDS SUMMARY | 2025-01-01 17:46 | XMS_ITS | Encounter Summary ---
Author Organization [facility] Address [address] [facility] [address] [place] [address] Phone Care Team Providers Care Hydraulic And Plumbing Installer Name Role Phone Benny Fairchild MD Unavailable [phone] Ambreen Little MD Unavailable Mert Dumont MD Primary Care Prov ider Reason for Referral * Physical Therapy (Routine) - Closed Specialty Diagnoses / Procedures Referred By Contac t Referred To Contact Physical Therapy Diagnoses Encounter for rehabilitation System, Provider Not In, PhD [address] [address] Phone: tel: Referral ID Status Reason Start Date Expiration Date Visits Re quested Visits Authorized [id number] Closed 07/23/2017 07/23/2018 1 1 Encounter Details Date Type Department Care Team (Late st Contact Info) Description 07/23/2017 Transcribe Orders [facility] [address] [place] [address] [phone] Lacey Espinal NP [address] [place] [address] [phone] Encounter for rehabilitation (Primary Dx) Social History [...] 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 Not on file Not on file Not on savannah e documented as of this encounter Plan of Treatment Scheduled Referrals Name Type Priority Associated Diagnoses Orde r Schedule Ambulatory referral to [facility] Physical Therapy Outpatient Referral Routine Encounter for rehabilitation Ordered: 07/23/2017 documented as of this encounter Visit Diagnoses Diagnosis Encounter for rehabilitation- Primary documented in this encounter Care Teams Hydraulic And Plumbing Installer Relationship Specialty Start Date End Date Mert Dumont MD [address] [place] [address] PCP - General Family Medicine 05/15/17 Benny Fairchild MD [address] [place] [address] Historical LMR Provider 12/27/16 2 Ambreen Little MD [facility] [place] [address] Historical LMR Provider 12/27/16 2 documented as of this encounter Additional Source Comments The information contained in this document represents components of the legal health record. It is not the complete legal health record.[facility]
--- OUTSIDE RECORDS SUMMARY | 2025-01-01 17:46 | XMS_ITS | Encounter Summary ---
Author Organization [facility] Address [address] [facility] [address] [place] [address] Phone Care Team Providers Care Assistant To The President Name Role Phone Benny Fairchild MD Unavailable [phone] Ambreen Little MD Unavailable Mert Dumont MD Primary Care Prov ider Encounter Details Date Type Department Care Team (Late st Contact Info) Description 06/28/2017 Procedure Pass [facility], Ct Scan - [address] [phone] Social History Tobacco Use Types Packs/Day Years Used Date Smoking Tobacco: Former Cigarettes 1 40 1 628 - 8252 Smokeless Tobacco: Never Alcohol Use Standard Drinks/Week [...] 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 Not on file Not on savannah e documented as of this encounter Plan of Treatment Not on file documented as of this encounter Visit Diagnoses Not on filedocumented in this encounter Care Teams Assistant To The President Relationship Specialty Start Date End Date Mert Dumont MD [address] [place], [place] [phone] [email or web address] PCP - General Family Medicine 05/15/17 Benny Fairchild MD [address] [place] [address] Historical LMR Provider 12/27/16 2 Ambreen Little MD [address] [place] [address] Historical LMR Provider 12/27/16 2 documented as of this encounter Additional Source Comments The information contained in this document represents components of the legal health record. It is not the complete legal health record.[facility]
== END 2025-01-01 14:57 | disposition home or self-care (01) ==
LOC: HO.HCS 13:52
PROVIDERS: Visit Provider Internal Medicine Cardiovascular Disease
DX: I48.0 Paroxysmal atrial fibrillation (principal); Z95.0 Presence of cardiac pacemaker; I50.30 Unspecified diastolic (congestive) heart failure
CPT/HCPCS: 93010; 93280; 99214; G2211

== ENCOUNTER → 2025-01-01 13:51 | Outpatient (BNVA) | payer MEDICARE, SELFPAY | PROVIDERS: Visit Provider Internal Medicine Cardiovascular Disease | DX: Z45.018 Encounter for adjustment and management of other part of cardiac pacemaker (principal); I48.0 Paroxysmal atrial fibrillation; I50.30 Unspecified diastolic (congestive) heart failure; R94.31 Abnormal electrocardiogram [ECG] [EKG] | CPT/HCPCS: 93005; 93280; 99212 ==

== ENCOUNTER → 2025-01-03 23:59 | Outpatient (BNV) | payer MEDICARE, SELFPAY ==
--- NOTE | 2025-01-05 15:44 | A.OFFVIS_ITS ---
Intake Visit Reasons: Remote device check- Medtronic Allergies Seasonal Allergies Allergy (Mild, Verified 11/13/24 11:30) itching and sneezing PFS Medical History (Updated 01/05/25 @ 09:04 by Franco Chopra MD) History of cardioversion Acute on chronic diastolic (congestive) heart failure Spinal stenosis SOB (shortness of breath) Atrial fibrillation Foot fracture, left (~10/07/24) Arthritis Persistent atrial fibrillation Sick sinus syndrome Cardiac pacemaker in situ (HFpEF) heart failure with preserved ejection fraction Hypertension TIA (transient ischemic attack) Wears dentures Wears hearing aid in both ears Hx of cardiac pacemaker Degenerative joint disease Peripheral venous insufficiency Transient cerebral ischemia Hearing loss Retinal artery occlusion Obstructive sleep apnea Obesity (BMI 30-39.9) Surgical History H/O heart surgery History of right hip replacement Hx of tubal ligation Hx laparoscopic cholecystectomy History of esophagogastroduodenoscopy (EGD) Hx of colonoscopy Status post ORIF of fracture of ankle (~1984) History of cataract surgery (~2016) Social History Household Members: Spouse Housing: House Are you a primary career and guidance counselor to a significant other at home: No Do you presently have visiting nurse or other home services: No Alcohol intake: never Patient Tobacco Use Status: Former Tobacco user Tobacco use type: Cigarette Years Smoked: 20 Advance Directives Date on File: 09/20/17 service: No Current occupational status: retired Current occupation: right handed Office Procedures Cardiac Device Check Cardiac Device Check Details: Remote pacemaker report generated 01/03/2025. Pacemaker function is adequate [id number] Cardiac Device Interrogation, pacemaker Procedure code (CPT) selection complete Assessment & Plan Assessment & Plan (1) Cardiac pacemaker in situ: Comment: Medtronic dual-chamber pacemaker Code(s): Z95.0 - Presence of cardiac pacemaker Category: Medical Plan: See above Coding Level of Care Code Procedure Only Diagnoses Cardiac pacemaker in situ Z95.0 CPT Codes Cardiac Device Check - Cardiac Device 12: [id number] Cardiac Device Interrogation, pacemaker ([id number])
== END ==
PROVIDERS: Visit Provider Internal Medicine Cardiovascular Disease
DX: Z45.018 Encounter for adjustment and management of other part of cardiac pacemaker (principal)
CPT/HCPCS: 93294

== ENCOUNTER 2025-01-20 10:40 | Outpatient (REF) | payer MEDICARE, SELFPAY ==
--- NOTE | ~2025-01-20 | MM_ITS ---
EXAMINATION: DXA BONE DENSITY AXIAL HISTORY: ASYMPTOMATIC MENOPAUSAL STATE TECHNIQUE: Kanjoya Dual energy absorptiometry (DEXA) of the lumbar spine, total left hip, and femoral neck was performed. COMPARISON: None FINDINGS: The bone mineral density of the lumbar spine is 1.143 g/cm2, corresponding to a T-score of -0.3, and a Z-score of 0.4. This is indicative of normal bone mineral density. The bone mineral density of the left total hip is 0.962 g/cm2, corresponding to a T-score of -0.4, and a Z-score of 1. This is indicative of normal bone mineral density. The bone mineral density of the left femoral neck is 1.005 g/cm2, corresponding to a T-score of -0.2, and a Z-score of 1.3. This is indicative of normal bone mineral density. FRACTURE RISK: The FRAX index suggests a ten year probability of major osteoporotic fracture of 15.5%, and of hip fracture 2.4%. MM/XR DEXA axial skeleton IMPRESSION: Based on bone mineral density, and according to World Health Organization (WHO) criteria, the diagnosis is consistent with normal bone mineral density based on lowest T score of -0.4 in the left femur. Statistically, 68% of repeat scans fall within 1 SD (+/- 0.010 g/cm2 for AP spine L1-L4) and 1 SD (+/- 0.012 g/cm2 for femur total) FRAX is a trademark of the [employer] Met[employer], a World Health Organization (WHO) Collaborating Center. Electronically signed by: Mackenzie Man MD 01/20/2025 11:34 AM [facility]
== END 2025-01-20 10:41 | disposition home or self-care (01) ==
LOC: HO.MAMMO 10:40
PROVIDERS: PCP Family Medicine; Visit Provider Family Medicine
DX: Z13.820 Encounter for screening for osteoporosis (principal); Z78.0 Asymptomatic menopausal state
CPT/HCPCS: 77080

== ENCOUNTER → 2025-01-20 11:00 | Outpatient (BNV) | payer MEDICARE, SELFPAY | PROVIDERS: PCP Family Medicine; Visit Provider Radiology Diagnostic Radiology | DX: E28.39 Other primary ovarian failure (principal) | CPT/HCPCS: 77080 ==